=== PATIENT | male | born 1960 | race Two or more races ===

== ENCOUNTER 2024-04-28 13:36 | Emergency (ER) | payer MEDICARE, OTHER, SELFPAY ==
[2024-04-28 13:38] VITALS: BP 124/79; PULSE 101; RESP 18; TEMP 38.9; O2SAT 95
--- NOTE | 2024-04-28 13:41 | XR_ITS ---
Examination: AP chest single view TECHNIQUE: AP portable semiupright chest single view Exam date and time: April 28, 2024 1357 hours INDICATIONS: Sepsis fever today. FINDINGS: Minor atelectasis right midlung Minor prominence left ventricle No lobar pneumonia or pulmonary edema Old fracture right clavicle IMPRESSION: No lobar pneumonia or pulmonary edema
--- NOTE | 2024-04-28 13:41 | EKG_ITS ---
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
--- NOTE | 2024-04-28 13:42 | EDNOTE_ITS ---
ED General RME/HPI General Chief complaint: Fever Stated complaint: FEVER/ RT LEG SWELLING Time Seen by Provider: 04/28/24 13:39 Arrival date/time: 04/28/24 13:36 CC: Fever HPI patient presents to the emergency room via EMS with warm to touch. This was referred by wound care nurse for right foot wound. The patient is a diabetic with multiple amputation including a left BKA, right hand has had digits 2 through 5 amputated. Right foot is in a heavy dressing. Patient is awake alert and oriented. Related Data Home Medications ?Medication ?Instructions ?Recorded ?Confirmed insulin glargine 100 unit/mL (3 35 unit subcut BID 06/24/20 04/09/24 mL) subcutaneous pen (Lantus Solostar U-100 Insulin) metformin 1,000 mg tablet 1,000 mg PO BID 06/24/20 04/09/24 aspirin 81 mg tablet,delayed 81 mg PO QDAY 03/23/22 04/09/24 release gabapentin 300 mg capsule 300 mg PO QDAY 01/01/24 04/09/24 rosuvastatin 20 mg tablet 20 mg PO QDAY 01/01/24 04/09/24 tamsulosin 0.4 mg capsule (Flomax) 0.4 mg PO DAILY 01/01/24 04/09/24 bumetanide 1 mg tablet 1 mg PO BID 01/19/24 04/09/24 Previous Rx's ?Medication ?Instructions ?Recorded levofloxacin 750 mg tablet 750 mg PO Q24H 10 days #10 tabs 04/28/24 Allergies Allergy/AdvReac Type Severity Reaction Status Date / Time No Known Allergies Allergy Verified 04/28/24 14:49 Review of Systems Review of Systems Narrative Review of Systems: GEN: + fever, no chills, no weight loss EYES: No discharge, no visual changes, no pain HEENT: No ear pain, no congestion, no sore throat PULM: No shortness of breath, no cough, no congestion CV: No chest pain, no dyspnea on exertion, no palpitations GI: No nausea, no vomiting, no diarrhea, no pain, no constipation : No frequency, no urgency, no dysuria MUSC/SKEL: No joint pain, no back pain SKIN: No rash PSYCH: No hallucinations, no depression HEME/LYMPH: No easy bleeding or bruising tendencies NEURO: No weakness, no headache Past Medical History Past Medical History NEUROLOGIC: Positive Neurological Disorders and Peripheral Neuropathy; Negative Cerebrovascular Accident, Transient Ischemic Attacks (TIA), Dementia, Alzheimer's Disease, Parkinson's Disease, Brain Tumor, Meningitis, Seizures, Epilepsy, Multiple Sclerosis, Cerebral Palsy, Amyotrophic Lateral Sclerosis (ALS/Sara Gehrig's), Guillain-[place] Syndrome, Spina Bifida, Paralysis, Eldridge's Palsy, Subdural Hematoma, Migraine, Head Trauma, Spinal Cord Injury or Traumatic Brain Injury CARDIAC: Positive Cardiac Disorders, Myocardial Infarction, Coronary Artery Disease, Hypercholesterolemia, Cellulitis and Hypertension; Negative Cardiac Arrhythmia, Atrial Fibrillation, Angina, Heart Murmur, Atherosclerotic Heart Disease, Peripheral Vascular Disease, Aneurysm, Congestive Heart Failure, Congenital Heart Disease, Valvular Heart Disease, Rheumatic Fever, Cardiomyopathy, Edema, Pericarditis, Deep Vein Thrombosis, Hypotension or Varicose Veins RESPIRATORY: Positive Pneumonia; Negative Chronic Obstructive Pulmonary Disease (COPD), Asthma, Bronchitis, Emphysema, Pulmonary Fibrosis, Cystic Fibrosis, Tuberculosis, Pulmonary Embolism, Pulmonary Edema or Sleep Apnea GASTROINTESTINAL: Negative Gastrointestinal Disorders, Hepatitis, Cirrhosis, Pancreatitis, Celiac Disease, Gall Bladder Disease, Gastrointestinal Bleed, Esophageal Varices, Mclaughlin's Esophagus, Colitis, Ulcerative Colitis, Diverticulitis, Diverticulosis, Ulcer, Colorectal Cancer, Irritable Bowel, Crohn's Disease, Obstructive Bowel, Hiatal Hernia, Hemorrhoids, Gastroesophageal Reflux Disease or Obesity GENITOURINARY: Negative Genitourinary Disorders, Renal Disease, Kidney Stones, Polycystic Kidney Disease, Neurogenic Bladder, Inguinal Hernia, Dialysis, Prostate Cancer or Benign Prostatic Hyperplasia REPRODUCTIVE: Negative Breast Cancer or Testicular Cancer MUSCULOSKELETAL: Positive Musculoskeletal Disorders and Arthritis (Elbow); Negative Muscular Dystrophy, Myasthenia Gravis, Marfan's Syndrome, Bone Cancer, Rheumatoid Arthritis, Osteoporosis, Degenerative Disk Disease, Gout, Scoliosis, Carpal Tunnel Syndrome, Fibromyalgia, Fractures, Degenerative Joint Disease, Osteomyelitis or Poliovirus ENT: Negative Cataracts, Glaucoma, Blind, Retinal Detachment, Macular Degeneration, Ear Infection, Deafness, Head Trauma or Eye Prosthesis ENDOCRINE: Positive Endocrine Disorders and Diabetes Mellitus Type 2; Negative Diabetes Mellitus Type 1, Hypoglycemia, [place]'s Syndrome, Eusebio's Disease, Hyperthyroidism, Hypothyroidism, Parathyroid Disease, Pituitary Disease, Systemic Lupus Erythematosus, Syndrome of Inappropriate Antidiuretic Hormone (SIADH), Adrenal Disease or Graves' Disease HEMATOLOGIC: Negative Blood Disorders, Anemia, Leukemia, Hemophilia, Thalassemia, Sickle Cell Disease or Clotting Problems PSYCHO/SOCIAL: Negative Psychiatric Problems, Schizophrenia, Recreational Drug Use, Bipolar Disorder, Depression, Anxiety, Behavior Problems, Self-Mutilation, Attention Deficit Disorder, Attention Deficit Hyperactivity Disorder, Post Traumatic Stress Disorder or Eating Disorder OTHER HISTORY: Positive Hospitalization and Chicken Pox; Negative Autoimmune Disease, Down Syndrome, Autism, Developmental Delay, Shingles, Falls, Blood Transfusions, Blood Transfusion Reaction, Anesthesia Reactions, Organ Transplant, Chemotherapy, Radiation Therapy, Hyperbaric Therapy, MRSA, VRSA, Vancomycin-Resistant Enterococci, Human Immunodeficiency Virus (HIV), Measles, Mumps, Rubella ([place]ese Measles), Pertussis, Clostridium Difficile, Cancer, Breast Cancer, Colorectal Cancer, Lung Cancer, Prostate Cancer or Testicular Cancer Family History FAMILY HISTORY: Positive Family Cardiac Disorders; Negative Family Psychiatric Problems, Family Respiratory Disorders, Family Gastrointestinal Problems, Family Cancer, Family Surgery or Family Anesthesia Reaction Surgical History SURGICAL: Positive Coronary Stent, Cardiac Catheterization and Angiogram; Negative Cardiac Surgery, Open Heart Surgery, Coronary Artery Bypass Graft, Valve Replacement, Vascular Surgery, Pacemaker, Auto Implanted Cardiovert Defib, Carotid Endarterectomy, Endocrine Surgery, Thyroidectomy, Ear Surgery, Tympanostomy Tube, Eye Surgery, Nose Surgery, Oral Surgery, Tonsillectomy, Adenoidectomy, Cochlear Implant, Corneal Transplant, Throat Surgery, Abdominal Surgery, Tracheostomy, Gastric Bypass Surgery, Gastrostomy, Bowel Surgery, Nephrectomy, Transurethral Resection, Joint Replacement, Amputation, Open Reduction Internal Fixation, Arthroscopy, Neurologic Surgery, Brain Shunt, Vasectomy or Organ Transplant Social History SMOKING STATUS: Never smoker SECOND HAND EXPOSURE: No ED Exam Narrative Physical exam: [General: Mild discomfort but not in any no acute distress Head normocephalic HEENT: Eyes pupils are PERRLA EOMs are intact substance use CT within acceptable limits Neck is supple nontender Chest equal chest rise nontender to palpation Respiratory: Clear to auscultation no wheezes crackles or rubs CV: Rate rhythm is regular no murmurs rubs or clicks Abdomen is distended secondary to body habitus soft nontender no masses positive bowel sounds all 4 quadrants Back: No CVA tenderness no spinous process tenderness from cervical spine thoracic and lumbar spine Skin: Intact no petechiae rash induration ulceration or crepitus Extremities: Left BKA clean dry and intact, right hand amputation of digits 2 through 5 sites are clean dry and intact, right foot: Moving all extremity against resistance cap refill less than 2 seconds neurosensory intact Neuro: Awake alert oriented x3 Glascow coma 15 no focal deficits] Course Course Course Narrative: Patient case discussed with Dr. Garnett who agrees with the discharge plan. Quality Measures none Orders Category Date Time Status Daycare Provider STAT Care 04/28/24 13:41 Active Continuous Pulse Oximetry STAT Care 04/28/24 13:41 Active EKG (ED ONLY) *Do not use* NOW Care 04/28/24 13:41 Completed In and Out Catheter X1PRN Care 04/28/24 13:41 Active Insert IV NOW Care 04/28/24 13:41 Active NPO STAT Care 04/28/24 13:41 Active Strict Intake and Output Routine Care 04/28/24 13:41 Ordered EKG (ED Only) Stat Exams 04/28/24 13:41 Draft XR chest 1V Stat Exams 04/28/24 13:41 Completed XR foot comp RT min 3V Stat Exams 04/28/24 15:52 Completed B-Type Natriuretic Peptide Stat Lab 04/28/24 13:51 Completed Blood Culture (Lab) Stat Lab 04/28/24 13:41 Received CBC Stat Lab 04/28/24 13:51 Completed Comprehensive Metabolic Panel Stat Lab 04/28/24 13:51 Completed LDH (Lactate Dehydrogenase) Stat Lab 04/28/24 13:51 Completed Lactate (Lactic Acid) Stat Lab 04/28/24 13:51 Completed Lipase Stat Lab 04/28/24 13:51 Completed Magnesium Stat Lab 04/28/24 13:51 Completed Partial Thromboplastin Time Stat Lab 04/28/24 13:51 Completed Phosphorous Stat Lab 04/28/24 13:51 Completed Procalcitonin Stat Lab 04/28/24 13:51 Completed Prothrombin Time with INR Stat Lab 04/28/24 13:51 Completed Troponin I Stat Lab 04/28/24 13:51 Completed Urinalysis Stat Lab 04/28/24 15:27 Completed Urine Culture Stat Lab 04/28/24 15:27 Received cefTRIAXone [Rocephin] 1,000 mg Med 04/28/24 17:03 Discontinued Lidocaine 1% 20 ml [Xylocaine 1% 20 ML] 2.1 ml IM X1 cefTRIAXone/D5w 1gm IV premix [Rocephin/D5w 1gm IV Med 04/28/24 16:33 Discontinued premix] 50 ml IV X1 Oxygen Delivery NOW RT 04/28/24 13:41 Active Vital Signs Vital signs: Vital Signs Temperature 102.1 F H 04/28/24 13:38 Pulse Rate 101 H 04/28/24 13:38 Respiratory Rate 18 04/28/24 13:38 Blood Pressure 124/79 04/28/24 13:38 Pulse Oximetry (%) 95 04/28/24 13:38 Oxygen Delivery Method Room Air 04/28/24 13:38 [facility] Patient data External records reviewed:: [facility] previous records and EMS form Clinical information provided by:: patient and EMS Social determinants that could affect healthcare access:: none Patient has the following chronic illnesses:: Diabetes multiple amputations How is presenting disease/condition affected by chronic disease/condition?: u neffected by Evaluation data The following diagnostics were reviewed and interpreted by me:: lab results and radiology exam(s) Lab and/or radiology exams considered but not ordered:: CBC shows leukocytosis 16 5 there is a stable anemia with a hemoglobin of 9.5 CMP shows sodium 131 potassium of 4.6 chloride of 98 CO2 of 24.2 BUN of 36 creatinine 1.80 blood glucose level of 209 BNP of 847 Troponin of 0.138 when reviewed 2 other troponins in the past they have all been elevated and this is the lowest in a considerable amount of time Lipase 34 Pro-Jose 0.27. EKG performed at 1636 shows ventricular rate of 91 MN interval 152 QRS of 96 QTc of 407 this is sinus rhythm nonspecific ST segment changes. Urine is leukocyte Estrace positive with WBCs greater than 3000 yeast no bacteria identified. Interpretation Summary: I suspect this is all related to the urine as it is grossly infected. Patient will be discharged home on Levaquin I feel that the patient's foot is chronic osteomyelitis. Medications Medications considered but not ordered:: None Medication administrations:: Medication Administration History Discontinued Medications Ceftriaxone Sodium 1,000 mg/ (Lidocaine HCl 2.1 ml) 0 mg IM X1 ONE Stop: 04/28/24 17:04 Ceftriaxone Sodium/Dextrose (Rocephin/D5w 1gm Iv Premix) 50 mls @ 100 mls/hr IV X1 ONE Stop: 04/28/24 17:02 None Consultations Consultation(s) initiated? (list below): No Diagnosis Differential Diagnosis ED Complaint MDM: Osteomyelitis UTI sepsis Most likely diagnosis given after review of the tests above:: UTI Admission Indicated Admission indicated?: not indicated Explain why admission is indicated or not indicated:: Stable for discharge Admission Request Was there a request for admission?: No Disposition Plan Disposition Plan: Discharge Discharge Attestation Discharge Attestation: The patient and all family members were given an opportunity to ask questions and understood the discharge instructions. Discharge instructions specifically effects, indications for sooner follow up or return to the emergency department, and the expected course of current diagnosis. Patient condition: Stable Medical Decision Making Differential Diagnosis Differential Diagnosis: Osteomyelitis UTI sepsis Lab Data 04/28/24 13:51 04/28/24 13:51 Labs: Lab Results 04/28/24 04/28/24 Range/Units 13:51 15:27 WBC 16.5 H (3.8-10.6) Thou/mm3 RBC 3.93 L (4.50-5.90) Miln/mm3 Hgb 9.8 L (13.5-16.0) g/dL Hct 29.5 L (41.0-53.0) % MCV 75 L (80-100) fL MCH 24.9 L (25.0-35.0) pg MCHC 33.2 (31.0-37.0) g/dl RDW Std Deviation 43.9 (35.1-43.9) fL Plt Count 404 D (140-440) Thou/mm3 Neut % (Auto) 85 H (37-80) % Lymph % (Auto) 8 L (10-50) % [place] % (Auto) 6 (0-12) % Eos % (Auto) 0 (0-10) % Baso % (Auto) 0 (0-2.5) % Neut # (Auto) 14.1 H (1.8-7.7) Thou/mm3 Lymph # (Auto) 1.2 (1.0-4.8) Thou/mm3 [place] # (Auto) 1.1 H (0.0-0.8) Thou/mm3 Eos # (Auto) 0.0 (0.0-0.5) Thou/mm3 Baso # (Auto) 0.0 (0.0-0.2) Thou/mm3 Immature Gran # (Auto) 0.09 H (0.00-0.00) Thou/mm3 Absolute Nucleated RBC 0.00 (0.00-0.00) Thou/mm3 Immature Gran % 1 H (0-0) % Nucleated RBC % 0 (0) /100 WBC PT 11.1 (9.0-12.2) Seconds INR 1.0 (0.9-1.3) APTT 35.4 (22.0-36.0) Seconds Sodium 131 L (136-145) mMol/L Potassium 4.6 (3.4-5.1) mMol/L Chloride 98 (98-107) mMol/L Carbon Dioxide 24.2 (20.0-31.0) mMol/L Anion Gap 9 (7-16) BUN 36 H (9-23) mg/dL Creatinine 1.8 H (0.6-1.3) mg/dL Estim Creat Clear Calc 40.9 L (>60) mL/min eGFR 41 L (60 - ) See Note BUN/Creatinine Ratio 20 (12-20) Ratio Glucose 209 H (74-106) mg/dL Calculated Osmolality 276 (275-295) Lactic Acid 1.0 (0.4-2.0) mMol/L Calcium 9.2 (8.3-10.6) mg/dL Corrected Calcium 9.2 (8.5-10.1) mg/dL Phosphorus 3.5 (2.4-5.1) mg/dL Magnesium 1.7 (1.6-2.6) mg/dL Total Bilirubin 0.6 (0.3-1.2) mg/dL AST < 8 (0-34) U/L ALT 11 (10-49) U/L Alkaline Phosphatase 120 H (46-116) U/L Lactate Dehydrogenase 117 L (120-246) U/L Troponin I 0.138 H* (0.0-0.045) ng/mL B-Natriuretic Peptide 847 H* (0-100) pg/mL Total Protein 7.7 (5.7-8.2) gm/dL Albumin 4.1 (3.4-4.8) gm/dL Globulin 3.6 H (2.3-3.5) gm/dL Albumin/Globulin Ratio 1.1 L (1.2-2.2) Lipase 34 (12-53) U/L Procalcitonin 0.27 (0.0-0.49) ng/ml Ur Collection Type Clean Catch Urine Color Yellow (Lt Yel-Yel) Urine Clarity Turbid A (Clear/Hazy) Urine pH 6.0 (5.0-7.0) Ur Specific Binger 1.016 (1.001-1.035) Urine Protein 2+ A (Neg - Trace) Urine Glucose (UA) Negative (Negative) Urine Ketones Trace (Negative) Urine Blood 2+ A (Negative) Urine Nitrite Negative (Negative) Urine Bilirubin Negative (Negative) Urine Urobilinogen (Auto) Negative (0.0-1.0) mg/dL Ur Leukocyte Esterase Positive (Negative) Urine RBC 33 H (0-3) /hpf Urine WBC 3049 H (0-5) /hpf Ur Squamous Epith Cells 0 (0-5) /hpf Ur Transition Epith Cell 2 (0-5) /hpf Urine Bacteria None (None) Urine Yeast (Budding) Present A (None) Discharge Plan Plan Patient Disposition: HOME (Self Care) Patient condition on transfer: Stable Prescriptions/Referrals Prescriptions/Med Rec: New levofloxacin 750 mg tablet 750 mg PO Q24H 10 Days Qty: 10 0RF No Action metformin 1,000 mg tablet 1,000 mg PO BID Lantus Solostar U-100 Insulin 100 unit/mL (3 mL) insulin pen 35 unit subcut BID aspirin 81 mg Tablet,Delayed Release (Dr/Ec) 81 mg PO QDAY rosuvastatin 20 mg Tablet 20 mg PO QDAY gabapentin 300 mg Capsule 300 mg PO QDAY tamsulosin [Flomax] 0.4 mg Capsule 0.4 mg PO DAILY bumetanide 1 mg tablet 1 mg PO BID Patient Comments: TAKE 1 TABLET BY MOUTH DAILY FOR ACUTE PULMONARY EDEMA. Referrals: Jalil Le MD [Primary Care Provider] - In 1 week Problem List Clinical Impression: UTI (urinary tract infection) Patient/Caregiver Discharge Instructions Education Materials: Diabetes Treat Severe Foot Infecs, ED Bladder Infection, Male (Adult) Additional Instructions: Take the medications as prescribed if there is a worsening of symptoms return the emergency room immediately for further evaluation. Print Language: Mohawk Stand Alone Forms: [employer] Award Info., Work/School Release, Patient Portal Info Letter Attestation Attestation The patient was seen by the midlevel practitioner. I, the co-signing physician, was present during the entire ER visit. While I did not physically examine the patient, I was available for consultation as needed.
[2024-04-28 13:58] VITALS: PULSE 84; RESP 20; O2SAT 97; BMI 23.3
[2024-04-28 14:06] LABS: Basophils % (Auto) 0 % (0-2.5); Eosinophils % (Auto) 0 % (0-10); Hematocrit 29.5 % (41.0-53.0); Hemoglobin 9.8 g/dL (13.5-16.0); Immature Granulocytes % (Auto) 1 % (0-0); Immature Granulocytes Auto 0.09 Thou/mm3 (0.00-0.00); Lymphocytes # (Auto) 1.2 Thou/mm3 (1.0-4.8); Lymphocytes % (Auto) 8 % (10-50); Mean Corpuscular HGB Conc 33.2 g/dl (31.0-37.0); Mean Corpuscular Hemoglobin 24.9 pg (25.0-35.0); Mean Corpuscular Volume 75 fL (80-100); Monocytes # (Auto) 1.1 Thou/mm3 (0.0-0.8); Monocytes % (Auto) 6 % (0-12); Neutrophils # (Auto) 14.1 Thou/mm3 (1.8-7.7); Neutrophils % (Auto) 85 % (37-80); Nucleated Red Blood Cell % 0 /100 WBC (0); Platelet Count 404 Thou/mm3 (140-440); RDW Standard Deviation 43.9 fL (35.1-43.9); Red Blood Count 3.93 Miln/mm3 (4.50-5.90); White Blood Count 16.5 Thou/mm3 (3.8-10.6)
[2024-04-28 14:12] VITALS: BP 120/68; PULSE 98; RESP 15; TEMP 38.6; O2SAT 95
[2024-04-28 14:23] LABS: B-Type Natriuretic Peptide 847 pg/mL (0-100)
[2024-04-28 14:34] LABS: Alanine Aminotransferase 11 U/L (10-49); Albumin, Serum 4.1 gm/dL (3.4-4.8); Albumin/Globulin Ratio 1.1 (1.2-2.2); Alkaline Phosphatase 120 U/L (46-116); Anion Gap 9 (7-16); Aspartate Amino Transferase < 8 U/L (0-34); BUN/Creatinine Ratio 20 Ratio (12-20); Bilirubin,Total 0.6 mg/dL (0.3-1.2); Blood Urea Nitrogen 36 mg/dL (9-23); Calcium 9.2 mg/dL (8.3-10.6); Calcium (Corrected) 9.2 mg/dL (8.5-10.1); Carbon Dioxide 24.2 mMol/L (20.0-31.0); Chloride 98 mMol/L (98-107); Creatinine (Component) 1.8 mg/dL (0.6-1.3); Estimated Creatinine Clearance 40.9 mL/min (>60); Globulin 3.6 gm/dL (2.3-3.5); Glucose 209 mg/dL (74-106); LDH (Lactate Dehydrogenase) 117 U/L (120-246); Lipase 34 U/L (12-53); Magnesium 1.7 mg/dL (1.6-2.6); Osmolality,Calculated 276 (275-295); Phosphorous 3.5 mg/dL (2.4-5.1); Potassium 4.6 mMol/L (3.4-5.1); Procalcitonin 0.27 ng/ml (0.0-0.49); Sodium 131 mMol/L (136-145); Total Protein 7.7 gm/dL (5.7-8.2); eGFR 41 See Note
[2024-04-28 14:38] LABS: Troponin I 0.138 ng/mL (0.0-0.045)
[2024-04-28 15:21] VITALS: BP 133/72; PULSE 99; RESP 16; TEMP 38.1; O2SAT 98
[2024-04-28 15:40] LABS: Collection Type, Urine Clean Catch; Squamous Epithelial Cell,Urine 0 /hpf (0-5)
--- NOTE | 2024-04-28 15:52 | XR_ITS ---
Examination: Foot, right, 3 views Technique: AP, oblique, lateral views foot, 3 views Date and time of exam: April 28, 2024 1555 hours Comparison December 31, 2023 INDICATIONS: Nonhealing ulcer right foot, status post amputation at the level of the metatarsals FINDINGS: Amputation deformities proximal metatarsals Large ulcer at the amputation site Cortical bone destruction at the amputated second and first metatarsals IMPRESSION: Osteomyelitis involving the amputated ends first and second metatarsals Recommend MRI foot without contrast follow-up
[2024-04-28 15:58] LABS: Partial Thromboplastin Time 35.4 Seconds (22.0-36.0); Prothrombin Time 11.1 Seconds (9.0-12.2)
[2024-04-28 16:16] LABS: Bilirubin,Urine Negative (Negative); Blood,Urine 2+ (Negative); Budding Yeast,Urine Present; Glucose, Urine Negative (Negative); Ketones,Urine Trace (Negative); Leukocyte Esterase,Urine Positive (Negative); Nitrite,Urine Negative (Negative); Protein,Urine 2+ (Neg - Trace); RBC,Urine 33 /hpf (0-3); Specific Gravity,Urine 1.016 (1.001-1.035); Transitional Epi Cells,Urine 2 /hpf (0-5); Urobilinogen,Urine Negative mg/dL (0.0-1.0); WBC,Urine 3049 /hpf (0-5)
[2024-04-28 16:17] LABS: Clarity,Urine Turbid (Clear/Hazy); Color,Urine Yellow (Lt Yel-Yel)
[2024-04-28 17:16] VITALS: PULSE 95; RESP 16; RESP 98
--- NOTE | 2024-04-28 17:23 | PC.CC ---
Dawn PRADHAN was consulted regarding transportation for the patient. Dawn PRADHAN met with the patient face to face. Patient reports ASW can contact his Shreya for transportation. 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 BERONICAW provided update to LESLIE Petty.
[2024-04-28] MEDS: cefTRIAXone 1,000 MG, LIDOCAINE 1% 20 ML 2.1 ML IM (17:35)
== END 2024-04-28 17:49 | disposition home or self-care (01) ==
PROVIDERS: Registered Nurse General Practice; Emergency Provider Emergency Medicine; PCP Family Medicine
DX: N39.0 Urinary tract infection, site not specified (principal); E11.69 Type 2 diabetes mellitus with other specified complication; M86.671 Other chronic osteomyelitis, right ankle and foot; E78.00 Pure hypercholesterolemia, unspecified; I10 Essential (primary) hypertension; Z89.512 Acquired absence of left leg below knee; Z79.84 Long term (current) use of oral hypoglycemic drugs
CPT/HCPCS: 36415; 71045; 73630; 80053; 81001; 83605; 83615; 83690; 83735; 83880; 84100; 84145; 84484; 85025; 85610; 85730; 87040; 87086; 93005; 99283; J0696; J3490

== ENCOUNTER 2024-05-27 17:29 | Inpatient (IN) | payer OTHER, MEDICARE, SELFPAY ==
--- NOTE | 2024-05-27 17:51 | XR_ITS ---
Examination: AP chest single view Technique one AP portable semiupright chest single view Exam date and time: May 27, 2024 at 1908 hrs. Comparison April 28, 2024 Indications: SOB today. Findings: Mild prominence left ventricle Prominent vascular congestion with perihilar edema and possible pneumonia The osseous structures are intact Impression: Findings most consistent with heart failure with perihilar edema, superimposed bilateral pneumonia not excluded, clinical correlation advised
[2024-05-27 18:17] VITALS: BP 106/70; PULSE 88; RESP 18; TEMP 36.6; O2SAT 99
[2024-05-27 18:43] LABS: Beta Hydroxybutyrate 1.7 mmol/L (<0.6)
[2024-05-27 18:44] LABS: Basophils % (Auto) 0 % (0-2.5); Eosinophils # (Auto) 0.2 Thou/mm3 (0.0-0.5); Eosinophils % (Auto) 1 % (0-10); Hematocrit 27.3 % (41.0-53.0); Immature Granulocytes % (Auto) 3 % (0-0); Immature Granulocytes Auto 0.56 Thou/mm3 (0.00-0.00); Lymphocytes # (Auto) 0.9 Thou/mm3 (1.0-4.8); Lymphocytes % (Auto) 5 % (10-50); Mean Corpuscular HGB Conc 31.5 g/dl (31.0-37.0); Mean Corpuscular Hemoglobin 24.3 pg (25.0-35.0); Mean Corpuscular Volume 77 fL (80-100); Monocytes # (Auto) 0.6 Thou/mm3 (0.0-0.8); Monocytes % (Auto) 3 % (0-12); Neutrophils # (Auto) 16.2 Thou/mm3 (1.8-7.7); Neutrophils % (Auto) 87 % (37-80); Nucleated Red Blood Cell # 0.06 Thou/mm3 (0.00-0.00); Nucleated Red Blood Cell % 0 /100 WBC (0); Platelet Count 440 Thou/mm3 (140-440); RDW Standard Deviation 50.6 fL (35.1-43.9); Red Blood Count 3.54 Miln/mm3 (4.50-5.90); White Blood Count 18.5 Thou/mm3 (3.8-10.6)
[2024-05-27 18:55] LABS: Hemoglobin 8.6 g/dL (13.5-16.0)
--- NOTE | 2024-05-27 19:11 | EKG_ITS ---
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 By: Erik Koenig Order Number: [id number] Reading MD: Erik Koenig Measurements Intervals [place] Rate: 95 P: 23 FL: 173 QRS: 6 QRSD: 100 T: 21 QT: 374 QTc: 470 Interpretive Statements SINUS RHYTHM WITH OCCASIONAL VENTRICULAR PREMATURE COMPLEXES LOW QRS VOLTAGE IN EXTREMITY LEADS [QRS DEFLECTION < 0.5 mV IN LIMB LEADS] POSSIBLE ANTERIOR MYOCARDIAL INFARCTION , OF INDETERMINATE AGE [30 ms Q WAVE IN V3/V4, OR R < 0.2 mV IN V4] Compared to ECG 04/28/2024 16:36:58 Ventricular premature complex(es) now present Low QRS voltage now present Myocardial infarct finding still present /store/S0/[id number]/[id number]
[2024-05-27] MEDS: SODIUM CHLORIDE 0.9% 1000 ML 1,000 ML 999 ML IV ×2 (19:25)
[2024-05-27 19:31] VITALS: BP 121/74; PULSE 96; RESP 16; TEMP 36.5; O2SAT 96
--- NOTE | 2024-05-27 19:31 | PD.EDADULT ---
ED General RME/HPI General Chief complaint: Shortness of Breath/Dyspnea Stated complaint: SOB Time Seen by Provider: 05/27/24 17:46 Arrival date/time: 05/27/24 17:29 CC: Weakness high blood sugar HPI patient presents to the ER with generalized weakness x 1 day patient admits he has not been taking any of his medications including his insulin. EMS report that the blood sugars read high . Patient denies chest pain shortness of breath or difficulty breathing. Patient has no specific an explanation why he did not take his insulin Related Data Home Medications ?Medication ?Instructions ?Recorded ?Confirmed insulin glargine 100 unit/mL (3 35 unit subcut BID 06/24/20 05/28/24 mL) subcutaneous pen (Lantus Solostar U-100 Insulin) metformin 1,000 mg tablet 1,000 mg PO BID 06/24/20 05/28/24 aspirin 81 mg tablet,delayed 81 mg PO QDAY 03/23/22 05/28/24 release gabapentin 300 mg capsule 300 mg PO QDAY 01/01/24 05/28/24 rosuvastatin 20 mg tablet 20 mg PO QDAY 01/01/24 05/28/24 tamsulosin 0.4 mg capsule (Flomax) 0.4 mg PO DAILY 01/01/24 05/28/24 bumetanide 1 mg tablet 1 mg PO BID 01/19/24 05/28/24 Allergies Allergy/AdvReac Type Severity Reaction Status Date / Time No Known Allergies Allergy Verified 05/28/24 05:31 Review of Systems Review of Systems Narrative Review of Systems: GEN: No fever, no chills, no weight loss EYES: No discharge, no visual changes, no pain HEENT: No ear pain, no congestion, no sore throat PULM: No shortness of breath, no cough, no congestion CV: No chest pain, no dyspnea on exertion, no palpitations GI: No nausea, no vomiting, no diarrhea, no pain, no constipation : No frequency, no urgency, no dysuria MUSC/SKEL: No joint pain, no back pain SKIN: No rash PSYCH: No hallucinations, no depression HEME/LYMPH: No easy bleeding or bruising tendencies NEURO: + weakness, no headache Past Medical History Past Medical History NEUROLOGIC: Positive Neurological Disorders and Peripheral Neuropathy; Negative Cerebrovascular Accident, Transient Ischemic Attacks (TIA), Dementia, Alzheimer's Disease, Parkinson's Disease, Brain Tumor, Meningitis, Seizures, Epilepsy, Multiple Sclerosis, Cerebral Palsy, Amyotrophic Lateral Sclerosis (ALS/Sara Gehrig's), Guillain-Chenoa Syndrome, Spina Bifida, Paralysis, Eldridge's Palsy, Subdural Hematoma, Migraine, Head Trauma, Spinal Cord Injury or Traumatic Brain Injury CARDIAC: Positive Cardiac Disorders, Myocardial Infarction, Coronary Artery Disease, Hypercholesterolemia, Cellulitis and Hypertension; Negative Cardiac Arrhythmia, Atrial Fibrillation, Angina, Heart Murmur, Atherosclerotic Heart Disease, Peripheral Vascular Disease, Aneurysm, Congestive Heart Failure, Congenital Heart Disease, Valvular Heart Disease, Rheumatic Fever, Cardiomyopathy, Edema, Pericarditis, Deep Vein Thrombosis, Hypotension or Varicose Veins RESPIRATORY: Positive Pneumonia; Negative Chronic Obstructive Pulmonary Disease (COPD), Asthma, Bronchitis, Emphysema, Pulmonary Fibrosis, Cystic Fibrosis, Tuberculosis, Pulmonary Embolism, Pulmonary Edema or Sleep Apnea GASTROINTESTINAL: Negative Gastrointestinal Disorders, Hepatitis, Cirrhosis, Pancreatitis, Celiac Disease, Gall Bladder Disease, Gastrointestinal Bleed, Esophageal Varices, Mclaughlin's Esophagus, Colitis, Ulcerative Colitis, Diverticulitis, Diverticulosis, Ulcer, Colorectal Cancer, Irritable Bowel, Crohn's Disease, Obstructive Bowel, Hiatal Hernia, Hemorrhoids, Gastroesophageal Reflux Disease or Obesity GENITOURINARY: Negative Genitourinary Disorders, Renal Disease, Kidney Stones, Polycystic Kidney Disease, Neurogenic Bladder, Inguinal Hernia, Dialysis, Prostate Cancer or Benign Prostatic Hyperplasia REPRODUCTIVE: Negative Breast Cancer or Testicular Cancer MUSCULOSKELETAL: Positive Musculoskeletal Disorders and Arthritis (Elbow); Negative Muscular Dystrophy, Myasthenia Gravis, Marfan's Syndrome, Bone Cancer, Rheumatoid Arthritis, Osteoporosis, Degenerative Disk Disease, Gout, Scoliosis, Carpal Tunnel Syndrome, Fibromyalgia, Fractures, Degenerative Joint Disease, Osteomyelitis or Poliovirus ENT: Negative Cataracts, Glaucoma, Blind, Retinal Detachment, Macular Degeneration, Ear Infection, Deafness, Head Trauma or Eye Prosthesis ENDOCRINE: Positive Endocrine Disorders and Diabetes Mellitus Type 2; Negative Diabetes Mellitus Type 1, Hypoglycemia, Wally's Syndrome, Eusebio's Disease, Hyperthyroidism, Hypothyroidism, Parathyroid Disease, Pituitary Disease, Systemic Lupus Erythematosus, Syndrome of Inappropriate Antidiuretic Hormone (SIADH), Adrenal Disease or Graves' Disease HEMATOLOGIC: Negative Blood Disorders, Anemia, Leukemia, Hemophilia, Thalassemia, Sickle Cell Disease or Clotting Problems PSYCHO/SOCIAL: Negative Psychiatric Problems, Schizophrenia, Recreational Drug Use, Bipolar Disorder, Depression, Anxiety, Behavior Problems, Self-Mutilation, Attention Deficit Disorder, Attention Deficit Hyperactivity Disorder, Post Traumatic Stress Disorder or Eating Disorder OTHER HISTORY: Positive Hospitalization and Chicken Pox; Negative Autoimmune Disease, Down Syndrome, Autism, Developmental Delay, Shingles, Falls, Blood Transfusions, Blood Transfusion Reaction, Anesthesia Reactions, Organ Transplant, Chemotherapy, Radiation Therapy, Hyperbaric Therapy, MRSA, VRSA, Vancomycin-Resistant Enterococci, Human Immunodeficiency Virus (HIV), Measles, Mumps, Rubella (Bulgarian Measles), Pertussis, Clostridium Difficile, Cancer, Breast Cancer, Colorectal Cancer, Lung Cancer, Prostate Cancer or Testicular Cancer Family History FAMILY HISTORY: Positive Family Cardiac Disorders; Negative Family Psychiatric Problems, Family Respiratory Disorders, Family Gastrointestinal Problems, Family Cancer, Family Surgery or Family Anesthesia Reaction Surgical History SURGICAL: Positive Coronary Stent, Cardiac Catheterization and Angiogram; Negative Cardiac Surgery, Open Heart Surgery, Coronary Artery Bypass Graft, Valve Replacement, Vascular Surgery, Pacemaker, Auto Implanted Cardiovert Defib, Carotid Endarterectomy, Endocrine Surgery, Thyroidectomy, Ear Surgery, Tympanostomy Tube, Eye Surgery, Nose Surgery, Oral Surgery, Tonsillectomy, Adenoidectomy, Cochlear Implant, Corneal Transplant, Throat Surgery, Abdominal Surgery, Tracheostomy, Gastric Bypass Surgery, Gastrostomy, Bowel Surgery, Nephrectomy, Transurethral Resection, Joint Replacement, Amputation, Open Reduction Internal Fixation, Arthroscopy, Neurologic Surgery, Brain Shunt, Vasectomy or Organ Transplant Social History SMOKING STATUS: Never smoker SECOND HAND EXPOSURE: No ED Exam Narrative Physical exam: [General: Thin but not emaciated appears not in any acute distress Head normocephalic HEENT: Within acceptable limits Neck is supple nontender Chest equal chest rise nontender to palpation Respiratory: Clear to auscultation no wheezes crackles or rubs CV: Rate rhythm is regular no murmurs rubs or clicks Abdomen is soft nontender no masses positive bowel sounds all 4 quadrants Back: No CVA tenderness no spinous process tenderness from cervical spine thoracic and lumbar spine Skin: Intact no petechiae rash induration ulceration or crepitus Extremities: Moving all extremity against resistance cap refill less than 2 seconds neurosensory intact Neuro: Awake alert oriented x3 Glascow coma 15 no focal deficits] Course Quality Measures none Orders Category Date Time Status Admit to Inpatient Status Routine Admission 05/28/24 04:06 Active Patient Condition Routine Admission 05/28/24 04:06 Ordered Activity as Tolerated Routine Care 05/28/24 04:06 Ordered Bedside COVID-19 Antigen Test NOW Care 05/28/24 03:47 Active COVID-19 Screening Questionnaire NOW Care 05/28/24 03:58 Completed Continuous Pulse Oximetry NOW Care 05/28/24 04:05 Completed Decision to Admit X1 Care 05/28/24 03:58 Completed EKG (ED ONLY) *Do not use* NOW Care 05/27/24 19:11 Completed Flu & Pneumonia Vaccine Screen ONCE Care 05/28/24 04:05 Active Glucose [Bedside Blood Glucose] Q1HR Care 05/27/24 21:07 Completed NPO NOW Care 05/28/24 04:07 Active Notify provider NEEDED Care 05/28/24 04:06 Active Nurse Swallow Screen X1 Care 05/28/24 04:05 Active Obtain weight daily Care 05/28/24 04:06 Active Saline [Insert IV] NOW Care 05/27/24 19:07 Active Strict Intake and Output Routine Care 05/28/24 04:10 Ordered Referral Speech Therapy Routine Cons 05/28/24 04:10 Active Diet NPO (NOW) Diet 05/28/24 04:07 Completed EKG (ED Only) Stat Exams 05/27/24 19:11 Draft XR chest 1V Stat Exams 05/27/24 17:51 Completed XR foot comp RT min 3V Stat Exams 05/28/24 01:46 Completed BNP [B-Type Natriuretic Peptide] Stat Lab 05/28/24 01:52 Completed Beta Hydroxybutyrate Stat Lab 05/27/24 19:34 Completed Blood Culture (Lab) Stat Lab 05/28/24 13:05 Received CBC AM DRAW Lab 05/28/24 04:47 Completed CBC AM DRAW Lab 05/29/24 05:00 Ordered CBC AM DRAW Lab 05/30/24 05:00 Ordered CBC Stat Lab 05/27/24 18:12 Completed CMP [Comprehensive Metabolic Panel] Stat Lab 05/27/24 19:34 Completed CMP [Comprehensive Metabolic Panel] Stat Lab 05/27/24 22:36 Completed Comprehensive Metabolic Panel AM DRAW Lab 05/28/24 04:47 Completed Comprehensive Metabolic Panel AM DRAW Lab 05/29/24 05:00 Ordered Comprehensive Metabolic Panel AM DRAW Lab 05/30/24 05:00 Ordered Magnesium AM DRAW Lab 05/28/24 04:47 Completed Phosphorous AM DRAW Lab 05/28/24 04:47 Completed Acetaminophen Tab [Tylenol Tab] Med 05/28/24 04:05 Active 650 mg PO Q6H PRN Furosemide Inj [Lasix Inj] Med 05/28/24 04:05 Discontinued 40 mg IVP X1 ONE Heparin Inj Med 05/28/24 09:00 Discontinued 5,000 unit SC Q12HR Insulin Regular Med 05/27/24 20:47 Discontinued 10 unit IV X1 ONE Ondansetron Inj [Zofran Inj] Med 05/28/24 04:05 Active 4 mg IV Q6H PRN Pantoprazole Inj [Protonix Inj] Med 05/28/24 09:00 Discontinued 40 mg IVP QDAY Senna [Senokot] Med 05/28/24 09:00 Active 1 tab PO QDAY Sodium Chloride 0.9% 1000 ml [Ns] 1,000 ml Med 05/27/24 19:07 Discontinued IV 999 mls/hr Sodium Chloride 0.9% 1000 ml [Ns] 1,000 ml Med 05/27/24 19:07 Discontinued IV 999 mls/hr Code Status Routine Oth 05/28/24 04:05 Ordered Vital Signs Vital signs: Vital Signs Temperature 97.9 F 05/27/24 18:17 Pulse Rate 88 05/27/24 18:17 Respiratory Rate 18 05/27/24 18:17 Blood Pressure 106/70 05/27/24 18:17 Pulse Oximetry (%) 99 05/27/24 18:17 Oxygen Delivery Method Room Air 05/27/24 18:17 [facility] Patient data External records reviewed:: [facility] previous records and EMS form Clinical information provided by:: patient and EMS Social determinants that could affect healthcare access:: none Patient has the following chronic illnesses:: Diabetes multiple amputations How is presenting disease/condition affected by chronic disease/condition?: exacerbated by Evaluation data The following diagnostics were reviewed and interpreted by me:: lab results, radiology exam(s) and EKG tracing(s) Lab and/or radiology exams considered but not ordered:: EKG performed at 1933 shows a ventricular rate of 95 FL interval 173 QRS of 100 QTc of 426 with a sinus rhythm poor conduction CMP shows pseudohyponatremia of 125 potassium of 5.4 chloride of 9 1 CO2 of 21.0 BUN of 75 creatinine of 2.5. No transaminitis or T. bili elevation. Interpretation Summary: Hyperglycemia Medications Medications considered but not ordered:: None Medication administrations:: Medication Administration History Acetaminophen (Acetaminophen 325 Mg Tablet) 650 mg PO Q6H PRN PRN Reason: Pain 1-3 and/or Fever >100.1 Stop: 06/27/24 04:04 Bumetanide (Bumetanide Inj 0.25 Mg/Ml Vial 4 Ml) 1 mg IVP BID KENNY Stop: 06/27/24 08:59 Last Admin: 05/28/24 21:29 Dose: 1 mg Documented By: SS Dextrose (Dextrose 50%-Water Inj 50 Ml Syringe) 25 ml IV Q15MIN PRN PRN Reason: BG 50-70 responsive npo pt Stop: 06/27/24 04:11 Dextrose (Dextrose 50%-Water Inj 50 Ml Syringe) 50 ml IV Q15MIN PRN PRN Reason: BG <50 OR BG <70 & pt unresponsive Stop: 06/27/24 04:11 Glucagon (Glucagon Inj 1 Mg Vial) 1 mg IM Q15MIN PRN PRN Reason: BG <70, and no IV access Vancomycin/Sodium Chloride (Vancomycin/Ns 1 Gm Ivpb) 200 mls @ 200 mls/hr IV X1 KENNY Stop: 06/04/24 09:59 Vancomycin/Sodium Chloride (Vancomycin/Ns 750 Mg Ivpb) 750 mg in 150 mls @ 150 mls/hr IV Q24H KENNY Stop: 06/05/24 08:59 Amiodarone HCl/Dextrose (Nexterone Ivpb) 360 mg in 200 mls @ 16.667 mls/hr IV .Q12H KENNY Stop: 05/29/24 18:06 Last Admin: 05/28/24 18:09 Dose: 16.667 mls/hr Documented By: BRAD Heparin Sodium/Dextrose (Heparin In D5w Ivpb) 25,000 unit in 250 mls @ 6.971 mls/hr IV .Q24H KENNY; Protocol Stop: 06/11/24 15:44 Last Admin: 05/28/24 17:41 Dose: 12 units/kg/hr, 6.971 mls/hr Documented By: BRAD Co-signed By: GABE Piperacillin Sod/Tazobactam (Sod 4.5 gm/ Sodium Chloride) 100 mls @ 200 mls/hr IV Q8HR KENNY; Protocol Stop: 06/04/24 21:59 Last Admin: 05/28/24 21:22 Dose: 200 mls/hr Documented By: MANDI Insulin Glargine (Insulin Glargine (Lantus) 5 Unit/0.05 Ml (Per 5 Units)) 15 unit SC BID KENNY Stop: 06/27/24 08:59 Last Admin: 05/28/24 20:23 Dose: Not Given Documented By: SS Non-Admin Reason: Pt not eating, ok to hold per MD Admin: 05/28/24 09:05 Dose: 15 unit Documented By: NQ Co-signed By: RUPERT Insulin Human Lispro (Insulin Lispro (Admelog) 1 Unit/0.01 Ml Unit) 0 unit SC ACHS [facility]; Protocol Stop: 06/27/24 16:59 Last Admin: 05/28/24 20:24 Dose: Not Given Documented By: SS Non-Admin Reason: Pt not eating, ok to hold per MD Admin: 05/28/24 16:48 Dose: Not Given Documented By: KF Non-Admin Reason: Patient Refused Ondansetron HCl (Ondansetron Inj 2 Mg/Ml Inj 2 Ml) 4 mg IV Q6H PRN; Protocol PRN Reason: NAUSEA OR VOMITING Stop: 06/27/24 04:04 Last Admin: 05/28/24 19:21 Dose: 4 mg Documented By: SS Pharmacy Consult (Vancomycin Pharmacy To Dose 1 Each Each) 1 each IV QDAY KENNY Stop: 06/27/24 08:59 Last Admin: 05/28/24 10:49 Dose: Not Given Documented By: NQ Non-Admin Reason: Duplicate Medication on eMAR Pharmacy Consult (Pharmacy Renal Dose Adjustment 1 Ea) 1 each XX PRN PRN PRN Reason: CONSULT Stop: 06/27/24 11:06 Sennosides (Senna Tablet) 1 tab PO QDAY [facility]; Protocol Stop: 06/27/24 08:59 Last Admin: 05/28/24 08:39 Dose: 1 tab Documented By: NQ Discontinued Medications Aspirin (Aspirin Ec 81 Mg Tabec) 81 mg PO QDAY KENNY Stop: 06/27/24 08:59 Last Admin: 05/28/24 10:49 Dose: Not Given Documented By: NQ Non-Admin Reason: hold per Dr Her Aspirin (Aspirin Ec 81 Mg Tabec) 81 mg PO X1 ONE Stop: 05/28/24 15:17 Last Admin: 05/28/24 15:55 Dose: Not Given Documented By: KF Non-Admin Reason: do not give per Dr. Her Bumetanide (Bumetanide Inj 0.25 Mg/Ml Vial 4 Ml) 1 mg IVP BID KENNY Stop: 06/27/24 08:59 Last Admin: 05/28/24 09:30 Dose: 1 mg Documented By: NQ Furosemide (Furosemide Inj 10 Mg/Ml 4ml Vial) 40 mg IVP X1 ONE Stop: 05/28/24 04:06 Last Admin: 05/28/24 04:20 Dose: 40 mg Documented By: CVL Heparin Sodium (Porcine) (Heparin Sod Inj 5000 Unit/Ml Vial) 5,000 unit SC Q12HR KENNY Stop: 06/11/24 08:59 Last Admin: 05/28/24 10:49 Dose: Not Given Documented By: NQ Non-Admin Reason: hold per Dr Her Heparin Sodium (Porcine) (Heparin Sod Inj 5000 Unit/Ml Vial) 5,000 unit SC X1 ONE Stop: 05/28/24 15:16 Last Admin: 05/28/24 15:50 Dose: Not Given Documented By: KF Non-Admin Reason: Discontinued Heparin Sodium (Porcine) (Heparin Sod Inj 5000 Unit/Ml Vial) 3,480 unit IVP X1 ONE Stop: 05/28/24 17:27 Last Admin: 05/28/24 17:40 Dose: 3,480 unit Documented By: KF Co-signed By: GABE Sodium Chloride (Ns) 1,000 mls @ 999 mls/hr IV .Q1H1M ONE Stop: 05/27/24 20:07 Last Infusion: 05/27/24 20:40 Dose: Infused Documented By: Admin: 05/27/24 19:25 Dose: 999 mls/hr Documented By: CVL Sodium Chloride (Ns) 1,000 mls @ 999 mls/hr IV .Q1H1M ONE Stop: 05/27/24 20:07 Last Infusion: 05/27/24 20:40 Dose: Infused Documented By: Admin: 05/27/24 19:25 Dose: 999 mls/hr Documented By: CVL Piperacillin Sod/Tazobactam (Sod 4.5 gm/ Sodium Chloride) 100 mls @ 200 mls/hr IV Q6HR KENNY Stop: 06/04/24 04:23 Last Admin: 05/28/24 13:01 Dose: Not Given Documented By: BRAD Non-Admin Reason: Discontinued Piperacillin Sod/Tazobactam (Sod 2.25 gm/ Sodium Chloride) 100 mls @ 200 mls/hr IV Q6HR [facility] Stop: 06/04/24 05:59 Last Admin: 05/28/24 13:00 Dose: Not Given Documented By: KF Non-Admin Reason: Discontinued Piperacillin Sod/Tazobactam (Sod 2.25 gm/ Sodium Chloride) 100 mls @ 200 mls/hr IV X1 ONE Stop: 05/28/24 05:44 Last Admin: 05/28/24 06:42 Dose: 200 mls/hr Documented By: MARI Piperacillin/Tazobactam/Dextrose (Zosyn) 50 mls @ 12.5 mls/hr IV Q8HR [facility]; Protocol Stop: 06/04/24 05:59 Last Admin: 05/28/24 13:19 Dose: 12.5 mls/hr Documented By: BRAD Amiodarone HCl/Dextrose (Nexterone Ivpb) 150 mg in 100 mls @ 600 mls/hr IV .Q10M ONE Stop: 05/28/24 11:55 Last Admin: 05/28/24 11:52 Dose: 600 mls/hr Documented By: FAY Amiodarone HCl/Dextrose (Nexterone Ivpb) 360 mg in 200 mls @ 33.333 mls/hr IV .Q6H ONE Stop: 05/28/24 17:45 Last Admin: 05/28/24 12:06 Dose: 33.333 mls/hr Documented By: FAY Amiodarone HCl/Dextrose (Nexterone Ivpb) 360 mg in 200 mls @ 16.667 mls/hr IV .Q12H [facility] Stop: 05/29/24 11:45 Last Admin: 05/28/24 13:56 Dose: Not Given Documented By: BRAD Non-Admin Reason: second bag running. Potassium Chloride (Kcl Ivpb) 10 meq in 100 mls @ 100 mls/hr IV Q1H ONE Stop: 05/28/24 16:13 Last Admin: 05/28/24 15:59 Dose: 100 mls/hr Documented By: BRAD Insulin Glargine (Insulin Glargine (Lantus) 5 Unit/0.05 Ml (Per 5 Units)) 10 unit SC X1 ONE Stop: 05/28/24 04:13 Last Admin: 05/28/24 04:23 Dose: 10 unit Documented By: CVL Co-signed By: SE Insulin Human Lispro (Insulin Lispro (Admelog) 1 Unit/0.01 Ml Unit) 0 unit SC ACHS [facility]; Protocol Stop: 06/27/24 07:29 Insulin Human Lispro (Insulin Lispro (Admelog) 1 Unit/0.01 Ml Unit) 0 unit SC Q6HR KENNY; Protocol Stop: 06/27/24 05:59 Last Admin: 05/28/24 07:17 Dose: 8 unit Documented By: CTF Co-signed By: SD Insulin Human Lispro (Insulin Lispro (Admelog) 1 Unit/0.01 Ml Unit) 0 unit SC Q6HR KENNY; Protocol Stop: 06/27/24 05:59 Insulin Human Lispro (Insulin Lispro (Admelog) 1 Unit/0.01 Ml Unit) 0 unit SC Q6HR KENNY; Protocol Stop: 06/27/24 05:59 Last Admin: 05/28/24 11:34 Dose: 10 unit Documented By: NQ Co-signed By: DM Insulin Human Regular (Insulin Hum Regular 1 Unit/0.01 Ml (Per Unit)) 10 unit IV X1 ONE Stop: 05/27/24 20:48 Last Admin: 05/27/24 20:54 Dose: 10 unit Documented By: CVL Co-signed By: DB Insulin Human Regular (Insulin Hum Regular 1 Unit/0.01 Ml (Per Unit)) 10 unit SC X1 ONE Stop: 05/28/24 08:48 Last Admin: 05/28/24 09:02 Dose: 10 unit Documented By: NQ Co-signed By: BA Pantoprazole Sodium (Pantoprazole Inj 40 Mg Vial) 40 mg IVP QDAY [facility] Stop: 06/27/24 08:59 Last Admin: 05/28/24 08:40 Dose: 40 mg Documented By: NQ None Consultations Consultation(s) initiated? (list below): No Diagnosis Differential Diagnosis ED Complaint MDM: Hyperglycemia foot cellulitis JADIEL Most likely diagnosis given after review of the tests above:: Hyperglycemia, foot cellulitis, JADIEL Admission Indicated Admission indicated?: indicated Explain why admission is indicated or not indicated:: Further medical management Admission Request Was there a request for admission?: No Disposition Plan Disposition Plan: Admit Medical Decision Making Differential Diagnosis Differential Diagnosis: Hyperglycemia foot cellulitis JADIEL Lab Data 05/28/24 13:32 05/28/24 13:32 Labs: Lab Results 05/27/24 05/27/24 05/27/24 Range/Units 18:12 19:34 22:36 WBC 18.5 H (3.8-10.6) Thou/mm3 RBC 3.54 L (4.50-5.90) Miln/mm3 Hgb 8.6 L (13.5-16.0) g/dL Hct 27.3 L (41.0-53.0) % MCV 77 L (80-100) fL MCH 24.3 L (25.0-35.0) pg MCHC 31.5 (31.0-37.0) g/dl RDW Std Deviation 50.6 H (35.1-43.9) fL Plt Count 440 D (140-440) Thou/mm3 Neut % (Auto) 87 H (37-80) % Lymph % (Auto) 5 L (10-50) % [place] % (Auto) 3 (0-12) % Eos % (Auto) 1 (0-10) % Baso % (Auto) 0 (0-2.5) % Neut # (Auto) 16.2 H (1.8-7.7) Thou/mm3 Lymph # (Auto) 0.9 L (1.0-4.8) Thou/mm3 [place] # (Auto) 0.6 (0.0-0.8) Thou/mm3 Eos # (Auto) 0.2 (0.0-0.5) Thou/mm3 Baso # (Auto) 0.0 (0.0-0.2) Thou/mm3 Immature Gran # (Auto) 0.56 H (0.00-0.00) Thou/mm3 Absolute Nucleated RBC 0.06 H (0.00-0.00) Thou/mm3 Immature Gran % 3 H (0-0) % Nucleated RBC % 0 (0) /100 WBC Sodium 125 L 132 L (136-145) mMol/L Potassium 5.4 H 3.9 D (3.4-5.1) mMol/L Chloride 91 L 97 L (98-107) mMol/L Carbon Dioxide 21.0 20.9 (20.0-31.0) mMol/L Anion Gap 13 14 (7-16) BUN 75 H 77 H (9-23) mg/dL Creatinine 2.5 H 2.2 H (0.6-1.3) mg/dL Estim Creat Clear Calc Not Performed. Not Performed. eGFR 28 L 32 L (60 - ) See Note BUN/Creatinine Ratio 30 H 35 H (12-20) Ratio Glucose 638 H* 487 H* D (74-106) mg/dL Calculated Osmolality 303 H 309 H (275-295) Calcium 9.0 8.3 (8.3-10.6) mg/dL Corrected Calcium 9.3 9.1 (8.5-10.1) mg/dL Total Bilirubin 0.6 0.4 (0.3-1.2) mg/dL AST 18 14 (0-34) U/L ALT < 7 L < 7 L (10-49) U/L Alkaline Phosphatase 111 98 (46-116) U/L B-Natriuretic Peptide > 3280 H* (0-100) pg/mL Total Protein 7.8 6.6 (5.7-8.2) gm/dL Albumin 3.6 3.0 L D (3.4-4.8) gm/dL Globulin 4.2 H 3.6 H (2.3-3.5) gm/dL Albumin/Globulin Ratio 0.9 L 0.8 L (1.2-2.2) Beta-Hydroxybutyrate/Acetoacetate 1.7 H (<0.6) mmol/L Discharge Plan Plan Patient Disposition: Admit Acute Care w/in Hospital Problem List Clinical Impression: Cellulitis, Hyperglycemia due to diabetes mellitus, JADIEL (acute kidney injury)
--- NOTE | 2024-05-27 19:32 | PC.NURSE ---
pt transferred from [facility] to re bed. pt cleaned up, new brief in place, gown on, vitals and ekg taken.
[2024-05-27 20:09] LABS: Alanine Aminotransferase < 7 U/L (10-49); Albumin, Serum 3.6 gm/dL (3.4-4.8); Albumin/Globulin Ratio 0.9 (1.2-2.2); Alkaline Phosphatase 111 U/L (46-116); Anion Gap 13 (7-16); Aspartate Amino Transferase 18 U/L (0-34); BUN/Creatinine Ratio 30 Ratio (12-20); Bilirubin,Total 0.6 mg/dL (0.3-1.2); Blood Urea Nitrogen 75 mg/dL (9-23); Calcium (Corrected) 9.3 mg/dL (8.5-10.1); Chloride 91 mMol/L (98-107); Creatinine (Component) 2.5 mg/dL (0.6-1.3); Globulin 4.2 gm/dL (2.3-3.5); Potassium 5.4 mMol/L (3.4-5.1); Sodium 125 mMol/L (136-145); Total Protein 7.8 gm/dL (5.7-8.2); eGFR 28 See Note
[2024-05-27 20:17] LABS: Osmolality,Calculated 303 (275-295)
[2024-05-27 20:18] LABS: Glucose 638 mg/dL (74-106)
[2024-05-27] MEDS: INSULIN HUM REGULAR 1 UNIT/0.01 ML (PER UNIT) 10 UNIT IV (20:54)
[2024-05-27 20:59] VITALS: BP 107/67; PULSE 89; RESP 16
--- NOTE | 2024-05-27 21:00 | PC.NURSE ---
PT CAME TO ER FROM HOME VIA AMBULANCE FOR C/O SOB, NO C/O PAIN, NO COUGHING, NOT ON RESPIRATORY DISTRESS.
--- NOTE | 2024-05-27 22:55 | PD.EDADDENDU ---
Emergency Room Addendum <Annette Kennedy MD - Last Filed: 05/28/24 05:11> Addendum Narrative: 2300: Care assumed from Erik Oglesby NP. Past medical, surgical, social and family history reviewed. Vitals and home medications reviewed. Results and treatment plan discussed. I will assume the care of the patient at this time and will follow the patient, pending final disposition. 0038: Bedside blood glucose is 408. 0141: Patient re-examined by me. Patient reports concerns regarding his right foot. I reviewed his foot x-ray from 04/28/24 which showed osteomyelitis involving the amputated ends first and second metatarsals. I will order a repeat x-ray to assess if the osteomyelitis has worsened. 0335: Medicine Resident made aware of the patient?s HPI, PMHx, lab and/or radiology results. Possible admit for hyperglycemia worsening right foot osteomyelitis/ hyperglycemia 0400: Patient is accepted for admission <Angelo Freitas - Last Filed: 05/28/24 04:56> Addendum Narrative: 2300: Care assumed from Erik Oglesby NP. Past medical, surgical, social and family history reviewed. Vitals and home medications reviewed. Results and treatment plan discussed. I will assume the care of the patient at this time and will follow the patient, pending final disposition. 0038: Bedside blood glucose is 408. 0141: Patient re-examined by me. Patient reports concerns regarding his right foot. I reviewed his foot x-ray from 04/28/24 which showed osteomyelitis involving the amputated ends first and second metatarsals. I will order a repeat x-ray to assess if the osteomyelitis has worsened. 0335: Dr. Navarrete made aware of the patient?s HPI, PMHx, lab and/or radiology results. Possible admit for hyperglycemia worsening right foot osteomyelitis 0400: Patient is accepted for admission MD Attestation <Angelo Freitas - Last Filed: 05/28/24 04:56> Attestation ? Scribe Attestation: Tatyana, Jhoana Freitas, am scribing for and in the presence of Dr. De La Cruz. Provider Notation: Although this document has been carefully reviewed, there may still be some phonetic and other typographical errors. These errors are purely grammatical due to imperfections in the software program and should not be construed in any way to compromise the substance of the patient's medical care during this visit.
[2024-05-27 23:22] LABS: Alanine Aminotransferase < 7 U/L (10-49); Albumin/Globulin Ratio 0.8 (1.2-2.2); Alkaline Phosphatase 98 U/L (46-116); Anion Gap 14 (7-16); Aspartate Amino Transferase 14 U/L (0-34); BUN/Creatinine Ratio 35 Ratio (12-20); Bilirubin,Total 0.4 mg/dL (0.3-1.2); Blood Urea Nitrogen 77 mg/dL (9-23); Calcium 8.3 mg/dL (8.3-10.6); Calcium (Corrected) 9.1 mg/dL (8.5-10.1); Carbon Dioxide 20.9 mMol/L (20.0-31.0); Chloride 97 mMol/L (98-107); Creatinine (Component) 2.2 mg/dL (0.6-1.3); Globulin 3.6 gm/dL (2.3-3.5); Osmolality,Calculated 309 (275-295); Potassium 3.9 mMol/L (3.4-5.1); Sodium 132 mMol/L (136-145); Total Protein 6.6 gm/dL (5.7-8.2); eGFR 32 See Note
[2024-05-27 23:24] LABS: Glucose 487 mg/dL (74-106)
[2024-05-28] VITALS (21 sets, daily range): BP systolic 87–127; BP diastolic 62–83; PULSE 70–180; RESP 16–98; TEMP 36.1–36.4; O2SAT 94–100
--- NOTE | 2024-05-28 01:46 | XR_ITS ---
Examination: Foot, right, 3 views Technique: AP, oblique, lateral views foot, 3 views Date and time of exam: May 28, 2024 0153 hrs. Comparison April 28, 2024 Indications: Redness swelling and pain discharge right foot this week Findings: Cortical bone destruction amputated ends first and second metatarsals Soft tissue vascular calcification Air in the soft tissue both medial lateral and anterior foot No fracture Impression: Osteomyelitis amputated distal first and second metatarsals, MRI foot without contrast follow-up would best assess full extent of osteomyelitis as well as soft tissue abscess
[2024-05-28 02:58] LABS: B-Type Natriuretic Peptide > 3280 pg/mL (0-100)
[2024-05-28] MEDS: FUROSEMIDE INJ 10 MG/ML 4ML VIAL 40 MG IVP (04:20)
[2024-05-28] MEDS: INSULIN GLARGINE (Lantus) 5 UNIT/0.05 ML (PER 5 UNITS) 10 UNIT SC (04:23)
--- NOTE | 2024-05-28 04:30 | ESHP_ITS ---
Documentation for date of: 05/28/24 [facility] History of Present Illness Chief complaint: Shortness of breath History of present illness: 63-year-old male with past medical history of CAD, status post PCI with LAD stents, essential hypertension, hyperlipidemia, CKD stage IIIb, insulin- dependent type 2 diabetes (last A1c 9.0), HFrEF (EF 30 to 35%), osteomyelitis with past surgeries and amputations (left BKA, right hand 3rd-5th finger) secondary to diabetic foot ulcer presenting to the ED on 05/28 with shortness of breath requiring starting home oxygen. History taken alongside patient's who is bedside. Per patient, he started developing increased weakness and shortness of breath within the past few days and has progressively started to feel more debilitated than usual. Of note, patient was discharged a month ago from the ED for UTI requiring oral antibiotics. Patient also follows up with wound care and zipper setter chainstitch (Dr. Henson) in [place] for osteomyelitis of the right foot and has bandages changed regularly. Per , the wound has been draining some yellow pus lately even with the patient being on oral antibiotics. Patient was recently started on a regiment of clindamycin along with megestrol for poor p.o. intake. Patient's states that he has not been eating well lately and as a result has not been taking his medication and insulin; moreover, patient apparently has dysphagia to both solids and liquids and is not able to swallow properly along with some regurgitation. Patient follows up with Dr. Velazquez outpatient and apparently had an appointment last month. Patient otherwise denies any concerning symptoms such as fever/chills, weight loss, nausea/vomiting/diarrhea, abdominal pain, melena, hematochezia, dysuria or hematuria. Medical history: As above Surgical history: Left heart catheterization, amputations as noted above Allergies: NKDA Medications: Patient apparently takes 15 units of insulin at bedtime (states that this can fluctuate at times?), also takes metformin 1000 mg p.o. twice daily, Bumex 1 mg p.o. twice daily, aspirin 81 mg p.o. daily, rosuvastatin 20 mg p.o. daily, Flomax 0.4 mg p.o. daily, gabapentin 300 mg p.o. daily Family history: Noncontributory Social history: Patient lives in [place] with his , denies tobacco, alcohol or illicit drug use ROS: All 12 systems assessed and the patient denies unless otherwise stated in HPI. In the ED, patient presented normotensive, regular heart rate, respiratory rate 18, afebrile satting 99 initially but then requiring 2 to 3 L of nasal cannula oxygenation. Fingerstick blood glucose initially was in the 600 but upon being given 10 units of regular insulin has been downtrending to 342. Pertinent lab findings include WBC 18.5, hemoglobin 8.6 (MCV 77), platelet count 440, sodium 125, potassium 5.4, creatinine 2.5, BUN 77 and BNP > 3280. Foot x-ray shows no marked difference deviation from past imaging, EKG does not show any concerning ST changes and chest x-ray shows perihilar edema along with bilateral pneumonia pattern. Patient will be admitted for workup of new dysphagia-like symptoms, likely CHF exacerbation and possible underlying infectious process (pneumonia versus osteomyelitis) and glycemic control. Exam Vital Signs Temp Pulse Resp BP Pulse Ox O2 Del Method O2 Flow Rate 97.5 F 94 16 101/62 100 Room Air 2 05/28/24 00:25 05/28/24 04:20 05/28/24 04:04 05/28/24 04:20 05/28/24 04:04 05/28/24 04:04 05/28/24 01:56 Narrative Exam Physical Exam: GENERAL: Awake but appears tired/somnolent, answering questions appropriately, a ppears older than stated age HEENT: NC/AT. Moist mucosa. PERRLA/EOMI. CARDIO: Heart RRR, no obvious murmurs, no JVD. PULM: On 2 L nasal cannula. No coughing but appears visibly SOB with shallow breathing. Lungs CTA B/L. No crackles, wheezes, or rhonchi auscultated GI: Abdomen soft, NT/ND, +BS. SKIN/MSK/EXT: Patient has amputations, left BKA and right hand 3rd-5th phalanges,right foot bandaged. No wounds/discoloration/rashes/edema. 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 No focal neurologic deficit Results: Labs 05/28/24 04:47 05/27/24 22:36 Labs: Short CBC 05/27/24 Range/Units 18:12 WBC 18.5 H (3.8-10.6) Thou/mm3 Hgb 8.6 L (13.5-16.0) g/dL Hct 27.3 L (41.0-53.0) % Plt Count 440 D (140-440) Thou/mm3 BMP 05/27/24 05/27/24 19:34 22:36 Sodium 125 L 132 L Potassium 5.4 H 3.9 D Chloride 91 L 97 L Carbon Dioxide 21.0 20.9 BUN 75 H 77 H Creatinine 2.5 H 2.2 H Glucose 638 H* 487 H* D Calcium 9.0 8.3 Liver Function 05/27/24 05/27/24 Range/Units 19:34 22:36 Total Bilirubin 0.6 0.4 (0.3-1.2) mg/dL AST 18 14 (0-34) U/L ALT < 7 L < 7 L (10-49) U/L Alkaline Phosphatase 111 98 (46-116) U/L Albumin 3.6 3.0 L D (3.4-4.8) gm/dL Quality Measures Quality Measures VTE prophylaxis Advance care planning discussed with:: patient Medications Home Medications and Allergies Home Medications ?Medication ?Instructions ?Recorded ?Confirmed ?Type insulin glargine 100 unit/mL (3 35 unit subcut BID 06/24/20 05/28/24 History mL) subcutaneous pen (Lantus Solostar U-100 Insulin) metformin 1,000 mg tablet 1,000 mg PO BID 06/24/20 05/28/24 History aspirin 81 mg tablet,delayed 81 mg PO QDAY 03/23/22 05/28/24 History release gabapentin 300 mg capsule 300 mg PO QDAY 01/01/24 05/28/24 History rosuvastatin 20 mg tablet 20 mg PO QDAY 01/01/24 05/28/24 History tamsulosin 0.4 mg capsule (Flomax) 0.4 mg PO DAILY 01/01/24 05/28/24 History bumetanide 1 mg tablet 1 mg PO BID 01/19/24 05/28/24 History Allergies Allergy/AdvReac Type Severity Reaction Status Date / Time No Known Allergies Allergy Verified 05/28/24 05:31 Visit Medications Acetaminophen (Acetaminophen 325 Mg Tablet) 650 mg PO Q6H PRN PRN Reason: Pain 1-3 and/or Fever >100.1 Stop: 06/27/24 04:04 Dextrose (Dextrose 50%-Water Inj 50 Ml Syringe) 25 ml IV Q15MIN PRN PRN Reason: BG 50-70 responsive npo pt Stop: 06/27/24 04:11 Dextrose (Dextrose 50%-Water Inj 50 Ml Syringe) 50 ml IV Q15MIN PRN PRN Reason: BG <50 OR BG <70 & pt unresponsive Stop: 06/27/24 04:11 Glucagon (Glucagon Inj 1 Mg Vial) 1 mg IM Q15MIN PRN PRN Reason: BG <70, and no IV access Heparin Sodium (Porcine) (Heparin Sod Inj 5000 Unit/Ml Vial) 5,000 unit SC Q12HR KENNY Stop: 06/11/24 08:59 Piperacillin Sod/Tazobactam (Sod 2.25 gm/ Sodium Chloride) 100 mls @ 200 mls/hr IV Q6HR PENDING SALE TO [facility] Stop: 06/04/24 05:59 Insulin Human Lispro (Insulin Lispro (Admelog) 1 Unit/0.01 Ml Unit) 0 unit SC Q6HR KENNY; Protocol Stop: 06/27/24 05:59 Ondansetron HCl (Ondansetron Inj 2 Mg/Ml Inj 2 Ml) 4 mg IV Q6H PRN; Protocol PRN Reason: NAUSEA OR VOMITING Stop: 06/27/24 04:04 Pantoprazole Sodium (Pantoprazole Inj 40 Mg Vial) 40 mg IVP QDAY KENNY Stop: 06/27/24 08:59 Sennosides (Senna Tablet) 1 tab PO QDAY KENNY; Protocol Stop: 06/27/24 08:59 Discontinued Medications Furosemide (Furosemide Inj 10 Mg/Ml 4ml Vial) 40 mg IVP X1 ONE Stop: 05/28/24 04:06 Last Admin: 05/28/24 04:20 Dose: 40 mg Sodium Chloride (Ns) 1,000 mls @ 999 mls/hr IV .Q1H1M ONE Stop: 05/27/24 20:07 Last Infusion: 05/27/24 20:40 Dose: Infused Sodium Chloride (Ns) 1,000 mls @ 999 mls/hr IV .Q1H1M ONE Stop: 05/27/24 20:07 Last Infusion: 05/27/24 20:40 Dose: Infused Piperacillin Sod/Tazobactam (Sod 4.5 gm/ Sodium Chloride) 100 mls @ 200 mls/hr IV Q6HR EKNNY Stop: 06/04/24 04:23 Insulin Glargine (Insulin Glargine (Lantus) 5 Unit/0.05 Ml (Per 5 Units)) 10 unit SC X1 ONE Stop: 05/28/24 04:13 Last Admin: 05/28/24 04:23 Dose: 10 unit Insulin Human Lispro (Insulin Lispro (Admelog) 1 Unit/0.01 Ml Unit) 0 unit SC ACHS PENDING SALE TO [facility]; Protocol Stop: 06/27/24 07:29 Insulin Human Regular (Insulin Hum Regular 1 Unit/0.01 Ml (Per Unit)) 10 unit IV X1 ONE Stop: 05/27/24 20:48 Last Admin: 05/27/24 20:54 Dose: 10 unit Assessment & Plan Plan 63-year-old male with past medical history of CAD, status post PCI with LAD stents, essential hypertension, hyperlipidemia, CKD stage IIIb, insulin- dependent type 2 diabetes (last A1c 9.0), HFrEF (EF 30 to 35%), osteomyelitis with past surgeries and amputations (left BKA, right hand 3rd-5th finger) secondary to diabetic foot ulcer presenting with shortness of breath requiring starting home oxygen will be admitted for workup of new dysphagia-like symptoms, likely CHF exacerbation and possible underlying infectious process (pneumonia versus osteomyelitis) and glycemic control. #Acute on chronic HFrEF exacerbation (EF 30 to 35%) #Acute hypoxic/hypercapnic respiratory failure #History of coronary artery disease s/p stent placement Patient has extensive past medical history of cardiac disease; heart failure along with CAD and follows Dr. Velazquez, cardiology, outpatient Apparently last visit was about a month ago and apparently his heart failure is about the same has not improved or worsened Echo from 01/2024 shows: Mildly dilated LV. Normal wall thickness. Estimated EF 30-35 %. Global LV systolic function is severely decreased. RV not well visualized. [id number]-et-[id number] MR. Patient has apparently not taking his medications as prescribed; he is on Bumex 1 mg p.o. BID Does not seem to be volume overloaded on exam; however, BNP is severely elevated and chest x-ray does show perihilar edema Patient does require nasal cannula oxygen supplementation which is something that he does not usually require Was given 2 L in the ED Plan: IV Lasix 40 ordered x 1 Strict I's and O's Daily weight Oxygen supplementation as needed Fluid restriction 1500 mL daily #New dysphagia #Poor p.o. intake Patient has been having poor p.o. intake for the past several days Per , patient has dysphagia to both solid and liquid which is a new symptom Apparently, the patient gargles and has some remnant after eating or drinking fluids Plan: N.p.o. pending nurse swallow screen Speech eval ordered Will consider GI consultation if the patient fails speech eval #JADIEL on CKD stage IIIb #Prerenal Azotemia #Hyponatremia CKD stage IIIb likely secondary to poor glycemic control and diabetic nephropathy Currently presenting with increased from baseline creatinine Current creatinine downtrending from 2.5-2.2 upon being given 2 L of IV fluids in the ED BUN/creatinine ratio greater than 20 (around 30) likely prerenal versus postrenal less likely as the patient denies any dysuria Prerenal azotemia likely secondary to poor p.o. intake/dehydration versus CHF exacerbation and vascular congestion Plan: Diuresed to treat CHF exacerbation Renally dose medication Avoid nephrotoxic agents Monitor sodium correction, Fluid restriction as above #Insulin-dependent type 2 diabetes #Hyperglycemia Patient's last A1c 9.0; patient diagnosed about 20 years ago has extensive family history of diabetes Apparently the patient takes about 15 units at night; however, has not been taking his medications regularly due to poor p.o. intake as stated above Presented to the ED with severely elevated glucose and mildly elevated beta hydroxybutyrate Was given 10 units regular insulin with steady improvement in blood sugar readings Plan: Started Lantus 10 units x 1 Sliding scale insulin every 6 hours Repeat A1c ordered #Osteomyelitis of the right foot Patient has extensive past medical history of amputation secondary to diabetic foot ulcer Right foot is bandaged and apparently followed by blood bank specialist weekly along with the zipper setter chainstitch Dr. Henson Per family, patient has been on several oral antibiotics in the past month but still has some oozing and purulent in the area Patient is always in pain secondary to the foot Does have elevated WBC as noted Plan: MRI of the right foot ordered Will start the patient on IV Zosyn (renally dosed) Wound culture ordered Wound care referral General Surgery, Dr. Rudolph, has been consulted appreciate recommendations #Possible superimposed pneumonia? #Leukocytosis Patient presenting with acute shortness of breath requiring home oxygen use Patient has been on oral antibiotics for the past several weeks Patient currently in the ED on 2 to 3 L nasal cannula which is not usual for him Chest x-ray does show bilateral pneumonia versus vascular congestion Patient does have elevated WBC Plan: Started patient on broad-spectrum IV antibiotic, Zosyn (renally dosed) Follow-up on blood cultures Monitor with morning labs Monitor for response to treatment #Microcytic anemia Patient has had anemia since being admitted sometime in January Hemoglobin has consistently been below 10 since that time with no improvement Iron panel and ferritin from the past anemia of chronic disease versus less likely iron deficiency anemia Differentials include: As stated above along with sideroblastic anemia, lead poisoning Patient is not on any iron supplementation Plan: Follow-up outpatient and referred to ammonia box operator Patient could benefit from blood smear workup Hospital Management: Lines: PIV Diet: N.p.o., pending swallow eval Bowel: Senna GI prophylaxis: Protonix DVT prophylaxis: Heparin subcu Dispo: Weaning off oxygen, glycemic control, workup for underlying infectious process (pneumonia versus osteomyelitis), general surgery and wound care consulted for osteomyelitis management Code: Full Patient seen and assessed with attending Dr. Garcia and senior resident Dr. Demetris Obregon, PGY-1 Attending Provider Attestation/Addendum I discussed with and supervised the resident physician who took care of this patient. I agree with the assessment and plan as above. 63-year-old male patient with diabetes, history of foot ulcers, left BKA, systolic congestive heart failure, coronary artery disease with stents. He also has chronic kidney disease. He was admitted for worsening shortness of breath and dysphagia. He was given supplemental oxygen for hypoxia. The patient has seen Dr. Poncho Velazquez his adolescent specialist. He was taking diuretic medications at home. He saw Dr. Rob Velazquez about 4 months ago. The patient was seen in room 361. Currently the patient is not in severe distress. He has leucocytosis, MRSA screen added. Monitor potassium level. He was started on IV antibiotic treatment.
[2024-05-28 05:33] LABS: Basophils % (Auto) 0 % (0-2.5); Eosinophils # (Auto) 0.3 Thou/mm3 (0.0-0.5); Eosinophils % (Auto) 2 % (0-10); Hematocrit 26.1 % (41.0-53.0); Immature Granulocytes % (Auto) 2 % (0-0); Immature Granulocytes Auto 0.45 Thou/mm3 (0.00-0.00); Lymphocytes # (Auto) 0.8 Thou/mm3 (1.0-4.8); Lymphocytes % (Auto) 4 % (10-50); Mean Corpuscular Hemoglobin 24.6 pg (25.0-35.0); Mean Corpuscular Volume 79 fL (80-100); Monocytes # (Auto) 0.9 Thou/mm3 (0.0-0.8); Monocytes % (Auto) 4 % (0-12); Neutrophils # (Auto) 18.2 Thou/mm3 (1.8-7.7); Neutrophils % (Auto) 88 % (37-80); Nucleated Red Blood Cell # 0.11 Thou/mm3 (0.00-0.00); Nucleated Red Blood Cell % 1 /100 WBC (0); Platelet Count 445 Thou/mm3 (140-440); RDW Standard Deviation 51.2 fL (35.1-43.9); Red Blood Count 3.29 Miln/mm3 (4.50-5.90)
[2024-05-28 05:35] LABS: Hemoglobin 8.1 g/dL (13.5-16.0); White Blood Count 20.7 Thou/mm3 (3.8-10.6)
[2024-05-28 05:51] LABS: Glucose Estimated Average 246 mg/dL (80-131); Hemoglobin A1C 10.2 % Hgb (4.8-6.0)
--- NOTE | 2024-05-28 06:00 | PC.NURSE ---
at bedside. Per , pt has wheelchair and walker at home but not using since pt has been bedrest and poor appetite for about 2 weeks now. Pt has O2 machine at home prn.
[2024-05-28 06:32] LABS: Alanine Aminotransferase < 7 U/L (10-49); Albumin, Serum 3.2 gm/dL (3.4-4.8); Albumin/Globulin Ratio 0.9 (1.2-2.2); Alkaline Phosphatase 101 U/L (46-116); Anion Gap 11 (7-16); Aspartate Amino Transferase < 8 U/L (0-34); BUN/Creatinine Ratio 38 Ratio (12-20); Bilirubin,Total 0.5 mg/dL (0.3-1.2); Blood Urea Nitrogen 87 mg/dL (9-23); Calcium 8.1 mg/dL (8.3-10.6); Calcium (Corrected) 8.7 mg/dL (8.5-10.1); Carbon Dioxide 22.9 mMol/L (20.0-31.0); Chloride 96 mMol/L (98-107); Creatinine (Component) 2.3 mg/dL (0.6-1.3); Estimated Creatinine Clearance 26.3 mL/min (>60); Globulin 3.6 gm/dL (2.3-3.5); Magnesium 2.4 mg/dL (1.6-2.6); Osmolality,Calculated 305 (275-295); Phosphorous 4.5 mg/dL (2.4-5.1); Sodium 130 mMol/L (136-145); Total Protein 6.8 gm/dL (5.7-8.2); eGFR 31 See Note
[2024-05-28 06:39] LABS: Glucose 422 mg/dL (74-106)
[2024-05-28] MEDS: SODIUM CHLORIDE 0.9% IV (06:42)
[2024-05-28] MEDS: PIPER IV (06:42)
[2024-05-28] MEDS: TAZO IV (06:42)
[2024-05-28] MEDS: INSULIN LISPRO (AdmeLOG) 1 UNIT/0.01 ML UNIT SC ×2 (07:17→11:34)
[2024-05-28] MEDS: SENNA TABLET 1 TAB PO (08:39)
[2024-05-28] MEDS: PANTOPRAZOLE INJ 40 MG VIAL IVP (08:40)
[2024-05-28] MEDS: INSULIN HUM REGULAR 1 UNIT/0.01 ML (PER UNIT) 10 UNIT SC (09:02)
[2024-05-28] MEDS: INSULIN GLARGINE (Lantus) 5 UNIT/0.05 ML (PER 5 UNITS) 15 UNIT SC (09:05)
[2024-05-28 09:12] LABS: C-Reactive Protein 17.5 mg/dL (0.0-0.9); Sed Rate (ESR) 103 mm/hr (0-20)
[2024-05-28] MEDS: BUMETANIDE INJ 0.25 MG/ML VIAL 4 ML 1 MG IVP ×2 (09:30→21:29)
--- NOTE | 2024-05-28 10:00 | PCS.ST ---
Swallow Evaluation completed early this AM. Mild pharyngeal dysphagia. Recommend soft diet/reg liquids with strict precautions once pt is cleared for PO. Pending possible surgery.
--- NOTE | 2024-05-28 11:22 | EKG_ITS ---
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
--- NOTE | 2024-05-28 11:23 | PC.NURSE ---
Informed Dr Her of pt frequent pvc, per doctor he will order EKG
--- NOTE | 2024-05-28 11:44 | EKG_ITS ---
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: GALLO : 1960 Requested By: Hermilo Roberts Order Number: [id number] Tres MD: Hermilo Roberts Measurements Intervals [place] Rate: 125 P: SC: QRS: 255 QRSD: 144 T: 89 QT: 277 QTc: 399 Interpretive Statements ATRIAL FIBRILLATION WITH RAPID VENTRICULAR RESPONSE MARKED RIGHT AXIS DEVIATION [QRS AXIS > 100] RIGHT BUNDLE BRANCH BLOCK [120+ ms QRS DURATION, UPRIGHT V1, 40+ ms S IN I/aVL/V4/V5/V6] ANTEROSEPTAL MYOCARDIAL INFARCTION , OF INDETERMINATE AGE [40+ ms Q WAVE IN V1-V4] Compared to ECG 05/28/2024 11:29:02 Right-axis deviation now present Right bundle-branch block now present Myocardial infarct finding now present Sinus tachycardia no longer present Ventricular premature complex(es) no longer present ST (T wave) deviation no longer present /store/S0/[id number]/ecg/[id number].pdf
[2024-05-28] MEDS: AMIODARONE 150 MG IVPB 150 MG/100 ML BAG 600 MG IV (11:52)
[2024-05-28] MEDS: AMIODARONE 360 MG IVPB 360 MG/200 ML BAG 33.333 MG IV (12:06)
--- NOTE | 2024-05-28 12:27 | PC.NURSE ---
CALLED RR AT 1139 PT WAS IN [place] UP TO 188. DOCTORS TEAM B ARRIVED EKG ORDERED PADS APPLIED AMIO DRIP STARTED.PT TRANSFERRED TO TELE, REPORT CALLED TO MINAL NELSON
--- NOTE | 2024-05-28 13:17 | PC.NURSE ---
Andrés from lab called to RN to notify Labs that are suspicious for inaccuracy. Two lab values provided to RN were Glucose [address] beck blood glucose performed and resulted at 243. Dr. Moreno aware and orders for CMP to be redrawn. Andrés in lab aware.
[2024-05-28] MEDS: PIPER/TAZO 3.375 GM 50 ML IV (13:19)
--- NOTE | 2024-05-28 13:40 | ECHO_ITS ---
Transthoracic Echo Report Ht (in): 67 Wt (lb): 128 Exam Location: Portable Status: Inpatient Electric Needle Specialist: Maureen Church Indications: Procedure Performed: BP: 114 / 74 HR: 75 Technical Quality: Fair MEASUREMENTS (Male / Female) Normal Values 2D ECHO LV Diastolic Diameter PLAX 5.5 cm 4.2 - 5.9 / 3.9 - 5.3 cm LV Systolic Diameter PLAX 5.3 cm IVS Diastolic Thickness 0.9 cm 0.6 - 1.0 / 0.6 - 0.9 cm LVPW Diastolic Thickness 0.8 cm 0.6 - 1.0 / 0.6 - 0.9 cm LV Relative Wall Thickness 0.3 LVOT Diameter 1.9 cm LA Volume Index 42.3 cm?/m? 16 - 28 cm?/m? Ascending Aorta Diameter 3.0 cm M-MODE Aortic Root Diameter MM 3.0 cm LA Systolic Diameter MM 4.4 cm LA Ao Ratio MM 1.5 AV Cusp Separation MM 1.7 cm DOPPLER AV Peak Velocity 106.0 cm/s AV Peak Gradient 4.5 mmHg AV Mean Gradient 3.0 mmHg AV Velocity Time Integral 16.9 cm LVOT Peak Velocity 51.0 cm/s LVOT Peak Gradient 1.0 mmHg LVOT Velocity Time Integral 8.4 cm LVOT Cardiac Index 1086.6 cm?/min?m? AV Area Cont Eq vti 1.4 cm? AV Area Cont Eq pk 1.4 cm? MV Peak Velocity 83.2 cm/s MV Peak Gradient 2.8 mmHg MV Mean Velocity 48.5 cm/s MV Mean Gradient 1.0 mmHg MV Area PHT 5.8 cm? MR Peak Velocity 340.0 cm/s MR Peak Gradient 46.2 mmHg Mitral E Point Velocity 67.9 cm/s Mitral A Point Velocity 14.1 cm/s Mitral E to A Ratio 4.8 LV E' Lateral Velocity 6.1 cm/s Mitral E to LV E' Lateral Ratio 11.1 LV E' Septal Velocity 3.7 cm/s Mitral E to LV E' Septal Ratio 18.4 TR Peak Velocity 270.3 cm/s TR Peak Gradient 29.2 mmHg FINDINGS Left Ventricle Normal left ventricular size, wall thickness. Severe systolic dysfunction. Severe global hypokinesis . Akinesis apex apical septal and lateral. The ejection fraction is visually estimated at 10-15 %. Right Ventricle The right ventricle is normal in size. Moderate systolic dysfunction. The estimated right ventricula r systolic pressure, 55 mmHg. RAP 15. Left Atrium The left atrium is normal mildly dilated. Right Atrium The right atrium is normal by two-dimensional imaging, color flow and Doppler imaging with no struct ural abnormalities, no thrombus formation present. Atrial Septum The interatrial septum appears normal with no evidence of a shunt. Aorta The aorta is normal by two-dimensional, color flow and Doppler interrogation. Mitral Valve The mitral valve is normal by two-dimensional, color flow and Doppler interrogation. There is modera te mitral valve regurgitation. Aortic Valve The aortic valve is trileaflet and normal by two-dimensional, color flow and Doppler interrogation. There is mild aortic valve regurgitation. Tricuspid Valve The tricuspid valve is normal by two-dimensional, color flow and Doppler interrogation. There is mil d tricuspid valve regurgitation. Pulmonic Valve There is mild pulmonic valve regurgitation. Vessels The pulmonary artery appears normal. The inferior vena cava pulmonary and hepatic veins are mildly dilated. Pericardium The pericardium is normal by two-dimensional imaging. There is no significant pericardial effusion. CONCLUSIONS Indication:CHF Mildy dilated LV size. Severe systolic dysfunction. Estimated EF 10-15% Grade III DD with Akinetic apex along with severe global hypokensis. Normal RV size. Modeate RV systolic dysfunction. Estiamted RVSP 50mmHg. Atleast moderate PAH Modeate MR. Mild to moderate TR, Mild AI and PI. Mild biatrial dilation with IVC mildly dilated. Overall picture of dilated cardiomyopathy Chaz Fajardo (Electronically Signed) Final Date: 28 May 2024 19:24
--- NOTE | 2024-05-28 13:43 | PD.RESEVENT ---
Documentation for date of: 05/28/24 Event Note Event Note: Rapid response was called at 1140 for ventricular tachycardia, HR in the 150s. Patient denied chest pain or shortness of breath. BP was 95/60 and similar on repeat. BS 248. HR decreased to 89. He was laying in bed when the event started. EKG showed Afib with RVR. Pads were placed and Cardiology(Dr. Fajardo) was consulted. Patient was started on Amiodarone drip. Labs were drawn. Morning labs showed NA 130 K 4 Mg 2.4 and Phosphorus of 4.5. Patient had received 10 units of regular insulin, 8 units of lispro, and 15 units of glargine that morning. He had also received protonix and senna. Otherwise no other meds. Patient was alert and oriented. No complaints. The patient's plan was discussed with attending Dr. Moreno and senior residents Dr. Montanez and Dr. Ella Johns, PGY1 Internal Medicine
--- NOTE | 2024-05-28 13:45 | PCS.ST ---
SS met with pt who is requesting SS to speak with his about his d/c plan. Pt is alert/oriented. Pt was admitted for Shortness of Breath. Pt resides with . states pt is bedbound and requires assistance with ADLs. Pt uses a wheelchair at home. SS spoke to about pt applying for Medical and explained pt refuses. Pt utilizes [facility] on [address]. SS provided with d/c options for d/c to home or SNF. 's choice is for pt to go to SNF. explained after 3 weeks she will be unable to care for pt if he is unable to transfer self into wheelchair and requires more assistance. states pt followed up with PCP in March,. is patient's medical decision maker if he is unable. D/C Plan: SNF Next of Kin: Shreya Galdamez PCP: Jalil Le Address: Correct on facesheet
[2024-05-28 13:49] LABS: Basophils % (Auto) 0 % (0-2.5); Eosinophils # (Auto) 0.2 Thou/mm3 (0.0-0.5); Eosinophils % (Auto) 1 % (0-10); Hematocrit 28.7 % (41.0-53.0); Immature Granulocytes % (Auto) 2 % (0-0); Immature Granulocytes Auto 0.46 Thou/mm3 (0.00-0.00); Lymphocytes # (Auto) 0.9 Thou/mm3 (1.0-4.8); Lymphocytes % (Auto) 5 % (10-50); Mean Corpuscular HGB Conc 30.3 g/dl (31.0-37.0); Mean Corpuscular Hemoglobin 24.1 pg (25.0-35.0); Mean Corpuscular Volume 80 fL (80-100); Monocytes # (Auto) 0.8 Thou/mm3 (0.0-0.8); Monocytes % (Auto) 4 % (0-12); Neutrophils # (Auto) 17.2 Thou/mm3 (1.8-7.7); Neutrophils % (Auto) 88 % (37-80); Nucleated Red Blood Cell # 0.17 Thou/mm3 (0.00-0.00); Nucleated Red Blood Cell % 1 /100 WBC (0); Platelet Count 463 Thou/mm3 (140-440); RDW Standard Deviation 51.1 fL (35.1-43.9); Red Blood Count 3.61 Miln/mm3 (4.50-5.90); White Blood Count 19.6 Thou/mm3 (3.8-10.6)
[2024-05-28 13:50] LABS: Lactate (Lactic Acid) 4.2 mMol/L (0.4-2.0)
--- NOTE | 2024-05-28 13:55 | ESPR_ITS ---
<Statement entered by Sandra Jaramillo MD - 05/29/24 13:10> Patient was seen and examined at bedside, patient was admitted for sepsis secondary to osteomyelitis of the right foot. Surgery consultation was ordered for ductogram he recommended the patient need to have below-knee amputation. Started the patient on Zosyn and vancomycin renally dose and wound culture. During his stay patient developed A-fib with RVR which was new onset associated with mild chest discomfort, his systolic blood pressure was in the soft side ranging between 100s and 90s, started the patient on amiodarone drip and consulted morale officer in which she recommended to continue the amiodarone drip and switch him to amiodarone p.o. from tomorrow. We repleted the patient potassium and magnesium. We ordered for the patient troponin and it showed only mild elevation. Echocardiogram was ordered and were pending reads. We started the patient Bumex 1 mg twice daily with strict in and out and fluid restriction to 1500 mL/day. Will keep close monitoring of his serum creatinine. Patient reported that he has dysphagia for that reason order from speech eval pending recommendations. - Patient's plan and care discussed with my attending, Dr. Tiffanie Jaramillo MD Internal Medicine PGY-2 Documentation for date of: 05/28/24 Subjective Subjective Interval history: Patient states that he has no hx of afib. He denies chest pain and reports improved shortness of breath. His only complaint is right foot pain. He denies fevers or chills. Exam Vital Signs Temp Pulse Resp BP Pulse Ox O2 Del Method O2 Flow Rate 97 F 110 H 16 114/74 94 L Room Air 3 05/28/24 12:20 05/28/24 12:20 05/28/24 12:20 05/28/24 12:20 05/28/24 12:20 05/28/24 12:20 05/28/24 08:00 Narrative Exam General: Well appearing, well nourished, in no distress HEENT: Normocephalic, atraumatic, conjunctiva clear, sclera non-icteric, EOM intact Heart: Tachycardic and Irregular rhythm, no murmur Lungs: Rales on b/l PLL, no wheezes Abdomen:soft, nontender, non distended Extremities: L BKA; ulcer on right lateral foot and amputated 5 digits with necrotic ulcer superimposed, tender to palpation, erythematous Neurologic: Moves all extremities spontaneously,A&Ox3 Psychiatric: Cooperative, normal mood and affect. Objective Labs 05/28/24 13:32 05/28/24 13:32 Labs: Laboratory Results - last 24 hr 05/27/24 05/27/24 05/27/24 18:12 19:34 22:36 WBC 18.5 H RBC 3.54 L Hgb 8.6 L Hct 27.3 L MCV 77 L MCH 24.3 L MCHC 31.5 RDW Std Deviation 50.6 H Plt Count 440 D Neut % (Auto) 87 H Lymph % (Auto) 5 L Worth % (Auto) 3 Eos % (Auto) 1 Baso % (Auto) 0 Neut # (Auto) 16.2 H Lymph # (Auto) 0.9 L Worth # (Auto) 0.6 Eos # (Auto) 0.2 Baso # (Auto) 0.0 Immature Gran # (Auto) 0.56 H Absolute Nucleated RBC 0.06 H Immature Gran % 3 H Nucleated RBC % 0 ESR Sodium 125 L 132 L Potassium 5.4 H 3.9 D Chloride 91 L 97 L Carbon Dioxide 21.0 20.9 Anion Gap 13 14 BUN 75 H 77 H Creatinine 2.5 H 2.2 H Estim Creat Clear Calc Not Performed. Not Performed. eGFR 28 L 32 L BUN/Creatinine Ratio 30 H 35 H Glucose 638 H* 487 H* D Estimated Ave Glu mg/dL Hemoglobin A1c Calculated Osmolality 303 H 309 H Lactic Acid Calcium 9.0 8.3 Corrected Calcium 9.3 9.1 Phosphorus Magnesium Total Bilirubin 0.6 0.4 AST 18 14 ALT < 7 L < 7 L Alkaline Phosphatase 111 98 C-Reactive Prot, Quant B-Natriuretic Peptide > 3280 H* Total Protein 7.8 6.6 Albumin 3.6 3.0 L D Globulin 4.2 H 3.6 H Albumin/Globulin Ratio 0.9 L 0.8 L Beta-Hydroxybutyrate/Acetoacetate 1.7 H 05/28/24 05/28/24 04:47 12:10 WBC 20.7 H RBC 3.29 L Hgb 8.1 L Hct 26.1 L MCV 79 L MCH 24.6 L MCHC 31.0 RDW Std Deviation 51.2 H Plt Count 445 H Neut % (Auto) 88 H Lymph % (Auto) 4 L Worth % (Auto) 4 Eos % (Auto) 2 Baso % (Auto) 0 Neut # (Auto) 18.2 H Lymph # (Auto) 0.8 L Worth # (Auto) 0.9 H Eos # (Auto) 0.3 Baso # (Auto) 0.0 Immature Gran # (Auto) 0.45 H Absolute Nucleated RBC 0.11 H Immature Gran % 2 H Nucleated RBC % 1 H ESR 103 H Sodium 130 L Potassium 4.0 Chloride 96 L Carbon Dioxide 22.9 Anion Gap 11 BUN 87 H Creatinine 2.3 H Estim Creat Clear Calc 26.3 L eGFR 31 L BUN/Creatinine Ratio 38 H Glucose 422 H* D Estimated Ave Glu mg/dL 246 H Hemoglobin A1c 10.2 H Calculated Osmolality 305 H Lactic Acid 4.2 H* Calcium 8.1 L Corrected Calcium 8.7 Phosphorus 4.5 Magnesium 2.4 Total Bilirubin 0.5 AST < 8 ALT < 7 L Alkaline Phosphatase 101 C-Reactive Prot, Quant 17.5 H B-Natriuretic Peptide Total Protein 6.8 Albumin 3.2 L Globulin 3.6 H Albumin/Globulin Ratio 0.9 L Beta-Hydroxybutyrate/Acetoacetate Quality Measures Quality Measures VTE prophylaxis Advance care planning discussed with:: patient and spouse Assessment & Plan Assessment Current Active Medications: Generic Name Dose Route Start Last Admin Trade Name Freq PRN Reason Stop Dose Admin Acetaminophen 650 mg 05/28/24 04:05 Acetaminophen 325 Mg Tablet PO 06/27/24 04:04 Q6H PRN Pain 1-3 and/or Fever >100.1 Aspirin 81 mg 05/28/24 09:00 05/28/24 10:49 Aspirin Ec 81 Mg Tabec PO 06/27/24 08:59 Not Given QDAY KENNY Bumetanide 1 mg 05/28/24 09:00 05/28/24 09:30 Bumetanide Inj 0.25 Mg/Ml Vial 4 Ml IVP 06/27/24 08:59 1 mg BID KENNY Administration Dextrose 25 ml 05/28/24 04:12 Dextrose 50%-Water Inj 50 Ml Syringe IV 06/27/24 04:11 Q15MIN PRN BG 50-70 responsive npo pt Dextrose 50 ml 05/28/24 04:12 Dextrose 50%-Water Inj 50 Ml Syringe IV 06/27/24 04:11 Q15MIN PRN BG <50 OR BG <70 & pt unresponsive Glucagon 1 mg 05/28/24 04:12 Glucagon Inj 1 Mg Vial IM Q15MIN PRN BG <70, and no IV access Heparin Sodium (Porcine) 5,000 unit 05/28/24 09:00 05/28/24 10:49 Heparin Sod Inj 5000 Unit/Ml Vial SC 06/11/24 08:59 Not Given Q12HR KENNY Piperacillin/Tazobactam/Dextrose 50 mls @ 12.5 mls/hr 05/28/24 14:00 05/28/24 13:19 Zosyn IV 06/04/24 05:59 12.5 mls/hr Q8HR [facility] Administration Protocol Vancomycin/Sodium Chloride 200 mls @ 200 mls/hr 05/28/24 10:00 Vancomycin/Ns 1 Gm Ivpb IV 06/04/24 09:59 X1 KENNY Vancomycin/Sodium Chloride 750 mg in 150 mls @ 150 mls/hr 05/29/24 09:00 Vancomycin/Ns 750 Mg Ivpb IV 06/05/24 08:59 Q24H KENNY Amiodarone HCl/Dextrose 360 mg in 200 mls @ 33.333 mls/hr 05/28/24 11:46 05/28/24 12:06 Nexterone Ivpb IV 05/28/24 17:45 33.333 mls/hr .Q6H ONE Administration Amiodarone HCl/Dextrose 360 mg in 200 mls @ 16.667 mls/hr 05/28/24 18:07 Nexterone Ivpb IV 05/29/24 18:06 .Q12H KENNY Insulin Glargine 15 unit 05/28/24 09:00 05/28/24 09:05 Insulin Glargine (Lantus) 5 Unit/0.05 Ml (Per 5 Units) SC 06/27/24 08:59 15 unit BID KENNY Administration Insulin Human Lispro 0 unit 05/28/24 11:10 05/28/24 11:34 Insulin Lispro (Admelog) 1 Unit/0.01 Ml Unit SC 06/27/24 05:59 10 unit Q6HR KENNY Administration Protocol Ondansetron HCl 4 mg 05/28/24 04:05 Ondansetron Inj 2 Mg/Ml Inj 2 Ml IV 06/27/24 04:04 Q6H PRN NAUSEA OR VOMITING Protocol Pharmacy Consult 1 each 05/28/24 09:00 05/28/24 10:49 Vancomycin Pharmacy To Dose 1 Each Each IV 06/27/24 08:59 Not Given QDAY [facility] Pharmacy Consult 1 each 05/28/24 11:07 Pharmacy Renal Dose Adjustment 1 Ea XX 06/27/24 11:06 PRN PRN CONSULT Sennosides 1 tab 05/28/24 09:00 05/28/24 08:39 Senna Tablet PO 06/27/24 08:59 1 tab QDAY [facility] Administration Protocol Plan 63-year-old male with past medical history of CAD, status post PCI with LAD stents, essential hypertension, hyperlipidemia, CKD stage IIIb, insulin- dependent type 2 diabetes (last A1c 9.0), HFrEF (EF 30 to 35%), osteomyelitis with past surgeries and amputations (left BKA, right hand 3rd-5th finger) secondary to diabetic foot ulcer presenting with shortness of breath requiring starting home oxygen will be admitted for Sepsis 2/2 osteomyelitis, CHF exacerbation and workup of new dysphagia-like symptoms. #Sepsis 2/2 #Osteomyelitis of the right foot WBC 20.7 HR 150s Elevated creatinine 2.5, lactic 4.2, CRP 17.5 ESR 103 XR shows osteomyelitis amputated distal first and second metatarsals, air in the soft tissue Supervising Producer Dr. Henson Per family, patient has been on several oral antibiotics in the past month but still has some oozing and purulence in the area Lactic 4.2->3.9 Received 30cc/kg bolus dose in the ED for sepsis. Held IVF afterwards due to concern for fluid overload in setting of acute on chronic HFrEF exacerbation Plan: R BKA per Dr. Rudolph Will start the patient on IV Zosyn (renally dosed) and Vancomycin(renally dosed) Wound culture ordered Wound care referral General Surgery, Dr. Rudolph, has been consulted appreciate recommendations #Afib with RVR #new onset Afib #Troponinemia Patient denies hx of Afib; troponin elevated at 0.084 Rapid response called @ 1140 05/28 for Afib with RVR K 4, Mg 2.4 Phos 4.5 Cardiology consulted; appreciate recommendations Plan: Amiodarone drip->Amiodarone 200mg BID Metoprolol XL as BP permits K>4; Mg >2 Heparin drip Echo pending #Acute on chronic HFrEF exacerbation (EF 30 to 35%) #Acute hypoxic/hypercapnic respiratory failure #History of coronary artery disease s/p stent placement #Cardiorenal syndrome Patient has extensive past medical history of cardiac disease; heart failure along with CAD and follows Dr. Velazquez, cardiology, outpatient Apparently last visit was about a month ago and apparently his heart failure is about the same has not improved or worsened Echo from 01/2024 shows: Mildly dilated LV. Normal wall thickness. Estimated EF 30-35 %. Global LV systolic function is severely decreased. RV not well visualized. [id number] MR. Cardiology consulted; appreciate recommendations Plan: IV Lasix 40mg and Bumex 1mg x1 Strict I's and O's Daily weight Oxygen supplementation as needed Fluid restriction 1500 mL daily #JADIEL on CKD stage IIIb #Prerenal Azotemia #Hyponatremia Baseline 1.8(05/04) Given 2 L of IV fluids in the ED; then 40mg Lasix by admitting team Prerenal azotemia likely secondary to poor p.o. intake/dehydration versus CHF exacerbation and vascular congestion Will monitor renal function; needs diuresis for HFrEF and antibiotics for osteomyelitis but concern for damage to kidneys Plan: Renally dose medication Avoid nephrotoxic agents Monitor sodium correction, Fluid restriction as above 1mg Bumex x1 #New dysphagia #Poor p.o. intake Patient has been having poor p.o. intake for the past several days Per , patient has dysphagia to both solid and liquid which is a new symptom Apparently, the patient gargles and has some remnant after eating or drinking fluids Plan: Speech eval ordered->recommends dysphagia 2 with mildly thick liquids Possible GI consult #Insulin-dependent type 2 diabetes #Hyperglycemia A1C 10.2; Lantus 15u BID at home BG 600+ in ED, BHB 1.7 Plan: Lantus 15u BID Sliding scale insulin resistant every 6 hours Repeat A1c ordered #Possible superimposed pneumonia? #Leukocytosis Patient presenting with acute shortness of breath requiring home oxygen use Patient has been on oral antibiotics for the past several weeks Patient currently in the ED on 2 to 3 L nasal cannula which is not usual for him Chest x-ray does show bilateral pneumonia versus vascular congestion Plan: Started patient on broad-spectrum IV antibiotic, Zosyn (renally dosed)/Vancomycin(renally dosed) Follow-up on blood cultures #Microcytic anemia Patient has had anemia since being admitted sometime in January Hemoglobin has consistently been below 10 since that time with no improvement Iron panel and ferritin from the past anemia of chronic disease versus less likely iron deficiency anemia Differentials include: As stated above along with sideroblastic anemia, lead poisoning Patient is not on any iron supplementation Plan: Follow-up outpatient and referred to parts data writer Hospital Management: Lines: PIV Diet: Dysphagia 1 Bowel: Senna GI prophylaxis: Protonix DVT prophylaxis: Heparin drip Dispo: Telemetry Code: Full The patient's plan was discussed with attending Dr. Moreno and senior residents Dr. Montanez and Dr. Ella Johns, DO PGY1 Internal Medicine Attending Provider Attestation/Addendum I have examined the patient, reviewed labs and imaging findings, discussed the case with the resident(s), and reviewed entered orders. I agree with the plan of care as outlined in this note, with these additional summaries/recommendations: Patient is a 63-year-old male with a extensive past medical history including uncontrolled diabetes mellitus type 2, HFrEF (EF 30%), CAD with LAD stents, primary hypertension, hyperlipidemia, CKD stage IIIb, and history of osteomyelitis with multiple amputations in the past presented to [facility] emergency department on 05/28/2024 with chief complaint of shortness of breath. Patient seen at bedside. Patient had rapid response this morning for atrial fibrillation with rapid ventricular response. Patient was started on amiodarone gtt and cardiology consulted, Recommendations appreciated. [id number] score 5 points indicating 7.2% stroke risk per year. Has bled score 3 points indicating 5.8% risk of major GI bleed. Start heparin gtt, risks and benefits of anticoagulation discussed with patient. Patient also diagnosed with acute CHF exacerbation on admission. Previous echocardiogram revealed ejection fraction of 30 to 35% with global LV systolic dysfunction. Preload reduction with fluid restriction and Bumex. We will hold giving afterload reduction with EMERALD/ARB or Entresto at this time given patient's renal disease. Patient does not appear to take any neurohormonal blockade agents and we will hold for now in the setting of acute exacerbation. Patient was also found to have osteomyelitis of right foot with fever and leukocytosis on admission. Continue IV antibiotics and blood cultures pending. General surgery consulted with plans for BKA and cardiac clearance requested. Wound care ordered. Patient has uncontrolled diabetes mellitus type 2 with severe hyperglycemia. A1c 10.2% and patient counseled on the importance of glucose control. Patient diagnosed with JADIEL on CKD stage IIIb. JADIEL likely secondary to prerenal azotemia versus cardiorenal syndrome. Hold additional diuresis for now. Repeat renal panel in a.m. and if no improvement we will consult nephrology. Patient updated on the plan and in agreement. Dr. Moreno
[2024-05-28 13:57] LABS: Hemoglobin 8.7 g/dL (13.5-16.0)
--- NOTE | 2024-05-28 14:00 | PD.IMCONS ---
HPI Data of Consult Requesting Physician: Waldemar Garcia MD Primary Care Provider: Jalil Le MD Consult Narrative Reason for consult: Atrial fibrillation with RVR, NSVT and preoperative cardiac risk assessment History of present illness: 63-year-old male with past medical history of multivessel CAD on medical therapy given the extensive severe disease which was not amenable to PCI or bypass surgery in March 2022, previous PCI to the LAD, essential hypertension, hyperlipidemia, CKD stage IIIb, insulin-dependent type 2 diabetes (last A1c 9.0), HFrEF (EF 30 to 35%), osteomyelitis with past surgeries and amputations (left BKA, right hand 3rd-5th finger) secondary to diabetic foot ulcer presenting to the ED on 05/28 with shortness of breath requiring starting home oxygen. History taken alongside patient's who is bedside. Per patient, he started developing increased weakness and shortness of breath within the past few days and has progressively started to feel more debilitated than usual. Of note, patient was discharged a month ago from the ED for UTI requiring oral antibiotics. 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 Per , the wound has been draining some yellow pus lately even with the patient being on oral antibiotics. Patient was recently started on a regiment of clindamycin along with megestrol for poor p.o. intake. Patient's states that he has not been eating well lately and as a result has not been taking his medication and insulin; moreover, patient apparently has dysphagia to both solids and liquids and is not able to swallow properly along with some regurgitation. Patient follows up with Dr. Velazquez outpatient and apparently had an appointment last month. Patient otherwise denies any concerning symptoms such as fever/chills, weight loss, nausea/vomiting/diarrhea, abdominal pain, melena, hematochezia, dysuria or hematuria. Medical history: As above Surgical history: Left heart catheterization, amputations as noted above Allergies: NKDA Medications: Patient apparently takes 15 units of insulin at bedtime (states that this can fluctuate at times?), also takes metformin 1000 mg p.o. twice daily, Bumex 1 mg p.o. twice daily, aspirin 81 mg p.o. daily, rosuvastatin 20 mg p.o. daily, Flomax 0.4 mg p.o. daily, gabapentin 300 mg p.o. daily Family history: Noncontributory Social history: Patient lives in [place] with his , denies tobacco, alcohol or illicit drug use ROS: All 12 systems assessed and the patient denies unless otherwise stated in HPI. In the ED, patient presented normotensive, regular heart rate, respiratory rate 18, afebrile satting 99 initially but then requiring 2 to 3 L of nasal cannula oxygenation. Fingerstick blood glucose initially was in the 600 but upon being given 10 units of regular insulin has been downtrending to 342. Pertinent lab findings include WBC 18.5, hemoglobin 8.6 (MCV 77), platelet count 440, sodium 125, potassium 5.4, creatinine 2.5, BUN 77 and BNP > 3280. Foot x-ray shows no marked difference deviation from past imaging, EKG does not show any concerning ST changes and chest x-ray shows perihilar edema along with bilateral pneumonia pattern. Patient will be admitted for workup of new dysphagia-like symptoms, likely CHF exacerbation and possible underlying infectious process (pneumonia versus osteomyelitis) and glycemic control. Cardiology consulted for further evaluation after rapid response as the patient was having possible A-fib with RVR versus NSVT. EKG is reviewed from the rapid response around 11:30 AM and patient appears to be in sinus tachycardia with NSVT lasting around 4-7 beats each time. Patient had a small sustention around 150 bpm and patient denied any Chest pain chest pressure at that point of time. Blood pressure is slightly on the lower side around 95 to 60 mmHg. I was consulted and patient was started on amiodarone drip as per protocol. Vitals and labs were reviewed and potassium was 4 and magnesium was 2.4 but sodium was 130. Patient's blood sugar was elevated 248 and was given some cc:: cc: Waldemar Garcia MD Review of Systems Review of Systems Systems Reviewed: All systems reviewed, normal except as documented Past Medical History Past Medical History NEUROLOGIC: Positive Neurological Disorders and Peripheral Neuropathy; Negative Cerebrovascular Accident, Transient Ischemic Attacks (TIA), Dementia, Alzheimer's Disease, Parkinson's Disease, Brain Tumor, Meningitis, Seizures, Epilepsy, Multiple Sclerosis, Cerebral Palsy, Amyotrophic Lateral Sclerosis (ALS/Sara Gehrig's), Guillain-Donora Syndrome, Spina Bifida, Paralysis, Eldridge's Palsy, Subdural Hematoma, Migraine, Head Trauma, Spinal Cord Injury or Traumatic Brain Injury CARDIAC: Positive Cardiac Disorders (cardiac arrest x 5 minutes- 12/04/22. irregular heart rate sometimes.), Myocardial Infarction (17 yrs ago), Coronary Artery Disease, Hypercholesterolemia, Cellulitis, Hypertension and Hypotension; Negative Cardiac Arrhythmia, Atrial Fibrillation, Angina, Heart Murmur, Atherosclerotic Heart Disease, Peripheral Vascular Disease, Aneurysm, Congestive Heart Failure, Congenital Heart Disease, Valvular Heart Disease, Rheumatic Fever, Cardiomyopathy, Edema, Pericarditis, Deep Vein Thrombosis or Varicose Veins RESPIRATORY: Positive Pneumonia; Negative Respiratory Disorders, Chronic Obstructive Pulmonary Disease (COPD), Asthma, Bronchitis, Emphysema, Pulmonary Fibrosis, Cystic Fibrosis, Tuberculosis, Pulmonary Embolism, Pulmonary Edema or Sleep Apnea GASTROINTESTINAL: Negative Gastrointestinal Disorders, Hepatitis, Cirrhosis, Pancreatitis, Celiac Disease, Gall Bladder Disease, Gastrointestinal Bleed, Esophageal Varices, Mclaughlin's Esophagus, Colitis, Ulcerative Colitis, Diverticulitis, Diverticulosis, Ulcer, Colorectal Cancer, Irritable Bowel, Crohn's Disease, Obstructive Bowel, Hiatal Hernia, Hemorrhoids, Gastroesophageal Reflux Disease or Obesity GENITOURINARY: Negative Genitourinary Disorders, Renal Disease, Kidney Stones, Polycystic Kidney Disease, Neurogenic Bladder, Inguinal Hernia, Dialysis, Prostate Cancer or Benign Prostatic Hyperplasia REPRODUCTIVE: Negative Breast Cancer or Testicular Cancer MUSCULOSKELETAL: Positive Musculoskeletal Disorders and Osteomyelitis (bilateral feet); Negative Muscular Dystrophy, Myasthenia Gravis, Marfan's Syndrome, Bone Cancer, Arthritis, Rheumatoid Arthritis, Osteoporosis, Degenerative Disk Disease, Gout, Scoliosis, Carpal Tunnel Syndrome, Fibromyalgia, Fractures, Degenerative Joint Disease or Poliovirus ENT: Negative History of ENT Problems, Cataracts, Glaucoma, Blind, Retinal Detachment, Macular Degeneration, Ear Infection, Deafness, Head Trauma or Eye Prosthesis ENDOCRINE: Positive Endocrine Disorders and Diabetes Mellitus Type 2; Negative Diabetes Mellitus Type 1, Hypoglycemia, Wally's Syndrome, [place]'s Disease, Hyperthyroidism, Hypothyroidism, Parathyroid Disease, Pituitary Disease, Systemic Lupus Erythematosus, Syndrome of Inappropriate Antidiuretic Hormone (SIADH), Adrenal Disease or Graves' Disease HEMATOLOGIC: Negative Blood Disorders, Anemia, Leukemia, Hemophilia, Thalassemia, Sickle Cell Disease or Clotting Problems PSYCHO/SOCIAL: Negative Psychiatric Problems, Schizophrenia, Recreational Drug Use, Bipolar Disorder, Depression, Anxiety, Behavior Problems, Self-Mutilation, Attention Deficit Disorder, Attention Deficit Hyperactivity Disorder, Post Traumatic Stress Disorder or Eating Disorder OTHER HISTORY: Positive Hospitalization and Chicken Pox; Negative Autoimmune Disease, Down Syndrome, Autism, Developmental Delay, Shingles, Falls, Blood Transfusions, Blood Transfusion Reaction, Anesthesia Reactions, Organ Transplant, Chemotherapy, Radiation Therapy, Hyperbaric Therapy, MRSA, VRSA, Vancomycin-Resistant Enterococci, Human Immunodeficiency Virus (HIV), Measles, Mumps, Rubella (Uzbek Measles), Pertussis, Clostridium Difficile, Cancer, Breast Cancer, Colorectal Cancer, Lung Cancer, Prostate Cancer or Testicular Cancer Family History FAMILY HISTORY: Positive Family Cardiac Disorders; Negative Family Psychiatric Problems, Family Respiratory Disorders, Family Gastrointestinal Problems, Family Cancer, Family Surgery or Family Anesthesia Reaction Surgical History SURGICAL: Positive Coronary Stent (x1- 17 yrs ago), Cardiac Catheterization and Angiogram; Negative Cardiac Surgery, Open Heart Surgery, Coronary Artery Bypass Graft, Valve Replacement, Vascular Surgery, Pacemaker, Auto Implanted Cardiovert Defib, Carotid Endarterectomy, Endocrine Surgery, Thyroidectomy, Ear Surgery, Tympanostomy Tube, Eye Surgery, Nose Surgery, Oral Surgery, Tonsillectomy, Adenoidectomy, Cochlear Implant, Corneal Transplant, Throat Surgery, Abdominal Surgery, Tracheostomy, Gastric Bypass Surgery, Gastrostomy, Bowel Surgery, Nephrectomy, Transurethral Resection, Joint Replacement, Amputation, Open Reduction Internal Fixation, Arthroscopy, Neurologic Surgery, Brain Shunt, Vasectomy or Organ Transplant Social History SMOKING STATUS: Never smoker SECOND HAND EXPOSURE: No Meds Home Medications and Allergies Home Medications ?Medication ?Instructions ?Recorded ?Confirmed ?Type insulin glargine 100 unit/mL (3 35 unit subcut BID 06/24/20 05/28/24 History mL) subcutaneous pen (Lantus Solostar U-100 Insulin) metformin 1,000 mg tablet 1,000 mg PO BID 06/24/20 05/28/24 History aspirin 81 mg tablet,delayed 81 mg PO QDAY 03/23/22 05/28/24 History release gabapentin 300 mg capsule 300 mg PO QDAY 01/01/24 05/28/24 History rosuvastatin 20 mg tablet 20 mg PO QDAY 01/01/24 05/28/24 History tamsulosin 0.4 mg capsule (Flomax) 0.4 mg PO DAILY 01/01/24 05/28/24 History bumetanide 1 mg tablet 1 mg PO BID 01/19/24 05/28/24 History Allergies Allergy/AdvReac Type Severity Reaction Status Date / Time No Known Allergies Allergy Verified 05/28/24 05:31 Exam Vital Signs Temp Pulse Resp BP Pulse Ox O2 Del Method O2 Flow Rate 97.1 F 87 24 H 101/63 100 Nasal Cannula 3 05/28/24 16:00 05/28/24 18:09 05/28/24 16:00 05/28/24 18:09 05/28/24 16:00 05/28/24 16:00 05/28/24 16:00 Narrative Exam General: A/O x3, ill-appearing, thin. Eyes: PERRL, EOMI. Anicteric, vision grossly intact. Ears: No ear pain, no ear discharge, Hearing grossly intact. Nose: No nasal discharge. Mouth/Throat: Dry mucous membranes, no redness, no lesions. Neck: Neck supple, non-tender, no cervical lymphadenopathy. Lungs: Clear JOHN to auscultation and percussion, No accessory muscle use. Cardio: Normal S1/S2, regular rhythm, no murmurs, no JVD Abdomen: Firm without distension, non-tender, peristalsis present, no guarding or rebound. Extremities: R upper 3-5 digit amputation, L BKA, R foot covered by dressing, no peripheral edema , non-tender. Skin: No rashes, no lesions, warm to touch. Neuro: No focal neurological deficits. Motor and sensory intact. Psych: Cooperative, appropriate mood and effect. Results Labs 06/01/24 05:00 06/01/24 05:00 Labs: Short CBC 05/28/24 05/28/24 Range/Units 04:47 13:32 WBC 20.7 H 19.6 H (3.8-10.6) Thou/mm3 Hgb 8.1 L 8.7 L (13.5-16.0) g/dL Hct 26.1 L 28.7 L (41.0-53.0) % Plt Count 445 H 463 H (140-440) Thou/mm3 BMP 05/27/24 05/28/24 05/28/24 22:36 04:47 13:32 Sodium 132 L 130 L 132 L Potassium 3.9 D 4.0 3.9 Chloride 97 L 96 L 96 L Carbon Dioxide 20.9 22.9 25.0 BUN 77 H 87 H 84 H Creatinine 2.2 H 2.3 H 2.3 H Glucose 487 H* D 422 H* D 261 H D Calcium 8.3 8.1 L 8.6 Cardiac Enzymes 05/28/24 Range/Units 13:32 Troponin I 0.084 H* (0.0-0.045) ng/mL Liver Function 05/27/24 05/28/24 05/28/24 Range/Units 22:36 04:47 13:32 Total Bilirubin 0.4 0.5 0.5 (0.3-1.2) mg/dL AST 14 < 8 < 8 (0-34) U/L ALT < 7 L < 7 L < 7 L (10-49) U/L Alkaline Phosphatase 98 101 105 (46-116) U/L Albumin 3.0 L D 3.2 L 3.4 (3.4-4.8) gm/dL Assessment and Plan Additional Assessment & Plan Additional Plan: 63-year-old male with past medical history of multivessel CAD on medical therapy given the extensive severe disease which was not amenable to PCI or bypass surgery in March 2022, previous PCI to the LAD, essential hypertension, hyperlipidemia, CKD stage IIIb, insulin-dependent type 2 diabetes (last A1c 9.0), HFrEF (EF 30 to 35%), osteomyelitis with past surgeries and amputations (left BKA, right hand 3rd-5th finger) secondary to diabetic foot ulcer presenting to the ED on 05/28 with shortness of breath requiring starting home oxygen. Cardiac catheterization completed in March 2022 showed severe double vessel coronary artery disease involving the LAD and LCX. There is severe 90%mid LAD disease with tandem lesions and extending all the way into the distal LAD, severe 90% disease in the proximal and mid portion of the medium-sized OM1, severe diffuse disease noted of his small OM2, there is moderate 50% disease of the distal left main, which is moderately calcified involving the ostial LAD with 60% stenosis and ostial LCX with 70% stenosis. RCA is a large caliber artery providing good supply with mild diffuse disease. 2. Given the extensive nature of the disease and poor targets for bypass, we will plan to treat the patient aggressively with medications and then followup closely prior to any intervention as his symptoms are only shortness of breath. 1. Arrhythmias-NSVT 2. Acute on chronic systolic congestive heart failure this admission with an EF of 10 to 15% 3. Dilated cardiomyopathy 4. Severe multivessel CAD which is not amenable to any kind of PCI or CABG and on maximal medical therapy with history of previous LAD stents 5. Essential hypertension 6. NSTEMI type II 7. Sepsis secondary to osteomyelitis 8. Insulin-dependent diabetes mellitus 9. JADIEL on CKD stage B 10. Hyperlipidemia 11. History of drug abuse many years ago 12. Severe PAD with history of chronic smoking Rapid response was called because of the atrial fibrillation with RVR and possible VT. Cardiology was consulted for further evaluation. Recommend to give the patient a amiodarone drip along with amiodarone 200 mg twice daily and metoprolol XL if systolic blood pressure is elevated greater than 110-120 mmHg. There was no evidence of any atrial fibrillation with RVR. Patient appears to be having sinus tachycardia with only NSVT and will check an echocardiogram to evaluate his LV function given his history of CAD and PAD. Patient appears to be having multiple risk factors for CAD and PAD with history of smoking as well as drug abuse previously. Echocardiogram completed today showed the following findings with dilated cardiomyopathy and EF of only 10 to 15%. Mildy dilated LV size. Severe systolic dysfunction. Estimated EF 10-15% Grade III DD with Akinetic apex along with severe global hypokensis. Normal RV size. Modeate RV systolic dysfunction. Estiamted RVSP 50mmHg. Atleast moderate PAH Modeate MR. Mild to moderate TR, Mild AI and PI. Mild biatrial dilation with IVC mildly dilated. Overall picture of dilated cardiomyopathy Recommendations: Echocardiogram findings did confirm the suspicion for severe cardiomyopathy now shows an EF of 10 to 15% which is mostly secondary to ischemic cardiomyopathy and less likely nonischemic cardiomyopathy given his history as noted above. Patient is at increased risk of arrhythmias just with his low EF and possibly scarred myocardium from previous MIs. Recommend to continue amiodarone 200 mg oral twice daily along with the amiodarone drip and keep it at 1 mg/min for now. Keep potassium greater than 4 and magnesium greater than 2.0 at all times. Can start metoprolol XL or beta-blockers if blood pressure is permissible. Regarding the preoperative cardiac risk assessment for the patient patient is at high risk for any kind of surgery and given his severely low EF of 10 to 15% with nonsustained ventricular tachycardia with a history of CAD which is not amenable to both PCI as well as CABG as well as severe PAD. Ufortunately his EF and rest of his conditions appear to be chronic and no interventions can be done at the present point of time for the patient that he is not a candidate for any advanced therapies given his overall comorbidities. If patient needs to have any kind of surgery then patient should be explained about the high risk for the surgery in detail by the surgical team given his cardiac status. Management of rest of the medical conditions as per primary team and other consultants. Thank you for the consult and allowing me to participate in the care of the patient. Cardiology will continue to follow. Chaz Fajardo M.D. Interventional Cardiology
[2024-05-28 14:20] LABS: Alanine Aminotransferase < 7 U/L (10-49); Albumin, Serum 3.4 gm/dL (3.4-4.8); Albumin/Globulin Ratio 0.9 (1.2-2.2); Alkaline Phosphatase 105 U/L (46-116); Anion Gap 11 (7-16); Aspartate Amino Transferase < 8 U/L (0-34); BUN/Creatinine Ratio 37 Ratio (12-20); Bilirubin,Total 0.5 mg/dL (0.3-1.2); Blood Urea Nitrogen 84 mg/dL (9-23); Calcium 8.6 mg/dL (8.3-10.6); Calcium (Corrected) 9.1 mg/dL (8.5-10.1); Chloride 96 mMol/L (98-107); Creatinine (Component) 2.3 mg/dL (0.6-1.3); Estimated Creatinine Clearance 26.3 mL/min (>60); Globulin 3.8 gm/dL (2.3-3.5); Glucose 261 mg/dL (74-106); Magnesium 2.5 mg/dL (1.6-2.6); Osmolality,Calculated 299 (275-295); Potassium 3.9 mMol/L (3.4-5.1); Sodium 132 mMol/L (136-145); Total Protein 7.2 gm/dL (5.7-8.2); eGFR 31 See Note
[2024-05-28 14:23] LABS: Troponin I 0.084 ng/mL (0.0-0.045)
[2024-05-28 15:13] LABS: Lactate (Lactic Acid) 3.9 mMol/L (0.4-2.0)
[2024-05-28 15:27] LABS: Reflex Lactate? Y
--- NOTE | 2024-05-28 15:36 | PC.SS ---
SS has sent inquire to the local SNF using [facility].
[2024-05-28] MEDS: POTASSIUM CHL 10 mEq IVPB 10 MEQ/100 ML BAG 100 MEQ IV (15:59)
--- NOTE | 2024-05-28 16:23 | PC.NURSE ---
Called to Lab for stat PTT draw. Per boot and shoe laborer someone is up there now.
--- NOTE | 2024-05-28 16:49 | PC.NURSE ---
Pt. has not eaten much today , pt. refuses insulin at this time for BG of 177.
[2024-05-28 17:04] LABS: Partial Thromboplastin Time 27.3 Seconds (22.0-36.0)
--- NOTE | 2024-05-28 17:36 | PC.NURSE ---
Verified order for heparin bolus prior to heparin gtt start and Dr. Johns agrees with heparin bolus.
[2024-05-28] MEDS: HEPARIN SOD INJ 5000 UNIT/ML VIAL 3480 UNIT IVP (17:40)
[2024-05-28] MEDS: Heparin/D5w 25K 250 ML Ivpb 25,000 UNIT/250 ML BAG 6.971 UNIT IV (17:41)
--- NOTE | 2024-05-28 17:58 | PC.NURSE ---
Utility System Repairer Sirena called and notified RN that pt. started to have multiple PVCs again. Dr. Moreno aware and orders to start third back of amiodarone drip, orders to continue to monitor for now per Dr. Jean Baptiste. No further orders at this time.
--- NOTE | 2024-05-28 18:05 | ESCONSULT_ITS ---
HPI Consult details Consult date: 05/28/24 Reason for consultation narrative: Patient was seen in consultation because of gangrene and infection over the right foot. History of present illness: Patient has had the chronic osteomyelitis and peripheral vascular disease. He has noticed right foot infection recently with a dry gangrene. He also was found to have coronary artery disease. He developed SVT and was transferred to telemetry this afternoon. Patient has had a B-K amputation on the left side last year Past Medical History Past Medical History NEUROLOGIC: Positive Neurological Disorders and Peripheral Neuropathy; Negative Cerebrovascular Accident, Transient Ischemic Attacks (TIA), Dementia, Alzheimer's Disease, Parkinson's Disease, Brain Tumor, Meningitis, Seizures, Epilepsy, Multiple Sclerosis, Cerebral Palsy, Amyotrophic Lateral Sclerosis (ALS/Sara Gehrig's), Guillain-Davenport Syndrome, Spina Bifida, Paralysis, Eldridge's Palsy, Subdural Hematoma, Migraine, Head Trauma, Spinal Cord Injury or Traumatic Brain Injury CARDIAC: Positive Cardiac Disorders (cardiac arrest x 5 minutes- 12/04/22. irregular heart rate sometimes.), Myocardial Infarction (17 yrs ago), Coronary Artery Disease, Hypercholesterolemia, Cellulitis, Hypertension and Hypotension; Negative Cardiac Arrhythmia, Atrial Fibrillation, Angina, Heart Murmur, Atherosclerotic Heart Disease, Peripheral Vascular Disease, Aneurysm, Congestive Heart Failure, Congenital Heart Disease, Valvular Heart Disease, Rheumatic Fever, Cardiomyopathy, Edema, Pericarditis, Deep Vein Thrombosis or Varicose Veins RESPIRATORY: Positive Pneumonia; Negative Respiratory Disorders, Chronic Obstructive Pulmonary Disease (COPD), Asthma, Bronchitis, Emphysema, Pulmonary Fibrosis, Cystic Fibrosis, Tuberculosis, Pulmonary Embolism, Pulmonary Edema or Sleep Apnea GASTROINTESTINAL: Negative Gastrointestinal Disorders, Hepatitis, Cirrhosis, Pancreatitis, Celiac Disease, Gall Bladder Disease, Gastrointestinal Bleed, E sophageal Varices, Mclaughlin's Esophagus, Colitis, Ulcerative Colitis, Diverticulitis, Diverticulosis, Ulcer, Colorectal Cancer, Irritable Bowel, Crohn's Disease, Obstructive Bowel, Hiatal Hernia, Hemorrhoids, Gastroesophageal Reflux Disease or Obesity GENITOURINARY: Negative Genitourinary Disorders, Renal Disease, Kidney Stones, Polycystic Kidney Disease, Neurogenic Bladder, Inguinal Hernia, Dialysis, Prostate Cancer or Benign Prostatic Hyperplasia REPRODUCTIVE: Negative Breast Cancer or Testicular Cancer MUSCULOSKELETAL: Positive Musculoskeletal Disorders and Osteomyelitis (bilateral feet); Negative Muscular Dystrophy, Myasthenia Gravis, Marfan's Syndrome, Bone Cancer, Arthritis, Rheumatoid Arthritis, Osteoporosis, Degenerative Disk Disease, Gout, Scoliosis, Carpal Tunnel Syndrome, Fibromyalgia, Fractures, Degenerative Joint Disease or Poliovirus ENT: Negative History of ENT Problems, Cataracts, Glaucoma, Blind, Retinal Detachment, Macular Degeneration, Ear Infection, Deafness, Head Trauma or Eye Prosthesis ENDOCRINE: Positive Endocrine Disorders and Diabetes Mellitus Type 2; Negative Diabetes Mellitus Type 1, Hypoglycemia, Gwynneville's Syndrome, Eusebio's Disease, Hyperthyroidism, Hypothyroidism, Parathyroid Disease, Pituitary Disease, Systemic Lupus Erythematosus, Syndrome of Inappropriate Antidiuretic Hormone (SIADH), Adrenal Disease or Graves' Disease HEMATOLOGIC: Negative Blood Disorders, Anemia, Leukemia, Hemophilia, Thalassemia, Sickle Cell Disease or Clotting Problems PSYCHO/SOCIAL: Negative Psychiatric Problems, Schizophrenia, Recreational Drug Use, Bipolar Disorder, Depression, Anxiety, Behavior Problems, Self-Mutilation, Attention Deficit Disorder, Attention Deficit Hyperactivity Disorder, Post Traumatic Stress Disorder or Eating Disorder OTHER HISTORY: Positive Hospitalization and Chicken Pox; Negative Autoimmune Disease, Down Syndrome, Autism, Developmental Delay, Shingles, Falls, Blood Transfusions, Blood Transfusion Reaction, Anesthesia Reactions, Organ Transplant, Chemotherapy, Radiation Therapy, Hyperbaric Therapy, MRSA, VRSA, Vancomycin-Resistant Enterococci, Human Immunodeficiency Virus (HIV), Measles, Mumps, Rubella (Croatian Measles), Pertussis, Clostridium Difficile, Cancer, Breast Cancer, Colorectal Cancer, Lung Cancer, Prostate Cancer or Testicular Cancer Family History FAMILY HISTORY: Positive Family Cardiac Disorders; Negative Family Psychiatric Problems, Family Respiratory Disorders, Family Gastrointestinal Problems, Family Cancer, Family Surgery or Family Anesthesia Reaction Surgical History SURGICAL: Positive Coronary Stent (x1- 17 yrs ago), Cardiac Catheterization and Angiogram; Negative Cardiac Surgery, Open Heart Surgery, Coronary Artery Bypass Graft, Valve Replacement, Vascular Surgery, Pacemaker, Auto Implanted Cardiovert Defib, Carotid Endarterectomy, Endocrine Surgery, Thyroidectomy, Ear Surgery, Tympanostomy Tube, Eye Surgery, Nose Surgery, Oral Surgery, Tonsillectomy, Adenoidectomy, Cochlear Implant, Corneal Transplant, Throat Surgery, Abdominal Surgery, Tracheostomy, Gastric Bypass Surgery, Gastrostomy, Bowel Surgery, Nephrectomy, Transurethral Resection, Joint Replacement, Amputation, Open Reduction Internal Fixation, Arthroscopy, Neurologic Surgery, Brain Shunt, Vasectomy or Organ Transplant Social History SMOKING STATUS: Never smoker SECOND HAND EXPOSURE: No Meds Home Medications and Allergies Home Medications ?Medication ?Instructions ?Recorded ?Confirmed ?Type insulin glargine 100 unit/mL (3 35 unit subcut BID 06/24/20 05/28/24 History mL) subcutaneous pen (Lantus Solostar U-100 Insulin) metformin 1,000 mg tablet 1,000 mg PO BID 06/24/20 05/28/24 History aspirin 81 mg tablet,delayed 81 mg PO QDAY 03/23/22 05/28/24 History release gabapentin 300 mg capsule 300 mg PO QDAY 01/01/24 05/28/24 History rosuvastatin 20 mg tablet 20 mg PO QDAY 01/01/24 05/28/24 History tamsulosin 0.4 mg capsule (Flomax) 0.4 mg PO DAILY 01/01/24 05/28/24 History bumetanide 1 mg tablet 1 mg PO BID 01/19/24 05/28/24 History Allergies Allergy/AdvReac Type Severity Reaction Status Date / Time No Known Allergies Allergy Verified 05/28/24 05:31 Exam Vital Signs Temp Pulse Resp BP Pulse Ox O2 Del Method O2 Flow Rate 97.1 F 113 H 24 H 91/63 100 Nasal Cannula 3 05/28/24 16:00 05/28/24 16:00 05/28/24 16:00 05/28/24 16:00 05/28/24 16:00 05/28/24 16:00 05/28/24 16:00 Narrative Exam Physical examination revealed thin built male who appeared to be older than his stated age he is 5 foot 7 inches tall weighing 128 pounds Constitutional Constitutional: chronically ill appearing Routine Extremities Exam Comments: Examination of the left foot showed B-K amputation with some skin changes. Patient has gangrene of the right foot at the transmetatarsal amputation which has been performed in the past. He also has a necrotic skin over the right lateral portion of the foot. Pulses are not palpable but the popliteal pulses are palpable on the right side. Results Results: Laboratory Laboratory Narrative: Patient's laboratory workup shows leukocytosis, he also has a lactic acidosis and acute kidney injury. Results: Imaging Imaging narrative: X-ray of the right foot showed osteomyelitis Assessment & Plan Additional Assessment Additional comments: Impression: Ischemic ulceration right foot Status post transmetatarsal amputation Status post B-K amputation left leg Peripheral vascular disease Diabetes Sepsis ASHD with history of congestive failure Plan Plan: Patient will not benefit from any debridement of the right foot. He will require B-K amputation. We will arrange for it whenever the medical director of hospice cleared him for general anesthesia. I suggest we asked the medical director of hospice to evaluate him for anesthesia. If he is not fit for general anesthesia we will discuss with the anesthesiologist regarding peripheral nerve block
[2024-05-28 18:07] LABS: Lactic Acid, 3 HR 3.7 mMol/L (0.4-2.0)
[2024-05-28] MEDS: AMIODARONE 360 MG IVPB 360 MG/200 ML BAG 16.667 MG IV (18:09)
[2024-05-28 18:10] LABS: Reflex Lactate? Y
[2024-05-28] MEDS: ONDANSETRON INJ 2 MG/ML INJ 2 ML 4 MG IV (19:21)
[2024-05-28] MEDS: PIPER/TAZO INJ 4.5 GM in SODIUM CHLORIDE 0.9% (P) 100 ML IV (21:22)
[2024-05-28 21:33] LABS: Lactic Acid, 3 HR 3.1 mMol/L (0.4-2.0)
[2024-05-28 22:04] LABS: Troponin I 0.095 ng/mL (0.0-0.045)
[2024-05-29] VITALS (13 sets, daily range): BP systolic 89–106; BP diastolic 60–78; PULSE 64–104; RESP 14–22; TEMP 35.9–36.2; O2SAT 94–100; BMI 22.5
[2024-05-29] MEDS: SODIUM CHLORIDE 0.9% 250 ML 250 ML 999 ML IV (00:12)
[2024-05-29 00:20] LABS: Partial Thromboplastin Time 42.8 Seconds (22.0-36.0)
[2024-05-29] MEDS: HEPARIN SOD INJ 5000 UNIT/ML VIAL 1700 UNIT IVP (01:04)
--- NOTE | 2024-05-29 04:38 | EKG_ITS ---
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 : [id number] Requested By: Leobardo Obregon Order Number: [id number] Reading MD: Leobardo Obregon Measurements Intervals Pride Rate: 60 P: 31 PA: 168 QRS: 6 QRSD: 96 T: -60 QT: 470 QTc: 470 Interpretive Statements SINUS RHYTHM WITH FREQUENT VENTRICULAR PREMATURE COMPLEXES LOW QRS VOLTAGE POSSIBLE ANTERIOR MYOCARDIAL INFARCTION , OF INDETERMINATE AGE Compared to ECG 05/28/2024 11:47:51 Ventricular premature complex(es) now present Low QRS voltage now present Atrial fibrillation no longer present Right-axis deviation no longer present Right bundle-branch block no longer present Myocardial infarct finding still present /[id number]
[2024-05-29] MEDS: traMADol HCL 50 MG TABLET PO (05:46)
[2024-05-29] MEDS: PIPER/TAZO INJ 4.5 GM in SODIUM CHLORIDE 0.9% (P) 100 ML IV ×3 (05:47→21:29)
[2024-05-29] MEDS: VANCOMYCIN/NS 1 GM IVPB 200 ML IV (07:41)
[2024-05-29] MEDS: AMIODARONE 360 MG IVPB 360 MG/200 ML BAG 16.667 MG IV (07:42)
[2024-05-29 07:59] LABS: Basophils % (Auto) 0 % (0-2.5); Eosinophils # (Auto) 0.3 Thou/mm3 (0.0-0.5); Eosinophils % (Auto) 1 % (0-10); Hematocrit 25.4 % (41.0-53.0); Immature Granulocytes % (Auto) 2 % (0-0); Immature Granulocytes Auto 0.37 Thou/mm3 (0.00-0.00); Lymphocytes % (Auto) 4 % (10-50); Mean Corpuscular HGB Conc 31.1 g/dl (31.0-37.0); Mean Corpuscular Hemoglobin 24.7 pg (25.0-35.0); Mean Corpuscular Volume 79 fL (80-100); Monocytes # (Auto) 0.9 Thou/mm3 (0.0-0.8); Monocytes % (Auto) 4 % (0-12); Neutrophils # (Auto) 21.2 Thou/mm3 (1.8-7.7); Neutrophils % (Auto) 89 % (37-80); Nucleated Red Blood Cell # 0.08 Thou/mm3 (0.00-0.00); Nucleated Red Blood Cell % 0 /100 WBC (0); Platelet Count 465 Thou/mm3 (140-440); RDW Standard Deviation 51.2 fL (35.1-43.9); White Blood Count 23.8 Thou/mm3 (3.8-10.6)
[2024-05-29 08:00] LABS: Beta Hydroxybutyrate 1.2 mmol/L (<0.6)
[2024-05-29 08:35] LABS: Hemoglobin 7.9 g/dL (13.5-16.0)
[2024-05-29 08:54] LABS: Partial Thromboplastin Time 56.4 Seconds (22.0-36.0)
[2024-05-29] MEDS: BUMETANIDE INJ 0.25 MG/ML VIAL 4 ML 1 MG IVP (09:39)
[2024-05-29] MEDS: SENNA TABLET 1 TAB PO (09:39)
[2024-05-29 09:43] LABS: Alanine Aminotransferase < 7 U/L (10-49); Albumin, Serum 2.9 gm/dL (3.4-4.8); Albumin/Globulin Ratio 0.8 (1.2-2.2); Alkaline Phosphatase 91 U/L (46-116); Anion Gap 12 (7-16); Aspartate Amino Transferase 12 U/L (0-34); BUN/Creatinine Ratio 37 Ratio (12-20); Bilirubin,Total 0.5 mg/dL (0.3-1.2); Blood Urea Nitrogen 82 mg/dL (9-23); Calcium 8.7 mg/dL (8.3-10.6); Calcium (Corrected) 9.6 mg/dL (8.5-10.1); Carbon Dioxide 23.1 mMol/L (20.0-31.0); Chloride 99 mMol/L (98-107); Creatinine (Component) 2.2 mg/dL (0.6-1.3); Estimated Creatinine Clearance 30.2 mL/min (>60); Globulin 3.6 gm/dL (2.3-3.5); Glucose 153 mg/dL (74-106); Osmolality,Calculated 295 (275-295); Potassium 3.8 mMol/L (3.4-5.1); Sodium 134 mMol/L (136-145); Total Protein 6.5 gm/dL (5.7-8.2); eGFR 32 See Note
[2024-05-29 09:59] LABS: Troponin I 0.079 ng/mL (0.0-0.045)
[2024-05-29] MEDS: POTASSIUM CHL 10 mEq IVPB 10 MEQ/100 ML BAG 100 MEQ IV (10:30)
[2024-05-29] MEDS: INSULIN LISPRO (AdmeLOG) 1 UNIT/0.01 ML UNIT SC (11:44)
[2024-05-29 13:04] LABS: Magnesium 2.5 mg/dL (1.6-2.6)
--- NOTE | 2024-05-29 13:29 | ESPR_ITS ---
<Statement entered by Sandra Jaramillo MD - 05/29/24 15:31> Patient was seen and examined at bedside. Overnight patient reported that we had some mild chest pressure, that he reported that his blood pressure was in the 90s and was to give [id number] mL of IV fluids bolus. EKG was done showed sinus rhythm with multiple PVCs, serum troponin was 0.095, and down trended to 0.079.. No concern for heart attack at this time. His lactic acid continues to downtrend now at 3.1, blood pressure stable at 97/60, pulse rate of 75, respiratory rate of 22. Talked with the cardiology team they recommended to start the patient on p.o. amiodarone as soon as we finish the amiodarone drip. Echo was done yesterday and showed ejection fraction of 10 to 50% with apical wall motion abnormalities. Patient heart rate at this time rate controlled, patient was already on heparin since yesterday. Because of the significant HFrEF we will increase the patient Bumex to 2 mg IV twice daily with close monitoring of kidney functions will also contact cardiology team for possible LifeVest to prevent sudden cardiac . So far as kidney function is improving a serum creatinine of 2.1. Regarding his sepsis secondary to the osteomyelitis the general surgeon Dr. Chauhan recommended possible BKA under nerve block at the patient was not cleared for general anesthesia. - Patient's plan and care discussed with my attending, Dr. Tiffanie Jaramillo MD Internal Medicine PGY-2 Documentation for date of: 05/29/24 Subjective Subjective Interval history: Lactic acid downtrended from 3.9-3.1 overnight. Patient was mildly hypotensive at 98/64. Night team gave 250cc bolus of IVF. Patient also reports feeling anxious overnight and feeling some chest pressure that resolved. Patient states that he is ready for surgery whenever it is deemed safe. He refused his morning insulin and blood draws. Patient denies any other complaints at the moment. Exam Vital Signs Temp Pulse Resp BP Pulse Ox O2 Del Method O2 Flow Rate 96.7 F L 64 14 106/78 100 Nasal Cannula 1 05/29/24 12:00 05/29/24 12:00 05/29/24 12:00 05/29/24 12:00 05/29/24 12:00 05/29/24 12:00 05/29/24 12:00 Narrative Exam General: Well appearing, well nourished, in no distress HEENT: Normocephalic, atraumatic, conjunctiva clear, sclera non-icteric, EOM intact Heart: regular rate and rhythm, no murmur Lungs: Rales on b/l PLL, no wheezes Abdomen:soft, nontender, non distended Extremities: L BKA; ulcer on right lateral foot and amputated 5 digits with necrotic ulcer superimposed, tender to palpation, erythematous; amputated third fourth fifth digit of right hand Neurologic: Moves all extremities spontaneously,A&Ox3 Psychiatric: Cooperative, normal mood and affect. Objective Labs 05/29/24 07:30 05/29/24 07:30 Labs: Laboratory Results - last 24 hr 05/28/24 05/28/24 05/28/24 12:10 13:32 15:05 WBC 19.6 H RBC 3.61 L Hgb 8.7 L Hct 28.7 L MCV 80 MCH 24.1 L MCHC 30.3 L RDW Std Deviation 51.1 H Plt Count 463 H Neut % (Auto) 88 H Lymph % (Auto) 5 L [place] % (Auto) 4 Eos % (Auto) 1 Baso % (Auto) 0 Neut # (Auto) 17.2 H Lymph # (Auto) 0.9 L [place] # (Auto) 0.8 Eos # (Auto) 0.2 Baso # (Auto) 0.0 Immature Gran # (Auto) 0.46 H Absolute Nucleated RBC 0.17 H Immature Gran % 2 H Nucleated RBC % 1 H APTT Sodium 132 L Potassium 3.9 Chloride 96 L Carbon Dioxide 25.0 Anion Gap 11 BUN 84 H Creatinine 2.3 H Estim Creat Clear Calc 26.3 L eGFR 31 L BUN/Creatinine Ratio 37 H Glucose 261 H D Calculated Osmolality 299 H Lactic Acid 4.2 H* 3.9 H Calcium 8.6 Corrected Calcium 9.1 Phosphorus 4.0 Magnesium 2.5 Total Bilirubin 0.5 AST < 8 ALT < 7 L Alkaline Phosphatase 105 Troponin I 0.084 H* Total Protein 7.2 Albumin 3.4 Globulin 3.8 H Albumin/Globulin Ratio 0.9 L Beta-Hydroxybutyrate/Acetoacetate 05/28/24 05/28/24 05/28/24 16:11 17:55 21:06 WBC RBC Hgb Hct MCV MCH MCHC RDW Std Deviation Plt Count Neut % (Auto) Lymph % (Auto) [place] % (Auto) Eos % (Auto) Baso % (Auto) Neut # (Auto) Lymph # (Auto) [place] # (Auto) Eos # (Auto) Baso # (Auto) Immature Gran # (Auto) Absolute Nucleated RBC Immature Gran % Nucleated RBC % APTT 27.3 Sodium Potassium Chloride Carbon Dioxide Anion Gap BUN Creatinine Estim Creat Clear Calc eGFR BUN/Creatinine Ratio Glucose Calculated Osmolality Lactic Acid 3.7 H 3.1 H Calcium Corrected Calcium Phosphorus Magnesium Total Bilirubin AST ALT Alkaline Phosphatase Troponin I 0.095 H* Total Protein Albumin Globulin Albumin/Globulin Ratio Beta-Hydroxybutyrate/Acetoacetate 05/28/24 05/29/24 23:40 07:30 WBC 23.8 H RBC 3.20 L Hgb 7.9 L Hct 25.4 L MCV 79 L MCH 24.7 L MCHC 31.1 RDW Std Deviation 51.2 H Plt Count 465 H Neut % (Auto) 89 H Lymph % (Auto) 4 L [place] % (Auto) 4 Eos % (Auto) 1 Baso % (Auto) 0 Neut # (Auto) 21.2 H Lymph # (Auto) 1.0 [place] # (Auto) 0.9 H Eos # (Auto) 0.3 Baso # (Auto) 0.0 Immature Gran # (Auto) 0.37 H Absolute Nucleated RBC 0.08 H Immature Gran % 2 H Nucleated RBC % 0 APTT 42.8 H D 56.4 H D Sodium 134 L Potassium 3.8 Chloride 99 Carbon Dioxide 23.1 Anion Gap 12 BUN 82 H Creatinine 2.2 H Estim Creat Clear Calc 30.2 L eGFR 32 L BUN/Creatinine Ratio 37 H Glucose 153 H D Calculated Osmolality 295 Lactic Acid Calcium 8.7 Corrected Calcium 9.6 Phosphorus Magnesium 2.5 Total Bilirubin 0.5 AST 12 ALT < 7 L Alkaline Phosphatase 91 Troponin I 0.079 H* Total Protein 6.5 Albumin 2.9 L D Globulin 3.6 H Albumin/Globulin Ratio 0.8 L Beta-Hydroxybutyrate/Acetoacetate 1.2 H Quality Measures Quality Measures VTE prophylaxis Advance care planning discussed with:: patient and spouse Assessment & Plan Assessment Current Active Medications: Generic Name Dose Route Start Last Admin Trade Name Freq PRN Reason Stop Dose Admin Acetaminophen 650 mg 05/28/24 04:05 Acetaminophen 325 Mg Tablet PO 06/27/24 04:04 Q6H PRN Pain 1-3 and/or Fever >100.1 Amiodarone HCl 200 mg 05/29/24 21:00 Amiodarone Hcl 200 Mg Tablet PO 06/28/24 20:59 BID KENNY Atorvastatin Calcium 80 mg 05/29/24 04:50 05/29/24 05:39 Atorvastatin Calcium 20 Mg Tablet PO 06/28/24 04:49 Not Given HS KENNY Bumetanide 1 mg 05/28/24 20:54 05/29/24 09:39 Bumetanide Inj 0.25 Mg/Ml Vial 4 Ml IVP 06/27/24 08:59 1 mg BID KENNY Administration Dextrose 25 ml 05/28/24 04:12 Dextrose 50%-Water Inj 50 Ml Syringe IV 06/27/24 04:11 Q15MIN PRN BG 50-70 responsive npo pt Dextrose 50 ml 05/28/24 04:12 Dextrose 50%-Water Inj 50 Ml Syringe IV 06/27/24 04:11 Q15MIN PRN BG <50 OR BG <70 & pt unresponsive Glucagon 1 mg 05/28/24 04:12 Glucagon Inj 1 Mg Vial IM Q15MIN PRN BG <70, and no IV access Amiodarone HCl/Dextrose 360 mg in 200 mls @ 16.667 mls/hr 05/28/24 18:07 05/29/24 07:42 Nexterone Ivpb IV 05/29/24 18:06 16.667 mls/hr .Q12H KENNY Administration Heparin Sodium/Dextrose 25,000 unit in 250 mls @ 6.971 mls/hr 05/28/24 15:45 05/29/24 09:30 Heparin In D5w Ivpb IV 06/11/24 15:44 14 units/kg/hr .Q24H KENNY 8.132 mls/hr Titration Protocol 12 UNITS/KG/HR Piperacillin Sod/Tazobactam 100 mls @ 200 mls/hr 05/28/24 22:00 05/29/24 05:47 Sod 4.5 gm/ Sodium Chloride IV 06/04/24 21:59 200 mls/hr Q8HR KENNY Administration Protocol Vancomycin/Sodium Chloride 750 mg in 150 mls @ 120 mls/hr 05/30/24 10:00 Vancomycin/Ns 750 Mg Ivpb IV 06/06/24 09:59 QDAY@1000 [facility] Insulin Glargine 15 unit 05/28/24 09:00 05/29/24 09:42 Insulin Glargine (Lantus) 5 Unit/0.05 Ml (Per 5 Units) SC 06/27/24 08:59 Not Given BID [facility] Insulin Human Lispro 0 unit 05/28/24 17:00 05/29/24 11:44 Insulin Lispro (Admelog) 1 Unit/0.01 Ml Unit SC 06/27/24 16:59 8 unit ACHS [facility] Administration Protocol Ondansetron HCl 4 mg 05/28/24 04:05 05/28/24 19:21 Ondansetron Inj 2 Mg/Ml Inj 2 Ml IV 06/27/24 04:04 4 mg Q6H PRN Administration NAUSEA OR VOMITING Protocol Pharmacy Consult 1 each 05/28/24 11:07 Pharmacy Renal Dose Adjustment 1 Ea XX 06/27/24 11:06 PRN PRN CONSULT Pharmacy Consult 1 each 05/29/24 06:38 Vancomycin Pharmacy To Dose 1 Each Each IV 06/27/24 08:59 QDAY PRN PROTOCOL Sennosides 1 tab 05/28/24 09:00 05/29/24 09:39 Senna Tablet PO 06/27/24 08:59 1 tab QDAY [facility] Administration Protocol Plan 63-year-old male with past medical history of CAD, status post PCI with LAD stents, essential hypertension, hyperlipidemia, CKD stage IIIb, insulin- dependent type 2 diabetes (last A1c 9.0), HFrEF (EF 30 to 35%), osteomyelitis with past surgeries and amputations (left BKA, right hand 3rd-5th finger) secondary to diabetic foot ulcer presenting with shortness of breath requiring starting home oxygen will be admitted for Sepsis 2/2 osteomyelitis, CHF exacerbation and workup of new dysphagia-like symptoms. #Sepsis 2/2 #Osteomyelitis of the right foot WBC 20.7 HR 150s Elevated creatinine 2.5, lactic 4.2, CRP 17.5 ESR 103 XR shows osteomyelitis amputated distal first and second metatarsals, air in the soft tissue Plant Operator/Shift Supervisor Dr. Henson Per family, patient has been on several oral antibiotics in the past month but still has some oozing and purulence in the area Lactic 4.2->3.9-> 3.1 Received 30cc/kg bolus dose in the ED for sepsis. Held IVF afterwards due to concern for fluid overload in setting of acute on chronic HFrEF exacerbation Dr. Rudolph consulting with anesthesia for possible peripheral nerve block instead of general anesthesia Plan: R BKA per Dr. Rudolph Will start the patient on IV Zosyn (renally dosed) and Vancomycin(renally dosed) Wound culture ordered Wound care referral General Surgery, Dr. Rudolph, has been consulted appreciate recommendations #Afib with RVR #new onset Afib #Troponinemia Patient denies hx of Afib; troponin elevated at 0.095->downtrending Rapid response called @ 1140 05/28 for Afib with RVR K 4, Mg 2.4 Phos 4.5 Cardiology consulted; appreciate recommendations Plan: Amiodarone drip->Amiodarone 200mg BID Metoprolol XL as BP permits K>4; Mg >2 Heparin drip #Acute on chronic HFrEF exacerbation (EF 10-15%) #Acute hypoxic/hypercapnic respiratory failure #History of coronary artery disease s/p stent placement #Cardiorenal syndrome Patient has extensive past medical history of cardiac disease; heart failure along with CAD and follows Dr. Velazquez, cardiology, outpatient Apparently last visit was about a month ago and apparently his heart failure is about the same has not improved or worsened Echo from 01/2024 shows: Mildly dilated LV. Normal wall thickness. Estimated EF 30-35 %. Global LV systolic function is severely decreased. RV not well visualized. [id number] MR. Echo 06/03: EF 10-15% Grade III DD akinetic apex with severe global hypokinesis, moderate PAH, MR, dilated cardiomyopathy Cardiology consulted; appreciate recommendations Plan: IV Lasix 40mg and Bumex 1mg x1 Strict I's and O's Daily weight Oxygen supplementation as needed Fluid restriction 1500 mL daily Bumex 2mg BID #JADIEL on CKD stage IIIb #Prerenal Azotemia #Hyponatremia Baseline 1.8(05/04) Given 2 L of IV fluids in the ED; then 40mg Lasix by admitting team Prerenal azotemia likely secondary to poor p.o. intake/dehydration versus CHF exacerbation and vascular congestion Will monitor renal function; needs diuresis for HFrEF and antibiotics for osteomyelitis but concern for damage to kidneys Plan: Renally dose medication Avoid nephrotoxic agents Monitor sodium correction, Fluid restriction as above #New dysphagia #Poor p.o. intake Patient has been having poor p.o. intake for the past several days Per , patient has dysphagia to both solid and liquid which is a new symptom Apparently, the patient gargles and has some remnant after eating or drinking fluids Plan: Speech eval ordered->recommends dysphagia 2 with mildly thick liquids Possible GI consult #Insulin-dependent type 2 diabetes #Hyperglycemia A1C 10.2; Lantus 15u BID at home BG 600+ in ED, BHB 1.7 Plan: Lantus 15u BID Sliding scale insulin resistant every 6 hours #Possible superimposed aspiration pneumonia? #Leukocytosis Patient presenting with acute shortness of breath requiring home oxygen use Patient has been on oral antibiotics for the past several weeks Patient currently in the ED on 2 to 3 L nasal cannula which is not usual for him Chest x-ray does show bilateral pneumonia versus vascular congestion; in setting of dysphagia possible aspiration Plan: Started patient on broad-spectrum IV antibiotic, Zosyn (renally dosed)/Vancomycin(renally dosed) Follow-up on blood cultures #Microcytic anemia Patient has had anemia since being admitted sometime in January Hemoglobin has consistently been below 10 since that time with no improvement Iron panel and ferritin from the past anemia of chronic disease versus less likely iron deficiency anemia Differentials include: As stated above along with sideroblastic anemia, lead poisoning Patient is not on any iron supplementation Plan: Follow-up outpatient and referred to assembler body Hospital Management: Lines: PIV Diet: Dysphagia 1 Bowel: Senna GI prophylaxis: Protonix DVT prophylaxis: Heparin drip Dispo: Telemetry Code: Full The patient's plan was discussed with attending Dr. Moreno and senior residents Dr. Montanez and Dr. Ella Johns, DO PGY1 Internal Medicine Attending Provider Attestation/Addendum I have examined the patient, reviewed labs and imaging findings, discussed the case with the resident(s), and reviewed entered orders. I agree with the plan of care as outlined in this note, with these additional summaries/recommendations: Patient is a 63-year-old male with a extensive past medical history including uncontrolled diabetes mellitus type 2, HFrEF (EF 30%), CAD with LAD stents, primary hypertension, hyperlipidemia, CKD stage IIIb, and history of osteomyelitis with multiple amputations in the past presented to [facility] emergency department on 05/28/2024 with chief complaint of shortness of breath. Patient seen at bedside. No acute overnight events. Patient is continued on amiodarone gtt for new onset atrial fibrillation with rapid ventricular response. Patient now back in sinus rhythm with rate trending in the 80s. We will transition to oral amiodarone this afternoon. Cardiology following. [id number] score 5 points indicating 7.2% stroke risk per year. Has bled score 3 points indicating 5.8% risk of major GI bleed. Continue heparin gtt for elevated [id number] score with aPTT target of 60 to 80 seconds. Echocardiogram completed which revealed severe systolic dysfunction, EF 10 to 15%, akinetic apex with severe global hypokinesis. Continue preload reduction with fluid restriction and Bumex. Hold starting afterload reduction with EMERALD/ARB or Entresto given patient's renal function. Avoid starting neurohormonal blockade during acute exacerbation. Patient was also found to have sepsis secondary to osteomyelitis and general surgery was consulted and patient will require BKA. Patient is high risk for surgery and possibly not a candidate for general anesthesia and surgery exploring possible nerve block. Significant leukocytosis still present. Continue IV Zosyn and vancomycin for now. Pharmacy to dose vancomycin and follow-up trough level. Blood cultures preliminarily showing no growth at 24 hours. Patient was also found to have JADIEL on CKD stage IIIb. We will continue IV diuresis and monitor for improvement as likely etiology for JADIEL is cardiorenal syndrome. If no improvement we will consult nephrology. Blood sugars continue to improve with basal and bolus insulin. Target blood sugar of 140-180 while hospitalized. Repeat hematology and chemistry panel in AM. Prognosis guarded. Dr. Moreno
--- NOTE | 2024-05-29 15:00 | PC.SS ---
SS met with pt and at bedside regarding SNF choices SS provided with [facility] SN[facility]: [facility] [address] [place], [place] [phone] [facility] 05/28/2024 15:46 05/28/2024 15:30 Insurance out of network (1) [facility] [address], [place] [id number] [facility] 05/29/2024 09:00 05/28/2024 15:30 Insurance out of network (1) [facility] [address] [place], [place] [phone] [facility] Yes 05/28/2024 17:03 05/28/2024 15:30 We can accept this patient. Thank you for your referral (2) [facility] [address] [place] [address] [facility] 05/28/2024 15:39 05/28/2024 15:30 Other (1) [facility] [address] [place] [address] [facility] Yes 05/28/2024 15:31 05/28/2024 15:30 We can accept this patient. Thank you for your referral (2) [facility] [address] [place], [place] [phone] [facility]
[2024-05-29 15:17] LABS: Cholesterol 125 mg/dL (132-200); HDL Cholesterol 21 mg/dL (40-60); LDL Cholesterol,Calculated 83 mg/dL (0-130); Triglycerides 104 mg/dL (30-150)
--- NOTE | 2024-05-29 16:21 | ESPR_ITS ---
Documentation for date of: 05/29/24 Subjective Subjective Interval history: Patient was seen at bedside this morning. No overnight events. Patient at this point in time and is high risk for surgery given his multiple episodes of PVCs which is likely due to his heart failure which predisposes him to arrhythmias. Patient continues Amio drip and start amiodarone 200 mg twice daily Recommend to start metoprolol XL or beta blockers if blood pressure allows Continue heparin drip for a total of 48 hours Patient is not a candidate for any invasive cardiac intervention at this time given multiple comorbidities, but he can be treated medically with goal-directed medical therapy. Potassium 3.8 and low magnesium today recommend to keep potassium magnesium above 4 and to respectively to avoid any further arrhythmias. Echo on 05/28/2024 had the following findings Mildy dilated LV size. Severe systolic dysfunction. Estimated EF 10-15% Grade III DD with Akinetic apex along with severe global hypokensis. Normal RV size. Moderate RV systolic dysfunction. Estiamted RVSP 50mmHg. Atleast moderate PAH Modeate MR. Mild to moderate TR, Mild AI and PI. Mild biatrial dilation with IVC mildly dilated. Overall picture of dilated cardiomyopathy Exam Vital Signs Temp Pulse Resp BP Pulse Ox O2 Del Method O2 Flow Rate 96.7 F L 64 14 106/78 100 Nasal Cannula 1 05/29/24 12:00 05/29/24 12:00 05/29/24 12:00 05/29/24 12:00 05/29/24 12:00 05/29/24 12:00 05/29/24 12:00 Narrative Exam General: A/O x3, ill-appearing, thin. Eyes: PERRL, EOMI. Anicteric, vision grossly intact. Ears: No ear pain, no ear discharge, Hearing grossly intact. Nose: No nasal discharge. Mouth/Throat: Dry mucous membranes, no redness, no lesions. Neck: Neck supple, non-tender, no cervical lymphadenopathy. Lungs: Clear JOHN to auscultation and percussion, No accessory muscle use. Cardio: Normal S1/S2, regular rhythm, no murmurs, no JVD Abdomen: Firm without distension, non-tender, peristalsis present, no guarding or rebound. Extremities: R upper 3-5 digit amputation, L BKA, R foot covered by dressing, no peripheral edema , non-tender. Skin: No rashes, no lesions, warm to touch. Neuro: No focal neurological deficits. Motor and sensory intact. Psych: Cooperative, appropriate mood and effect. Objective Labs 05/29/24 07:30 05/29/24 07:30 Labs: Laboratory Results - last 24 hr 05/28/24 05/28/24 05/28/24 16:11 17:55 21:06 WBC RBC Hgb Hct MCV MCH MCHC RDW Std Deviation Plt Count Neut % (Auto) Lymph % (Auto) [place] % (Auto) Eos % (Auto) Baso % (Auto) Neut # (Auto) Lymph # (Auto) [place] # (Auto) Eos # (Auto) Baso # (Auto) Immature Gran # (Auto) Absolute Nucleated RBC Immature Gran % Nucleated RBC % APTT 27.3 Sodium Potassium Chloride Carbon Dioxide Anion Gap BUN Creatinine Estim Creat Clear Calc eGFR BUN/Creatinine Ratio Glucose Lactic Acid 3.7 H 3.1 H Calculated Osmolality Calcium Corrected Calcium Magnesium Total Bilirubin AST ALT Alkaline Phosphatase Troponin I 0.095 H* Total Protein Albumin Globulin Albumin/Globulin Ratio Triglycerides Cholesterol LDL Cholesterol, Calc HDL Cholesterol Cholesterol/HDL Ratio Beta-Hydroxybutyrate/Acetoacetate 05/28/24 05/29/24 23:40 07:30 WBC 23.8 H RBC 3.20 L Hgb 7.9 L Hct 25.4 L MCV 79 L MCH 24.7 L MCHC 31.1 RDW Std Deviation 51.2 H Plt Count 465 H Neut % (Auto) 89 H Lymph % (Auto) 4 L [place] % (Auto) 4 Eos % (Auto) 1 Baso % (Auto) 0 Neut # (Auto) 21.2 H Lymph # (Auto) 1.0 [place] # (Auto) 0.9 H Eos # (Auto) 0.3 Baso # (Auto) 0.0 Immature Gran # (Auto) 0.37 H Absolute Nucleated RBC 0.08 H Immature Gran % 2 H Nucleated RBC % 0 APTT 42.8 H D 56.4 H D Sodium 134 L Potassium 3.8 Chloride 99 Carbon Dioxide 23.1 Anion Gap 12 BUN 82 H Creatinine 2.2 H Estim Creat Clear Calc 30.2 L eGFR 32 L BUN/Creatinine Ratio 37 H Glucose 153 H D Lactic Acid Calculated Osmolality 295 Calcium 8.7 Corrected Calcium 9.6 Magnesium 2.5 Total Bilirubin 0.5 AST 12 ALT < 7 L Alkaline Phosphatase 91 Troponin I 0.079 H* Total Protein 6.5 Albumin 2.9 L D Globulin 3.6 H Albumin/Globulin Ratio 0.8 L Triglycerides 104 Cholesterol 125 L LDL Cholesterol, Calc 83 HDL Cholesterol 21 L Cholesterol/HDL Ratio 6.0 Beta-Hydroxybutyrate/Acetoacetate 1.2 H Quality Measures Quality Measures VTE prophylaxis Advance care planning discussed with:: patient and spouse Assessment & Plan Assessment Current Active Medications: Generic Name Dose Route Start Last Admin Trade Name Freq PRN Reason Stop Dose Admin Acetaminophen 650 mg 05/28/24 04:05 Acetaminophen 325 Mg Tablet PO 06/27/24 04:04 Q6H PRN Pain 1-3 and/or Fever >100.1 Amiodarone HCl 200 mg 05/29/24 21:00 Amiodarone Hcl 200 Mg Tablet PO 06/28/24 20:59 BID KENNY Atorvastatin Calcium 80 mg 05/29/24 04:50 05/29/24 05:39 Atorvastatin Calcium 20 Mg Tablet PO 06/28/24 04:49 Not Given HS KENNY Bumetanide 2 mg 05/29/24 21:00 Bumetanide Inj 0.25 Mg/Ml Vial 4 Ml IVP 06/28/24 20:59 BID KENNY Dextrose 25 ml 05/28/24 04:12 Dextrose 50%-Water Inj 50 Ml Syringe IV 06/27/24 04:11 Q15MIN PRN BG 50-70 responsive npo pt Dextrose 50 ml 05/28/24 04:12 Dextrose 50%-Water Inj 50 Ml Syringe IV 06/27/24 04:11 Q15MIN PRN BG <50 OR BG <70 & pt unresponsive Glucagon 1 mg 05/28/24 04:12 Glucagon Inj 1 Mg Vial IM Q15MIN PRN BG <70, and no IV access Amiodarone HCl/Dextrose 360 mg in 200 mls @ 16.667 mls/hr 05/28/24 18:07 05/29/24 07:42 Nexterone Ivpb IV 05/29/24 18:06 16.667 mls/hr .Q12H KENNY Administration Heparin Sodium/Dextrose 25,000 unit in 250 mls @ 6.971 mls/hr 05/28/24 15:45 05/29/24 09:30 Heparin In D5w Ivpb IV 06/11/24 15:44 14 units/kg/hr .Q24H KENNY 8.132 mls/hr Titration Protocol 12 UNITS/KG/HR Piperacillin Sod/Tazobactam 100 mls @ 200 mls/hr 05/28/24 22:00 05/29/24 13:48 Sod 4.5 gm/ Sodium Chloride IV 06/04/24 21:59 200 mls/hr Q8HR KENNY Administration Protocol Vancomycin/Sodium Chloride 750 mg in 150 mls @ 120 mls/hr 05/30/24 10:00 Vancomycin/Ns 750 Mg Ivpb IV 06/06/24 09:59 QDAY@1000 KENNY Insulin Glargine 15 unit 05/28/24 09:00 05/29/24 09:42 Insulin Glargine (Lantus) 5 Unit/0.05 Ml (Per 5 Units) SC 06/27/24 08:59 Not Given BID [facility] Insulin Human Lispro 0 unit 05/28/24 17:00 05/29/24 11:44 Insulin Lispro (Admelog) 1 Unit/0.01 Ml Unit SC 06/27/24 16:59 8 unit ACHS [facility] Administration Protocol Ondansetron HCl 4 mg 05/28/24 04:05 05/28/24 19:21 Ondansetron Inj 2 Mg/Ml Inj 2 Ml IV 06/27/24 04:04 4 mg Q6H PRN Administration NAUSEA OR VOMITING Protocol Pharmacy Consult 1 each 05/28/24 11:07 Pharmacy Renal Dose Adjustment 1 Ea XX 06/27/24 11:06 PRN PRN CONSULT Pharmacy Consult 1 each 05/29/24 06:38 Vancomycin Pharmacy To Dose 1 Each Each IV 06/27/24 08:59 QDAY PRN PROTOCOL Sennosides 1 tab 05/28/24 09:00 05/29/24 09:39 Senna Tablet PO 06/27/24 08:59 1 tab QDAY KENNY Administration Protocol Plan 63-year-old male with past medical history of CAD s/p stents, HFrEF (10-15%) hypertension, IDDM, hyperlipidemia, left BKA, and 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 1. Acute decompensated systolic heart failure exacerbation (10-15% EF) 2. Sinus tachycardia with NSVT 3. Dilated Cardiomyopathy 4. CAD s/p stents -Patient is currently having multiple runs of NSVT, PVC's likely in the setting of severe heart failure as well as ischemia from prior [place] -Patient will most likely benefit from ICD if he continues to develop NSVT if EF does not improve after atleast 3 months of GDMT. -Echo on 05/28/2024 had the following findings Mildy dilated LV size. Severe systolic dysfunction. Estimated EF 10-15% Grade III DD with Akinetic apex along with severe global hypokensis. Normal RV size. Moderate RV systolic dysfunction. Estiamted RVSP 50mmHg. Atleast moderate PAH Modeate MR. Mild to moderate TR, Mild AI and PI. Mild biatrial dilation with IVC mildly dilated. Overall picture of dilated cardiomyopathy Plan: -Continue Amiodarone drip and start Amiodarone PO 200mg BID. -Continue diuresis with bumex 2mg BID -Continue high intensity statin and aspirin -Can continue heparin drip for a total of 48 hours -Keep potassium and magnesium above 4 and 2 to avoid any arrhythmias 4. Essential hypertension 5. NSTEMI type II -Patient's blood pressure is on the low end likely in the setting of severe heart failure. -Troponins peaked at 0.095 and downtrended Plan: -Recommend no further troponins -Recommend to hold off on antihypertensive medication for now given hypotension and sepsis -Consider midodrine or pressor support if patient cannot sustain a MAP 65<. 6. Sepsis 2/2 osteomyelitis 7. osteomyelitis R foot 8. IDDM -Patient is high risk for surgery given multiple comorbidities including heart failure with ejection fraction of 10-15%. -Continue current management as per primary care team 9. JADIEL on CKD stage 3b 10. Hyperlipidemia -Continue current management as per primary care team Continue rest of management as per primary team. We are grateful to be able to participate in Mr. Galdamez's care. Thank you for the consult Plan of care discussed with attending Dye Beck Reel Operator, Dr. Scotty Solomon MD PGY-1 Attending Provider Attestation/Addendum I have personally seen and examined the patient separately on the above date of service and discussed the plan of care with the resident. I reviewed the resident Dr. Holguin consultation progress note and agree with the resident findings and plan in the note above and have also edited the documentation to reflect my findings and plan. Chaz Fajardo M.D. Interventional Cardiology
[2024-05-29 16:46] LABS: Partial Thromboplastin Time 45.3 Seconds (22.0-36.0)
[2024-05-29] MEDS: HEPARIN SOD INJ 5000 UNIT/ML VIAL 1950 UNIT IV (18:09)
[2024-05-29] MEDS: AMIODARONE HCL 200 MG TABLET PO (21:30)
[2024-05-29] MEDS: BUMETANIDE INJ 0.25 MG/ML VIAL 4 ML 2 MG IVP (21:31)
[2024-05-29] MEDS: ATORVASTATIN CALCIUM 20 MG TABLET 80 MG PO (21:31)
[2024-05-29] MEDS: ONDANSETRON INJ 2 MG/ML INJ 2 ML 4 MG IV (21:48)
[2024-05-29] MEDS: Heparin/D5w 25K 250 ML Ivpb 25,000 UNIT/250 ML BAG 9.294 UNIT IV (23:44)
[2024-05-30] VITALS (12 sets, daily range): BP systolic 96–104; BP diastolic 61–74; PULSE 60–70; RESP 17–22; TEMP 36.1–36.3; O2SAT 98–100; BMI 22.7
[2024-05-30 02:20] LABS: Partial Thromboplastin Time 70.4 Seconds (22.0-36.0)
[2024-05-30] MEDS: PIPER/TAZO INJ 4.5 GM in SODIUM CHLORIDE 0.9% (P) 100 ML IV ×3 (05:32→21:22)
[2024-05-30 08:23] LABS: Basophils % (Auto) 0 % (0-2.5); Eosinophils # (Auto) 0.2 Thou/mm3 (0.0-0.5); Eosinophils % (Auto) 1 % (0-10); Hematocrit 28.2 % (41.0-53.0); Immature Granulocytes % (Auto) 1 % (0-0); Immature Granulocytes Auto 0.31 Thou/mm3 (0.00-0.00); Lymphocytes # (Auto) 0.7 Thou/mm3 (1.0-4.8); Lymphocytes % (Auto) 3 % (10-50); Mean Corpuscular HGB Conc 30.9 g/dl (31.0-37.0); Mean Corpuscular Volume 78 fL (80-100); Monocytes # (Auto) 0.9 Thou/mm3 (0.0-0.8); Monocytes % (Auto) 4 % (0-12); Neutrophils # (Auto) 20.2 Thou/mm3 (1.8-7.7); Neutrophils % (Auto) 91 % (37-80); Nucleated Red Blood Cell # 0.03 Thou/mm3 (0.00-0.00); Nucleated Red Blood Cell % 0 /100 WBC (0); Platelet Count 505 Thou/mm3 (140-440); RDW Standard Deviation 52.6 fL (35.1-43.9); Red Blood Count 3.62 Miln/mm3 (4.50-5.90); White Blood Count 22.3 Thou/mm3 (3.8-10.6)
[2024-05-30 08:39] LABS: Hemoglobin 8.7 g/dL (13.5-16.0)
--- NOTE | 2024-05-30 09:00 | PC.WOUND ---
Rounded with Dr. Rudolph, at beside. Discussion of plan for right foot, risks and complications informed. agreeable to surgical procedure
[2024-05-30 09:04] LABS: Alanine Aminotransferase < 7 U/L (10-49); Albumin, Serum 3.1 gm/dL (3.4-4.8); Albumin/Globulin Ratio 0.9 (1.2-2.2); Alkaline Phosphatase 86 U/L (46-116); Anion Gap 13 (7-16); Aspartate Amino Transferase < 10 U/L (0-34); BUN/Creatinine Ratio 33 Ratio (12-20); Bilirubin,Total 0.6 mg/dL (0.3-1.2); Blood Urea Nitrogen 76 mg/dL (9-23); Calcium 8.3 mg/dL (8.3-10.6); Carbon Dioxide 24.3 mMol/L (20.0-31.0); Chloride 98 mMol/L (98-107); Creatinine (Component) 2.3 mg/dL (0.6-1.3); Estimated Creatinine Clearance 28.9 mL/min (>60); Globulin 3.6 gm/dL (2.3-3.5); Glucose 151 mg/dL (74-106); Magnesium 2.2 mg/dL (1.6-2.6); Osmolality,Calculated 295 (275-295); Potassium 3.4 mMol/L (3.4-5.1); Sodium 135 mMol/L (136-145); Total Protein 6.7 gm/dL (5.7-8.2); eGFR 31 See Note
--- NOTE | 2024-05-30 09:07 | ESPR_ITS ---
Documentation for date of: 05/30/24 Subjective Subjective Brief History: Patient has had the chronic osteomyelitis and peripheral vascular disease. He has noticed right foot infection recently with a dry gangrene. He also was found to have coronary artery disease. He developed SVT and was transferred to telemetry this afternoon. Patient has had a B-K amputation on the left side last year Narrative: Patient's condition is essentially unchanged. Exam Vital Signs Temp Pulse Resp BP Pulse Ox O2 Del Method O2 Flow Rate 97.0 F 66 17 104/74 99 Nasal Cannula 1 05/30/24 04:00 05/30/24 04:00 05/30/24 04:00 05/30/24 04:00 05/30/24 04:00 05/30/24 04:00 05/30/24 04:00 His vital signs are normal Results Results: Laboratory Laboratory Narrative: Patient has increasing leukocytosis Assessment & Plan Assessment Additional comments: Impression: Ischemia of the right foot with gangrene Severe congestive heart failure with ejection fraction of 15% Plan Plan: I had a discussion with the patient's and mention to him that he is a t higher risk for surgery. I told her that he may not make it postoperatively and there is good chance of mortality in the postoperativeperiod. This may happen even if he survives the surgery under regional block. I will ask Dr. Nice to see if he could perform a femoral block and then proceed with surgery. Patient's family is very much interested in taking care of this problem by surgery.
[2024-05-30 09:10] LABS: INR 1.2 (0.9-1.3); Partial Thromboplastin Time 79.2 Seconds (22.0-36.0); Prothrombin Time 12.7 Seconds (9.0-12.2)
[2024-05-30] MEDS: BUMETANIDE INJ 0.25 MG/ML VIAL 4 ML 2 MG IVP ×2 (09:25→21:04)
[2024-05-30] MEDS: METOPROLOL SUCCINATE XL 25 MG TABCR 12.5 MG PO (09:26)
[2024-05-30] MEDS: AMIODARONE HCL 200 MG TABLET PO ×2 (09:26→21:05)
[2024-05-30] MEDS: SENNA TABLET 1 TAB PO (09:27)
[2024-05-30 10:34] LABS: Lactate (Lactic Acid) 1.1 mMol/L (0.4-2.0)
--- NOTE | 2024-05-30 10:35 | PD.RESPRO ---
Documentation for date of: 05/30/24 Subjective Subjective Interval history: Patient was seen at bedside this morning. No overnight events. Patient at this point in time and is high risk for surgery given his multiple episodes of PVCs which is likely due to his heart failure which predisposes him to arrhythmias. Patient continues on amiodarone 200 mg twice daily Recommend to continue metoprolol XL and titrate if blood pressure allows Continue heparin drip for a total of 48 hours and can stop heparin drip 6 hours prior to any surgery. Patient is not a candidate for any invasive cardiac intervention at this time given multiple comorbidities, but he can be treated medically with goal-directed medical therapy. Potassium 3.4 and magnesium 2.2 today recommend to keep potassium magnesium above 4 and to respectively to avoid any further arrhythmias. Patient is a high risk candidate for surgery under general anesthesia Echo on 05/28/2024 had the following findings Mildy dilated LV size. Severe systolic dysfunction. Estimated EF 10-15% Grade III DD with Akinetic apex along with severe global hypokensis. Normal RV size. Moderate RV systolic dysfunction. Estiamted RVSP 50mmHg. Atleast moderate PAH Modeate MR. Mild to moderate TR, Mild AI and PI. Mild biatrial dilation with IVC mildly dilated. Overall picture of dilated cardiomyopathy Exam Vital Signs Temp Pulse Resp BP Pulse Ox O2 Del Method O2 Flow Rate 97.0 F 70 21 H 100/65 100 Nasal Cannula 3 05/30/24 08:00 05/30/24 09:26 05/30/24 08:00 05/30/24 09:26 05/30/24 08:00 05/30/24 08:00 05/30/24 08:00 Narrative Exam General: A/O x3, ill-appearing, thin. Eyes: PERRL, EOMI. Anicteric, vision grossly intact. Ears: No ear pain, no ear discharge, Hearing grossly intact. Nose: No nasal discharge. Mouth/Throat: Dry mucous membranes, no redness, no lesions. Neck: Neck supple, non-tender, no cervical lymphadenopathy. Lungs: Clear JOHN to auscultation and percussion, No accessory muscle use. Cardio: Normal S1/S2, regular rhythm, no murmurs, no JVD Abdomen: Firm without distension, non-tender, peristalsis present, no guarding or rebound. Extremities: R upper 3-5 digit amputation, L BKA, R foot covered by dressing, no peripheral edema , non-tender. Skin: No rashes, no lesions, warm to touch. Neuro: No focal neurological deficits. Motor and sensory intact. Psych: Cooperative, appropriate mood and effect. Objective Labs 05/30/24 08:00 05/30/24 08:00 Labs: Laboratory Results - last 24 hr 05/29/24 05/29/24 05/30/24 07:30 15:44 01:23 WBC RBC Hgb Hct MCV MCH MCHC RDW Std Deviation Plt Count Neut % (Auto) Lymph % (Auto) [place] % (Auto) Eos % (Auto) Baso % (Auto) Neut # (Auto) Lymph # (Auto) [place] # (Auto) Eos # (Auto) Baso # (Auto) Immature Gran # (Auto) Absolute Nucleated RBC Immature Gran % Nucleated RBC % PT INR APTT 45.3 H D 70.4 H D Sodium Potassium Chloride Carbon Dioxide Anion Gap BUN Creatinine Estim Creat Clear Calc eGFR BUN/Creatinine Ratio Glucose Calculated Osmolality Calcium Corrected Calcium Magnesium 2.5 Total Bilirubin AST ALT Alkaline Phosphatase Total Protein Albumin Globulin Albumin/Globulin Ratio Triglycerides 104 Cholesterol 125 L LDL Cholesterol, Calc 83 HDL Cholesterol 21 L Cholesterol/HDL Ratio 6.0 05/30/24 08:00 WBC 22.3 H RBC 3.62 L Hgb 8.7 L Hct 28.2 L MCV 78 L MCH 24.0 L MCHC 30.9 L RDW Std Deviation 52.6 H Plt Count 505 H D Neut % (Auto) 91 H Lymph % (Auto) 3 L [place] % (Auto) 4 Eos % (Auto) 1 Baso % (Auto) 0 Neut # (Auto) 20.2 H Lymph # (Auto) 0.7 L [place] # (Auto) 0.9 H Eos # (Auto) 0.2 Baso # (Auto) 0.0 Immature Gran # (Auto) 0.31 H Absolute Nucleated RBC 0.03 H Immature Gran % 1 H Nucleated RBC % 0 PT 12.7 H INR 1.2 APTT 79.2 H Sodium 135 L Potassium 3.4 Chloride 98 Carbon Dioxide 24.3 Anion Gap 13 BUN 76 H Creatinine 2.3 H Estim Creat Clear Calc 28.9 L eGFR 31 L BUN/Creatinine Ratio 33 H Glucose 151 H Calculated Osmolality 295 Calcium 8.3 Corrected Calcium 9.0 Magnesium 2.2 Total Bilirubin 0.6 AST < 10 ALT < 7 L Alkaline Phosphatase 86 Total Protein 6.7 Albumin 3.1 L Globulin 3.6 H Albumin/Globulin Ratio 0.9 L Triglycerides Cholesterol LDL Cholesterol, Calc HDL Cholesterol Cholesterol/HDL Ratio Quality Measures Quality Measures VTE prophylaxis Advance care planning discussed with:: patient Assessment & Plan Assessment Current Active Medications: Generic Name Dose Route Start Last Admin Trade Name Freq PRN Reason Stop Dose Admin Acetaminophen 650 mg 05/28/24 04:05 Acetaminophen 325 Mg Tablet PO 06/27/24 04:04 Q6H PRN Pain 1-3 and/or Fever >100.1 Amiodarone HCl 200 mg 05/29/24 21:00 05/30/24 09:26 Amiodarone Hcl 200 Mg Tablet PO 06/28/24 20:59 200 mg BID KENNY Administration Atorvastatin Calcium 80 mg 05/29/24 04:50 05/29/24 21:31 Atorvastatin Calcium 20 Mg Tablet PO 06/28/24 04:49 80 mg HS KENNY Administration Bumetanide 2 mg 05/29/24 21:00 05/30/24 09:25 Bumetanide Inj 0.25 Mg/Ml Vial 4 Ml IVP 06/28/24 20:59 2 mg BID KENNY Administration Dextrose 25 ml 05/28/24 04:12 Dextrose 50%-Water Inj 50 Ml Syringe IV 06/27/24 04:11 Q15MIN PRN BG 50-70 responsive npo pt Dextrose 50 ml 05/28/24 04:12 Dextrose 50%-Water Inj 50 Ml Syringe IV 06/27/24 04:11 Q15MIN PRN BG <50 OR BG <70 & pt unresponsive Glucagon 1 mg 05/28/24 04:12 Glucagon Inj 1 Mg Vial IM Q15MIN PRN BG <70, and no IV access Heparin Sodium/Dextrose 25,000 unit in 250 mls @ 6.971 mls/hr 05/28/24 15:45 05/30/24 02:29 Heparin In D5w Ivpb IV 06/11/24 15:44 16 units/kg/hr .Q24H KENNY 9.294 mls/hr Titration Protocol 12 UNITS/KG/HR Piperacillin Sod/Tazobactam 100 mls @ 200 mls/hr 05/28/24 22:00 05/30/24 05:32 Sod 4.5 gm/ Sodium Chloride IV 06/04/24 21:59 200 mls/hr Q8HR KENNY Administration Protocol Vancomycin/Sodium Chloride 750 mg in 150 mls @ 120 mls/hr 05/30/24 10:00 Vancomycin/Ns 750 Mg Ivpb IV 06/06/24 09:59 QDAY@1000 KENNY Potassium Chloride 10 meq in 100 mls @ 100 mls/hr 05/30/24 10:15 Kcl Ivpb IV 05/30/24 11:14 Q1H ONE Insulin Glargine 15 unit 05/28/24 09:00 05/30/24 09:27 Insulin Glargine (Lantus) 5 Unit/0.05 Ml (Per 5 Units) SC 06/27/24 08:59 Not Given BID KENNY Insulin Human Lispro 0 unit 05/28/24 17:00 05/30/24 07:18 Insulin Lispro (Admelog) 1 Unit/0.01 Ml Unit SC 06/27/24 16:59 Not Given ACHS [facility] Protocol Metoprolol Succinate 12.5 mg 05/30/24 09:00 05/30/24 09:26 Metoprolol Succinate Xl 25 Mg Tabcr PO 06/29/24 08:59 12.5 mg QDAY KENNY Administration Ondansetron HCl 4 mg 05/28/24 04:05 05/29/24 21:48 Ondansetron Inj 2 Mg/Ml Inj 2 Ml IV 06/27/24 04:04 4 mg Q6H PRN Administration NAUSEA OR VOMITING Protocol Pharmacy Consult 1 each 05/28/24 11:07 Pharmacy Renal Dose Adjustment 1 Ea XX 06/27/24 11:06 PRN PRN CONSULT Pharmacy Consult 1 each 05/29/24 06:38 Vancomycin Pharmacy To Dose 1 Each Each IV 06/27/24 08:59 QDAY PRN PROTOCOL Sennosides 1 tab 05/28/24 09:00 05/30/24 09:27 Senna Tablet PO 06/27/24 08:59 1 tab QDAY KENNY Administration Protocol Plan 63-year-old male with past medical history of CAD s/p stents, HFrEF (10-15%) hypertension, IDDM, hyperlipidemia, left BKA, and 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 1. Acute decompensated systolic heart failure exacerbation (10-15% EF) 2. Sinus tachycardia with NSVT 3. Dilated Cardiomyopathy 4. CAD s/p stents -Patient is currently having multiple runs of NSVT, PVC's likely in the setting of severe heart failure as well as ischemia from prior [place] -Patient will most likely benefit from ICD if he continues to develop NSVT if EF does not improve after atleast 3 months of GDMT. -Echo on 05/28/2024 had the following findings Mildy dilated LV size. Severe systolic dysfunction. Estimated EF 10-15% Grade III DD with Akinetic apex along with severe global hypokensis. Normal RV size. Moderate RV systolic dysfunction. Estiamted RVSP 50mmHg. Atleast moderate PAH Modeate MR. Mild to moderate TR, Mild AI and PI. Mild biatrial dilation with IVC mildly dilated. Overall picture of dilated cardiomyopathy Plan: -Continue Amiodarone PO 200mg BID. -Continue diuresis with bumex 2mg BID -Continue high intensity statin and aspirin -Continue heparin drip for a total of 48 hours and can stop heparin drip 6 hours prior to any surgery. -Keep potassium and magnesium above 4 and 2 to avoid any arrhythmias 4. Essential hypertension 5. NSTEMI type II -Patient's blood pressure is on the low end likely in the setting of severe heart failure. -Troponins peaked at 0.095 and downtrended Plan: -Recommend no further troponins -Recommend to hold off on antihypertensive medication for now given hypotension and sepsis -Consider midodrine or pressor support if patient cannot sustain a MAP 65<. 6. Sepsis 2/2 osteomyelitis 7. osteomyelitis R foot 8. IDDM -Patient is high risk for surgery given multiple comorbidities including heart failure with ejection fraction of 10-15%. -Continue current management as per primary care team 9. JADIEL on CKD stage 3b 10. Hyperlipidemia -Continue current management as per primary care team Continue rest of management as per primary team. We are grateful to be able to participate in Mr. Galdamez's care. Thank you for the consult Plan of care discussed with attending Home Health Physical Therapist, Dr. Scotty Solomon MD PGY-1 Attending Provider Attestation/Addendum I have personally seen and examined the patient separately on the above date of service and discussed the plan of care with the resident. I reviewed the resident Dr. Holguin consultation progress note and agree with the resident findings and plan in the note above and have also edited the documentation to reflect my findings and plan. Chaz Fajardo M.D. Interventional Cardiology
[2024-05-30] MEDS: VANCOMYCIN/NS 750 MG IVPB 750 MG/150 ML BAG 120 MG IV (10:41)
[2024-05-30] MEDS: POTASSIUM CHL 10 mEq IVPB 10 MEQ/100 ML BAG 75 MEQ IV (10:47)
--- NOTE | 2024-05-30 11:36 | PC.SS ---
Follow up note: Pt is possible below the knee amputation. Pt has been accepted to [facility].
--- NOTE | 2024-05-30 13:08 | PD.RESPRO ---
Documentation for date of: 05/30/24 Subjective Subjective Interval history: No acute events overnight. Patient denies nausea, vomiting, chest pain, shortness of breath. Patient was able to eat a few bites for lunch but denies appetite. Denies coughing or trouble swallowing those few bites. Exam Vital Signs Temp Pulse Resp BP Pulse Ox O2 Del Method O2 Flow Rate 96.9 F 68 19 104/68 100 Nasal Cannula 3 05/30/24 12:00 05/30/24 12:00 05/30/24 12:00 05/30/24 12:00 05/30/24 12:00 05/30/24 12:00 05/30/24 12:00 Narrative Exam General: Well appearing, well nourished, in no distress HEENT: Normocephalic, atraumatic, conjunctiva clear, sclera non-icteric, EOM intact Heart: regular rate and rhythm, no murmur Lungs: Rales on b/l PLL-improved, no wheezes Abdomen:soft, nontender, non distended Extremities: L BKA; ulcer on right lateral foot and amputated 5 digits with necrotic ulcer superimposed, tender to palpation, erythematous; amputated third fourth fifth digit of right hand Neurologic: Moves all extremities spontaneously,A&Ox3 Psychiatric: Cooperative, normal mood and affect. Objective Labs 06/01/24 05:00 06/01/24 05:00 Labs: Laboratory Results - last 24 hr 05/29/24 05/29/24 05/30/24 07:30 15:44 01:23 WBC RBC Hgb Hct MCV MCH MCHC RDW Std Deviation Plt Count Neut % (Auto) Lymph % (Auto) [place] % (Auto) Eos % (Auto) Baso % (Auto) Neut # (Auto) Lymph # (Auto) [place] # (Auto) Eos # (Auto) Baso # (Auto) Immature Gran # (Auto) Absolute Nucleated RBC Immature Gran % Nucleated RBC % PT INR APTT 45.3 H D 70.4 H D Sodium Potassium Chloride Carbon Dioxide Anion Gap BUN Creatinine Estim Creat Clear Calc eGFR BUN/Creatinine Ratio Glucose Calculated Osmolality Lactic Acid Calcium Corrected Calcium Magnesium Total Bilirubin AST ALT Alkaline Phosphatase Total Protein Albumin Globulin Albumin/Globulin Ratio Triglycerides 104 Cholesterol 125 L LDL Cholesterol, Calc 83 HDL Cholesterol 21 L Cholesterol/HDL Ratio 6.0 05/30/24 05/30/24 08:00 10:22 WBC 22.3 H RBC 3.62 L Hgb 8.7 L Hct 28.2 L MCV 78 L MCH 24.0 L MCHC 30.9 L RDW Std Deviation 52.6 H Plt Count 505 H D Neut % (Auto) 91 H Lymph % (Auto) 3 L [place] % (Auto) 4 Eos % (Auto) 1 Baso % (Auto) 0 Neut # (Auto) 20.2 H Lymph # (Auto) 0.7 L [place] # (Auto) 0.9 H Eos # (Auto) 0.2 Baso # (Auto) 0.0 Immature Gran # (Auto) 0.31 H Absolute Nucleated RBC 0.03 H Immature Gran % 1 H Nucleated RBC % 0 PT 12.7 H INR 1.2 APTT 79.2 H Sodium 135 L Potassium 3.4 Chloride 98 Carbon Dioxide 24.3 Anion Gap 13 BUN 76 H Creatinine 2.3 H Estim Creat Clear Calc 28.9 L eGFR 31 L BUN/Creatinine Ratio 33 H Glucose 151 H Calculated Osmolality 295 Lactic Acid 1.1 Calcium 8.3 Corrected Calcium 9.0 Magnesium 2.2 Total Bilirubin 0.6 AST < 10 ALT < 7 L Alkaline Phosphatase 86 Total Protein 6.7 Albumin 3.1 L Globulin 3.6 H Albumin/Globulin Ratio 0.9 L Triglycerides Cholesterol LDL Cholesterol, Calc HDL Cholesterol Cholesterol/HDL Ratio Quality Measures Quality Measures VTE prophylaxis Advance care planning discussed with:: patient and spouse Assessment & Plan Assessment Current Active Medications: Generic Name Dose Route Start Last Admin Trade Name Freq PRN Reason Stop Dose Admin Acetaminophen 650 mg 05/28/24 04:05 Acetaminophen 325 Mg Tablet PO 06/27/24 04:04 Q6H PRN Pain 1-3 and/or Fever >100.1 Amiodarone HCl 200 mg 05/29/24 21:00 05/30/24 09:26 Amiodarone Hcl 200 Mg Tablet PO 06/28/24 20:59 200 mg BID KENNY Administration Atorvastatin Calcium 80 mg 05/29/24 04:50 05/29/24 21:31 Atorvastatin Calcium 20 Mg Tablet PO 06/28/24 04:49 80 mg HS KENNY Administration Bumetanide 2 mg 05/29/24 21:00 05/30/24 09:25 Bumetanide Inj 0.25 Mg/Ml Vial 4 Ml IVP 06/28/24 20:59 2 mg BID KENNY Administration Dextrose 25 ml 05/28/24 04:12 Dextrose 50%-Water Inj 50 Ml Syringe IV 06/27/24 04:11 Q15MIN PRN BG 50-70 responsive npo pt Dextrose 50 ml 05/28/24 04:12 Dextrose 50%-Water Inj 50 Ml Syringe IV 06/27/24 04:11 Q15MIN PRN BG <50 OR BG <70 & pt unresponsive Glucagon 1 mg 05/28/24 04:12 Glucagon Inj 1 Mg Vial IM Q15MIN PRN BG <70, and no IV access Heparin Sodium/Dextrose 25,000 unit in 250 mls @ 6.971 mls/hr 05/28/24 15:45 05/30/24 02:29 Heparin In D5w Ivpb IV 06/11/24 15:44 16 units/kg/hr .Q24H KENNY 9.294 mls/hr Titration Protocol 12 UNITS/KG/HR Piperacillin Sod/Tazobactam 100 mls @ 200 mls/hr 05/28/24 22:00 05/30/24 05:32 Sod 4.5 gm/ Sodium Chloride IV 06/04/24 21:59 200 mls/hr Q8HR KENNY Administration Protocol Vancomycin/Sodium Chloride 750 mg in 150 mls @ 120 mls/hr 05/30/24 10:00 05/30/24 10:41 Vancomycin/Ns 750 Mg Ivpb IV 06/06/24 09:59 120 mls/hr QDAY@1000 KENNY Administration Insulin Glargine 15 unit 05/28/24 09:00 05/30/24 09:27 Insulin Glargine (Lantus) 5 Unit/0.05 Ml (Per 5 Units) SC 06/27/24 08:59 Not Given BID KENNY Insulin Human Lispro 0 unit 05/28/24 17:00 05/30/24 07:18 Insulin Lispro (Admelog) 1 Unit/0.01 Ml Unit SC 06/27/24 16:59 Not Given ACHS [facility] Protocol Metoprolol Succinate 12.5 mg 05/30/24 09:00 05/30/24 09:26 Metoprolol Succinate Xl 25 Mg Tabcr PO 06/29/24 08:59 12.5 mg QDAY KENNY Administration Ondansetron HCl 4 mg 05/28/24 04:05 05/29/24 21:48 Ondansetron Inj 2 Mg/Ml Inj 2 Ml IV 06/27/24 04:04 4 mg Q6H PRN Administration NAUSEA OR VOMITING Protocol Pharmacy Consult 1 each 05/28/24 11:07 Pharmacy Renal Dose Adjustment 1 Ea XX 06/27/24 11:06 PRN PRN CONSULT Pharmacy Consult 1 each 05/29/24 06:38 Vancomycin Pharmacy To Dose 1 Each Each IV 06/27/24 08:59 QDAY PRN PROTOCOL Sennosides 1 tab 05/28/24 09:00 05/30/24 09:27 Senna Tablet PO 06/27/24 08:59 1 tab QDAY KENNY Administration Protocol Plan 63-year-old male with past medical history of CAD, status post PCI with LAD stents, essential hypertension, hyperlipidemia, CKD stage IIIb, insulin-dependent type 2 diabetes (last A1c 9.0), HFrEF (EF 30 to 35%), osteomyelitis with past surgeries and amputations (left BKA, right hand 3rd-5th finger) secondary to diabetic foot ulcer presenting with shortness of breath requiring starting home oxygen will be admitted for Sepsis 2/2 osteomyelitis, CHF exacerbation and workup of new dysphagia-like symptoms. 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 Henson Per family, patient has been on several oral antibiotics in the past month but still has some oozing and purulence in the area Lactic 4.2->3.9-> 3.1 Received 30cc/kg bolus dose in the ED for sepsis. Held IVF afterwards due to concern for fluid overload in setting of acute on chronic HFrEF exacerbation Dr. Rudolph consulting with anesthesia for possible peripheral nerve block instead of general anesthesia Plan: R BKA per Dr. Rudolph Will start the patient on IV Zosyn (renally dosed) and Vancomycin(renally dosed) Wound culture ordered Wound care referral General Surgery, Dr. Rudolph, has been consulted appreciate recommendations #Afib with RVR #new onset Afib #Troponinemia Patient denies hx of Afib; troponin elevated at 0.095->downtrending Rapid response called @ 1140 05/28 for Afib with RVR K 4, Mg 2.4 Phos 4.5 Cardiology consulted; appreciate recommendations Plan: Amiodarone drip->Amiodarone 200mg BID Metoprolol XL as BP permits K>4; Mg >2 Heparin drip #Acute on chronic HFrEF exacerbation (EF 10-15%) #Acute hypoxic/hypercapnic respiratory failure #History of coronary artery disease s/p stent placement #Cardiorenal syndrome Patient has extensive past medical history of cardiac disease; heart failure along with CAD and follows Dr. Velazquez, cardiology, outpatient Apparently last visit was about a month ago and apparently his heart failure is about the same has not improved or worsened Echo from 01/2024 shows: Mildly dilated LV. Normal wall thickness. Estimated EF 30-35 %. Global LV systolic function is severely decreased. RV not well visualized. [id number] MR. Echo 06/03: EF 10-15% Grade III DD akinetic apex with severe global hypokinesis, moderate PAH, MR, dilated cardiomyopathy Cardiology consulted; appreciate recommendations Plan: Strict I's and O's Daily weight Oxygen supplementation as needed Fluid restriction 1500 mL daily Bumex 2mg BID #JADIEL on CKD stage IIIb #Prerenal Azotemia #Hyponatremia Baseline 1.8(05/04) Given 2 L of IV fluids in the ED; then 40mg Lasix by admitting team Prerenal azotemia likely secondary to poor p.o. intake/dehydration versus CHF exacerbation and vascular congestion Will monitor renal function; needs diuresis for HFrEF and antibiotics for osteomyelitis but concern for damage to kidneys Plan: Renally dose medication Avoid nephrotoxic agents Monitor sodium correction, Fluid restriction as above #New dysphagia #Poor p.o. intake Patient has been having poor p.o. intake for the past several days Per , patient has dysphagia to both solid and liquid which is a new symptom Apparently, the patient gargles and has some remnant after eating or drinking fluids Plan: Speech eval ordered->recommends dysphagia 2 with mildly thick liquids Possible GI consult #Insulin-dependent type 2 diabetes #Hyperglycemia A1C 10.2; Lantus 15u BID at home BG 600+ in ED, BHB 1.7 Plan: Lantus 15u BID Sliding scale insulin resistant every 6 hours #Possible superimposed aspiration pneumonia? #Leukocytosis Patient presenting with acute shortness of breath requiring home oxygen use Patient has been on oral antibiotics for the past several weeks Patient currently in the ED on 2 to 3 L nasal cannula which is not usual for him Chest x-ray does show bilateral pneumonia versus vascular congestion; in setting of dysphagia possible aspiration Plan: Started patient on broad-spectrum IV antibiotic, Zosyn (renally dosed)/Vancomycin(renally dosed) Follow-up on blood cultures #Microcytic anemia Patient has had anemia since being admitted sometime in January Hemoglobin has consistently been below 10 since that time with no improvement Iron panel and ferritin from the past anemia of chronic disease versus less likely iron deficiency anemia Plan: Follow-up outpatient and 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 Moreno and senior residents Dr. Montanez and Dr. Ella Johns, DO PGY1 Internal Medicine Senior resident attestation: Patient evaluated and examined at the bedside, plan of care discussed with rest of the team including my attending physician, except as noted. Patient is a 63-year-old male who came in with past medical history of HFrEF, EF 10 to 15%, CAD s/p PCI, CKD stage IIIb, poorly controlled diverticulitis, came in with osteomyelitis and diabetic foot infection, met sepsis criteria, was found to be hypotensive, and heart rate in the 140s, A-fib with RVR, likely new onset in the setting of sepsis and osteomyelitis, patient was started on amiodarone drip and heparin drip, patient converted back to sinus rhythm but kept having paroxysmal bouts of A-fib RVR, currently patient is in sinus rhythm, patient had his surgery, below-knee amputation done today, heparin drip was discontinued for prior to surgery, will be restarted 12 hours postsurgery. Will continue to monitor for bleeding and postop complications. Continue p.o. amiodarone for A-fib RVR. Tarik PGY2 Attending Provider Attestation/Addendum I have examined the patient, reviewed labs and imaging findings, discussed the case with the resident(s), and reviewed entered orders. I agree with the plan of care as outlined in this note, with these additional summaries/recommendations: Patient is a 63-year-old male with a extensive past medical history including uncontrolled diabetes mellitus type 2, HFrEF (EF 30%), CAD with LAD stents, primary hypertension, hyperlipidemia, CKD stage IIIb, and history of osteomyelitis with multiple amputations in the past presented to [facility] emergency department on 05/28/2024 with chief complaint of shortness of breath. Patient seen at bedside. No acute overnight events. Patient went for right leg BKA today for severe osteomyelitis and gangrene of the right foot. Patient was deemed high risk given his cardiac history for surgery although appears to have tolerated the procedure well. Continue pain management and IV antibiotics for now. During hospitalization patient developed new onset atrial fibrillation with RVR. Now in sinus rhythm and continue amiodarone 200 mg p.o. twice daily. Previously on heparin gtt. for elevated [id number] score and will discuss with cardiology about transitioning to NOAC. Patient has severe underlying heart failure. Echocardiogram completed which revealed severe systolic dysfunction, EF 10 to 15%, akinetic apex with severe global hypokinesis. Continue preload reduction with fluid restriction and Bumex. Hold starting afterload reduction with EMERALD/ARB or Entresto given patient's renal function and soft blood pressure. Avoid starting neurohormonal blockade during acute exacerbation. We will continue to institute goal directed medical therapy as tolerated. Patient was also found to have JADIEL on CKD stage IIIb. We will continue IV diuresis and monitor for improvement as likely etiology for JADIEL is cardiorenal syndrome. If no improvement we will consult nephrology. Blood sugars continue to improve with basal and bolus insulin. Target blood sugar of 140-180 while hospitalized. Repeat hematology and chemistry panel in AM. Prognosis guarded. Dr. Moreno
[2024-05-30] MEDS: ATORVASTATIN CALCIUM 20 MG TABLET 80 MG PO (21:05)
[2024-05-31] VITALS (20 sets, daily range): BP systolic 86–103; BP diastolic 59–72; PULSE 61–74; RESP 13–24; TEMP 35.9–37; O2SAT 95–100
[2024-05-31] MEDS: PIPER/TAZO INJ 4.5 GM in SODIUM CHLORIDE 0.9% (P) 100 ML IV (05:11)
[2024-05-31 07:05] LABS: Partial Thromboplastin Time 36.7 Seconds (22.0-36.0)
[2024-05-31 07:08] LABS: Basophils % (Auto) 0 % (0-2.5); Eosinophils # (Auto) 0.2 Thou/mm3 (0.0-0.5); Eosinophils % (Auto) 1 % (0-10); Hematocrit 27.8 % (41.0-53.0); Immature Granulocytes % (Auto) 1 % (0-0); Immature Granulocytes Auto 0.23 Thou/mm3 (0.00-0.00); Lymphocytes # (Auto) 0.7 Thou/mm3 (1.0-4.8); Lymphocytes % (Auto) 4 % (10-50); Mean Corpuscular HGB Conc 31.3 g/dl (31.0-37.0); Mean Corpuscular Hemoglobin 24.2 pg (25.0-35.0); Mean Corpuscular Volume 77 fL (80-100); Monocytes # (Auto) 0.8 Thou/mm3 (0.0-0.8); Monocytes % (Auto) 4 % (0-12); Neutrophils # (Auto) 17.6 Thou/mm3 (1.8-7.7); Neutrophils % (Auto) 90 % (37-80); Nucleated Red Blood Cell % 0 /100 WBC (0); Platelet Count 447 Thou/mm3 (140-440); RDW Standard Deviation 52.3 fL (35.1-43.9); White Blood Count 19.5 Thou/mm3 (3.8-10.6)
[2024-05-31 07:13] LABS: Alanine Aminotransferase < 7 U/L (10-49); Albumin/Globulin Ratio 0.8 (1.2-2.2); Alkaline Phosphatase 81 U/L (46-116); Anion Gap 10 (7-16); Aspartate Amino Transferase < 8 U/L (0-34); BUN/Creatinine Ratio 30 Ratio (12-20); Bilirubin,Total 0.5 mg/dL (0.3-1.2); Blood Urea Nitrogen 68 mg/dL (9-23); Calcium 8.2 mg/dL (8.3-10.6); Chloride 99 mMol/L (98-107); Creatinine (Component) 2.3 mg/dL (0.6-1.3); Globulin 3.6 gm/dL (2.3-3.5); Glucose 173 mg/dL (74-106); Hemoglobin 8.7 g/dL (13.5-16.0); Osmolality,Calculated 297 (275-295); Potassium 2.9 mMol/L (3.4-5.1); Sodium 137 mMol/L (136-145); Total Protein 6.6 gm/dL (5.7-8.2); eGFR 31 See Note
[2024-05-31] MEDS: MORPHINE SULF INJ 10 MG/ML VIAL IVP (07:14)
[2024-05-31] MEDS: POTASSIUM CHL 10 mEq IVPB 10 MEQ/100 ML BAG 100 MEQ IV ×3 (07:53→13:52)
--- NOTE | 2024-05-31 09:17 | ESPR_ITS ---
Documentation for date of: 05/31/24 Subjective Subjective Interval history: No acute events overnight. Patient was being rolled back to the OR this morning when I went to go check on him. Patient has no questions and denies any other complaints. Exam Vital Signs Temp Pulse Resp BP Pulse Ox O2 Del Method O2 Flow Rate 97.1 F 62 24 H 102/65 99 Nasal Cannula 2 05/31/24 08:00 05/31/24 08:00 05/31/24 08:00 05/31/24 08:00 05/31/24 08:00 05/31/24 08:00 05/31/24 08:00 Narrative Exam General: Well appearing, well nourished, in no distress HEENT: Normocephalic, atraumatic, conjunctiva clear, sclera non-icteric, EOM intact Heart: regular rate and rhythm, no murmur Lungs: Rales on b/l PLL-improved, no wheezes Abdomen:soft, nontender, non distended Extremities: L BKA; ulcer on right lateral foot and amputated 5 digits with necrotic ulcer superimposed, tender to palpation, erythematous; amputated third fourth fifth digit of right hand Neurologic: Moves all extremities spontaneously,A&Ox3 Psychiatric: Cooperative, normal mood and affect. Objective Labs 06/01/24 05:00 06/01/24 05:00 Labs: Laboratory Results - last 24 hr 05/30/24 05/31/24 10:22 06:15 WBC 19.5 H RBC 3.60 L Hgb 8.7 L Hct 27.8 L MCV 77 L MCH 24.2 L MCHC 31.3 RDW Std Deviation 52.3 H Plt Count 447 H D Neut % (Auto) 90 H Lymph % (Auto) 4 L [place] % (Auto) 4 Eos % (Auto) 1 Baso % (Auto) 0 Neut # (Auto) 17.6 H Lymph # (Auto) 0.7 L [place] # (Auto) 0.8 Eos # (Auto) 0.2 Baso # (Auto) 0.0 Immature Gran # (Auto) 0.23 H Absolute Nucleated RBC 0.00 Immature Gran % 1 H Nucleated RBC % 0 APTT 36.7 H D Sodium 137 Potassium 2.9 L D Chloride 99 Carbon Dioxide 28.0 Anion Gap 10 BUN 68 H Creatinine 2.3 H Estim Creat Clear Calc 28.0 L eGFR 31 L BUN/Creatinine Ratio 30 H Glucose 173 H Calculated Osmolality 297 H Lactic Acid 1.1 Calcium 8.2 L Corrected Calcium 9.0 Magnesium 2.0 Total Bilirubin 0.5 AST < 8 ALT < 7 L Alkaline Phosphatase 81 Total Protein 6.6 Albumin 3.0 L Globulin 3.6 H Albumin/Globulin Ratio 0.8 L Blood Type AB Positive Antibody Screen NEGATIVE Blood Bank Wristband ID Yes Quality Measures Quality Measures VTE prophylaxis Advance care planning discussed with:: patient and spouse Assessment & Plan Assessment Current Active Medications: Generic Name Dose Route Start Last Admin Trade Name Freq PRN Reason Stop Dose Admin Acetaminophen 650 mg 05/28/24 04:05 Acetaminophen 325 Mg Tablet PO 06/27/24 04:04 Q6H PRN Pain 1-3 and/or Fever >100.1 Amiodarone HCl 200 mg 05/29/24 21:00 05/30/24 21:05 Amiodarone Hcl 200 Mg Tablet PO 06/28/24 20:59 200 mg BID KENNY Administration Atorvastatin Calcium 80 mg 05/29/24 04:50 05/30/24 21:05 Atorvastatin Calcium 20 Mg Tablet PO 06/28/24 04:49 80 mg HS KENNY Administration Bumetanide 2 mg 05/29/24 21:00 05/30/24 21:04 Bumetanide Inj 0.25 Mg/Ml Vial 4 Ml IVP 06/28/24 20:59 2 mg BID KENNY Administration Dextrose 25 ml 05/28/24 04:12 Dextrose 50%-Water Inj 50 Ml Syringe IV 06/27/24 04:11 Q15MIN PRN BG 50-70 responsive npo pt Dextrose 50 ml 05/28/24 04:12 Dextrose 50%-Water Inj 50 Ml Syringe IV 06/27/24 04:11 Q15MIN PRN BG <50 OR BG <70 & pt unresponsive Glucagon 1 mg 05/28/24 04:12 Glucagon Inj 1 Mg Vial IM Q15MIN PRN BG <70, and no IV access Piperacillin Sod/Tazobactam 100 mls @ 200 mls/hr 05/28/24 22:00 05/31/24 05:11 Sod 4.5 gm/ Sodium Chloride IV 06/04/24 21:59 200 mls/hr Q8HR KENNY Administration Protocol Vancomycin/Sodium Chloride 750 mg in 150 mls @ 120 mls/hr 05/30/24 10:00 05/30/24 10:41 Vancomycin/Ns 750 Mg Ivpb IV 06/06/24 09:59 120 mls/hr QDAY@1000 KENNY Administration Protocol Potassium Chloride 10 meq in 100 mls @ 100 mls/hr 05/31/24 07:28 05/31/24 07:53 Kcl Ivpb IV 05/31/24 11:27 100 mls/hr Q1H KENNY Administration Insulin Glargine 15 unit 05/28/24 09:00 05/30/24 21:04 Insulin Glargine (Lantus) 5 Unit/0.05 Ml (Per 5 Units) SC 06/27/24 08:59 Not Given BID KENNY Insulin Human Lispro 0 unit 05/28/24 17:00 05/30/24 21:03 Insulin Lispro (Admelog) 1 Unit/0.01 Ml Unit SC 06/27/24 16:59 Not Given ACHS [facility] Protocol Metoprolol Succinate 12.5 mg 05/30/24 09:00 05/30/24 09:26 Metoprolol Succinate Xl 25 Mg Tabcr PO 06/29/24 08:59 12.5 mg QDAY KENNY Administration Ondansetron HCl 4 mg 05/28/24 04:05 05/29/24 21:48 Ondansetron Inj 2 Mg/Ml Inj 2 Ml IV 06/27/24 04:04 4 mg Q6H PRN Administration NAUSEA OR VOMITING Protocol Pharmacy Consult 1 each 05/28/24 11:07 Pharmacy Renal Dose Adjustment 1 Ea XX 06/27/24 11:06 PRN PRN CONSULT Pharmacy Consult 1 each 05/29/24 06:38 Vancomycin Pharmacy To Dose 1 Each Each IV 06/27/24 08:59 QDAY PRN PROTOCOL Sennosides 1 tab 05/28/24 09:00 05/30/24 09:27 Senna Tablet PO 06/27/24 08:59 1 tab QDAY KENNY Administration Protocol Plan 63-year-old male with past medical history of CAD, status post PCI with LAD stents, essential hypertension, hyperlipidemia, CKD stage IIIb, insulin- dependent type 2 diabetes (last A1c 9.0), HFrEF (EF 30 to 35%), osteomyelitis with past surgeries and amputations (left BKA, right hand 3rd-5th finger) secondary to diabetic foot ulcer presenting with shortness of breath requiring starting home oxygen will be admitted for Sepsis 2/2 osteomyelitis, CHF exacerbation and workup of new dysphagia-like symptoms. #Sepsis 2/2 #Osteomyelitis of the right foot WBC 20.7 HR 150s Elevated creatinine 2.5, lactic 4.2, CRP 17.5 ESR 103 XR shows osteomyelitis amputated distal first and second metatarsals, air in the soft tissue Business Employment Specialist Dr. Henson Per family, patient has been on several oral antibiotics in the past month but still has some oozing and purulence in the area Lactic 4.2->3.9-> 3.1 Received 30cc/kg bolus dose in the ED for sepsis. Held IVF afterwards due to concern for fluid overload in setting of acute on chronic HFrEF exacerbation Dr. Rudolph consulting with anesthesia for possible peripheral nerve block instead of general anesthesia Plan: R BKA per Dr. Rudolph 05/31/2024 Will start the patient on IV Zosyn (renally dosed) and Vancomycin(renally dosed) Wound culture ordered Wound care referral General Surgery, Dr. Rudolph, has been consulted appreciate recommendations #Afib with RVR #new onset Afib #Troponinemia Patient denies hx of Afib; troponin elevated at 0.095->downtrending Rapid response called @ 1140 05/28 for Afib with RVR K 4, Mg 2.4 Phos 4.5 Cardiology consulted; appreciate recommendations Plan: Amiodarone drip->Amiodarone 200mg BID Metoprolol 12.5mg XL QD as BP permits K>4; Mg >2 Heparin drip->D/C'd before surgery->Will restart 12 hours after surgery #Acute on chronic HFrEF exacerbation (EF 10-15%) #Acute hypoxic/hypercapnic respiratory failure #History of coronary artery disease s/p stent placement #Cardiorenal syndrome Patient has extensive past medical history of cardiac disease; heart failure along with CAD and follows Dr. Velazquez, cardiology, outpatient Apparently last visit was about a month ago and apparently his heart failure is about the same has not improved or worsened Echo from 01/2024 shows: Mildly dilated LV. Normal wall thickness. Estimated EF 30-35 %. Global LV systolic function is severely decreased. RV not well visualized. [id number] MR. Echo 06/03: EF 10-15% Grade III DD akinetic apex with severe global hypokinesis, moderate PAH, MR, dilated cardiomyopathy Cardiology consulted; appreciate recommendations Plan: Strict I's and O's Daily weight Oxygen supplementation as needed Fluid restriction 1500 mL daily Bumex 2mg BID-> holding Bumex due to hypokalemia #JADIEL on CKD stage IIIb #Prerenal Azotemia #Hyponatremia Baseline 1.8(05/04) Given 2 L of IV fluids in the ED; then 40mg Lasix by admitting team Prerenal azotemia likely secondary to poor p.o. intake/dehydration versus CHF exacerbation and vascular congestion Will monitor renal function; needs diuresis for HFrEF and antibiotics for osteomyelitis but concern for damage to kidneys Plan: Renally dose medication Avoid nephrotoxic agents Monitor sodium correction, Fluid restriction as above #New dysphagia #Poor p.o. intake Patient has been having poor p.o. intake for the past several days Per , patient has dysphagia to both solid and liquid which is a new symptom Apparently, the patient gargles and has some remnant after eating or drinking fluids Plan: Speech eval ordered->recommends dysphagia 2 with mildly thick liquids Possible GI consult #Insulin-dependent type 2 diabetes #Hyperglycemia A1C 10.2; Lantus 15u BID at home BG 600+ in ED, BHB 1.7 Plan: Lantus 15u BID Sliding scale insulin resistant every 6 hours #Possible superimposed aspiration pneumonia? #Leukocytosis Patient presenting with acute shortness of breath requiring home oxygen use Patient has been on oral antibiotics for the past several weeks Patient currently in the ED on 2 to 3 L nasal cannula which is not usual for him Chest x-ray does show bilateral pneumonia versus vascular congestion; in setting of dysphagia possible aspiration Plan: Started patient on broad-spectrum IV antibiotic, Zosyn (renally dosed)/Vancomycin(renally dosed) Follow-up on blood cultures #Microcytic anemia Patient has had anemia since being admitted sometime in January Hemoglobin has consistently been below 10 since that time with no improvement Iron panel and ferritin from the past anemia of chronic disease versus less likely iron deficiency anemia Plan: Follow-up outpatient and refer to aircraft electronics technical officer Hospital Management: Lines: PIV Diet: Dysphagia 1 Bowel: Senna GI prophylaxis: Protonix DVT prophylaxis: Heparin drip Dispo: Telemetry Code: Full The patient's plan was discussed with attending Dr. Moreno and senior residents Dr. Montanez and Dr. Ella Johns, DO PGY1 Internal Medicine Senior resident attestation: Patient evaluated and examined at the bedside, plan of care discussed with rest of the team including my attending physician, except as noted. Patient is a 63-year-old male who came in with past medical history of HFrEF, EF 10 to 15%, CAD s/p PCI, CKD stage IIIb, poorly controlled diverticulitis, came in with osteomyelitis and diabetic foot infection, met sepsis criteria, was found to be hypotensive, and heart rate in the 140s, A-fib with RVR, likely new onset in the setting of sepsis and osteomyelitis, patient was started on amiodarone drip and heparin drip, patient converted back to sinus rhythm but kept having paroxysmal bouts of A-fib RVR, currently patient is in sinus rhythm, patient had his surgery, below-knee amputation done today, heparin drip was discontinued for prior to surgery, will be restarted 12 hours postsurgery. Will continue to monitor for bleeding and postop complications. Continue p.o. amiodarone for A-fib RVR. Quresh PGY2 Attending Provider Attestation/Addendum I have examined the patient, reviewed labs and imaging findings, discussed the case with the resident(s), and reviewed entered orders. I agree with the plan of care as outlined in this note, with these additional summaries/recommendations: Patient is a 63-year-old male with a extensive past medical history including uncontrolled diabetes mellitus type 2, HFrEF (EF 30%), CAD with LAD stents, primary hypertension, hyperlipidemia, CKD stage IIIb, and history of osteomyelitis with multiple amputations in the past presented to [facility] department on 05/28/2024 with chief complaint of shortness of breath. Patient seen at bedside. No acute overnight events. Patient went for right leg BKA today for severe osteomyelitis and gangrene of the right foot. Patient was deemed high risk given his cardiac history for surgery although appears to have tolerated the procedure well. Continue pain management and IV antibiotics for now. During hospitalization patient developed new onset atrial fibrillation with RVR. Now in sinus rhythm and continue amiodarone 200 mg p.o. twice daily. Previously on heparin gtt. for elevated [id number] score and will discuss with cardiology about transitioning to NOAC. Patient has severe underlying heart failure. Echocardiogram completed which revealed severe systolic dysfunction, EF 10 to 15%, akinetic apex with severe global hypokinesis. Continue preload reduction with fluid restriction and Bumex. Hold starting afterload reduction with EMERALD/ARB or Entresto given patient's renal function and soft blood pressure. Avoid starting neurohormonal blockade during acute exacerbation. We will continue to institute goal directed medical therapy as tolerated. Patient was also found to have JADIEL on CKD stage IIIb. We will continue IV diuresis and monitor for improvement as likely etiology for JADIEL is cardiorenal syndrome. If no improvement we will consult nephrology. Blood sugars continue to improve with basal and bolus insulin. Target blood sugar of 140-180 while hospitalized. Repeat hematology and chemistry panel in AM. Prognosis guarded. Dr. Moreno
--- NOTE | 2024-05-31 11:02 | SUR.PHASEI ---
pt received from OR in recovery bay 1. pt awake and alert, breathing unlabored on nc 4l. v/s stable. pt dressing to right knee cdi, pt right leg elevated on below. report received from Dr. Nice and Panchito Blanco.
--- NOTE | 2024-05-31 11:24 | PCS.ST ---
NEON MOLDER attempted to see pt for swallow eval. Pt left to surgery. NEON MOLDER will attempt eval tomorrow.
--- NOTE | 2024-05-31 11:28 | PD.SUROPNT ---
Date of Procedure 05/31/24 Pre Op Diagnosis Gangrene of the right foot with severe osteomyelitis Post Op Diagnosis Same Procedure Below-knee amputation of the right leg Findings Patient was found to have excellent bleeding because of the palpable popliteal pulse. Procedure Description After the patient was brought to the operating room regional femoral nerve block was given by Dr. Nice under ultrasound guidance. He was also given sedation. Then the right foot was completely covered with Coban and to keep the necrotic tissue away. Then the leg was prepped with ChloraPrep solution starting from the ankle all the way up to the mid thigh. It was dressed in a sterile manner. Timeout was performed. Then I made incision 12 cm from the tibial tubercle anteriorly and then carried the posterior flap by making it incision shelter the thickness of the leg. It was joined posteriorly. The tibia was divided at the skin level of the muscles were all tied with 2-0 chromic sutures and divided. The fibula was divided 2 cm above the tibia. Tibia was also then trimmed by cutting the sharp edge anteriorly and trimming it with a rasp. Then the tissues were cut tangentially and there was brisk bleeding on the muscles as well as out arteries which were tied with 2-0 chromic. Then after checking for the bleeding points the posterior flap was sutured over the bone with using 2-0 Vicryl for approximation of the fascia. Skin was then closed with interrupted 4-0 nylon stitches and dressing was applied with Adaptic and fluff Kerlix roll. Patient tolerated the procedure well and returned to the operating room in stable condition. Anesthesia regional (Femoral block) Pathology / specimen Other (Amputated right leg and foot) Estimated Blood Loss 100 Condition Stable Disposition PACU Surgeon Jean Pierre Nelson MD Surgical Staff Operation Date: 05/31/24 09:00 Case Staff Anesthesiologist: Yandel Nice RNmaterials engineering technician: Sybil Mirza
--- NOTE | 2024-05-31 11:45 | SUR.PHASEI ---
pt awake and alert, breathing unlabored on 2l nc. v/s stable. pt dressing to right knee cdi. pt right knee elevated on below. report called to Noelle Blanco. pt will be transferred to room at this time.
--- NOTE | 2024-05-31 11:56 | PD.ANESPROG ---
Documentation for date of: 05/31/24 ANESTHESIA NOTE: Patient just had regional anesthesia with R adductor and popliteal nerve blocks and monitored sedation for R BKA. Pre-op, I saw him in 277 with his family. He was alert and calm in bed, on NC O2. He has signficant hx including CAD, Troponemia, CHF (EF 10-15% with PAH), has had SVT and PVC this admission, DM, JADIEL and h/o L BKA. He has been seen by medicine and cardiology, deemed high risk, being given Heparin infusion (stopped at 5 am today), started on Amio. He received one bag of KCl 10 this morning for K 2.9. His SBP have been 80-100s. His low EF and CHF and risks were discussed with them pre-op and all agreed to proceed. He did well intra-op and in PACU where he rested comfortably, VSS, NAD, and was just transferred back to his room. Glu 206. No IV antibiotics given intra-op. He received about 300 cc of LR intra-op and I gave him KCl 10 bag intra-op. Will defer further management to his floor team, including resumption of his Heparin and cardiac care. Yandel Nice MD Anesthesia Progress Note Progress Note Most recent Vital Signs: Last Vital Signs Temp 98.1 F 05/31/24 11:20 Pulse 66 05/31/24 11:20 Resp 13 05/31/24 11:20 BP 96/61 05/31/24 11:20 Pulse Ox 99 05/31/24 11:20 O2 Del Method Nasal Cannula 05/31/24 08:00 O2 Flow Rate 2 05/31/24 11:20
[2024-05-31] MEDS: VANCOMYCIN/NS 750 MG IVPB 750 MG/150 ML BAG 120 MG IV (12:45)
--- NOTE | 2024-05-31 13:29 | PD.RESPRO ---
Documentation for date of: 05/31/24 Subjective Subjective Interval history: Patient was seen at bedside this afternoon. No overnight events. Patient underwent successful R BKA without any cardiac complications. Patient continues on amiodarone 200 mg twice daily Recommend to continue metoprolol XL and titrate if blood pressure allows Completed heparin drip. Patient is not a candidate for any invasive cardiac intervention at this time given multiple comorbidities, but he can be treated medically with goal-directed medical therapy. Potassium 2.9 and magnesium 2 today recommend to keep potassium magnesium above 4 and to respectively to avoid any further arrhythmias. Echo on 05/28/2024 had the following findings Mildly dilated LV size. Severe systolic dysfunction. Estimated EF 10-15% Grade III DD with Akinetic apex along with severe global hypokinesis. Normal RV size. Moderate RV systolic dysfunction. Estimated RVSP 50mmHg. Atleast moderate PAH Moderate MR. Mild to moderate TR, Mild AI and PI. Mild biatrial dilation with IVC mildly dilated. Overall picture of dilated cardiomyopathy Exam Vital Signs Temp Pulse Resp BP Pulse Ox O2 Del Method O2 Flow Rate 96.7 F L 61 15 100/72 99 Room Air 2 05/31/24 12:59 05/31/24 12:59 05/31/24 12:59 05/31/24 12:59 05/31/24 12:59 05/31/24 12:59 05/31/24 11:35 Narrative Exam General: A/O x3, ill-appearing, thin. Eyes: PERRL, EOMI. Anicteric, vision grossly intact. Ears: No ear pain, no ear discharge, Hearing grossly intact. Nose: No nasal discharge. Mouth/Throat: Dry mucous membranes, no redness, no lesions. Neck: Neck supple, non-tender, no cervical lymphadenopathy. Lungs: Clear JOHN to auscultation and percussion, No accessory muscle use. Cardio: Normal S1/S2, regular rhythm, no murmurs, no JVD Abdomen: Firm without distension, non-tender, peristalsis present, no guarding or rebound. Extremities: R upper 3-5 digit amputation, JOHN BKA, R BKA covered by clean dressing, no peripheral edema , non-tender. Skin: No rashes, no lesions, warm to touch. Neuro: No focal neurological deficits. Motor and sensory intact. Psych: Cooperative, appropriate mood and effect. Objective Labs 05/31/24 06:15 05/31/24 16:49 Labs: Laboratory Results - last 24 hr 05/31/24 06:15 WBC 19.5 H RBC 3.60 L Hgb 8.7 L Hct 27.8 L MCV 77 L MCH 24.2 L MCHC 31.3 RDW Std Deviation 52.3 H Plt Count 447 H D Neut % (Auto) 90 H Lymph % (Auto) 4 L [place] % (Auto) 4 Eos % (Auto) 1 Baso % (Auto) 0 Neut # (Auto) 17.6 H Lymph # (Auto) 0.7 L [place] # (Auto) 0.8 Eos # (Auto) 0.2 Baso # (Auto) 0.0 Immature Gran # (Auto) 0.23 H Absolute Nucleated RBC 0.00 Immature Gran % 1 H Nucleated RBC % 0 APTT 36.7 H D Sodium 137 Potassium 2.9 L D Chloride 99 Carbon Dioxide 28.0 Anion Gap 10 BUN 68 H Creatinine 2.3 H Estim Creat Clear Calc 28.0 L eGFR 31 L BUN/Creatinine Ratio 30 H Glucose 173 H Calculated Osmolality 297 H Calcium 8.2 L Corrected Calcium 9.0 Magnesium 2.0 Total Bilirubin 0.5 AST < 8 ALT < 7 L Alkaline Phosphatase 81 Total Protein 6.6 Albumin 3.0 L Globulin 3.6 H Albumin/Globulin Ratio 0.8 L Blood Type AB Positive Antibody Screen NEGATIVE Blood Bank Wristband ID Yes Quality Measures Quality Measures VTE prophylaxis Advance care planning discussed with:: patient Assessment & Plan Assessment Current Active Medications: Generic Name Dose Route Start Last Admin Trade Name Freq PRN Reason Stop Dose Admin Acetaminophen 650 mg 05/28/24 04:05 Acetaminophen 325 Mg Tablet PO 06/27/24 04:04 Q6H PRN Pain 1-3 and/or Fever >100.1 Amiodarone HCl 200 mg 05/29/24 21:00 05/31/24 12:39 Amiodarone Hcl 200 Mg Tablet PO 06/28/24 20:59 Not Given BID KENNY Atorvastatin Calcium 80 mg 05/29/24 04:50 05/30/24 21:05 Atorvastatin Calcium 20 Mg Tablet PO 06/28/24 04:49 80 mg HS KENNY Administration Bumetanide 2 mg 05/29/24 21:00 05/30/24 21:04 Bumetanide Inj 0.25 Mg/Ml Vial 4 Ml IVP 06/28/24 20:59 2 mg BID KENNY Administration Dextrose 25 ml 05/28/24 04:12 Dextrose 50%-Water Inj 50 Ml Syringe IV 06/27/24 04:11 Q15MIN PRN BG 50-70 responsive npo pt Dextrose 50 ml 05/28/24 04:12 Dextrose 50%-Water Inj 50 Ml Syringe IV 06/27/24 04:11 Q15MIN PRN BG <50 OR BG <70 & pt unresponsive Glucagon 1 mg 05/28/24 04:12 Glucagon Inj 1 Mg Vial IM Q15MIN PRN BG <70, and no IV access Vancomycin/Sodium Chloride 750 mg in 150 mls @ 120 mls/hr 05/30/24 10:00 05/31/24 12:45 Vancomycin/Ns 750 Mg Ivpb IV 06/06/24 09:59 120 mls/hr QDAY@1000 KENNY Administration Protocol Insulin Glargine 15 unit 05/28/24 09:00 05/31/24 12:39 Insulin Glargine (Lantus) 5 Unit/0.05 Ml (Per 5 Units) SC 06/27/24 08:59 Not Given BID [facility] Insulin Human Lispro 0 unit 05/28/24 17:00 05/31/24 12:38 Insulin Lispro (Admelog) 1 Unit/0.01 Ml Unit SC 06/27/24 16:59 Not Given ACHS [facility] Protocol Metoprolol Succinate 12.5 mg 05/30/24 09:00 05/31/24 12:40 Metoprolol Succinate Xl 25 Mg Tabcr PO 06/29/24 08:59 Not Given QDAY [facility] Ondansetron HCl 4 mg 05/28/24 04:05 05/29/24 21:48 Ondansetron Inj 2 Mg/Ml Inj 2 Ml IV 06/27/24 04:04 4 mg Q6H PRN Administration NAUSEA OR VOMITING Protocol Pharmacy Consult 1 each 05/28/24 11:07 Pharmacy Renal Dose Adjustment 1 Ea XX 06/27/24 11:06 PRN PRN CONSULT Pharmacy Consult 1 each 05/29/24 06:38 Vancomycin Pharmacy To Dose 1 Each Each IV 06/27/24 08:59 QDAY PRN PROTOCOL Sennosides 1 tab 05/28/24 09:00 05/31/24 12:40 Senna Tablet PO 06/27/24 08:59 Not Given QDAY [facility] Protocol Plan 63-year-old male with past medical history of CAD s/p stents, HFrEF (10-15%) hypertension, IDDM, hyperlipidemia, left BKA, and 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 1. Acute decompensated systolic heart failure exacerbation (10-15% EF) 2. Sinus tachycardia with NSVT 3. Dilated Cardiomyopathy 4. CAD s/p stents -Patient is currently having multiple runs of NSVT, PVC's likely in the setting of severe heart failure as well as ischemia from prior [place] -Patient will most likely benefit from ICD if he continues to develop NSVT if EF does not improve after atleast 3 months of GDMT. -Echo on 05/28/2024 had the following findings Mildly dilated LV size. Severe systolic dysfunction. Estimated EF 10-15% Grade III DD with Akinetic apex along with severe global hypokinesis. Normal RV size. Moderate RV systolic dysfunction. Estimated RVSP 50mmHg. Atleast moderate PAH Moderate MR. Mild to moderate TR, Mild AI and PI. Mild biatrial dilation with IVC mildly dilated. Overall picture of dilated cardiomyopathy Plan: -Continue Amiodarone PO 200mg BID. -Continue diuresis with bumex 2mg BID -Continue metoprolol XL and titrate as BP allows. -Continue high intensity statin and aspirin -Continue heparin drip for a total of 48 hours and can stop heparin drip 6 hours prior to any surgery. -Keep potassium and magnesium above 4 and 2 to avoid any arrhythmias 4. Essential hypertension 5. NSTEMI type II -Patient's blood pressure is on the low end likely in the setting of severe heart failure. -Troponins peaked at 0.095 and downtrended Plan: -Recommend no further troponins -Consider midodrine or pressor support if patient cannot sustain a MAP 65<. 6. Sepsis 2/2 osteomyelitis 7. osteomyelitis R foot 8. IDDM -Patient is high risk for surgery given multiple comorbidities including heart failure with ejection fraction of 10-15%. -Continue current management as per primary care team 9. JADIEL on CKD stage 3b 10. Hyperlipidemia -Continue current management as per primary care team Continue rest of management as per primary team. We are grateful to be able to participate in Mr. Galdamez's care. Thank you for the consult Plan of care discussed with attending Manual Arts Therapy Teacher, Dr. Scotty Solomon MD PGY-1 Attending Provider Attestation/Addendum I have personally seen and examined the patient separately on the above date of service and discussed the plan of care with the resident. I reviewed the resident Dr. Holguin consultation progress note and agree with the resident findings and plan in the note above and have also edited the documentation to reflect my findings and plan. Chaz Fajardo M.D. Interventional Cardiology
[2024-05-31 15:26] LABS: Anion Gap 13 (7-16); Carbon Dioxide 26.2 mMol/L (20.0-31.0); Chloride 99 mMol/L (98-107); Potassium 3.5 mMol/L (3.4-5.1); Sodium 138 mMol/L (136-145)
[2024-05-31] MEDS: AMIODARONE HCL 200 MG TABLET PO ×2 (15:26→20:57)
[2024-05-31] MEDS: METOPROLOL SUCCINATE XL 25 MG TABCR 12.5 MG PO (15:29)
[2024-05-31] MEDS: POTASSIUM CHLORIDE 10% 20 MEQ/15 ML UDC 40 MEQ PO (16:59)
[2024-05-31 17:20] LABS: Anion Gap 14 (7-16); BUN/Creatinine Ratio 27 Ratio (12-20); Blood Urea Nitrogen 63 mg/dL (9-23); Calcium 8.3 mg/dL (8.3-10.6); Carbon Dioxide 22.7 mMol/L (20.0-31.0); Chloride 98 mMol/L (98-107); Creatinine (Component) 2.3 mg/dL (0.6-1.3); Glucose 239 mg/dL (74-106); Osmolality,Calculated 296 (275-295); Potassium 4.5 mMol/L (3.4-5.1); Sodium 135 mMol/L (136-145); eGFR 31 See Note
--- NOTE | 2024-05-31 19:19 | PC.NURSE ---
SPOKE WITH DR. HENAO REGARDING CLARIFICATION OF CONTINUATION OF HEPARIN GTT. PT IS S/P RBKA. PER [facility] NOTES, HEPARIN DRIP TO COMPLETE 48 HOURS. DID RELAY TO THAT HEPARIN DRIP WAS STARTED ON 05/28 AND HAS COMPLETED THE 48HOURS. STATES THAT WE WILL CONTINUE WITH THE HEPARIN DRIP TO START AT 2300.
[2024-05-31] MEDS: BUMETANIDE INJ 0.25 MG/ML VIAL 4 ML 2 MG IVP (20:55)
[2024-05-31] MEDS: INSULIN GLARGINE (Lantus) 5 UNIT/0.05 ML (PER 5 UNITS) 15 UNIT SC (20:56)
[2024-05-31] MEDS: INSULIN LISPRO (AdmeLOG) 1 UNIT/0.01 ML UNIT SC (20:57)
[2024-05-31] MEDS: ATORVASTATIN CALCIUM 20 MG TABLET 80 MG PO (20:58)
[2024-05-31] MEDS: Heparin/D5w 25K 250 ML Ivpb 25,000 UNIT/250 ML BAG 7.406 UNIT IV (23:13)
[2024-05-31] MEDS: MELATONIN 3 MG TABLET PO (23:29)
[2024-06-01] VITALS (11 sets, daily range): BP systolic 92–97; BP diastolic 60–73; PULSE 59–120; RESP 15–22; TEMP 36–36.2; O2SAT 92–100
[2024-06-01] MEDS: ACETAMINOPHEN 325 MG TABLET 650 MG PO (04:34)
[2024-06-01 06:05] LABS: Partial Thromboplastin Time 55.5 Seconds (22.0-36.0)
[2024-06-01 06:20] LABS: Alanine Aminotransferase < 7 U/L (10-49); Albumin, Serum 3.1 gm/dL (3.4-4.8); Albumin/Globulin Ratio 0.9 (1.2-2.2); Alkaline Phosphatase 75 U/L (46-116); Anion Gap 12 (7-16); Aspartate Amino Transferase < 10 U/L (0-34); BUN/Creatinine Ratio 26 Ratio (12-20); Bilirubin,Total 0.4 mg/dL (0.3-1.2); Blood Urea Nitrogen 69 mg/dL (9-23); Calcium 8.1 mg/dL (8.3-10.6); Calcium (Corrected) 8.8 mg/dL (8.5-10.1); Carbon Dioxide 23.9 mMol/L (20.0-31.0); Chloride 99 mMol/L (98-107); Creatinine (Component) 2.7 mg/dL (0.6-1.3); Estimated Creatinine Clearance 22.9 mL/min (>60); Globulin 3.5 gm/dL (2.3-3.5); Glucose 224 mg/dL (74-106); Osmolality,Calculated 297 (275-295); Potassium 4.3 mMol/L (3.4-5.1); Sodium 135 mMol/L (136-145); Total Protein 6.6 gm/dL (5.7-8.2); eGFR 25 See Note
[2024-06-01 06:23] LABS: Basophils % (Auto) 0 % (0-2.5); Eosinophils % (Auto) 0 % (0-10); Hematocrit 23.7 % (41.0-53.0); Immature Granulocytes % (Auto) 1 % (0-0); Immature Granulocytes Auto 0.14 Thou/mm3 (0.00-0.00); Lymphocytes # (Auto) 0.5 Thou/mm3 (1.0-4.8); Lymphocytes % (Auto) 5 % (10-50); Mean Corpuscular HGB Conc 31.2 g/dl (31.0-37.0); Mean Corpuscular Hemoglobin 24.6 pg (25.0-35.0); Mean Corpuscular Volume 79 fL (80-100); Monocytes # (Auto) 0.4 Thou/mm3 (0.0-0.8); Monocytes % (Auto) 4 % (0-12); Neutrophils # (Auto) 9.9 Thou/mm3 (1.8-7.7); Neutrophils % (Auto) 90 % (37-80); Nucleated Red Blood Cell % 0 /100 WBC (0); Platelet Count 401 Thou/mm3 (140-440); Red Blood Count 3.01 Miln/mm3 (4.50-5.90)
[2024-06-01] MEDS: HYDROcodone/APAP 5/325 TABLET 1 TAB PO (06:46)
[2024-06-01 06:48] LABS: Hemoglobin 7.4 g/dL (13.5-16.0)
--- NOTE | 2024-06-01 08:50 | PD.RESPRO ---
Documentation for date of: 06/01/24 Subjective Subjective Interval history: Patient was seen at bedside this morning. No overnight events. Reviewed color expert and patient was SR with occasional PVCs Patient's Blood pressure has been low in the 90s over 60s and kidney function has slightly worsened with Cr 2.7 and BUN 69. Will do diuretic holiday and will start Bumex 2mg PO daily on 05/04/2024. Patient continues on amiodarone 200 mg twice daily Recommend to continue metoprolol XL and titrate if blood pressure allows Completed heparin drip. Patient is not a candidate for any invasive cardiac intervention at this time given multiple comorbidities, but he can be treated medically with goal-directed medical therapy. Potassium 4.3 and magnesium 2 today recommend to keep potassium magnesium above 4 and to respectively to avoid any further arrhythmias. Echo on 05/28/2024 had the following findings Mildly dilated LV size. Severe systolic dysfunction. Estimated EF 10-15% Grade III DD with Akinetic apex along with severe global hypokinesis. Normal RV size. Moderate RV systolic dysfunction. Estimated RVSP 50mmHg. Atleast moderate PAH Moderate MR. Mild to moderate TR, Mild AI and PI. Mild biatrial dilation with IVC mildly dilated. Overall picture of dilated cardiomyopathy Exam Vital Signs Temp Pulse Resp BP Pulse Ox O2 Del Method O2 Flow Rate 96.8 F 67 21 H 93/60 92 L Room Air 2 06/01/24 07:58 06/01/24 07:58 06/01/24 07:58 06/01/24 07:58 06/01/24 07:58 06/01/24 07:58 05/31/24 11:35 Narrative Exam General: A/O x3, ill-appearing, thin. Eyes: PERRL, EOMI. Anicteric, vision grossly intact. Ears: No ear pain, no ear discharge, Hearing grossly intact. Nose: No nasal discharge. Mouth/Throat: Dry mucous membranes, no redness, no lesions. Neck: Neck supple, non-tender, no cervical lymphadenopathy. Lungs: Clear JOHN to auscultation and percussion, No accessory muscle use. Cardio: Normal S1/S2, regular rhythm, no murmurs, no JVD Abdomen: Firm without distension, non-tender, peristalsis present, no guarding or rebound. Extremities: R upper 3-5 digit amputation, JOHN BKA, R BKA covered by clean dressing, no peripheral edema , non-tender. Skin: No rashes, no lesions, warm to touch. Neuro: No focal neurological deficits. Motor and sensory intact. Psych: Cooperative, appropriate mood and effect. Objective Labs 06/01/24 05:00 06/01/24 05:00 Labs: Laboratory Results - last 24 hr 05/31/24 05/31/24 06/01/24 06:15 16:49 05:00 WBC 11.0 H D RBC 3.01 L Hgb 7.4 L Hct 23.7 L MCV 79 L MCH 24.6 L MCHC 31.2 RDW Std Deviation 53.0 H Plt Count 401 D Neut % (Auto) 90 H Lymph % (Auto) 5 L [place] % (Auto) 4 Eos % (Auto) 0 Baso % (Auto) 0 Neut # (Auto) 9.9 H Lymph # (Auto) 0.5 L [place] # (Auto) 0.4 Eos # (Auto) 0.0 Baso # (Auto) 0.0 Immature Gran # (Auto) 0.14 H Absolute Nucleated RBC 0.00 Immature Gran % 1 H Nucleated RBC % 0 APTT 55.5 H D Sodium 138 135 L 135 L Potassium 3.5 D 4.5 D 4.3 Chloride 99 98 99 Carbon Dioxide 26.2 22.7 23.9 Anion Gap 13 14 12 BUN 63 H 69 H Creatinine 2.3 H 2.7 H Estim Creat Clear Calc 28.0 L 22.9 L eGFR 31 L 25 L BUN/Creatinine Ratio 27 H 26 H Glucose 239 H D 224 H Calculated Osmolality 296 H 297 H Calcium 8.3 8.1 L Corrected Calcium 8.8 Magnesium 2.0 Total Bilirubin 0.4 AST < 10 ALT < 7 L Alkaline Phosphatase 75 Total Protein 6.6 Albumin 3.1 L Globulin 3.5 Albumin/Globulin Ratio 0.9 L Quality Measures Quality Measures VTE prophylaxis Advance care planning discussed with:: patient and spouse Assessment & Plan Assessment Current Active Medications: Generic Name Dose Route Start Last Admin Trade Name Freq PRN Reason Stop Dose Admin Acetaminophen 650 mg 05/28/24 04:05 06/01/24 04:34 Acetaminophen 325 Mg Tablet PO 06/27/24 04:04 650 mg Q6H PRN Administration Pain 1-3 and/or Fever >100.1 Hydrocodone Bitart/Acetaminophen 1 tab 06/01/24 06:36 06/01/24 06:46 Hydrocodone/Apap 5/325 Tablet PO 06/06/24 06:35 1 tab Q6HR PRN Administration Pain 4-10 Amiodarone HCl 200 mg 05/29/24 21:00 05/31/24 20:57 Amiodarone Hcl 200 Mg Tablet PO 06/28/24 20:59 200 mg BID KENNY Administration Ascorbic Acid 500 mg 06/01/24 09:00 Ascorbic Acid 250 Mg Tablet PO 07/01/24 08:59 BID KENNY Atorvastatin Calcium 80 mg 05/29/24 04:50 05/31/24 20:58 Atorvastatin Calcium 20 Mg Tablet PO 06/28/24 04:49 80 mg HS KENNY Administration Bumetanide 2 mg 05/29/24 21:00 05/31/24 20:55 Bumetanide Inj 0.25 Mg/Ml Vial 4 Ml IVP 06/28/24 20:59 2 mg BID KENNY Administration Dextrose 25 ml 05/28/24 04:12 Dextrose 50%-Water Inj 50 Ml Syringe IV 06/27/24 04:11 Q15MIN PRN BG 50-70 responsive npo pt Dextrose 50 ml 05/28/24 04:12 Dextrose 50%-Water Inj 50 Ml Syringe IV 06/27/24 04:11 Q15MIN PRN BG <50 OR BG <70 & pt unresponsive Glucagon 1 mg 05/28/24 04:12 Glucagon Inj 1 Mg Vial IM Q15MIN PRN BG <70, and no IV access Vancomycin/Sodium Chloride 750 mg in 150 mls @ 120 mls/hr 05/30/24 10:00 05/31/24 12:45 Vancomycin/Ns 750 Mg Ivpb IV 06/06/24 09:59 120 mls/hr QDAY@1000 KENNY Administration Protocol Heparin Sodium/Dextrose 25,000 unit in 250 mls @ 7.406 mls/hr 05/31/24 23:00 06/01/24 07:01 Heparin In D5w Ivpb IV 06/14/24 22:59 12 units/kg/hr .Q24H KENNY 7.406 mls/hr Titration Protocol 12 UNITS/KG/HR Insulin Glargine 15 unit 05/28/24 09:00 05/31/24 20:56 Insulin Glargine (Lantus) 5 Unit/0.05 Ml (Per 5 Units) SC 06/27/24 08:59 15 unit BID KENNY Administration Insulin Human Lispro 0 unit 05/28/24 17:00 06/01/24 07:17 Insulin Lispro (Admelog) 1 Unit/0.01 Ml Unit SC 06/27/24 16:59 Not Given ACHS [facility] Protocol Metoprolol Succinate 12.5 mg 05/30/24 09:00 05/31/24 12:40 Metoprolol Succinate Xl 25 Mg Tabcr PO 06/29/24 08:59 Not Given QDAY [facility] Ondansetron HCl 4 mg 05/28/24 04:05 05/29/24 21:48 Ondansetron Inj 2 Mg/Ml Inj 2 Ml IV 06/27/24 04:04 4 mg Q6H PRN Administration NAUSEA OR VOMITING Protocol Pharmacy Consult 1 each 05/28/24 11:07 Pharmacy Renal Dose Adjustment 1 Ea XX 06/27/24 11:06 PRN PRN CONSULT Pharmacy Consult 1 each 05/29/24 06:38 Vancomycin Pharmacy To Dose 1 Each Each IV 06/27/24 08:59 QDAY PRN PROTOCOL Sennosides 1 tab 05/28/24 09:00 05/31/24 12:40 Senna Tablet PO 06/27/24 08:59 Not Given QDAY [facility] Protocol Zinc Sulfate 220 mg 06/01/24 09:00 Zinc Sulfate 220 Mg Capsule PO 07/01/24 08:59 QDAY KENNY Plan 63-year-old male with past medical history of CAD s/p stents, HFrEF (10-15%) hypertension, IDDM, hyperlipidemia, left BKA, and 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 1. Acute decompensated systolic heart failure exacerbation (10-15% EF) 2. Sinus tachycardia with NSVT 3. Dilated Cardiomyopathy 4. CAD s/p stents -Patient is currently having multiple runs of NSVT, PVC's likely in the setting of severe heart failure as well as ischemia from prior [place] -Patient will most likely benefit from ICD if he continues to develop NSVT if EF does not improve after atleast 3 months of GDMT. -Echo on 05/28/2024 had the following findings Mildly dilated LV size. Severe systolic dysfunction. Estimated EF 10-15% Grade III DD with Akinetic apex along with severe global hypokinesis. Normal RV size. Moderate RV systolic dysfunction. Estimated RVSP 50mmHg. Atleast moderate PAH Moderate MR. Mild to moderate TR, Mild AI and PI. Mild biatrial dilation with IVC mildly dilated. Overall picture of dilated cardiomyopathy Plan: -Continue Amiodarone PO 200mg BID. -Patient's Blood pressure has been low and kidney function has slightly worsened with Cr 2.7 and BUN 69. -Will do diuretic holiday and will start Bumex 2mg PO daily on 05/04/2024. -Continue metoprolol XL and titrate as BP allows. -Continue high intensity statin and aspirin -Continue heparin drip for a total of 48 hours and can stop heparin drip 6 hours prior to any surgery. -Keep potassium and magnesium above 4 and 2 to avoid any arrhythmias 4. Essential hypertension 5. NSTEMI type II -Patient's blood pressure is on the low end likely in the setting of severe heart failure. -Troponins peaked at 0.095 and downtrended Plan: -Recommend no further troponins -Consider midodrine or pressor support if patient cannot sustain a MAP 65<. 6. Sepsis 2/2 osteomyelitis 7. osteomyelitis R foot 8. IDDM -Patient is high risk for surgery given multiple comorbidities including heart failure with ejection fraction of 10-15%. -Continue current management as per primary care team 9. JADIEL on CKD stage 3b 10. Hyperlipidemia -Continue current management as per primary care team Continue rest of management as per primary team. We are grateful to be able to participate in Mr. Galdamez's care. Thank you for the consult Plan of care discussed with attending Intake Counselor, Dr. Scotty Solomon MD PGY-1 Attending Provider Attestation/Addendum I have personally seen and examined the patient separately on the above date of service and discussed the plan of care with the resident. I reviewed the resident Dr. Holguin consultation progress note and agree with the resident findings and plan in the note above and have also edited the documentation to reflect my findings and plan. Chaz Fajardo M.D. Interventional Cardiology
[2024-06-01] MEDS: ASCORBIC ACID 250 MG TABLET 500 MG PO (09:02)
[2024-06-01] MEDS: AMIODARONE HCL 200 MG TABLET PO ×2 (09:03→20:25)
[2024-06-01] MEDS: ZINC SULFATE 220 MG CAPSULE PO (09:03)
[2024-06-01] MEDS: METOPROLOL SUCCINATE XL 25 MG TABCR 12.5 MG PO (09:03)
[2024-06-01] MEDS: INSULIN GLARGINE (Lantus) 5 UNIT/0.05 ML (PER 5 UNITS) 15 UNIT SC (09:07)
[2024-06-01 09:25] LABS: Vancomycin,Trough 23.3 mcg/mL (5.0-10.0)
[2024-06-01] MEDS: ONDANSETRON INJ 2 MG/ML INJ 2 ML 4 MG IV ×2 (11:01→20:39)
[2024-06-01] MEDS: HYDROmorphone INJ 2 MG/ML VIAL 0.25 MG IVP (11:13)
--- NOTE | 2024-06-01 13:05 | PD.RESCONSUL ---
HPI Data of Consult Consult date: 06/01/24 Requesting Physician: Hermilo Moreno MD Admitting Provider: Waldemar Garcia MD Attending Provider: Hermilo Moreno MD Primary Care Provider: Jalil Le MD Consult Narrative Reason for consult: JADIEL on CKD History of present illness: Mr. Galdamez is a 63-year-old male with a previous medical history of CAD status post PCI, hypertension, hyperlipidemia, CKD stage IIIb, insulin-dependent type 2 diabetes, HFrEF, osteomyelitis, status post left BKA, right hand third/5 finger amputation who was admitted to the hospital on 05/28 due to shortness of breath. Hospital course: He was initially admitted due to CHF exacerbation and underlying infection pneumonia versus osteomyelitis. Cardiology was consulted, echo showed ejection fraction of 10% and also had a rapid response due to tachycardia, was started on amiodarone due to A-fib with RVR, beta-blockers and diuretics. Surgery was consulted due to right foot ulcer, x-ray of the right foot showed osteomyelitis and he underwent right-sided BKA. Nephrology was consulted for JADIEL on CKD. 06/01/2024: Patient was seen and examined by the bedside with family members present. Patient verbally agreed to share his medical condition updates with his family present. He denies shortness of breath, chest pain, headache, dysuria. He reports that his pain levels is 8 out of 10, declines additional pain meds. Patient condition was discussed with him, he was explained that his kidney function has worsened and he may require dialysis in the future. Patient stated that he does not want dialysis. Labs showed hemoglobin 7.4, sodium 135, potassium 4.3, BUN 69, creatinine 2.7, EGFR 25. Will continue to monitor patient closely for now. Bumex on hold till 06/03 for now. cc:: cc: Hermilo Moreno MD Review of Systems Review of Systems Narrative Review of Systems: General: Denies weight loss, fever and chills. HEENT: Denies changes in vision and hearing. Resp: Denies SOB, cough and wheezing. CVS: Denies palpitations and CP. GI: Denies abdominal pain, nausea, vomiting and diarrhea. : Denies dysuria and urinary frequency. MSK: Denies myalgia and joint pain. Denies rash and pruritus. Reports pain in the right BKA stump. Neuro: Denies headache and syncope. Psych: Family members report irritative mood. Past Medical History Past Medical History NEUROLOGIC: Positive Neurological Disorders and Peripheral Neuropathy; Negative Cerebrovascular Accident, Transient Ischemic Attacks (TIA), Dementia, Alzheimer's Disease, Parkinson's Disease, Brain Tumor, Meningitis, Seizures, Epilepsy, Multiple Sclerosis, Cerebral Palsy, Amyotrophic Lateral Sclerosis (ALS/Sara Gehrig's), Guillain-[place] Syndrome, Spina Bifida, Paralysis, Eldridge's Palsy, Subdural Hematoma, Migraine, Head Trauma, Spinal Cord Injury or Traumatic Brain Injury CARDIAC: Positive Cardiac Disorders (cardiac arrest x 5 minutes- 12/04/22. irregular heart rate sometimes.), Myocardial Infarction (17 yrs ago), Coronary Artery Disease, Hypercholesterolemia, Cellulitis, Hypertension and Hypotension; Negative Cardiac Arrhythmia, Atrial Fibrillation, Angina, Heart Murmur, Atherosclerotic Heart Disease, Peripheral Vascular Disease, Aneurysm, Congestive Heart Failure, Congenital Heart Disease, Valvular Heart Disease, Rheumatic Fever, Cardiomyopathy, Edema, Pericarditis, Deep Vein Thrombosis or Varicose Veins RESPIRATORY: Positive Pneumonia; Negative Respiratory Disorders, Chronic Obstructive Pulmonary Disease (COPD), Asthma, Bronchitis, Emphysema, Pulmonary Fibrosis, Cystic Fibrosis, Tuberculosis, Pulmonary Embolism, Pulmonary Edema or Sleep Apnea GASTROINTESTINAL: Negative Gastrointestinal Disorders, Hepatitis, Cirrhosis, Pancreatitis, Celiac Disease, Gall Bladder Disease, Gastrointestinal Bleed, Esophageal Varices, Mclaughlin's Esophagus, Colitis, Ulcerative Colitis, Diverticulitis, Diverticulosis, Ulcer, Colorectal Cancer, Irritable Bowel, Crohn's Disease, Obstructive Bowel, Hiatal Hernia, Hemorrhoids, Gastroesophageal Reflux Disease or Obesity GENITOURINARY: Negative Genitourinary Disorders, Renal Disease, Kidney Stones, Polycystic Kidney Disease, Neurogenic Bladder, Inguinal Hernia, Dialysis, Prostate Cancer or Benign Prostatic Hyperplasia REPRODUCTIVE: Negative Breast Cancer or Testicular Cancer MUSCULOSKELETAL: Positive Musculoskeletal Disorders and Osteomyelitis (bilateral feet); Negative Muscular Dystrophy, Myasthenia Gravis, Marfan's Syndrome, Bone Cancer, Arthritis, Rheumatoid Arthritis, Osteoporosis, Degenerative Disk Disease, Gout, Scoliosis, Carpal Tunnel Syndrome, Fibromyalgia, Fractures, Degenerative Joint Disease or Poliovirus ENT: Negative History of ENT Problems, Cataracts, Glaucoma, Blind, Retinal Detachment, Macular Degeneration, Ear Infection, Deafness, Head Trauma or Eye Prosthesis ENDOCRINE: Positive Endocrine Disorders and Diabetes Mellitus Type 2; Negative Diabetes Mellitus Type 1, Hypoglycemia, Wally's Syndrome, Eusebio's Disease, Hyperthyroidism, Hypothyroidism, Parathyroid Disease, Pituitary Disease, Systemic Lupus Erythematosus, Syndrome of Inappropriate Antidiuretic Hormone (SIADH), Adrenal Disease or Graves' Disease HEMATOLOGIC: Negative Blood Disorders, Anemia, Leukemia, Hemophilia, Thalassemia, Sickle Cell Disease or Clotting Problems PSYCHO/SOCIAL: Negative Psychiatric Problems, Schizophrenia, Recreational Drug Use, Bipolar Disorder, Depression, Anxiety, Behavior Problems, Self-Mutilation, Attention Deficit Disorder, Attention Deficit Hyperactivity Disorder, Post Traumatic Stress Disorder or Eating Disorder OTHER HISTORY: Positive Hospitalization and Chicken Pox; Negative Autoimmune Disease, Down Syndrome, Autism, Developmental Delay, Shingles, Falls, Blood Transfusions, Blood Transfusion Reaction, Anesthesia Reactions, Organ Transplant, Chemotherapy, Radiation Therapy, Hyperbaric Therapy, MRSA, VRSA, Vancomycin-Resistant Enterococci, Human Immunodeficiency Virus (HIV), Measles, Mumps, Rubella ([place] Measles), Pertussis, Clostridium Difficile, Cancer, Breast Cancer, Colorectal Cancer, Lung Cancer, Prostate Cancer or Testicular Cancer Family History FAMILY HISTORY: Positive Family Cardiac Disorders; Negative Family Psychiatric Problems, Family Respiratory Disorders, Family Gastrointestinal Problems, Family Cancer, Family Surgery or Family Anesthesia Reaction Surgical History SURGICAL: Positive Coronary Stent (x1- 17 yrs ago), Cardiac Catheterization and Angiogram; Negative Cardiac Surgery, Open Heart Surgery, Coronary Artery Bypass Graft, Valve Replacement, Vascular Surgery, Pacemaker, Auto Implanted Cardiovert Defib, Carotid Endarterectomy, Endocrine Surgery, Thyroidectomy, Ear Surgery, Tympanostomy Tube, Eye Surgery, Nose Surgery, Oral Surgery, Tonsillectomy, Adenoidectomy, Cochlear Implant, Corneal Transplant, Throat Surgery, Abdominal Surgery, Tracheostomy, Gastric Bypass Surgery, Gastrostomy, Bowel Surgery, Nephrectomy, Transurethral Resection, Joint Replacement, Amputation, Open Reduction Internal Fixation, Arthroscopy, Neurologic Surgery, Brain Shunt, Vasectomy or Organ Transplant Social History SMOKING STATUS: Never smoker SECOND HAND EXPOSURE: No Exam Vital Signs Temp Pulse Resp BP Pulse Ox O2 Del Method O2 Flow Rate 97.2 F 64 21 H 92/64 94 L Room Air 2 06/01/24 12:00 06/01/24 12:00 06/01/24 12:00 06/01/24 12:00 06/01/24 12:00 06/01/24 12:00 05/31/24 11:35 Narrative Exam Physical Exam General: Awake and in no acute distress. Conversational and non-toxic appearing. HEENT: Normocephalic, atraumatic, mucous membranes moist. Heart: Regular rate and rhythm, no murmurs. Lungs: Clear to auscultation with no wheezing or crackles. Abdomen: Soft, nondistended, nontender, positive bowel sounds. ?No guarding or rebound tenderness. Neurologic: Alert and oriented x3, no gross neurological deficit, and patient able to move all 4 extremities. Extremities: Left BKA. Right BKA site is covered in dressings. Skin: No rash or ecchymoses. Results Labs 06/02/24 04:56 06/02/24 04:56 Labs: Short CBC 06/01/24 Range/Units 05:00 WBC 11.0 H D (3.8-10.6) Thou/mm3 Hgb 7.4 L (13.5-16.0) g/dL Hct 23.7 L (41.0-53.0) % Plt Count 401 D (140-440) Thou/mm3 BMP 05/31/24 05/31/24 06/01/24 06:15 16:49 05:00 Sodium 138 135 L 135 L Potassium 3.5 D 4.5 D 4.3 Chloride 99 98 99 Carbon Dioxide 26.2 22.7 23.9 BUN 63 H 69 H Creatinine 2.3 H 2.7 H Glucose 239 H D 224 H Calcium 8.3 8.1 L Liver Function 06/01/24 Range/Units 05:00 Total Bilirubin 0.4 (0.3-1.2) mg/dL AST < 10 (0-34) U/L ALT < 7 L (10-49) U/L Alkaline Phosphatase 75 (46-116) U/L Albumin 3.1 L (3.4-4.8) gm/dL Quality Measures Quality Measures VTE prophylaxis Advance care planning discussed with:: other Medications Home Medications and Allergies Home Medications ?Medication ?Instructions ?Recorded ?Confirmed ?Type insulin glargine 100 unit/mL (3 35 unit subcut BID 06/24/20 05/28/24 History mL) subcutaneous pen (Lantus Solostar U-100 Insulin) metformin 1,000 mg tablet 1,000 mg PO BID 06/24/20 05/28/24 History aspirin 81 mg tablet,delayed 81 mg PO QDAY 03/23/22 05/28/24 History release gabapentin 300 mg capsule 300 mg PO QDAY 01/01/24 05/28/24 History rosuvastatin 20 mg tablet 20 mg PO QDAY 01/01/24 05/28/24 History tamsulosin 0.4 mg capsule (Flomax) 0.4 mg PO DAILY 01/01/24 05/28/24 History bumetanide 1 mg tablet 1 mg PO BID 01/19/24 05/28/24 History Allergies Allergy/AdvReac Type Severity Reaction Status Date / Time No Known Allergies Allergy Verified 05/28/24 05:31 Visit Medications Acetaminophen (Acetaminophen 325 Mg Tablet) 650 mg PO Q6H PRN PRN Reason: Pain 1-3 and/or Fever >100.1 Stop: 06/27/24 04:04 Last Admin: 06/01/24 04:34 Dose: 650 mg Hydrocodone Bitart/Acetaminophen (Hydrocodone/Apap 5/325 Tablet) 1 tab PO Q6HR PRN PRN Reason: PAIN SCALE 4-6 (Moderate Stop: 06/06/24 06:35 Amiodarone HCl (Amiodarone Hcl 200 Mg Tablet) 200 mg PO BID [facility] Stop: 06/28/24 20:59 Last Admin: 06/01/24 09:03 Dose: 200 mg Apixaban (Apixaban 2.5 Mg Tablet) 5 mg PO BID [facility] Stop: 07/01/24 20:59 Ascorbic Acid (Ascorbic Acid 250 Mg Tablet) 500 mg PO BID [facility] Stop: 07/01/24 08:59 Last Admin: 06/01/24 09:02 Dose: 500 mg Atorvastatin Calcium (Atorvastatin Calcium 20 Mg Tablet) 80 mg PO HS [facility] Stop: 06/28/24 04:49 Last Admin: 05/31/24 20:58 Dose: 80 mg Bumetanide (Bumetanide 0.5 Mg Tablet) 2 mg PO QDAY [facility] Stop: 07/03/24 08:59 Dextrose (Dextrose 50%-Water Inj 50 Ml Syringe) 25 ml IV Q15MIN PRN PRN Reason: BG 50-70 responsive npo pt Stop: 06/27/24 04:11 Dextrose (Dextrose 50%-Water Inj 50 Ml Syringe) 50 ml IV Q15MIN PRN PRN Reason: BG <50 OR BG <70 & pt unresponsive Stop: 06/27/24 04:11 Doxycycline Hyclate (Doxycycline 100 Mg Tablet) 100 mg PO BID [facility] Stop: 06/08/24 10:59 Last Admin: 06/01/24 11:03 Dose: Not Given Glucagon (Glucagon Inj 1 Mg Vial) 1 mg IM Q15MIN PRN PRN Reason: BG <70, and no IV access Hydromorphone HCl (Hydromorphone Inj 2 Mg/Ml Vial) 0.25 mg IVP Q4HR PRN PRN Reason: PAIN SCALE 7-10 (Severe Stop: 06/06/24 10:34 Last Admin: 06/01/24 11:13 Dose: 0.25 mg Insulin Glargine (Insulin Glargine (Lantus) 5 Unit/0.05 Ml (Per 5 Units)) 15 unit SC BID [facility] Stop: 06/27/24 08:59 Last Admin: 06/01/24 09:07 Dose: 15 unit Insulin Human Lispro (Insulin Lispro (Admelog) 1 Unit/0.01 Ml Unit) 0 unit SC [facility]; Protocol Stop: 06/27/24 16:59 Last Admin: 06/01/24 11:09 Dose: Not Given Metoprolol Succinate (Metoprolol Succinate Xl 25 Mg Tabcr) 12.5 mg PO QDAY [facility] Stop: 06/29/24 08:59 Last Admin: 06/01/24 09:03 Dose: 12.5 mg Ondansetron HCl (Ondansetron Inj 2 Mg/Ml Inj 2 Ml) 4 mg IV Q6H PRN; Protocol PRN Reason: NAUSEA OR VOMITING Stop: 06/27/24 04:04 Last Admin: 06/01/24 11:01 Dose: 4 mg Sennosides (Senna Tablet) 1 tab PO QDAY [facility]; Protocol Stop: 06/27/24 08:59 Last Admin: 06/01/24 09:04 Dose: Not Given Zinc Sulfate (Zinc Sulfate 220 Mg Capsule) 220 mg PO QDAY [facility] Stop: 07/01/24 08:59 Last Admin: 06/01/24 09:03 Dose: 220 mg Discontinued Medications Hydrocodone Bitart/Acetaminophen (Hydrocodone/Apap 5/325 Tablet) 1 tab PO Q6HR PRN PRN Reason: Pain 4-10 Stop: 06/06/24 06:35 Last Admin: 06/01/24 06:46 Dose: 1 tab Amiodarone HCl (Amiodarone Hcl 200 Mg Tablet) 200 mg PO BID [facility] Stop: 06/28/24 09:59 Amiodarone HCl (Amiodarone Hcl 200 Mg Tablet) 200 mg PO X1 ONE Stop: 05/31/24 15:07 Last Admin: 05/31/24 15:26 Dose: 200 mg Aspirin (Aspirin Ec 81 Mg Tabec) 81 mg PO QDAY [facility] Stop: 06/27/24 08:59 Last Admin: 05/28/24 10:49 Dose: Not Given Aspirin (Aspirin Ec 81 Mg Tabec) 81 mg PO X1 ONE Stop: 05/28/24 15:17 Last Admin: 05/28/24 15:55 Dose: Not Given Bumetanide (Bumetanide Inj 0.25 Mg/Ml Vial 4 Ml) 1 mg IVP BID [facility] Stop: 06/27/24 08:59 Last Admin: 05/28/24 09:30 Dose: 1 mg Bumetanide (Bumetanide Inj 0.25 Mg/Ml Vial 4 Ml) 1 mg IVP BID [facility] Stop: 06/27/24 08:59 Last Admin: 05/29/24 09:39 Dose: 1 mg Bumetanide (Bumetanide Inj 0.25 Mg/Ml Vial 4 Ml) 2 mg IVP BID [facility] Stop: 06/28/24 20:59 Last Admin: 05/31/24 20:55 Dose: 2 mg Bumetanide (Bumetanide 0.5 Mg Tablet) 2 mg PO QDAY [facility] Stop: 07/02/24 08:59 Fentanyl Citrate (Fentanyl Cit Inj 50 Mcg/Ml Amp 2ml) 25 mcg IV Q5MIN PRN PRN Reason: PAIN SCALE 4-10(Mod-Sev Stop: 05/31/24 12:37 Furosemide (Furosemide Inj 10 Mg/Ml 4ml Vial) 40 mg IVP X1 ONE Stop: 05/28/24 04:06 Last Admin: 05/28/24 04:20 Dose: 40 mg Heparin Sodium (Porcine) (Heparin Sod Inj 5000 Unit/Ml Vial) 5,000 unit SC Q12HR [facility] Stop: 06/11/24 08:59 Last Admin: 05/28/24 10:49 Dose: Not Given Heparin Sodium (Porcine) (Heparin Sod Inj 5000 Unit/Ml Vial) 5,000 unit SC X1 ONE Stop: 05/28/24 15:16 Last Admin: 05/28/24 15:50 Dose: Not Given Heparin Sodium (Porcine) (Heparin Sod Inj 5000 Unit/Ml Vial) 3,480 unit IVP X1 ONE Stop: 05/28/24 17:27 Last Admin: 05/28/24 17:40 Dose: 3,480 unit Heparin Sodium (Porcine) (Heparin Sod Inj 5000 Unit/Ml Vial) 1,700 unit IVP X1 ONE Stop: 05/29/24 00:47 Last Admin: 05/29/24 01:04 Dose: 1,700 unit Heparin Sodium (Porcine) (Heparin Sod Inj 5000 Unit/Ml Vial) 1,950 unit 30 unit/kg (1950 unit) IV X1 ONE Stop: 05/29/24 18:02 Last Admin: 05/29/24 18:09 Dose: 1,950 unit Sodium Chloride (Ns) 1,000 mls @ 999 mls/hr IV .Q1H1M ONE Stop: 05/27/24 20:07 Last Infusion: 05/27/24 20:40 Dose: Infused Sodium Chloride (Ns) 1,000 mls @ 999 mls/hr IV .Q1H1M ONE Stop: 05/27/24 20:07 Last Infusion: 05/27/24 20:40 Dose: Infused Piperacillin Sod/Tazobactam (Sod 4.5 gm/ Sodium Chloride) 100 mls @ 200 mls/hr IV Q6HR [facility] Stop: 06/04/24 04:23 Last Admin: 05/28/24 13:01 Dose: Not Given Piperacillin Sod/Tazobactam (Sod 2.25 gm/ Sodium Chloride) 100 mls @ 200 mls/hr IV Q6HR [facility] Stop: 06/04/24 05:59 Last Admin: 05/28/24 13:00 Dose: Not Given Piperacillin Sod/Tazobactam (Sod 2.25 gm/ Sodium Chloride) 100 mls @ 200 mls/hr IV X1 ONE Stop: 05/28/24 05:44 Last Admin: 05/28/24 06:42 Dose: 200 mls/hr Piperacillin/Tazobactam/Dextrose (Zosyn) 50 mls @ 12.5 mls/hr IV Q8HR [facility]; Protocol Stop: 06/04/24 05:59 Last Admin: 05/28/24 13:19 Dose: 12.5 mls/hr Vancomycin/Sodium Chloride (Vancomycin/Ns 1 Gm Ivpb) 200 mls @ 200 mls/hr IV X1 [facility] Stop: 06/04/24 09:59 Vancomycin/Sodium Chloride (Vancomycin/Ns 750 Mg Ivpb) 750 mg in 150 mls @ 150 mls/hr IV Q24H [facility] Stop: 06/05/24 08:59 Amiodarone HCl/Dextrose (Nexterone Ivpb) 150 mg in 100 mls @ 600 mls/hr IV .Q10M ONE Stop: 05/28/24 11:55 Last Admin: 05/28/24 11:52 Dose: 600 mls/hr Amiodarone HCl/Dextrose (Nexterone Ivpb) 360 mg in 200 mls @ 33.333 mls/hr IV .Q6H ONE Stop: 05/28/24 17:45 Last Admin: 05/28/24 12:06 Dose: 33.333 mls/hr Amiodarone HCl/Dextrose (Nexterone Ivpb) 360 mg in 200 mls @ 16.667 mls/hr IV .Q12H [facility] Stop: 05/29/24 11:45 Last Admin: 05/28/24 13:56 Dose: Not Given Amiodarone HCl/Dextrose (Nexterone Ivpb) 360 mg in 200 mls @ 16.667 mls/hr IV .Q12H [facility] Stop: 05/29/24 18:06 Last Admin: 05/29/24 07:42 Dose: 16.667 mls/hr Potassium Chloride (Kcl Ivpb) 10 meq in 100 mls @ 100 mls/hr IV Q1H ONE Stop: 05/28/24 16:13 Last Admin: 05/28/24 15:59 Dose: 100 mls/hr Heparin Sodium/Dextrose (Heparin In D5w Ivpb) 25,000 unit in 250 mls @ 6.971 mls/hr IV .Q24H [facility]; Protocol Stop: 05/31/24 05:00 Last Admin: 05/31/24 16:27 Dose: Not Given Piperacillin Sod/Tazobactam (Sod 4.5 gm/ Sodium Chloride) 100 mls @ 200 mls/hr IV Q8HR [facility]; Protocol Stop: 06/04/24 21:59 Last Admin: 05/31/24 05:11 Dose: 200 mls/hr Sodium Chloride (Ns) 250 mls @ 999 mls/hr IV .Q16M ONE Stop: 05/29/24 00:04 Last Admin: 05/29/24 00:12 Dose: 999 mls/hr Vancomycin/Sodium Chloride (Vancomycin/Ns 1 Gm Ivpb) 200 mls @ 120 mls/hr IV X1 ONE Stop: 05/29/24 09:39 Last Admin: 05/29/24 07:41 Dose: 120 mls/hr Potassium Chloride (Kcl Ivpb) 10 meq in 100 mls @ 100 mls/hr IV Q1H ONE Stop: 05/29/24 11:19 Last Infusion: 05/29/24 10:57 Dose: 75 mls/hr Vancomycin/Sodium Chloride (Vancomycin/Ns 750 Mg Ivpb) 750 mg in 150 mls @ 120 mls/hr IV QDAY@1000 [facility]; Protocol Stop: 06/06/24 09:59 Last Admin: 05/31/24 12:45 Dose: 120 mls/hr Potassium Chloride (Kcl Ivpb) 10 meq in 100 mls @ 100 mls/hr IV Q1H ONE Stop: 05/30/24 11:14 Last Admin: 05/30/24 10:47 Dose: 75 mls/hr Potassium Chloride (Kcl Ivpb) 10 meq in 100 mls @ 100 mls/hr IV Q1H [facility] Stop: 05/31/24 11:27 Last Admin: 05/31/24 16:22 Dose: Not Given Heparin Sodium/Dextrose (Heparin In D5w Ivpb) 25,000 unit in 250 mls @ 7.406 mls/hr IV .Q24H [facility]; Protocol Stop: 06/14/24 22:59 Last Titration: 06/01/24 07:01 Dose: 12 units/kg/hr, 7.406 mls/hr Potassium Chloride (Kcl Ivpb) 10 meq in 100 mls @ 100 mls/hr IV Q1H [facility] Stop: 05/31/24 20:15 Last Admin: 05/31/24 21:42 Dose: Not Given Insulin Glargine (Insulin Glargine (Lantus) 5 Unit/0.05 Ml (Per 5 Units)) 10 unit SC X1 ONE Stop: 05/28/24 04:13 Last Admin: 05/28/24 04:23 Dose: 10 unit Insulin Human Lispro (Insulin Lispro (Admelog) 1 Unit/0.01 Ml Unit) 0 unit SC [facility]; Protocol Stop: 06/27/24 07:29 Insulin Human Lispro (Insulin Lispro (Admelog) 1 Unit/0.01 Ml Unit) 0 unit SC Q6HR [facility]; Protocol Stop: 06/27/24 05:59 Last Admin: 05/28/24 07:17 Dose: 8 unit Insulin Human Lispro (Insulin Lispro (Admelog) 1 Unit/0.01 Ml Unit) 0 unit SC Q6HR [facility]; Protocol Stop: 06/27/24 05:59 Insulin Human Lispro (Insulin Lispro (Admelog) 1 Unit/0.01 Ml Unit) 0 unit SC Q6HR [facility]; Protocol Stop: 06/27/24 05:59 Last Admin: 05/28/24 11:34 Dose: 10 unit Insulin Human Regular (Insulin Hum Regular 1 Unit/0.01 Ml (Per Unit)) 10 unit IV X1 ONE Stop: 05/27/24 20:48 Last Admin: 05/27/24 20:54 Dose: 10 unit Insulin Human Regular (Insulin Hum Regular 1 Unit/0.01 Ml (Per Unit)) 10 unit SC X1 ONE Stop: 05/28/24 08:48 Last Admin: 05/28/24 09:02 Dose: 10 unit Melatonin (Melatonin 3 Mg Tablet) 3 mg PO HS ONE Stop: 05/31/24 23:24 Last Admin: 05/31/24 23:29 Dose: 3 mg Metoprolol Succinate (Metoprolol Succinate Xl 25 Mg Tabcr) 12.5 mg PO X1 ONE Stop: 05/31/24 15:07 Last Admin: 05/31/24 15:29 Dose: 12.5 mg Morphine Sulfate (Morphine Sulf Inj 10 Mg/Ml Vial) 1 mg IVP X1 ONE Stop: 05/31/24 07:04 Last Admin: 05/31/24 07:14 Dose: 1 mg Pantoprazole Sodium (Pantoprazole Inj 40 Mg Vial) 40 mg IVP QDAY [facility] Stop: 06/27/24 08:59 Last Admin: 05/28/24 08:40 Dose: 40 mg Pharmacy Consult (Vancomycin Pharmacy To Dose 1 Each Each) 1 each IV QDAY [facility] Stop: 06/27/24 08:59 Last Admin: 05/28/24 10:49 Dose: Not Given Pharmacy Consult (Pharmacy Renal Dose Adjustment 1 Ea) 1 each XX PRN PRN PRN Reason: CONSULT Stop: 06/27/24 11:06 Pharmacy Consult (Vancomycin Pharmacy To Dose 1 Each Each) 1 each IV QDAY PRN PRN Reason: PROTOCOL Stop: 06/27/24 08:59 Potassium Chloride (Potassium Chloride 20 Meq Tabcr) 40 meq PO X1 ONE Stop: 05/31/24 16:13 Last Admin: 05/31/24 16:59 Dose: Not Given Potassium Chloride (Potassium Chloride 10% 20 Meq/15 Ml Udc) 40 meq PO X1 ONE Stop: 05/31/24 16:46 Last Admin: 05/31/24 16:59 Dose: 40 meq Tramadol HCl (Tramadol Hcl 50 Mg Tablet) 50 mg PO X1 PRN PRN Reason: Pain Stop: 06/03/24 05:16 Tramadol HCl (Tramadol Hcl 50 Mg Tablet) 50 mg PO X1 ONE Stop: 05/29/24 05:37 Last Admin: 05/29/24 05:46 Dose: 50 mg Assessment & Plan Plan The patient is a 63-year-old male with a previous medical history of CAD status post PCI, hypertension, hyperlipidemia, CKD stage IIIb, insulin-dependent type 2 diabetes, HFrEF, osteomyelitis, status post left BKA, right hand third/5 finger amputation who was admitted to the hospital on 05/28 due to shortness of breath. #JADIEL on CKD stage IIIb #Prerenal Azotemia #Hyponatremia Baseline Creatinine level is 1.8 at 05/04 Most likely in the setting of cardiorenal syndrome due to CHF excerbation. 06/01/2024: Labs showed sodium 135, potassium 4.3, BUN 69, creatinine 2.7. Plan: ? Will continue to monitor patient, patient does not want dialysis at this point of time - Bumex on hold until 06/03 ? Avoid nephrotoxic agents ? Renally dose medication ? Monitor daily CMP #Sepsis 2/2 #Osteomyelitis of the right foot #Afib with RVR #new onset Afib #Troponinemia #Acute on chronic HFrEF exacerbation (EF 10-15%) #Acute hypoxic/hypercapnic respiratory failure #History of coronary artery disease s/p stent placement #Cardiorenal syndrome #New dysphagia #Poor p.o. intake #Insulin-dependent type 2 diabetes #Hyperglycemia #Possible superimposed aspiration pneumonia? #Leukocytosis #Microcytic anemia - management as per primary team Plan of care discussed with attending Dr. Fonseca. Susan Alonso MD, PGY 1. Attending Provider Attestation/Addendum Patient seen and examined with resident physician Dr. Davis. Note reviewed, agree with findings and recommendations.
--- NOTE | 2024-06-01 14:48 | PD.RESPRO ---
Documentation for date of: 06/01/24 Subjective Subjective Interval history: Patient evaluated at the bedside, reported poor sleep last night due to pain and discomfort, reported poor p.o. intake due to difficulty swallowing, will order repeat speech evaluation. Reported per oral [place] does not provide adequate pain relief, added Dilaudid 0.25 mg in the setting of CKD for severe pain. Heparin drip discontinued, anticoagulation switched to Eliquis, withheld bumetanide as urine output only 450 mL and worsening renal function. Added nephrology consult to Dr. Fonseca, appreciate recommendations, p.o. bumetanide per day added by cardiology resident starting from the . Noted remarkable drop in WBC count from 19,000-11,000 following source control, de-escalated antibiotics, started on p.o. doxycycline. Exam Vital Signs Temp Pulse Resp BP Pulse Ox O2 Del Method O2 Flow Rate 97.2 F 64 21 H 92/64 94 L Room Air 2 06/01/24 12:00 06/01/24 12:00 06/01/24 12:06/01/24 12:06/01/24 12:06/01/24 12:05/31/24 11:35 Narrative Exam Physical Exam General: Drowsy but arousable, in moderate distress due to pain, HEENT: Normocephalic, atraumatic, mucous membranes moist. Heart: Regular rate and rhythm, no murmurs. Lungs: Clear to auscultation with no wheezing or crackles. Abdomen: Soft, nondistended, nontender, positive bowel sounds. ?No guarding or rebound tenderness. Neurologic: Alert and oriented x3, no gross neurological deficit, and patient able to move all 4 extremities. Extremities: Left BKA. Right BKA site is covered in dressings. Skin: No rash or ecchymoses. Objective Labs 06/01/24 05:00 06/01/24 05:00 Labs: Laboratory Results - last 24 hr 05/31/24 05/31/24 06/01/24 06:15 16:49 05:00 WBC 11.0 H D RBC 3.01 L Hgb 7.4 L Hct 23.7 L MCV 79 L MCH 24.6 L MCHC 31.2 RDW Std Deviation 53.0 H Plt Count 401 D Neut % (Auto) 90 H Lymph % (Auto) 5 L [place] % (Auto) 4 Eos % (Auto) 0 Baso % (Auto) 0 Neut # (Auto) 9.9 H Lymph # (Auto) 0.5 L [place] # (Auto) 0.4 Eos # (Auto) 0.0 Baso # (Auto) 0.0 Immature Gran # (Auto) 0.14 H Absolute Nucleated RBC 0.00 Immature Gran % 1 H Nucleated RBC % 0 APTT 55.5 H D Sodium 138 135 L 135 L Potassium 3.5 D 4.5 D 4.3 Chloride 99 98 99 Carbon Dioxide 26.2 22.7 23.9 Anion Gap 13 14 12 BUN 63 H 69 H Creatinine 2.3 H 2.7 H Estim Creat Clear Calc 28.0 L 22.9 L eGFR 31 L 25 L BUN/Creatinine Ratio 27 H 26 H Glucose 239 H D 224 H Calculated Osmolality 296 H 297 H Calcium 8.3 8.1 L Corrected Calcium 8.8 Magnesium 2.0 Total Bilirubin 0.4 AST < 10 ALT < 7 L Alkaline Phosphatase 75 Total Protein 6.6 Albumin 3.1 L Globulin 3.5 Albumin/Globulin Ratio 0.9 L Vancomycin Trough 06/01/24 08:25 WBC RBC Hgb Hct MCV MCH MCHC RDW Std Deviation Plt Count Neut % (Auto) Lymph % (Auto) [place] % (Auto) Eos % (Auto) Baso % (Auto) Neut # (Auto) Lymph # (Auto) [place] # (Auto) Eos # (Auto) Baso # (Auto) Immature Gran # (Auto) Absolute Nucleated RBC Immature Gran % Nucleated RBC % APTT Sodium Potassium Chloride Carbon Dioxide Anion Gap BUN Creatinine Estim Creat Clear Calc eGFR BUN/Creatinine Ratio Glucose Calculated Osmolality Calcium Corrected Calcium Magnesium Total Bilirubin AST ALT Alkaline Phosphatase Total Protein Albumin Globulin Albumin/Globulin Ratio Vancomycin Trough 23.3 H* Quality Measures Quality Measures VTE prophylaxis Advance care planning discussed with:: patient and spouse Assessment & Plan Assessment Current Active Medications: Generic Name Dose Route Start Last Admin Trade Name Freq PRN Reason Stop Dose Admin Acetaminophen 650 mg 05/28/24 04:05 06/01/24 04:34 Acetaminophen 325 Mg Tablet PO 06/27/24 04:04 650 mg Q6H PRN Administration Pain 1-3 and/or Fever >100.1 Hydrocodone Bitart/Acetaminophen 1 tab 06/01/24 10:38 Hydrocodone/Apap 5/325 Tablet PO 06/06/24 06:35 Q6HR PRN PAIN SCALE 4-6 (Moderate Amiodarone HCl 200 mg 05/29/24 21:00 06/01/24 09:03 Amiodarone Hcl 200 Mg Tablet PO 06/28/24 20:59 200 mg BID KENNY Administration Apixaban 5 mg 06/01/24 21:00 Apixaban 2.5 Mg Tablet PO 07/01/24 20:59 BID KENNY Ascorbic Acid 500 mg 06/01/24 09:00 06/01/24 09:02 Ascorbic Acid 250 Mg Tablet PO 07/01/24 08:59 500 mg BID KENNY Administration Atorvastatin Calcium 80 mg 05/29/24 04:50 05/31/24 20:58 Atorvastatin Calcium 20 Mg Tablet PO 06/28/24 04:49 80 mg HS KENNY Administration Bumetanide 2 mg 06/03/24 09:00 Bumetanide 0.5 Mg Tablet PO 07/03/24 08:59 QDAY KENNY Dextrose 25 ml 05/28/24 04:12 Dextrose 50%-Water Inj 50 Ml Syringe IV 06/27/24 04:11 Q15MIN PRN BG 50-70 responsive npo pt Dextrose 50 ml 05/28/24 04:12 Dextrose 50%-Water Inj 50 Ml Syringe IV 06/27/24 04:11 Q15MIN PRN BG <50 OR BG <70 & pt unresponsive Doxycycline Hyclate 100 mg 06/01/24 11:00 06/01/24 11:03 Doxycycline 100 Mg Tablet PO 06/08/24 10:59 Not Given BID KENNY Glucagon 1 mg 05/28/24 04:12 Glucagon Inj 1 Mg Vial IM Q15MIN PRN BG <70, and no IV access Hydromorphone HCl 0.25 mg 06/01/24 10:35 06/01/24 11:13 Hydromorphone Inj 2 Mg/Ml Vial IVP 06/06/24 10:34 0.25 mg Q4HR PRN Administration PAIN SCALE 7-10 (Severe Insulin Glargine 15 unit 05/28/24 09:00 06/01/24 09:07 Insulin Glargine (Lantus) 5 Unit/0.05 Ml (Per 5 Units) SC 06/27/24 08:59 15 unit BID KENNY Administration Insulin Human Lispro 0 unit 05/28/24 17:00 06/01/24 11:09 Insulin Lispro (Admelog) 1 Unit/0.01 Ml Unit SC 06/27/24 16:59 Not Given ACHS KENNY Protocol Metoprolol Succinate 12.5 mg 05/30/24 09:00 06/01/24 09:03 Metoprolol Succinate Xl 25 Mg Tabcr PO 06/29/24 08:59 12.5 mg QDAY KENNY Administration Ondansetron HCl 4 mg 05/28/24 04:05 06/01/24 11:01 Ondansetron Inj 2 Mg/Ml Inj 2 Ml IV 06/27/24 04:04 4 mg Q6H PRN Administration NAUSEA OR VOMITING Protocol Sennosides 1 tab 05/28/24 09:00 06/01/24 09:04 Senna Tablet PO 06/27/24 08:59 Not Given QDAY KENNY Protocol Zinc Sulfate 220 mg 06/01/24 09:00 06/01/24 09:03 Zinc Sulfate 220 Mg Capsule PO 07/01/24 08:59 220 mg QDAY KENNY Administration Plan 63-year-old male with past medical history of CAD, status post PCI with LAD stents, essential hypertension, hyperlipidemia, CKD stage IIIb, insulin-dependent type 2 diabetes (last A1c 9.0), HFrEF (EF 30 to 35%), osteomyelitis with past surgeries and amputations (left BKA, right hand 3rd-5th finger) secondary to diabetic foot ulcer presenting with shortness of breath requiring starting home oxygen will be admitted for Sepsis 2/2 osteomyelitis, CHF exacerbation and workup of new dysphagia-like symptoms. 06/01/2024 patient evaluated at the bedside, reported poor sleep last night due to pain and discomfort, reported poor p.o. intake due to difficulty swallowing, will order repeat speech evaluation. Reported per oral [place] does not provide adequate pain relief, added Dilaudid 0.25 mg in the setting of CKD for severe pain. Heparin drip discontinued, anticoagulation switched to Eliquis, withheld bumetanide as urine output only 450 mL and worsening renal function. Added nephrology consult to Dr. Fonseca, appreciate recommendations, p.o. bumetanide per day added by cardiology resident starting from the . Noted remarkable drop in WBC count from 19,000-11,000 following source control, de-escalated antibiotics, started on p.o. doxycycline. #Sepsis 2/2 #Osteomyelitis of the right foot WBC 20.7 HR 150s Elevated creatinine 2.5, lactic 4.2, CRP 17.5 ESR 103 XR shows osteomyelitis amputated distal first and second metatarsals, air in the soft tissue Emergency Management System Director Dr. Henson Per family, patient has been on several oral antibiotics in the past month but still has some oozing and purulence in the area Lactic 4.2->3.9-> 3.1 Received 30cc/kg bolus dose in the ED for sepsis. Held IVF afterwards due to concern for fluid overload in setting of acute on chronic HFrEF exacerbation Dr. Rudolph consulting with anesthesia for possible peripheral nerve block instead of general anesthesia Plan: R BKA per Dr. Rudolph 05/31/2024 Will start the patient on IV Zosyn (renally dosed) and Vancomycin(renally dosed) Wound culture ordered Wound care referral General Surgery, Dr. Rudolph, has been consulted appreciate recommendations #Afib with RVR #new onset Afib #Troponinemia Patient denies hx of Afib; troponin elevated at 0.095->downtrending Rapid response called @ 1140 05/28 for Afib with RVR K 4, Mg 2.4 Phos 4.5 Cardiology consulted; appreciate recommendations Plan: Amiodarone drip->Amiodarone 200mg BID Metoprolol 12.5mg XL QD as BP permits K>4; Mg >2 Heparin drip->D/C'd before surgery->Will restart 12 hours after surgery Heparin drip switched to Eliquis #Acute on chronic HFrEF exacerbation (EF 10-15%) #Acute hypoxic/hypercapnic respiratory failure #History of coronary artery disease s/p stent placement #Cardiorenal syndrome Patient has extensive past medical history of cardiac disease; heart failure along with CAD and follows Dr. Velazquez, cardiology, outpatient Apparently last visit was about a month ago and apparently his heart failure is about the same has not improved or worsened Echo from 01/2024 shows: Mildly dilated LV. Normal wall thickness. Estimated EF 30-35 %. Global LV systolic function is severely decreased. RV not well visualized. [id number] MR. Echo 06/03: EF 10-15% Grade III DD akinetic apex with severe global hypokinesis, moderate PAH, MR, dilated cardiomyopathy Cardiology consulted; appreciate recommendations Plan: Strict I's and O's Daily weight Oxygen supplementation as needed Fluid restriction 1500 mL daily Bumex 2mg BID-> holding Bumex due to hypokalemia #JADIEL on CKD stage IIIb #Prerenal Azotemia #Hyponatremia Baseline 1.8(05/04) Given 2 L of IV fluids in the ED; then 40mg Lasix by admitting team Prerenal azotemia likely secondary to poor p.o. intake/dehydration versus CHF exacerbation and vascular congestion Will monitor renal function; needs diuresis for HFrEF and antibiotics for osteomyelitis but concern for damage to kidneys Plan: Renally dose medication Avoid nephrotoxic agents Monitor sodium correction, Fluid restriction as above #New dysphagia #Poor p.o. intake Patient has been having poor p.o. intake for the past several days Per , patient has dysphagia to both solid and liquid which is a new symptom Apparently, the patient gargles and has some remnant after eating or drinking fluids Plan: Speech eval ordered->recommends dysphagia 2 with mildly thick liquids Possible GI consult #Insulin-dependent type 2 diabetes #Hyperglycemia A1C 10.2; Lantus 15u BID at home BG 600+ in ED, BHB 1.7 Plan: Lantus 15u BID Sliding scale insulin resistant every 6 hours #Possible superimposed aspiration pneumonia? #Leukocytosis Patient presenting with acute shortness of breath requiring home oxygen use Patient has been on oral antibiotics for the past several weeks Patient currently in the ED on 2 to 3 L nasal cannula which is not usual for him Chest x-ray does show bilateral pneumonia versus vascular congestion; in setting of dysphagia possible aspiration Plan: Started patient on broad-spectrum IV antibiotic, Zosyn (renally dosed)/Vancomycin(renally dosed) Follow-up on blood cultures #Microcytic anemia Patient has had anemia since being admitted sometime in January Hemoglobin has consistently been below 10 since that time with no improvement Iron panel and ferritin from the past anemia of chronic disease versus less likely iron deficiency anemia Plan: Follow-up outpatient and refer to [facility] Management: Lines: PIV Diet: Dysphagia 1 Bowel: Senna GI prophylaxis: Protonix DVT prophylaxis: Heparin drip Dispo: Telemetry Code: Full The patient's plan was discussed with attending Dr. Tiffanie Montanez PGY2 Attending Provider Attestation/Addendum I have examined the patient, reviewed labs and imaging findings, discussed the case with the resident(s), and reviewed entered orders. I agree with the plan of care as outlined in this note, with these additional summaries/recommendations: Patient is a 63-year-old male with a extensive past medical history including uncontrolled diabetes mellitus type 2, HFrEF (EF 30%), CAD with LAD stents, primary hypertension, hyperlipidemia, CKD stage IIIb, and history of osteomyelitis with multiple amputations in the past presented to [facility] emergency department on 05/28/2024 with chief complaint of shortness of breath. Patient seen at bedside. No acute overnight events. Patient is POD #1 s/p right leg BKA today for severe osteomyelitis and gangrene of the right foot. Patient was deemed high risk given his cardiac history for surgery although appears to have tolerated the procedure well. Continue pain management. Sigificant improvement in leukocytosis and we will deescalate abx from IV vancomycin to PO rocephin. During hospitalization patient developed new onset atrial fibrillation with RVR. Now in sinus rhythm and continue amiodarone 200 mg p.o. twice daily. Previously on heparin gtt. for elevated [id number] score and we will transition to NOAC. Patient has severe underlying heart failure. Echocardiogram completed which revealed severe systolic dysfunction, EF 10 to 15%, akinetic apex with severe global hypokinesis. Continue preload reduction with fluid restriction and hold Bumex today for worsening JADIEL. Hold starting afterload reduction with EMERALD/ARB or Entresto given patient's renal function and soft blood pressure. Avoid starting neurohormonal blockade during acute exacerbation. We will continue to institute goal directed medical therapy as tolerated although have been unsuccessful to date given soft blood pressure. Patient was also found to have JADIEL on CKD stage IIIb. Etiology thought to be secondary to cardiorenal syndrome although now worsening with bumex. Consult nephrology, recommendations appreciated. Blood sugars continue to improve with basal and bolus insulin. Target blood sugar of 140-180 while hospitalized. Patient has severe PAD with multiple amputations; continue Atorvastatin & restart aspirin if hemoglobin remains stable. Repeat hematology and chemistry panel in AM. Prognosis guarded. Dr. Moreno
--- NOTE | 2024-06-01 15:15 | PC.SS ---
Special Loan Officer (PK) Anette received a phone call from patient's , Shreya who reported that after review of SNF choices, she decided for patient to attend [facility].
[2024-06-01 15:37] LABS: Partial Thromboplastin Time 30.8 Seconds (22.0-36.0)
[2024-06-01] MEDS: APIXABAN 2.5 MG TABLET 5 MG PO (20:26)
[2024-06-01] MEDS: DOXYCYCLINE 100 MG TABLET PO (20:27)
[2024-06-02] VITALS (9 sets, daily range): BP systolic 95–107; BP diastolic 65–74; PULSE 64–75; RESP 15–20; TEMP 36–36.2; O2SAT 93–100; BMI 21.2
[2024-06-02 05:55] LABS: Basophils % (Auto) 0 % (0-2.5); Eosinophils % (Auto) 0 % (0-10); Hematocrit 24.8 % (41.0-53.0); Immature Granulocytes % (Auto) 1 % (0-0); Lymphocytes # (Auto) 0.8 Thou/mm3 (1.0-4.8); Lymphocytes % (Auto) 6 % (10-50); Mean Corpuscular HGB Conc 30.2 g/dl (31.0-37.0); Mean Corpuscular Hemoglobin 23.7 pg (25.0-35.0); Mean Corpuscular Volume 78 fL (80-100); Monocytes # (Auto) 0.9 Thou/mm3 (0.0-0.8); Monocytes % (Auto) 7 % (0-12); Neutrophils # (Auto) 10.4 Thou/mm3 (1.8-7.7); Neutrophils % (Auto) 86 % (37-80); Nucleated Red Blood Cell % 0 /100 WBC (0); Platelet Count 367 Thou/mm3 (140-440); RDW Standard Deviation 51.9 fL (35.1-43.9); Red Blood Count 3.17 Miln/mm3 (4.50-5.90); White Blood Count 12.1 Thou/mm3 (3.8-10.6)
[2024-06-02 06:03] LABS: Hemoglobin 7.5 g/dL (13.5-16.0)
[2024-06-02 06:17] LABS: INR 1.1 (0.9-1.3); Partial Thromboplastin Time 35.8 Seconds (22.0-36.0); Prothrombin Time 12.4 Seconds (9.0-12.2)
[2024-06-02 06:19] LABS: Alanine Aminotransferase < 7 U/L (10-49); Albumin/Globulin Ratio 0.9 (1.2-2.2); Alkaline Phosphatase 78 U/L (46-116); Anion Gap 14 (7-16); Aspartate Amino Transferase 19 U/L (0-34); BUN/Creatinine Ratio 24 Ratio (12-20); Bilirubin,Total 0.4 mg/dL (0.3-1.2); Blood Urea Nitrogen 73 mg/dL (9-23); Calcium 8.5 mg/dL (8.3-10.6); Calcium (Corrected) 9.3 mg/dL (8.5-10.1); Carbon Dioxide 22.9 mMol/L (20.0-31.0); Chloride 100 mMol/L (98-107); Creatinine (Component) 3.1 mg/dL (0.6-1.3); Estimated Creatinine Clearance 20.6 mL/min (>60); Globulin 3.4 gm/dL (2.3-3.5); Glucose 166 mg/dL (74-106); Magnesium 2.1 mg/dL (1.6-2.6); Osmolality,Calculated 299 (275-295); Potassium 4.2 mMol/L (3.4-5.1); Sodium 137 mMol/L (136-145); Total Protein 6.4 gm/dL (5.7-8.2); eGFR 21 See Note
--- NOTE | 2024-06-02 09:03 | PC.SS ---
Follow up note: SS spoke to Cindy from [facility] who explained she will look into patient's health insurance to inquire if he needs insurance authorization. Patient's kidney's not improving. Pt is new BKA.
[2024-06-02] MEDS: HYDROmorphone INJ 2 MG/ML VIAL 0.25 MG IVP ×2 (09:34→22:12)
[2024-06-02] MEDS: ONDANSETRON INJ 2 MG/ML INJ 2 ML 4 MG IV ×3 (09:34→22:12)
[2024-06-02] MEDS: ZINC SULFATE 220 MG CAPSULE PO (09:35)
[2024-06-02] MEDS: APIXABAN 2.5 MG TABLET 5 MG PO ×2 (09:35→22:15)
[2024-06-02] MEDS: ASCORBIC ACID 250 MG TABLET 500 MG PO ×2 (09:35→22:16)
[2024-06-02] MEDS: AMIODARONE HCL 200 MG TABLET PO ×2 (09:36→22:16)
[2024-06-02] MEDS: DOXYCYCLINE 100 MG TABLET PO ×2 (09:36→22:16)
[2024-06-02] MEDS: SENNA TABLET 1 TAB PO (09:36)
[2024-06-02] MEDS: METOPROLOL SUCCINATE XL 25 MG TABCR 12.5 MG PO (09:36)
--- NOTE | 2024-06-02 10:33 | PD.NEPHPROG ---
Documentation for date of: 06/02/24 Subjective Subjective Interval history: Reason for consult: JADIEL on CKD History of present illness: The patient is a 63-year-old male with a previous medical history of CAD status post PCI, hypertension, hyperlipidemia, CKD stage IIIb, insulin-dependent type 2 diabetes, HFrEF, osteomyelitis, status post left BKA, right hand third/5 finger amputation who was admitted to the hospital on 05/28 due to shortness of breath. Hospital course: He was initially admitted due to CHF exacerbation and underlying infection pneumonia versus osteomyelitis. Cardiology was consulted, echo showed ejection fraction of 10% and also had a rapid response due to tachycardia, was started on amiodarone due to A-fib with RVR, beta-blockers and diuretics. Surgery was consulted due to right foot ulcer, x-ray of the right foot showed osteomyelitis and he underwent right-sided BKA. Nephrology was consulted for JADIEL on CKD. 06/01/2024: Patient was seen and examined by the bedside with family members present. Patient verbally agreed to share his medical condition updates with his family present. He denies shortness of breath, chest pain, headache, dysuria. He reports that his pain levels is 8 out of 10, declines additional pain meds. Patient condition was discussed with him, he was explained that his kidney function has worsened and he may require dialysis in the future. Patient stated that he does not want dialysis. Labs showed hemoglobin 7.4, sodium 135, potassium 4.3, BUN 69, creatinine 2.7, EGFR 25. Will continue to monitor patient closely for now. Bumex on hold till 06/03 for now. 06/02/2024 patient currently seen in telemetry. Resting comfortably. Noted family did not want any dialysis. Blood pressure 100/68, heart rate 72. WBC 12.1, hemoglobin 7.5, platelets 367. Sodium 137, potassium 4.2, BUN 73, creatinine 3.1, calcium 9.8, magnesium 2.1, LFTs normal Review of Systems Review of Systems Narrative Review of Systems: General: Denies weight loss, fever and chills. HEENT: Denies changes in vision and hearing. Resp: Denies SOB, cough and wheezing. CVS: Denies palpitations and CP. GI: Denies abdominal pain, nausea, vomiting and diarrhea. : Denies dysuria and urinary frequency. MSK: Denies myalgia and joint pain. Denies rash and pruritus. Reports pain in the right BKA stump. Neuro: Denies headache and syncope. Psych: Family members report irritative mood. Exam Vital Signs Temp Pulse Resp BP Pulse Ox O2 Del Method O2 Flow Rate 36.0 C 65 16 98/65 99 Room Air 2 06/02/24 08:00 06/02/24 09:36 06/02/24 08:00 06/02/24 09:36 06/02/24 08:00 06/02/24 08:00 06/01/24 22:34 Narrative Exam Physical Exam General: Awake and in no acute distress. Dry mucosa HEENT: Normocephalic, atraumatic, mucous membranes moist. Heart: Regular rate and rhythm, no murmurs. Lungs: Clear to auscultation with no wheezing or crackles. Abdomen: Soft, nondistended, nontender, positive bowel sounds. ?No guarding or rebound tenderness. Neurologic: Alert and oriented x3, no gross neurological deficit, and patient able to move all 4 extremities. Extremities: Left BKA. Right BKA site is covered in dressings. Skin: No rash or ecchymoses. Objective Labs 06/02/24 04:56 06/02/24 04:56 Labs: Laboratory Results - last 24 hr 06/01/24 06/02/24 15:10 04:56 WBC 12.1 H RBC 3.17 L Hgb 7.5 L Hct 24.8 L MCV 78 L MCH 23.7 L MCHC 30.2 L RDW Std Deviation 51.9 H Plt Count 367 D Neut % (Auto) 86 H Lymph % (Auto) 6 L [place] % (Auto) 7 Eos % (Auto) 0 Baso % (Auto) 0 Neut # (Auto) 10.4 H Lymph # (Auto) 0.8 L [place] # (Auto) 0.9 H Eos # (Auto) 0.0 Baso # (Auto) 0.0 Immature Gran # (Auto) 0.10 H Absolute Nucleated RBC 0.00 Immature Gran % 1 H Nucleated RBC % 0 PT 12.4 H INR 1.1 APTT 30.8 D 35.8 Sodium 137 Potassium 4.2 Chloride 100 Carbon Dioxide 22.9 Anion Gap 14 BUN 73 H Creatinine 3.1 H Estim Creat Clear Calc 20.6 L eGFR 21 L BUN/Creatinine Ratio 24 H Glucose 166 H D Calculated Osmolality 299 H Calcium 8.5 Corrected Calcium 9.3 Magnesium 2.1 Total Bilirubin 0.4 AST 19 ALT < 7 L Alkaline Phosphatase 78 Total Protein 6.4 Albumin 3.0 L Globulin 3.4 Albumin/Globulin Ratio 0.9 L Assessment & Plan Additional Assessment & Plan Additional Plan: The patient is a 63-year-old male with a previous medical history of CAD status post PCI, hypertension, hyperlipidemia, CKD stage IIIb, insulin-dependent type 2 diabetes, HFrEF, osteomyelitis, status post left BKA, right hand third/5 finger amputation who was admitted to the hospital on 05/28 due to shortness of breath. #JADIEL on CKD stage IIIb #Prerenal Azotemia #Hyponatremia Baseline Creatinine level is 1.8 at 05/04 Most likely in the setting of cardiorenal syndrome due to CHF excerbation. 05/12/2024: Labs showed sodium 135, potassium 4.3, BUN 73, creatinine 3.1. Plan: ? Will continue to monitor patient, patient does not want dialysis at this point of time - Bumex on hold until 06/03 ? Avoid nephrotoxic agents ? Renally dose medication ? Monitor daily CMP #Sepsis 07/13 #Osteomyelitis of the right foot #Afib with RVR #new onset Afib #Troponinemia #Acute on chronic HFrEF exacerbation (EF 10-15%) #Acute hypoxic/hypercapnic respiratory failure #History of coronary artery disease s/p stent placement #Cardiorenal syndrome #New dysphagia #Poor p.o. intake #Insulin-dependent type 2 diabetes #Hyperglycemia #Possible superimposed aspiration pneumonia? #Leukocytosis #Microcytic anemia - management as per primary team Plan of care discussed with primary team. Encourage p.o. fluids. Diuretics held. Prognosis guarded. Quality - progress note Quality Measures Quality Measures: VTE prophylaxis Reason for Continued Stay Reason for Continued Stay: further monitoring
--- NOTE | 2024-06-02 10:35 | PCS.ST ---
pt refused to work with HOSPICE COORDINATOR and take PO trials. Per MD note, pt is having difficulty swallowing; however, is refusing to take PO trials or eat meals d/t diet restriction. at bedside confirmed he is taking thin liquids and coughing. HOSPICE COORDINATOR recommends continue on D2 and MT2 at this time. HOSPICE COORDINATOR will continue to follow.
--- NOTE | 2024-06-02 13:07 | PD.SURPROG ---
Documentation for date of: 06/02/24 Subjective Subjective Brief History: Patient has had the chronic osteomyelitis and peripheral vascular disease. He has noticed right foot infection recently with a dry gangrene. He also was found to have coronary artery disease. He developed SVT and was transferred to telemetry this afternoon. Patient has had a B-K amputation on the left side last year Narrative: The patient's dressing is dry without any drainage Exam Vital Signs Temp Pulse Resp BP Pulse Ox O2 Del Method O2 Flow Rate 97.0 F 72 19 107/74 93 L Room Air 2 06/02/24 12:00 06/02/24 12:00 06/02/24 12:00 06/02/24 12:00 06/02/24 12:00 06/02/24 12:00 06/01/24 22:34 His vital signs are normal Assessment & Plan Plan Plan: We shall remove the dressing tomorrow and look at the flaps. Procedures Procedures Below-knee amputation of the right leg
--- NOTE | 2024-06-02 13:41 | ESPR_ITS ---
<Statement entered by Sandra Jaramillo MD - 06/02/24 15:24> Patient was seen and examined at bedside. #Dysphagia and poor oral intake patient appears to be in mild agitation and upset. When I tried to ask him about his condition he reported that he wants food from home he does not want food from the hospital. As per his his fluid intake has been decreasing significantly for that reason they will try to bring homemade food. Speech therapist recommended dysphagia diet 3, and also started the patient mirtazapine as the patient showed signs and symptoms of depression and anxiety and also anorexia. #HFrEF EF 10 to 15%, CAD status post stent placement, cardiorenal syndrome : His blood pressure still on the soft side however this mentating well, hemoglobin stable at 7.5, however his serum creatinine steadily worsening for the past 3 days increasing from 2.3-3.1 today. Nephrology team on board Dr. Fonseca recommended to hold the Bumex all started from tomorrow 03 June. Patient does not seem to be overloaded, auscultation was clear with no added entry bilaterally. No lower extremity edema. Will continue fluid restriction and strict in and out Regarding his A-fib with RVR the patient is on amiodarone 200 mg twice daily. Patient was started on BB dose of metoprolol 12.5 mg p.o. daily with close monitoring of blood pressure. Regarding his surgical wound Dr. Rudolph will have second look today at bedside and do dressing. Were pending for his recommendations if needed. We ordered for the patient PT evaluation for SNF placement for rehab and also wound care. Wound culture resulted on MRSA growth for that reason patient will be continued on doxycycline. - Patient's plan and care discussed with my attending, Dr. Danisha Jaramillo MD Internal Medicine PGY-2 Documentation for date of: 06/02/24 Subjective Subjective Interval history: Patient examined at bedside today. Family present at bedside today. No acute overnight events. Says that he is doing okay, is a bit tired, says that he will try to eat more. Denies having trouble swallowing at this time. Pain is controlled at this time. No other complaints at this time. Exam Vital Signs Temp Pulse Resp BP Pulse Ox O2 Del Method O2 Flow Rate 97.0 F 72 19 107/74 93 L Room Air 2 06/02/24 12:00 06/02/24 12:00 06/02/24 12:00 06/02/24 12:00 06/02/24 12:00 06/02/24 12:00 06/01/24 22:34 Narrative Exam General:AAOx3, NAD HEENT: Normocephalic, atraumatic, dry mucous membranes Heart: Regular rate and rhythm, no murmurs. Lungs: Clear to auscultation with no wheezing or crackles. Abdomen: Soft, nondistended, nontender, positive bowel sounds. ?No guarding or rebound tenderness. Neurologic: Alert and oriented x3, no gross neurological deficit, and patient able to move all 4 extremities. Extremities: Left BKA. Right BKA site is covered in dressings, numerous digits in R hand missing Skin: Skin turgor present in UE bilat Objective Labs 06/04/24 05:00 06/04/24 05:18 Labs: Laboratory Results - last 24 hr 06/01/24 06/02/24 15:10 04:56 WBC 12.1 H RBC 3.17 L Hgb 7.5 L Hct 24.8 L MCV 78 L MCH 23.7 L MCHC 30.2 L RDW Std Deviation 51.9 H Plt Count 367 D Neut % (Auto) 86 H Lymph % (Auto) 6 L [place] % (Auto) 7 Eos % (Auto) 0 Baso % (Auto) 0 Neut # (Auto) 10.4 H Lymph # (Auto) 0.8 L [place] # (Auto) 0.9 H Eos # (Auto) 0.0 Baso # (Auto) 0.0 Immature Gran # (Auto) 0.10 H Absolute Nucleated RBC 0.00 Immature Gran % 1 H Nucleated RBC % 0 PT 12.4 H INR 1.1 APTT 30.8 D 35.8 Sodium 137 Potassium 4.2 Chloride 100 Carbon Dioxide 22.9 Anion Gap 14 BUN 73 H Creatinine 3.1 H Estim Creat Clear Calc 20.6 L eGFR 21 L BUN/Creatinine Ratio 24 H Glucose 166 H D Calculated Osmolality 299 H Calcium 8.5 Corrected Calcium 9.3 Magnesium 2.1 Total Bilirubin 0.4 AST 19 ALT < 7 L Alkaline Phosphatase 78 Total Protein 6.4 Albumin 3.0 L Globulin 3.4 Albumin/Globulin Ratio 0.9 L Quality Measures Quality Measures VTE prophylaxis Advance care planning discussed with:: patient Assessment & Plan Assessment Current Active Medications: Generic Name Dose Route Start Last Admin Trade Name Ana PRN Reason Stop Dose Admin Acetaminophen 650 mg 05/28/24 04:05 06/01/24 04:34 Acetaminophen 325 Mg Tablet PO 06/27/24 04:04 650 mg Q6H PRN Administration Pain 1-3 and/or Fever >100.1 Hydrocodone Bitart/Acetaminophen 1 tab 06/01/24 10:38 Hydrocodone/Apap 5/325 Tablet PO 06/06/24 06:35 Q6HR PRN PAIN SCALE 4-6 (Moderate Amiodarone HCl 200 mg 05/29/24 21:00 06/02/24 09:36 Amiodarone Hcl 200 Mg Tablet PO 06/28/24 20:59 200 mg BID KENNY Administration Apixaban 5 mg 06/01/24 21:00 06/02/24 09:35 Apixaban 2.5 Mg Tablet PO 07/01/24 20:59 5 mg BID KENNY Administration Ascorbic Acid 500 mg 06/01/24 09:00 06/02/24 09:35 Ascorbic Acid 250 Mg Tablet PO 07/01/24 08:59 500 mg BID KENNY Administration Atorvastatin Calcium 80 mg 05/29/24 04:50 06/01/24 20:26 Atorvastatin Calcium 20 Mg Tablet PO 06/28/24 04:49 Not Given HS KENNY Bumetanide 2 mg 06/03/24 09:00 Bumetanide 0.5 Mg Tablet PO 07/03/24 08:59 QDAY KENNY Dextrose 25 ml 05/28/24 04:12 Dextrose 50%-Water Inj 50 Ml Syringe IV 06/27/24 04:11 Q15MIN PRN BG 50-70 responsive npo pt Dextrose 50 ml 05/28/24 04:12 Dextrose 50%-Water Inj 50 Ml Syringe IV 06/27/24 04:11 Q15MIN PRN BG <50 OR BG <70 & pt unresponsive Doxycycline Hyclate 100 mg 06/01/24 11:00 06/02/24 09:36 Doxycycline 100 Mg Tablet PO 06/08/24 10:59 100 mg BID KENNY Administration Glucagon 1 mg 05/28/24 04:12 Glucagon Inj 1 Mg Vial IM Q15MIN PRN BG <70, and no IV access Hydromorphone HCl 0.25 mg 06/01/24 10:35 06/02/24 09:34 Hydromorphone Inj 2 Mg/Ml Vial IVP 06/06/24 10:34 0.25 mg Q4HR PRN Administration PAIN SCALE 7-10 (Severe Insulin Glargine 15 unit 05/28/24 09:00 06/02/24 09:46 Insulin Glargine (Lantus) 5 Unit/0.05 Ml (Per 5 Units) SC 06/27/24 08:59 Not Given BID COUNT INCLUDES [facility] Insulin Human Lispro 0 unit 05/28/24 17:00 06/02/24 11:51 Insulin Lispro (Admelog) 1 Unit/0.01 Ml Unit SC 06/27/24 16:59 Not Given ACHS COUNT INCLUDES THE [facility] Protocol Metoprolol Succinate 12.5 mg 05/30/24 09:00 06/02/24 09:36 Metoprolol Succinate Xl 25 Mg Tabcr PO 06/29/24 08:59 12.5 mg QDAY COUNT INCLUDES THE [facility] Administration Mirtazapine 7.5 mg 06/03/24 09:00 Mirtazapine 15 Mg Tablet PO 07/03/24 08:59 QDAY COUNT INCLUDES THE [facility] Ondansetron HCl 4 mg 06/02/24 11:36 Ondansetron Inj 2 Mg/Ml Inj 2 Ml IV 07/02/24 11:35 Q6HR PRN NAUSEA OR VOMITING Protocol Sennosides 1 tab 05/28/24 09:00 06/02/24 09:36 Senna Tablet PO 06/27/24 08:59 1 tab QDAY COUNT INCLUDES THE [facility] Administration Protocol Zinc Sulfate 220 mg 06/01/24 09:00 06/02/24 09:35 Zinc Sulfate 220 Mg Capsule PO 07/01/24 08:59 220 mg QDAY COUNT INCLUDES THE [facility] Administration Plan 63-year-old male with past medical history of CAD, status post PCI with LAD stents, essential hypertension, hyperlipidemia, CKD stage IIIb, insulin- dependent type 2 diabetes (last A1c 9.0), HFrEF (EF 30 to 35%), osteomyelitis with past surgeries and amputations (left BKA, right hand 3rd-5th finger) secondary to diabetic foot ulcer presenting with shortness of breath requiring starting home oxygen will be admitted for Sepsis 2/2 osteomyelitis, CHF exacerbation and workup of new dysphagia-like symptoms. 06/01/2024 patient evaluated at the bedside, reported poor sleep last night due to pain and discomfort, reported poor p.o. intake due to difficulty swallowing, will order repeat speech evaluation. Reported per oral [place] does not provide adequate pain relief, added Dilaudid 0.25 mg in the setting of CKD for severe pain. Heparin drip discontinued, anticoagulation switched to Eliquis, withheld bumetanide as urine output only 450 mL and worsening renal function. Added nephrology consult to Dr. Fonseca, appreciate recommendations, p.o. bumetanide per day added by cardiology resident starting from the . Noted remarkable drop in WBC count from 19,000-11,000 following source control, de-escalated antibiotics, started on p.o. doxycycline. #Sepsis 2/ #Osteomyelitis of the right foot WBC 20.7 HR 150s Elevated creatinine 2.5, lactic 4.2, CRP 17.5 ESR 103 XR shows osteomyelitis amputated distal first and second metatarsals, air in the soft tissue Studio Owner Dr. Henson Per family, patient has been on several oral antibiotics in the past month but still has some oozing and purulence in the area Lactic 4.2->3.9-> 3.1 Received 30cc/kg bolus dose in the ED for sepsis. Held IVF afterwards due to concern for fluid overload in setting of acute on chronic HFrEF exacerbation Dr. Rudolph consulting with anesthesia for possible peripheral nerve block instead of general anesthesia Plan: General surgery on consult, apprec recs Will start the patient on IV Zosyn (renally dosed) and Vancomycin(renally dosed) F/u wound culture Wound care Vitamin C and Zinc for wound healing #Afib with RVR #new onset Afib #Troponinemia Patient denies hx of Afib; troponin elevated at 0.095->downtrending Rapid response called @ 1140 05/28 for Afib with RVR Plan: Cardiology on culture appreciate recs Continue amiodarone 200mg BID Metoprolol 12.5mg XL QD as BP permits K>4; Mg >2 #Acute on chronic HFrEF exacerbation (EF 10-15%) #Acute hypoxic/hypercapnic respiratory failure #History of coronary artery disease s/p stent placement #Cardiorenal syndrome Patient has extensive past medical history of cardiac disease; heart failure along with CAD and follows Dr. Velazquez, cardiology, outpatient Apparently last visit was about a month ago and apparently his heart failure is about the same has not improved or worsened Echo from 01/2024 shows: Mildly dilated LV. Normal wall thickness. Estimated EF 30-35 %. Global LV systolic function is severely decreased. RV not well visualized. [id number] MR. Echo 06/03: EF 10-15% Grade III DD akinetic apex with severe global hypokinesis, moderate PAH, MR, dilated cardiomyopathy Plan: Cardiology consulted; appreciate recommendations Strict I's and O's Daily weight Oxygen supplementation as needed Fluid restriction 1500 mL daily Resuming Bumex 2mg BID tomorrow due to JADIEL #JADIEL on CKD stage IIIb #Prerenal Azotemia #Hyponatremia Baseline 1.8(05/04) Given 2 L of IV fluids in the ED; then 40mg Lasix by admitting team Prerenal azotemia likely secondary to poor p.o. intake/dehydration versus CHF exacerbation and vascular congestion Will monitor renal function; needs diuresis for HFrEF and antibiotics for osteomyelitis but concern for damage to kidneys Plan: Renally dose medication Avoid nephrotoxic agents Monitor sodium correction, Fluid restriction as above #New dysphagia #Poor p.o. intake Patient has been having poor p.o. intake for the past several days Per , patient has dysphagia to both solid and liquid which is a new symptom Plan: Speech eval ordered->recommends dysphagia 2 with mildly thick liquids Will try Remeron 7.5 mg #Insulin-dependent type 2 diabetes #Hyperglycemia A1C 10.2; Lantus 15u BID at home BG 600+ in ED, BHB 1.7 Plan: Lantus 15u BID Sliding scale insulin resistant every 6 hours #Possible superimposed aspiration pneumonia?, resolved #Leukocytosis, improving Patient presenting with acute shortness of breath requiring home oxygen use Patient has been on oral antibiotics for the past several weeks Patient currently in the ED on 2 to 3 L nasal cannula which is not usual for him Chest x-ray does show bilateral pneumonia versus vascular congestion; in setting of dysphagia possible aspiration Blood cultures no growth after 5 days Plan: On doxy As above #Microcytic anemia Patient has had anemia since being admitted sometime in January Hemoglobin has consistently been below 10 since that time with no improvement Iron panel and ferritin from the past anemia of chronic disease versus less likely iron deficiency anemia Plan: Follow-up outpatient and refer to compressor battery pellets #Health Maintenance Disposition: Telemetry DVT prophylaxis: Eliquis GI prophylaxis: Protonix Diet: Dysphagia 2 carbohydrate consistent CODE STATUS: Full Patient seen and care discussed with my senior resident, Dr. Jaramillo, and my attending physician, Dr. Danisha Bassett, PGY-1 Attending Provider Attestation/Addendum I reviewed labs, imaging, EKG, home medications and prior available records. Face to face evaluation was performed by me. I have personally examined the patient and discussed assessment and plan with the IM team. I reviewed the resident note and agree with the plan with exceptions as below. Osteomyelitis of right foot status post right BKA History of left BKA Atrial fibrillation with RVR HFrEF with EF 10 to 15% JADIEL on CKD stage IV Uncontrolled diabetes mellitus with hyperglycemia Loss of appetite Debility Surgery is following status post BKA. Continue wound care. Continue doxycycline for associated cellulitis Hold diuretics for today. Resume Bumex 2 mg daily starting 06/03 Monitor I's and O's Continue Eliquis and amiodarone. Monitor heart rate Monitor kidney function. Avoid nephrotoxins. Renally dosed medications Insulin long-acting plus sliding scale insulin. Monitor fingersticks Ordered PT evaluation
--- NOTE | 2024-06-02 15:30 | PD.IMPROG ---
Documentation for date of: 06/02/24 Subjective Subjective Interval history: Patient was seen at bedside this morning. No overnight events. Reviewed clinical research monitor and patient was SR with occasional PVCs Patient with successful right BKA without any major complications and will have wound check tomorrow and plans to discharge to a rehab or home. Kidney function continues to worsen with a creatinine of 2.8 and BUN of 73. Recommend to continue to hold Bumex for now and can restart at the time of discharge with Bumex 2 mg once daily as outpatient Patient does not appear to be fluid overloaded right now. Patient continues on amiodarone 200 mg twice daily Recommend to continue metoprolol XL and titrate if blood pressure allows Completed heparin drip. Patient is not a candidate for any invasive cardiac intervention at this time given multiple comorbidities, but he can be treated medically with goal-directed medical therapy. Potassium 4.3 and magnesium 2 today recommend to keep potassium magnesium above 4 and to respectively to avoid any further arrhythmias. Echo on 05/28/2024 had the following findings Mildly dilated LV size. Severe systolic dysfunction. Estimated EF 10-15% Grade III DD with Akinetic apex along with severe global hypokinesis. Normal RV size. Moderate RV systolic dysfunction. Estimated RVSP 50mmHg. Atleast moderate PAH Moderate MR. Mild to moderate TR, Mild AI and PI. Mild biatrial dilation with IVC mildly dilated. Overall picture of dilated cardiomyopathy Cardiac catheterization completed in March 2022 showed severe double vessel coronary artery disease involving the LAD and LCX. There is severe 90%mid LAD disease with tandem lesions and extending all the way into the distal LAD, severe 90% disease in the proximal and mid portion of the medium-sized OM1, severe diffuse disease noted of his small OM2, there is moderate 50% disease of the distal left main, which is moderately calcified involving the ostial LAD with 60% stenosis and ostial LCX with 70% stenosis. RCA is a large caliber artery providing good supply with mild diffuse disease. 2. Given the extensive nature of the disease and poor targets for bypass, we will plan to treat the patient aggressively with medications and then followup closely prior to any intervention as his symptoms are only shortness of breath. Exam Vital Signs Temp Pulse Resp BP Pulse Ox O2 Del Method O2 Flow Rate 97.0 F 72 19 107/74 93 L Room Air 2 06/02/24 12:00 06/02/24 12:00 06/02/24 12:00 06/02/24 12:00 06/02/24 12:00 06/02/24 12:00 06/01/24 22:34 Narrative Exam General: A/O x3, ill-appearing, thin. Eyes: PERRL, EOMI. Anicteric, vision grossly intact. Ears: No ear pain, no ear discharge, Hearing grossly intact. Nose: No nasal discharge. Mouth/Throat: Dry mucous membranes, no redness, no lesions. Neck: Neck supple, non-tender, no cervical lymphadenopathy. Lungs: Clear JOHN to auscultation and percussion, No accessory muscle use. Cardio: Normal S1/S2, regular rhythm, no murmurs, no JVD Abdomen: Firm without distension, non-tender, peristalsis present, no guarding or rebound. Extremities: R upper 3-5 digit amputation, JOHN BKA, R BKA covered by clean dressing, no peripheral edema , non-tender. Skin: No rashes, no lesions, warm to touch. Neuro: No focal neurological deficits. Motor and sensory intact. Psych: Cooperative, appropriate mood and effect. Objective Labs 06/03/24 05:21 06/03/24 05:21 Labs: Laboratory Results - last 24 hr 06/01/24 06/02/24 15:10 04:56 WBC 12.1 H RBC 3.17 L Hgb 7.5 L Hct 24.8 L MCV 78 L MCH 23.7 L MCHC 30.2 L RDW Std Deviation 51.9 H Plt Count 367 D Neut % (Auto) 86 H Lymph % (Auto) 6 L [place] % (Auto) 7 Eos % (Auto) 0 Baso % (Auto) 0 Neut # (Auto) 10.4 H Lymph # (Auto) 0.8 L [place] # (Auto) 0.9 H Eos # (Auto) 0.0 Baso # (Auto) 0.0 Immature Gran # (Auto) 0.10 H Absolute Nucleated RBC 0.00 Immature Gran % 1 H Nucleated RBC % 0 PT 12.4 H INR 1.1 APTT 30.8 D 35.8 Sodium 137 Potassium 4.2 Chloride 100 Carbon Dioxide 22.9 Anion Gap 14 BUN 73 H Creatinine 3.1 H Estim Creat Clear Calc 20.6 L eGFR 21 L BUN/Creatinine Ratio 24 H Glucose 166 H D Calculated Osmolality 299 H Calcium 8.5 Corrected Calcium 9.3 Magnesium 2.1 Total Bilirubin 0.4 AST 19 ALT < 7 L Alkaline Phosphatase 78 Total Protein 6.4 Albumin 3.0 L Globulin 3.4 Albumin/Globulin Ratio 0.9 L Assessment & Plan A&P Narrative 63-year-old male with past medical history of CAD s/p stents, HFrEF (10-15%) hypertension, IDDM, hyperlipidemia, left BKA, and 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 1. Acute decompensated systolic heart failure exacerbation (10-15% EF) 2. Sinus tachycardia with NSVT 3. Dilated Cardiomyopathy 4. CAD s/p stents -Patient is currently having multiple runs of NSVT, PVC's likely in the setting of severe heart failure as well as ischemia from prior ID -Patient will most likely benefit from ICD if he continues to develop NSVT if EF does not improve after atleast 3 months of GDMT. -Echo on 05/28/2024 had the following findings Mildly dilated LV size. Severe systolic dysfunction. Estimated EF 10-15% Grade III DD with Akinetic apex along with severe global hypokinesis. Normal RV size. Moderate RV systolic dysfunction. Estimated RVSP 50mmHg. Atleast moderate PAH Moderate MR. Mild to moderate TR, Mild AI and PI. Mild biatrial dilation with IVC mildly dilated. Overall picture of dilated cardiomyopathy ''' Cardiac catheterization completed in March 2022 showed severe double vessel coronary artery disease involving the LAD and LCX. There is severe 90%mid LAD disease with tandem lesions and extending all the way into the distal LAD, severe 90% disease in the proximal and mid portion of the medium-sized OM1, severe diffuse disease noted of his small OM2, there is moderate 50% disease of the distal left main, which is moderately calcified involving the ostial LAD with 60% stenosis and ostial LCX with 70% stenosis. RCA is a large caliber artery providing good supply with mild diffuse disease. 2. Given the extensive nature of the disease and poor targets for bypass, we will plan to treat the patient aggressively with medications and then followup closely prior to any intervention as his symptoms are only shortness of breath. Plan: -Continue Amiodarone PO 200mg BID. -Patient's Blood pressure has been low and kidney function has slightly worsened with Cr 2.7 and BUN 69. -Will do diuretic holiday and will start Bumex 2mg PO daily on 05/04/2024. -Continue metoprolol XL and titrate as BP allows. -Continue high intensity statin and aspirin -Continue heparin drip for a total of 48 hours and can stop heparin drip 6 hours prior to any surgery. -Keep potassium and magnesium above 4 and 2 to avoid any arrhythmias 06/02/2024 Reviewed clinical research monitor and patient was SR with occasional PVCs Patient with successful right BKA without any major complications and will have wound check tomorrow and plans to discharge to a rehab or home. Kidney function continues to worsen with a creatinine of 2.8 and BUN of 73. Recommend to continue to hold Bumex for now and can restart at the time of discharge with Bumex 2 mg once daily as outpatient Patient does not appear to be fluid overloaded right now. Patient continues on amiodarone 200 mg twice daily Recommend to continue metoprolol XL and titrate if blood pressure allows Completed heparin drip. Patient is not a candidate for any invasive cardiac intervention at this time given multiple comorbidities, but he can be treated medically with goal-directed medical therapy. Potassium 4.3 and magnesium 2 today recommend to keep potassium magnesium above 4 and to respectively to avoid any further arrhythmias. 4. Essential hypertension 5. NSTEMI type II -Patient's blood pressure is on the low end likely in the setting of severe heart failure. -Troponins peaked at 0.095 and downtrended Plan: -Recommend no further troponins -Consider midodrine or pressor support if patient cannot sustain a MAP 65<. 6. Sepsis 2/2 osteomyelitis 7. osteomyelitis R foot 8. IDDM -Patient is high risk for surgery given multiple comorbidities including heart failure with ejection fraction of 10-15%. -Continue current management as per primary care team 9. JADIEL on CKD stage 3b 10. Hyperlipidemia -Continue current management as per primary care team Management of rest of the medical conditions as per primary team and other consultants. Thank you for the consult and allowing me to participate in the care of the patient. Cardiology will continue to follow. Chaz Fajardo M.D. Interventional Cardiology Time Spent With Patient Time: Total time spent is greater than 50% in coordination of care (as documented) at patient's floor/unit and/or counseling patient:
[2024-06-02] MEDS: INSULIN LISPRO (AdmeLOG) 1 UNIT/0.01 ML UNIT SC (22:14)
[2024-06-02] MEDS: INSULIN GLARGINE (Lantus) 5 UNIT/0.05 ML (PER 5 UNITS) 15 UNIT SC (22:15)
[2024-06-02] MEDS: ATORVASTATIN CALCIUM 20 MG TABLET 80 MG PO (22:15)
[2024-06-03] VITALS (10 sets, daily range): BP systolic 99–112; BP diastolic 63–76; PULSE 66–97; RESP 12–23; TEMP 36–36.4; O2SAT 96–100; BMI 21.1
--- NOTE | 2024-06-03 02:58 | PC.NURSE ---
Addendum entered by Bony Tucker RN 06/03/24 03:12: Dr. Castro also made aware, pt has been having frequent PVCs. No new orders received at this time. Original Note: Pt stated he doesn't feel good, he feels anxious and he can't breath. Respirations are even and unlabored. Pt currently on room air, oxygen saturation 96%. HR in the 70s. Called hospitalist, Dr. Castro made aware. No new order received at this time.
[2024-06-03] MEDS: hydrOXYzine HCL 25 MG TABLET PO (03:13)
[2024-06-03 05:57] LABS: Basophils % (Auto) 0 % (0-2.5); Eosinophils % (Auto) 0 % (0-10); Hematocrit 29.9 % (41.0-53.0); Immature Granulocytes % (Auto) 1 % (0-0); Immature Granulocytes Auto 0.11 Thou/mm3 (0.00-0.00); Lymphocytes # (Auto) 0.8 Thou/mm3 (1.0-4.8); Lymphocytes % (Auto) 7 % (10-50); Mean Corpuscular HGB Conc 29.8 g/dl (31.0-37.0); Mean Corpuscular Hemoglobin 23.4 pg (25.0-35.0); Mean Corpuscular Volume 79 fL (80-100); Monocytes # (Auto) 0.7 Thou/mm3 (0.0-0.8); Monocytes % (Auto) 6 % (0-12); Neutrophils # (Auto) 9.5 Thou/mm3 (1.8-7.7); Neutrophils % (Auto) 85 % (37-80); Nucleated Red Blood Cell # 0.03 Thou/mm3 (0.00-0.00); Nucleated Red Blood Cell % 0 /100 WBC (0); Platelet Count 361 Thou/mm3 (140-440); RDW Standard Deviation 52.8 fL (35.1-43.9); White Blood Count 11.2 Thou/mm3 (3.8-10.6)
[2024-06-03 06:06] LABS: Hemoglobin 8.9 g/dL (13.5-16.0)
[2024-06-03 06:25] LABS: Albumin, Serum 3.3 gm/dL (3.4-4.8); Anion Gap 11 (7-16); BUN/Creatinine Ratio 24 Ratio (12-20); Blood Urea Nitrogen 68 mg/dL (9-23); Calcium 8.5 mg/dL (8.3-10.6); Calcium (Corrected) 9.1 mg/dL (8.5-10.1); Carbon Dioxide 26.3 mMol/L (20.0-31.0); Chloride 100 mMol/L (98-107); Creatinine (Component) 2.8 mg/dL (0.6-1.3); Estimated Creatinine Clearance 22.7 mL/min (>60); Glucose 96 mg/dL (74-106); Magnesium 2.1 mg/dL (1.6-2.6); Osmolality,Calculated 293 (275-295); Phosphorous 5.2 mg/dL (2.4-5.1); Sodium 137 mMol/L (136-145); eGFR 24 See Note
--- NOTE | 2024-06-03 07:24 | PD.IMPROG ---
Documentation for date of: 06/03/24 Subjective Subjective Interval history: Patient was seen at bedside this morning. No overnight events. Reviewed radiation monitor and patient was SR with occasional PVCs Patient with successful right BKA without any major complications and will have wound check tomorrow and plans to discharge to a rehab or home. Kidney function continues to worsen with a creatinine of 2.7 and BUN of 68. Recommend to continue to hold Bumex for now and can restart at the time of discharge with Bumex 2 mg once daily as outpatient. Patient is having some shortness of breath and some cough along with some nausea. Recommended repeat chest x-ray this afternoon along with NT proBNP to compare to the previous levels. If patient is hemodynamically stable then we will give him some IV Bumex but it is on hold because of nephrology recommendations given his JADIEL and chronic kidney disease. Otherwise patient is doing well since the surgery. Patient continues on amiodarone 200 mg twice daily Recommend to continue metoprolol XL and titrate if blood pressure allows Completed heparin drip. Patient is not a candidate for any invasive cardiac intervention at this time given multiple comorbidities, but he can be treated medically with goal-directed medical therapy. Potassium 4.3 and magnesium 2 today recommend to keep potassium magnesium above 4 and to respectively to avoid any further arrhythmias. Echo on 05/28/2024 had the following findings Mildly dilated LV size. Severe systolic dysfunction. Estimated EF 10-15% Grade III DD with Akinetic apex along with severe global hypokinesis. Normal RV size. Moderate RV systolic dysfunction. Estimated RVSP 50mmHg. Atleast moderate PAH Moderate MR. Mild to moderate TR, Mild AI and PI. Mild biatrial dilation with IVC mildly dilated. Overall picture of dilated cardiomyopathy Cardiac catheterization completed in March 2022 showed severe double vessel coronary artery disease involving the LAD and LCX. There is severe 90%mid LAD disease with tandem lesions and extending all the way into the distal LAD, severe 90% disease in the proximal and mid portion of the medium-sized OM1, severe diffuse disease noted of his small OM2, there is moderate 50% disease of the distal left main, which is moderately calcified involving the ostial LAD with 60% stenosis and ostial LCX with 70% stenosis. RCA is a large caliber artery providing good supply with mild diffuse disease. 2. Given the extensive nature of the disease and poor targets for bypass, we will plan to treat the patient aggressively with medications and then followup closely prior to any intervention as his symptoms are only shortness of breath. Exam Vital Signs Temp Pulse Resp BP Pulse Ox O2 Del Method O2 Flow Rate 97.1 F 68 12 101/68 99 Room Air 2 06/03/24 04:00 06/03/24 04:00 06/03/24 04:00 06/03/24 04:00 06/03/24 04:00 06/03/24 04:00 06/01/24 22:34 Narrative Exam General: A/O x3, ill-appearing, thin. Eyes: PERRL, EOMI. Anicteric, vision grossly intact. Ears: No ear pain, no ear discharge, Hearing grossly intact. Nose: No nasal discharge. Mouth/Throat: Dry mucous membranes, no redness, no lesions. Neck: Neck supple, non-tender, no cervical lymphadenopathy. Lungs: Clear JOHN to auscultation and percussion, No accessory muscle use. Cardio: Normal S1/S2, regular rhythm, no murmurs, no JVD Abdomen: Firm without distension, non-tender, peristalsis present, no guarding or rebound. Extremities: R upper 3-5 digit amputation, JOHN BKA, R BKA covered by clean dressing, no peripheral edema , non-tender. Skin: No rashes, no lesions, warm to touch. Neuro: No focal neurological deficits. Motor and sensory intact. Psych: Cooperative, appropriate mood and effect. Objective Labs 06/03/24 05:21 06/03/24 05:21 Labs: Laboratory Results - last 24 hr 06/03/24 05:21 WBC 11.2 H RBC 3.80 L Hgb 8.9 L Hct 29.9 L MCV 79 L MCH 23.4 L MCHC 29.8 L RDW Std Deviation 52.8 H Plt Count 361 Neut % (Auto) 85 H Lymph % (Auto) 7 L [place] % (Auto) 6 Eos % (Auto) 0 Baso % (Auto) 0 Neut # (Auto) 9.5 H Lymph # (Auto) 0.8 L [place] # (Auto) 0.7 Eos # (Auto) 0.0 Baso # (Auto) 0.0 Immature Gran # (Auto) 0.11 H Absolute Nucleated RBC 0.03 H Immature Gran % 1 H Nucleated RBC % 0 Sodium 137 Potassium 4.0 Chloride 100 Carbon Dioxide 26.3 Anion Gap 11 BUN 68 H Creatinine 2.8 H Estim Creat Clear Calc 22.7 L eGFR 24 L BUN/Creatinine Ratio 24 H Glucose 96 D Calculated Osmolality 293 Calcium 8.5 Corrected Calcium 9.1 Phosphorus 5.2 H Magnesium 2.1 Albumin 3.3 L Assessment & Plan A&P Narrative 63-year-old male with past medical history of CAD s/p stents, HFrEF (10-15%) hypertension, IDDM, hyperlipidemia, left BKA, and 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 1. Acute decompensated systolic heart failure exacerbation (10-15% EF) 2. Sinus tachycardia with NSVT 3. Dilated Cardiomyopathy 4. CAD s/p stents -Patient is currently having multiple runs of NSVT, PVC's likely in the setting of severe heart failure as well as ischemia from prior [place] -Patient will most likely benefit from ICD if he continues to develop NSVT if EF does not improve after atleast 3 months of GDMT. -Echo on 05/28/2024 had the following findings Mildly dilated LV size. Severe systolic dysfunction. Estimated EF 10-15% Grade III DD with Akinetic apex along with severe global hypokinesis. Normal RV size. Moderate RV systolic dysfunction. Estimated RVSP 50mmHg. Atleast moderate PAH Moderate MR. Mild to moderate TR, Mild AI and PI. Mild biatrial dilation with IVC mildly dilated. Overall picture of dilated cardiomyopathy ''' Cardiac catheterization completed in March 2022 showed severe double vessel coronary artery disease involving the LAD and LCX. There is severe 90%mid LAD disease with tandem lesions and extending all the way into the distal LAD, severe 90% disease in the proximal and mid portion of the medium-sized OM1, severe diffuse disease noted of his small OM2, there is moderate 50% disease of the distal left main, which is moderately calcified involving the ostial LAD with 60% stenosis and ostial LCX with 70% stenosis. RCA is a large caliber artery providing good supply with mild diffuse disease. 2. Given the extensive nature of the disease and poor targets for bypass, we will plan to treat the patient aggressively with medications and then followup closely prior to any intervention as his symptoms are only shortness of breath. Plan: -Continue Amiodarone PO 200mg BID. -Patient's Blood pressure has been low and kidney function has slightly worsened with Cr 2.7 and BUN 69. -Will do diuretic holiday and will start Bumex 2mg PO daily on 05/04/2024. -Continue metoprolol XL and titrate as BP allows. -Continue high intensity statin and aspirin -Continue heparin drip for a total of 48 hours and can stop heparin drip 6 hours prior to any surgery. -Keep potassium and magnesium above 4 and 2 to avoid any arrhythmias 06/03/2024 Reviewed radiation monitor and patient was SR with occasional PVCs Patient with successful right BKA without any major complications and will have wound check tomorrow and plans to discharge to a rehab or home. Kidney function continues to worsen with a creatinine of 2.7 and BUN of 68. Recommend to continue to hold Bumex for now and can restart at the time of discharge with Bumex 2 mg once daily as outpatient. Patient is having some shortness of breath and some cough along with some nausea. Recommended repeat chest x-ray this afternoon along with NT proBNP to compare to the previous levels. If patient is hemodynamically stable then we will give him some IV Bumex but it is on hold because of nephrology recommendations given his JADIEL and chronic kidney disease. Otherwise patient is doing well since the surgery. Patient continues on amiodarone 200 mg twice daily Recommend to continue metoprolol XL and titrate if blood pressure allows Completed heparin drip. Patient is not a candidate for any invasive cardiac intervention at this time given multiple comorbidities, but he can be treated medically with goal-directed medical therapy. Potassium 4.3 and magnesium 2 today recommend to keep potassium magnesium above 4 and to respectively to avoid any further arrhythmias. 4. Essential hypertension 5. NSTEMI type II -Patient's blood pressure is on the low end likely in the setting of severe heart failure. -Troponins peaked at 0.095 and downtrended Plan: -Recommend no further troponins -Consider midodrine or pressor support if patient cannot sustain a MAP 65<. 6. Sepsis 2/2 osteomyelitis 7. osteomyelitis R foot 8. IDDM -Patient is high risk for surgery given multiple comorbidities including heart failure with ejection fraction of 10-15%. -Continue current management as per primary care team 9. JADIEL on CKD stage 3b 10. Hyperlipidemia -Continue current management as per primary care team Management of rest of the medical conditions as per primary team and other consultants. Thank you for the consult and allowing me to participate in the care of the patient. Cardiology will continue to follow. Chaz Fajardo M.D. Interventional Cardiology Time Spent With Patient Time: Total time spent is greater than 50% in coordination of care (as documented) at patient's floor/unit and/or counseling patient:
--- NOTE | 2024-06-03 07:58 | PD.NEPHPROG ---
Documentation for date of: 06/03/24 Subjective Subjective Interval history: Reason for consult: JADIEL on CKD History of present illness: The patient is a 63-year-old male with a previous medical history of CAD status post PCI, hypertension, hyperlipidemia, CKD stage IIIb, insulin-dependent type 2 diabetes, HFrEF, osteomyelitis, status post left BKA, right hand third/5 finger amputation who was admitted to the hospital on 05/28 due to shortness of breath. Hospital course: He was initially admitted due to CHF exacerbation and underlying infection pneumonia versus osteomyelitis. Cardiology was consulted, echo showed ejection fraction of 10% and also had a rapid response due to tachycardia, was started on amiodarone due to A-fib with RVR, beta-blockers and diuretics. Surgery was consulted due to right foot ulcer, x-ray of the right foot showed osteomyelitis and he underwent right-sided BKA. Nephrology was consulted for JADIEL on CKD. 06/01/2024: Patient was seen and examined by the bedside with family members present. Patient verbally agreed to share his medical condition updates with his family present. He denies shortness of breath, chest pain, headache, dysuria. He reports that his pain levels is 8 out of 10, declines additional pain meds. Patient condition was discussed with him, he was explained that his kidney function has worsened and he may require dialysis in the future. Patient stated that he does not want dialysis. Labs showed hemoglobin 7.4, sodium 135, potassium 4.3, BUN 69, creatinine 2.7, EGFR 25. Will continue to monitor patient closely for now. Bumex on hold till 06/03 for now. 06/02/2024 patient currently seen in telemetry. Resting comfortably. Noted family did not want any dialysis. Blood pressure 100/68, heart rate 72. WBC 12.1, hemoglobin 7.5, platelets 367. Sodium 137, potassium 4.2, BUN 73, creatinine 3.1, calcium 9.8, magnesium 2.1, LFTs normal 06/03/2024 patient currently seen in telemetry. Resting comfortably. at bedside. WBC 11.2, hemoglobin 8.9, platelets 361. Sodium 137, potassium 4, BUN 68, creatinine 2.8, GFR 24, phosphorus 5.2. Bumex on hold for the last 3 days. Anxious to go home. Still having some pain in the right stump Review of Systems Review of Systems Narrative Review of Systems: General: Denies weight loss, fever and chills. HEENT: Denies changes in vision and hearing. Resp: Denies SOB, cough and wheezing. CVS: Denies palpitations and CP. GI: Denies abdominal pain, nausea, vomiting and diarrhea. : Denies dysuria and urinary frequency. MSK: Denies myalgia and joint pain. Denies rash and pruritus. Reports pain in the right BKA stump. Neuro: Denies headache and syncope. Exam Vital Signs Temp Pulse Resp BP Pulse Ox O2 Del Method O2 Flow Rate 36.2 C 68 12 101/68 99 Room Air 2 06/03/24 04:00 06/03/24 04:00 06/03/24 04:00 06/03/24 04:00 06/03/24 04:00 06/03/24 04:00 06/01/24 22:34 Narrative Exam Physical Exam General: Awake and in no acute distress. Dry mucosa HEENT: Normocephalic, atraumatic, mucous membranes moist. Heart: Regular rate and rhythm, no murmurs. Lungs: Clear to auscultation with no wheezing or crackles. Abdomen: Soft, nondistended, nontender, positive bowel sounds. ?No guarding or rebound tenderness. Neurologic: Alert and oriented x3, no gross neurological deficit, and patient able to move all 4 extremities. Extremities: Left BKA. Right BKA site is covered in dressings. Fingers missing from the right hand Skin: No rash or ecchymoses. Objective Labs 06/04/24 05:00 06/04/24 05:18 Labs: Laboratory Results - last 24 hr 06/03/24 05:21 WBC 11.2 H RBC 3.80 L Hgb 8.9 L Hct 29.9 L MCV 79 L MCH 23.4 L MCHC 29.8 L RDW Std Deviation 52.8 H Plt Count 361 Neut % (Auto) 85 H Lymph % (Auto) 7 L [place] % (Auto) 6 Eos % (Auto) 0 Baso % (Auto) 0 Neut # (Auto) 9.5 H Lymph # (Auto) 0.8 L [place] # (Auto) 0.7 Eos # (Auto) 0.0 Baso # (Auto) 0.0 Immature Gran # (Auto) 0.11 H Absolute Nucleated RBC 0.03 H Immature Gran % 1 H Nucleated RBC % 0 Sodium 137 Potassium 4.0 Chloride 100 Carbon Dioxide 26.3 Anion Gap 11 BUN 68 H Creatinine 2.8 H Estim Creat Clear Calc 22.7 L eGFR 24 L BUN/Creatinine Ratio 24 H Glucose 96 D Calculated Osmolality 293 Calcium 8.5 Corrected Calcium 9.1 Phosphorus 5.2 H Magnesium 2.1 Albumin 3.3 L Assessment & Plan Additional Assessment & Plan Additional Plan: The patient is a 63-year-old male with a previous medical history of CAD status post PCI, hypertension, hyperlipidemia, CKD stage IIIb, insulin-dependent type 2 diabetes, HFrEF, osteomyelitis, status post left BKA, right hand third/5 finger amputation who was admitted to the hospital on 05/28 due to shortness of breath. #JDAIEL on CKD stage IIIb #Prerenal Azotemia #Hyponatremia Baseline Creatinine level is 1.8 at 05/04 Most likely in the setting of cardiorenal syndrome due to CHF excerbation. 06/03/2024: Creatinine slightly better at 2.8. Plan: ? Will continue to monitor patient, patient does not want dialysis at this point of time - Bumex on hold until 06/03 ? Avoid nephrotoxic agents ? Renally dose medication ? Monitor daily CMP #Sepsis 2/2 #Osteomyelitis of the right foot #Afib with RVR #new onset Afib #Troponinemia #Acute on chronic HFrEF exacerbation (EF 10-15%) #Acute hypoxic/hypercapnic respiratory failure #History of coronary artery disease s/p stent placement #Cardiorenal syndrome #New dysphagia #Poor p.o. intake #Insulin-dependent type 2 diabetes #Hyperglycemia #Possible superimposed aspiration pneumonia? #Leukocytosis #Microcytic anemia - management as per primary team Plan of care discussed with primary team. Encourage p.o. fluids. Diuretics held. Prognosis guarded.
[2024-06-03] MEDS: ASCORBIC ACID 250 MG TABLET 500 MG PO ×2 (08:44→20:27)
[2024-06-03] MEDS: DOXYCYCLINE 100 MG TABLET PO (08:44)
[2024-06-03] MEDS: AMIODARONE HCL 200 MG TABLET PO ×2 (08:44→20:30)
[2024-06-03] MEDS: METOPROLOL SUCCINATE XL 25 MG TABCR 12.5 MG PO (08:45)
[2024-06-03] MEDS: APIXABAN 2.5 MG TABLET 5 MG PO ×2 (08:45→20:28)
[2024-06-03] MEDS: ZINC SULFATE 220 MG CAPSULE PO (08:47)
[2024-06-03] MEDS: MIRTAZAPINE 15 MG TABLET 7.5 MG PO (08:47)
[2024-06-03] MEDS: POLYETHYLENE GLYCOL 17 GM PACKET PO (08:58)
[2024-06-03] MEDS: SENNA TABLET 1 TAB PO (09:04)
[2024-06-03] MEDS: ONDANSETRON INJ 2 MG/ML INJ 2 ML 4 MG IV (09:04)
--- NOTE | 2024-06-03 10:52 | PD.SURPROG ---
Documentation for date of: 06/03/24 Subjective Subjective Brief History: Patient has had the chronic osteomyelitis and peripheral vascular disease. He has noticed right foot infection recently with a dry gangrene. He also was found to have coronary artery disease. He developed SVT and was transferred to telemetry this afternoon. Patient has had a B-K amputation on the left side last year Narrative: The patient is not having much pain over the amputated leg Exam Vital Signs Temp Pulse Resp BP Pulse Ox O2 Del Method O2 Flow Rate 97.5 F 66 16 105/76 98 Room Air 2 06/03/24 08:00 06/03/24 08:45 06/03/24 08:00 06/03/24 08:45 06/03/24 08:00 06/03/24 08:00 06/01/24 22:34 His vital signs are stable Routine Extremities Exam Comments: The dressing was changed over the right leg at the level of B-K amputation. The flaps are very healthy and satisfactory. Assessment & Plan Assessment Additional comments: Impression: Patient has had a reasonable recovery following B-K amputation of the right leg Plan Plan: Patient could be discharged to [facility]. We can start him on physical therapy to get into the chair. He will require a stump protector before discharge to avoid injury to the stump Procedures Procedures Below-knee amputation of the right leg
[2024-06-03] MEDS: PANTOPRAZOLE INJ 40 MG VIAL IV (12:41)
--- NOTE | 2024-06-03 13:20 | ESPR_ITS ---
<Statement entered by Sandra Jaramillo MD - 06/03/24 17:22> Patient was seen and examined at bedside. His blood pressure stable at this time, his balance is -160 mL. Bumex was held by the cardiology team and they recommended to resume the Bumex in outpatient settings upon discharge. On evaluation patient does not seem to be overloaded, her serum creatinine has been improving now was 2.8 down from 3.1. Patient oral intake still does not meet his caloric requirement patient was started on mirtazapine from yesterday as the patient showed some flat affect and low energy most likely expressing some depressive symptoms. The symptoms could be an acute normal response to his deterioration of medical condition however we will keep monitoring and will refer the patient to a psychiatrist for follow-up. General surgery has seen the patient and they cleared the patient from their standpoint for discharge to alf facility with wound care. Patient was started on doxycycline by the general surgeon however the patient has had the amputation and the source of infection was removed, also the patient started to have some nausea and dysphagia most likely secondary to pill induced esophagitis from the doxycycline which also worsened his oral intake for that reason we DC'd the doxycycline. Patient still has not had a bowel movement for that reason he was given MiraLAX however patient continued to refuse some meds including insulin sliding scale and laxatives. Extensive discussion with the patient and family regarding how important take medications were conducted. - Patient's plan and care discussed with my attending, Dr. Tiffanie Jaramillo MD Internal Medicine PGY-2 Documentation for date of: 06/03/24 Subjective Subjective Interval history: Patient examined at bedside today. No acute overnight events. Says that he has been rejecting medicines because he has been taking too many medicines and some of them have been making him nauseous. Has not had a bowel movement yet. When asked about his mental status, patient did not respond,,but also said it felt that he is ready to talk about it. Complained of some nausea, but no other complaints. Exam Vital Signs Temp Pulse Resp BP Pulse Ox O2 Del Method O2 Flow Rate 96.8 F 72 20 104/65 99 Room Air 2 06/03/24 11:57 06/03/24 11:57 06/03/24 11:57 06/03/24 11:57 06/03/24 11:57 06/03/24 11:57 06/01/24 22:34 Narrative Exam General:AAOx3, NAD HEENT: Normocephalic, atraumatic, dry mucous membranes Heart: Regular rate and rhythm, no murmurs. Lungs: Clear to auscultation with no wheezing or crackles. Abdomen: Soft, nondistended, nontender, positive bowel sounds. ?No guarding or rebound tenderness. Neurologic: Alert and oriented x3, no gross neurological deficit, and patient able to move all 4 extremities. Extremities: Left BKA. Right BKA site is covered in dressings, numerous digits in R hand missing Skin: Skin turgor present in UE bilat Psych: Flat affect, signs of depressive state, not the most cooperative person with verbal responses Objective Labs 06/04/24 05:00 06/04/24 05:18 Labs: Laboratory Results - last 24 hr 06/03/24 05:21 WBC 11.2 H RBC 3.80 L Hgb 8.9 L Hct 29.9 L MCV 79 L MCH 23.4 L MCHC 29.8 L RDW Std Deviation 52.8 H Plt Count 361 Neut % (Auto) 85 H Lymph % (Auto) 7 L [place] % (Auto) 6 Eos % (Auto) 0 Baso % (Auto) 0 Neut # (Auto) 9.5 H Lymph # (Auto) 0.8 L [place] # (Auto) 0.7 Eos # (Auto) 0.0 Baso # (Auto) 0.0 Immature Gran # (Auto) 0.11 H Absolute Nucleated RBC 0.03 H Immature Gran % 1 H Nucleated RBC % 0 Sodium 137 Potassium 4.0 Chloride 100 Carbon Dioxide 26.3 Anion Gap 11 BUN 68 H Creatinine 2.8 H Estim Creat Clear Calc 22.7 L eGFR 24 L BUN/Creatinine Ratio 24 H Glucose 96 D Calculated Osmolality 293 Calcium 8.5 Corrected Calcium 9.1 Phosphorus 5.2 H Magnesium 2.1 Albumin 3.3 L Quality Measures Quality Measures VTE prophylaxis Advance care planning discussed with:: patient Assessment & Plan Assessment Current Active Medications: Generic Name Dose Route Start Last Admin Trade Name Freq PRN Reason Stop Dose Admin Acetaminophen 650 mg 05/28/24 04:05 06/01/24 04:34 Acetaminophen 325 Mg Tablet PO 06/27/24 04:04 650 mg Q6H PRN Administration Pain 1-3 and/or Fever >100.1 Hydrocodone Bitart/Acetaminophen 1 tab 06/01/24 10:38 Hydrocodone/Apap 5/325 Tablet PO 06/06/24 06:35 Q6HR PRN PAIN SCALE 4-6 (Moderate Amiodarone HCl 200 mg 05/29/24 21:00 06/03/24 08:44 Amiodarone Hcl 200 Mg Tablet PO 06/28/24 20:59 200 mg BID KENNY Administration Apixaban 5 mg 06/01/24 21:00 06/03/24 08:45 Apixaban 2.5 Mg Tablet PO 07/01/24 20:59 5 mg BID KENNY Administration Ascorbic Acid 500 mg 06/01/24 09:00 06/03/24 08:44 Ascorbic Acid 250 Mg Tablet PO 07/01/24 08:59 500 mg BID KENNY Administration Atorvastatin Calcium 80 mg 05/29/24 04:50 06/02/24 22:15 Atorvastatin Calcium 20 Mg Tablet PO 06/28/24 04:49 80 mg HS KENNY Administration Bumetanide 2 mg 06/03/24 09:00 06/03/24 10:40 Bumetanide 0.5 Mg Tablet PO 07/03/24 08:59 Not Given QDAY KENNY Dextrose 25 ml 05/28/24 04:12 Dextrose 50%-Water Inj 50 Ml Syringe IV 06/27/24 04:11 Q15MIN PRN BG 50-70 responsive npo pt Dextrose 50 ml 05/28/24 04:12 Dextrose 50%-Water Inj 50 Ml Syringe IV 06/27/24 04:11 Q15MIN PRN BG <50 OR BG <70 & pt unresponsive Glucagon 1 mg 05/28/24 04:12 Glucagon Inj 1 Mg Vial IM Q15MIN PRN BG <70, and no IV access Hydromorphone HCl 0.25 mg 06/01/24 10:35 06/02/24 22:12 Hydromorphone Inj 2 Mg/Ml Vial IVP 06/06/24 10:34 0.25 mg Q4HR PRN Administration PAIN SCALE 7-10 (Severe Insulin Glargine 15 unit 05/28/24 09:00 06/03/24 09:03 Insulin Glargine (Lantus) 5 Unit/0.05 Ml (Per 5 Units) SC 06/27/24 08:59 Not Given BID KENNY Insulin Human Lispro 0 unit 05/28/24 17:00 06/03/24 11:46 Insulin Lispro (Admelog) 1 Unit/0.01 Ml Unit SC 06/27/24 16:59 Not Given ACHS [facility] Protocol Metoprolol Succinate 12.5 mg 06/02/24 15:23 06/03/24 08:45 Metoprolol Succinate Xl 25 Mg Tabcr PO 06/29/24 08:59 12.5 mg QDAY KENNY Administration Mirtazapine 7.5 mg 06/03/24 09:00 06/03/24 08:47 Mirtazapine 15 Mg Tablet PO 07/03/24 08:59 7.5 mg QDAY KENNY Administration Ondansetron HCl 4 mg 06/02/24 11:36 06/03/24 09:04 Ondansetron Inj 2 Mg/Ml Inj 2 Ml IV 07/02/24 11:35 4 mg Q6HR PRN Administration NAUSEA OR VOMITING Protocol Pantoprazole Sodium 40 mg 06/03/24 12:45 06/03/24 12:41 Pantoprazole Inj 40 Mg Vial IV 07/03/24 12:44 40 mg QDAY KENNY Administration Sennosides 1 tab 06/03/24 08:15 06/03/24 09:04 Senna Tablet PO 07/03/24 08:14 1 tab QDAY PRN Administration CONSTIPATION Protocol Zinc Sulfate 220 mg 06/01/24 09:00 06/03/24 08:47 Zinc Sulfate 220 Mg Capsule PO 07/01/24 08:59 220 mg QDAY KENNY Administration Plan 63-year-old male with past medical history of CAD, status post PCI with LAD stents, essential hypertension, hyperlipidemia, CKD stage IIIb, insulin- dependent type 2 diabetes (last A1c 9.0), HFrEF (EF 30 to 35%), osteomyelitis with past surgeries and amputations (left BKA, right hand 3rd-5th finger) secondary to diabetic foot ulcer presenting with shortness of breath requiring starting home oxygen will be admitted for Sepsis 2/2 osteomyelitis, CHF exacerbation and workup of new dysphagia-like symptoms. #Sepsis 2/2 #Osteomyelitis of the right foot WBC 20.7 HR 150s Elevated creatinine 2.5, lactic 4.2, CRP 17.5 ESR 103 XR shows osteomyelitis amputated distal first and second metatarsals, air in the soft tissue Manager Community Dr. Henson Per family, patient has been on several oral antibiotics in the past month but still has some oozing and purulence in the area Lactic 4.2->3.9-> 3.1 Received 30cc/kg bolus dose in the ED for sepsis. Held IVF afterwards due to concern for fluid overload in setting of acute on chronic HFrEF exacerbation Wound culture showed MRSA Source of infection at this time has been removed to BKA General Surgeon clears patient for discharge, will need protective stump upon discharge Awaiting bowel movement for patient to be discharged for SNF Plan: General surgery on consult, apprec recs Discontinued doxycycline Wound care Vitamin C and Zinc for wound healing #Afib with RVR #new onset Afib #Troponinemia Patient denies hx of Afib; troponin elevated at 0.095->downtrending Rapid response called @ 1140 05/28 for Afib with RVR Plan: Cardiology on culture appreciate recs Continue amiodarone 200mg BID Metoprolol 12.5mg XL QD as BP permits K>4; Mg >2 #Acute on chronic HFrEF exacerbation (EF 10-15%) #Acute hypoxic/hypercapnic respiratory failure #History of coronary artery disease s/p stent placement #Cardiorenal syndrome Patient has extensive past medical history of cardiac disease; heart failure along with CAD and follows Dr. Velazquez, cardiology, outpatient Apparently last visit was about a month ago and apparently his heart failure is about the same has not improved or worsened Echo from 01/2024 shows: Mildly dilated LV. Normal wall thickness. Estimated EF 30-35 %. Global LV systolic function is severely decreased. RV not well visualized. [id number] MR. Echo 06/03: EF 10-15% Grade III DD akinetic apex with severe global hypokinesis, moderate PAH, MR, dilated cardiomyopathy Cardiac catheterization shows disease in the LAD, up to 90%, for bypass patient, we will medically manage medically at this time Plan: Cardiology consulted; appreciate recommendations Strict I's and O's Daily weight Oxygen supplementation as needed Fluid restriction 1500 mL daily Holding Bumex at this time Continuing metoprolol 12.5 #JADIEL on CKD stage IIIb #Prerenal Azotemia #Hyponatremia improving Baseline 1.8(05/04) Given 2 L of IV fluids in the ED; then 40mg Lasix by admitting team Prerenal azotemia likely secondary to poor p.o. intake/dehydration versus CHF exacerbation and vascular congestion Will monitor renal function; needs diuresis for HFrEF and antibiotics for osteomyelitis but concern for damage to kidneys Creatinine 2.9 today Plan: Renally dose medication Avoid nephrotoxic agents Monitor sodium correction, Fluid restriction as above Holding on diuresis at this time #Dysphagia #Poor p.o. intake #Nausea #Failure to thrive #Constipation Patient has been having poor p.o. intake for the past several days Per , patient has dysphagia to both solid and liquid which is a new symptom Will evaluate patient, expresses flat affect, concern for failure to thrive at this time Brought up hospice with patient, patient will take time to think about this Plan: Continue with Remeron 7.5 mg May consider antidepressant later Antiemetics as needed Protonix #Insulin-dependent type 2 diabetes #Hyperglycemia A1C 10.2; Lantus 15u BID at home BG 600+ in ED, BHB 1.7 Plan: Lantus 15u BID Sliding scale insulin resistant every 6 hours #Possible superimposed aspiration pneumonia?, resolved #Leukocytosis, improving Patient presenting with acute shortness of breath requiring home oxygen use Patient has been on oral antibiotics for the past several weeks Patient currently in the ED on 2 to 3 L nasal cannula which is not usual for him Chest x-ray does show bilateral pneumonia versus vascular congestion; in setting of dysphagia possible aspiration Blood cultures no growth after 5 days Plan: As above #Microcytic anemia Patient has had anemia since being admitted sometime in January Hemoglobin has consistently been below 10 since that time with no improvement Iron panel and ferritin from the past anemia of chronic disease versus less likely iron deficiency anemia Plan: Follow-up outpatient and refer to serger #Health Maintenance Disposition: Telemetry DVT prophylaxis: Eliquis GI prophylaxis: Protonix Diet: Dysphagia 2 carbohydrate consistent CODE STATUS: Full Patient seen and care discussed with my senior resident, Dr. Jaramillo, and my attending physician, Dr. Tiffanie Bassett, PGY-1 Attending Provider Attestation/Addendum I have examined the patient, reviewed labs and imaging findings, discussed the case with the resident(s), and reviewed entered orders. I agree with the plan of care as outlined in this note, with these additional summaries/recommendations: Patient is a 63-year-old male with a extensive past medical history including uncontrolled diabetes mellitus type 2, HFrEF (EF 30%), CAD with LAD stents, primary hypertension, hyperlipidemia, CKD stage IIIb, and history of osteomyelitis with multiple amputations in the past presented to [facility] emergency department on 05/28/2024 with chief complaint of shortness of breath. Patient seen at bedside. No acute overnight events. Patient is POD #3 s/p right leg BKA today for severe osteomyelitis and gangrene of the right foot. Significant improvement in leukocytosis and we will discontinue oral doxycycline today and repeat hematology panel tomorrow. Surgery has cleared patient from a surgical standpoint and stump protector being arranged. Patient will need to follow-up with general surgery outpatient in two weeks. Patient had zero oral intake yesterday and appears more withdrawn. Start appetite stimulant and obtain speech therapy evaluation and patient denies depression symptoms. Patient has also been refusing medications and discussed all treatment options including hospice and patient will think about his options. During hospitalization patient developed new onset atrial fibrillation with RVR. Now in sinus rhythm and continue amiodarone 200 mg p.o. twice daily. Previously on heparin gtt. for elevated [id number] score and transitioned to Eliquis 5mg po bid. Patient has severe underlying heart failure. Echocardiogram completed which revealed severe systolic dysfunction, EF 10 to 15%, akinetic apex with severe global hypokinesis. Continue preload reduction with fluid restriction and hold Bumex today for worsening JADIEL. Hold starting afterload reduction with EMERALD/ARB or Entresto given patient's renal function and soft blood pressure. Continue metoprolol succinate 12.5mg PO QD for neurohormonal blockade. We will continue to institute goal directed medical therapy as tolerated although have been unsuccessful to date given soft blood pressure. Patient was also found to have JADIEL on CKD stage IIIb. Etiology thought to be secondary to cardiorenal syndrome although now worsening with bumex. Consult nephrology, recommendations appreciated. Blood sugars continue to improve with basal and bolus insulin. Target blood sugar of 140-180 while hospitalized. Patient has severe PAD with multiple amputations; continue Atorvastatin. Repeat hematology and chemistry panel in AM. Prognosis guarded. Dr. Moreno
--- NOTE | 2024-06-03 14:02 | XR_ITS ---
Examination: AP chest single view Technique: AP portable upright chest single view Exam date and time: June 03, 2024 1419 hrs. Comparison May 27, 2024 Indications: Onset shortness of breath today. Findings: Moderate CHF Mild nodular cardiac contour Prominent vascular congestion with perihilar edema Consider superimposed diffuse bilateral pneumonia Impression: Moderate CHF Consider superimposed bilateral pneumonia
--- NOTE | 2024-06-03 16:17 | PC.PT ---
PT eval attempted at 15:55. Patient refused PT eval secondary to patient reported pain in the R residual limb. Patient also stated he wanted to eat at that moment instead of work with PT. PT educated the patient on the benefits of movement but he still declined. Will re-attempt PT eval at another time. RN notified.
[2024-06-03] MEDS: HYDROcodone/APAP 5/325 TABLET 1 TAB PO (16:24)
[2024-06-03] MEDS: ATORVASTATIN CALCIUM 20 MG TABLET 80 MG PO (20:27)
[2024-06-03] MEDS: HYDROmorphone INJ 2 MG/ML VIAL 0.25 MG IVP (20:31)
[2024-06-04] VITALS (11 sets, daily range): BP systolic 110–120; BP diastolic 71–84; PULSE 65–84; RESP 14–100; TEMP 35.9–36.6; O2SAT 91–100; BMI 21.1
[2024-06-04 05:58] LABS: Basophils % (Auto) 0 % (0-2.5); Eosinophils # (Auto) 0.1 Thou/mm3 (0.0-0.5); Eosinophils % (Auto) 1 % (0-10); Hematocrit 32.1 % (41.0-53.0); Hemoglobin 9.4 g/dL (13.5-16.0); Immature Granulocytes % (Auto) 1 % (0-0); Immature Granulocytes Auto 0.15 Thou/mm3 (0.00-0.00); Lymphocytes # (Auto) 0.8 Thou/mm3 (1.0-4.8); Lymphocytes % (Auto) 6 % (10-50); Mean Corpuscular HGB Conc 29.3 g/dl (31.0-37.0); Mean Corpuscular Hemoglobin 23.7 pg (25.0-35.0); Mean Corpuscular Volume 81 fL (80-100); Monocytes # (Auto) 0.8 Thou/mm3 (0.0-0.8); Monocytes % (Auto) 6 % (0-12); Neutrophils % (Auto) 87 % (37-80); Nucleated Red Blood Cell # 0.02 Thou/mm3 (0.00-0.00); Nucleated Red Blood Cell % 0 /100 WBC (0); Platelet Count 384 Thou/mm3 (140-440); RDW Standard Deviation 53.6 fL (35.1-43.9); Red Blood Count 3.97 Miln/mm3 (4.50-5.90); White Blood Count 13.9 Thou/mm3 (3.8-10.6)
[2024-06-04 06:53] LABS: B-Type Natriuretic Peptide > 3280 pg/mL (0-100)
[2024-06-04 06:55] LABS: Anion Gap 10 (7-16); BUN/Creatinine Ratio 24 Ratio (12-20); Blood Urea Nitrogen 52 mg/dL (9-23); Carbon Dioxide 26.9 mMol/L (20.0-31.0); Chloride 103 mMol/L (98-107); Creatinine (Component) 2.2 mg/dL (0.6-1.3); Potassium 3.8 mMol/L (3.4-5.1); Sodium 140 mMol/L (136-145)
[2024-06-04 06:56] LABS: Albumin, Serum 3.2 gm/dL (3.4-4.8); Calcium 8.4 mg/dL (8.3-10.6); Estimated Creatinine Clearance 28.9 mL/min (>60); Glucose 81 mg/dL (74-106); Magnesium 2.1 mg/dL (1.6-2.6); Osmolality,Calculated 292 (275-295); Phosphorous 3.4 mg/dL (2.4-5.1); eGFR 32 See Note
[2024-06-04] MEDS: METOPROLOL SUCCINATE XL 25 MG TABCR 12.5 MG PO (08:34)
[2024-06-04] MEDS: APIXABAN 2.5 MG TABLET 5 MG PO (08:34)
[2024-06-04] MEDS: AMIODARONE HCL 200 MG TABLET PO ×2 (08:36→22:13)
--- NOTE | 2024-06-04 08:37 | PC.SS ---
ADVERTISING PROJECT MANAGER received phone call from Michelle ([phone]) [facility]; stating that patient's primary insurance is Medicare. Patient will not require authorization for SNF placement.
--- NOTE | 2024-06-04 08:39 | ESPR_ITS ---
Documentation for date of: 06/04/24 Subjective Subjective Interval history: Reason for consult: JADIEL on CKD History of present illness: The patient is a 63-year-old male with a previous medical history of CAD status post PCI, hypertension, hyperlipidemia, CKD stage IIIb, insulin-dependent type 2 diabetes, HFrEF, osteomyelitis, status post left BKA, right hand third/5 finger amputation who was admitted to the hospital on 05/28 due to shortness of breath. Hospital course: He was initially admitted due to CHF exacerbation and underlying infection pneumonia versus osteomyelitis. Cardiology was consulted, echo showed ejection fraction of 10% and also had a rapid response due to tachycardia, was started on amiodarone due to A-fib with RVR, beta-blockers and diuretics. Surgery was consulted due to right foot ulcer, x-ray of the right foot showed osteomyelitis and he underwent right-sided BKA. Nephrology was consulted for JADIEL on CKD. 06/01/2024: Patient was seen and examined by the bedside with family members present. Patient verbally agreed to share his medical condition updates with his family present. He denies shortness of breath, chest pain, headache, dysuria. He reports that his pain levels is 8 out of 10, declines additional pain meds. Patient condition was discussed with him, he was explained that his kidney function has worsened and he may require dialysis in the future. Patient stated that he does not want dialysis. Labs showed hemoglobin 7.4, sodium 135, potassium 4.3, BUN 69, creatinine 2.7, EGFR 25. Will continue to monitor patient closely for now. Bumex on hold till 06/03 for now. 06/02/2024 patient currently seen in telemetry. Resting comfortably. Noted family did not want any dialysis. Blood pressure 100/68, heart rate 72. WBC 12.1, hemoglobin 7.5, platelets 367. Sodium 137, potassium 4.2, BUN 73, creatinine 3.1, calcium 9.8, magnesium 2.1, LFTs normal 06/03/2024 patient currently seen in telemetry. Resting comfortably. at bedside. WBC 11.2, hemoglobin 8.9, platelets 361. Sodium 137, potassium 4, BUN 68, creatinine 2.8, GFR 24, phosphorus 5.2. Bumex on hold for the last 3 days. Anxious to go home. Still having some pain in the right stump 06/04/2024 patient currently seen in telemetry. Resting comfortably. His is at bedside. Creatinine improved to 2.2. Resume Bumex. Clinically seems to have some fluid overload. Patient absolutely declines dialysis. Review of Systems Review of Systems Narrative Review of Systems: General: Denies weight loss, fever and chills. HEENT: Denies changes in vision and hearing. Resp: Denies SOB, cough and wheezing. CVS: Denies palpitations and CP. GI: Denies abdominal pain, nausea, vomiting and diarrhea. : Denies dysuria and urinary frequency. MSK: Denies myalgia and joint pain. Denies rash and pruritus. Reports pain in the right BKA stump. Neuro: Denies headache and syncope. Exam Vital Signs Temp Pulse Resp BP Pulse Ox O2 Del Method O2 Flow Rate 36.6 C 75 18 115/73 97 Room Air 2 06/04/24 04:00 06/04/24 04:00 06/04/24 04:00 06/04/24 04:00 06/04/24 04:00 06/04/24 04:00 06/01/24 22:34 Narrative Exam Physical Exam General: Awake and in no acute distress. Dry mucosa HEENT: Normocephalic, atraumatic, mucous membranes moist. Heart: Regular rate and rhythm, no murmurs. Lungs: Clear to auscultation with no wheezing or crackles. Abdomen: Soft, nondistended, nontender, positive bowel sounds. ?No guarding or rebound tenderness. Neurologic: Alert and oriented x3, no gross neurological deficit, and patient able to move all 4 extremities. Extremities: Left BKA. Right BKA site is covered in dressings. Fingers missing from the right hand Skin: No rash or ecchymoses. Objective Labs 06/05/24 05:09 06/05/24 05:09 Labs: Laboratory Results - last 24 hr 06/04/24 06/04/24 05:00 05:18 WBC 13.9 H RBC 3.97 L Hgb 9.4 L Hct 32.1 L MCV 81 MCH 23.7 L MCHC 29.3 L RDW Std Deviation 53.6 H Plt Count 384 Neut % (Auto) 87 H Lymph % (Auto) [address] [place] % (Auto) 6 Eos % (Auto) 1 Baso % (Auto) 0 Neut # (Auto) 12.0 H Lymph # (Auto) 0.[address] [place] # (Auto) 0.8 Eos # (Auto) 0.1 Baso # (Auto) 0.0 Immature Gran # (Auto) 0.15 H Absolute Nucleated RBC 0.02 H Immature Gran % 1 H Nucleated RBC % 0 Sodium 140 Potassium 3.8 Chloride 103 Carbon Dioxide 26.9 Anion Gap 10 BUN 52 H Creatinine 2.2 H D Estim Creat Clear Calc 28.9 L eGFR 32 L BUN/Creatinine Ratio 24 H Glucose 81 Calculated Osmolality 292 Calcium 8.4 Corrected Calcium 9.0 Phosphorus 3.4 Magnesium 2.1 B-Natriuretic Peptide > 3280 H* Albumin 3.2 L Assessment & Plan Additional Assessment & Plan Additional Plan: The patient is a 63-year-old male with a previous medical history of CAD status post PCI, hypertension, hyperlipidemia, CKD stage IIIb, insulin-dependent type 2 diabetes, HFrEF, osteomyelitis, status post left BKA, right hand third/5 finger amputation who was admitted to the hospital on 05/28 due to shortness of breath. #JADIEL on CKD stage IIIb #Prerenal Azotemia #Hyponatremia Baseline Creatinine level is 1.8 at 05/04 Most likely in the setting of cardiorenal syndrome due to CHF excerbation. 06/04/2024: Creatinine slightly better at 2.2 Plan: ? Will continue to monitor patient, patient does not want dialysis at this point of time -Resume Bumex ? Avoid nephrotoxic agents ? Renally dose medication ? Monitor daily CMP #Sepsis 2/ #Osteomyelitis of the right foot #Afib with RVR #new onset Afib #Troponinemia #Acute on chronic HFrEF exacerbation (EF 10-15%) #Acute hypoxic/hypercapnic respiratory failure #History of coronary artery disease s/p stent placement #Cardiorenal syndrome #New dysphagia #Poor p.o. intake #Insulin-dependent type 2 diabetes #Hyperglycemia #Possible superimposed aspiration pneumonia? #Leukocytosis #Microcytic anemia - management as per primary team Plan of care discussed with primary team. Encourage p.o. fluids. Diuretics resumed. Did discuss with patient and family regarding cardiorenal syndrome and worsening renal function with diuretics. Patient declines dialysis. Continue with present management. Prognosis guarded.
[2024-06-04] MEDS: PANTOPRAZOLE INJ 40 MG VIAL IV (09:50)
[2024-06-04] MEDS: DOXYCYCLINE 100 MG TABLET PO (10:40)
[2024-06-04] MEDS: ACETAMINOPHEN 325 MG TABLET 650 MG PO (10:51)
[2024-06-04] MEDS: HYDROmorphone INJ 2 MG/ML VIAL 0.25 MG IVP (11:46)
--- NOTE | 2024-06-04 13:19 | ESPR_ITS ---
<Statement entered by Sandra Jaramillo MD - 06/04/24 15:10> . Patient was seen and examined at bedside. Patient did not have any incidents overnight however the nurses reported that the patient refuses to cooperate and take his medications. Even though. His doxycycline however patient still insisting on not taking his medications. We offered for the patient hospice care if he does not want to pursue full treatment. He appears to be refusing this option at this time. This discussion was conducted while family were at bedside. Patient has not had any bowel movement since the of this month and the patient refuses to take his constipation medications. Vitally the patient stable heart rate is stable rate controlled, blood pressure also stable. Patient oral intake still poor and does not meet his caloric requirement. We asked the patient whether there is anything we can do to help him increase his oral intake by his refusing to communicate. And only answer yes or no questions most of the time. We noticed that his WBC increased to 13.9 for that reason we decided to resume his doxycycline for his postsurgical wound. Serum creatinine appears to be improving at the decreased from 2.8-2.2. Patient does not appear to be overloaded today. Pending patient increased oral intake for possible discharge patient was cleared from discharge from surgical standpoint, cardiology standpoint at his serum creatinine to baseline. - Patient's plan and care discussed with my attending, Dr Tiffanie Jaramillo MD Internal Medicine PGY-2 Documentation for date of: 06/04/24 Subjective Subjective Interval history: Patient examined at bedside today. No acute overnight events. Is requesting some pain medicines at this time. Has refused some of the medicines because it was making him nauseous. He is saying that he wants to talk to us about his medical management however he has not been talking much. He is present with family and would like to talk later with think about his decisions moving forward. He says he has a bowel movement however there was no documented bowel movement on his chart. He is refusing laxatives as well. Exam Vital Signs Temp Pulse Resp BP Pulse Ox O2 Del Method O2 Flow Rate 97.5 F 76 20 111/74 99 Room Air 2 06/04/24 12:00 06/04/24 12:00 06/04/24 12:06/04/24 12:00 06/04/24 12:00 06/04/24 12:00 06/04/24 08:00 Narrative Exam General:AAOx3, NAD HEENT: Normocephalic, atraumatic, dry mucous membranes Heart: Regular rate and rhythm, no murmurs. Lungs: Clear to auscultation with no wheezing or crackles. Abdomen: Soft, nondistended, nontender, positive bowel sounds. ?No guarding or rebound tenderness. Neurologic: Alert and oriented x3, no gross neurological deficit, and patient able to move all 4 extremities. Extremities: Left BKA. Right BKA site is covered in dressings, numerous digits in R hand missing Skin: Skin turgor present in UE bilat Psych: Flat affect, signs of depressive state, not the most cooperative person with verbal responses Objective Labs 06/04/24 05:00 06/04/24 05:18 Labs: Laboratory Results - last 24 hr 06/04/24 06/04/24 05:00 05:18 WBC 13.9 H RBC 3.97 L Hgb 9.4 L Hct 32.1 L MCV 81 MCH 23.7 L MCHC 29.3 L RDW Std Deviation 53.6 H Plt Count 384 Neut % (Auto) 87 H Lymph % (Auto) 6 L [place] % (Auto) 6 Eos % (Auto) 1 Baso % (Auto) 0 Neut # (Auto) 12.0 H Lymph # (Auto) 0.8 L [place] # (Auto) 0.8 Eos # (Auto) 0.1 Baso # (Auto) 0.0 Immature Gran # (Auto) 0.15 H Absolute Nucleated RBC 0.02 H Immature Gran % 1 H Nucleated RBC % 0 Sodium 140 Potassium 3.8 Chloride 103 Carbon Dioxide 26.9 Anion Gap 10 BUN 52 H Creatinine 2.2 H D Estim Creat Clear Calc 28.9 L eGFR 32 L BUN/Creatinine Ratio 24 H Glucose 81 Calculated Osmolality 292 Calcium 8.4 Corrected Calcium 9.0 Phosphorus 3.4 Magnesium 2.1 B-Natriuretic Peptide > 3280 H* Albumin 3.2 L Quality Measures Quality Measures VTE prophylaxis Advance care planning discussed with:: patient Assessment & Plan Assessment Current Active Medications: Generic Name Dose Route Start Last Admin Trade Name Freq PRN Reason Stop Dose Admin Acetaminophen 650 mg 05/28/24 04:05 06/04/24 10:51 Acetaminophen 325 Mg Tablet PO 06/27/24 04:04 650 mg Q6H PRN Administration Pain 1-3 and/or Fever >100.1 Hydrocodone Bitart/Acetaminophen 1 tab 06/01/24 10:38 06/03/24 16:24 Hydrocodone/Apap 5/325 Tablet PO 06/06/24 06:35 1 tab Q6HR PRN Administration PAIN SCALE 4-6 (Moderate Amiodarone HCl 200 mg 05/29/24 21:00 06/04/24 08:36 Amiodarone Hcl 200 Mg Tablet PO 06/28/24 20:59 200 mg BID KENNY Administration Apixaban 5 mg 06/01/24 21:00 06/04/24 08:34 Apixaban 2.5 Mg Tablet PO 07/01/24 20:59 5 mg BID KENNY Administration Ascorbic Acid 500 mg 06/01/24 09:00 06/04/24 08:59 Ascorbic Acid 250 Mg Tablet PO 07/01/24 08:59 Not Given BID KENNY Atorvastatin Calcium 80 mg 05/29/24 04:50 06/03/24 20:27 Atorvastatin Calcium 20 Mg Tablet PO 06/28/24 04:49 80 mg HS KENNY Administration Bumetanide 2 mg 06/03/24 09:00 06/03/24 10:40 Bumetanide 0.5 Mg Tablet PO 07/03/24 08:59 Not Given QDAY KENNY Dextrose 25 ml 05/28/24 04:12 Dextrose 50%-Water Inj 50 Ml Syringe IV 06/27/24 04:11 Q15MIN PRN BG 50-70 responsive npo pt Dextrose 50 ml 05/28/24 04:12 Dextrose 50%-Water Inj 50 Ml Syringe IV 06/27/24 04:11 Q15MIN PRN BG <50 OR BG <70 & pt unresponsive Doxycycline Hyclate 100 mg 06/04/24 09:45 06/04/24 10:40 Doxycycline 100 Mg Tablet PO 06/11/24 09:44 100 mg BID KENNY Administration Glucagon 1 mg 05/28/24 04:12 Glucagon Inj 1 Mg Vial IM Q15MIN PRN BG <70, and no IV access Hydromorphone HCl 0.25 mg 06/01/24 10:35 06/04/24 11:46 Hydromorphone Inj 2 Mg/Ml Vial IVP 06/06/24 10:34 0.25 mg Q4HR PRN Administration PAIN SCALE 7-10 (Severe Insulin Glargine 15 unit 05/28/24 09:00 06/04/24 08:59 Insulin Glargine (Lantus) 5 Unit/0.05 Ml (Per 5 Units) SC 06/27/24 08:59 Not Given BID KENNY Insulin Human Lispro 0 unit 05/28/24 17:00 06/04/24 11:30 Insulin Lispro (Admelog) 1 Unit/0.01 Ml Unit SC 06/27/24 16:59 Not Given ACHS KENNY Protocol Metoprolol Succinate 12.5 mg 06/02/24 15:23 06/04/24 08:34 Metoprolol Succinate Xl 25 Mg Tabcr PO 06/29/24 08:59 12.5 mg QDAY KENNY Administration Mirtazapine 7.5 mg 06/03/24 09:00 06/03/24 08:47 Mirtazapine 15 Mg Tablet PO 07/03/24 08:59 7.5 mg QDAY KENNY Administration Ondansetron HCl 4 mg 06/02/24 11:36 06/03/24 09:04 Ondansetron Inj 2 Mg/Ml Inj 2 Ml IV 07/02/24 11:35 4 mg Q6HR PRN Administration NAUSEA OR VOMITING Protocol Pantoprazole Sodium 40 mg 06/03/24 12:45 06/04/24 09:50 Pantoprazole Inj 40 Mg Vial IV 07/03/24 12:44 40 mg QDAY KENNY Administration Sennosides 1 tab 06/03/24 08:15 06/03/24 09:04 Senna Tablet PO 07/03/24 08:14 1 tab QDAY PRN Administration CONSTIPATION Protocol Zinc Sulfate 220 mg 06/01/24 09:00 06/04/24 09:00 Zinc Sulfate 220 Mg Capsule PO 07/01/24 08:59 Not Given QDAY KENNY Plan 63-year-old male with past medical history of CAD, status post PCI with LAD stents, essential hypertension, hyperlipidemia, CKD stage IIIb, insulin- dependent type 2 diabetes (last A1c 9.0), HFrEF (EF 30 to 35%), osteomyelitis with past surgeries and amputations (left BKA, right hand 3rd-5th finger) secondary to diabetic foot ulcer presenting with shortness of breath requiring starting home oxygen will be admitted for Sepsis 2/2 osteomyelitis, CHF exacerbation and workup of new dysphagia-like symptoms. #Sepsis 2/2 #Osteomyelitis of the right foot WBC 20.7 HR 150s Elevated creatinine 2.5, lactic 4.2, CRP 17.5 ESR 103 XR shows osteomyelitis amputated distal first and second metatarsals, air in the soft tissue Ventilated Rib Fitter Dr. Henson Per family, patient has been on several oral antibiotics in the past month but still has some oozing and purulence in the area Lactic 4.2->3.9-> 3.1 Received 30cc/kg bolus dose in the ED for sepsis. Held IVF afterwards due to concern for fluid overload in setting of acute on chronic HFrEF exacerbation Wound culture showed MRSA Source of infection at this time has been removed to A General Surgeon clears patient for discharge, will need protective stump upon discharge Awaiting bowel movement for patient to be discharged for SNF Patient had an elevation in his white count from 11 to 14, will restart doxycycline Plan: General surgery on consult, apprec recs Restarted doxycycline Wound care Vitamin C and Zinc for wound healing #Afib with RVR, stable #new onset Afib #Troponinemia, resolved Patient denies hx of Afib; troponin elevated at 0.095->downtrending Rapid response called @ 1140 05/28 for Afib with RVR Plan: Cardiology on culture appreciate recs Continue amiodarone 200mg BID Metoprolol 12.5mg XL QD as BP permits K>4; Mg >2 #Acute on chronic HFrEF exacerbation (EF 10-15%) #Acute hypoxic/hypercapnic respiratory failure #History of coronary artery disease s/p stent placement #Cardiorenal syndrome Patient has extensive past medical history of cardiac disease; heart failure along with CAD and follows Dr. Velazquez, cardiology, outpatient Apparently last visit was about a month ago and apparently his heart failure is about the same has not improved or worsened Echo from 01/2024 shows: Mildly dilated LV. Normal wall thickness. Estimated EF 30-35 %. Global LV systolic function is severely decreased. RV not well visualized. [id number] MR. Echo 06/03: EF 10-15% Grade III DD akinetic apex with severe global hypokinesis, moderate PAH, MR, dilated cardiomyopathy Cardiac catheterization shows disease in the LAD, up to 90%, for bypass patient, we will medically manage medically at this time Plan: Cardiology consulted; appreciate recommendations Strict I's and O's Daily weight Oxygen supplementation as needed Fluid restriction 1500 mL daily Holding Bumex at this time Continuing metoprolol 12.5 #JADIEL on CKD stage IIIb, improving #Prerenal Azotemia #Hyponatremia improving Baseline 1.8(05/04) Given 2 L of IV fluids in the ED; then 40mg Lasix by admitting team Prerenal azotemia likely secondary to poor p.o. intake/dehydration versus CHF exacerbation and vascular congestion Will monitor renal function; needs diuresis for HFrEF and antibiotics for osteomyelitis but concern for damage to kidneys Creatinine 2.2 today, improving Plan: Renally dose medication Avoid nephrotoxic agents Monitor sodium correction, Fluid restriction as above Holding on diuresis at this time #Dysphagia #Poor p.o. intake #Nausea #Failure to thrive #Constipation Patient is present with family today, hospice. The patient began, however patient will need more time to think about this we will revisit this later Plan: Continue with Remeron 7.5 mg May consider antidepressant later Antiemetics as needed Protonix #Insulin-dependent type 2 diabetes #Hyperglycemia A1C 10.2; Lantus 15u BID at home BG 600+ in ED, BHB 1.7 Plan: Lantus 15u BID Sliding scale insulin resistant every 6 hours #Possible superimposed aspiration pneumonia?, resolved #Leukocytosis, improving Patient presenting with acute shortness of breath requiring home oxygen use Patient has been on oral antibiotics for the past several weeks Patient currently in the ED on 2 to 3 L nasal cannula which is not usual for him Chest x-ray does show bilateral pneumonia versus vascular congestion; in setting of dysphagia possible aspiration Blood cultures no growth after 5 days Plan: As above #Microcytic anemia Patient has had anemia since being admitted sometime in January Hemoglobin has consistently been below 10 since that time with no improvement Iron panel and ferritin from the past anemia of chronic disease versus less likely iron deficiency anemia Plan: Follow-up outpatient and refer to plasticator #Health Maintenance Disposition: Telemetry DVT prophylaxis: Eliquis GI prophylaxis: Protonix Diet: Dysphagia 2 carbohydrate consistent CODE STATUS: Full Patient seen and care discussed with my senior resident, Dr. Jaramillo, and my attending physician, Dr. Tiffanie Bassett, PGY-1 Attending Provider Attestation/Addendum I have examined the patient, reviewed labs and imaging findings, discussed the case with the resident(s), and reviewed entered orders. I agree with the plan of care as outlined in this note, with these additional summaries/recommendations: Patient is a 63-year-old male with a extensive past medical history including uncontrolled diabetes mellitus type 2, HFrEF (EF 30%), CAD with LAD stents, primary hypertension, hyperlipidemia, CKD stage IIIb, and history of osteomyelitis with multiple amputations in the past presented to [facility] emergency department on 05/28/2024 with chief complaint of shortness of breath. Patient seen at bedside. No acute overnight events. Patient is POD #4 s/p right leg BKA today for severe osteomyelitis and gangrene of the right foot. Continue PO doxycycline and slight increase in WBC count today, repeat hematology panel in am. Surgery has cleared patient from a surgical standpoint and stump protector arranged. Patient will need to follow-up with general surgery outpatient in two weeks. Patient had zero oral intake yesterday and appears more withdrawn. Started appetite stimulant. Patient has also been refusing medications and discussed all treatment options including hospice and patient will think about his options. During hospitalization patient developed new onset atrial fibrillation with RVR. Now in sinus rhythm and continue amiodarone 200 mg p.o. twice daily. Previously on heparin gtt. for elevated [id number] score and transitioned to Eliquis 5mg po bid. Patient has severe underlying heart failure. Echocardiogram completed which revealed severe systolic dysfunction, EF 10 to 15%, akinetic apex with severe global hypokinesis. Continue preload reduction with fluid restriction and hold Bumex today for worsening JADIEL. Hold starting afterload reduction with EMERALD/ARB or Entresto given patient's renal function and soft blood pressure. Continue metoprolol succinate 12.5mg PO QD for neurohormonal blockade. We will continue to institute goal directed medical therapy as tolerated although have been unsuccessful to date given soft blood pressure. Patient was also found to have JADIEL on CKD stage IIIb. Etiology thought to be secondary to cardiorenal syndrome although now worsening with bumex. Consult nephrology, recommendations appreciated. Blood sugars continue to improve with basal and bolus insulin. Target blood sugar of 140-180 while hospitalized. Patient has severe PAD with multiple amputations; continue Atorvastatin. Repeat hematology and chemistry panel in AM. Prognosis guarded. Dr. Moreno
--- NOTE | 2024-06-04 14:29 | PC.SS ---
Rounding Note: Plan is to increase oral intake. Patient pending bowel movement, refusing laxatives.
--- NOTE | 2024-06-04 21:10 | ESPR_ITS ---
RE: RAFA SIDDIQI : 1960 DATE OF SERVICE: 06/04/2024 CARDIOLOGY NOTE: The patient is a 63-year-old male, very well known to me, longstanding history of ischemic cardiomyopathy, chronic systolic heart failure HFrEF ejection fraction of 25% now, ejection fraction only 15%, admitted to the hospital with osteomyelitis, underwent amputation of right lower extremity and followed by cardiology closely because of HFrEF and multiple medical problems, has multivessel coronary artery disease, not suitable for bypass surgery because of diffuse disease, multisegmental disease and low ejection fraction. He has had previous amputation, now came with osteomyelitis and underwent successful amputation. Also, he has chronic kidney disease stage IV, continues to feel okay. His appetite is poor. He does not complain of any chest pain, shortness of breath, congestive heart failure, appears to be well compensated clinically. He is not offering any complaints of chest pain, orthopnea, or PND. OBJECTIVE: Vital Signs: Blood pressure 149/73, pulse 79. Neck: Supple. No JVD. Chest: Symmetrical. Lungs: Decreased breath sounds, no rales, rhonchi. Heart: S1, S2, regular, S3 gallop heard. Abdomen: Thin and soft. Extremities: Evidence of amputation below the knee amputation of lower extremities. /Rectal: Not performed. Neurologic: Unremarkable. LABORATORY DATA: Showed creatinine is stable at 2.2, hemoglobin 9.4, white count 13.9. His creatinine clearance is around 32, improved from 24 yesterday appears to be stage IIIB. BNP is markedly elevated at 3280. DIAGNOSTIC DATA: Chest x-ray showed cardiomegaly and evidence of pulmonary congestion as well. ASSESSMENT: 1. Status post amputation of osteomyelitis, stable. 2. Acute on chronic systolic heart failure, well compensated, clinically stable. Ejection fraction 15% to 20%. 3. Multivessel coronary artery disease, not suitable for bypass graft surgery. 4. Chronic kidney disease, creatinine clearance of 32, slightly improved due to combination of pre and post renal azotemia. The right heart failure has a low cardiac output. RECOMMENDATIONS: Continue amiodarone 200 mg b.i.d. for atrial fibrillation and apixaban resumed already. The patient has CKD as well as creatinine of 2.2 and body weight is 134 and we would recommend reducing the apixaban dose to 2.5 mg dose. Also continue the bumetanide 2 mg daily as a diuretic for now, tolerating well so far, metoprolol succinate 12.5 mg daily and recommend the patient to see me for followup as an outpatient following discharge pladarius. DT: 19:27:38 TT: 20:25:00 Ref: [id number] - TID: [id number]
[2024-06-04] MEDS: APIXABAN 2.5 MG TABLET PO (22:13)
[2024-06-04] MEDS: HYDROcodone/APAP 5/325 TABLET 1 TAB PO (22:25)
[2024-06-05] VITALS (8 sets, daily range): BP systolic 103–117; BP diastolic 70–74; PULSE 67–98; RESP 12–99; TEMP 36.1–36.6; O2SAT 97–99; BMI 19.7
[2024-06-05 05:56] LABS: Immature Granulocytes % (Auto) 1 % (0-0); Immature Granulocytes Auto 0.11 Thou/mm3 (0.00-0.00); Lymphocytes # (Auto) 0.7 Thou/mm3 (1.0-4.8); Lymphocytes % (Auto) 7 % (10-50); Mean Corpuscular HGB Conc 29.3 g/dl (31.0-37.0); Mean Corpuscular Hemoglobin 23.4 pg (25.0-35.0); Monocytes # (Auto) 0.5 Thou/mm3 (0.0-0.8); Monocytes % (Auto) 5 % (0-12); Neutrophils # (Auto) 8.7 Thou/mm3 (1.8-7.7); Neutrophils % (Auto) 85 % (37-80); Platelet Count 367 Thou/mm3 (140-440); RDW Standard Deviation 53.8 fL (35.1-43.9); Red Blood Count 3.63 Miln/mm3 (4.50-5.90); White Blood Count 10.2 Thou/mm3 (3.8-10.6)
[2024-06-05 05:58] LABS: Basophils % (Auto) 0 % (0-2.5); Eosinophils # (Auto) 0.2 Thou/mm3 (0.0-0.5); Eosinophils % (Auto) 2 % (0-10); Mean Corpuscular Volume 80 fL (80-100); Nucleated Red Blood Cell % 0 /100 WBC (0)
[2024-06-05 06:29] LABS: Albumin, Serum 3.1 gm/dL (3.4-4.8); Anion Gap 8 (7-16); BUN/Creatinine Ratio 24 Ratio (12-20); Blood Urea Nitrogen 38 mg/dL (9-23); Calcium 8.2 mg/dL (8.3-10.6); Calcium (Corrected) 8.9 mg/dL (8.5-10.1); Carbon Dioxide 26.7 mMol/L (20.0-31.0); Chloride 105 mMol/L (98-107); Creatinine (Component) 1.6 mg/dL (0.6-1.3); Estimated Creatinine Clearance 37.1 mL/min (>60); Glucose 154 mg/dL (74-106); Osmolality,Calculated 291 (275-295); Phosphorous 2.8 mg/dL (2.4-5.1); Potassium 3.7 mMol/L (3.4-5.1); Sodium 140 mMol/L (136-145); eGFR 48 See Note
[2024-06-05 06:53] LABS: Hemoglobin 8.5 g/dL (13.5-16.0)
[2024-06-05] MEDS: INSULIN LISPRO (AdmeLOG) 1 UNIT/0.01 ML UNIT SC (07:45)
[2024-06-05] MEDS: MIRTAZAPINE 15 MG TABLET 7.5 MG PO (10:03)
[2024-06-05] MEDS: APIXABAN 2.5 MG TABLET PO (10:04)
[2024-06-05] MEDS: DOXYCYCLINE 100 MG TABLET PO (10:04)
[2024-06-05] MEDS: AMIODARONE HCL 200 MG TABLET PO (10:05)
[2024-06-05] MEDS: INSULIN GLARGINE (Lantus) 5 UNIT/0.05 ML (PER 5 UNITS) 15 UNIT SC (10:05)
[2024-06-05] MEDS: HYDROmorphone INJ 2 MG/ML VIAL 0.25 MG IVP ×2 (10:16→16:05)
[2024-06-05] MEDS: PANTOPRAZOLE INJ 40 MG VIAL IV (10:17)
--- NOTE | 2024-06-05 12:03 | PC.NURSE ---
PROVIDER CALLED AND INFORMED PATIENT REFUSED TO TAKE MEDICATION ORDERED TO HELP HIM HAVE BM. PATIENT STATED HE HAD A BM 06/03
--- NOTE | 2024-06-05 12:05 | ESPR_ITS ---
Documentation for date of: 06/05/24 Subjective Subjective Interval history: Reason for consult: JADIEL on CKD History of present illness: The patient is a 63-year-old male with a previous medical history of CAD status post PCI, hypertension, hyperlipidemia, CKD stage IIIb, insulin-dependent type 2 diabetes, HFrEF, osteomyelitis, status post left BKA, right hand third/5 finger amputation who was admitted to the hospital on 05/28 due to shortness of breath. Hospital course: He was initially admitted due to CHF exacerbation and underlying infection pneumonia versus osteomyelitis. Cardiology was consulted, echo showed ejection fraction of 10% and also had a rapid response due to tachycardia, was started on amiodarone due to A-fib with RVR, beta-blockers and diuretics. Surgery was consulted due to right foot ulcer, x-ray of the right foot showed osteomyelitis and he underwent right-sided BKA. Nephrology was consulted for JADIEL on CKD. 06/01/2024: Patient was seen and examined by the bedside with family members present. Patient verbally agreed to share his medical condition updates with his family present. He denies shortness of breath, chest pain, headache, dysuria. He reports that his pain levels is 8 out of 10, declines additional pain meds. Patient condition was discussed with him, he was explained that his kidney function has worsened and he may require dialysis in the future. Patient stated that he does not want dialysis. Labs showed hemoglobin 7.4, sodium 135, potassium 4.3, BUN 69, creatinine 2.7, EGFR 25. Will continue to monitor patient closely for now. Bumex on hold till 06/03 for now. 06/02/2024 patient currently seen in telemetry. Resting comfortably. Noted family did not want any dialysis. Blood pressure 100/68, heart rate 72. WBC 12.1, hemoglobin 7.5, platelets 367. Sodium 137, potassium 4.2, BUN 73, creatinine 3.1, calcium 9.8, magnesium 2.1, LFTs normal 06/03/2024 patient currently seen in telemetry. Resting comfortably. at bedside. WBC 11.2, hemoglobin 8.9, platelets 361. Sodium 137, potassium 4, BUN 68, creatinine 2.8, GFR 24, phosphorus 5.2. Bumex on hold for the last 3 days. Anxious to go home. Still having some pain in the right stump 06/05/2024 patient currently seen in telemetry. Resting comfortably. Creatinine improved to 1.6. resumed Bumex. Clinically seems to have some fluid overload. Patient absolutely declines dialysis. Will give Procrit, iron for anemia Review of Systems Review of Systems Narrative Review of Systems: General: Denies weight loss, fever and chills. HEENT: Denies changes in vision and hearing. Resp: Denies SOB, cough and wheezing. CVS: Denies palpitations and CP. GI: Denies abdominal pain, nausea, vomiting and diarrhea. : Denies dysuria and urinary frequency. MSK: Denies myalgia and joint pain. Denies rash and pruritus. Reports pain in the right BKA stump. Neuro: Denies headache and syncope. Admits depression Exam Vital Signs Temp Pulse Resp BP Pulse Ox O2 Del Method O2 Flow Rate 36.6 C 67 24 H 109/70 99 Room Air 2 06/05/24 08:00 06/05/24 10:24 06/05/24 10:24 06/05/24 10:05 06/05/24 08:00 06/05/24 08:00 06/04/24 08:00 Narrative Exam Physical Exam General: Awake and in no acute distress. Dry mucosa HEENT: Normocephalic, atraumatic, mucous membranes moist. Heart: Regular rate and rhythm, no murmurs. Lungs: Clear to auscultation with no wheezing or crackles. Abdomen: Soft, nondistended, nontender, positive bowel sounds. ?No guarding or rebound tenderness. Neurologic: Alert and oriented x3, no gross neurological deficit, and patient able to move all 4 extremities. Extremities: Left BKA. Right BKA site is covered in dressings. Fingers missing from the right hand Skin: No rash or ecchymoses. Patient seems to be sad Objective Labs 06/05/24 05:09 06/05/24 05:09 Labs: Laboratory Results - last 24 hr 06/05/24 05:09 WBC 10.2 RBC 3.63 L Hgb 8.5 L Hct 29.0 L MCV 80 MCH 23.4 L MCHC 29.3 L RDW Std Deviation 53.8 H Plt Count 367 Neut % (Auto) 85 H Lymph % (Auto) 7 L [place] % (Auto) 5 Eos % (Auto) 2 Baso % (Auto) 0 Neut # (Auto) 8.7 H Lymph # (Auto) 0.7 L [place] # (Auto) 0.5 Eos # (Auto) 0.2 Baso # (Auto) 0.0 Immature Gran # (Auto) 0.11 H Absolute Nucleated RBC 0.00 Immature Gran % 1 H Nucleated RBC % 0 Sodium 140 Potassium 3.7 Chloride 105 Carbon Dioxide 26.7 Anion Gap 8 BUN 38 H Creatinine 1.6 H D Estim Creat Clear Calc 37.1 L eGFR 48 L BUN/Creatinine Ratio 24 H Glucose 154 H D Calculated Osmolality 291 Calcium 8.2 L Corrected Calcium 8.9 Phosphorus 2.8 Magnesium 2.0 Albumin 3.1 L Assessment & Plan Additional Assessment & Plan Additional Plan: The patient is a 63-year-old male with a previous medical history of CAD status post PCI, hypertension, hyperlipidemia, CKD stage IIIb, insulin-dependent type 2 diabetes, HFrEF, osteomyelitis, status post left BKA, right hand third/5 finger amputation who was admitted to the hospital on 05/28 due to shortness of breath. #JADIEL on CKD stage IIIb #Prerenal Azotemia #Hyponatremia Baseline Creatinine level is 1.8 at 05/04 Most likely in the setting of cardiorenal syndrome due to CHF excerbation. 06/04/2024: Creatinine slightly better at 1.6 Plan: ? Will continue to monitor patient, patient does not want dialysis at this point of time -Resume Bumex once p.o. daily ? Avoid nephrotoxic agents ? Renally dose medication ? Monitor daily CMP #Sepsis 2/2 #Osteomyelitis of the right foot #Afib with RVR #new onset Afib #Troponinemia #Acute on chronic HFrEF exacerbation (EF 10-15%) #Acute hypoxic/hypercapnic respiratory failure #History of coronary artery disease s/p stent placement #Cardiorenal syndrome #New dysphagia #Poor p.o. intake #Insulin-dependent type 2 diabetes #Hyperglycemia #Possible superimposed aspiration pneumonia? #Leukocytosis #Microcytic anemia - management as per primary team Plan of care discussed with primary team. Encourage p.o. fluids. Diuretics resumed. Did discuss with patient and family regarding cardiorenal syndrome and worsening renal function with diuretics. Patient declines dialysis. Continue with present management. Prognosis guarded. On mirtazapine
--- NOTE | 2024-06-05 14:08 | ESDS_ITS ---
<Statement entered by Sandra Jaramillo MD - 06/05/24 16:27> Patient was seen and examined at bedside. His level of energy and mood has improved significantly. He reported that he had a bowel movement on the of this month. When he was asked about his oral intake he reported that he is eating from food that is being brought for him by his from his home as he d oes not like the hospital food. Patient was cleared from cardiology standpoint for discharge. His serum creatinine continue to improve and it is today 1.9. General surgery also cleared the patient for discharge from their standpoint. Will discharge the patient on antibiotic doxycycline for 4 more days, wound care, and follow-up with the general surgeon, cardiology, and his primary care physician. The patient will be discharged to SNF his A1c level is 10.2 not well-controlled for that reason we will continue the patient sliding scale at the facility to be adjusted by his primary care physician. Patient deemed to be clinically stable for discharge. - Patient's plan and care discussed with my attending, Dr. Tiffanie Jaramillo MD Internal Medicine PGY-2 Planned Discharge Date 06/05/24 DS: Providers Provider Date of admission: 05/28/24 04:06 Primary care physician: Jalil Le MD Admitting Provider: Waldemar Garcia MD Attending Provider on Admission: Hermilo Moreno MD Consults: 05/28/24 04:10 Referral Speech Therapy Routine Comment: 05/28/24 04:13 Referral Registered Dietitian Routine Comment: 05/28/24 04:15 Referral Wound Care Routine Comment: 05/28/24 04:16 Consult to General Surgery Routine Comment: Consulting Provider: Jean Pierre Nelson 05/28/24 05:46 Referral Infection Control Routine Comment: Reason for Infection Control Referral: Recent Surgical Wound Referral Occupational Therapy Routine Comment: Health Equity Referral - Transportation Routine Comment: Positive screening for transportation needs. 05/28/24 13:37 Consult to Cardiology Routine Comment: Consulting Provider: Chaz Fajardo Instructions: Cardiac clearance for R BKA and afib with rvr 06/01/24 10:46 Consult to Nephrology Stat Comment: possible cardio renal syndrome Consulting Provider: Andry Fonseca 06/02/24 08:03 Referral Physical Therapy Routine Comment: Physician Instructions: 06/03/24 10:55 Referral Physical Therapy Stat Comment: Physician Instructions: Instructions: To help the patient move from the bed to chair Attending Provider on DC: Hermilo Moreno MD Discharging Provider: Hermilo Moreno MD DS: Diagnosis Problem List Completed Was Problem List Reviewed/Reconciled?: Yes Hospital Course Hospital Course Hospital course: Venkat is a 63-year-old male with past medical history of CAD, status post PCI with LAD stents, essential hypertension, hyperlipidemia, CKD stage IIIb, insulin-dependent type 2 diabetes (last A1c 9.0), HFrEF (EF 30 to 35%), osteomyelitis with past surgeries and amputations (left BKA, right hand 3rd-5th finger) secondary to diabetic foot ulcer presenting who was admitted to [facility] on 05/28/2024 for osteomyelitis of the R foot, requiring R BKA performed by Dr. Rudolph. Pt had come to the ED for evaluation of generalized weakness, failure to thrive and SOB. He had come to the ED normotensive, regular heart rate, respiratory rate 18, afebrile satting 99 initially but then requiring 2 to 3 L of nasal cannula oxygenation. Fingerstick blood glucose initially was in the 600 but had improved with 10 units regular insulin. Pertinent lab findings include WBC 18.5, hemoglobin 8.6 (MCV 77), platelet count 440, sodium 125, potassium 5.4, creatinine 2.5, BUN 77 and BNP > 3280. Foot x-ray shows no marked difference deviation from past imaging, EKG does not show any concerning ST changes and chest x-ray shows perihilar edema along with bilateral pneumonia pattern. Medicine was consulted and patient was admitted for further evaluation. On the floors, patient had a rapid called on him for evaluation of ventricular tachycardia, heart rate in the 150s, was hypotensive. EKG showed A- fib with RVR patient was then started on amio drip in which the patient had return to sinus. Patient was evaluated by cardiology for surgical preop as Dr. Rudolph had evaluated the patient and had recommended R BKA. Echo for patient was done which showed ischemic cardiomyopathy and EF of 10-15%. Pt was transitioned to Amio 200 mg BID and Eliquis 5 mg BID. Patient had went for BKA and had tolerated the procedure with femoral block and only regional anesthesia was done. Pt was monitored for recovery, encouraging oral intake and pain control. Pt's wound culture had come back with MRSA, however patient already had procedure done. Throughout the rest of the hospital admission, medical management was done for patient, and patient was experiencing failure to thrive. Hospice was discussed with patient and patient had expressed and stated he was not interested in hospice at the time and willing to continue medical management. Patient was discharged to SNF after having a bowel movement and was recommended to continue medical management and to follow-up with his primary care doctor and utility sales representative. He is to continue to finish up his doxycycline antibiotic treatment. Follow-up with a primary care physician within 1 week from discharge Follow-up with your utility sales representative within 1 week from discharge Follow-up with wound care clinic for dressing of your surgical wound Use medications as prescribed In case of worsening of your symptoms please return to the ED as soon as possible #Sepsis 2/2 #Osteomyelitis of the right foot #Afib with RVR, stable #new onset Afib #Troponinemia, resolved #Acute on chronic HFrEF exacerbation (EF 10-15%) #Acute hypoxic/hypercapnic respiratory failure #History of coronary artery disease s/p stent placement #Cardiorenal syndrome #JADIEL on CKD stage IIIb, improving #Prerenal Azotemia #Hyponatremia improving #Dysphagia #Poor p.o. intake #Nausea #Failure to thrive #Constipation #Insulin-dependent type 2 diabetes #Hyperglycemia #Possible superimposed aspiration pneumonia?, resolved #Leukocytosis, improving #Microcytic anemia Patient seen and care discussed with my senior resident, Dr. Jaramillo, and my attending physician, Dr. Tiffanie Bsasett, PGY-1 Time Spent with Patient Time attestation: Total time spent providing and/or coordinating discharge services: Time spent: Greater than 30 minutes Exam Vital Signs Temp Pulse Resp BP Pulse Ox O2 Del Method O2 Flow Rate 97.8 F 76 24 H 109/70 99 Room Air 2 06/05/24 08:00 06/05/24 12:00 06/05/24 10:24 06/05/24 10:05 06/05/24 08:00 06/05/24 08:00 06/04/24 08:00 Narrative Exam General:AAOx3, NAD HEENT: Normocephalic, atraumatic, dry mucous membranes Heart: Regular rate and rhythm, no murmurs. Lungs: Clear to auscultation with no wheezing or crackles. Abdomen: Soft, nondistended, nontender, positive bowel sounds. ?No guarding or rebound tenderness. Neurologic: Alert and oriented x3, no gross neurological deficit, and patient able to move all 4 extremities. Extremities: Left BKA. Right BKA site is covered in dressings, numerous digits in R hand missing Skin: Skin turgor present in UE bilat Psych: Flat affect, signs of depressive state, not the most cooperative person with verbal responses Discharge Plan Plan Patient Disposition: Xfer Skilled Nsg Fac (SNF) Patient condition on transfer: Stable and Benefits outweigh risks Care Plan Goals: Follow-up with a primary care physician within 1 week from discharge Follow-up with your utility sales representative within 1 week from discharge Follow-up with wound care clinic for dressing of your surgical wound Use medications as prescribed In case of worsening of your symptoms please return to the ED as soon as possible Insulin sliding scale: For management of your diabetes mellitus and prison facility in addition to the basal insulin. FINGERSTICK RESULT HUMALOG INSULIN (SC) Resistant Scale < 130 No coverage 131-180 4 units SC 181-240 8 units SC 241-300 10 units SC 301-350 12 units SC 351-400 16 units SC greater than 400 20 units SC, Call MD Prescriptions/Referrals Prescriptions/Med Rec: New amiodarone 200 mg Tablet 200 mg PO BID 30 Days Qty: 60 0RF Eliquis 2.5 mg Tablet 2.5 mg PO BID 15 Days Qty: 30 0RF hydrocodone-acetaminophen 5-325 mg Tablet 1 tab PO Q6HR MDD 20mg PRN (Reason: Pain Scale 4-6 (Moderate) 5 Days Qty: 20 0RF bumetanide 0.5 mg Tablet 2 mg PO QDAY 15 Days Qty: 60 0RF doxycycline hyclate 100 mg Tablet 100 mg PO BID 4 Days Qty: 8 0RF mirtazapine 15 mg Tablet 7.5 mg PO QDAY 15 Days Qty: 8 0RF metoprolol succinate 25 mg Tablet Extended Release 24 Hr 12.5 mg PO QDAY 15 Days Qty: 8 0RF sennosides [Senna Lax] 8.6 mg Tablet 8.6 mg PO QDAY PRN (Reason: Constipation) 7 Days Qty: 7 0RF pantoprazole 40 mg tablet,delayed release (DR/EC) 40 mg PO QDAY 30 Days Qty: 30 0RF insulin glargine [Lantus U-100 Insulin] 100 unit/mL Solution 15 unit SCi BID Qty: 10 0RF insulin lispro [Admelog U-100 Insulin lispro] 100 unit/mL Solution See Rx Instructions .ROUTE .COMPLEX 30 Days Qty: 10 0RF Rx Instructions: FINGERSTICK RESULT HUMALOG INSULIN (SC) Resistant Scale < 130 No coverage 131-180 4 units SC 181-240 8 units SC 241-300 10 units SC 301-350 12 units SC 351-400 16 units SC greater than 400 20 units SC, Call MD Continued metformin 1,000 mg tablet 1,000 mg PO BID aspirin 81 mg Tablet,Delayed Release (Dr/Ec) 81 mg PO QDAY gabapentin 300 mg Capsule 300 mg PO QDAY tamsulosin [Flomax] 0.4 mg Capsule 0.4 mg PO DAILY Discontinued Lantus Solostar U-100 Insulin 100 unit/mL (3 mL) insulin pen 35 unit subcut BID rosuvastatin 20 mg Tablet 20 mg PO QDAY bumetanide 1 mg tablet 1 mg PO BID Patient Comments: TAKE 1 TABLET BY MOUTH DAILY FOR ACUTE PULMONARY EDEMA. Referrals: Jalil Le MD [Primary Care Provider] - Patient/Caregiver Discharge Instructions Education Materials: Coping with Kidney Failure, CKD Dc, Amputation What to Expect After, Preventing Surgical Site Infections Print Language: Welsh Stand Alone Forms: [employer] Award Info., Patient Portal Info Letter Discharge Order Discharge Orders: Discharge (Routine); Ordered 06/05/24 Ordered By: Candace Bassett Quality Discharge Quality Measures VTE prophylaxis ([place]) Attestestation MD Attestation I have examined the patient, reviewed labs and imaging findings, discussed the case with the resident(s), and reviewed entered orders. I agree with the plan of care as outlined in this note. Dr. Moreno
[2024-06-05] MEDS: ferumoxytoL (NON-ESRD) 510 MG in SODIUM CHLORIDE 0.9% 100 ML 234 MG IV (14:21)
[2024-06-05] MEDS: EPOETIN ALFA-EPBX INJ 10,000 UNIT/ML VIAL (ESRD) 10000 UNIT SC (14:22)
--- NOTE | 2024-06-05 15:31 | PC.SS ---
SS spoke to Michelle and Cindy from [employer] they are ready to accept pt. SS attempted to setup transportation with [employer]. Per Capri from [email or web address], she has ran patient's health insurance and he is not in their system. SS called and setup transportation with [employer] and paid privately. Transportation cost was $280.00. SS provided with phone to provide payment to Waylon from [employer]. [employer] transportation is set for 5:45pm. Pt and are aware. Bedside nurse, Lola is aware and provided her with [employer]'s phone# to give report. Radha CHAVIS is aware.
== END 2024-06-05 17:54 | disposition skilled nursing facility (03) | DRG 853 ==
LOC: SERX 19:19 → SERHOLD 05-28 04:44 → S3NX 05-28 05:03 → S2NX 05-28 12:28
PROVIDERS: Internal Medicine; Internal Medicine Cardiovascular Disease; Registered Nurse General Practice; Student in an Organized Health Care Education/Training Program; Surgery; Admitting Provider Internal Medicine; Emergency Provider Emergency Medicine; PCP Family Medicine; Visit Provider Student in an Organized Health Care Education/Training Program
PROC: 0Y6H0Z1 Detachment at Right Lower Leg, High, Open Approach (ICD-10-PCS; CPT 27880; principal; 2024-05-31 09:00)
DX: A41.9 Sepsis, unspecified organism (principal); I21.A1 Myocardial infarction type 2; I50.23 Acute on chronic systolic (congestive) heart failure; J96.01 Acute respiratory failure with hypoxia; J96.02 Acute respiratory failure with hypercapnia; I13.0 Hypertensive heart and chronic kidney disease with heart failure and stage 1 through stage 4 chronic kidney disease, or unspecified chronic kidney disease; M86.171 Other acute osteomyelitis, right ankle and foot; E87.1 Hypo-osmolality and hyponatremia; N17.9 Acute kidney failure, unspecified; M86.8X7 Other osteomyelitis, ankle and foot; I42.0 Dilated cardiomyopathy; I47.10 Supraventricular tachycardia, unspecified; E11.52 Type 2 diabetes mellitus with diabetic peripheral angiopathy with gangrene; R13.10 Dysphagia, unspecified; I25.10 Atherosclerotic heart disease of native coronary artery without angina pectoris; Z95.5 Presence of coronary angioplasty implant and graft; N18.32 Chronic kidney disease, stage 3b; E11.22 Type 2 diabetes mellitus with diabetic chronic kidney disease; Z79.4 Long term (current) use of insulin; E78.5 Hyperlipidemia, unspecified; Z89.512 Acquired absence of left leg below knee; E11.69 Type 2 diabetes mellitus with other specified complication; I48.91 Unspecified atrial fibrillation; K59.00 Constipation, unspecified; R62.7 Adult failure to thrive; D50.9 Iron deficiency anemia, unspecified; E87.6 Hypokalemia; E11.65 Type 2 diabetes mellitus with hyperglycemia
CPT/HCPCS: 36415; 71045; 73630; 80048; 80051; 80053; 80061; 80069; 80202; 82010; 83036; 83605; 83735; 83880; 84100; 84132; 84484; 85025; 85610; 85652; 85730; 86140; 86850; 86900; 86901; 87040; 87070; 87077; 87081; 87186; 87205; 87811; 92526; 92610; 93005; 93306; 96361; 96372; 96374; 97161; 99285; A4217; A4649; J0171; J0283; J1100; J1200; J1643; J1644; J1815; J1940; J2250; J2270; J2405; J2470; J2543; J2795; J3010; J3370; J3480; J3490; J7030; J7050; Q0138; Q5105; A9270

== ENCOUNTER 2024-07-18 08:25 | Inpatient (IN) | payer OTHER, MEDICARE, SELFPAY ==
--- NOTE | 2024-07-18 08:51 | PD.EDWOUND ---
ED Wound/Laceration-RME/HPI General Chief Complaint: Wound Recheck / Suture Removal Stated Complaint: wound Time Seen by Provider: 07/18/24 08:39 Arrival date/time: 07/18/24 08:25 RME / HPI RME / HPI narrative: DR. KIM MAIN ED EVALUATION: 64-year-old male patient with a history of right BKA with Dr. Rudolph on 05/31/24 BIBA from [facility] for progressive blackening of the right BKA surgical wound. Saw Dr. Rudolph 2 days ago who advised him that he would to come to the hospital. Denies pain. Denies fever. Related Data Home Medications ?Medication ?Instructions ?Recorded ?Confirmed metformin 1,000 mg tablet 1,000 mg PO BID 06/24/20 05/28/24 aspirin 81 mg tablet,delayed 81 mg PO QDAY 03/23/22 05/28/24 release gabapentin 300 mg capsule 300 mg PO QDAY 01/01/24 05/28/24 tamsulosin 0.4 mg capsule (Flomax) 0.4 mg PO DAILY 01/01/24 05/28/24 Previous Rx's ?Medication ?Instructions ?Recorded insulin glargine 100 unit/mL 15 unit (0.15 mL) SCi BID #10 mL 06/05/24 subcutaneous solution (Lantus U-100 Insulin) Allergies Allergy/AdvReac Type Severity Reaction Status Date / Time No Known Allergies Allergy Verified 05/28/24 05:31 Review of Systems Review of Systems Systems Reviewed: All systems reviewed, normal except as documented Narrative Review of Systems: GEN: No fever, no chills, no weight loss EYES: No discharge, no visual changes, no pain HEENT: No ear pain, no congestion, no sore throat PULM: No shortness of breath, no cough, no congestion CV: No chest pain, no dyspnea on exertion, no palpitations GI: No nausea, no vomiting, no diarrhea, no pain, no constipation : No frequency, no urgency and no dysuria MUSC/SKEL: + right BKA surgical wound necrosis, no back pain SKIN: No rash PSYCH: No hallucinations, no depression HEME/LYMPH: No easy bleeding or bruising tendencies NEURO: No weakness, no headache Past Medical History Past Medical History NEUROLOGIC: Positive Neurological Disorders and Peripheral Neuropathy CARDIAC: Positive Cardiac Disorders, Myocardial Infarction, Coronary Artery Disease, Hypercholesterolemia, Cellulitis and Hypertension; Negative Cardiomyopathy RESPIRATORY: Positive Pneumonia MUSCULOSKELETAL: Positive Musculoskeletal Disorders and Arthritis ENDOCRINE: Positive Endocrine Disorders and Diabetes Mellitus Type 2 OTHER HISTORY: Positive Hospitalization and Chicken Pox Family History FAMILY HISTORY: Positive Family Cardiac Disorders Surgical History SURGICAL: Positive Coronary Stent, Cardiac Catheterization and Angiogram Social History SMOKING STATUS: Never smoker SUBSTANCE USE: does not use ALCOHOL: Never ED Exam Narrative Physical exam: GENERAL APPEARANCE: alert and oriented x 4, well-developed, well-nourished, no acute distress VITALS: All vitals were reviewed and the pulse ox is 99% on room air, which is normal according to my interpretation. HEENT: Normocephalic, atraumatic; pupils equal, round, reactive to light; EOMI; mucous membranes pink, moist; oropharynx clear NECK: Supple LUNGS: CTABL; no wheezes, no rales, no rhonchi HEART: Regular rate, regular rhythm; normal S1, S2; no murmurs ABDOMEN: non distended; normal BS; soft, no tenderness, no guarding, no rebound; no masses, no organomegaly, no hernia BACK: no CVA tenderness EXTREMITIES: The right BKA area is necrotic looking, but dry. NEUROLOGIC: awake; alert and oriented x4; cranial nerves II-XII grossly intact; no focal sensory or motor deficits PSYCHIATRIC: appropriate mood and affect SKIN: warm, dry, normal color; no rashes Course Quality Measures none Orders Category Date Time Status COVID-19 Screening Questionnaire NOW Care 07/18/24 10:58 Active Decision to Admit X1 Care 07/18/24 10:58 Active Consult to General Surgery Stat Cons 07/18/24 10:46 Ordered CBC Stat Lab 07/18/24 09:08 Completed Comprehensive Metabolic Panel Stat Lab 07/18/24 09:50 Completed Partial Thromboplastin Time Stat Lab 07/18/24 09:08 Completed Prothrombin Time with INR Stat Lab 07/18/24 09:08 Completed Piper/Tazo 3.375 gm [Zosyn] Med 07/18/24 10:34 Active 3.375 gm in 50 ml IV X1 Vancomycin Inj 1,000 mg Med 07/18/24 10:35 Active Sodium Chloride 0.9% 250 ml [Ns] 250 ml IV X1 Vital Signs Vital signs: Vital Signs Temperature 98.1 F 07/18/24 09:05 Pulse Rate 65 07/18/24 09:05 Respiratory Rate 18 07/18/24 09:05 Blood Pressure 114/62 07/18/24 09:05 Pulse Oximetry (%) 99 07/18/24 09:05 Oxygen Delivery Method Room Air 07/18/24 09:05 Wound / Laceration MDM Narrative MDM Narrative:: I, Chana Galindo, am scribing for and in the presence of Dr. Kim. Patient data External records reviewed:: [facility] previous records (Reviewed last admission discharge dated 06/05/24, patient admitted for the following: JADIEL) Clinical information provided by:: patient Social determinants that could affect healthcare access:: none Patient has the following chronic illnesses:: CAD, diabetes, osteomyelitis, bilateral BKA How is presenting disease/condition affected by chronic disease/condition?: exacerbated by Evaluation data The following diagnostics were reviewed and interpreted by me:: lab results Lab and/or radiology exams considered but not ordered:: none Interpretation Summary: WBC 11.1 creatine 2.9 Medications / Prescriptions Medications or Prescriptions considered but not ordered:: none Medication administrations:: Medication Administration History Vancomycin HCl 1,000 mg/ (Sodium Chloride) 250 mls @ 150 mls/hr IV X1 ONE Stop: 07/18/24 12:14 Piperacillin/Tazobactam/Dextrose (Zosyn) 3.375 gm in 50 mls @ 100 mls/hr IV X1 ONE Stop: 07/18/24 11:03 see above Consultations Consultation(s) initiated? (list below): Yes Consultation #1 (Physician, Specialty, Details): Discussed test HPI, PMHx, lab, radiology results and/or management with Dr. Rudolph. Will consult an admission to the hospitalist. Time: 10:30 Consultation #2 (Physician, Specialty, Details): Discussed test HPI, PMHx, lab, radiology results and/or management with hospitalist Dr. Raman. Will admit for further evaluation and management. Accepts patient for admission. Time: 10:53 Diagnosis Wound Differential Diagnosis: abscess and other (osteomyelitis, sepsis) Most likely diagnosis given after review of the tests above:: Necrotic surgical wound Admission Indicated Admission indicated?: indicated Admission Request Was there a request for admission?: Yes Admission Attestation Admission request attestation: Discussed case with [] from Hospitalist service regarding admission. Discussed patients ED course, exam findings, labs, and radiology results. The Hospitalist [agrees,declines] to accept the patient for admission. Disposition Plan Disposition Plan: Admit Discharge Plan Plan Patient Disposition: Admit Acute Care w/in Hospital Prescriptions/Referrals Prescriptions/Med Rec: No Action metformin 1,000 mg tablet 1,000 mg PO BID aspirin 81 mg Tablet,Delayed Release (Dr/Ec) 81 mg PO QDAY gabapentin 300 mg Capsule 300 mg PO QDAY tamsulosin [Flomax] 0.4 mg Capsule 0.4 mg PO DAILY insulin glargine [Lantus U-100 Insulin] 100 unit/mL Solution 15 unit SCi BID Qty: 10 0RF Referrals: Jalil Le MD [Primary Care Provider] - In 1 week Problem List Clinical Impression: Necrosis of surgical wound Patient/Caregiver Discharge Instructions Print Language: Palestinian Stand Alone Forms: [employer] Award Info., Patient Portal Info Letter
[2024-07-18 08:55] VITALS: PULSE 66; RESP 16; O2SAT 99; BMI 28.5
[2024-07-18 09:05] VITALS: BP 114/62; PULSE 65; RESP 18; TEMP 36.7; O2SAT 99
--- NOTE | 2024-07-18 09:10 | PC.NURSE ---
PATIENT CAME IN FROM [facility] VIA EMS FOR C/O WOUND INFECTION TO HIS RT LOWER EXTREMITY. PT HAD A RECENT BKA AND PER STAFF WOUND IS NOT HEALING. NECROTIC TISSUE NOTED AROUND INCISION AREA. NO DRAINAGE OR BAD SMELL NOTED AT THIS TIME. IVL ESTABLISHED AND BLOOD DRAWN FOR ANALYSIS. WARM BLANKET AND PILLOW GIVEN TO PT FOR COMFORT. PILLOW ALSO APPLIED UNDER LOWER EXTREMITIES AT THIS TIME. CALL LIGHT IN REACH. WILL CONTINUE TO MONITOR.
[2024-07-18 09:19] LABS: Basophils # (Auto) 0.1 Thou/mm3 (0.0-0.2); Basophils % (Auto) 1 % (0-2.5); Eosinophils # (Auto) 0.3 Thou/mm3 (0.0-0.5); Eosinophils % (Auto) 3 % (0-10); Hematocrit 28.8 % (41.0-53.0); Hemoglobin 9.1 g/dL (13.5-16.0); Immature Granulocytes % (Auto) 1 % (0-0); Immature Granulocytes Auto 0.08 Thou/mm3 (0.00-0.00); Lymphocytes # (Auto) 2.8 Thou/mm3 (1.0-4.8); Lymphocytes % (Auto) 25 % (10-50); Mean Corpuscular HGB Conc 31.6 g/dl (31.0-37.0); Mean Corpuscular Hemoglobin 24.4 pg (25.0-35.0); Mean Corpuscular Volume 77 fL (80-100); Monocytes # (Auto) 0.8 Thou/mm3 (0.0-0.8); Monocytes % (Auto) 7 % (0-12); Neutrophils # (Auto) 7.1 Thou/mm3 (1.8-7.7); Neutrophils % (Auto) 64 % (37-80); Nucleated Red Blood Cell % 0 /100 WBC (0); Platelet Count 369 Thou/mm3 (140-440); RDW Standard Deviation 57.6 fL (35.1-43.9); Red Blood Count 3.73 Miln/mm3 (4.50-5.90); White Blood Count 11.1 Thou/mm3 (3.8-10.6)
[2024-07-18 09:50] LABS: INR 1.1 (0.9-1.3); Partial Thromboplastin Time 32.2 Seconds (22.0-36.0); Prothrombin Time 11.5 Seconds (9.0-12.2)
[2024-07-18 10:44] LABS: Alanine Aminotransferase 12 U/L (10-49); Albumin, Serum 3.2 gm/dL (3.4-4.8); Alkaline Phosphatase 70 U/L (46-116); Anion Gap 9 (7-16); Aspartate Amino Transferase 10 U/L (0-34); BUN/Creatinine Ratio 21 Ratio (12-20); Bilirubin,Total < 0.2 mg/dL (0.3-1.2); Blood Urea Nitrogen 61 mg/dL (9-23); Calcium (Corrected) 8.6 mg/dL (8.5-10.1); Chloride 100 mMol/L (98-107); Creatinine (Component) 2.9 mg/dL (0.6-1.3); Globulin 3.2 gm/dL (2.3-3.5); Glucose 107 mg/dL (74-106); Osmolality,Calculated 283 (275-295); Potassium 4.6 mMol/L (3.4-5.1); Sodium 133 mMol/L (136-145); Total Protein 6.4 gm/dL (5.7-8.2); eGFR 23 See Note
[2024-07-18] MEDS: PIPER/TAZO 3.375 GM 3.375 GM/50 ML BAG IV ×2 (11:17→22:16)
[2024-07-18] MEDS: Vancomycin Inj 1,000 MG in SODIUM CHLORIDE 0.9% 250 ML 250 ML 150 MG IV (11:21)
--- NOTE | 2024-07-18 12:01 | EKG_ITS ---
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
--- NOTE | 2024-07-18 13:45 | PC.NURSE ---
Pt. resting in [facility]. at and asking if pt. could eat. No Diet orders yet but called Dr. Padron for order. Waiting orders
[2024-07-18 15:47] VITALS: BP 104/60; PULSE 65; RESP 14; TEMP 36.3; O2SAT 100
--- NOTE | 2024-07-18 16:07 | PD.RESHP ---
Documentation for date of: 07/18/24 HPI History of Present Illness History of present illness: The patient is a 64-year-old male with a past medical history of CAD status post stents, hypertension, hyperlipidemia, CKD stage IIIb, type II DM, HFrEF 10-15%, bilateral BKA's, A-fib who presented to the ED on 07/18/2024 with complaints of progressive darkening of surgical sites. Per at bedside, the patient had visited Dr. Rudolph 2 days ago for follow-up after his right BKA who inspected the wound and did notice some changes. He was recommended by Dr. Rudolph to come to the ED for further evaluation. Otherwise, the patient has been stable has had no fevers or no pain he did fall a couple days prior to his visit to the surgeons office on his right knee and it was said to have been red at the time, he complained of some pain but no bleeding. ED course: In the ED, the patient was afebrile and hemodynamically stable. Labs showed WBC 11.1 Hgb 9.1 PLT 369 sodium 133 BUN 61 CR 2.9 glucose [address] Rudolph was consulted and recommended to admit the patient for possible debridement. PMHx-as above PSHx-as above Home meds-amiodarone, Bumex, insulin, Eliquis, gabapentin, [place]k, metformin, metoprolol, mirtazapine, tamsulosin Review of Systems Review of Systems Narrative Review of Systems: GENERAL: Denies fevers/chills or diaphoresis. HEENT: Denies headache or visual/hearing changes. Denies nasal discharge. NEURO: Denies unusual weakness or difficulty speaking. CARDIO: Denies chest pain or palpitations. PULM: Denies SOB, coughing, or wheezing. GI: Denies abdominal pain, N/V/C/D/reflux/gas, bright red blood per rectum or melena. Reports having BMs. URO: Denies burning/itching/pain/urinary changes. MSK/EXT/SKIN: Admits mild pain in right surgical site PSYCH: Cooperative, pleasant mood & affect. Past Medical History Past Medical History NEUROLOGIC: Positive Peripheral Neuropathy CARDIAC: Positive Myocardial Infarction, Coronary Artery Disease, Hypercholesterolemia and Hypertension MUSCULOSKELETAL: Positive Musculoskeletal Disorders and Osteomyelitis ENDOCRINE: Positive Endocrine Disorders and Diabetes Mellitus Type 2 HEMATOLOGIC: Negative Blood Disorders, Anemia, Leukemia, Hemophilia, Thalassemia, Sickle Cell Disease or Clotting Problems OTHER HISTORY: Positive Hospitalization and Chicken Pox; Negative Autoimmune Disease, Down Syndrome, Autism, Developmental Delay, Shingles, Falls, Blood Transfusions, Blood Transfusion Reaction, Anesthesia Reactions, Chemotherapy, Radiation Therapy, Hyperbaric Therapy, MRSA, VRSA, Vancomycin-Resistant Enterococci, Human Immunodeficiency Virus (HIV), Measles, Mumps, Rubella ([place] Measles), Pertussis, Clostridium Difficile, Cancer or Lung Cancer Surgical History SURGICAL: Positive Coronary Stent and Angiogram Social History SMOKING STATUS: Never smoker SECOND HAND EXPOSURE: No SUBSTANCE USE: does not use Exam Vital Signs Temp Pulse Resp BP Pulse Ox O2 Del Method O2 Flow Rate 97.4 F 65 14 104/60 100 Nasal Cannula 3 07/18/24 15:47 07/18/24 15:47 07/18/24 15:47 07/18/24 15:47 07/18/24 15:47 07/18/24 15:47 07/18/24 15:47 Narrative Exam GENERAL: AAOX3 NEURO: OPEN HEARTH [employer]ER grossly intact, moves extremities x4 HEENT: Moist mucosa. Eyes open, symmetrical, & clear CARDIO: No chest pain on palpation. Heart RRR, no obvious murmurs PULM: No noted coughing/dyspnea. Lungs CTA B/L, no R/W/R GI: Abdomen soft, nondistended, no pain on palpation. BSx4 URO/SKILL LABOR:: No further abnormalities noted. SKIN/MSK/EXT: Bilateral BKA. Right knee/surgical site wrapped in clean and dry bandage Results: Labs 07/19/24 04:47 07/19/24 04:47 Labs: Short CBC 07/18/24 Range/Units 09:08 WBC 11.1 H (3.8-10.6) Thou/mm3 Hgb 9.1 L (13.5-16.0) g/dL Hct 28.8 L (41.0-53.0) % Plt Count 369 (140-440) Thou/mm3 BMP 07/18/24 09:50 Sodium 133 L Potassium 4.6 Chloride 100 Carbon Dioxide 24.0 BUN 61 H Creatinine 2.9 H Glucose 107 H Calcium 8.0 L Liver Function 07/18/24 Range/Units 09:50 Total Bilirubin < 0.2 L (0.3-1.2) mg/dL AST 10 (0-34) U/L ALT 12 (10-49) U/L Alkaline Phosphatase 70 (46-116) U/L Albumin 3.2 L (3.4-4.8) gm/dL Quality Measures Quality Measures none Advance care planning discussed with:: patient and spouse Medications Home Medications and Allergies Home Medications ?Medication ?Instructions ?Recorded ?Confirmed ?Type metformin 1,000 mg tablet 1,000 mg PO BID 06/24/20 05/28/24 History aspirin 81 mg tablet,delayed 81 mg PO QDAY 03/23/22 05/28/24 History release gabapentin 300 mg capsule 300 mg PO QDAY 01/01/24 05/28/24 History tamsulosin 0.4 mg capsule (Flomax) 0.4 mg PO DAILY 01/01/24 05/28/24 History Allergies Allergy/AdvReac Type Severity Reaction Status Date / Time No Known Allergies Allergy Verified 05/28/24 05:31 Visit Medications Acetaminophen (Acetaminophen 325 Mg Tablet) 650 mg PO Q6H PRN PRN Reason: Pain 1-3 or Fever >100.3 Stop: 08/17/24 11:46 Hydrocodone Bitart/Acetaminophen (Hydrocodone/Apap 5/325 Tablet) 1 tab PO Q4HR PRN PRN Reason: PAIN SCALE 4-6 (Moderate Stop: 07/23/24 11:46 Amiodarone HCl (Amiodarone Hcl 200 Mg Tablet) 200 mg PO BID [facility] Stop: 08/17/24 20:59 Bisacodyl (Bisacodyl 10 Mg Supp) [address] QDAY PRN; Protocol PRN Reason: CONSTIPATION Stop: 08/17/24 12:01 Dextrose (Dextrose 50%-Water Inj 50 Ml Syringe) 25 ml IV Q15MIN PRN PRN Reason: BG 50-70 responsive npo pt Stop: 08/17/24 11:52 Dextrose (Dextrose 50%-Water Inj 50 Ml Syringe) 50 ml IV Q15MIN PRN PRN Reason: BG <50 OR BG <70 & pt unresponsive Stop: 08/17/24 11:52 Gabapentin (Gabapentin 300 Mg Capsule) 300 mg PO QDAY KENNY Stop: 08/18/24 08:59 Glucagon (Glucagon Inj 1 Mg Vial) 1 mg IM Q15MIN PRN PRN Reason: BG <70, and no IV access Piperacillin/Tazobactam/Dextrose (Zosyn) 3.375 gm in 50 mls @ 12.5 mls/hr IV Q12HR [facility]; Protocol Stop: 07/25/24 20:59 Insulin Glargine (Insulin Glargine (Lantus) 5 Unit/0.05 Ml (Per 5 Units)) 10 unit SC BID [facility] Stop: 08/17/24 20:59 Insulin Human Lispro (Insulin Lispro (Admelog) 1 Unit/0.01 Ml Unit) 0 unit SC AC [facility]; Protocol Stop: 08/17/24 16:59 Mirtazapine (Mirtazapine 15 Mg Tablet) 15 mg PO QDAY [facility] Stop: 08/18/24 08:59 Morphine Sulfate (Morphine Sulf Inj 10 Mg/Ml Vial) 2 mg IVP Q4HR PRN PRN Reason: PAIN SCALE 7-10 (Severe Stop: 07/23/24 11:52 Ondansetron HCl (Ondansetron Inj 2 Mg/Ml Inj 2 Ml) 4 mg IV Q6H PRN; Protocol PRN Reason: NAUSEA OR VOMITING Stop: 08/17/24 11:46 Tamsulosin HCl (Tamsulosin Hcl 0.4 Mg Capsule) 0.4 mg PO QDAY [facility] Stop: 08/18/24 08:59 Discontinued Medications Vancomycin HCl 1,000 mg/ (Sodium Chloride) 250 mls @ 150 mls/hr IV X1 ONE Stop: 07/18/24 12:14 Last Infusion: 07/18/24 13:48 Dose: Infused Piperacillin/Tazobactam/Dextrose (Zosyn) 3.375 gm in 50 mls @ 100 mls/hr IV X1 ONE Stop: 07/18/24 11:03 Last Infusion: 07/18/24 13:47 Dose: Infused Assessment & Plan Plan Summary: Patient is a 64-year-old male with a past medical history of CAD status post stents, hypertension, hyperlipidemia, CKD stage IIIb, type II DM, HFrEF 10-15%, bilateral BKA's, A-fib presented to the ED on 07/18/2024 with complaints of progressive down the surgical site. #Surgical wound necrosis #Leukocytosis The patient presented to Dr. Rudolph 2 days ago for follow-up after his right BKA who inspected the wound and did notice some changes. He was recommended by Dr. Rudolph to come to the ED for further evaluation. Otherwise, the patient has been stable has had no fevers or no pain he did fall a couple days prior to his visit to the surgeons office on his right knee and it was said to have been red at the time, he complained of some pain but no bleeding. Surgeon Dr. Rudolph was consulted and recommended to admit the patient for possible debridement. Plan: -Continue IV Zosyn and vancomycin -Blood and wound cultures -Continue monitoring CBC -Holding Eliquis for surgical intervention # HFrEF (EF 10-15%) #Acute hypoxic/hypercapnic respiratory failure #History of coronary artery disease s/p stent placement The patient has extensive past medical history of cardiac disease; heart failure along with CAD and follows Dr. Velazquez, cardiology, outpatient Echo from 05/2024 shows: Mildly dilated LV. Normal wall thickness. Estimated EF 30-35 %. Global LV systolic function is severely decreased. RV not well visualized. [id number]-[id number] MR. Echo 06/03: EF 10-15% Grade III DD akinetic apex with severe global hypokinesis, moderate PAH, MR, dilated cardiomyopathy Blood pressure on admission at this time soft Plan: -Resume patient's home meds when vitals are tolerable #JADIEL on CKD stage IIIb #Prerenal azotemia The patient has a history of CKD stage IIIb and on discharge about 2 weeks ago, GFR was 48 with creatinine of 1.6. On this admission, GFR was 29 with creatinine of 2.9 Patient has had decreased oral intake and has also been on diuretics. Plan: -Encourage increase oral intake -Renally dose all medications -Avoid nephrotoxic medications #History of A-fib The patient has a history of A-fib and is on amiodarone and Eliquis. Currently, patient is not in A-fib. Heart rate is 65. Plan: -EKG -Resume amiodarone -Holding Eliquis and aspiration of surgical intervention. #History of type II DM Patient has a history of type II DM and is on subcutaneous glargine 10 units twice daily as well as metformin 500 mg twice daily. Blood glucose on admission 107. Last A1c done 3 weeks ago-10.2 Plan: -Subcutaneous glargine 20 units twice daily -ISS -Blood glucose check AC -Hypoglycemic protocols in place Health maintenance: Dispo: Med[facility] Diet: Carb consistent low DVT: Eliquis (held for surgery), SC Heparin Prather: None Lines: Peripheral Med Rec: Pending, f/u Code: Full Case was discussed with Dr Estrada PGY-2 and attending physician, Dr Danisha Castro MD PGY-1 Disclaimer: This note was dictated by speech recognition. Minor errors in head sugar reprocess operator may be present due to voice recognition software. Attending Provider Attestation/Addendum I reviewed labs, imaging, EKG, home medications and prior available records. Face to face evaluation was performed by me. I have personally examined the patient and discussed assessment and plan with the IM team. I reviewed the resident note and agree with the plan with exceptions as below. Patient is a 64-year-old male with history of CAD, cardiomyopathy with EF of 10 to 15%, insulin-dependent diabetes mellitus, foot ulcer status post bilateral BKA, who presented with a chief complaint of fall on his right stump area. He was found to have open wounds requiring surgical intervention Injury of right stump: In the setting of fall. Uncontrolled diabetes mellitus with hyperglycemia, insulin-dependent HFrEF EF 10 to 15% CAD status post PCI JADIEL on CKD 3b Status post left BKA Status post right BKA BPH Consulted general surgery. Will plan for OR IV vancomycin/Zosyn Monitor kidney function. Avoid nephrotoxin. Nephrology consulted Hold diuretics
[2024-07-18 16:27] VITALS: BP 107/69; PULSE 68; RESP 17; O2SAT 68
[2024-07-18 16:58] VITALS: PULSE 68; RESP 18; RESP 99
--- NOTE | 2024-07-18 17:26 | PC.NURSE ---
Pt and aware that diet is low carb diet, diabetic. brought pt. dinner, BG after : 148. came back with sweet bread. Pt. and advised on the risks. Pt. upset and states: Its my birthday, You are not taking my sweet bread
[2024-07-18 18:25] VITALS: BMI 21.4
[2024-07-18 18:45] VITALS: BP 92/58; PULSE 67; RESP 17; TEMP 36.2; O2SAT 95
[2024-07-18] MEDS: HYDROcodone/APAP 5/325 TABLET 1 TAB PO (20:15)
[2024-07-18] MEDS: INSULIN GLARGINE (Lantus) 5 UNIT/0.05 ML (PER 5 UNITS) 10 UNIT SC (20:58)
[2024-07-19] VITALS (10 sets, daily range): BP systolic 96–118; BP diastolic 52–58; PULSE 53–89; RESP 16–98; TEMP 36.6; O2SAT 96–99; BMI 21.4
[2024-07-19 05:47] LABS: Basophils # (Auto) 0.1 Thou/mm3 (0.0-0.2); Basophils % (Auto) 1 % (0-2.5); Eosinophils # (Auto) 0.2 Thou/mm3 (0.0-0.5); Eosinophils % (Auto) 2 % (0-10); Immature Granulocytes % (Auto) 1 % (0-0); Immature Granulocytes Auto 0.09 Thou/mm3 (0.00-0.00); Lymphocytes # (Auto) 2.1 Thou/mm3 (1.0-4.8); Lymphocytes % (Auto) 22 % (10-50); Mean Corpuscular HGB Conc 31.2 g/dl (31.0-37.0); Mean Corpuscular Volume 77 fL (80-100); Monocytes # (Auto) 0.7 Thou/mm3 (0.0-0.8); Monocytes % (Auto) 8 % (0-12); Neutrophils # (Auto) 6.1 Thou/mm3 (1.8-7.7); Neutrophils % (Auto) 66 % (37-80); Nucleated Red Blood Cell % 0 /100 WBC (0); Platelet Count 294 Thou/mm3 (140-440); RDW Standard Deviation 57.1 fL (35.1-43.9); Red Blood Count 3.37 Miln/mm3 (4.50-5.90); White Blood Count 9.3 Thou/mm3 (3.8-10.6)
[2024-07-19 05:49] LABS: Hemoglobin 8.1 g/dL (13.5-16.0)
[2024-07-19 06:17] LABS: Alanine Aminotransferase 11 U/L (10-49); Alkaline Phosphatase 67 U/L (46-116); Anion Gap 9 (7-16); Aspartate Amino Transferase < 10 U/L (0-34); BUN/Creatinine Ratio 21 Ratio (12-20); Bilirubin,Total 0.2 mg/dL (0.3-1.2); Blood Urea Nitrogen 62 mg/dL (9-23); Calcium 7.8 mg/dL (8.3-10.6); Calcium (Corrected) 8.6 mg/dL (8.5-10.1); Carbon Dioxide 24.3 mMol/L (20.0-31.0); Cardiac Risk Estimate 3.9 RATIO (4.0-6.7); Chloride 99 mMol/L (98-107); Cholesterol 131 mg/dL (132-200); Creatinine (Component) 2.9 mg/dL (0.6-1.3); Estimated Creatinine Clearance 23.3 mL/min (>60); Globulin 2.9 gm/dL (2.3-3.5); Glucose 235 mg/dL (74-106); HDL Cholesterol 34 mg/dL (40-60); LDL Cholesterol,Calculated 79 mg/dL (0-130); Magnesium 1.7 mg/dL (1.6-2.6); Osmolality,Calculated 290 (275-295); Potassium 4.9 mMol/L (3.4-5.1); Sodium 132 mMol/L (136-145); Total Protein 5.9 gm/dL (5.7-8.2); Triglycerides 92 mg/dL (30-150); eGFR 23 See Note
[2024-07-19] MEDS: INSULIN LISPRO (AdmeLOG) 1 UNIT/0.01 ML UNIT SC ×3 (08:03→17:23)
[2024-07-19] MEDS: GABAPENTIN 300 MG CAPSULE PO (09:33)
[2024-07-19] MEDS: PIPER/TAZO 3.375 GM 3.375 GM/50 ML BAG IV ×2 (09:33→20:31)
[2024-07-19] MEDS: TAMSULOSIN HCL 0.4 MG CAPSULE PO (09:33)
[2024-07-19] MEDS: MIRTAZAPINE 15 MG TABLET PO (09:33)
[2024-07-19] MEDS: INSULIN GLARGINE (Lantus) 5 UNIT/0.05 ML (PER 5 UNITS) 10 UNIT SC ×2 (09:42→20:35)
--- NOTE | 2024-07-19 11:22 | PC.NURSE ---
Dr. Rudolph in to see patient, consent for surgery obtained by
--- NOTE | 2024-07-19 11:25 | PD.SURCONS ---
HPI Consult details Consult date: 07/19/24 Reason for consultation narrative: The patient was seen by me today because of necrosis of the suture line on the right BKA amputation stump. History of present illness: After he had amputation of the right leg I been following him in the office periodically. He has developed a gradual ischemia of the flaps showing black discoloration. Last week he fell down and landed on the stump and developed some contusion. I saw him in the office 3 days ago and advised that he may have to come to the emergency room for further care with antibiotics and possible revision Past Medical History Past Medical History NEUROLOGIC: Positive Neurological Disorders and Peripheral Neuropathy; Negative Cerebrovascular Accident, Transient Ischemic Attacks (TIA), Dementia, Alzheimer's Disease, Parkinson's Disease, Brain Tumor, Meningitis, Seizures, Epilepsy, Multiple Sclerosis, Cerebral Palsy, Amyotrophic Lateral Sclerosis (ALS/Sara Gehrig's), Guillain-Peck Syndrome, Spina Bifida, Paralysis, Eldridge's Palsy, Subdural Hematoma, Migraine, Head Trauma, Spinal Cord Injury or Traumatic Brain Injury CARDIAC: Positive Cardiac Disorders, Myocardial Infarction, Coronary Artery Disease, Hypercholesterolemia, Congestive Heart Failure, Cellulitis, Hypertension and Hypotension; Negative Cardiac Arrhythmia, Atrial Fibrillation, Angina, Heart Murmur, Atherosclerotic Heart Disease, Peripheral Vascular Disease, Aneurysm, Congenital Heart Disease, Valvular Heart Disease, Rheumatic Fever, Cardiomyopathy, Edema, Pericarditis, Deep Vein Thrombosis or Varicose Veins RESPIRATORY: Positive Pneumonia; Negative Chronic Obstructive Pulmonary Disease (COPD), Asthma, Bronchitis, Emphysema, Pulmonary Fibrosis, Cystic Fibrosis, Tuberculosis, Pulmonary Embolism, Pulmonary Edema or Sleep Apnea GASTROINTESTINAL: Negative Gastrointestinal Disorders, Hepatitis, Cirrhosis, Pancreatitis, Celiac Disease, Gall Bladder Disease, Gastrointestinal Bleed, Esophageal Varices, Mclaughlin's Esophagus, Colitis, Ulcerative Colitis, Diverticulitis, Diverticulosis, Ulcer, Colorectal Cancer, Irritable Bowel, Crohn's Disease, Obstructive Bowel, Hiatal Hernia, Hemorrhoids, Gastroesophageal Reflux Disease or Obesity GENITOURINARY: Negative Genitourinary Disorders, Renal Disease, Kidney Stones, Polycystic Kidney Disease, Neurogenic Bladder, Inguinal Hernia, Dialysis, Prostate Cancer or Benign Prostatic Hyperplasia REPRODUCTIVE: Negative Breast Cancer or Testicular Cancer MUSCULOSKELETAL: Positive Musculoskeletal Disorders, Arthritis and Osteomyelitis; Negative Muscular Dystrophy, Myasthenia Gravis, Marfan's Syndrome, Bone Cancer, Rheumatoid Arthritis, Osteoporosis, Degenerative Disk Disease, Gout, Scoliosis, Carpal Tunnel Syndrome, Fibromyalgia, Fractures, Degenerative Joint Disease or Poliovirus ENT: Negative Cataracts, Glaucoma, Blind, Retinal Detachment, Macular Degeneration, Ear Infection, Deafness, Head Trauma or Eye Prosthesis ENDOCRINE: Positive Endocrine Disorders and Diabetes Mellitus Type 2; Negative Diabetes Mellitus Type 1, Hypoglycemia, [place]'s Syndrome, Nicollet's Disease, Hyperthyroidism, Hypothyroidism, Parathyroid Disease, Pituitary Disease, Systemic Lupus Erythematosus, Syndrome of Inappropriate Antidiuretic Hormone (SIADH), Adrenal Disease or Graves' Disease HEMATOLOGIC: Negative Blood Disorders, Anemia, Leukemia, Hemophilia, Thalassemia, Sickle Cell Disease or Clotting Problems PSYCHO/SOCIAL: Negative Psychiatric Problems, Schizophrenia, Recreational Drug Use, Bipolar Disorder, Depression, Anxiety, Behavior Problems, Self-Mutilation, Attention Deficit Disorder, Attention Deficit Hyperactivity Disorder, Post Traumatic Stress Disorder or Eating Disorder OTHER HISTORY: Positive Hospitalization and Chicken Pox; Negative Autoimmune Disease, Down Syndrome, Autism, Developmental Delay, Shingles, Falls, Blood Transfusions, Blood Transfusion Reaction, Anesthesia Reactions, Organ Transplant, Chemotherapy, Radiation Therapy, Hyperbaric Therapy, MRSA, VRSA, Vancomycin-Resistant Enterococci, Human Immunodeficiency Virus (HIV), Measles, Mumps, Rubella ([place] Measles), Pertussis, Clostridium Difficile, Cancer, Breast Cancer, Colorectal Cancer, Lung Cancer, Prostate Cancer or Testicular Cancer Family History FAMILY HISTORY: Positive Family Cardiac Disorders; Negative Family Psychiatric Problems, Family Respiratory Disorders, Family Gastrointestinal Problems, Family Cancer, Family Surgery or Family Anesthesia Reaction Surgical History SURGICAL: Positive Coronary Stent, Cardiac Catheterization and Angiogram; Negative Cardiac Surgery, Open Heart Surgery, Coronary Artery Bypass Graft, Valve Replacement, Vascular Surgery, Pacemaker, Auto Implanted Cardiovert Defib, Carotid Endarterectomy, Endocrine Surgery, Thyroidectomy, Ear Surgery, Tympanostomy Tube, Eye Surgery, Nose Surgery, Oral Surgery, Tonsillectomy, Adenoidectomy, Cochlear Implant, Corneal Transplant, Throat Surgery, Abdominal Surgery, Tracheostomy, Gastric Bypass Surgery, Gastrostomy, Bowel Surgery, Nephrectomy, Transurethral Resection, Joint Replacement, Amputation, Open Reduction Internal Fixation, Arthroscopy, Neurologic Surgery, Brain Shunt, Vasectomy or Organ Transplant Social History SMOKING STATUS: Never smoker SECOND HAND EXPOSURE: No SUBSTANCE USE: does not use Meds Home Medications and Allergies Home Medications ?Medication ?Instructions ?Recorded ?Confirmed ?Type metformin 1,000 mg tablet 1,000 mg PO BID 06/24/20 05/28/24 History aspirin 81 mg tablet,delayed 81 mg PO QDAY 03/23/22 05/28/24 History release gabapentin 300 mg capsule 300 mg PO QDAY 01/01/24 05/28/24 History tamsulosin 0.4 mg capsule (Flomax) 0.4 mg PO DAILY 01/01/24 05/28/24 History Allergies Allergy/AdvReac Type Severity Reaction Status Date / Time No Known Allergies Allergy Verified 05/28/24 05:31 Exam Vital Signs Temp Pulse Resp BP Pulse Ox O2 Del Method O2 Flow Rate 97.8 F 63 18 116/54 L 97 Room Air 3 07/19/24 07:47 07/19/24 11:03 07/19/24 11:03 07/19/24 07:47 07/19/24 07:47 07/19/24 07:47 07/18/24 15:47 Patient's vital signs are stable Routine Extremities Exam Comments: Examination of the amputated right BKA stump showed necrosis over the entire suture line. There is some redness over the posterior flap because of the injury sustained last week Results Results: Laboratory Laboratory Narrative: Laboratory results are within normal limits Assessment & Plan Additional Assessment Additional comments: Impression: Necrosis of the B-K amputation right leg Diabetes mellitus Plan Plan: I advised the patient to undergo revision of this amputation by cutting the skin edges only. Patient does not go through the entire reamputation but only debridement and resuture. This was explained to him and he is agreeable.
--- NOTE | 2024-07-19 12:55 | ESPR_ITS ---
Documentation for date of: 07/19/24 Subjective Subjective Interval history: Patient seen at bedside. No acute overnight events. Patient is here for surgical wound revision. He was on Eliquis for A-fib that is currently being held. Pending procedure to be done tomorrow by surgeon Dr. Rudolph. Blood glucose this morning elevated, optimized management. Otherwise he has no complaints and is stable. 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 Eyes open, symmetrical, & clear CARDIO: No chest pain on palpation. Heart RRR, no obvious murmurs PULM: No noted coughing/dyspnea. Lungs CTA B/L GI: Abdomen soft, nondistended, no pain on palpation. BSx4 URO/SENIOR ANDROID DEVELOPER:: No further abnormalities noted. SKIN/MSK/EXT: Bilateral BKA. Right knee/surgical site wrapped in clean and dry bandage Objective Labs 07/20/24 04:57 07/20/24 04:57 Labs: Laboratory Results - last 24 hr 07/18/24 07/19/24 12:59 04:47 WBC 9.3 RBC 3.37 L Hgb 8.1 L Hct 26.0 L MCV 77 L MCH 24.0 L MCHC 31.2 RDW Std Deviation 57.1 H Plt Count 294 D Neut % (Auto) 66 Lymph % (Auto) 22 Wolfe % (Auto) 8 Eos % (Auto) 2 Baso % (Auto) 1 Neut # (Auto) 6.1 Lymph # (Auto) 2.1 Wolfe # (Auto) 0.7 Eos # (Auto) 0.2 Baso # (Auto) 0.1 Immature Gran # (Auto) 0.09 H Absolute Nucleated RBC 0.00 Immature Gran % 1 H Nucleated RBC % 0 Sodium 132 L Potassium 4.9 Chloride 99 Carbon Dioxide 24.3 Anion Gap 9 BUN 62 H Creatinine 2.9 H Estim Creat Clear Calc 23.3 L eGFR 23 L BUN/Creatinine Ratio 21 H Glucose 235 H D Calculated Osmolality 290 Calcium 7.8 L Corrected Calcium 8.6 Phosphorus 4.0 Magnesium 1.7 Total Bilirubin 0.2 L AST < 10 ALT 11 Alkaline Phosphatase 67 Total Protein 5.9 Albumin 3.0 L Globulin 2.9 Albumin/Globulin Ratio 1.0 L Triglycerides 92 Cholesterol 131 L LDL Cholesterol, Calc 79 HDL Cholesterol 34 L Cholesterol/HDL Ratio 3.9 L Blood Type AB Positive Antibody Screen NEGATIVE Blood Bank Wristband ID Yes Quality Measures Quality Measures none Advance care planning discussed with:: patient Assessment & Plan Assessment Current Active Medications: Generic Name Dose Route Start Last Admin Trade Name Freq PRN Reason Stop Dose Admin Acetaminophen 650 mg 07/18/24 11:47 Acetaminophen 325 Mg Tablet PO 08/17/24 11:46 Q6H PRN Pain 1-3 or Fever >100.3 Hydrocodone Bitart/Acetaminophen 1 tab 07/18/24 11:47 07/18/24 20:15 Hydrocodone/Apap 5/325 Tablet PO 07/23/24 11:46 1 tab Q4HR PRN Administration PAIN SCALE 4-6 (Moderate Amiodarone HCl 200 mg 07/18/24 21:00 07/19/24 09:41 Amiodarone Hcl 200 Mg Tablet PO 08/17/24 20:59 Not Given BID KENNY Bisacodyl 10 mg 07/18/24 12:02 Bisacodyl 10 Mg Supp TN 08/17/24 12:01 QDAY PRN CONSTIPATION Protocol Dextrose 25 ml 07/18/24 11:53 Dextrose 50%-Water Inj 50 Ml Syringe IV 08/17/24 11:52 Q15MIN PRN BG 50-70 responsive npo pt Dextrose 50 ml 07/18/24 11:53 Dextrose 50%-Water Inj 50 Ml Syringe IV 08/17/24 11:52 Q15MIN PRN BG <50 OR BG <70 & pt unresponsive Gabapentin 300 mg 07/19/24 09:00 07/19/24 09:33 Gabapentin 300 Mg Capsule PO 08/18/24 08:59 300 mg QDAY KENNY Administration Glucagon 1 mg 07/18/24 11:53 Glucagon Inj 1 Mg Vial IM Q15MIN PRN BG <70, and no IV access Heparin Sodium (Porcine) 5,000 unit 07/18/24 21:00 07/19/24 09:42 Heparin Sod Inj 5000 Unit/Ml Vial SC 08/01/24 20:59 Not Given Q12HR KENNY Piperacillin/Tazobactam/Dextrose 3.375 gm in 50 mls @ 12.5 mls/hr 07/18/24 21:00 07/19/24 09:33 Zosyn IV 07/25/24 20:59 12.5 mls/hr Q12HR KENNY Administration Protocol Insulin Glargine 10 unit 07/18/24 21:00 07/19/24 09:42 Insulin Glargine (Lantus) 5 Unit/0.05 Ml (Per 5 Units) SC 08/17/24 20:59 10 unit BID KENNY Administration Insulin Human Lispro 0 unit 07/18/24 17:00 07/19/24 11:47 Insulin Lispro (Admelog) 1 Unit/0.01 Ml Unit SC 08/17/24 16:59 4 unit AC KENNY Administration Protocol Mirtazapine 15 mg 07/19/24 09:00 07/19/24 09:33 Mirtazapine 15 Mg Tablet PO 08/18/24 08:59 15 mg QDAY KENNY Administration Morphine Sulfate 2 mg 07/18/24 11:53 Morphine Sulf Inj 10 Mg/Ml Vial IVP 07/23/24 11:52 Q4HR PRN PAIN SCALE 7-10 (Severe Ondansetron HCl 4 mg 07/18/24 11:47 Ondansetron Inj 2 Mg/Ml Inj 2 Ml IV 08/17/24 11:46 Q6H PRN NAUSEA OR VOMITING Protocol Tamsulosin HCl 0.4 mg 07/19/24 09:00 07/19/24 09:33 Tamsulosin Hcl 0.4 Mg Capsule PO 08/18/24 08:59 0.4 mg QDAY KENNY Administration Plan Summary: Patient is a 64-year-old male with a past medical history of CAD status post stents, hypertension, hyperlipidemia, CKD stage IIIb, type II DM, HFrEF 10- 15%, bilateral BKA's, A-fib presented to the ED on 07/18/2024 with complaints of progressive down the surgical site. #Surgical wound necrosis #Leukocytosis The patient presented to Dr. Rudolph 2 days ago for follow-up after his right BKA who inspected the wound and did notice some changes. He was recommended by Dr. Rudolph to come to the ED for further evaluation. Otherwise, the patient has been stable has had no fevers or no pain he did fall a couple days prior to his visit to the surgeons office on his right knee and it was said to have been red at the time, he complained of some pain but no bleeding. Surgeon Dr. Rudolph was consulted and recommended to admit the patient for possible debridement. Plan: -Continue IV Zosyn -Blood and wound cultures pending -Continue monitoring CBC -Holding Eliquis for surgical intervention # HFrEF (EF 10-15%) #Acute hypoxic/hypercapnic respiratory failure #History of coronary artery disease s/p stent placement The patient has extensive past medical history of cardiac disease; heart failure along with CAD and follows Dr. Velazquez, cardiology, outpatient Echo from 05/2024 shows: Mildly dilated LV. Normal wall thickness. Estimated EF 30-35 %. Global LV systolic function is severely decreased. RV not well visualized. [id number] MR. Echo 06/03: EF 10-15% Grade III DD akinetic apex with severe global hypokinesis, moderate PAH, MR, dilated cardiomyopathy Blood pressure on admission at this time soft Plan: -Resume patient's home meds when vitals are tolerable #JADIEL on CKD stage IIIb #Prerenal azotemia The patient has a history of CKD stage IIIb and on discharge about 2 weeks ago, GFR was 48 with creatinine of 1.6. On this admission, GFR was 29 with creatinine of 2.9 Patient has had decreased oral intake and has also been on diuretics. 07/19/2024- Creatinine today still at 2.9 Plan: -Encourage increase oral intake -Renally dose all medications -Avoid nephrotoxic medications #History of A-fib The patient has a history of A-fib and is on amiodarone and Eliquis. Currently, patient is not in A-fib. Heart rate is 65. Plan: -EKG -Resume amiodarone -Holding Eliquis and aspiration of surgical intervention. #History of type II DM Patient has a history of type II DM and is on subcutaneous glargine 10 units twice daily as well as metformin 500 mg twice daily. Blood glucose on admission 107. Last A1c done 3 weeks ago-10.2 Plan: -Subcutaneous glargine 10 units twice daily -ISS -Blood glucose check AC -Hypoglycemic protocols in place Health maintenance: Dispo: MedTele Diet: Carb consistent low DVT: Eliquis (held for surgery), SC Heparin (Last dose tonight before surgery) Prather: None Lines: Peripheral Med Rec: Pending, f/u Code: Full Case was discussed with Dr Estrada PGY-2 and attending physician, Dr Danisha Castro MD PGY-1 Disclaimer: This note was dictated by speech recognition. Minor errors in marine drafter may be present due to voice recognition software. Attending Provider Attestation/Addendum I reviewed labs, imaging, EKG, home medications and prior available records. Face to face evaluation was performed by me. I have personally examined the patient and discussed assessment and plan with the IM team. I reviewed the resident note and agree with the plan with exceptions as below. Patient is a 64-year-old male with history of CAD, cardiomyopathy with EF of 10 to 15%, insulin-dependent diabetes mellitus, foot ulcer status post bilateral BKA, who presented with a chief complaint of fall on his right stump area. He was found to have open wounds requiring surgical intervention Injury of right stump: In the setting of fall. Uncontrolled diabetes mellitus with hyperglycemia, insulin-dependent HFrEF EF 10 to 15% CAD status post PCI JADIEL on CKD 3b Status post left BKA Status post right BKA BPH Consulted general surgery. Will plan for OR. Held Eliquis. N.p.o. after midnight IV Zosyn. Follow-up MRSA Continue insulin Lantus plus sliding scale insulin. Monitor fingersticks Monitor kidney function. Avoid nephrotoxin. Nephrology consulted Hold diuretics
[2024-07-20] VITALS (14 sets, daily range): BP systolic 77–120; BP diastolic 47–65; PULSE 53–68; RESP 12–96; TEMP 36–36.5; O2SAT 95–100
[2024-07-20 05:39] LABS: Basophils % (Auto) 1 % (0-2.5); Eosinophils # (Auto) 0.3 Thou/mm3 (0.0-0.5); Eosinophils % (Auto) 3 % (0-10); Monocytes # (Auto) 0.8 Thou/mm3 (0.0-0.8); Neutrophils # (Auto) 5.4 Thou/mm3 (1.8-7.7); Nucleated Red Blood Cell % 0 /100 WBC (0)
[2024-07-20 05:41] LABS: Hematocrit 25.4 % (41.0-53.0); Immature Granulocytes % (Auto) 1 % (0-0); Immature Granulocytes Auto 0.06 Thou/mm3 (0.00-0.00); Lymphocytes % (Auto) 23 % (10-50); Mean Corpuscular HGB Conc 31.1 g/dl (31.0-37.0); Mean Corpuscular Hemoglobin 24.1 pg (25.0-35.0); Mean Corpuscular Volume 77 fL (80-100); Monocytes % (Auto) 10 % (0-12); Neutrophils % (Auto) 63 % (37-80); Platelet Count 265 Thou/mm3 (140-440); RDW Standard Deviation 58.6 fL (35.1-43.9); Red Blood Count 3.28 Miln/mm3 (4.50-5.90); White Blood Count 8.6 Thou/mm3 (3.8-10.6)
[2024-07-20 05:46] LABS: Hemoglobin 7.9 g/dL (13.5-16.0)
[2024-07-20] MEDS: DEXTROSE 50%-WATER INJ 50 ML SYRINGE 25 ML IV (05:50)
[2024-07-20 06:13] LABS: Alanine Aminotransferase 16 U/L (10-49); Alkaline Phosphatase 54 U/L (46-116); Anion Gap 8 (7-16); Aspartate Amino Transferase 19 U/L (0-34); BUN/Creatinine Ratio 20 Ratio (12-20); Bilirubin,Total < 0.2 mg/dL (0.3-1.2); Blood Urea Nitrogen 55 mg/dL (9-23); Calcium 7.9 mg/dL (8.3-10.6); Calcium (Corrected) 8.7 mg/dL (8.5-10.1); Carbon Dioxide 24.7 mMol/L (20.0-31.0); Chloride 104 mMol/L (98-107); Creatinine (Component) 2.7 mg/dL (0.6-1.3); Globulin 2.9 gm/dL (2.3-3.5); Glucose 63 mg/dL (74-106); Magnesium 1.6 mg/dL (1.6-2.6); Osmolality,Calculated 286 (275-295); Phosphorous 4.4 mg/dL (2.4-5.1); Potassium 4.9 mMol/L (3.4-5.1); Sodium 137 mMol/L (136-145); Total Protein 5.9 gm/dL (5.7-8.2); eGFR 25 See Note
[2024-07-20] MEDS: PIPER/TAZO 3.375 GM 3.375 GM/50 ML BAG IV ×2 (08:03→20:39)
--- NOTE | 2024-07-20 11:32 | SUR.PHASEI ---
Pt. arrived to recovery via gurney, VSS, bp 77/47, IVF wide open, no s/s of hypotension, eyes open, AAOx3, lung sounds clear, equal expansion lizeth., pt. receiving 4 liters 02 via oxymask, dressing to right lower leg sutures, adaptic, fluffs, and kerlix roll in place, no active redness or bleeding noted, no pain or nausea at this time, blood glucose assessed on arrival 54, provided orange juice, will reassess blood glucose in 15 mins. Report received from Salty NELSON and Dr. Celaya.
--- NOTE | 2024-07-20 11:35 | PD.SUROPNT ---
Date of Procedure 07/20/24 Pre Op Diagnosis Necrosis of the flaps from the BKA amputation right leg Post Op Diagnosis Same Procedure Revision of the amputation over the right leg below the knee Findings Patient was found to have a necrosis of the skin at the edges but the flap was mostly healthy. Therefore revision of the amputation was planned. Procedure Description After the patient was brought to the operating room regional block was given by Dr. Celaya. Then the anterior BKA amputated stump was washed with ChloraPrep solution and draped in a sterile manner. Timeout was performed.. Then using a 10 and 15 blade knife I excised the necrotic tissue from the edges of the skin flaps. The bone was found to be slightly protruding when we try to reapproximate the skin flaps. Therefore I divided the wound for about couple of centimeters and beveled it nicely. Using rasp I smoothed it to prevent any bulging in the skin. Then the fascial approximation was performed with 2-0 Vicryl all around the wound. The posterior flap was nicely attached to the fascia with coverage of the muscles over the bone. Then the skin was closed with interrupted 4-0 nylon sutures. Dressing was applied with Adaptic and fluff and Kerlix roll. Patient tolerated procedure well and left operating room in stable condition. Anesthesia regional (Femoral block) Pathology / specimen None Estimated Blood Loss 20 Surgeon Jean Pierre eNlson MD Surgical Staff Operation Date: 07/20/24 10:00 Case Staff Anesthesiologist: Genaro Celaya RN First Assistant: Marj Alanis
--- NOTE | 2024-07-20 11:47 | SUR.PHASEI ---
Provided pt. with ryne riojas and raz pearson, tolerating well.
--- NOTE | 2024-07-20 11:59 | SUR.PHASEI ---
Called and gave report on pt. s/p surgery to Kaycee NELSON on M/S unit.
--- NOTE | 2024-07-20 12:05 | SUR.PHASEI ---
Pt. transferred to room 376 via TIMUR amador, no c/o pain or nausea at this time, dressing to right lower leg CDI, blood glucose now 80, Kaycee NELSON assumed care of pt.
--- NOTE | 2024-07-20 13:30 | PD.RESPRO ---
Documentation for date of: 07/20/24 Subjective Subjective Interval history: Patient seen at bedside. No acute overnight events. Patient was n.p.o. after midnight, scheduled for procedure to be done by Dr. Rudolph today. Blood glucose this morning-87. Lantus held. Otherwise, patient has no complaints and is anxious for surgery to be done. Follow-up after procedures been done. 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 Eyes open, symmetrical, & clear CARDIO: No chest pain on palpation. Heart RRR, no obvious murmurs PULM: No noted coughing/dyspnea. Lungs CTA B/L GI: Abdomen soft, nondistended, no pain on palpation. BSx4 URO/ADAPTIVE PHYSICAL EDUCATOR:: No further abnormalities noted. SKIN/MSK/EXT: Bilateral BKA. Right knee/surgical site wrapped in clean and dry bandage Objective Labs 07/21/24 05:11 07/21/24 05:11 Labs: Laboratory Results - last 24 hr 07/20/24 04:57 WBC 8.6 RBC 3.28 L Hgb 7.9 L Hct 25.4 L MCV 77 L MCH 24.1 L MCHC 31.1 RDW Std Deviation 58.6 H Plt Count 265 Neut % (Auto) 63 Lymph % (Auto) 23 Emery % (Auto) 10 Eos % (Auto) 3 Baso % (Auto) 1 Neut # (Auto) 5.4 Lymph # (Auto) 2.0 Emery # (Auto) 0.8 Eos # (Auto) 0.3 Baso # (Auto) 0.0 Immature Gran # (Auto) 0.06 H Absolute Nucleated RBC 0.00 Immature Gran % 1 H Nucleated RBC % 0 Sodium 137 Potassium 4.9 Chloride 104 Carbon Dioxide 24.7 Anion Gap 8 BUN 55 H Creatinine 2.7 H Estim Creat Clear Calc 25.0 L eGFR 25 L BUN/Creatinine Ratio 20 Glucose 63 L D Calculated Osmolality 286 Calcium 7.9 L Corrected Calcium 8.7 Phosphorus 4.4 Magnesium 1.6 Total Bilirubin < 0.2 L AST 19 ALT 16 Alkaline Phosphatase 54 Total Protein 5.9 Albumin 3.0 L Globulin 2.9 Albumin/Globulin Ratio 1.0 L Quality Measures Quality Measures none Advance care planning discussed with:: patient Assessment & Plan Assessment Current Active Medications: Generic Name Dose Route Start Last Admin Trade Name Freq PRN Reason Stop Dose Admin Acetaminophen 650 mg 07/18/24 11:47 Acetaminophen 325 Mg Tablet PO 08/17/24 11:46 Q6H PRN Pain 1-3 or Fever >100.3 Hydrocodone Bitart/Acetaminophen 1 tab 07/18/24 11:47 07/18/24 20:15 Hydrocodone/Apap 5/325 Tablet PO 07/23/24 11:46 1 tab Q4HR PRN Administration PAIN SCALE 4-6 (Moderate Amiodarone HCl 200 mg 07/18/24 21:00 07/20/24 08:02 Amiodarone Hcl 200 Mg Tablet PO 08/17/24 20:59 Not Given BID KENNY Bisacodyl 10 mg 07/18/24 12:02 Bisacodyl 10 Mg Supp NE 08/17/24 12:01 QDAY PRN CONSTIPATION Protocol Dextrose 25 ml 07/18/24 11:53 07/20/24 05:50 Dextrose 50%-Water Inj 50 Ml Syringe IV 08/17/24 11:52 25 ml Q15MIN PRN Administration BG 50-70 responsive npo pt Dextrose 50 ml 07/18/24 11:53 Dextrose 50%-Water Inj 50 Ml Syringe IV 08/17/24 11:52 Q15MIN PRN BG <50 OR BG <70 & pt unresponsive Gabapentin 300 mg 07/19/24 09:00 07/20/24 08:02 Gabapentin 300 Mg Capsule PO 08/18/24 08:59 Not Given QDAY KENNY Glucagon 1 mg 07/18/24 11:53 Glucagon Inj 1 Mg Vial IM Q15MIN PRN BG <70, and no IV access Piperacillin/Tazobactam/Dextrose 3.375 gm in 50 mls @ 12.5 mls/hr 07/18/24 21:00 07/20/24 08:03 Zosyn IV 07/25/24 20:59 12.5 mls/hr Q12HR KENNY Administration Protocol Insulin Glargine 10 unit 07/18/24 21:00 07/20/24 08:03 Insulin Glargine (Lantus) 5 Unit/0.05 Ml (Per 5 Units) SC 08/17/24 20:59 Not Given BID KENNY Insulin Human Lispro 0 unit 07/20/24 05:30 07/20/24 12:21 Insulin Lispro (Admelog) 1 Unit/0.01 Ml Unit SC 08/19/24 05:29 Not Given Q6H [facility] Protocol Mirtazapine 15 mg 07/19/24 09:00 07/20/24 08:03 Mirtazapine 15 Mg Tablet PO 08/18/24 08:59 Not Given QDAY KENNY Morphine Sulfate 2 mg 07/18/24 11:53 Morphine Sulf Inj 10 Mg/Ml Vial IVP 07/23/24 11:52 Q4HR PRN PAIN SCALE 7-10 (Severe Ondansetron HCl 4 mg 07/18/24 11:47 Ondansetron Inj 2 Mg/Ml Inj 2 Ml IV 08/17/24 11:46 Q6H PRN NAUSEA OR VOMITING Protocol Tamsulosin HCl 0.4 mg 07/19/24 09:00 07/20/24 08:04 Tamsulosin Hcl 0.4 Mg Capsule PO 08/18/24 08:59 Not Given QDAY [facility] Plan Summary: Patient is a 64-year-old male with a past medical history of CAD status post stents, hypertension, hyperlipidemia, CKD stage IIIb, type II DM, HFrEF 10-15%, bilateral BKA's, A-fib presented to the ED on 07/18/2024 with complaints of progressive down the surgical site. #Surgical wound necrosis s/p stump revision #Leukocytosis-resolved The patient presented to Dr. Rudolph 2 days ago for follow-up after his right BKA who inspected the wound and did notice some changes. He was recommended by Dr. Ruodlph to come to the ED for further evaluation. Otherwise, the patient has been stable has had no fevers or no pain he did fall a couple days prior to his visit to the surgeons office on his right knee and it was said to have been red at the time, he complained of some pain but no bleeding. Surgeon Dr. Rudolph was consulted and recommended to admit the patient for possible debridement. 07/20/2024- Scheduled for surgical site revision today. Cultures negative Had debridement of necrotized edges. Stable post op Plan: -DC Zosyn -Commence IV Cefazolin -Surgery consulted, appreciate recommendations # History of HFrEF (EF 10-15%) #History of coronary artery disease s/p stent placement The patient has extensive past medical history of cardiac disease; heart failure along with CAD and follows Dr. Velazquez, cardiology, outpatient Echo from 05/2024 shows: Mildly dilated LV. Normal wall thickness. Estimated EF 30-35 %. Global LV systolic function is severely decreased. RV not well visualized. [id number] MR. Echo 06/03: EF 10-15% Grade III DD akinetic apex with severe global hypokinesis, moderate PAH, MR, dilated cardiomyopathy Blood pressure on admission at this time soft Plan: -Resume patient's home meds when vitals are tolerable #JADIEL on CKD stage IIIb #Prerenal azotemia The patient has a history of CKD stage IIIb and on discharge about 2 weeks ago, GFR was 48 with creatinine of 1.6. On this admission, GFR was 29 with creatinine of 2.9 Patient has had decreased oral intake and has also been on diuretics. 07/20/2024- Creatinine today slightly improved, now at 2.7 Plan: -Encourage increase oral intake -Renally dose all medications -Avoid nephrotoxic medications #History of A-fib The patient has a history of A-fib and is on amiodarone and Eliquis. Currently, patient is not in A-fib. Heart rate is 65. Plan: -EKG -Resume amiodarone -Holding Eliquis and aspiration of surgical intervention. #History of type II DM Patient has a history of type II DM and is on subcutaneous glargine 10 units twice daily as well as metformin 500 mg twice daily. Blood glucose on admission 107. Last A1c done 3 weeks ago-10.2 Plan: -Subcutaneous glargine 10 units twice daily -ISS -Blood glucose check AC -Hypoglycemic protocols in place Health maintenance: Dispo: MedTele Diet: Carb consistent low DVT: Eliquis (held for surgery) Prather: None Lines: Peripheral Code: Full Case was discussed with Dr Landrum PGY-2 and attending physician, Dr Danisha Castro MD PGY-1 Disclaimer: This note was dictated by speech recognition. Minor errors in bar catcher may be present due to voice recognition software. Attending Provider Attestation/Addendum I reviewed labs, imaging, EKG, home medications and prior available records. Face to face evaluation was performed by me. I have personally examined the patient and discussed assessment and plan with the IM team. I reviewed the resident note and agree with the plan with exceptions as below. Patient is a 64-year-old male with history of CAD, cardiomyopathy with EF of 10 to 15%, insulin-dependent diabetes mellitus, foot ulcer status post bilateral BKA, who presented with a chief complaint of fall on his right stump area. He was found to have open wounds requiring surgical intervention Injury of right stump: In the setting of fall. Uncontrolled diabetes mellitus with hyperglycemia, insulin-dependent HFrEF EF 10 to 15% CAD status post PCI JADIEL on CKD 3b Status post left BKA Status post right BKA BPH Consulted general surgery. Status post revision of below the knee amputation. Management of pain as needed IV Zosyn. Follow-up MRSA: Negative Continue insulin Lantus plus sliding scale insulin. Monitor fingersticks Monitor kidney function. Avoid nephrotoxin. Nephrology consulted Hold diuretics
[2024-07-20] MEDS: INSULIN LISPRO (AdmeLOG) 1 UNIT/0.01 ML UNIT SC ×2 (17:12→20:39)
[2024-07-20] MEDS: INSULIN GLARGINE (Lantus) 5 UNIT/0.05 ML (PER 5 UNITS) 10 UNIT SC (22:03)
[2024-07-20 22:13] LABS: Glucose 593 mg/dL (74-106)
[2024-07-20] MEDS: INSULIN LISPRO (AdmeLOG) 1 UNIT/0.01 ML UNIT 6 UNIT SC (23:16)
[2024-07-21] VITALS (10 sets, daily range): BP systolic 95–130; BP diastolic 53–85; PULSE 52–62; RESP 13–94; TEMP 36.1–36.5; O2SAT 96–99
[2024-07-21 05:40] LABS: Basophils % (Auto) 0 % (0-2.5); Eosinophils % (Auto) 0 % (0-10); Hematocrit 26.1 % (41.0-53.0); Immature Granulocytes % (Auto) 2 % (0-0); Immature Granulocytes Auto 0.14 Thou/mm3 (0.00-0.00); Lymphocytes # (Auto) 0.9 Thou/mm3 (1.0-4.8); Lymphocytes % (Auto) 12 % (10-50); Mean Corpuscular Volume 77 fL (80-100); Monocytes # (Auto) 0.2 Thou/mm3 (0.0-0.8); Monocytes % (Auto) 3 % (0-12); Neutrophils # (Auto) 6.3 Thou/mm3 (1.8-7.7); Neutrophils % (Auto) 84 % (37-80); Nucleated Red Blood Cell % 0 /100 WBC (0); Platelet Count 253 Thou/mm3 (140-440); RDW Standard Deviation 57.2 fL (35.1-43.9); Red Blood Count 3.38 Miln/mm3 (4.50-5.90); White Blood Count 7.6 Thou/mm3 (3.8-10.6)
[2024-07-21 05:45] LABS: Hemoglobin 8.1 g/dL (13.5-16.0)
[2024-07-21 07:15] LABS: Alanine Aminotransferase 20 U/L (10-49); Albumin, Serum 3.1 gm/dL (3.4-4.8); Alkaline Phosphatase 55 U/L (46-116); Anion Gap 10 (7-16); Aspartate Amino Transferase 12 U/L (0-34); BUN/Creatinine Ratio 21 Ratio (12-20); Bilirubin,Total 0.2 mg/dL (0.3-1.2); Blood Urea Nitrogen 59 mg/dL (9-23); Calcium 7.9 mg/dL (8.3-10.6); Calcium (Corrected) 8.6 mg/dL (8.5-10.1); Carbon Dioxide 21.4 mMol/L (20.0-31.0); Chloride 100 mMol/L (98-107); Creatinine (Component) 2.8 mg/dL (0.6-1.3); Estimated Creatinine Clearance 24.1 mL/min (>60); Glucose 323 mg/dL (74-106); Magnesium 1.8 mg/dL (1.6-2.6); Osmolality,Calculated 291 (275-295); Phosphorous 3.7 mg/dL (2.4-5.1); Potassium 4.9 mMol/L (3.4-5.1); Sodium 131 mMol/L (136-145); Total Protein 6.1 gm/dL (5.7-8.2); eGFR 24 See Note
[2024-07-21] MEDS: INSULIN LISPRO (AdmeLOG) 1 UNIT/0.01 ML UNIT SC ×4 (07:51→22:04)
[2024-07-21] MEDS: FERROUS SULF 325 MG TABLET PO (08:06)
[2024-07-21] MEDS: AMIODARONE HCL 200 MG TABLET PO ×2 (08:06→21:58)
[2024-07-21] MEDS: GABAPENTIN 300 MG CAPSULE PO (08:06)
[2024-07-21] MEDS: VIT B12/Vit C/FA (Nephrovite) TABLET 1 TAB PO (08:06)
[2024-07-21] MEDS: TAMSULOSIN HCL 0.4 MG CAPSULE PO (08:06)
[2024-07-21] MEDS: CYANOCOBALAMIN INJ 1,000 mCg/ML VIAL 1000 MCG IM (08:06)
[2024-07-21] MEDS: MIRTAZAPINE 15 MG TABLET PO (08:06)
[2024-07-21] MEDS: ceFAZolin/D5W 1 GM IVPB 1 GM/50 ML BAG IV (08:08)
[2024-07-21] MEDS: INSULIN GLARGINE (Lantus) 5 UNIT/0.05 ML (PER 5 UNITS) 10 UNIT SC ×2 (08:08→22:07)
[2024-07-21 09:03] LABS: Total Iron Binding Capacity 204 mcg/dL (250-425)
[2024-07-21 09:14] LABS: Iron 38 mcg/dL (65-175); Percent Iron Saturation 18 % (20-55); Unsaturated Iron Binding 166 (225-295)
--- NOTE | 2024-07-21 09:45 | PC.SS ---
SS spoke to Tata at [facility] in regards to pt DC today, updated clinicals requested and sent via [facility]. Tata stated they are ready for his return. Pending DC orders to set up transport.
--- NOTE | 2024-07-21 10:18 | PC.SS ---
Venkat Galdamez is a 64-year-old male admitted to [facility] for Wound Revision. SS conducted bedside contact with the patient to complete initial assessment and to discuss discharge planning.? Patient confirmed demographic information. Patient identifies his Shreya Galdamez [phone] as his surrogate decision maker. Patient resides at home with his family, but is currently staying at [facility] has been for a few weeks. Pts PCP is Dr. García Le. Pt will return to [facility] upon DC. No further intervention required at this time, licensed master social worker would be available to address any further concerns. DC Plan: [facility] Contact: Shreya Galdamez [phone] PCP: Mimi
[2024-07-21] MEDS: cephALEXin 250 MG CAPSULE 500 MG PO ×2 (13:49→21:55)
--- NOTE | 2024-07-21 14:19 | ESDS_ITS ---
Planned Discharge Date 07/21/24 DS: Providers Provider Date of admission: 07/18/24 11:47 Primary care physician: Jalil Le MD Admitting Provider: Tristan Raman MD Attending Provider on Admission: Tristan Raman MD Consults: 07/18/24 10:46 Consult to General Surgery Stat Comment: Consulting Provider: Jean Pierre Nelson 07/18/24 18:36 [facility] Referral - Transportation Routine Comment: Positive screening for transportation needs. 07/19/24 05:19 Referral Registered Dietitian Routine Comment: Referral Wound Care Routine Comment: Attending Provider on DC: Tristan Raman MD Discharging Provider: Alireza Landrum MD DS: Diagnosis Problem List Completed Was Problem List Reviewed/Reconciled?: Yes Hospital Course Hospital Course Hospital course: Hospital Course: Patient is a 64-year-old male with a past medical history of CAD status post stents, hypertension, hyperlipidemia, CKD stage IIIb, type II DM, HFrEF 10-15%, bilateral BKA's, A-fib presented to the ED on 07/18/2024 with complaints of progressive pain at the the surgical site. Patient was found to have necrosis of the RT stump. He is s/p excision and revision of the amputation stump by general surgery Dr Nelson. Patient is being discharged on insulin degludec for better blood sugar control, diabetes counseling provided; and on Keflex for 5 days to cover for infections. For consideration, he will benefit from freestyle alfredo or other CGM devices. Problems on this admission: - Necrosis of the flaps from the BKA amputation right leg - s/p Surgical wound necrosis s/p stump revision - Type II DM, on insulin - History of A-fib - History of HFrEF (EF 10-15%) - History of coronary artery disease s/p stent placement - JADIEL on CKD stage IIIb - Prerenal azotemia Procedures: S/p Revision of the amputation over the right leg below the knee Discharge instructions: - Follow up with PCP after discharge - Take Keflex 500mg three times a day for 5 days to complete antibiotic course. - Insulin Glargine changed to Degludec qPM for optimization - Can take famotidine 20mg up to twice a day for acid reflux. Stop pantoprazole, high risk of Cdiff infection with recurrent antibiotic use. - Mirtazipine increased to 30mg daily until follow up with PCP - Watch out for bleeding with Eliquis, monitor closely and call your surgeon Dr Nelson for follow up - Continue all other home medications as prescribed - Return to ED if symptoms worsen We are grateful to be able to participate in Mr Galdamez's care. We wish him the best. 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 Eyes open, symmetrical, & clear CARDIO: No chest pain on palpation. Heart RRR, no obvious murmurs PULM: No noted coughing/dyspnea. Lungs CTA B/L GI: Abdomen soft, nondistended, no pain on palpation. 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 SKIN/MSK/EXT: Bilateral BKA. Right knee/surgical site wrapped in clean and dry bandage Discharge Plan Plan Patient Disposition: Xfer Skilled Nsg Fac (SNF) Disposition Comment: [place] Patient condition on transfer: Stable Care Plan Goals: - Follow up with PCP after discharge - Take Keflex 500mg three times a day for 5 days to complete antibiotic course. - Insulin Glargine changed to Degludec 20 units qPM for optimization - Can take famotidine 20mg up to twice a day for acid reflux. Stop pantoprazole, high risk of C.diff infection with recurrent antibiotic use. - Mirtazipine increased to 30mg daily until follow up with PCP - Watch out for bleeding with Eliquis, monitor closely and call your surgeon Dr Nelson for follow up - Continue all other home medications as prescribed, especially iron tablets every other day - Return to ED if symptoms worsen Keep dressing to right leg clean dry and intact. May reinforce but do not change. Dr Ronni Nelson will change the dressing in his office on 07/24/24 at 3:00 PM. Prescriptions/Referrals Prescriptions/Med Rec: New famotidine 20 mg tablet 20 mg PO BID PRN (Reason: acid reflux) Qty: 60 0RF cephalexin 500 mg capsule 500 mg PO TID 5 Days Qty: 15 0RF insulin degludec 200 unit/mL (3 mL) insulin pen 20 unit subcut QPM 30 Days Qty: 3 0RF Continued metformin 1,000 mg tablet 500 mg PO BID aspirin 81 mg Tablet,Delayed Release (Dr/Ec) 81 mg PO QDAY gabapentin 300 mg Capsule 300 mg PO QDAY tamsulosin [Flomax] 0.4 mg Capsule 0.4 mg PO DAILY amiodarone 200 mg tablet 200 mg PO BID Patient Comments: TAKE 1 TABLET BY MOUTH TWICE A DAY FOR 30 DAYS bumetanide 1 mg tablet 2 mg PO QDAY Eliquis 2.5 mg tablet 2.5 mg PO BID ferrous sulfate [FeroSul] 325 mg (65 mg iron) tablet 325 mg PO Q OTHER DAY metoprolol succinate 25 mg tablet extended release 24 hr 12.5 mg PO DAILY Patient Comments: TAKE HALF TABLET ORALLY DAILY FOR HTN HOLD FOR SBP <100 OR HR <60 hydrocodone-acetaminophen 5-325 mg tablet 1 tab PO Q6H PRN (Reason: pain) Patient Comments: PLEASE SEE ATTACHED FOR DETAILED DIRECTIONS ascorbic acid (vitamin C) [Vitamin C] 500 mg tablet 500 mg PO BID multivitamin [Daily Multi-Vitamin] Tablet 1 tab PO QDAY Changed mirtazapine 15 mg tablet 30 mg PO QDAY Qty: 60 0RF Discontinued sulfamethoxazole-trimethoprim 800-160 mg tablet 1 tab PO Q12H Patient Comments: TAKE 1 TABLET BY MOUTH EVERY 12 HOURS pantoprazole 40 mg tablet,delayed release (DR/EC) 40 mg PO QDAY Patient Comments: TAKE 1 TABLET BY MOUTH EVERY DAY FOR 30 DAYS insulin glargine [Lantus U-100 Insulin] 100 unit/mL Solution 10 unit SCi BID Referrals: Jean Pierre Nelson MD [Physician] - 07/24/24 3:00 pm Jalil Le MD [Primary Care Provider] - Patient/Caregiver Discharge Instructions Discharge Activity: resume usual activities Education Materials: Diabetes: The Benefits of Exercise, Preventing Surgical Site Infections Print Language: Belgian Stand Alone Forms: [employer] Award Info., Patient Portal Info Letter Discharge Order Discharge Orders: Discharge (Routine); Ordered 07/21/24 Ordered By: Alireza Landrum Quality Discharge Quality Measures VTE therapy Attestestation MD Attestation I reviewed labs, imaging, EKG, home medications and prior available records. Face to face evaluation was performed by me. I have personally examined the patient and discussed assessment and plan with the IM team. I reviewed the resident note and agree with the plan with exceptions as below. Patient is a 64-year-old male with history of CAD, cardiomyopathy with EF of 10 to 15%, insulin-dependent diabetes mellitus, foot ulcer status post bilateral B KA, who presented with a chief complaint of fall on his right stump area. He was found to have open wounds requiring surgical intervention Injury of right stump: In the setting of fall. Uncontrolled diabetes mellitus with hyperglycemia, insulin-dependent HFrEF EF 10 to 15% CAD status post PCI JADIEL on CKD 3b Status post left BKA Status post right BKA BPH Consulted general surgery. Status post revision of below the knee amputation. Management of pain as needed Follow-up MRSA: Negative. Will discharge on p.o. Keflex for 7 days Outpatient surgery follow-up Resumed Eliquis postoperatively Continue insulin Lantus plus sliding scale insulin. Monitor fingersticks Monitor kidney function. Avoid nephrotoxin. Nephrology consulted Hold diuretics
--- NOTE | 2024-07-21 14:42 | PC.SS ---
SS met with pt to discuss DC back to [facility]. Pt does not possess coverage for [facility] transport. SS reached out to [facility] and they also do not have transport to accommodate pt. Pt expressed he is unable to cover cost for transport at this time. SS contacted [facility] transport and requested [facility] transport. Harika with [facility] will call SS back to information and ETA if available.
--- NOTE | 2024-07-21 14:45 | PC.NURSE ---
Discharge orders in, verified okay to discharge with Dr Rudolph. Dr Rudolph is okay for pt to be discharged and follow up in office for dressing change. Appointment updated in the discharge plan. Pt will need new insurance authorization so will not go today. Dr Landrum made aware
[2024-07-21] MEDS: INSULIN LISPRO (AdmeLOG) 1 UNIT/0.01 ML UNIT 6 UNIT SC (14:46)
[2024-07-21] MEDS: INSULIN GLARGINE (Lantus) 5 UNIT/0.05 ML (PER 5 UNITS) SC (14:47)
[2024-07-21] MEDS: POLYETHYLENE GLYCOL 17 GM PACKET PO (16:16)
[2024-07-21] MEDS: APIXABAN 2.5 MG TABLET PO (21:55)
[2024-07-22] VITALS (10 sets, daily range): BP systolic 93–125; BP diastolic 53–78; PULSE 54–67; RESP 15–16; TEMP 36.1–36.6; O2SAT 95–99
[2024-07-22] MEDS: cephALEXin 250 MG CAPSULE 500 MG PO ×3 (05:31→21:24)
[2024-07-22] MEDS: TAMSULOSIN HCL 0.4 MG CAPSULE PO (09:10)
[2024-07-22] MEDS: APIXABAN 2.5 MG TABLET PO ×2 (09:11→21:23)
[2024-07-22] MEDS: ZINC SULFATE 220 MG CAPSULE PO (09:11)
[2024-07-22] MEDS: GABAPENTIN 300 MG CAPSULE PO (09:11)
[2024-07-22] MEDS: MIRTAZAPINE 15 MG TABLET PO (09:11)
[2024-07-22] MEDS: VIT B12/Vit C/FA (Nephrovite) TABLET 1 TAB PO (09:11)
[2024-07-22] MEDS: AMIODARONE HCL 200 MG TABLET PO ×2 (09:11→21:24)
[2024-07-22] MEDS: INSULIN GLARGINE (Lantus) 5 UNIT/0.05 ML (PER 5 UNITS) 10 UNIT SC ×2 (09:12→21:29)
[2024-07-22] MEDS: IRON SUCROSE CPLX INJ 20 MG/ML VIAL 5 ML 200 MG IVP (09:32)
[2024-07-22] MEDS: INSULIN LISPRO (AdmeLOG) 1 UNIT/0.01 ML UNIT SC ×3 (11:41→21:28)
--- NOTE | 2024-07-22 12:41 | PC.SS ---
SS spoke to Tata at [facility] who stated she is still pending auth through [place].
--- NOTE | 2024-07-22 15:12 | PD.RESDS ---
Planned Discharge Date 07/22/24 DS: Providers Provider Date of admission: 07/18/24 11:47 Primary care physician: Jalil Le MD Admitting Provider: Tristan Raman MD Attending Provider on Admission: Tristan Raman MD Consults: 07/18/24 10:46 Consult to General Surgery Stat Comment: Consulting Provider: Jean Pierre Nelson 07/18/24 18:36 [facility] Referral - Transportation Routine Comment: Positive screening for transportation needs. 07/19/24 05:19 Referral Registered Dietitian Routine Comment: Referral Wound Care Routine Comment: Attending Provider on DC: Adithya Castro MD Discharging Provider: Adithya Castro MD DS: Diagnosis Problem List Completed Was Problem List Reviewed/Reconciled?: Yes Hospital Course Hospital Course Hospital course: The patient is a 64-year-old male with a past medical history of CAD status post stents, hypertension, hyperlipidemia, CKD stage IIIb, type II DM, HFrEF 10-15%, bilateral BKA's, A-fib presented to the ED on 07/18/2024 with complaints of progressive pain at the the surgical site. Patient was found to have necrosis of the RT stump. He is s/p excision and revision of the amputation stump by general surgeon Dr Nelson. Patient is being discharged on insulin degludec for better blood sugar control, diabetes counseling provided; and on Keflex for 5 days to cover for infections. For consideration, he will benefit from freestyle alfredo or other CGM devices. Problems on this admission: - Necrosis of the flaps from the BKA amputation right leg - s/p Surgical wound necrosis s/p stump revision - Type II DM, on insulin - History of A-fib - History of HFrEF (EF 10-15%) - History of coronary artery disease s/p stent placement - JADIEL on CKD stage IIIb - Prerenal azotemia Procedures: S/p Revision of the amputation over the right leg below the knee Discharge instructions: - Follow up with PCP after discharge - Take Keflex 500mg three times a day for 5 days to complete antibiotic course. - Insulin Glargine changed to Degludec qPM for optimization - Can take famotidine 20mg up to twice a day for acid reflux. Stop pantoprazole, high risk of Cdiff infection with recurrent antibiotic use. - Mirtazipine increased to 30mg daily until follow up with PCP - Watch out for bleeding with Eliquis, monitor closely and call your surgeon Dr Nelson for follow up - Continue all other home medications as prescribed - Return to ED if symptoms worsen Case was discussed with Dr Landrum PGY-2 and attending physician, Dr Danisha Castro MD PGY-1 Disclaimer: This note was dictated by speech recognition. Minor errors in facilities assistant may be present due to voice recognition software. 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 Eyes open, symmetrical, & clear CARDIO: No chest pain on palpation. Heart RRR, no obvious murmurs PULM: No noted coughing/dyspnea. Lungs CTA B/L GI: Abdomen soft, nondistended, no pain on palpation. 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 SKIN/MSK/EXT: Bilateral BKA. Right knee/surgical site wrapped in clean and dry bandage Discharge Plan Plan Patient Disposition: Xfer Skilled Nsg Fac (SNF) Disposition Comment: [place] Patient condition on transfer: Stable Care Plan Goals: - Follow up with PCP after discharge - Take Keflex 500mg three times a day for 5 days to complete antibiotic course. - Insulin Glargine changed to Degludec 20 units qPM for optimization - Can take famotidine 20mg up to twice a day for acid reflux. Stop pantoprazole, high risk of C.diff infection with recurrent antibiotic use. - Mirtazipine increased to 30mg daily until follow up with PCP - Watch out for bleeding with Eliquis, monitor closely and call your surgeon Dr Nelson for follow up - Continue all other home medications as prescribed, especially iron tablets every other day - Return to ED if symptoms worsen Change Dressing every three days. Cleanse with NS, cover with fluffs, secure with kerlix roll. Follow up with Dr Ronni Nelson in 1 week. Call office to schedule appt Prescriptions/Referrals Prescriptions/Med Rec: New famotidine 20 mg tablet 20 mg PO BID PRN (Reason: acid reflux) Qty: 60 0RF cephalexin 500 mg capsule 500 mg PO TID 5 Days Qty: 15 0RF insulin degludec 200 unit/mL (3 mL) insulin pen 20 unit subcut QPM 30 Days Qty: 3 0RF Continued metformin 1,000 mg tablet 500 mg PO BID aspirin 81 mg Tablet,Delayed Release (Dr/Ec) 81 mg PO QDAY gabapentin 300 mg Capsule 300 mg PO QDAY tamsulosin [Flomax] 0.4 mg Capsule 0.4 mg PO DAILY amiodarone 200 mg tablet 200 mg PO BID Patient Comments: TAKE 1 TABLET BY MOUTH TWICE A DAY FOR 30 DAYS bumetanide 1 mg tablet 2 mg PO QDAY Eliquis 2.5 mg tablet 2.5 mg PO BID ferrous sulfate [FeroSul] 325 mg (65 mg iron) tablet 325 mg PO Q OTHER DAY metoprolol succinate 25 mg tablet extended release 24 hr 12.5 mg PO DAILY Patient Comments: TAKE HALF TABLET ORALLY DAILY FOR HTN HOLD FOR SBP <100 OR HR <60 hydrocodone-acetaminophen 5-325 mg tablet 1 tab PO Q6H PRN (Reason: pain) Patient Comments: PLEASE SEE ATTACHED FOR DETAILED DIRECTIONS ascorbic acid (vitamin C) [Vitamin C] 500 mg tablet 500 mg PO BID multivitamin [Daily Multi-Vitamin] Tablet 1 tab PO QDAY Changed mirtazapine 15 mg tablet 30 mg PO QDAY Qty: 60 0RF Discontinued sulfamethoxazole-trimethoprim 800-160 mg tablet 1 tab PO Q12H Patient Comments: TAKE 1 TABLET BY MOUTH EVERY 12 HOURS pantoprazole 40 mg tablet,delayed release (DR/EC) 40 mg PO QDAY Patient Comments: TAKE 1 TABLET BY MOUTH EVERY DAY FOR 30 DAYS insulin glargine [Lantus U-100 Insulin] 100 unit/mL Solution 10 unit SCi BID Referrals: Jean Pierre Nelson MD [Physician] - Jalil Le MD [Primary Care Provider] - Patient/Caregiver Discharge Instructions Discharge Activity: resume usual activities Education Materials: Diabetes: The Benefits of Exercise, Preventing Surgical Site Infections Print Language: Korean Stand Alone Forms: [employer] Award Info., Patient Portal Info Letter Discharge Order Discharge Orders: Discharge (Routine); Ordered 07/21/24 Ordered By: Alireza Landrum Quality Discharge Quality Measures VTE prophylaxis Attestestation MD Attestation I reviewed labs, imaging, EKG, home medications and prior available records. Face to face evaluation was performed by me. I have personally examined the patient and discussed assessment and plan with the IM team. I reviewed the resident note and agree with the plan with exceptions as below. Patient is a 64-year-old male with history of CAD, cardiomyopathy with EF of 10 to 15%, insulin-dependent diabetes mellitus, foot ulcer status post bilateral BKA, who presented with a chief complaint of fall on his right stump area. He was found to have open wounds requiring surgical intervention Injury of right stump: In the setting of fall. Uncontrolled diabetes mellitus with hyperglycemia, insulin-dependent HFrEF EF 10 to 15% CAD status post PCI JADIEL on CKD 3b Status post left BKA Status post right BKA BPH Consulted general surgery. Status post revision of below the knee amputation. Management of pain as needed Follow-up MRSA: Negative. Will discharge on p.o. Keflex for 7 days Outpatient surgery follow-up Resumed Eliquis postoperatively Resume home diabetes medications Monitor kidney function. Avoid nephrotoxin. Nephrology consulted Resume diuretics upon discharge
--- NOTE | 2024-07-22 18:02 | PC.NURSE ---
Dr Rudolph in to see pt. Dressing changed at bedside. Will need to be change every 3 days and needs to bring in stump protector for all transfers and trasportations. Family aware.
[2024-07-22] MEDS: ACETAMINOPHEN 325 MG TABLET 650 MG PO (21:53)
[2024-07-23] VITALS (7 sets, daily range): BP systolic 91–123; BP diastolic 54–67; PULSE 56–90; RESP 16–18; TEMP 36–36.5; O2SAT 96–98
[2024-07-23] MEDS: cephALEXin 250 MG CAPSULE 500 MG PO ×2 (05:23→14:11)
[2024-07-23 06:09] LABS: Basophils % (Auto) 0 % (0-2.5); Eosinophils # (Auto) 0.3 Thou/mm3 (0.0-0.5); Eosinophils % (Auto) 3 % (0-10); Hematocrit 27.7 % (41.0-53.0); Hemoglobin 8.9 g/dL (13.5-16.0); Immature Granulocytes % (Auto) 2 % (0-0); Immature Granulocytes Auto 0.13 Thou/mm3 (0.00-0.00); Lymphocytes % (Auto) 23 % (10-50); Mean Corpuscular HGB Conc 32.1 g/dl (31.0-37.0); Mean Corpuscular Volume 78 fL (80-100); Monocytes # (Auto) 0.7 Thou/mm3 (0.0-0.8); Monocytes % (Auto) 8 % (0-12); Neutrophils # (Auto) 5.7 Thou/mm3 (1.8-7.7); Neutrophils % (Auto) 65 % (37-80); Nucleated Red Blood Cell % 0 /100 WBC (0); Platelet Count 242 Thou/mm3 (140-440); RDW Standard Deviation 58.1 fL (35.1-43.9); Red Blood Count 3.56 Miln/mm3 (4.50-5.90); White Blood Count 8.7 Thou/mm3 (3.8-10.6)
[2024-07-23 06:36] LABS: Anion Gap 6 (7-16); BUN/Creatinine Ratio 22 Ratio (12-20); Blood Urea Nitrogen 52 mg/dL (9-23); Calcium 8.4 mg/dL (8.3-10.6); Chloride 110 mMol/L (98-107); Creatinine (Component) 2.4 mg/dL (0.6-1.3); Estimated Creatinine Clearance 28.2 mL/min (>60); Glucose 131 mg/dL (74-106); Osmolality,Calculated 291 (275-295); Potassium 4.6 mMol/L (3.4-5.1); Sodium 138 mMol/L (136-145); eGFR 29 See Note
[2024-07-23] MEDS: AMIODARONE HCL 200 MG TABLET PO (08:32)
[2024-07-23] MEDS: VIT B12/Vit C/FA (Nephrovite) TABLET 1 TAB PO (08:33)
[2024-07-23] MEDS: MIRTAZAPINE 15 MG TABLET PO (08:33)
[2024-07-23] MEDS: ZINC SULFATE 220 MG CAPSULE PO (08:33)
[2024-07-23] MEDS: APIXABAN 2.5 MG TABLET PO (08:33)
[2024-07-23] MEDS: INSULIN GLARGINE (Lantus) 5 UNIT/0.05 ML (PER 5 UNITS) 10 UNIT SC (08:33)
[2024-07-23] MEDS: FERROUS SULF 325 MG TABLET PO (08:33)
[2024-07-23] MEDS: TAMSULOSIN HCL 0.4 MG CAPSULE PO (08:33)
[2024-07-23] MEDS: GABAPENTIN 300 MG CAPSULE PO (08:33)
[2024-07-23] MEDS: HYDROcodone/APAP 5/325 TABLET 1 TAB PO (14:11)
--- NOTE | 2024-07-23 14:35 | ESPR_ITS ---
Documentation for date of: 07/23/24 Subjective Subjective Interval history: Patient seen at bedside. No acute overnight events. This is day 3 postop of flap revision, he has no complaints. Labs reviewed- creatinine improving, 2.4 today, closer to baseline. Patient is pending authorization for SNF placement. 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 Eyes open, symmetrical, & clear CARDIO: No chest pain on palpation. Heart RRR, no obvious murmurs PULM: No noted coughing/dyspnea. Lungs CTA B/L GI: Abdomen soft, nondistended, no pain on palpation. BSx4 URO/[employer] ASSOCIATE:: No further abnormalities noted. SKIN/MSK/EXT: Bilateral BKA. Right knee/surgical site wrapped in clean and dry bandage Objective Labs 07/23/24 05:20 07/23/24 05:20 Labs: Laboratory Results - last 24 hr 07/23/24 05:20 WBC 8.7 RBC 3.56 L Hgb 8.9 L Hct 27.7 L MCV 78 L MCH 25.0 MCHC 32.1 RDW Std Deviation 58.1 H Plt Count 242 Neut % (Auto) 65 Lymph % (Auto) 23 Ray % (Auto) 8 Eos % (Auto) 3 Baso % (Auto) 0 Neut # (Auto) 5.7 Lymph # (Auto) 2.0 Ray # (Auto) 0.7 Eos # (Auto) 0.3 Baso # (Auto) 0.0 Immature Gran # (Auto) 0.13 H Absolute Nucleated RBC 0.00 Immature Gran % 2 H Nucleated RBC % 0 Sodium 138 Potassium 4.6 Chloride 110 H Carbon Dioxide 22.0 Anion Gap 6 L BUN 52 H Creatinine 2.4 H Estim Creat Clear Calc 28.2 L eGFR 29 L BUN/Creatinine Ratio 22 H Glucose 131 H D Calculated Osmolality 291 Calcium 8.4 Quality Measures Quality Measures VTE prophylaxis Advance care planning discussed with:: patient Assessment & Plan Assessment Current Active Medications: Generic Name Dose Route Start Last Admin Trade Name Ana PRN Reason Stop Dose Admin Acetaminophen 650 mg 07/18/24 11:47 07/22/24 21:53 Acetaminophen 325 Mg Tablet PO 08/17/24 11:46 650 mg Q6H PRN Administration Pain 1-3 or Fever >100.3 Hydrocodone Bitart/Acetaminophen 1 tab 07/23/24 14:00 07/23/24 14:11 Hydrocodone/Apap 5/325 Tablet PO 07/28/24 13:59 1 tab Q6HR PRN Administration Pain 4-10 Amiodarone HCl 200 mg 07/18/24 21:00 07/23/24 08:32 Amiodarone Hcl 200 Mg Tablet PO 08/17/24 20:59 200 mg BID KENNY Administration Apixaban 2.5 mg 07/21/24 21:00 07/23/24 08:33 Apixaban 2.5 Mg Tablet PO 08/20/24 20:59 2.5 mg BID KENNY Administration Cephalexin HCl 500 mg 07/21/24 14:00 07/23/24 14:11 Cephalexin 250 Mg Capsule PO 07/26/24 13:59 500 mg TID KENNY Administration Dextrose 50 ml 07/18/24 11:53 Dextrose 50%-Water Inj 50 Ml Syringe IV 08/17/24 11:52 Q15MIN PRN BG <50 OR BG <70 & pt unresponsive Ferrous Sulfate 325 mg 07/21/24 07:45 07/23/24 08:33 Ferrous Sulf 325 Mg Tablet PO 08/20/24 07:44 325 mg QOD KENNY Administration Gabapentin 300 mg 07/19/24 09:00 07/23/24 08:33 Gabapentin 300 Mg Capsule PO 08/18/24 08:59 300 mg QDAY KENNY Administration Glucagon 1 mg 07/18/24 11:53 Glucagon Inj 1 Mg Vial IM Q15MIN PRN BG <70, and no IV access Insulin Glargine 10 unit 07/18/24 21:00 07/23/24 08:33 Insulin Glargine (Lantus) 5 Unit/0.05 Ml (Per 5 Units) SC 08/17/24 20:59 10 unit BID KENNY Administration Insulin Human Lispro 0 unit 07/20/24 22:48 07/23/24 14:03 Insulin Lispro (Admelog) 1 Unit/0.01 Ml Unit SC 08/19/24 20:44 Not Given ACHS KENNY Protocol Mirtazapine 15 mg 07/19/24 09:00 07/23/24 08:33 Mirtazapine 15 Mg Tablet PO 08/18/24 08:59 15 mg QDAY KENNY Administration Ondansetron HCl 4 mg 07/18/24 11:47 Ondansetron Inj 2 Mg/Ml Inj 2 Ml IV 08/17/24 11:46 Q6H PRN NAUSEA OR VOMITING Protocol Polyethylene Glycol 17 gm 07/21/24 15:43 07/21/24 16:16 Polyethylene Glycol 17 Gm Packet PO 08/20/24 15:44 17 gm QDAY PRN Administration constipation Tamsulosin HCl 0.4 mg 07/19/24 09:00 07/23/24 08:33 Tamsulosin Hcl 0.4 Mg Capsule PO 08/18/24 08:59 0.4 mg QDAY KENNY Administration Vitamin B Complex/Vit C/Folic Acid 1 tab 07/21/24 09:00 07/23/24 08:33 Vit B12/Vit C/Fa (Nephrovite) Tablet PO 08/20/24 08:59 1 tab QDAY KENNY Administration Zinc Sulfate 220 mg 07/22/24 09:00 07/23/24 08:33 Zinc Sulfate 220 Mg Capsule PO 08/21/24 08:59 220 mg QDAY KENNY Administration Plan Summary: Patient is a 64-year-old male with a past medical history of CAD status post stents, hypertension, hyperlipidemia, CKD stage IIIb, type II DM, HFrEF 10- 15%, bilateral BKA's, A-fib presented to the ED on 07/18/2024 with complaints of progressive down the surgical site. #Surgical wound necrosis s/p stump revision Day 3 Post op #Leukocytosis-resolved The patient presented to Dr. Rudolph 2 days ago for follow-up after his right BKA who inspected the wound and did notice some changes. He was recommended by Dr. Rudolph to come to the ED for further evaluation. Otherwise, the patient has been stable has had no fevers or no pain he did fall a couple days prior to his visit to the surgeons office on his right knee and it was said to have been red at the time, he complained of some pain but no bleeding. Surgeon Dr. Rudolph was consulted and recommended to admit the patient for possible debridement. 07/23/2024- Stable post op Plan: -Continue Keflex -Pain management -Pending auth for SNF, stable for discharge # History of HFrEF (EF 10-15%) #History of coronary artery disease s/p stent placement The patient has extensive past medical history of cardiac disease; heart failure along with CAD and follows Dr. Velazquez, cardiology, outpatient Echo from 05/2024 shows: Mildly dilated LV. Normal wall thickness. Estimated EF 30-35 %. Global LV systolic function is severely decreased. RV not well visualized. [id number] MR. Echo 06/03: EF 10-15% Grade III DD akinetic apex with severe global hypokinesis, moderate PAH, MR, dilated cardiomyopathy Blood pressure on admission at this time soft Plan: -Holding Bumex now #JADIEL on CKD stage IIIb #Prerenal azotemia The patient has a history of CKD stage IIIb and on discharge about 2 weeks ago, GFR was 48 with creatinine of 1.6. On this admission, GFR was 29 with creatinine of 2.9 Patient has had decreased oral intake and has also been on diuretics. 07/20/2024- Creatinine today slightly improved, now at 2.7 Plan: -Encourage increase oral intake -Renally dose all medications -Avoid nephrotoxic medications #History of A-fib The patient has a history of A-fib and is on amiodarone and Eliquis. Currently, patient is not in A-fib. Heart rate is 65. Plan: -EKG -Resume amiodarone -Eliquius resumed #History of type II DM Patient has a history of type II DM and is on subcutaneous glargine 10 units twice daily as well as metformin 500 mg twice daily. Blood glucose on admission 107. Last A1c done 3 weeks ago-10.2 Plan: -Subcutaneous glargine 10 units twice daily -ISS -Blood glucose check AC -Hypoglycemic protocols in place Health maintenance: Dispo: [employer] Diet: Carb consistent low DVT: Eliquis Prather: None Lines: Peripheral Code: Full Case was discussed with Dr Estrada PGY-2 and attending physician, Dr Danisha Castro MD PGY-1 Disclaimer: This note was dictated by speech recognition. Minor errors in partner management consultant may be present due to voice recognition software. Attending Provider Attestation/Addendum I reviewed labs, imaging, EKG, home medications and prior available records. Face to face evaluation was performed by me. I have personally examined the patient and discussed assessment and plan with the IM team. I reviewed the resident note and agree with the plan with exceptions as below. Patient is a 64-year-old male with history of CAD, cardiomyopathy with EF of 10 to 15%, insulin-dependent diabetes mellitus, foot ulcer status post bilateral BKA, who presented with a chief complaint of fall on his right stump area. He was found to have open wounds requiring surgical intervention Injury of right stump: In the setting of fall. Uncontrolled diabetes mellitus with hyperglycemia, insulin-dependent HFrEF EF 10 to 15% CAD status post PCI JADIEL on CKD 3b Status post left BKA Status post right BKA BPH Consulted general surgery. Status post revision of below the knee amputation. Management of pain as needed Follow-up MRSA: Negative. Will discharge on p.o. Keflex for 7 days Outpatient surgery follow-up Resumed Eliquis postoperatively Resume home diabetes medications Monitor kidney function. Avoid nephrotoxin. Nephrology consulted Resume Bumex upon discharge
--- NOTE | 2024-07-23 15:51 | PC.SS ---
Follow up note: Patient has d/c orders. SS received call from [employer] [facility] and they now have authorization. Patient scheduled to d/c today. SS updated patient and floor nurse. [facility] obtained for [employer] transport. Patient's insurance does not cover.
== END 2024-07-23 16:56 | disposition skilled nursing facility (03) | DRG 564 ==
LOC: SERX 10:58 → SERHOLD 13:39 → S3SX 18:14
PROVIDERS: Student in an Organized Health Care Education/Training Program; Surgery; Admitting Provider Student in an Organized Health Care Education/Training Program; Emergency Provider Emergency Medicine; PCP Family Medicine; Visit Provider Student in an Organized Health Care Education/Training Program
PROC: (CPT 27880; principal; 2024-07-20 10:00)
DX: T87.53 Necrosis of amputation stump, right lower extremity (principal); J96.01 Acute respiratory failure with hypoxia; J96.02 Acute respiratory failure with hypercapnia; I13.0 Hypertensive heart and chronic kidney disease with heart failure and stage 1 through stage 4 chronic kidney disease, or unspecified chronic kidney disease; I50.22 Chronic systolic (congestive) heart failure; N17.9 Acute kidney failure, unspecified; I42.0 Dilated cardiomyopathy; E11.52 Type 2 diabetes mellitus with diabetic peripheral angiopathy with gangrene; Z89.511 Acquired absence of right leg below knee; E11.42 Type 2 diabetes mellitus with diabetic polyneuropathy; N18.32 Chronic kidney disease, stage 3b; E78.5 Hyperlipidemia, unspecified; I48.91 Unspecified atrial fibrillation; E11.22 Type 2 diabetes mellitus with diabetic chronic kidney disease; E11.65 Type 2 diabetes mellitus with hyperglycemia; I25.10 Atherosclerotic heart disease of native coronary artery without angina pectoris; N40.0 Benign prostatic hyperplasia without lower urinary tract symptoms; Z89.512 Acquired absence of left leg below knee; Z79.4 Long term (current) use of insulin; W19.XXXA Unspecified fall, initial encounter; Z95.5 Presence of coronary angioplasty implant and graft; Z79.01 Long term (current) use of anticoagulants; Z79.84 Long term (current) use of oral hypoglycemic drugs; Y83.8 Other surgical procedures as the cause of abnormal reaction of the patient, or of later complication, without mention of misadventure at the time of the procedure
CPT/HCPCS: 36415; 80048; 80053; 80061; 82947; 83540; 83550; 83735; 84100; 85025; 85610; 85730; 86850; 86900; 86901; 87040; 87070; 87081; 87205; 93005; 93225; 96365; 96366; 96367; 99285; A4217; A4649; J0689; J1100; J1756; J1815; J2250; J2543; J2704; J2795; J3010; J3371; J3420; J7050; A9270

== ENCOUNTER 2024-08-21 18:51 | Inpatient (IN) | payer OTHER, MEDICARE, SELFPAY ==
[2024-08-21] VITALS (27 sets, daily range): BP systolic 80–126; BP diastolic 37–62; PULSE 39–96; RESP 12–24; O2SAT 79–100
--- NOTE | 2024-08-21 19:01 | EKG_ITS ---
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: : 1960 Requested By: ED Temporary Provider Order Number: [id number] Reading MD: ED Temporary Provider Measurements Intervals [place] Rate: 41 P: NC: QRS: -65 QRSD: 160 T: 68 QT: 610 QTc: 509 Interpretive Statements UNCERTAIN REGULAR RHYTHM LEFT AXIS DEVIATION [QRS AXIS < -30] INTRAVENTRICULAR CONDUCTION DELAY [130+ ms QRS DURATION] PROLONGED QT INTERVAL CRITICAL TEST RESULT Compared to ECG 07/18/2024 17:15:46 Left-axis deviation now present Intraventricular conduction delay now present Prolonged QT interval now present Sinus rhythm no longer present Myocardial infarct finding no longer present /store/S0/[id number].pdf
[2024-08-21] MEDS: CALCIUM CHLORIDE 10% INJ 10 ML SYRG IV ×2 (19:05→22:13)
--- NOTE | 2024-08-21 19:06 | PD.EDAMS ---
Altered Mental Status RME/HPI General Chief Complaint: Altered Mental Status Stated Complaint: BRADYCARDIA Time Seen by Provider: 08/21/24 19:06 Source: EMS Arrival date/time: 08/21/24 18:51 Mode of arrival: EMS Limitations: altered mental status RME / HPI RME / HPI narrative: Dr. Kennedy?s Main ED Evaluation: 64-year-old male brought in from [facility] exhibiting signs of confusion and altered mental status. The patient had been calling family members, requesting to be picked up from a taco stand, but was reportedly disoriented and unable to provide clear information. Given his concerning presentation, family requested to send patient here. Upon EMS arrival, the patient was noted to be profoundly bradycardic with a heart rate of 39 bpm and hypotensive with a blood pressure of 79/56 mmHg. Initial management included administration of atropine 1 mg IV, which produced no response. Due to persistent bradycardia with hemodynamic instability, transcutaneous pacing was initiated with successful electrical capture at 85 bpm. The exact timeline of symptom onset is uncertain; however, the last known well time was reported as 0900 today per family. No witnessed seizure activity, trauma, or preceding illness has been reported at this time. The patient was transported to the emergency department for further evaluation of worsening altered mental status and symptomatic bradycardia of unclear etiology. 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, s/p surgical wound necrosis s/p stump revision, A-fib, HFrEF (EF 10-15%), JADIEL on CKD stage IIIb, prerenal azotemia Medications: Acetaminophen, Admelog Insulin, Amoidarone, Aspirin, Bumetanide, Eliquis, Famotidine, Gabapentin, Hydrocodone, Metoprolol, Mirtazapine, Mupirocin Related Data Home Medications ?Medication ?Instructions ?Recorded ?Confirmed metformin 1,000 mg tablet 500 mg PO BID 06/24/20 07/20/24 aspirin 81 mg tablet,delayed 81 mg PO QDAY 03/23/22 07/20/24 release gabapentin 300 mg capsule 300 mg PO QDAY 01/01/24 07/20/24 tamsulosin 0.4 mg capsule (Flomax) 0.4 mg PO DAILY 01/01/24 07/20/24 amiodarone 200 mg tablet 200 mg PO BID 07/20/24 07/20/24 apixaban 2.5 mg tablet (Eliquis) 2.5 mg PO BID 07/20/24 07/20/24 ascorbic acid (vitamin C) 500 mg 500 mg PO BID 07/20/24 07/20/24 tablet (Vitamin C) bumetanide 1 mg tablet 2 mg PO QDAY 07/20/24 07/20/24 ferrous sulfate 325 mg (65 mg 325 mg PO Q OTHER DAY 07/20/24 07/20/24 iron) tablet (FeroSul) hydrocodone 5 mg-acetaminophen 325 1 tab PO Q6H PRN pain 07/20/24 07/20/24 mg tablet metoprolol succinate 25 mg 12.5 mg PO DAILY 07/20/24 07/20/24 tablet,extended release 24 hr multivitamin (Daily Multi-Vitamin 1 tab PO QDAY 07/20/24 07/20/24 tablet) Previous Rx's ?Medication ?Instructions ?Recorded famotidine 20 mg tablet 20 mg PO BID PRN acid reflux #60 07/21/24 tabs mirtazapine 15 mg tablet 30 mg (2 x 15 mg) PO QDAY #60 tabs 07/21/24 Allergies Allergy/AdvReac Type Severity Reaction Status Date / Time No Known Allergies Allergy Verified 07/20/24 11:39 Review of Systems Review of Systems ROS Unobtainable: unobtainable due to mental status Past Medical History Past Medical History Comments PMH COMMENT: 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, s/p surgical wound necrosis s/p stump revision, A-fib, HFrEF (EF 10-15%), JADIEL on CKD stage IIIb, prerenal azotemia Medications: Acetaminophen, Admelog Insulin, Amoidarone, Aspirin, Bumetanide, Eliquis, Famotidine, Gabapentin, Hydrocodone, Metoprolol, Mirtazapine, Mupirocin ED Exam General Limitations: Present altered mental status General appearance: Present obtunded Head Head exam: Present atraumatic and normocephalic Eye Eye exam: Present normal appearance, PERRL and EOMI ENT ENT exam: Present normal exam, normal oropharynx and mucous membranes dry Neck Neck exam: Present normal inspection, full ROM and trachea midline Chest Chest inspection: Present normal inspection and symmetric chest wall rise Respiratory Respiratory exam: Present normal lung sounds bilaterally Cardiovascular Cardiovascular exam: Present bradycardia; Absent systolic murmur or diastolic murmur Abdominal Exam Abdominal exam: Present soft and normal bowel sounds Rectal Exam Rectal exam: Present deferred Extremities Exam Extremities exam: Present normal inspection; Absent tenderness Back Exam Back exam: Present normal inspection and full ROM Neurological Exam Neurological exam: Present CN II-XII intact Psychiatric Psychiatric exam: Present normal affect and normal mood Skin Skin exam: Present warm, dry, intact and normal color Course Quality Measures none Orders Category Date Time Status Patient Condition Routine Admission 08/21/24 23:37 Ordered Bedside Blood Glucose Q2HX3 Care 08/21/24 19:09 Active Bedside Blood Glucose Q2HX3 Care 08/21/24 21:53 Active Mmi Teacher Q4H START 00 Care 08/21/24 23:37 Active Central Line Insertion X1 Care 08/21/24 19:45 Active EKG (ED ONLY) *Do not use* NOW Care 08/21/24 19:01 Completed Emergency Titration Protocol Stat Care 08/21/24 19:15 Ordered Prather [Urinary Catheter] QS Care 08/21/24 22:00 Completed Prather [Urinary Catheter] QS Care 08/21/24 22:32 Active Hemodialysis Urgent Care 08/21/24 23:11 Active NPO NOW Care 08/21/24 23:38 Active Consult to Nephrology Stat Cons 08/21/24 23:10 Ordered Diet NPO (NOW) Diet 08/21/24 23:[address] head/brain wo con Stat Exams 08/21/24 21:52 Completed CXR [XR chest 1V post procedure] Stat Exams 08/21/24 19:28 Completed EKG (ED Only) Stat Exams 08/21/24 19:01 Ordered Ammonia Stat Lab 08/21/24 23:24 Completed Blood Culture (Lab) Stat Lab 08/21/24 20:20 Received CBC AM DRAW Lab 08/24/24 05:00 Ordered CBC AM DRAW Lab 08/25/24 05:00 Ordered CBC AM DRAW Lab 08/26/24 05:00 Ordered CBC AM DRAW Lab 08/27/24 05:00 Ordered CBC AM DRAW Lab 08/28/24 05:00 Ordered CBC Stat Lab 08/21/24 19:10 Completed CMP [Comprehensive Metabolic Panel] Stat Lab 08/21/24 19:10 Completed Comprehensive Metabolic Panel AM DRAW Lab 08/24/24 05:00 Ordered Comprehensive Metabolic Panel AM DRAW Lab 08/25/24 05:00 Ordered Comprehensive Metabolic Panel AM DRAW Lab 08/26/24 05:00 Ordered Comprehensive Metabolic Panel AM DRAW Lab 08/27/24 05:00 Ordered Comprehensive Metabolic Panel AM DRAW Lab 08/28/24 05:00 Ordered Lactate (Lactic Acid) Stat Lab 08/21/24 23:24 Results Magnesium Stat Lab 08/21/24 19:10 Completed PT [Prothrombin Time with INR] Stat Lab 08/21/24 20:24 Completed PTT [Partial Thromboplastin Time] Stat Lab 08/21/24 20:24 Completed Phosphorous Stat Lab 08/21/24 19:10 Completed Renal Function Panel Stat Lab 08/21/24 23:24 Completed Urinalysis Stat Lab 08/21/24 23:40 Completed VBG [Venous Blood Gas] Stat Lab 08/21/24 20:24 Completed VBG [Venous Blood Gas] Stat Lab 08/21/24 23:24 Completed Acetaminophen Supp [Tylenol Supp] Med 08/21/24 23:37 Active 650 mg AZ Q4HR PRN Acetaminophen Tab [Tylenol Tab] Med 08/21/24 23:37 Active 650 mg PO Q4HR PRN Albuterol/Ipratr Rt Jing [Duoneb Rt Jing] Med 08/21/24 19:07 Discontinued 3 ml .ROUTE .STK-MED ONE Albuterol/Ipratr Rt Jing [Duoneb Rt Jing] Med 08/21/24 19:08 Discontinued 3 ml INH X1 ONE Calcium Chloride 10% Abboject Med 08/21/24 19:08 Discontinued 10 ml IV X1 ONE Calcium Chloride 10% Abboject Med 08/21/24 19:09 Discontinued 10 ml IV X1 ONE Calcium Chloride 10% Abboject Med 08/21/24 21:52 Discontinued 10 ml IV X1 ONE Calcium Gluc/Ns 1000MG Ivpb [Calcium Gluc/Ns 1000mg Med 08/22/24 00:22 Discontinued Ivpb] 1,000 mg in 50 ml IV X1 DOPamine/D5w 400 MG IVPB [Intropin in D5w Ivpb] Med 08/21/24 19:06 Active 400 mg in 250 ml IV 5 mcg/kg/min Dextrose 5%-0.45% Ns [D5-1/2Ns] 500 ml Med 08/22/24 00:20 Discontinued IV 250 mls/hr Dextrose 50% Syr [D50w Syringe Abboject] Med 08/21/24 21:52 Discontinued 50 ml IV X1 ONE Dextrose 50% Syr [D50w Syringe Abboject] Med 08/22/24 00:17 Discontinued 50 ml IV X1 ONE Heparin Inj Med 08/22/24 06:00 Active 5,000 unit SC Q8HR Insulin Regular Med 08/21/24 21:52 Discontinued 10 unit IV X1 ONE Insulin Regular Med 08/22/24 00:21 Discontinued 10 unit IV X1 ONE Lidocaine 1% 20 ml [Xylocaine 1% 20 ML] Med 08/22/24 00:45 Discontinued 20 ml .ROUTE .STK-MED ONE Lidocaine 1% 20 ml [Xylocaine 1% 20 ML] Med 08/22/24 00:49 Discontinued 20 ml IM X1 ONE Magnesium Sulf 50% Inj (gm) Med 08/21/24 20:48 Discontinued 1 gm IVP X1 ONE Magnesium Sulfate 2 GM Ivpb [Magnesium Sulfate Ivpb] Med 08/21/24 19:19 Discontinued 2 gm in 50 ml IV X1 Midazolam Inj [Versed Inj] Med 08/21/24 20:36 Discontinued 1 mg IV X1 ONE Midazolam/Ns 100 mg Ivpb [Versed Pf Inj in Ns Premix] Med 08/21/24 19:42 Active 100 mg in 100 ml IV 1 mg/hr Milk Of Magnesia Susp [Mom Susp] Med 08/21/24 23:37 Active 30 ml PO QDAY PRN Morphine IV Drip 100mg/100ml [Morphine Sulfate IV Drip Med 08/21/24 20:38 Active 100mg/100ml] 100 ml IV Q50H Norepinephrine/D5W 8mg/250ml [Levophed in D5W 8mg/250ml Med 08/21/24 21:09 Active ] 8 mg in 250 ml IV 0.05 mcg/kg/min Sodium Bicarb 8.4% SYR Med 08/21/24 19:08 Discontinued 50 ml IV X1 ONE Sodium Bicarb 8.4% SYR Med 08/21/24 21:52 Discontinued 50 ml IV X1 ONE cefTRIAXone [Rocephin] 2 gm Med 08/21/24 23:43 Pending SODIUM CHLORIDE 0.9% (Popper) [Ns 0.9% (P)] 50 ml IV QDAY cefTRIAXone [Rocephin] 2 gm Med 08/22/24 00:30 Discontinued SODIUM CHLORIDE 0.9% (Popper) [Ns 0.9% (P)] 50 ml IV X1 mg Hyd/Al Hyd/Stephy Susp [Maalox Susp] Med 08/21/24 23:37 Discontinued 30 ml PO Q4HR PRN mg Hyd/Al Hyd/Stephy Susp [Maalox Susp] Med 08/22/24 00:31 Active 30 ml PO Q4HR PRN Code Status Routine Oth 08/21/24 23:37 Ordered Oxygen Delivery PRN RT 08/21/24 23:37 Active Vital Signs Vital signs: Vital Signs Pulse Rate 78 08/21/24 19:05 Respiratory Rate 20 08/21/24 19:05 Pulse Oximetry (%) 79 L 08/21/24 19:05 Procedures -ED Central Line Placement Right IJ: Time Out Performed: Yes Patient Placed on Monitor/Pulse Ox: Yes Hand Hygiene: scrub and soap & water Max Sterile Barrier Techniques used: mask, sterile gown, sterile gloves and sterile full body drape Central Line Prep: Povidone-Iodine 1% and sterile drapes applied Local Anesthetic: with bicarb Ultrasound Used for Placement: No Sterile Technique if Ultrasound used, including sterile gel: no Central Line Lumen Inserted: single Post Procedure: sutured in place, good blood return, all ports aspirated, flushed, capped and sterile dressing applied Post Procedure X-Ray: tip of catheter in good position and no pneumothorax seen Patient Tolerated Procedure: well and no complications Complications: none Altered Mental Status MDM Narrative MDM Narrative:: 64-year-old male with a complex medical history, including atherosclerotic heart diesease, hypertensive heart disease with heart failure, hyperlipidemia, iron deficiency anemia, peripheral vascular disease, osteomyelitis right ankle/foot, type II diabetes with hyperglycemia, chronic kidney disease, diabetic polyneuropathy, lizeth BKA, dysphagia, malnutrition, acute respiratory failure with hypoxia, absence of right fingers, chronic systolic congestive heart failure, CAD, status post PCI with LAD stents, 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 His medication regimen includes Amiodarone, Metoprolol, Bumetanide, Eliquis, and other cardiac and diabetic management medications. The patient was brought in from [facility] after exhibiting acute confusion and altered mental status, reportedly calling family and requesting to be picked up from a taco stand. Family noted disorientation and an inability to provide clear information, prompting them to request EMS transport. Upon EMS arrival, the patient was found to be: -Bradycardic (HR 39 bpm) -Hypotensive (BP 79/56 mmHg) Interventions by EMS: -Atropine 1 mg x2 IV: No response -Transcutaneous pacing initiated: Capture achieved at 85 bpm Given the uncertain timeline of symptom onset (last known well 0900 today per family) and the lack of reported seizure activity, trauma, or preceding illness, the etiology remains unclear. Upon arrival, the patient was immediately assessed and transferred to Bed 5. His bradycardia and hypotension warranted vasoactive support: Medication Administration in ED: -1904 ? Calcium Chloride 10 mL IV -1906 ? Sodium Bicarbonate 50 mL IV -1914 ? Dopamine infusion initiated -1914 ? Additional Sodium Bicarbonate 50 mL IV Central line in place with right internal jugular (IJ) access Differential Diagnosis: Bradycardia, Altered Mental Status, UTI, pneumonia Dr. Velazquez, cardiology, evaluated the patient at the bedside. Pacemaker need has been ruled out. He has initiated a Levophed drip. The patient was recently discontinued from antibiotics. 2143: The patient's has elected to establish DNR/DNI status for the patient. She notes patient has been hallucinating on and off for the past 2 weeks. Patient to be admitted to ICU. Scribe Attestation: I, Jhoana Freitas, am scribing for and in the presence of Dr. Kennedy. Provider Notation: Although this document has been carefully reviewed, there may still be some phonetic and other typographical errors. These errors are purely grammatical due to imperfections in the software program and should not be construed in any way to compromise the substance of the patient's medical care during this visit. Patient data External records reviewed:: [facility] records Clinical information provided by:: EMS Social determinants that could affect healthcare access:: none Patient has the following chronic illnesses:: see PMH How is presenting disease/condition affected by chronic disease/condition?: uneffected by Evaluation data The following diagnostics were reviewed and interpreted by me:: lab results, radiology exam(s) and EKG tracing(s) Lab and/or radiology exams considered but not ordered:: n/a Interpretation Summary: see narrative I personally reviewed the radiology data and agree with the radiologist's interpretation. Examination: AP chest single view Technique one AP portable supine chest single view Exam date and time: August 21, 2024 1834 hrs. Comparison 01/02/2024 Indications: Post central line placement Findings: Right internal jugular central line tip SVC satisfactory position, no pneumothorax Bilateral pneumonia and/or pulmonary edema Impression: Right internal jugular central line tip satisfactory position Dictated By: Toney Rae MD Medications / Prescriptions Medications or Prescriptions considered but not ordered:: n/a Medication administrations:: Medication Administration History Acetaminophen (Acetaminophen 325 Mg Tablet) 650 mg PO Q4HR PRN PRN Reason: PAIN SCALE 1-3 (mild Stop: 09/20/24 23:36 Acetaminophen (Acetaminophen Supp 650 Mg Supp) 650 mg AZ Q4HR PRN PRN Reason: PAIN SCALE 1-3 (mild Stop: 09/20/24 23:36 Al Hydrox/Mg Hydrox/Simethicone (Mg Hyd/Al Hyd/Stephy (Maalox Reg) Susp 30 Ml Udc) 30 ml PO Q4HR PRN PRN Reason: Heartburn or Upset Stomach Stop: 09/20/24 23:36 Heparin Sodium (Porcine) (Heparin Sod Inj 5000 Unit/Ml Vial) 5,000 unit SC Q8HR KENNY Stop: 09/05/24 05:59 Dopamine HCl/Dextrose (Intropin In D5w Ivpb) 400 mg in 250 mls @ 15 mls/hr IV .[id number] KENNY; Protocol Stop: 09/20/24 19:05 Last Admin: 08/22/24 01:00 Dose: 13 mcg/kg/min, 39 mls/hr Documented By: JEAN-PAUL Titration: 08/22/24 01:00 Dose: Infused Documented By: JEAN-PAUL Titration: 08/22/24 01:00 Dose: 13 mcg/kg/min, 39 mls/hr Documented By: JEAN-PAUL Titration: 08/22/24 00:11 Dose: 13 mcg/kg/min, 39 mls/hr Documented By: JEAN-PAUL Titration: 08/22/24 00:00 Dose: 15 mcg/kg/min, 45 mls/hr Documented By: JEAN-PAUL Titration: 08/21/24 23:21 Dose: 15 mcg/kg/min, 45 mls/hr Documented By: JEAN-PAUL Titration: 08/21/24 23:00 Dose: 17 mcg/kg/min, 51 mls/hr Documented By: JEAN-PAUL Titration: 08/21/24 22:00 Dose: 17 mcg/kg/min, 51 mls/hr Documented By: JEAN-PAUL Titration: 08/21/24 21:02 Dose: 19 mcg/kg/min, 57 mls/hr Documented By: JEAN-PAUL Titration: 08/21/24 21:00 Dose: 17 mcg/kg/min, 51 mls/hr Documented By: JEAN-PAUL Titration: 08/21/24 20:52 Dose: 17 mcg/kg/min, 51 mls/hr Documented By: JEAN-PAUL Titration: 08/21/24 20:20 Dose: 15 mcg/kg/min, 45 mls/hr Documented By: JEAN-PAUL Titration: 08/21/24 19:57 Dose: 9 mcg/kg/min, 27 mls/hr Documented By: Titration: 08/21/24 19:35 Dose: 7 mcg/kg/min, 21 mls/hr Documented By: Admin: 08/21/24 19:15 Dose: 5 mcg/kg/min, 15 mls/hr Documented By: SHANIKA Midazolam HCl (Versed Pf Inj In Ns Premix) 100 mg in 100 mls @ 1 mls/hr IV .Q24H PRN; Protocol PRN Reason: PER PROTOCOL Stop: 08/26/24 19:41 Morphine Sulfate (Morphine Sulfate Iv Drip 100mg/100ml) 100 mls @ 2 mls/hr IV Q50H PRN; Protocol PRN Reason: PAIN (COMFORT CARE) Stop: 08/26/24 20:37 Norepinephrine/Dextrose (Levophed In D5w 8mg/250ml) 8 mg in 250 mls @ 7.5 mls/hr IV .Q24H PRN; Protocol PRN Reason: PER PROTOCOL Stop: 09/20/24 21:08 Last Titration: 08/22/24 01:00 Dose: 0.05 mcg/kg/min, 7.5 mls/hr Documented By: JEAN-PAUL Titration: 08/22/24 00:00 Dose: 0.05 mcg/kg/min, 7.5 mls/hr Documented By: JEAN-PAUL Titration: 08/21/24 23:00 Dose: 0.05 mcg/kg/min, 7.5 mls/hr Documented By: JEAN-PAUL Titration: 08/21/24 22:00 Dose: 0.05 mcg/kg/min, 7.5 mls/hr Documented By: JEAN-PAUL Admin: 08/21/24 21:17 Dose: 0.05 mcg/kg/min, 7.5 mls/hr Documented By: JEAN-PAUL Ceftriaxone Sodium 2 gm/ (Sodium Chloride) 50 mls @ 100 mls/hr IV QDAY KENNY Stop: 08/28/24 23:42 Magnesium Hydroxide (Milk Of Magnesia Susp 30 Ml Udc) 30 ml PO QDAY PRN PRN Reason: CONSTIPATION Stop: 09/20/24 23:36 Discontinued Medications Al Hydrox/Mg Hydrox/Simethicone (Mg Hyd/Al Hyd/Stephy (Maalox Reg) Susp 30 Ml Udc) 30 ml PO Q4HR PRN PRN Reason: Heartburn or Upset Stomach Stop: 09/20/24 23:36 Albuterol/Ipratropium (Albuterol/Ipratropium (Duoneb) Rt Jing 3 Ml Nebu) 3 ml INH X1 ONE Stop: 08/21/24 19:09 Last Admin: 08/21/24 20:14 Dose: Not Given Documented By: ROBERT Non-Admin Reason: Override Medication Albuterol/Ipratropium (Albuterol/Ipratropium (Duoneb) Rt Jing 3 Ml Nebu) Confirm Administered Dose 3 ml .ROUTE .STK-MED ONE Stop: 08/21/24 19:08 Last Admin: 08/21/24 20:17 Dose: 3 ml Documented By: ROBERT Calcium Chloride (Calcium Chloride 10% Inj 10 Ml Syrg) 10 ml IV X1 ONE Stop: 08/21/24 19:09 Last Admin: 08/21/24 19:12 Dose: Not Given Documented By: OXANA Non-Admin Reason: Duplicate Medication on eMAR Calcium Chloride (Calcium Chloride 10% Inj 10 Ml Syrg) 10 ml IV X1 ONE Stop: 08/21/24 19:10 Last Admin: 08/21/24 19:05 Dose: 10 ml Documented By: SHANIKA Calcium Chloride (Calcium Chloride 10% Inj 10 Ml Syrg) 10 ml IV X1 ONE Stop: 08/21/24 21:53 Last Admin: 08/21/24 22:13 Dose: 10 ml Documented By: JEAN-PAUL Dextrose (Dextrose 50%-Water Inj 50 Ml Syringe) 50 ml IV X1 ONE Stop: 08/21/24 21:53 Last Admin: 08/21/24 22:13 Dose: 50 ml Documented By: JEAN-PAUL Dextrose (Dextrose 50%-Water Inj 50 Ml Syringe) 50 ml IV X1 ONE Stop: 08/22/24 00:18 Magnesium Sulfate (Magnesium Sulfate Ivpb) 2 gm in 50 mls @ 25 mls/hr IV X1 ONE Stop: 08/21/24 21:18 Last Admin: 08/21/24 21:09 Dose: Not Given Documented By: SHANIKA Non-Admin Reason: Duplicate Medication on eMAR Ceftriaxone Sodium 2 gm/ (Sodium Chloride) 50 mls @ 100 mls/hr IV X1 ONE Stop: 08/22/24 00:59 Dextrose/Sodium Chloride (D5-1/2ns) 500 mls @ 250 mls/hr IV .Q2H ONE Stop: 08/22/24 02:19 Calcium Gluconate/Sodium Chloride (Calcium Gluc/Ns 1000mg Ivpb) 1,000 mg in 50 mls @ 50 mls/hr IV X1 ONE Stop: 08/22/24 01:21 Insulin Human Regular (Insulin Hum Regular 1 Unit/0.01 Ml (Per Unit)) 10 unit IV X1 ONE Stop: 08/21/24 21:53 Last Admin: 08/21/24 22:13 Dose: 10 unit Documented By: JEAN-PAUL Co-signed By: SHANIKA Insulin Human Regular (Insulin Hum Regular 1 Unit/0.01 Ml (Per Unit)) 10 unit IV X1 ONE Stop: 08/22/24 00:22 Lidocaine HCl (Lidocaine Hcl 1% 20 Ml Vial) 20 ml IM X1 ONE Stop: 08/22/24 00:50 Last Admin: 08/22/24 01:45 Dose: 20 ml Documented By: JEAN-PAUL Lidocaine HCl (Lidocaine Hcl 1% 20 Ml Vial) Confirm Administered Dose 20 ml .ROUTE .STK-MED ONE Stop: 08/22/24 00:46 Last Admin: 08/22/24 01:53 Dose: Not Given Documented By: JEAN-PAUL Non-Admin Reason: Duplicate Medication on eMAR Magnesium Sulfate (Magnesium Sulf Inj 0.5 Gm/Ml Vial 2 Ml) 1 gm IVP X1 ONE Stop: 08/21/24 20:49 Last Admin: 08/21/24 19:20 Dose: 1 gm Documented By: SHANIKA Midazolam HCl (Midazolam Inj 1 Mg/Ml Vial 2 Ml) 1 mg IV X1 ONE Stop: 08/21/24 20:37 Last Admin: 08/21/24 20:44 Dose: 1 mg Documented By: SHANIKA Sodium Bicarbonate (Sodium Bicarb Inj 8.4% Syr 50 Ml Syringe) 50 ml IV X1 ONE Stop: 08/21/24 19:09 Last Admin: 08/21/24 19:15 Dose: 50 ml Documented By: Admin: 08/21/24 19:07 Dose: 50 ml Documented By: SHANIKA Sodium Bicarbonate (Sodium Bicarb Inj 8.4% Syr 50 Ml Syringe) 50 ml IV X1 ONE Stop: 08/21/24 21:53 Last Admin: 08/21/24 22:14 Dose: 50 ml Documented By: JEAN-PAUL as above Consultations Consultation(s) initiated? (list below): Yes Consultation #1 (Physician, Specialty, Details): Case d/w medicine team who was made aware of the patient?s HPI, PMHx, lab and/or radiology results. Discussed treatment plan. Accepts patient for admission. Diagnosis Differential diagnosis altered mental status: other (see narrative) Most likely diagnosis given after review of the tests above:: see clinical impression below Admission Indicated Admission indicated?: indicated Admission Request Was there a request for admission?: Yes Admission Attestation Admission request attestation: Discussed case with [] from Hospitalist service regarding admission. Discussed patients ED course, exam findings, labs, and radiology results. The Hospitalist [agrees,declines] to accept the patient for admission. Disposition Plan Disposition Plan: Admit Critical Care Time Critical Care Time Critical Care Time: Yes Total Critical Care Time (min.): 60 Attestation: The high probability of sudden, clinically significant deterioration in the patient?s condition required the highest level of my preparedness to intervene urgently. ? The services I provided to this patient were to treat and/or prevent clinically significant deterioration. Services included the following: chart data review, reviewing nursing notes and/or old charts, documentation time, organization development consultant collaboration regarding findings and treatment options, medication orders and management, direct patient care, vital sign assessments and ordering, interpreting and reviewing diagnostic studies and lab tests. ? Aggregate critical care time includes only time during which I was engaged in work directly related to the patient?s care, as described above, whether at bedside or elsewhere in the Emergency Department. It did not include time spent performing other reported procedures or the services of residents, students, nurses or physician assistants. Discharge Plan Plan Patient Disposition: Admit Acute Care w/in Hospital Patient condition on transfer: Stable Prescriptions/Referrals Prescriptions/Med Rec: No Action metformin 1,000 mg tablet 500 mg PO BID aspirin 81 mg Tablet,Delayed Release (Dr/Ec) 81 mg PO QDAY gabapentin 300 mg Capsule 300 mg PO QDAY tamsulosin [Flomax] 0.4 mg Capsule 0.4 mg PO DAILY amiodarone 200 mg tablet 200 mg PO BID Patient Comments: TAKE 1 TABLET BY MOUTH TWICE A DAY FOR 30 DAYS bumetanide 1 mg tablet 2 mg PO QDAY Eliquis 2.5 mg tablet 2.5 mg PO BID ferrous sulfate [FeroSul] 325 mg (65 mg iron) tablet 325 mg PO Q OTHER DAY metoprolol succinate 25 mg tablet extended release 24 hr 12.5 mg PO DAILY Patient Comments: TAKE HALF TABLET ORALLY DAILY FOR HTN HOLD FOR SBP <100 OR HR <60 hydrocodone-acetaminophen 5-325 mg tablet 1 tab PO Q6H PRN (Reason: pain) Patient Comments: PLEASE SEE ATTACHED FOR DETAILED DIRECTIONS ascorbic acid (vitamin C) [Vitamin C] 500 mg tablet 500 mg PO BID multivitamin [Daily Multi-Vitamin] Tablet 1 tab PO QDAY famotidine 20 mg tablet 20 mg PO BID PRN (Reason: acid reflux) Qty: 60 0RF mirtazapine 15 mg tablet 30 mg PO QDAY Qty: 60 0RF Referrals: Jalil Le MD [Primary Care Provider] - In 1 week Problem List Clinical Impression: Symptomatic bradycardia, AMS (altered mental status), Acute hypotension, Acute hyperkalemia Patient/Caregiver Discharge Instructions Print Language: Lithuanian Stand Alone Forms: [facility] Award Info., Patient Portal Info Letter
[2024-08-21] MEDS: Sodium Bicarb Inj 8.4% SYR 50 ML SYRINGE IV ×3 (19:07→22:14)
[2024-08-21] MEDS: DOPamine/D5w 400 MG IVPB 400 MG/250 ML BAG 15 MG IV (19:15)
--- NOTE | 2024-08-21 19:15 | PC.NURSE ---
First pt contact 1915. in with pt prepairing to place a central line. Pt reportedly given versed in ambulance COMMODITY MANAGEMENT SPECIALIST. PT also placed on external pacing by EMS COMMODITY MANAGEMENT SPECIALIST in response to symptomatic bradycardia. Pt currently being paced.
[2024-08-21] MEDS: MAGNESIUM SULF 1 GM IVP (19:20)
--- NOTE | 2024-08-21 19:28 | XR_ITS ---
Examination: AP chest single view Technique one AP portable supine chest single view Exam date and time: August 21, 2024 1834 hrs. Comparison 01/02/2024 Indications: Post central line placement Findings: Right internal jugular central line tip SVC satisfactory position, no pneumothorax Bilateral pneumonia and/or pulmonary edema Impression: Right internal jugular central line tip satisfactory position
[2024-08-21 19:55] LABS: Basophils % (Auto) 0 % (0-2.5); Eosinophils % (Auto) 0 % (0-10); Hematocrit 26.8 % (41.0-53.0); Immature Granulocytes % (Auto) 1 % (0-0); Immature Granulocytes Auto 0.07 Thou/mm3 (0.00-0.00); Lymphocytes # (Auto) 1.2 Thou/mm3 (1.0-4.8); Lymphocytes % (Auto) 12 % (10-50); Mean Corpuscular Hemoglobin 25.5 pg (25.0-35.0); Mean Corpuscular Volume 83 fL (80-100); Monocytes # (Auto) 0.6 Thou/mm3 (0.0-0.8); Monocytes % (Auto) 6 % (0-12); Neutrophils # (Auto) 8.5 Thou/mm3 (1.8-7.7); Neutrophils % (Auto) 81 % (37-80); Nucleated Red Blood Cell % 0 /100 WBC (0); Platelet Count 203 Thou/mm3 (140-440); RDW Standard Deviation 64.2 fL (35.1-43.9); Red Blood Count 3.25 Miln/mm3 (4.50-5.90); White Blood Count 10.5 Thou/mm3 (3.8-10.6)
[2024-08-21 19:56] LABS: Hemoglobin 8.3 g/dL (13.5-16.0)
--- NOTE | 2024-08-21 20:11 | PC.RT ---
Cancelled x2 abg per Dr. Kennedy and submitted a VBG request. Note: Inadvertently entered Dr. Kmi as MD who cancelled abg orders. It was Dr. Kennedy
--- NOTE | 2024-08-21 20:15 | PC.NURSE ---
Pt care turned over to SOFTWARE SYSTEMS ARCHITECT at 2014.
[2024-08-21] MEDS: ALBUTEROL/IPRATROPIUM (Duoneb) RT SOL 3 ML NEBU (20:17)
[2024-08-21 20:33] LABS: Base Excess, Venous -10 (-3-3); O2 Saturation, Venous 89 % (96-97); PCO2, Venous 30 mmHg (36-56); PO2, Venous 66 mmHg (15-58); pH, Venous 7.32 (7.33-7.66)
[2024-08-21] MEDS: MIDAZOLAM INJ 1 MG/ML VIAL 2 ML IV (20:44)
[2024-08-21 20:54] LABS: INR 1.1 (0.9-1.3); Partial Thromboplastin Time 26.2 Seconds (22.0-36.0); Prothrombin Time 11.6 Seconds (9.0-12.2)
[2024-08-21] MEDS: Norepinephrine/D5W 8mg/250ml 8 MG/250 ML BAG 7.5 MG IV (21:17)
[2024-08-21 21:41] LABS: Alanine Aminotransferase 154 U/L (10-49); Albumin, Serum 3.8 gm/dL (3.4-4.8); Albumin/Globulin Ratio 1.3 (1.2-2.2); Alkaline Phosphatase 77 U/L (46-116); Anion Gap 19 (7-16); Aspartate Amino Transferase 76 U/L (0-34); BUN/Creatinine Ratio 13 Ratio (12-20); Bilirubin,Total 0.2 mg/dL (0.3-1.2); Blood Urea Nitrogen 82 mg/dL (9-23); Calcium 8.2 mg/dL (8.3-10.6); Calcium (Corrected) 8.4 mg/dL (8.5-10.1); Chloride 104 mMol/L (98-107); Creatinine (Component) 6.3 mg/dL (0.6-1.3); Globulin 2.9 gm/dL (2.3-3.5); Glucose 95 mg/dL (74-106); Magnesium 3.6 mg/dL (1.6-2.6); Osmolality,Calculated 298 (275-295); Phosphorous 7.7 mg/dL (2.4-5.1); Sodium 137 mMol/L (136-145); Total Protein 6.7 gm/dL (5.7-8.2); eGFR 9 See Note
[2024-08-21 21:43] LABS: Carbon Dioxide 14.4 mMol/L (20.0-31.0); Potassium 7.5 mMol/L (3.4-5.1)
--- NOTE | 2024-08-21 21:52 | XR_ITS ---
Examination: CT brain head without contrast. 2-D sagittal coronal reconstructions Date and time of exam:August 1027 hrs. Indications: Onset altered mental status today CTDI: vol (mGy):52 DLP: (mGycm):1036 Technique: Multiple CT axial sections of the brain have been obtained, 5 mm slice thickness. Contrast has not been administered. 2-D sagittal, coronal reconstructions have been obtained Low dose protocols were performed. One or more of the following dose reduction techniques were used; automated exposure control, adjustment of the mA and/or KV according to patient size, use of iterative reconstruction technique. Findings: No significant ventricular enlargement. Old infarct right parietal lobe Intra-axial or extra-axial hemorrhage density is not seen. No mass effect or midline shift Basal cisterns are not remarkable. Fourth ventricle is midline. Cranial vault intact. Chronic ethmoid sinusitis Impression: Negative for acute hemorrhage, mass effect or midline shift If symptoms persist, consider brain MRI follow-up
[2024-08-21] MEDS: DEXTROSE 50%-WATER INJ 50 ML SYRINGE IV (22:13)
[2024-08-21] MEDS: INSULIN HUM REGULAR 1 UNIT/0.01 ML (PER UNIT) 10 UNIT IV (22:13)
--- NOTE | 2024-08-21 22:49 | ESHP_ITS ---
<Statement entered by Nia López MD - 08/25/24 04:53> 64-year-old male with multiple comorbidities including hypertension, hyperlipidemia, type 2 diabetes mellitus with subsequent peripheral arterial disease status post bilateral BKA, CAD status post stent placement with subsequent heart failure with reduced EF with a EF 10 to 15% who presented with generalized weakness. In the ER, patient was noted to have sinus bradycardia with heart rate in the 40s however no evidence of any heart blocks. As a result, patient given 2 doses of atropine without response and noted to be hypotensive cardiology was consulted however stated to start patient on pressors for possible cardiogenic shock. During course of hospitalization, patient was also noted to have shock with differential diagnoses including cardiogenic shock given sinus bradycardia with hypotension and other differential diagnoses including hypovolemia as patient has been having decreased p.o. intake versus distributive secondary to septic etiology as patient noted to have urinary tract infection. In addition, patient also noted to have JADIEL likely ATN with subsequent high anion gap metabolic acidosis and hyperkalemia with a potassium of 7.5 and lactic acid of 7 for which patient started on IV fluid resuscitation and nephrology was consulted who recommended placing Vas-Cath for emergent hemodialysis. I also spoke with next of kin at bedside about goals of care and stated that they are okay with starting pressors, IV antibiotic therapy and hemodialysis however wanted patient to be DNR/DNI. Will respect her decision and continue medical management and admit the patient to ICU. Documentation for date of: 08/21/24 HPI History of Present Illness Chief complaint: Acute encephalopathy History of present illness: 64-year-old male patient with PMHx of HFrEF (EF 10-15%), hx of CAD post stents placement, HTN, HLD, CKD stage IIIb, IDDM II, bilateral BKA's, and A.fib, BIBA from SNF for worsening mentation, SOB, and generalized weakness for past 2 days. En route to ED patient's HR dropped to low 40s for which external paing was started after patient was given 2 doses of Atropine without response, at ED HR was 40 with BP 80/45, cardiology were consulted for concern of AV block and possible need for pacemaker placement, after cardiology eval no concern for av block and patient was noted to have junctional escape rhythm on underlying A.fib, recommendations to start patient on Levophed and low dose Dopamine and admit patient to ICU were made. At time of evaluation in ED, patient was somnelent, minimally responsive, history was obtained from who was at bedside. Per his he has been complaining of abdominal discomfort and decreased po intake for the past 2 days, denies having any fever, chills, SOB, cough, diarrhea but does note that patient's urine has been cloudy and sometimes bloody. Patient was started on Abx therapy for concern of knee amputation site infection, but on exam no signs of infection were noted on amputation site. Labs were noted for Hgb 8.3, K 7.5, HCO3 14, AG 19, BUN 85, Cr 6.2, eGFR 9 and lactate of 7, VBG pH 7.22, pCO2 35, and turbid UA noted for RBC of 5000 and WBC of 2000. Head CT was negative for acute bleed/stroke but showed Patient was given hyperkalemia cocktail at ED and nephro were consulted with recommendations to start HD for patient. Patient was admitted to ICU for pressors support and hemodialysis. PMHx-as above PSHx-as above Home meds-amiodarone, Bumex, insulin, Eliquis, gabapentin, [place], metformin, metoprolol, mirtazapine, tamsulosin Review of Systems Review of Systems ROS Unobtainable: unobtainable due to mental status Past Medical History Past Medical History NEUROLOGIC: Positive Neurological Disorders and Peripheral Neuropathy; Negative Cerebrovascular Accident, Transient Ischemic Attacks (TIA), Dementia, Alzheimer's Disease, Parkinson's Disease, Brain Tumor, Meningitis, Seizures, Epilepsy, Multiple Sclerosis, Cerebral Palsy, Amyotrophic Lateral Sclerosis (ALS/Sara Gehrig's), Guillain-Athol Syndrome, Spina Bifida, Paralysis, Eldridge's Palsy, Subdural Hematoma, Migraine, Head Trauma, Spinal Cord Injury or Traumatic Brain Injury CARDIAC: Positive Cardiac Disorders (cardiac arrest x 5 minutes- 12/04/22. irregular heart rate sometimes.), Myocardial Infarction (17 yrs ago), Coronary Artery Disease, Hypercholesterolemia, Congestive Heart Failure (EF 15%), Cellulitis, Hypertension and Hypotension; Negative Cardiac Arrhythmia, Atrial Fibrillation, Angina, Heart Murmur, Atherosclerotic Heart Disease, Peripheral Vascular Disease, Aneurysm, Congenital Heart Disease, Valvular Heart Disease, Rheumatic Fever, Cardiomyopathy, Edema, Pericarditis, Deep Vein Thrombosis or Varicose Veins RESPIRATORY: Positive Pneumonia; Negative Respiratory Disorders, Chronic Obstructive Pulmonary Disease (COPD), Asthma, Bronchitis, Emphysema, Pulmonary Fibrosis, Cystic Fibrosis, Tuberculosis, Pulmonary Embolism, Pulmonary Edema or Sleep Apnea GASTROINTESTINAL: Negative Gastrointestinal Disorders, Hepatitis, Cirrhosis, Pancreatitis, Celiac Disease, Gall Bladder Disease, Gastrointestinal Bleed, Esophageal Varices, Mclaughlin's Esophagus, Colitis, Ulcerative Colitis, Diverticulitis, Diverticulosis, Ulcer, Colorectal Cancer, Irritable Bowel, Crohn's Disease, Obstructive Bowel, Hiatal Hernia, Hemorrhoids, Gastroesophageal Reflux Disease or Obesity GENITOURINARY: Negative Genitourinary Disorders, Renal Disease, Kidney Stones, Polycystic Kidney Disease, Neurogenic Bladder, Inguinal Hernia, Dialysis, Prostate Cancer or Benign Prostatic Hyperplasia REPRODUCTIVE: Negative Breast Cancer or Testicular Cancer MUSCULOSKELETAL: Positive Musculoskeletal Disorders and Osteomyelitis (bilateral feet); Negative Muscular Dystrophy, Myasthenia Gravis, Marfan's Syndrome, Bone Cancer, Arthritis, Rheumatoid Arthritis, Osteoporosis, Degenerative Disk Disease, Gout, Scoliosis, Carpal Tunnel Syndrome, Fibromyalgia, Fractures, Degenerative Joint Disease or Poliovirus ENT: Negative History of ENT Problems, Cataracts, Glaucoma, Blind, Retinal Detachment, Macular Degeneration, Ear Infection, Deafness, Head Trauma or Eye Prosthesis ENDOCRINE: Positive Endocrine Disorders and Diabetes Mellitus Type 2; Negative Diabetes Mellitus Type 1, Hypoglycemia, Wally's Syndrome, Fluvanna's Disease, Hyperthyroidism, Hypothyroidism, Parathyroid Disease, Pituitary Disease, Systemic Lupus Erythematosus, Syndrome of Inappropriate Antidiuretic Hormone (SIADH), Adrenal Disease or Graves' Disease HEMATOLOGIC: Negative Blood Disorders, Anemia, Leukemia, Hemophilia, Thalassemia, Sickle Cell Disease or Clotting Problems PSYCHO/SOCIAL: Negative Psychiatric Problems, Schizophrenia, Recreational Drug Use, Bipolar Disorder, Depression, Anxiety, Behavior Problems, Self-Mutilation, Attention Deficit Disorder, Attention Deficit Hyperactivity Disorder, Post Traumatic Stress Disorder or Eating Disorder OTHER HISTORY: Positive Hospitalization and Chicken Pox; Negative Autoimmune Disease, Down Syndrome, Autism, Developmental Delay, Shingles, Falls, Blood Transfusions, Blood Transfusion Reaction, Anesthesia Reactions, Organ Transplant, Chemotherapy, Radiation Therapy, Hyperbaric Therapy, MRSA, VRSA, Vancomycin-Resistant Enterococci, Human Immunodeficiency Virus (HIV), Measles, Mumps, Rubella (Persian Measles), Pertussis, Clostridium Difficile, Cancer, Breast Cancer, Colorectal Cancer, Lung Cancer, Prostate Cancer or Testicular Cancer Family History FAMILY HISTORY: Positive Family Cardiac Disorders; Negative Family Psychiatric Problems, Family Respiratory Disorders, Family Gastrointestinal Problems, Family Cancer, Family Surgery or Family Anesthesia Reaction Surgical History SURGICAL: Positive Coronary Stent (x1- 17 yrs ago), Cardiac Catheterization and Angiogram; Negative Cardiac Surgery, Open Heart Surgery, Coronary Artery Bypass Graft, Valve Replacement, Vascular Surgery, Pacemaker, Auto Implanted Cardiovert Defib, Carotid Endarterectomy, Endocrine Surgery, Thyroidectomy, Ear Surgery, Tympanostomy Tube, Eye Surgery, Nose Surgery, Oral Surgery, Tonsillectomy, Adenoidectomy, Cochlear Implant, Corneal Transplant, Throat Surgery, Abdominal Surgery, Tracheostomy, Gastric Bypass Surgery, Gastrostomy, Bowel Surgery, Nephrectomy, Transurethral Resection, Joint Replacement, Amputation, Open Reduction Internal Fixation, Arthroscopy, Neurologic Surgery, Brain Shunt, Vasectomy or Organ Transplant Social History SMOKING STATUS: Never smoker SECOND HAND EXPOSURE: No Exam Vital Signs Pulse Resp BP Pulse Ox 58 L 17 106/49 L 98 08/21/24 22:00 08/21/24 22:00 08/21/24 22:00 08/21/24 22:00 Narrative Exam GEN: Critically ill, in acute distress, somnelent/ minimally responsive. HEENT: Normocephalic, atraumatic, dry mucous membranes, PERRLA. Heart: Bradycardic, regular rhythm, no murmurs. Lungs: Clear to auscultation with no wheezing or crackles. Abdomen: Soft, nondistended, nontender, positive bowel sounds. ?No guarding or rebound tenderness. Neurologic: Somnelent, responisve to verbal stimuli, able to protect airways, no gross neurological deficit, repetitive RUE jerky movement noted- baseline per -. Extremities: Bilateral BKA noted, no signs of infection noted, numerous digits in R hand missing Results: Labs 08/21/24 19:10 08/21/24 23:24 Labs: Short CBC 08/21/24 Range/Units 19:10 WBC 10.5 (3.8-10.6) Thou/mm3 Hgb 8.3 L (13.5-16.0) g/dL Hct 26.8 L (41.0-53.0) % Plt Count 203 D (140-440) Thou/mm3 BMP 08/21/24 19:10 Sodium 137 Potassium 7.5 H* Chloride 104 Carbon Dioxide 14.4 L* BUN 82 H Creatinine 6.3 H* Glucose 95 Calcium 8.2 L Liver Function 08/21/24 Range/Units 19:10 Total Bilirubin 0.2 L (0.3-1.2) mg/dL AST 76 H (0-34) U/L ALT 154 H (10-49) U/L Alkaline Phosphatase 77 (46-116) U/L Albumin 3.8 (3.4-4.8) gm/dL ABG Interpretation ABG results: 08/21/24 20:24 VBG pH 7.32 L VBG pCO2 30 L VBG pO2 66 H VBG Base Excess -10 L Quality Measures Quality Measures none Advance care planning discussed with:: patient and spouse Medications Home Medications and Allergies Home Medications ?Medication ?Instructions ?Recorded ?Confirmed ?Type metformin 1,000 mg tablet 500 mg PO BID 06/24/2007/20 History aspirin 81 mg tablet,delayed 81 mg PO QDAY 03/23/22 History release gabapentin 300 mg capsule 300 mg PO QDAY 01/01/2403/05 History tamsulosin 0.4 mg capsule (Flomax) 0.4 mg PO DAILY 07/20/24 History amiodarone 200 mg tablet 200 mg PO BID 07/20/2407/20 History apixaban 2.5 mg tablet (Eliquis) 2.5 mg PO BID 5 07/20/24 History ascorbic acid (vitamin C) 500 mg 500 mg PO BID 5 07/20/24 History tablet (Vitamin C) bumetanide 1 mg tablet 2 mg PO QDAY 07/20/24 History ferrous sulfate 325 mg (65 mg 325 mg PO Q OTHER DAY 07/20/24 History iron) tablet (FeroSul) hydrocodone 5 mg-acetaminophen 325 1 tab PO Q6H PRN pa in 07/20/24 07/20/24 History mg tablet metoprolol succinate 25 mg 12.5 mg PO DAILY 07/20/24 0 07/20/24 History tablet,extended release 24 hr multivitamin (Daily Multi-Vitamin 1 tab PO QDAY 07/20/24 History tablet) Allergies Allergy/AdvReac Type Severity Reaction Status Date / Time No Known Allergies Allergy Verified 07/20/24 11:39 Visit Medications Dopamine HCl/Dextrose (Intropin In D5w Ivpb) 400 mg in 250 mls @ 15 mls/hr IV .[id number] KENNY; Protocol Stop: 09/20/24 19:05 Last Titration: 08/21/24 22:00 Dose: 17 mcg/kg/min, 51 mls/hr Midazolam HCl (Versed Pf Inj In Ns Premix) 100 mg in 100 mls @ 1 mls/hr IV .Q24H PRN; Protocol PRN Reason: PER PROTOCOL Stop: 08/26/24 19:41 Morphine Sulfate (Morphine Sulfate Iv Drip 100mg/100ml) 100 mls @ 2 mls/hr IV Q50H PRN; Protocol PRN Reason: PAIN (COMFORT CARE) Stop: 08/26/24 20:37 Norepinephrine/Dextrose (Levophed In D5w 8mg/250ml) 8 mg in 250 mls @ 7.5 mls/hr IV .Q24H PRN; Protocol PRN Reason: PER PROTOCOL Stop: 09/20/24 21:08 Last Titration: 08/21/24 22:00 Dose: 0.05 mcg/kg/min, 7.5 mls/hr Discontinued Medications Albuterol/Ipratropium (Albuterol/Ipratropium (Duoneb) Rt Jing 3 Ml Nebu) 3 ml INH X1 ONE Stop: 08/21/24 19:09 Last Admin: 08/21/24 20:14 Dose: Not Given Calcium Chloride (Calcium Chloride 10% Inj 10 Ml Syrg) 10 ml IV X1 ONE Stop: 08/21/24 19:09 Last Admin: 08/21/24 19:12 Dose: Not Given Calcium Chloride (Calcium Chloride 10% Inj 10 Ml Syrg) 10 ml IV X1 ONE Stop: 08/21/24 19:10 Last Admin: 08/21/24 19:05 Dose: 10 ml Calcium Chloride (Calcium Chloride 10% Inj 10 Ml Syrg) 10 ml IV X1 ONE Stop: 08/21/24 21:53 Last Admin: 08/21/24 22:13 Dose: 10 ml Dextrose (Dextrose 50%-Water Inj 50 Ml Syringe) 50 ml IV X1 ONE Stop: 08/21/24 21:53 Last Admin: 08/21/24 22:13 Dose: 50 ml Magnesium Sulfate (Magnesium Sulfate Ivpb) 2 gm in 50 mls @ 25 mls/hr IV X1 ONE Stop: 08/21/24 21:18 Last Admin: 08/21/24 21:09 Dose: Not Given Insulin Human Regular (Insulin Hum Regular 1 Unit/0.01 Ml (Per Unit)) 10 unit IV X1 ONE Stop: 08/21/24 21:53 Last Admin: 08/21/24 22:13 Dose: 10 unit Magnesium Sulfate (Magnesium Sulf Inj 0.5 Gm/Ml Vial 2 Ml) 1 gm IVP X1 ONE Stop: 08/21/24 20:49 Last Admin: 08/21/24 19:20 Dose: 1 gm Midazolam HCl (Midazolam Inj 1 Mg/Ml Vial 2 Ml) 1 mg IV X1 ONE Stop: 08/21/24 20:37 Last Admin: 08/21/24 20:44 Dose: 1 mg Sodium Bicarbonate (Sodium Bicarb Inj 8.4% Syr 50 Ml Syringe) 50 ml IV X1 ONE Stop: 08/21/24 19:09 Last Admin: 08/21/24 19:15 Dose: 50 ml Sodium Bicarbonate (Sodium Bicarb Inj 8.4% Syr 50 Ml Syringe) 50 ml IV X1 ONE Stop: 08/21/24 21:53 Last Admin: 08/21/24 22:14 Dose: 50 ml Assessment & Plan Plan 64-year-old male patient with PMHx of HFrEF (EF 10-15%), hx of CAD post stents placement, HTN, HLD, CKD stage IIIb, IDDM II, bilateral BKA's, and A.fib, admitted to ICU for hypovolemic/cardiogenic shock, and acute on chronic renal failure requiring pressors support and hemodialysis. LEG BREAKER #Acute encephalopathy 2/[address] negative for acute hemorrhage/stroke. #Chronic right parietal stroke Out patient follow up with neuro recommended. Continue home medications pending med rec. [facility] #Shock Likely combined hypovolemic/Cardiogenic. Patient dehydrated leading to hypovolemia leading to renal failure and hyperkalemia causing bradycardia and cardiogenic shock. Manage Hyperkalemia. Patient given 500cc of D5NS- Gentle hydration in setting of severe HFrEF. Continue patient on Levophed/ Dopamine. Strict I&O's Wean off pressors as tolerated. Resp #Acute hypoxic respiratory failure. 2/2 Cardiogenic shock Management in [facility] oxygen as needed. Renal #Acute on chronic renal failure In setting of Hypovolemia 2/2 UTI Gentle hydration with 500cc of ivf. Nephro consulted, recs appreciated. #HyperKalemia #Hyperphosphatemia #Anion gap metabolic acidosis #Lactic acidosis In setting of acute renal failure and uremia. Patient given hyperkalemia cocktail. Patient started on Lokelma. Patient started on HD. F/U daily renal panel. Nephrology consulted, recs appreciated. ID #Complicated UTI -Patient started on Ceftriaxone 2gm daily. -F/U Bcx/Ucx. Heme #Chronic anemia In setting of MAKAYLA, and anemia of chronic disease -Hemodynamically stable, no indication to transfuse at the moment. -Transfuse Prbc for Hgb<8 -F/U iron panel -F/U daily CBC Endo #IDDM II -Maintain BG between 140-180 ideally -Continue home glargine 15units BID -Patient started on ISS -Q6hr BSG -F/U HbA1c GI #Elevated LFT's In setting of cardiogenic shock Continue to monitor daily LFTs. DVT prophylaxis: Heparin SC BID Diet: Cardiac Prather: + Lines: PIV, [facility]. CODE STATUS: DNR Reason for hospitalization/disposition: Acute encephalopathy. Plan of care discussed with attending Dr. Maribel Carvajal PGY-3
[2024-08-21 23:38] LABS: Base Excess, Venous -12 (-3-3); O2 Saturation, Venous 95 % (96-97); PCO2, Venous 35 mmHg (36-56); PO2, Venous 85 mmHg (15-58); pH, Venous 7.22 (7.33-7.66)
[2024-08-22] VITALS (163 sets, daily range): BP systolic 51–149; BP diastolic 29–108; PULSE 59–93; RESP 9–27; TEMP 36.2–36.8; O2SAT 73–100; BMI 30.7
[2024-08-22 00:07] LABS: Ammonia 11 uMol/L (11-32)
[2024-08-22 00:08] LABS: Anion Gap 24 (7-16); BUN/Creatinine Ratio 14 Ratio (12-20); Blood Urea Nitrogen 85 mg/dL (9-23); Calcium 9.9 mg/dL (8.3-10.6); Calcium (Corrected) 9.9 mg/dL (8.5-10.1); Chloride 101 mMol/L (98-107); Creatinine (Component) 6.2 mg/dL (0.6-1.3); Glucose 249 mg/dL (74-106); Osmolality,Calculated 311 (275-295); Phosphorous 8.3 mg/dL (2.4-5.1); Sodium 139 mMol/L (136-145); eGFR 9 See Note
[2024-08-22 00:12] LABS: Carbon Dioxide 14.5 mMol/L (20.0-31.0)
[2024-08-22 00:14] LABS: Potassium 6.6 mMol/L (3.4-5.1)
[2024-08-22 00:47] LABS: Collection Type, Urine Catheter; Squamous Epithelial Cell,Urine 0 /hpf (0-5)
[2024-08-22] MEDS: DOPamine/D5w 400 MG IVPB 400 MG/250 ML BAG 39 MG IV (01:00)
--- NOTE | 2024-08-22 01:11 | ESCONSULT_ITS ---
RE: RAFA SIDDIQI : 1960 DATE OF CONSULTATION: 08/21/2024 CONSULTING PHYSICIAN: Hospitalist, emergency room physician. REASON FOR CONSULTATION: Severe bradycardia, possible hyperkalemia CHIEF COMPLAINT: Altered mental status and weakness for the last 2 or 3 days. HISTORY OF PRESENT ILLNESS: The patient is well known to me. He has longstanding history of ischemic cardiomyopathy, chronic systolic heart failure HFrEF, ejection fraction 10% to 15% by most recent echo in 05/2024. He had an initial stent placement in [place] in 2008. Subsequently, most recent angiogram was in 2021 when he had severe three-vessel disease, diffuse distal vessel disease, not suitable for stents or angioplasty because of diffuse multivessel CAD. He also has chronic kidney disease stage IIIB, bilateral [id number] amputations most recently hospital discharge in 07/2024 when he had amputation. He was in the [facility], came to the hospital because of severe shortness of breath, fatigue. Ambulance found his heart rate to be very low 40s, given atropine, did not respond. External pacemaker was started. The patient was hypotensive. An emergency room physician did give vasopressor dopamine 19 mcg per kilogram, maintaining blood pressure 90/60. The external pacemaker was still used. I came to the emergency room and turned the external pacemaker down. The patient had underlying rhythm of 59 to 60 heart rate, underlying atrial fibrillation with junctional escape rhythm. The patient is stable now hemodynamically with vasopressors. Recommended the patient to be started on Levophed plus dopamine lower dose rather than high-dose dopamine and to monitor the patient closely. The lab data did come out showing that the patient has hyperkalemia, which probably did cause bradycardia. His chemistry panel shows creatinine level of 6.3, acute kidney injury. In July, creatinine was only 2.4, BUN 52 now 82, and potassium is 7.5. The rest of the lab shows his GFR is only 9. This could be the cause of his severe bradycardia and hypotension because of severe hyperkalemia. PAST MEDICAL HISTORY: Ischemic cardiomyopathy, congestive heart failure, severe diffuse multivessel CAD by angiogram, __ bypass revascularization, extensive peripheral arterial disease with bilateral lower extremity amputations and history of atrial fibrillation. MEDICATIONS: The patient is at half-way, he is on, 1. Bumetanide 1 mg daily. 2. Eliquis 2.5 twice daily. 3. Metoprolol succinate 20 mg daily. 4. Amiodarone 200 mg twice daily. SOCIAL HISTORY: The patient is living in half-way . Last visit in my office was 6 months ago. Since then, he was hospitalized multiple times in the hospital, most recently only last month. REVIEW OF SYSTEMS: Cardiovascular: No chest pain reported. Gastrointestinal: No nausea or vomiting. SANITARY INSPECTOR: The patient now altered mental status,. Genitourinary: No history of frequency or dysuria. PHYSICAL EXAMINATION: General: Well-nourished. Chronically ill acutely ill male who appears older than stated age. Vital Signs: His blood pressure is 106/49, pulse rate 60, respirations 17, temperature normal. Oxygen saturation 98%. HEENT: Head is atraumatic. Neck: Supple. No JVD. Chest: Chest symmetrical. Lungs: Decreased breath sounds at the bases. Heart: S1, S2, irregular atrial fibrillation. Abdomen: Thin and soft. Extremities: Evidence of bilateral [id number] amputation _ recent high risk for right BKA, appears to be healing well, but there is some redness there. DIAGNOSTIC DATA: Other lab data showed cardiac enzymes. Troponin was not obtained yet. Did not see any results, but EKG showed evidence of atrial fibrillation, nonspecific ST changes, left bundle branch block hyperkalemia. ASSESSMENT: 1. Severe symptomatic bradycardia secondary to hyperkalemia. 2. Acute kidney injury, acute renal failure with hyperkalemia. 3. Chronic kidney disease prior to admission. 4. Ischemic cardiomyopathy with chronic systolic heart failure HFrEF ejection fraction of 10% to 15% by recent echo in 05/2024. 5. Status post recent [id number] amputation, recovering with high mortality rates. 6. Atrial fibrillation. 7. Ventricular dysrhythmias, previous admission and atrial fibrillation requiring amiodarone. RECOMMENDATIONS: The patient's prognosis is extremely poor. The patient should be continued on hypokalemia to be corrected. The patient will require dialysis. Again, discussed about all these issues with the family to discuss about the core status and also comfort measures. The patient has multiorgan failure now with end-stage heart disease ejection fraction 20 % probably not expected to survive even with dialysis, but any event, the patient has a reversible cause for severe bradycardia. Hyperkalemia correction should be given with Kayexalate and also hemodialysis as practically as soon as possible and the patient already received calcium gluconate and other measures and temporary measures for hyperkalemia treatment. I would like to thank for referring this patient for cardiovascular evaluation. We will be glad to follow the patient with you tomorrow. DT: 23:20:10 TT: 00:16:00 Ref: [id number] - TID: [id number] MTDD
[2024-08-22 01:44] LABS: Bilirubin,Urine Negative (Negative); Blood,Urine 3+ (Negative); Color,Urine Dark-Brown (Lt Yel-Yel); Glucose, Urine Negative (Negative); Ketones,Urine Negative (Negative); Leukocyte Esterase,Urine Positive (Negative); Nitrite,Urine Negative (Negative); PH,Urine 5.5 (5.0-7.0); Protein,Urine 2+ (Neg - Trace); RBC,Urine 5180 /hpf (0-3); Specific Gravity,Urine 1.017 (1.001-1.035); Urobilinogen,Urine Negative mg/dL (0.0-1.0); WBC,Urine 1928 /hpf (0-5)
[2024-08-22] MEDS: LIDOCAINE HCL 1% 20 ML VIAL IM (01:45)
[2024-08-22 01:47] LABS: Clarity,Urine Turbid (Clear/Hazy)
[2024-08-22 02:36] LABS: Reflex Lactate? Y
--- NOTE | 2024-08-22 02:46 | XR_ITS ---
Examination: AP chest single view Technique one AP portable semiupright chest single view Exam date and time: 06/24/2024 at 0017 hrs. Indications: Left-sided chest pain today. Findings: Mild prominence left ventricle Moderate vascular congestion. Suspicious for early right perihilar pneumonia Impression: Suspicious for early right perihilar pneumonia
[2024-08-22] MEDS: DEXTROSE 50%-WATER INJ 50 ML SYRINGE IV (02:54)
[2024-08-22] MEDS: INSULIN HUM REGULAR 1 UNIT/0.01 ML (PER UNIT) 10 UNIT IV (02:54)
[2024-08-22] MEDS: cefTRIAXone 2 GM in SODIUM CHLORIDE 0.9% (Popper) 50 ML IV (03:10)
[2024-08-22] MEDS: DEXTROSE 5%-0.45% NS 500 ML 250 ML IV (03:12)
[2024-08-22 03:48] LABS: Lactic Acid, 3 HR 7.1 mMol/L (0.4-2.0)
[2024-08-22 04:44] LABS: Base Excess -12 (-3-3); HCO3 14 mEq/L (20-26); Inspired Oxygen, FIO2 21 %; O2 Saturation 97 % (91-98); PCO2 31 mmHg (32.0-48.0); PO2 92 mmHg (83-108); pH, Arterial 7.26 (7.35-7.45)
[2024-08-22 04:50] LABS: Allen Test Not Performed; Puncture Site Right Brachial
[2024-08-22 05:22] LABS: Iron 42 mcg/dL (65-175); Percent Iron Saturation 17 % (20-55); Total Iron Binding Capacity 235 mcg/dL (250-425); Unsaturated Iron Binding 193 (225-295)
--- NOTE | 2024-08-22 06:03 | PD.RESPROC ---
Procedures Procedure Date / Time 08/22/24 0603 Central Line Placement Left IJ: Indication(s): other (emergent dialysis ) Informed consent obtained: from patient Time out done, and the following verified: correct patient, side and site, procedure and patient position Patient placed on monitor/pulse ox: Yes Hand Hygiene: alcohol-based hand rub Max Sterile Barrier Techniques used: cap, mask, sterile gown and sterile gloves Central line prep: Chlorhexidine scrub Local anesthesia used: lidocaine 1% Amount of anesthesia used (mL): 5 Sterile Technique if Ultrasound used, including sterile gel: yes Central line lumen inserted: triple Post procedure: sutured in place, good blood return, all ports aspirated, flushed, capped and sterile dressing applied Post procedure x-ray: tip of catheter in good position and no pneumothorax seen Patient tolerated procedure: well EBL(ml): 5 Complications: none Procedure comment: Tri-flow lumen catheter placed for dialysis catheter
--- NOTE | 2024-08-22 06:06 | PD.EVENT ---
Documentation for date of: 08/22/24 Event Note Event Note: Attending Attestation: 64-year-old male with multiple comorbidities including hypertension, hyperlipidemia, type 2 diabetes mellitus with subsequent peripheral arterial disease status post bilateral BKA, CAD status post stent placement with subsequent heart failure with reduced EF with a EF 10 to 15% who presented with generalized weakness. In the ER, patient was noted to have sinus bradycardia with heart rate in the 40s however no evidence of any heart blocks. As a result, patient given 2 doses of atropine without response and noted to be hypotensive cardiology was consulted however stated to start patient on pressors for possible cardiogenic shock. During course of hospitalization, patient was also noted to have shock with differential diagnoses including cardiogenic shock given sinus bradycardia with hypotension and other differential diagnoses including hypovolemia as patient has been having decreased p.o. intake versus distributive secondary to septic etiology as patient noted to have urinary tract infection. In addition, patient also noted to have JADIEL likely ATN with subsequent high anion gap metabolic acidosis and hyperkalemia with a potassium of 7.5 and lactic acid of 7 for which patient started on IV fluid resuscitation and nephrology was consulted who recommended placing Vas-Cath for emergent hemodialysis. I also spoke with next of kin at bedside about goals of care and stated that they are okay with starting pressors, IV antibiotic therapy and hemodialysis however wanted patient to be DNR/DNI. Will respect her decision and continue medical management and admit the patient to ICU.
[2024-08-22] MEDS: INSULIN LISPRO (AdmeLOG) 1 UNIT/0.01 ML UNIT SC (06:13)
[2024-08-22] MEDS: Norepinephrine/D5W 8mg/250ml 8 MG/250 ML BAG 7.5 MG IV (06:45)
[2024-08-22 06:47] LABS: Lactate (Lactic Acid) 5.1 mMol/L (0.4-2.0)
[2024-08-22] MEDS: HEPARIN SOD INJ 1000 UNIT/ML VIAL 10 ML 3000 UNIT INDWELLCAT ×2 (06:50→21:35)
[2024-08-22] MEDS: DOPamine/D5w 400 MG IVPB 400 MG/250 ML BAG 26.955 MG IV (06:51)
[2024-08-22 07:25] LABS: Basophils % (Auto) 0 % (0-2.5); Eosinophils % (Auto) 0 % (0-10); Hematocrit 27.2 % (41.0-53.0); Immature Granulocytes % (Auto) 1 % (0-0); Immature Granulocytes Auto 0.06 Thou/mm3 (0.00-0.00); Lymphocytes # (Auto) 0.5 Thou/mm3 (1.0-4.8); Lymphocytes % (Auto) 4 % (10-50); Mean Corpuscular HGB Conc 31.6 g/dl (31.0-37.0); Mean Corpuscular Volume 82 fL (80-100); Monocytes # (Auto) 0.6 Thou/mm3 (0.0-0.8); Monocytes % (Auto) 4 % (0-12); Neutrophils # (Auto) 11.5 Thou/mm3 (1.8-7.7); Neutrophils % (Auto) 91 % (37-80); Nucleated Red Blood Cell % 0 /100 WBC (0); Platelet Count 213 Thou/mm3 (140-440); RDW Standard Deviation 63.3 fL (35.1-43.9); Red Blood Count 3.31 Miln/mm3 (4.50-5.90); White Blood Count 12.5 Thou/mm3 (3.8-10.6)
[2024-08-22 07:48] LABS: Alanine Aminotransferase 162 U/L (10-49); Albumin, Serum 3.8 gm/dL (3.4-4.8); Albumin/Globulin Ratio 1.2 (1.2-2.2); Alkaline Phosphatase 83 U/L (46-116); Anion Gap 16 (7-16); Aspartate Amino Transferase 74 U/L (0-34); BUN/Creatinine Ratio 13 Ratio (12-20); Bilirubin,Total 0.3 mg/dL (0.3-1.2); Blood Urea Nitrogen 54 mg/dL (9-23); Calcium 8.8 mg/dL (8.3-10.6); Carbon Dioxide 21.1 mMol/L (20.0-31.0); Chloride 99 mMol/L (98-107); Creatinine (Component) 4.2 mg/dL (0.6-1.3); Globulin 3.1 gm/dL (2.3-3.5); Glucose 249 mg/dL (74-106); Osmolality,Calculated 294 (275-295); Potassium 5.3 mMol/L (3.4-5.1); Sodium 136 mMol/L (136-145); Total Protein 6.9 gm/dL (5.7-8.2); eGFR 15 See Note
[2024-08-22 08:18] LABS: Hemoglobin 8.6 g/dL (13.5-16.0)
--- NOTE | 2024-08-22 08:19 | PC.NURSE ---
STEPHEN ARRIAGA, 10HRS, [employer]
[2024-08-22 08:34] LABS: Hepatitis A Antibody IgM Non Reactive (Non React); Hepatitis B Core Antibody IgM Non Reactive (Non React); Hepatitis B Surface Ab NonReact(Not Immune) (Immune); Hepatitis B Surface Antigen Non Reactive (Non React); Hepatitis C Antibody Non Reactive (Non React)
[2024-08-22 09:22] LABS: Reflex Lactate? Y
--- NOTE | 2024-08-22 10:04 | XR_ITS ---
EXAMINATION: US renal BI HISTORY: hematuria COMPARISON: 04/09/2024, CT abdomen pelvis FINDINGS: Right kidney 10.1 cm long. Scarring. Increased cortical echogenicity. No hydronephrosis. No obstructive nephrolithiasis. No focal lesion. Left kidney 10.6 cm length. Scarring. Increased cortical echogenicity. Inferior pole 1.0 cm round anechoic nonvascular lesion, likely simple cyst. No hydronephrosis. No obstructive nephrolithiasis. Bladder decompressed in the setting of Prather catheter with Prather balloon identified. Prostate is heterogeneous measuring up to 57 cc. There are internal hyper echogenicities, as well as a rounded 1.5 cm peripheral hypoechogenicity. IMPRESSION: 1. Findings suggestive of medical renal disease. 2. No hydronephrosis or obstructive urolithiasis identified. 3. Prather catheter present. Bladder is decompressed, limiting evaluation. 4. Enlarged, heterogeneous prostate with coarse calcifications and hypoechoic nodule. This may represent benign prostatic hyperplasia. Prostate cancer cannot be excluded on ultrasound.
--- NOTE | 2024-08-22 10:15 | PD.RESCONSUL ---
HPI Data of Consult Requesting Physician: Maxine Oviedo MD Admitting Provider: Nia López MD Attending Provider: Maxine Oviedo MD Primary Care Provider: Jalil Le MD Consult Narrative Reason for consult: Acute on chronic kidney disease History of present illness: Patient is disoriented, drowsy and not able to provide history, so most of the history is taken from chart review. Mr. Galdamez is a 64-year-old male with significant past medical history of hypertension, insulin-dependent diabetes mellitus, CAD s/p PCI, HFrEF [EF 10 to 15%], CKD stage III, bilateral below-knee amputations, atrial fibrillation living in alf facility was brought to the hospital with chief complaints of worsening mentation, shortness of breath and generalized weakness for the past 2 days. Patient was noted to have heart rate dropped to 40s during transit time in the ambulance for which patient was externally paced and 2 doses of atropine was given without response. In the ED, patient was found to have heart rate of 40 with blood pressure of 80/45 mmHg for which cardiology was consulted for suspected AV block. Per inside steward/stewardess, there is no concern for AV block and patient was found to have junctional escape rhythm with underlying atrial fibrillation and recommended to start on Levophed and low-dose dopamine. Patient was admitted to ICU for further care. Also noted patient had decreased p.o. intake 2 days before the day of admission and abdominal discomfort. ED Course: -Initial vitals were blood pressure 111/58 mmHg, SpO2 79% with 15 L oxygen -Labs significant for Hb 8.3, potassium 7.5, bicarb 14, anion gap 19, BUN 85, creatinine 6.2, lactate 7. Urine analysis showed 5000 RBC and 2000 WBC. -Head CT was negative for acute hemorrhage and infarct. -Patient was admitted for shock requiring vasopressors Nephrology was consulted for acute on chronic kidney injury. Overnight patient received 2 hours of conventional hemo-dialysis session due to metabolic acidosis and hyperkalemia. Decided to proceed with CRRT as patient currently on pressors. cc:: cc: Maxine Oviedo MD Review of Systems Review of Systems ROS Unobtainable: unobtainable due to medical condition Exam Vital Signs Temp Pulse Resp BP Pulse Ox O2 Del Method O2 Flow Rate 97.5 F 80 20 124/77 92 L Oxy Mask 3 08/22/24 08:13 08/22/24 08:13 08/22/24 08:13 08/22/24 08:13 08/22/24 08:13 08/22/24 01:19 08/22/24 08:13 Narrative Exam General: Drowsy, able to follow some commands HEENT: Normocephalic, atraumatic, mucous membranes moist. Heart: Regular rate and rhythm, no murmurs. Lungs: Clear to auscultation with no wheezing or crackles. Abdomen: Soft, nondistended, nontender, positive bowel sounds. ?No guarding or rebound tenderness. + vascath Neurologic: patient able to move all 4 extremities. Drowsy Extremities: No edema. Skin: No rash or ecchymoses. Results Labs 08/22/24 07:05 08/22/24 07:05 Labs: Short CBC 08/21/24 08/22/24 Range/Units 19:10 07:05 WBC 10.5 12.5 H (3.8-10.6) Thou/mm3 Hgb 8.3 L 8.6 L (13.5-16.0) g/dL Hct 26.8 L 27.2 L (41.0-53.0) % Plt Count 203 D 213 (140-440) Thou/mm3 BMP 08/21/24 08/21/24 08/22/24 19:10 23:24 07:05 Sodium 137 139 136 Potassium 7.5 H* 6.6 H* D 5.3 H D Chloride 104 101 99 Carbon Dioxide 14.4 L* 14.5 L* 21.1 BUN 82 H 85 H 54 H Creatinine 6.3 H* 6.2 H* 4.2 H* D Glucose 95 249 H D 249 H Calcium 8.2 L 9.9 D 8.8 Liver Function 08/21/24 08/21/24 08/22/24 Range/Units 19:10 23:24 07:05 Total Bilirubin 0.2 L 0.3 (0.3-1.2) mg/dL AST 76 H 74 H (0-34) U/L ALT 154 H 162 H (10-49) U/L Alkaline Phosphatase 77 83 (46-116) U/L Albumin 3.8 4.0 3.8 (3.4-4.8) gm/dL Urine 08/21/24 Range/Units 23:40 Urine Color Dark-Brown (Lt Yel-Yel) Urine Clarity Turbid A (Clear/Hazy) Urine pH 5.5 (5.0-7.0) Ur Specific Cobb 1.017 (1.001-1.035) Urine Protein 2+ A (Neg - Trace) Urine Glucose (UA) Negative (Negative) ABG Interpretation ABG results: 08/21/24 08/21/24 08/22/24 20:24 23:24 04:35 ABG pH 7.26 L ABG pCO2 31 L ABG pO2 92 ABG HCO3 14 L ABG O2 Saturation 97 ABG Base Excess -12 L VBG pH 7.32 L 7.22 L VBG pCO2 30 L 35 L VBG pO2 66 H 85 H VBG Base Excess -10 L -12 L Quality Measures Quality Measures none Advance care planning discussed with:: other Medications Home Medications and Allergies Home Medications ?Medication ?Instructions ?Recorded ?Confirmed ?Type metformin 1,000 mg tablet 500 mg PO BID 06/24/20 07/20/24 History aspirin 81 mg tablet,delayed 81 mg PO QDAY 03/23/22 07/20/24 History release gabapentin 300 mg capsule 300 mg PO QDAY 01/01/24 07/20/24 History tamsulosin 0.4 mg capsule (Flomax) 0.4 mg PO DAILY 01/01/24 07/20/24 History amiodarone 200 mg tablet 200 mg PO BID 07/20/24 07/20/24 History apixaban 2.5 mg tablet (Eliquis) 2.5 mg PO BID 07/20/24 07/20/24 History ascorbic acid (vitamin C) 500 mg 500 mg PO BID 07/20/24 07/20/24 History tablet (Vitamin C) bumetanide 1 mg tablet 2 mg PO QDAY 07/20/24 07/20/24 History ferrous sulfate 325 mg (65 mg 325 mg PO Q OTHER DAY 07/20/24 07/20/24 History iron) tablet (FeroSul) hydrocodone 5 mg-acetaminophen 325 1 tab PO Q6H PRN pain 07/20/24 07/20/24 History mg tablet metoprolol succinate 25 mg 12.5 mg PO DAILY 07/20/24 07/20/24 History tablet,extended release 24 hr multivitamin (Daily Multi-Vitamin 1 tab PO QDAY 07/20/24 07/20/24 History tablet) Allergies Allergy/AdvReac Type Severity Reaction Status Date / Time No Known Allergies Allergy Verified 07/20/24 11:39 Visit Medications Acetaminophen (Acetaminophen 325 Mg Tablet) 650 mg PO Q4HR PRN PRN Reason: PAIN SCALE 1-3 (mild Stop: 09/20/24 23:36 Acetaminophen (Acetaminophen Supp 650 Mg Supp) 650 mg AR Q4HR PRN PRN Reason: PAIN SCALE 1-3 (mild Stop: 09/20/24 23:36 Al Hydrox/Mg Hydrox/Simethicone (Mg Hyd/Al Hyd/Stephy (Maalox Reg) Susp 30 Ml Udc) 30 ml PO Q4HR PRN PRN Reason: Heartburn or Upset Stomach Stop: 09/20/24 23:36 Dextrose (Dextrose 50%-Water Inj 50 Ml Syringe) 25 ml IV Q15MIN PRN PRN Reason: BG 50-70 responsive npo pt Stop: 09/21/24 04:19 Dextrose (Dextrose 50%-Water Inj 50 Ml Syringe) 50 ml IV Q15MIN PRN PRN Reason: BG <50 OR BG <70 & pt unresponsive Stop: 09/21/24 04:19 Heparin Sodium (Porcine) (Heparin Sod Inj 5000 Unit/Ml Vial) 5,000 unit SC BID KENNY Stop: 09/05/24 08:59 Heparin Sodium (Porcine) (Heparin Sod Inj 1000 Unit/Ml Vial 10 Ml) 3,000 unit INDWELLCAT PRN PRN PRN Reason: DIALYSIS Stop: 09/05/24 05:33 Last Admin: 08/22/24 06:50 Dose: 3,000 unit Midazolam HCl (Versed Pf Inj In Ns Premix) 100 mg in 100 mls @ 1 mls/hr IV .Q24H PRN; Protocol PRN Reason: PER PROTOCOL Stop: 08/26/24 19:41 Morphine Sulfate (Morphine Sulfate Iv Drip 100mg/100ml) 100 mls @ 2 mls/hr IV Q50H PRN; Protocol PRN Reason: PAIN (COMFORT CARE) Stop: 08/26/24 20:37 Albumin Human (Albuminar-25 Ivpb) 25 gm in 100 mls @ 100 mls/min IV PRN PRN PRN Reason: DIALYSIS Dopamine HCl/Dextrose (Intropin In D5w Ivpb) 400 mg in 250 mls @ 11.231 mls/hr IV .[id number] KENNY; Protocol Stop: 09/20/24 19:05 Last Titration: 08/22/24 07:45 Dose: 8 mcg/kg/min, 17.97 mls/hr Norepinephrine/Dextrose (Levophed In D5w 8mg/250ml) 8 mg in 250 mls @ 5.616 mls/hr IV .Q24H PRN; Protocol PRN Reason: PER PROTOCOL Stop: 09/20/24 21:08 Last Titration: 08/22/24 07:00 Dose: 0.07 mcg/kg/min, 7.862 mls/hr Ceftriaxone Sodium/Dextrose (Rocephin/D5w 2gm) 2 gm in 50 mls @ 100 mls/hr IV QDAY@2100 KENNY Stop: 08/29/24 20:59 Insulin Glargine (Insulin Glargine (Lantus) 5 Unit/0.05 Ml (Per 5 Units)) 15 unit SC BID [facility] Stop: 09/21/24 08:59 Insulin Human Lispro (Insulin Lispro (Admelog) 1 Unit/0.01 Ml Unit) 0 unit SC Q6HR KENNY; Protocol Stop: 09/21/24 05:59 Last Admin: 08/22/24 06:13 Dose: 4 unit Magnesium Hydroxide (Milk Of Magnesia Susp 30 Ml Udc) 30 ml PO QDAY PRN PRN Reason: CONSTIPATION Stop: 09/20/24 23:36 Pharmacy Consult (Pharmacy To Consult Patient) 1 each XX PRN PRN PRN Reason: Starting 24Hr Continuous/Intermittent Dialysis Stop: 09/21/24 08:09 Discontinued Medications Al Hydrox/Mg Hydrox/Simethicone (Mg Hyd/Al Hyd/Stephy (Maalox Reg) Susp 30 Ml Udc) 30 ml PO Q4HR PRN PRN Reason: Heartburn or Upset Stomach Stop: 09/20/24 23:36 Albuterol/Ipratropium (Albuterol/Ipratropium (Duoneb) Rt Jing 3 Ml Nebu) 3 ml INH X1 ONE Stop: 08/21/24 19:09 Last Admin: 08/21/24 20:14 Dose: Not Given Calcium Chloride (Calcium Chloride 10% Inj 10 Ml Syrg) 10 ml IV X1 ONE Stop: 08/21/24 19:09 Last Admin: 08/21/24 19:12 Dose: Not Given Calcium Chloride (Calcium Chloride 10% Inj 10 Ml Syrg) 10 ml IV X1 ONE Stop: 08/21/24 19:10 Last Admin: 08/21/24 19:05 Dose: 10 ml Calcium Chloride (Calcium Chloride 10% Inj 10 Ml Syrg) 10 ml IV X1 ONE Stop: 08/21/24 21:53 Last Admin: 08/21/24 22:13 Dose: 10 ml Dextrose (Dextrose 50%-Water Inj 50 Ml Syringe) 50 ml IV X1 ONE Stop: 08/21/24 21:53 Last Admin: 08/21/24 22:13 Dose: 50 ml Dextrose (Dextrose 50%-Water Inj 50 Ml Syringe) 50 ml IV X1 ONE Stop: 08/22/24 00:18 Last Admin: 08/22/24 02:54 Dose: 50 ml Heparin Sodium (Porcine) (Heparin Sod Inj 5000 Unit/Ml Vial) 5,000 unit SC Q8HR [facility] Stop: 09/05/24 05:59 Dopamine HCl/Dextrose (Intropin In D5w Ivpb) 400 mg in 250 mls @ 15 mls/hr IV .[id number] KENNY; Protocol Stop: 09/20/24 19:05 Last Titration: 08/22/24 06:10 Dose: 9 mcg/kg/min, 27 mls/hr Magnesium Sulfate (Magnesium Sulfate Ivpb) 2 gm in 50 mls @ 25 mls/hr IV X1 ONE Stop: 08/21/24 21:18 Last Admin: 08/21/24 21:09 Dose: Not Given Norepinephrine/Dextrose (Levophed In D5w 8mg/250ml) 8 mg in 250 mls @ 7.5 mls/hr IV .Q24H PRN; Protocol PRN Reason: PER PROTOCOL Stop: 09/20/24 21:08 Last Titration: 08/22/24 06:00 Dose: 0.05 mcg/kg/min, 7.5 mls/hr Ceftriaxone Sodium 2 gm/ (Sodium Chloride) 50 mls @ 100 mls/hr IV QDAY@2100 KENNY Stop: 08/29/24 20:59 Ceftriaxone Sodium 2 gm/ (Sodium Chloride) 50 mls @ 100 mls/hr IV X1 ONE Stop: 08/22/24 00:59 Last Admin: 08/22/24 03:10 Dose: 100 mls/hr Dextrose/Sodium Chloride (D5-1/2ns) 500 mls @ 250 mls/hr IV .Q2H ONE Stop: 08/22/24 02:19 Last Admin: 08/22/24 03:12 Dose: 250 mls/hr Calcium Gluconate/Sodium Chloride (Calcium Gluc/Ns 1000mg Ivpb) 1,000 mg in 50 mls @ 50 mls/hr IV X1 ONE Stop: 08/22/24 01:21 Last Admin: 08/22/24 05:45 Dose: Not Given Insulin Human Regular (Insulin Hum Regular 1 Unit/0.01 Ml (Per Unit)) 10 unit IV X1 ONE Stop: 08/21/24 21:53 Last Admin: 08/21/24 22:13 Dose: 10 unit Insulin Human Regular (Insulin Hum Regular 1 Unit/0.01 Ml (Per Unit)) 10 unit IV X1 ONE Stop: 08/22/24 00:22 Last Admin: 08/22/24 02:54 Dose: 10 unit Lidocaine HCl (Lidocaine Hcl 1% 20 Ml Vial) 20 ml IM X1 ONE Stop: 08/22/24 00:50 Last Admin: 08/22/24 01:45 Dose: 20 ml Magnesium Sulfate (Magnesium Sulf Inj 0.5 Gm/Ml Vial 2 Ml) 1 gm IVP X1 ONE Stop: 08/21/24 20:49 Last Admin: 08/21/24 19:20 Dose: 1 gm Midazolam HCl (Midazolam Inj 1 Mg/Ml Vial 2 Ml) 1 mg IV X1 ONE Stop: 08/21/24 20:37 Last Admin: 08/21/24 20:44 Dose: 1 mg Sodium Bicarbonate (Sodium Bicarb Inj 8.4% Syr 50 Ml Syringe) 50 ml IV X1 ONE Stop: 08/21/24 19:09 Last Admin: 08/21/24 19:15 Dose: 50 ml Sodium Bicarbonate (Sodium Bicarb Inj 8.4% Syr 50 Ml Syringe) 50 ml IV X1 ONE Stop: 08/21/24 21:53 Last Admin: 08/21/24 22:14 Dose: 50 ml Sodium Polystyrene Sulfonate (Sod Polystyrene Sulfon Susp 15 Gm/60 Ml Btl) 30 gm PO X1 ONE Stop: 08/22/24 05:01 Last Admin: 08/22/24 05:22 Dose: Not Given Assessment & Plan Plan A 64-year-old male with significant past medical history of hypertension, insulin-dependent diabetes mellitus, CAD s/p PCI, HFrEF [EF 10 to 15%], CKD stage III, bilateral below-knee amputations, atrial fibrillation living in alf facility was brought to the hospital with chief complaints of worsening mentation, shortness of breath and generalized weakness for the past 2 days. # Acute on chronic kidney disease, stage IIIb Likely prerenal versus ATN in the setting of shock -Patient presented to the hospital with the complaints of shortness of breath worsening mentation and per patient's patient had abdominal pain and foul-smelling urine. -Baseline creatinine as of 07/2024 is 2.4 -On the day of admission, 08/21/2024, creatinine is 6.3 -Urine analysis showed turbid urine with 2+ proteinuria, 3+ blood, 5180 RBC, 1928 WBC Plan -Patient was started on CRRT -Monitor renal functions and avoid nephrotoxic medications -Continue antibiotics # Hyperkalemia, resolving # Hyperphosphatemia # Lactic acidosis -Found to have potassium of 7.5 at the time of admission -On 08/22/2024, potassium is 5.3, phosphorus 8.3, lactate 6.9 -Patient is currently on CRRT and recommended to monitor electrolytes #Acute encephalopathy 2/2 UTI #Chronic right parietal stroke #Shock #Acute hypoxic respiratory failure. #Complicated UTI #Chronic anemia #IDDM #Elevated LFT's To be treated per ICU team Thank you for allowing us to involved in the care of the patient Patient plan of care was discussed with the attending physician, Dr. Marian Gates, PGY1 Attending Provider Attestation/Addendum Patient seen and examined with resident physician Dr. Pollard. Note reviewed, agree with findings and recommendations. Patient with sepsis and JADIEL. Not quite sure exact etiology for sepsis. On broad-spectrum antibiotics. Patient received 2 hours of conventional hemodialysis overnight due to metabolic acidosis and hyperkalemia. Urine output still remains low. Currently on 2 pressors. Decided to proceed with CRRT. Patient critically ill. Critical care time spent more than 40 minutes regarding plan of care and disease management. Please see CRRT flowsheet. CRRT for 10 hours, 3K, 39 bicarbonate, blood flow 100 to 150 mL/min, tight heparin, dialysate flow rate 100 mL/min, saline flush 50 mL/h. Plan of care discussed with ICU team and Dr. Oviedo.
--- NOTE | 2024-08-22 10:59 | ESPR_ITS ---
Documentation for date of: 08/22/24 Subjective Subjective Interval history: Patient seen and examined at bedside. He is a 64-year-old male with a past medical history of hypertension, hyperlipidemia, CKD stage IIIb, diabetes, bilateral BKA's, A-fib, CAD status post stent, HFrEF with ejection fraction 10 to 15% who presented to the ED on 08/21/2024 from [facility] with altered mental status and generalized weakness. Additionally, patient was noted to have sinus bradycardia, unresponsive to atropine and started on transcutaneous pacing as well as pressure support and dopamine for possible mixed etiology of shock-cardiogenic/distributive. Initially presented with acute kidney injury with creatinine of 6.3, potassium of 7.5. Patient had a session of dialysis this morning and repeat labs showed creatinine 4.2 and potassium of 5.3. Initially, patient noted to have no urine output but now has about 450 cc out. Nephrology consulted, will continue with CRRT today. Patient on ceftriaxone 2 g for urosepsis. Prather catheter noted to have some blood and possible tissue units, urinalysis showed pyuria and hematuria. Will follow-up with renal and bladder ultrasound. Exam Vital Signs Temp Pulse Resp BP Pulse Ox O2 Del Method O2 Flow Rate 97.5 F 68 19 112/53 L 99 Oxy Mask 3 08/22/24 08:13 08/22/24 10:45 08/22/24 10:45 08/22/24 10:45 08/22/24 10:45 08/22/24 01:19 08/22/24 08:13 Narrative Exam GENERAL: Not awake or alert, disoriented NEURO: Unable to assess mental status HEENT: Dry mucosa. Eyes not open. CARDIO: No chest pain on palpation. Heart RRR, no obvious murmurs PULM: Minimal crackles bilaterally, Oxy mask with 12L GI: Abdomen soft, nondistended. BSx4 URO/FUNCTIONAL TESTER:: No further abnormalities noted. Prather catheter in situ SKIN/MSK/EXT: Bilateral BKA, right stump has minimal purulent discharge Objective Labs 08/23/24 06:41 08/23/24 06:41 Labs: Laboratory Results - last 24 hr 08/21/24 08/21/24 08/21/24 19:10 20:24 23:24 WBC 10.5 RBC 3.25 L Hgb 8.3 L Hct 26.8 L MCV 83 MCH 25.5 MCHC 31.0 RDW Std Deviation 64.2 H Plt Count 203 D Neut % (Auto) 81 H Lymph % (Auto) 12 Reeves % (Auto) 6 Eos % (Auto) 0 Baso % (Auto) 0 Neut # (Auto) 8.5 H Lymph # (Auto) 1.2 Reeves # (Auto) 0.6 Eos # (Auto) 0.0 Baso # (Auto) 0.0 Immature Gran # (Auto) 0.07 H Absolute Nucleated RBC 0.00 Immature Gran % 1 H Nucleated RBC % 0 PT 11.6 INR 1.1 APTT 26.2 Puncture Site ABG pH ABG pCO2 ABG pO2 ABG HCO3 ABG O2 Saturation ABG Base Excess VBG pH 7.32 L 7.22 L VBG pCO2 30 L 35 L VBG pO2 66 H 85 H VBG O2 Sat (Catherine) 89 L 95 L VBG Base Excess -10 L -12 L FiO2 Sodium 137 139 Potassium 7.5 H* 6.6 H* D Chloride 104 101 Carbon Dioxide 14.4 L* 14.5 L* Anion Gap 19 H 24 H BUN 82 H 85 H Creatinine 6.3 H* 6.2 H* Estim Creat Clear Calc Not Performed. Not Performed. eGFR 9 L* 9 L* BUN/Creatinine Ratio 13 14 Glucose 95 249 H D Calculated Osmolality 298 H 311 H Lactic Acid 7.0 H* Calcium 8.2 L 9.9 D Corrected Calcium 8.4 L 9.9 D Phosphorus 7.7 H 8.3 H Magnesium 3.6 H Iron TIBC Iron Saturation Unsat Iron Binding Total Bilirubin 0.2 L AST 76 H ALT 154 H Alkaline Phosphatase 77 Ammonia 11 Total Protein 6.7 Albumin 3.8 4.0 Globulin 2.9 Albumin/Globulin Ratio 1.3 Ur Collection Type Urine Color Urine Clarity Urine pH Ur Specific Navarro Urine Protein Urine Glucose (UA) Urine Ketones Urine Blood Urine Nitrite Urine Bilirubin Urine Urobilinogen (Auto) Ur Leukocyte Esterase Urine RBC Urine WBC Ur Squamous Epith Cells Urine Bacteria Hepatitis A IgM Ab Hep Bs Antigen Hep Bs Antibody Hep B Core IgM Ab Hepatitis C Antibody 08/21/24 08/22/24 08/22/24 23:40 03:09 04:35 WBC RBC Hgb Hct MCV MCH MCHC RDW Std Deviation Plt Count Neut % (Auto) Lymph % (Auto) Reeves % (Auto) Eos % (Auto) Baso % (Auto) Neut # (Auto) Lymph # (Auto) Reeves # (Auto) Eos # (Auto) Baso # (Auto) Immature Gran # (Auto) Absolute Nucleated RBC Immature Gran % Nucleated RBC % PT INR APTT Puncture Site Right Brachial ABG pH 7.26 L ABG pCO2 31 L ABG pO2 92 ABG HCO3 14 L ABG O2 Saturation 97 ABG Base Excess -12 L VBG pH VBG pCO2 VBG pO2 VBG O2 Sat (Catherine) VBG Base Excess FiO2 21 Sodium Potassium Chloride Carbon Dioxide Anion Gap BUN Creatinine Estim Creat Clear Calc eGFR BUN/Creatinine Ratio Glucose Calculated Osmolality Lactic Acid 7.1 H* Calcium Corrected Calcium Phosphorus Magnesium Iron 42 L TIBC 235 L Iron Saturation 17 L Unsat Iron Binding 193 L Total Bilirubin AST ALT Alkaline Phosphatase Ammonia Total Protein Albumin Globulin Albumin/Globulin Ratio Ur Collection Type Catheter Urine Color Dark-Brown Urine Clarity Turbid A Urine pH 5.5 Ur Specific Navarro 1.017 Urine Protein 2+ A Urine Glucose (UA) Negative Urine Ketones Negative Urine Blood 3+ A Urine Nitrite Negative Urine Bilirubin Negative Urine Urobilinogen (Auto) Negative Ur Leukocyte Esterase Positive Urine RBC 5180 H Urine WBC 1928 H Ur Squamous Epith Cells 0 Urine Bacteria None Hepatitis A IgM Ab Hep Bs Antigen Hep Bs Antibody Hep B Core IgM Ab Hepatitis C Antibody 08/22/24 08/22/24 06:05 07:05 WBC 12.5 H RBC 3.31 L Hgb 8.6 L Hct 27.2 L MCV 82 MCH 26.0 MCHC 31.6 RDW Std Deviation 63.3 H Plt Count 213 Neut % (Auto) 91 H Lymph % (Auto) 4 L Reeves % (Auto) 4 Eos % (Auto) 0 Baso % (Auto) 0 Neut # (Auto) 11.5 H Lymph # (Auto) 0.5 L Reeves # (Auto) 0.6 Eos # (Auto) 0.0 Baso # (Auto) 0.0 Immature Gran # (Auto) 0.06 H Absolute Nucleated RBC 0.00 Immature Gran % 1 H Nucleated RBC % 0 PT INR APTT Puncture Site ABG pH ABG pCO2 ABG pO2 ABG HCO3 ABG O2 Saturation ABG Base Excess VBG pH VBG pCO2 VBG pO2 VBG O2 Sat (Catherine) VBG Base Excess FiO2 Sodium 136 Potassium 5.3 H D Chloride 99 Carbon Dioxide 21.1 Anion Gap 16 BUN 54 H Creatinine 4.2 H* D Estim Creat Clear Calc Not Performed. eGFR 15 L BUN/Creatinine Ratio 13 Glucose 249 H Calculated Osmolality 294 Lactic Acid 5.1 H* Calcium 8.8 Corrected Calcium 9.0 Phosphorus Magnesium Iron TIBC Iron Saturation Unsat Iron Binding Total Bilirubin 0.3 AST 74 H ALT 162 H Alkaline Phosphatase 83 Ammonia Total Protein 6.9 Albumin 3.8 Globulin 3.1 Albumin/Globulin Ratio 1.2 Ur Collection Type Urine Color Urine Clarity Urine pH Ur Specific Navarro Urine Protein Urine Glucose (UA) Urine Ketones Urine Blood Urine Nitrite Urine Bilirubin Urine Urobilinogen (Auto) Ur Leukocyte Esterase Urine RBC Urine WBC Ur Squamous Epith Cells Urine Bacteria Hepatitis A IgM Ab Non Reactive Hep Bs Antigen Non Reactive Hep Bs Antibody NonReact(Not Immune) L Hep B Core IgM Ab Non Reactive Hepatitis C Antibody Non Reactive ABG Interpretation ABG results: 08/21/24 08/21/24 08/22/24 20:24 23:24 04:35 ABG pH 7.26 L ABG pCO2 31 L ABG pO2 92 ABG HCO3 14 L ABG O2 Saturation 97 ABG Base Excess -12 L VBG pH 7.32 L 7.22 L VBG pCO2 30 L 35 L VBG pO2 66 H 85 H VBG Base Excess -10 L -12 L Quality Measures Quality Measures none Advance care planning discussed with:: other Assessment & Plan Assessment Current Active Medications: Generic Name Dose Route Start Last Admin Trade Name Freq PRN Reason Stop Dose Admin Acetaminophen 650 mg 08/21/24 23:37 Acetaminophen 325 Mg Tablet PO 09/20/24 23:36 Q4HR PRN PAIN SCALE 1-3 (mild Acetaminophen 650 mg 08/21/24 23:37 Acetaminophen Supp 650 Mg Supp NH 09/20/24 23:36 Q4HR PRN PAIN SCALE 1-3 (mild Al Hydrox/Mg Hydrox/Simethicone 30 ml 08/22/24 00:31 Mg Hyd/Al Hyd/Stephy (Maalox Reg) Susp 30 Ml Udc PO 09/20/24 23:36 Q4HR PRN Heartburn or Upset Stomach Dextrose 25 ml 08/22/24 04:20 Dextrose 50%-Water Inj 50 Ml Syringe IV 09/21/24 04:19 Q15MIN PRN BG 50-70 responsive npo pt Dextrose 50 ml 08/22/24 04:20 Dextrose 50%-Water Inj 50 Ml Syringe IV 09/21/24 04:19 Q15MIN PRN BG <50 OR BG <70 & pt unresponsive Heparin Sodium (Porcine) 5,000 unit 08/22/24 09:00 Heparin Sod Inj 5000 Unit/Ml Vial SC 09/05/24 08:59 BID KENNY Heparin Sodium (Porcine) 3,000 unit 08/22/24 05:34 08/22/24 06:50 Heparin Sod Inj 1000 Unit/Ml Vial 10 Ml INDWELLCAT 09/05/24 05:33 3,000 unit PRN PRN Administration DIALYSIS Midazolam HCl 100 mg in 100 mls @ 1 mls/hr 08/21/24 19:42 Versed Pf Inj In Ns Premix IV 08/26/24 19:41 .Q24H PRN PER PROTOCOL Protocol 1 MG/HR Morphine Sulfate 100 mls @ 2 mls/hr 08/21/24 20:38 Morphine Sulfate Iv Drip 100mg/100ml IV 08/26/24 20:37 Q50H PRN PAIN (COMFORT CARE) Protocol 2 MG/HR Albumin Human 25 gm in 100 mls @ 100 mls/min 08/22/24 05:34 Albuminar-25 Ivpb IV PRN PRN DIALYSIS Dopamine HCl/Dextrose 400 mg in 250 mls @ 11.231 mls/hr 08/22/24 06:25 08/22/24 07:45 Intropin In D5w Ivpb IV 09/20/24 19:05 8 mcg/kg/min .[id number] COUNTS INCLUDE 234 BEDS AT THE [facility] 17.97 mls/hr Titration Protocol 5 MCG/KG/MIN Norepinephrine/Dextrose 8 mg in 250 mls @ 5.616 mls/hr 08/22/24 06:27 08/22/24 07:00 Levophed In D5w 8mg/250ml IV 09/20/24 21:08 0.07 mcg/kg/min .Q24H PRN 7.862 mls/hr PER PROTOCOL Titration Protocol 0.05 MCG/KG/MIN Ceftriaxone Sodium/Dextrose 2 gm in 50 mls @ 100 mls/hr 08/22/24 21:00 Rocephin/D5w 2gm IV 08/29/24 20:59 QDAY@2100 COUNTS INCLUDE 234 BEDS AT THE [facility] Insulin Glargine 15 unit 08/22/24 09:00 Insulin Glargine (Lantus) 5 Unit/0.05 Ml (Per 5 Units) SC 09/21/24 08:59 BID KENNY Insulin Human Lispro 0 unit 08/22/24 06:00 08/22/24 06:13 Insulin Lispro (Admelog) 1 Unit/0.01 Ml Unit SC 09/21/24 05:59 4 unit Q6HR COUNTS INCLUDE 234 BEDS AT THE [facility] Administration Protocol Magnesium Hydroxide 30 ml 08/21/24 23:37 Milk Of Magnesia Susp 30 Ml Udc PO 09/20/24 23:36 QDAY PRN CONSTIPATION Pharmacy Consult 1 each 08/22/24 08:10 Pharmacy To Consult Patient XX 09/21/24 08:09 PRN PRN Starting 24Hr Continuous/Intermittent Dialysis Plan Summary: The patient is a 64-year-old male with a past medical history of hypertension, hyperlipidemia, CKD stage IIIb, diabetes, bilateral BKA's, A-fib, CAD status post stent, HFrEF with ejection fraction 10 to 15% who presented to the ED on 08/21/2024 from [facility] with altered mental status and generalized weakness. Neuro #Acute encephalopathy #Uremic versus infectious Patient presented with confusion and weakness from the facility. UA significant for UTI with pyuria. Additionally, renal function panel significant for azotemia with significantly elevated creatinine, lactic acidosis and hyperkalemia. Plan: -Treat underlying cause Cardiovascular #Shock, likely mixed etiology #Cardiogenic plus distributive #History of HFrEF The patient presented to the ED with a blood pressure of 77/55. Due to history of HFrEF with ejection fraction of 10 to 15%, he received only 500 cc bolus of fluids. Blood pressure continued to remain soft with a MAP lower than 65 and the patient was admitted to the ICU for pressor support. Additionally, patient does meet SIRS criteria for sepsis with urine as a source. Plan: -Currently on IV Levophed -Dopamine per cardiology -Cardiology consulted, appreciate recommendations #Sinus bradycardia Initial presentation, the patient was reported to have had bradycardia with heart rates in the 30s. EMS had given 1 dose of atropine which did not improve heart rate, transcutaneous pacing was started. Bradycardia likely due to hyperkalemia plus acidosis plus possible side effects of medications, patient is on metoprolol and amiodarone. Plan: -Continue to monitor Respiratory #Acute hypoxic respiratory failure The patient on presentation had increasing oxygen requirement, placed on 3 L of oxygen via nasal cannula. Chest x-ray shows some moderate vascular congestion, otherwise unremarkable. Likely as a result of decreased cardiac output as well as acidosis. GI #Transaminitis Initial labs show slightly elevated AST and ALT, likely as a result of shock. T. bili and ALP normal Plan: -Continue to monitor LFTs Renal #Acute on chronic kidney injury #Hyperkalemia #Lactic acidosis The patient has a history of stage III CKD. He is reported to have had poor oral intake in the last couple days. Likely prerenal due to decreased volume, likely progressing to ATN. Had 1 session of hemodialysis this morning, repeat labs showed improving hyperkalemia and creatinine reduction to 4.3, lactic acidosis is resolving. Nephrology consulted, patient currently on session of CRRT. Plan: -Continue to monitor renal panel -Avoid nephrotoxic medications -Renally dose medications Hematology/oncology #Leukocytosis #Anemia Likely combination of iron deficiency anemia as well as anemia of chronic disease. Hemoglobin currently stable, will continue to monitor H&H and transfuse if less than 7. Endocrinology #History of type II DM The patient was on glargine 15 units twice daily at home Last A1c was 10.2 Blood glucose currently within normal limits. Plan: -ISS -Follow-up A1c -Hypoglycemic is in place -Keep blood levels between 140 and 180 ID #Sepsis secondary to UTI Patient presented with confusion, urinalysis showed turbid urine with pyuria. Plan: -Continue IV ceftriaxone 2 g daily -Pending urine culture Urology #Hematuria Per chart review, noted the patient has had consistent hematuria for months. has also reported gross hematuria Prather does have some blood and possible clots. For now, cause unknown Plan: -Renal ultrasound Health maintenance: Dispo: ICU for shock cardiogenic and likely distributive Diet: N.p.o. DVT: SQ heparin (held) Prather: None Lines: Left IJ, peripherals Code: DNR Case was discussed with attending physician, Dr Preet Castro MD PGY-1 Disclaimer: This note was dictated by speech recognition. Minor errors in steamboat pilot may be present due to voice recognition software. Attending Provider Attestation/Addendum pt seen and examined. In brief this is a 64yo M admitted to the ICU for AMS, shock and JADIEL. pt originally presented to the ER with severe bradycardia and hypotension. He was started on dopamine and levo. He was felt to have both cardiogenic and septic shock with a UTI. Pt was started on CRRT. He had gradual improvement throughout the day. Cheevelia was placed for additional hemodynamic monitoring. He is on broad spectrum abx and will fu on cx results. UA with significant hematuria and will obtain renal US. Pts bradycardia felt to be due to home meds and lack of clearence with his JADIEL. case d/w ICU team and nephrology labs, imaging, records reviewed ~50ccmin required for eval, exam, review, intervention, dicussion and formulation of POC for this critically ill pt with shock at high risk for further and ongoing decompensation.
[2024-08-22 11:00] LABS: Lactic Acid, 3 HR 6.9 mMol/L (0.4-2.0)
[2024-08-22] MEDS: HEPARIN SOD INJ 5000 UNIT/ML VIAL SC (11:43)
[2024-08-22] MEDS: DEXTROSE 50%-WATER INJ 50 ML SYRINGE 25 ML IV (11:43)
[2024-08-22] MEDS: HEPARIN SOD INJ 1000 UNIT/ML VIAL 10 ML 3500 UNIT INDWELLCAT (13:45)
--- NOTE | 2024-08-22 13:47 | PC.NURSE ---
Addendum entered by Rosemary Lundberg RN 08/22/24 13:50: Addendum 1300 PAUSED TREATMENT DUE TO CLOTTING IN [place]TR[place], REPLACED AND RESTARTED AT 1345 Original Note: 1325 PAUSED TREATMENT DUE TO CLOTTING IN [place]TR[place], REPLACED AND RESTARTED AT 1345
--- NOTE | 2024-08-22 14:59 | PD.RESPRO ---
Documentation for date of: 08/22/24 Subjective Subjective Interval history: The patient is evaluated at bedside, currently on CRRT, maintaining blood pressure 111/70 on Levophed. Dopamine was discontinued earlier today. Chart review shows sinus rhythm with heart rate in the 70s. Currently being treated for cardiogenic shock, does not seem to be in volume overload at the moment. Exam Vital Signs Temp Pulse Resp BP Pulse Ox O2 Del Method O2 Flow Rate 98.3 F 77 25 H 104/70 78 L Oxy Mask 3 08/22/24 11:28 08/22/24 14:45 08/22/24 14:00 08/22/24 14:45 08/22/24 14:00 08/22/24 01:19 08/22/24 08:13 Narrative Exam General: Drowsy and irritable, able to follow some commands HEENT: Normocephalic, atraumatic, mucous membranes moist. Heart: Regular rate and rhythm, no murmurs. Lungs: Clear to auscultation with no wheezing or crackles. Abdomen: Soft, nondistended, nontender, positive bowel sounds. ?No guarding or rebound tenderness. Neurologic: patient able to move all 4 extremities. Drowsy but irritatable Extremities: No edema. Skin: No rash or ecchymoses. Objective Labs 08/22/24 07:05 08/22/24 17:58 Labs: Laboratory Results - last 24 hr 08/21/24 08/21/24 08/21/24 19:10 20:24 23:24 WBC 10.5 RBC 3.25 L Hgb 8.3 L Hct 26.8 L MCV 83 MCH 25.5 MCHC 31.0 RDW Std Deviation 64.2 H Plt Count 203 D Neut % (Auto) 81 H Lymph % (Auto) 12 [place] % (Auto) 6 Eos % (Auto) 0 Baso % (Auto) 0 Neut # (Auto) 8.5 H Lymph # (Auto) 1.2 [place] # (Auto) 0.6 Eos # (Auto) 0.0 Baso # (Auto) 0.0 Immature Gran # (Auto) 0.07 H Absolute Nucleated RBC 0.00 Immature Gran % 1 H Nucleated RBC % 0 PT 11.6 INR 1.1 APTT 26.2 Puncture Site ABG pH ABG pCO2 ABG pO2 ABG HCO3 ABG O2 Saturation ABG Base Excess VBG pH 7.32 L 7.22 L VBG pCO2 30 L 35 L VBG pO2 66 H 85 H VBG O2 Sat (Catherine) 89 L 95 L VBG Base Excess -10 L -12 L FiO2 Sodium 137 139 Potassium 7.5 H* 6.6 H* D Chloride 104 101 Carbon Dioxide 14.4 L* 14.5 L* Anion Gap 19 H 24 H BUN 82 H 85 H Creatinine 6.3 H* 6.2 H* Estim Creat Clear Calc Not Performed. Not Performed. eGFR 9 L* 9 L* BUN/Creatinine Ratio 13 14 Glucose 95 249 H D Calculated Osmolality 298 H 311 H Lactic Acid 7.0 H* Calcium 8.2 L 9.9 D Corrected Calcium 8.4 L 9.9 D Phosphorus 7.7 H 8.3 H Magnesium 3.6 H Iron TIBC Iron Saturation Unsat Iron Binding Total Bilirubin 0.2 L AST 76 H ALT 154 H Alkaline Phosphatase 77 Ammonia 11 Total Protein 6.7 Albumin 3.8 4.0 Globulin 2.9 Albumin/Globulin Ratio 1.3 Ur Collection Type Urine Color Urine Clarity Urine pH Ur Specific [place] Urine Protein Urine Glucose (UA) Urine Ketones Urine Blood Urine Nitrite Urine Bilirubin Urine Urobilinogen (Auto) Ur Leukocyte Esterase Urine RBC Urine WBC Ur Squamous Epith Cells Urine Bacteria Hepatitis A IgM Ab Hep Bs Antigen Hep Bs Antibody Hep B Core IgM Ab Hepatitis C Antibody 08/21/24 08/22/24 08/22/24 23:40 03:09 04:35 WBC RBC Hgb Hct MCV MCH MCHC RDW Std Deviation Plt Count Neut % (Auto) Lymph % (Auto) [place] % (Auto) Eos % (Auto) Baso % (Auto) Neut # (Auto) Lymph # (Auto) [place] # (Auto) Eos # (Auto) Baso # (Auto) Immature Gran # (Auto) Absolute Nucleated RBC Immature Gran % Nucleated RBC % PT INR APTT Puncture Site Right Brachial ABG pH 7.26 L ABG pCO2 31 L ABG pO2 92 ABG HCO3 14 L ABG O2 Saturation 97 ABG Base Excess -12 L VBG pH VBG pCO2 VBG pO2 VBG O2 Sat (Catherine) VBG Base Excess FiO2 21 Sodium Potassium Chloride Carbon Dioxide Anion Gap BUN Creatinine Estim Creat Clear Calc eGFR BUN/Creatinine Ratio Glucose Calculated Osmolality Lactic Acid 7.1 H* Calcium Corrected Calcium Phosphorus Magnesium Iron 42 L TIBC 235 L Iron Saturation 17 L Unsat Iron Binding 193 L Total Bilirubin AST ALT Alkaline Phosphatase Ammonia Total Protein Albumin Globulin Albumin/Globulin Ratio Ur Collection Type Catheter Urine Color Dark-Brown Urine Clarity Turbid A Urine pH 5.5 Ur Specific [place] 1.017 Urine Protein 2+ A Urine Glucose (UA) Negative Urine Ketones Negative Urine Blood 3+ A Urine Nitrite Negative Urine Bilirubin Negative Urine Urobilinogen (Auto) Negative Ur Leukocyte Esterase Positive Urine RBC 5180 H Urine WBC 1928 H Ur Squamous Epith Cells 0 Urine Bacteria None Hepatitis A IgM Ab Hep Bs Antigen Hep Bs Antibody Hep B Core IgM Ab Hepatitis C Antibody 08/22/24 08/22/24 08/22/24 06:05 07:05 10:17 WBC 12.5 H RBC 3.31 L Hgb 8.6 L Hct 27.2 L MCV 82 MCH 26.0 MCHC 31.6 RDW Std Deviation 63.3 H Plt Count 213 Neut % (Auto) 91 H Lymph % (Auto) 4 L [place] % (Auto) 4 Eos % (Auto) 0 Baso % (Auto) 0 Neut # (Auto) 11.5 H Lymph # (Auto) 0.5 L [place] # (Auto) 0.6 Eos # (Auto) 0.0 Baso # (Auto) 0.0 Immature Gran # (Auto) 0.06 H Absolute Nucleated RBC 0.00 Immature Gran % 1 H Nucleated RBC % 0 PT INR APTT Puncture Site ABG pH ABG pCO2 ABG pO2 ABG HCO3 ABG O2 Saturation ABG Base Excess VBG pH VBG pCO2 VBG pO2 VBG O2 Sat (Catherine) VBG Base Excess FiO2 Sodium 136 Potassium 5.3 H D Chloride 99 Carbon Dioxide 21.1 Anion Gap 16 BUN 54 H Creatinine 4.2 H* D Estim Creat Clear Calc Not Performed. eGFR 15 L BUN/Creatinine Ratio 13 Glucose 249 H Calculated Osmolality 294 Lactic Acid 5.1 H* 6.9 H* Calcium 8.8 Corrected Calcium 9.0 Phosphorus Magnesium Iron TIBC Iron Saturation Unsat Iron Binding Total Bilirubin 0.3 AST 74 H ALT 162 H Alkaline Phosphatase 83 Ammonia Total Protein 6.9 Albumin 3.8 Globulin 3.1 Albumin/Globulin Ratio 1.2 Ur Collection Type Urine Color Urine Clarity Urine pH Ur Specific [place] Urine Protein Urine Glucose (UA) Urine Ketones Urine Blood Urine Nitrite Urine Bilirubin Urine Urobilinogen (Auto) Ur Leukocyte Esterase Urine RBC Urine WBC Ur Squamous Epith Cells Urine Bacteria Hepatitis A IgM Ab Non Reactive Hep Bs Antigen Non Reactive Hep Bs Antibody NonReact(Not Immune) L Hep B Core IgM Ab Non Reactive Hepatitis C Antibody Non Reactive ABG Interpretation ABG results: 08/21/24 08/21/24 08/22/24 20:24 23:24 04:35 ABG pH 7.26 L ABG pCO2 31 L ABG pO2 92 ABG HCO3 14 L ABG O2 Saturation 97 ABG Base Excess -12 L VBG pH 7.32 L 7.22 L VBG pCO2 30 L 35 L VBG pO2 66 H 85 H VBG Base Excess -10 L -12 L Quality Measures Quality Measures none Advance care planning discussed with:: patient Assessment & Plan Assessment Current Active Medications: Generic Name Dose Route Start Last Admin Trade Name Freq PRN Reason Stop Dose Admin Acetaminophen 650 mg 08/21/24 23:37 Acetaminophen 325 Mg Tablet PO 09/20/24 23:36 Q4HR PRN PAIN SCALE 1-3 (mild Acetaminophen 650 mg 08/21/24 23:37 Acetaminophen Supp 650 Mg Supp MS 09/20/24 23:36 Q4HR PRN PAIN SCALE 1-3 (mild Acetylcysteine 3 ml 08/22/24 15:00 Acetylcysteine Rt Jing 10% 4 Ml Nebu INH 09/21/24 14:59 Q4HRRT KENNY Al Hydrox/Mg Hydrox/Simethicone 30 ml 08/22/24 00:31 Mg Hyd/Al Hyd/Stephy (Maalox Reg) Susp 30 Ml Udc PO 09/20/24 23:36 Q4HR PRN Heartburn or Upset Stomach Albuterol 2.5 mg 08/22/24 15:00 Albuterol Rt 2.5 Mg/0.5 Ml Nebu INH 09/21/24 14:59 Q4HRRT KENNY Dextrose 25 ml 08/22/24 04:20 08/22/24 11:43 Dextrose 50%-Water Inj 50 Ml Syringe IV 09/21/24 04:19 25 ml Q15MIN PRN Administration BG 50-70 responsive npo pt Dextrose 50 ml 08/22/24 04:20 Dextrose 50%-Water Inj 50 Ml Syringe IV 09/21/24 04:19 Q15MIN PRN BG <50 OR BG <70 & pt unresponsive Heparin Sodium (Porcine) 5,000 unit 08/22/24 09:00 03/14/25 11:43 Heparin Sod Inj 5000 Unit/Ml Vial SC 09/05/24 08:59 5,000 unit BID KENNY Administration Heparin Sodium (Porcine) 3,000 unit 08/22/24 05:34 08/22/24 06:50 Heparin Sod Inj 1000 Unit/Ml Vial 10 Ml INDWELLCAT 09/05/24 05:33 3,000 unit PRN PRN Administration DIALYSIS Midazolam HCl 100 mg in 100 mls @ 1 mls/hr 08/21/24 19:42 Versed Pf Inj In Ns Premix IV 08/26/24 19:41 .Q24H PRN PER PROTOCOL Protocol 1 MG/HR Morphine Sulfate 100 mls @ 2 mls/hr 08/21/24 20:38 Morphine Sulfate Iv Drip 100mg/100ml IV 08/26/24 20:37 Q50H PRN PAIN (COMFORT CARE) Protocol 2 MG/HR Albumin Human 25 gm in 100 mls @ 100 mls/min 08/22/24 05:34 Albuminar-25 Ivpb IV PRN PRN DIALYSIS Dopamine HCl/Dextrose 400 mg in 250 mls @ 11.231 mls/hr 08/22/24 06:25 08/22/24 14:00 Intropin In D5w Ivpb IV 09/20/24 19:05 2 mcg/kg/min .[id number] [facility] 4.493 mls/hr Titration Protocol 5 MCG/KG/MIN Norepinephrine/Dextrose 8 mg in 250 mls @ 5.616 mls/hr 08/22/24 06:27 08/22/24 14:00 Levophed In D5w 8mg/250ml IV 09/20/24 21:08 0.19 mcg/kg/min .Q24H PRN 21.339 mls/hr PER PROTOCOL Titration Protocol 0.05 MCG/KG/MIN Ceftriaxone Sodium/Dextrose 2 gm in 50 mls @ 100 mls/hr 08/22/24 21:00 Rocephin/D5w 2gm IV 08/29/24 20:59 QDAY@2100 [facility] Insulin Glargine 15 unit 08/22/24 09:00 08/22/24 11:41 Insulin Glargine (Lantus) 5 Unit/0.05 Ml (Per 5 Units) SC 09/21/24 08:59 Not Given BID [facility] Insulin Human Lispro 0 unit 08/22/24 06:00 08/22/24 12:09 Insulin Lispro (Admelog) 1 Unit/0.01 Ml Unit SC 09/21/24 05:59 Not Given Q6HR [facility] Protocol Magnesium Hydroxide 30 ml 08/21/24 23:37 Milk Of Magnesia Susp 30 Ml Udc PO 09/20/24 23:36 QDAY PRN CONSTIPATION Pharmacy Consult 1 each 08/22/24 08:10 Pharmacy To Consult Patient XX 09/21/24 08:09 PRN PRN Starting 24Hr Continuous/Intermittent Dialysis Sodium Chloride 3 ml 08/22/24 14:07 Sodium Chloride Rt Jing 0.9% 3 Ml Nebu INH 09/21/24 14:06 PRN PRN SOLN Plan Patient is a 64-year-old male past medical history of cardiogenic shock secondary to symptomatic bradycardia, precipitated by electrolyte abnormalities including hyperkalemia and metabolic acidosis, likely lactic acidosis, past medical history of HFrEF 10 to 15% EF, ischemic cardiomyopathy, history of CKD stage III, presented with acute kidney injury and hyperkalemia, nonresponding to medical therapy, requiring hemodialysis and currently on CRRT. Past medical history also pertinent for osteomyelitis and recent BKA was done, recovering from high risk surgery . #Cardiogenic shock #Symptomatic bradycardia secondary to hyperkalemia ?Currently on Levophed, dopamine was discontinued earlier today, maintaining heart rate in the 70s, sinus rhythm on telemetry, requiring inotropic support, concurrent CRRT. - Pt is in sinus rythm, wean off pressors as indicated. - close monitoring of electrolytes, target K >4 and Mag>2 #HFrEF EF 10 to 15% #Ischemic cardiomyopathy #JADIEL on CKD?on CRRT #Hyperkalemia #Lactic acidosis #History of osteomyelitis status post BKA #History of atrial fibrillation Care plan discussed with cardiologsit dr Florence Montanez pgy2
--- NOTE | 2024-08-22 15:19 | PC.SS ---
SS update: patient received dialysis today, nephrology is consulting.
--- NOTE | 2024-08-22 16:47 | PD.RESPROC ---
Procedures Procedure Date / Time 08/22/24 2767 Arterial Line Indication(s): frequent arterial line sampling Informed consent obtained: obtained from surrogate decision maker Time out done, and the following verified: correct patient and procedure Size (Gauge): 18 Technique used: guide wire technique EBL(ml): 5 Complications: other (thigh hematoma) Site: femoral Procedure comment: Procedure aborted. Arterial line placement initially successful with a good waveform. As we were preparing to suture the catheter in place, the patient vigorously moved his lower extremities and caused the catheter kink significantly and be dislodged senior living. Hematoma at the site then formed. Catheter removed and manual pressure was applied to the hematoma site. The site will be continuously monitored.
[2024-08-22] MEDS: Norepinephrine/D5W 8mg/250ml 8 MG/250 ML BAG 23.586 MG IV (18:36)
[2024-08-22 18:45] LABS: Albumin, Serum 3.3 gm/dL (3.4-4.8); Anion Gap 14 (7-16); BUN/Creatinine Ratio 11 Ratio (12-20); Blood Urea Nitrogen 20 mg/dL (9-23); Calcium 8.2 mg/dL (8.3-10.6); Calcium (Corrected) 8.8 mg/dL (8.5-10.1); Carbon Dioxide 23.6 mMol/L (20.0-31.0); Chloride 99 mMol/L (98-107); Creatinine (Component) 1.9 mg/dL (0.6-1.3); Glucose 82 mg/dL (74-106); Osmolality,Calculated 275 (275-295); Phosphorous 2.4 mg/dL (2.4-5.1); Potassium 4.1 mMol/L (3.4-5.1); Sodium 137 mMol/L (136-145); eGFR 38 See Note
[2024-08-22] MEDS: ALBUTEROL RT 2.5 MG/0.5 ML NEBU INH ×2 (19:00→22:30)
[2024-08-22] MEDS: ACETYLCYSTEINE RT SOL 10% 4 ML NEBU 3 ML INH ×2 (19:00→22:30)
[2024-08-22] MEDS: cefTRIAXone/D5w 2gm 2 GM/50 ML BAG IV (21:10)
[2024-08-22 22:44] LABS: Basophils % (Auto) 0 % (0-2.5); Eosinophils % (Auto) 0 % (0-10); Hematocrit 24.2 % (41.0-53.0); Immature Granulocytes % (Auto) 0 % (0-0); Immature Granulocytes Auto 0.08 Thou/mm3 (0.00-0.00); Lymphocytes # (Auto) 0.8 Thou/mm3 (1.0-4.8); Lymphocytes % (Auto) 4 % (10-50); Mean Corpuscular HGB Conc 31.8 g/dl (31.0-37.0); Mean Corpuscular Hemoglobin 25.6 pg (25.0-35.0); Mean Corpuscular Volume 80 fL (80-100); Monocytes # (Auto) 0.7 Thou/mm3 (0.0-0.8); Monocytes % (Auto) 4 % (0-12); Neutrophils # (Auto) 18.2 Thou/mm3 (1.8-7.7); Neutrophils % (Auto) 92 % (37-80); Nucleated Red Blood Cell % 0 /100 WBC (0); Platelet Count 97 Thou/mm3 (140-440); RDW Standard Deviation 61.7 fL (35.1-43.9); Red Blood Count 3.01 Miln/mm3 (4.50-5.90); White Blood Count 19.8 Thou/mm3 (3.8-10.6)
[2024-08-22 22:46] LABS: Hemoglobin 7.7 g/dL (13.5-16.0)
[2024-08-22 23:06] LABS: Alanine Aminotransferase 130 U/L (10-49); Albumin, Serum 3.4 gm/dL (3.4-4.8); Albumin/Globulin Ratio 1.3 (1.2-2.2); Alkaline Phosphatase 75 U/L (46-116); Anion Gap 16 (7-16); Aspartate Amino Transferase 64 U/L (0-34); BUN/Creatinine Ratio 9 Ratio (12-20); Bilirubin,Total 0.4 mg/dL (0.3-1.2); Blood Urea Nitrogen 15 mg/dL (9-23); Calcium 8.1 mg/dL (8.3-10.6); Calcium (Corrected) 8.6 mg/dL (8.5-10.1); Carbon Dioxide 21.4 mMol/L (20.0-31.0); Chloride 98 mMol/L (98-107); Creatinine (Component) 1.6 mg/dL (0.6-1.3); Globulin 2.7 gm/dL (2.3-3.5); Glucose 91 mg/dL (74-106); Osmolality,Calculated 270 (275-295); Potassium 3.5 mMol/L (3.4-5.1); Sodium 135 mMol/L (136-145); Total Protein 6.1 gm/dL (5.7-8.2); eGFR 47 See Note
[2024-08-23] VITALS (139 sets, daily range): BP systolic 63–123; BP diastolic 44–76; PULSE 71–89; RESP 13–28; TEMP 36.4–36.7; O2SAT 83–100; BMI 30.7; BMI 20.7
[2024-08-23] MEDS: ACETYLCYSTEINE RT SOL 10% 4 ML NEBU 3 ML INH ×6 (03:10→22:40)
[2024-08-23] MEDS: ALBUTEROL RT 2.5 MG/0.5 ML NEBU INH ×6 (03:10→22:40)
[2024-08-23] MEDS: Norepinephrine/D5W 8mg/250ml 8 MG/250 ML BAG 10.108 MG IV (05:45)
[2024-08-23] MEDS: SODIUM CHLORIDE RT SOL 0.9% 3 ML NEBU INH (06:17)
[2024-08-23 07:21] LABS: Basophils % (Auto) 0 % (0-2.5); Eosinophils % (Auto) 0 % (0-10); Hematocrit 23.1 % (41.0-53.0); Immature Granulocytes % (Auto) 1 % (0-0); Immature Granulocytes Auto 0.08 Thou/mm3 (0.00-0.00); Lymphocytes # (Auto) 1.4 Thou/mm3 (1.0-4.8); Lymphocytes % (Auto) 8 % (10-50); Mean Corpuscular HGB Conc 31.6 g/dl (31.0-37.0); Mean Corpuscular Hemoglobin 25.9 pg (25.0-35.0); Mean Corpuscular Volume 82 fL (80-100); Monocytes # (Auto) 0.7 Thou/mm3 (0.0-0.8); Monocytes % (Auto) 4 % (0-12); Neutrophils # (Auto) 15.4 Thou/mm3 (1.8-7.7); Neutrophils % (Auto) 87 % (37-80); Nucleated Red Blood Cell % 0 /100 WBC (0); Platelet Count 125 Thou/mm3 (140-440); RDW Standard Deviation 63.4 fL (35.1-43.9); Red Blood Count 2.82 Miln/mm3 (4.50-5.90); White Blood Count 17.6 Thou/mm3 (3.8-10.6)
[2024-08-23 07:23] LABS: Hemoglobin 7.3 g/dL (13.5-16.0)
[2024-08-23 08:00] LABS: Alanine Aminotransferase 133 U/L (10-49); Albumin, Serum 3.3 gm/dL (3.4-4.8); Albumin/Globulin Ratio 1.2 (1.2-2.2); Alkaline Phosphatase 73 U/L (46-116); Anion Gap 19 (7-16); Aspartate Amino Transferase 83 U/L (0-34); BUN/Creatinine Ratio 9 Ratio (12-20); Bilirubin,Total 0.2 mg/dL (0.3-1.2); Blood Urea Nitrogen 20 mg/dL (9-23); Calcium 8.1 mg/dL (8.3-10.6); Calcium (Corrected) 8.7 mg/dL (8.5-10.1); Carbon Dioxide 19.1 mMol/L (20.0-31.0); Chloride 97 mMol/L (98-107); Creatinine (Component) 2.2 mg/dL (0.6-1.3); Estimated Creatinine Clearance 22.9 mL/min (>60); Globulin 2.7 gm/dL (2.3-3.5); Glucose 150 mg/dL (74-106); Osmolality,Calculated 275 (275-295); Potassium 3.8 mMol/L (3.4-5.1); Sodium 135 mMol/L (136-145); eGFR 32 See Note
[2024-08-23 08:14] LABS: Glucose Estimated Average 117 mg/dL (80-131); Hemoglobin A1C 5.7 % Hgb (4.8-6.0)
[2024-08-23] MEDS: HEPARIN SOD INJ 1000 UNIT/ML VIAL 10 ML 3500 UNIT INDWELLCAT (10:01)
--- NOTE | 2024-08-23 11:56 | ESPR_ITS ---
Documentation for date of: 08/23/24 Subjective Subjective Interval history: Patient seen and examined at bedside. No acute overnight events. Patient had 1 session of hemodialysis yesterday as well as CRRT with 700 cc removal. Urine output-219. Bedside today, patient is AAOx3, mentation is back to baseline. Lungs with minimal crackles bilaterally, patient sounds a little congested. Per nephrology, will continue continue another session of CRRT today. Will also do a swallow screen and if able, patient will be started on clear liquid diet. Otherwise, labs reviewed, downtrending leukocytosis, stable anemia, will start ferrous sulfate when patient is able to tolerate orally. Creatinine also improving. Patient still on Levophed about 0.09, down titrating, keeping steady for CRRT to avoid hypotension and then will continue to go down Levophed. Otherwise, will start DVT prophylaxis with subcu heparin since patient is not actively bleeding. Exam Vital Signs Temp Pulse Resp BP Pulse Ox O2 Del Method O2 Flow Rate 98.1 F 78 17 92/55 L 100 Oxy Mask 5 08/23/24 08:43 08/23/24 11:46 08/23/24 11:00 08/23/24 11:46 08/23/24 11:00 08/22/24 18:01 08/23/24 10:26 Narrative Exam GENERAL: AAOX3 NEURO: SUPERVISOR MATRIX grossly intact, No CN deficits HEENT: Dry mucosa. Eyes not open. CARDIO: No chest pain on palpation. Heart RRR, no obvious murmurs PULM: Minimal crackles bilaterally, no coughing or dyspnea, saturating 98% o room air GI: Abdomen soft, nondistended. 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 Pr[place] catheter in situ SKIN/MSK/EXT: Bilateral BKA, right stump has minimal purulent discharge Objective Labs 08/25/24 07:22 08/25/24 04:22 Labs: Laboratory Results - last 24 hr 08/22/24 08/22/24 08/23/24 17:58 22:28 06:41 WBC 19.8 H D 17.6 H RBC 3.01 L 2.82 L Hgb 7.7 L 7.3 L Hct 24.2 L 23.1 L MCV 80 82 MCH 25.6 25.9 MCHC 31.8 31.6 RDW Std Deviation 61.7 H 63.4 H Plt Count 97 L D 125 L D Neut % (Auto) 92 H 87 H Lymph % (Auto) 4 L 8 L [place] % (Auto) 4 4 Eos % (Auto) 0 0 Baso % (Auto) 0 0 Neut # (Auto) 18.2 H 15.4 H Lymph # (Auto) 0.8 L 1.4 [place] # (Auto) 0.7 0.7 Eos # (Auto) 0.0 0.0 Baso # (Auto) 0.0 0.0 Immature Gran # (Auto) 0.08 H 0.08 H Absolute Nucleated RBC 0.00 0.00 Immature Gran % 0 1 H Nucleated RBC % 0 0 Sodium 137 135 L 135 L Potassium 4.1 D 3.5 D 3.8 Chloride 99 98 97 L Carbon Dioxide 23.6 21.4 19.1 L Anion Gap 14 16 19 H BUN 20 15 20 Creatinine 1.9 H D 1.6 H 2.2 H D Estim Creat Clear Calc Not Performed. Not Performed. 22.9 L eGFR 38 L 47 L 32 L BUN/Creatinine Ratio 11 L 9 L 9 L Glucose 82 D [address] Glu mg/dL 117 Hemoglobin A1c 5.7 Calculated Osmolality 275 270 L 275 Lactic Acid 2.0 Calcium 8.2 L 8.1 L 8.1 L Corrected Calcium 8.8 8.6 8.7 Phosphorus 2.4 Total Bilirubin 0.4 0.2 L AST 64 H 83 H ALT 130 H 133 H Alkaline Phosphatase 75 73 Total Protein 6.1 6.0 Albumin 3.3 L D 3.4 3.3 L Globulin 2.7 2.7 Albumin/Globulin Ratio 1.3 1.2 ABG Interpretation ABG results: 08/21/24 08/21/24 08/22/24 20:24 23:24 04:35 ABG pH 7.26 L ABG pCO2 31 L ABG pO2 92 ABG HCO3 14 L ABG O2 Saturation 97 ABG Base Excess -12 L VBG pH 7.32 L 7.22 L VBG pCO2 30 L 35 L VBG pO2 66 H 85 H VBG Base Excess -10 L -12 L Quality Measures Quality Measures none Advance care planning discussed with:: patient Assessment & Plan Assessment Current Active Medications: Generic Name Dose Route Start Last Admin Trade Name Freq PRN Reason Stop Dose Admin Acetaminophen 650 mg 08/21/24 23:37 Acetaminophen 325 Mg Tablet PO 09/20/24 23:36 Q4HR PRN PAIN SCALE 1-3 (mild Acetaminophen 650 mg 08/21/24 23:37 Acetaminophen Supp 650 Mg Supp MI 09/20/24 23:36 Q4HR PRN PAIN SCALE 1-3 (mild Acetylcysteine 3 ml 08/22/24 15:00 08/23/24 10:25 Acetylcysteine Rt Jing 10% 4 Ml Nebu INH 09/21/24 14:59 3 ml Q4HRRT KENNY Administration Al Hydrox/Mg Hydrox/Simethicone 30 ml 08/22/24 00:31 Mg Hyd/Al Hyd/Stephy (Maalox Reg) Susp 30 Ml Udc PO 09/20/24 23:36 Q4HR PRN Heartburn or Upset Stomach Albuterol 2.5 mg 08/22/24 15:00 08/23/24 10:24 Albuterol Rt 2.5 Mg/0.5 Ml Nebu INH 09/21/24 14:59 2.5 mg Q4HRRT KENNY Administration Dextrose 25 ml 08/22/24 04:20 08/22/24 11:43 Dextrose 50%-Water Inj 50 Ml Syringe IV 09/21/24 04:19 25 ml Q15MIN PRN Administration BG 50-70 responsive npo pt Dextrose 50 ml 08/22/24 04:20 Dextrose 50%-Water Inj 50 Ml Syringe IV 09/21/24 04:19 Q15MIN PRN BG <50 OR BG <70 & pt unresponsive Heparin Sodium (Porcine) 5,000 unit 08/22/24 09:00 08/22/24 11:43 Heparin Sod Inj 5000 Unit/Ml Vial SC 09/05/24 08:59 5,000 unit BID KENNY Administration Heparin Sodium (Porcine) 3,000 unit 08/22/24 05:34 08/22/24 21:35 Heparin Sod Inj 1000 Unit/Ml Vial 10 Ml INDWELLCAT 09/05/24 05:33 3,000 unit PRN PRN Administration DIALYSIS Heparin Sodium (Porcine) 3,500 unit 08/23/24 08:26 08/23/24 10:01 Heparin Sod Inj 1000 Unit/Ml Vial 10 Ml INDWELLCAT 09/06/24 08:25 3,500 unit PRN PRN Administration Clotting Midazolam HCl 100 mg in 100 mls @ 1 mls/hr 08/21/24 19:42 Versed Pf Inj In Ns Premix IV 08/26/24 19:41 .Q24H PRN PER PROTOCOL Protocol 1 MG/HR Morphine Sulfate 100 mls @ 2 mls/hr 08/21/24 20:38 Morphine Sulfate Iv Drip 100mg/100ml IV 08/26/24 20:37 Q50H PRN PAIN (COMFORT CARE) Protocol 2 MG/HR Albumin Human 25 gm in 100 mls @ 100 mls/min 08/22/24 05:34 Albuminar-25 Ivpb IV PRN PRN DIALYSIS Dopamine HCl/Dextrose 400 mg in 250 mls @ 11.231 mls/hr 08/22/24 06:25 08/23/24 05:55 Intropin In D5w Ivpb IV 09/20/24 19:05 Not Given .[id number] KENNY Protocol 5 MCG/KG/MIN Norepinephrine/Dextrose 8 mg in 250 mls @ 5.616 mls/hr 08/22/24 06:27 08/23/24 11:00 Levophed In D5w 8mg/250ml IV 09/20/24 21:08 0.09 mcg/kg/min .Q24H PRN 10.108 mls/hr PER PROTOCOL Titration Protocol 0.05 MCG/KG/MIN Ceftriaxone Sodium/Dextrose 2 gm in 50 mls @ 100 mls/hr 08/22/24 21:00 08/22/24 21:10 Rocephin/D5w 2gm IV 08/29/24 20:59 100 mls/hr QDAY@2100 KENNY Administration Insulin Glargine 15 unit 08/22/24 09:00 08/23/24 10:00 Insulin Glargine (Lantus) 5 Unit/0.05 Ml (Per 5 Units) SC 09/21/24 08:59 Not Given BID KENNY Insulin Human Lispro 0 unit 08/22/24 06:00 08/23/24 05:55 Insulin Lispro (Admelog) 1 Unit/0.01 Ml Unit SC 09/21/24 05:59 Not Given Q6HR KENNY Protocol Magnesium Hydroxide 30 ml 08/21/24 23:37 Milk Of Magnesia Susp 30 Ml Udc PO 09/20/24 23:36 QDAY PRN CONSTIPATION Pharmacy Consult 1 each 08/22/24 08:10 Pharmacy To Consult Patient XX 09/21/24 08:09 PRN PRN Starting 24Hr Continuous/Intermittent Dialysis Pharmacy Consult 1 each 08/23/24 08:21 Pharmacy To Consult Patient XX 09/22/24 08:20 PRN PRN Starting 24Hr Continuous/Intermittent Dialysis Sodium Chloride 3 ml 08/22/24 14:07 08/23/24 06:17 Sodium Chloride Rt Jing 0.9% 3 Ml Nebu INH 09/21/24 14:06 3 ml PRN PRN Administration SOLN Plan Summary: The patient is a 64-year-old male with a past medical history of hypertension, hyperlipidemia, CKD stage IIIb, diabetes, bilateral BKA's, A-fib, CAD status post stent, HFrEF with ejection fraction 10 to 15% who presented to the ED on 08/21/2024 from [facility] with altered mental status and generalized weakness. Neuro #Acute encephalopathy-resolved #Urem[place] versus infectious Patient presented with confusion and weakness from the facility. UA significant for UTI with pyuria. Additionally, renal function panel significant for azotemia with significantly elevated creatinine, lactic acidosis and hyperkalemia. Plan: -Treat underlying cause Cardiovascular #Shock, likely mixed etiology #Cardiogenic plus distributive The patient presented to the ED with a blood pressure of 77/55. Due to history of HFrEF with ejection fraction of 10 to 15%, he received only 500 cc bolus of fluids. Blood pressure continued to remain soft with a MAP lower than 65 and the patient was admitted to the ICU for pressor support. Additionally, patient does meet SIRS criteria for sepsis with urine as a source. Plan: -Currently on IV Levophed -Dopamine per cardiology -Cardiology consulted, appreciate recommendations #History of HFrEF 10-15% The patient has a history of HFrEF with last ejection fraction noted to be 10 to 15%. He is on metoprolol on outpatient basis as well as dapagliflozin. Medications currently held as patient came in bradycardic. Per cardiology, patient currently not a candidate for surgical intervention On discharge, patient will benefit from GDMT optimized with Entresto if blood pressure tolerates. Plan: -Continue to monitor -For GDMT medications once tolerable and on discharge #Sinus bradycardia Initial presentation, the patient was reported to have had bradycardia with heart rates in the 30s. EMS had given 1 dose of atropine which did not improve heart rate, transcutaneous pacing was started. Bradycardia likely due to hyperkalemia plus acidosis plus possible side effects of medications, patient is on metoprolol and amiodarone. Plan: -Continue to monitor Respiratory #Acute hypoxic respiratory failure The patient on presentation had increasing oxygen requirement, placed on 3 L of oxygen via nasal cannula. Chest x-ray shows some moderate vascular congestion, otherwise unremarkable. Likely as a result of decreased cardiac output as well as acidosis. GI #Transaminitis-improving Initial labs show slightly elevated AST and ALT, likely as a result of shock. T. bili and ALP normal Plan: -Continue to monitor LFTs Renal #Acute on chronic kidney injury-improving #Hyperkalemia-resolved #Lactic acidosis-resolved The patient has a history of stage III CKD. He is reported to have had poor oral intake in the last couple days. Likely prerenal due to decreased volume, likely progressing to ATN. Had 1 session of hemodialysis this morning, repeat labs showed improving hyperkalemia and creatinine reduction to 4.3, lactic acidosis is resolving. Nephrology consulted, patient currently on session of CRRT. 08/23/2024-had session of hemodialysis and CRRT today, currently on another session of CRRT. Plan: -Continue to monitor renal panel -Avoid nephrotoxic medications -Renally dose medications Hematology/oncology #Leukocytosis #Anemia Likely combination of iron deficiency anemia as well as anemia of chronic disease. Hemoglobin currently stable, will continue to monitor H&H and transfuse if less than 7. Endocrinology #History of type II DM The patient was on glargine 15 units twice daily at home Last A1c was 10.2 Blood glucose currently within normal limits. Plan: -ISS -Follow-up A1c -Hypoglycemic is in place -Keep blood levels between 140 and 180 ID #Sepsis secondary to UTI Patient presented with confusion, urinalysis showed turbid urine with pyuria. Urine sample not collected yesterday, still pending. Plan: -Continue IV ceftriaxone 2 g daily -Pending urine culture Urology #Hematuria Per chart review, noted the patient has had consistent hematuria for months. has also reported gross hematuria Prather does have some blood and possible clots. For now, cause unknown 08/23/2024 : No active bleeding, no blood in Prather. Renal ultrasound was done which showed findings suggestive of medical renal disease, no stones present. Health maintenance: Dispo: ICU for shock cardiogenic and likely distributive Diet: N.p.o. DVT: SC Heparin Prather: None Lines: Left IJ, peripherals Code: DNR Case was discussed with attending physician, Dr Preet Castro MD PGY-1 Disclaimer: This note was dictated by speech recognition. Minor errors in memorandum statement clerk may be present due to voice recognition software. Attending Provider Attestation/Addendum pt seen and examined, d/w resident team. In brief this is a 64yo M admitted with cardiogenic and septic shock. He is off dopamine today and on low dose levo. This AM his mental status has improved significantly and he is alert and responsive. Lungs with few scattered crackles at base, HRRR, abd s/nt/bs+, b/l BKA. He is for CRRT again today and has had only 200cc of urine in the last 24hrs. There is some drop in his hb however would only transfuse below 7. continues on abx however Uc was not sent on arrival. there is a mild transminitis in the setting of shock. awaiting formal echo, BB/melinao currently on hold. case d/w ICU team and nephrology labs, imaging, records reviewed ~40ccmin required for eval, exam, review, intervention, discussion and formulation of POC for this critically ill pt with shock at risk for further and ongoing decompensation
--- NOTE | 2024-08-23 11:59 | ESPR_ITS ---
<Statement entered by Janee Velazquez MD - 08/26/24 12:36> Patient evaluated intensive care with resident physician PGY 2 patient's continues to be intense. Hypotensive during dialysis requiring Levophed but clinically doing well cardiac goodrich no pericardial patient back in sinus rhythm heart failure well compensated patient has HFrEF with low ejection fraction NYHA functional class IV. Long-term prognosis poor short-term prognosis guarded. Will continue to monitor the patient Documentation for date of: 08/23/24 Subjective Subjective Interval history: The patient is evaluated the bedside, A O x 3, no acute distress, systolic blood pressure in the 90s, on low-dose Levophed while patient is getting CRRT. Patient is maintaining sinus rhythm, bradycardia likely precipitated by hyperkalemia, with resolution of hyperkalemia and electrolytes patient has normal rhythm, has history of A-fib but converted, recommend resuming amiodarone to maintain sinus rhythm. Exam Vital Signs Temp Pulse Resp BP Pulse Ox O2 Del Method O2 Flow Rate 98.1 F 78 17 92/55 L 100 Oxy Mask 5 08/23/24 08:43 08/23/24 11:46 08/23/24 11:00 08/23/24 11:46 08/23/24 11:00 08/22/24 18:01 08/23/24 10:26 Narrative Exam General: Alert oriented x 3, improved mental status. On nasal cannula oxygen. HEENT: Normocephalic, atraumatic, mucous membranes moist. Heart: Regular rate and rhythm, no murmurs. Lungs: Clear to auscultation with no wheezing or crackles. Abdomen: Soft, nondistended, nontender, positive bowel sounds. ?No guarding or rebound tenderness. Neurologic: patient able to move all 4 extremities. Drowsy but irritatable Extremities: Bilateral lower extremity below-knee amputations, no lower extremity edema Skin: No rash or ecchymoses. Objective Labs 08/23/24 06:41 08/23/24 06:41 Labs: Laboratory Results - last 24 hr 08/22/24 08/22/24 08/23/24 17:58 22:28 06:41 WBC 19.8 H D 17.6 H RBC 3.01 L 2.82 L Hgb 7.7 L 7.3 L Hct 24.2 L 23.1 L MCV 80 82 MCH 25.6 25.9 MCHC 31.8 31.6 RDW Std Deviation 61.7 H 63.4 H Plt Count 97 L D 125 L D Neut % (Auto) 92 H 87 H Lymph % (Auto) 4 L 8 L [place] % (Auto) 4 4 Eos % (Auto) 0 0 Baso % (Auto) 0 0 Neut # (Auto) 18.2 H 15.4 H Lymph # (Auto) 0.8 L 1.4 [place] # (Auto) 0.7 0.7 Eos # (Auto) 0.0 0.0 Baso # (Auto) 0.0 0.0 Immature Gran # (Auto) 0.08 H 0.08 H Absolute Nucleated RBC 0.00 0.00 Immature Gran % 0 1 H Nucleated RBC % 0 0 Sodium 137 135 L 135 L Potassium 4.1 D 3.5 D 3.8 Chloride 99 98 97 L Carbon Dioxide 23.6 21.4 19.1 L Anion Gap 14 16 19 H BUN 20 15 20 Creatinine 1.9 H D 1.6 H 2.2 H D Estim Creat Clear Calc Not Performed. Not Performed. 22.9 L eGFR 38 L 47 L 32 L BUN/Creatinine Ratio 11 L 9 L 9 L Glucose 82 D [address] Glu mg/dL 117 Hemoglobin A1c 5.7 Calculated Osmolality 275 270 L 275 Lactic Acid 2.0 Calcium 8.2 L 8.1 L 8.1 L Corrected Calcium 8.8 8.6 8.7 Phosphorus 2.4 Total Bilirubin 0.4 0.2 L AST 64 H 83 H ALT 130 H 133 H Alkaline Phosphatase 75 73 Total Protein 6.1 6.0 Albumin 3.3 L D 3.4 3.3 L Globulin 2.7 2.7 Albumin/Globulin Ratio 1.3 1.2 ABG Interpretation ABG results: 08/21/24 08/21/24 08/22/24 20:24 23:24 04:35 ABG pH 7.26 L ABG pCO2 31 L ABG pO2 92 ABG HCO3 14 L ABG O2 Saturation 97 ABG Base Excess -12 L VBG pH 7.32 L 7.22 L VBG pCO2 30 L 35 L VBG pO2 66 H 85 H VBG Base Excess -10 L -12 L Quality Measures Quality Measures none Advance care planning discussed with:: patient Assessment & Plan Assessment Current Active Medications: Generic Name Dose Route Start Last Admin Trade Name Freq PRN Reason Stop Dose Admin Acetaminophen 650 mg 08/21/24 23:37 Acetaminophen 325 Mg Tablet PO 09/20/24 23:36 Q4HR PRN PAIN SCALE 1-3 (mild Acetaminophen 650 mg 08/21/24 23:37 Acetaminophen Supp 650 Mg Supp AR 09/20/24 23:36 Q4HR PRN PAIN SCALE 1-3 (mild Acetylcysteine 3 ml 08/22/24 15:00 08/23/24 10:25 Acetylcysteine Rt Jing 10% 4 Ml Nebu INH 09/21/24 14:59 3 ml Q4HRRT KENNY Administration Al Hydrox/Mg Hydrox/Simethicone 30 ml 08/22/24 00:31 Mg Hyd/Al Hyd/Stephy (Maalox Reg) Susp 30 Ml Udc PO 09/20/24 23:36 Q4HR PRN Heartburn or Upset Stomach Albuterol 2.5 mg 08/22/24 15:00 08/23/24 10:24 Albuterol Rt 2.5 Mg/0.5 Ml Nebu INH 09/21/24 14:59 2.5 mg Q4HRRT KENNY Administration Dextrose 25 ml 08/22/24 04:20 08/22/24 11:43 Dextrose 50%-Water Inj 50 Ml Syringe IV 09/21/24 04:19 25 ml Q15MIN PRN Administration BG 50-70 responsive npo pt Dextrose 50 ml 08/22/24 04:20 Dextrose 50%-Water Inj 50 Ml Syringe IV 09/21/24 04:19 Q15MIN PRN BG <50 OR BG <70 & pt unresponsive Heparin Sodium (Porcine) 5,000 unit 08/22/24 09:00 08/22/24 11:43 Heparin Sod Inj 5000 Unit/Ml Vial SC 09/05/24 08:59 5,000 unit BID KENNY Administration Heparin Sodium (Porcine) 3,000 unit 08/22/24 05:34 08/22/24 21:35 Heparin Sod Inj 1000 Unit/[facility] 09/[facility] 05:33 3,000 unit PRN PRN Administration DIALYSIS Heparin Sodium (Porcine) 3,500 unit 08/23/24 08:26 08/23/24 10:01 Heparin Sod Inj 1000 Unit/Ml Vial 10 Ml [facility] 09/06/24 08:25 3,500 unit PRN PRN Administration Clotting Midazolam HCl 100 mg in 100 mls @ 1 mls/hr 08/21/24 19:42 Versed Pf Inj In Ns Premix IV 08/26/24 19:41 .Q24H PRN PER PROTOCOL Protocol 1 MG/HR Morphine Sulfate 100 mls @ 2 mls/hr 08/21/24 20:38 Morphine Sulfate Iv Drip 100mg/100ml IV 08/26/24 20:37 Q50H PRN PAIN (COMFORT CARE) Protocol 2 MG/HR Albumin Human 25 gm in 100 mls @ 100 mls/min 08/22/24 05:34 Albuminar-25 Ivpb IV PRN PRN DIALYSIS Dopamine HCl/Dextrose 400 mg in 250 mls @ 11.231 mls/hr 08/22/24 06:25 08/23/24 05:55 Intropin In D5w Ivpb IV 09/20/24 19:05 Not Given .[id number] KENNY Protocol 5 MCG/KG/MIN Norepinephrine/Dextrose 8 mg in 250 mls @ 5.616 mls/hr 08/22/24 06:27 08/23/24 11:00 Levophed In D5w 8mg/250ml IV 09/20/24 21:08 0.09 mcg/kg/min .Q24H PRN 10.108 mls/hr PER PROTOCOL Titration Protocol 0.05 MCG/KG/MIN Ceftriaxone Sodium/Dextrose 2 gm in 50 mls @ 100 mls/hr 08/22/24 21:00 08/22/24 21:10 Rocephin/D5w 2gm IV 08/29/24 20:59 100 mls/hr QDAY@2100 KENNY Administration Insulin Glargine 15 unit 08/22/24 09:00 08/23/24 10:00 Insulin Glargine (Lantus) 5 Unit/0.05 Ml (Per 5 Units) SC 09/21/24 08:59 Not Given BID KENNY Insulin Human Lispro 0 unit 08/22/24 06:00 08/23/24 05:55 Insulin Lispro (Admelog) 1 Unit/0.01 Ml Unit SC 09/21/24 05:59 Not Given Q6HR KENNY Protocol Magnesium Hydroxide 30 ml 08/21/24 23:37 Milk Of Magnesia Susp 30 Ml Udc PO 09/20/24 23:36 QDAY PRN CONSTIPATION Pharmacy Consult 1 each 08/22/24 08:10 Pharmacy To Consult Patient XX 09/21/24 08:09 PRN PRN Starting 24Hr Continuous/Intermittent Dialysis Pharmacy Consult 1 each 08/23/24 08:21 Pharmacy To Consult Patient XX 09/22/24 08:20 PRN PRN Starting 24Hr Continuous/Intermittent Dialysis Sodium Chloride 3 ml 08/22/24 14:07 08/23/24 06:17 Sodium Chloride Rt Jing 0.9% 3 Ml Nebu INH 09/21/24 14:06 3 ml PRN PRN Administration SOLN Plan Patient is a 64-year-old male past medical history of cardiogenic shock secondary to symptomatic bradycardia, precipitated by electrolyte abnormalities including hyperkalemia and metabolic acidosis, likely lactic acidosis, past medical history of HFrEF 10 to 15% EF, ischemic cardiomyopathy, history of CKD stage III, presented with acute kidney injury and hyperkalemia, nonresponding to medical therapy, requiring hemodialysis and currently on CRRT. Past medical history also pertinent for osteomyelitis and recent BKA was done, recovering from high risk surgery . #Cardiogenic shock #Symptomatic bradycardia secondary to hyperkalemia ? Currently on Levophed, dopamine was discontinued earlier today, maintaining heart rate in the 70s, sinus rhythm on telemetry, requiring inotropic support, concurrent CRRT. - Pt is in sinus rythm, wean off pressors as indicated. - close monitoring of electrolytes, target K >4 and Mag>2 - Patient is maintaining sinus rhythm, bradycardia likely precipitated by hyperkalemia, with resolution of hyperkalemia and electrolytes patient has normal rhythm, has history of A-fib but converted, recommend resuming amiodarone to maintain sinus rhythm. - continue Amiodarone 200mg bid #HFrEF EF 10 to 15% #Ischemic cardiomyopathy #JADIEL on CKD?on CRRT #Hyperkalemia #Lactic acidosis #History of osteomyelitis status post BKA #History of atrial fibrillation Care plan discussed with cardiologsit dr Florence Montanez pgy2
--- NOTE | 2024-08-23 13:42 | PD.RESPRO ---
Documentation for date of: 08/23/24 Subjective Subjective Interval history: Patient is disoriented, drowsy and not able to provide history, so most of the history is taken from chart review. Mr. Galdamez is a 64-year-old male with significant past medical history of hypertension, insulin-dependent diabetes mellitus, CAD s/p PCI, HFrEF [EF 10 to 15%], CKD stage III, bilateral below-knee amputations, atrial fibrillation [facility] in [facility] was brought to the hospital with chief complaints of worsening mentation, shortness of breath and generalized weakness for the past 2 days. Patient was noted to have heart rate dropped to 40s during transit time in the ambulance for which patient was externally paced and 2 doses of atropine was given without response. In the ED, patient was found to have heart rate of 40 with blood pressure of 80/45 mmHg for which cardiology was consulted for suspected AV block. Per quantitative equity head, there is no concern for AV block and patient was found to have junctional escape rhythm with underlying atrial fibrillation and recommended to start on Levophed and low-dose dopamine. Patient was admitted to ICU for further care. Also noted patient had decreased p.o. intake 2 days before the day of admission and abdominal discomfort. ED Course: -Initial vitals were blood pressure 111/58 mmHg, SpO2 79% with 15 L oxygen -Labs significant for Hb 8.3, potassium 7.5, bicarb 14, anion gap 19, BUN 85, creatinine 6.2, lactate 7. Urine analysis showed 5000 RBC and 2000 WBC. -Head CT was negative for acute hemorrhage and infarct. -Patient was admitted for shock requiring vasopressors Nephrology was consulted for acute on chronic kidney injury. Overnight patient received 2 hours of conventional hemo-dialysis session due to metabolic acidosis and hyperkalemia. Decided to proceed with CRRT as patient currently on pressors. 08/23/2024 Patient was seen and examined at bedside. Overall medical condition significantly improved and patient is AAO x 3 No acute overnight events. Patient is tolerating CRRT well Vitals are stable. Will continue CRRT for today Will continue to monitor renal functions Exam Vital Signs Temp Pulse Resp BP Pulse Ox O2 Del Method O2 Flow Rate 97.8 F 80 17 91/55 L 98 Oxy Mask 5 08/23/24 12:00 08/23/24 13:30 08/23/24 13:01 08/23/24 13:30 08/23/24 13:01 08/22/24 18:01 08/23/24 10:26 Narrative Exam General: Awake. HEENT: Normocephalic, atraumatic, mucous membranes moist. Heart: Regular rate and rhythm, no murmurs. Lungs: Clear to auscultation with no wheezing or crackles. Abdomen: Soft, nondistended, nontender, positive bowel sounds. ?No guarding or rebound tenderness. Neurologic: Alert and oriented x3, no gross neurological deficit, and patient able to move all 4 extremities. Extremities: No edema. Skin: No rash or ecchymoses. Objective Labs 08/23/24 06:41 08/23/24 06:41 Labs: Laboratory Results - last 24 hr 08/22/24 08/22/24 08/23/24 17:58 22:28 06:41 WBC 19.8 H D 17.6 H RBC 3.01 L 2.82 L Hgb 7.7 L 7.3 L Hct 24.2 L 23.1 L MCV 80 82 MCH 25.6 25.9 MCHC 31.8 31.6 RDW Std Deviation 61.7 H 63.4 H Plt Count 97 L D 125 L D Neut % (Auto) 92 H 87 H Lymph % (Auto) 4 L 8 L [place] % (Auto) 4 4 Eos % (Auto) 0 0 Baso % (Auto) 0 0 Neut # (Auto) 18.2 H 15.4 H Lymph # (Auto) 0.8 L 1.4 [place] # (Auto) 0.7 0.7 Eos # (Auto) 0.0 0.0 Baso # (Auto) 0.0 0.0 Immature Gran # (Auto) 0.08 H 0.08 H Absolute Nucleated RBC 0.00 0.00 Immature Gran % 0 1 H Nucleated RBC % 0 0 Sodium 137 135 L 135 L Potassium 4.1 D 3.5 D 3.8 Chloride 99 98 97 L Carbon Dioxide 23.6 21.4 19.1 L Anion Gap 14 16 19 H BUN 20 15 20 Creatinine 1.9 H D 1.6 H 2.2 H D Estim Creat Clear Calc Not Performed. Not Performed. 22.9 L eGFR 38 L 47 L 32 L BUN/Creatinine Ratio 11 L 9 L 9 L Glucose 82 D [address] Glu mg/dL 117 Hemoglobin A1c 5.7 Calculated Osmolality 275 270 L 275 Lactic Acid 2.0 Calcium 8.2 L 8.1 L 8.1 L Corrected Calcium 8.8 8.6 8.7 Phosphorus 2.4 Total Bilirubin 0.4 0.2 L AST 64 H 83 H ALT 130 H 133 H Alkaline Phosphatase 75 73 Total Protein 6.1 6.0 Albumin 3.3 L D 3.4 3.3 L Globulin 2.7 2.7 Albumin/Globulin Ratio 1.3 1.2 ABG Interpretation ABG results: 08/21/24 08/21/24 08/22/24 20:24 23:24 04:35 ABG pH 7.26 L ABG pCO2 31 L ABG pO2 92 ABG HCO3 14 L ABG O2 Saturation 97 ABG Base Excess -12 L VBG pH 7.32 L 7.22 L VBG pCO2 30 L 35 L VBG pO2 66 H 85 H VBG Base Excess -10 L -12 L Quality Measures Quality Measures none Advance care planning discussed with:: patient Assessment & Plan Assessment Current Active Medications: Generic Name Dose Route Start Last Admin Trade Name Freq PRN Reason Stop Dose Admin Acetaminophen 650 mg 08/21/24 23:37 Acetaminophen 325 Mg Tablet PO 09/20/24 23:36 Q4HR PRN PAIN SCALE 1-3 (mild Acetaminophen 650 mg 08/21/24 23:37 Acetaminophen Supp 650 Mg Supp MA 09/20/24 23:36 Q4HR PRN PAIN SCALE 1-3 (mild Acetylcysteine 3 ml 08/22/24 15:00 08/23/24 10:25 Acetylcysteine Rt Jing 10% 4 Ml Nebu INH 09/21/24 14:59 3 ml Q4HRRT KENNY Administration Al Hydrox/Mg Hydrox/Simethicone 30 ml 08/22/24 00:31 Mg Hyd/Al Hyd/Stephy (Maalox Reg) Susp 30 Ml Udc PO 09/20/24 23:36 Q4HR PRN Heartburn or Upset Stomach Albuterol 2.5 mg 08/22/24 15:00 08/23/24 10:24 Albuterol Rt 2.5 Mg/0.5 Ml Nebu INH 09/21/24 14:59 2.5 mg Q4HRRT KENNY Administration Dextrose 25 ml 08/22/24 04:20 08/22/24 11:43 Dextrose 50%-Water Inj 50 Ml Syringe IV 09/21/24 04:19 25 ml Q15MIN PRN Administration BG 50-70 responsive npo pt Dextrose 50 ml 08/22/24 04:20 Dextrose 50%-Water Inj 50 Ml Syringe IV 09/21/24 04:19 Q15MIN PRN BG <50 OR BG <70 & pt unresponsive Heparin Sodium (Porcine) 5,000 unit 08/22/24 09:00 08/22/24 11:43 Heparin Sod Inj 5000 Unit/Ml Vial SC 09/05/24 08:59 5,000 unit BID KENNY Administration Heparin Sodium (Porcine) 3,000 unit 08/22/24 05:34 08/22/24 21:35 Heparin Sod Inj 1000 Unit/Ml Vial 10 Ml [facility] 09/05/24 05:33 3,000 unit PRN PRN Administration DIALYSIS Heparin Sodium (Porcine) 3,500 unit 08/23/24 08:26 08/23/24 10:01 Heparin Sod Inj 1000 Unit/[facility] 08:25 3,500 unit PRN PRN Administration Clotting Midazolam HCl 100 mg in 100 mls @ 1 mls/hr 08/21/24 19:42 Versed Pf Inj In Ns Premix IV 08/26/24 19:41 .Q24H PRN PER PROTOCOL Protocol 1 MG/HR Morphine Sulfate 100 mls @ 2 mls/hr 08/21/24 20:38 Morphine Sulfate Iv Drip 100mg/100ml IV 08/26/24 20:37 Q50H PRN PAIN (COMFORT CARE) Protocol 2 MG/HR Albumin Human 25 gm in 100 mls @ 100 mls/min 08/22/24 05:34 Albuminar-25 Ivpb IV PRN PRN DIALYSIS Dopamine HCl/Dextrose 400 mg in 250 mls @ 11.231 mls/hr 08/22/24 06:25 08/23/24 05:55 Intropin In D5w Ivpb IV 09/20/24 19:05 Not Given .[id number] KENNY Protocol 5 MCG/KG/MIN Norepinephrine/Dextrose 8 mg in 250 mls @ 5.616 mls/hr 08/22/24 06:27 08/23/24 13:00 Levophed In D5w 8mg/250ml IV 09/20/24 21:08 0.09 mcg/kg/min .Q24H PRN 10.108 mls/hr PER PROTOCOL Titration Protocol 0.05 MCG/KG/MIN Ceftriaxone Sodium/Dextrose 2 gm in 50 mls @ 100 mls/hr 08/22/24 21:00 08/22/24 21:10 Rocephin/D5w 2gm IV 08/29/24 20:59 100 mls/hr QDAY@2100 KENNY Administration Insulin Glargine 15 unit 08/22/24 09:00 08/23/24 10:00 Insulin Glargine (Lantus) 5 Unit/0.05 Ml (Per 5 Units) SC 09/21/24 08:59 Not Given BID KENNY Insulin Human Lispro 0 unit 08/22/24 06:00 08/23/24 12:06 Insulin Lispro (Admelog) 1 Unit/0.01 Ml Unit SC 09/21/24 05:59 Not Given Q6HR KENNY Protocol Magnesium Hydroxide 30 ml 08/21/24 23:37 Milk Of Magnesia Susp 30 Ml Udc PO 09/20/24 23:36 QDAY PRN CONSTIPATION Pharmacy Consult 1 each 08/22/24 08:10 Pharmacy To Consult Patient XX 09/21/24 08:09 PRN PRN Starting 24Hr Continuous/Intermittent Dialysis Pharmacy Consult 1 each 08/23/24 08:21 Pharmacy To Consult Patient XX 09/22/24 08:20 PRN PRN Starting 24Hr Continuous/Intermittent Dialysis Sodium Chloride 3 ml 08/22/24 14:07 08/23/24 06:17 Sodium Chloride Rt Jing 0.9% 3 Ml Nebu INH 09/21/24 14:06 3 ml PRN PRN Administration SOLN Plan A 64-year-old male with significant past medical history of hypertension, insulin-dependent diabetes mellitus, CAD s/p PCI, HFrEF [EF 10 to 15%], CKD stage III, bilateral below-knee amputations, atrial fibrillation [facility] in [facility] was brought to the hospital with chief complaints of worsening mentation, shortness of breath and generalized weakness for the past 2 days. # Acute on chronic kidney disease, stage IIIb Likely prerenal versus ATN in the setting of shock -Patient presented to the hospital with the complaints of shortness of breath worsening mentation and per patient's patient had abdominal pain and foul-smelling urine. -Baseline creatinine as of 07/2024 is 2.4 -On the day of admission, 08/21/2024, creatinine is 6.3 -Urine analysis showed turbid urine with 2+ proteinuria, 3+ blood, 5180 RBC, 1928 WBC Plan -Patient got CRRT on 08/22 and one more session will be done today -Monitor renal functions and avoid nephrotoxic medications -Continue antibiotics # Hyperkalemia, resolved # Hyperphosphatemia, resolved # Lactic acidosis, resolved -Found to have potassium of 7.5 at the time of admission -On 08/23/2024, potassium is 3.8, phosphorus 2.4, lactate 2 -Patient is currently on CRRT and recommended to monitor electrolytes #Acute encephalopathy 2/2 UTI #Chronic right parietal stroke #Shock #Acute hypoxic respiratory failure. #Complicated UTI #Chronic anemia #IDDM #Elevated LFT's To be treated per ICU team Thank you for allowing us to involved in the care of the patient Patient plan of care was discussed with the attending physician, Dr. Marian Gates, PGY1 Attending Provider Attestation/Addendum Patient seen and examined with resident physician Dr. Pollard. Note reviewed, agree with findings and recommendations. Patient with sepsis and JADIEL. On broad-spectrum antibiotics. Patient received 2 hours of conventional hemodialysis overnight due to metabolic acidosis and hyperkalemia. Urine output still remains low. Currently on pressors. Decided to proceed with CRRT. Patient tolerated CRRT yesterday. More alert and awake today. Daughter at bedside. Critical care time spent more than 40 minutes regarding plan of care and disease management. Please see CRRT flowsheet. CRRT for 10 hours, 3K, 39 bicarbonate, blood flow 100 to 150 mL/min, tight heparin, dialysate flow rate 100 mL/min, saline flush 50 mL/h. Plan of care discussed with ICU team and Dr. Oviedo.
[2024-08-23 19:01] LABS: Albumin, Serum 3.2 gm/dL (3.4-4.8); Anion Gap 12 (7-16); BUN/Creatinine Ratio 9 Ratio (12-20); Blood Urea Nitrogen 7 mg/dL (9-23); Calcium 8.4 mg/dL (8.3-10.6); Carbon Dioxide 22.7 mMol/L (20.0-31.0); Chloride 102 mMol/L (98-107); Creatinine (Component) 0.8 mg/dL (0.6-1.3); Glucose 99 mg/dL (74-106); Osmolality,Calculated 271 (275-295); Phosphorous 1.3 mg/dL (2.4-5.1); Potassium 3.3 mMol/L (3.4-5.1); Sodium 137 mMol/L (136-145); eGFR > 60 See Note
[2024-08-23] MEDS: HEPARIN SOD INJ 1000 UNIT/ML VIAL 10 ML 3000 UNIT INDWELLCAT (20:17)
[2024-08-23] MEDS: cefTRIAXone/D5w 2gm 2 GM/50 ML BAG IV (21:29)
[2024-08-23] MEDS: HEPARIN SOD INJ 5000 UNIT/ML VIAL SC (21:29)
[2024-08-24] VITALS (67 sets, daily range): BP systolic 82–116; BP diastolic 39–64; PULSE 71–87; RESP 14–97; TEMP 36.1–36.9; O2SAT 88–100; BMI 31.1
[2024-08-24] MEDS: ALBUTEROL RT 2.5 MG/0.5 ML NEBU INH ×6 (03:05→22:40)
[2024-08-24] MEDS: ACETYLCYSTEINE RT SOL 10% 4 ML NEBU 3 ML INH ×6 (03:05→22:40)
[2024-08-24 05:37] LABS: Basophils % (Auto) 0 % (0-2.5); Eosinophils % (Auto) 0 % (0-10); Hematocrit 22.3 % (41.0-53.0); Immature Granulocytes % (Auto) 1 % (0-0); Immature Granulocytes Auto 0.08 Thou/mm3 (0.00-0.00); Lymphocytes # (Auto) 0.6 Thou/mm3 (1.0-4.8); Lymphocytes % (Auto) 4 % (10-50); Mean Corpuscular HGB Conc 31.4 g/dl (31.0-37.0); Mean Corpuscular Volume 83 fL (80-100); Monocytes # (Auto) 0.6 Thou/mm3 (0.0-0.8); Monocytes % (Auto) 4 % (0-12); Neutrophils # (Auto) 12.9 Thou/mm3 (1.8-7.7); Neutrophils % (Auto) 91 % (37-80); Nucleated Red Blood Cell % 0 /100 WBC (0); Platelet Count 98 Thou/mm3 (140-440); RDW Standard Deviation 63.5 fL (35.1-43.9); Red Blood Count 2.69 Miln/mm3 (4.50-5.90); White Blood Count 14.3 Thou/mm3 (3.8-10.6)
[2024-08-24 06:08] LABS: Alanine Aminotransferase 91 U/L (10-49); Albumin, Serum 3.3 gm/dL (3.4-4.8); Albumin/Globulin Ratio 1.2 (1.2-2.2); Alkaline Phosphatase 77 U/L (46-116); Anion Gap 20 (7-16); Aspartate Amino Transferase 53 U/L (0-34); BUN/Creatinine Ratio 9 Ratio (12-20); Bilirubin,Total 0.3 mg/dL (0.3-1.2); Blood Urea Nitrogen 14 mg/dL (9-23); Calcium 8.4 mg/dL (8.3-10.6); Carbon Dioxide 17.1 mMol/L (20.0-31.0); Chloride 99 mMol/L (98-107); Creatinine (Component) 1.5 mg/dL (0.6-1.3); Globulin 2.7 gm/dL (2.3-3.5); Glucose 131 mg/dL (74-106); Osmolality,Calculated 274 (275-295); Potassium 3.3 mMol/L (3.4-5.1); Sodium 136 mMol/L (136-145); eGFR 51 See Note
[2024-08-24 08:52] LABS: Lactate (Lactic Acid) 0.8 mMol/L (0.4-2.0)
[2024-08-24] MEDS: HEPARIN SOD INJ 5000 UNIT/ML VIAL SC ×2 (08:52→20:51)
[2024-08-24] MEDS: POTASSIUM CHLORIDE 10% 20 MEQ/15 ML UDC 40 MEQ PO (08:52)
[2024-08-24 08:53] LABS: Base Excess, Venous -8 (-3-3); O2 Saturation, Venous 97 % (96-97); PCO2, Venous 31 mmHg (36-56); PO2, Venous 80 mmHg (15-58); pH, Venous 7.36 (7.33-7.66)
[2024-08-24] MEDS: FERROUS SULF 325 MG TABLET PO (08:53)
[2024-08-24 09:01] LABS: Beta Hydroxybutyrate > 6.4 mmol/L (<0.6)
[2024-08-24 09:14] LABS: Magnesium 1.9 mg/dL (1.6-2.6); Phosphorous 2.9 mg/dL (2.4-5.1)
[2024-08-24] MEDS: DEXTROSE 10%-WATER 500 ML 60 ML IV (10:34)
[2024-08-24] MEDS: POTASSIUM CHLORIDE 10% 20 MEQ/15 ML UDC PO (11:30)
[2024-08-24] MEDS: MIDODRINE 5 MG TABLET 10 MG PO ×2 (11:31→17:20)
--- NOTE | 2024-08-24 11:56 | ESPR_ITS ---
Documentation for date of: 08/24/24 Subjective Subjective Interval history: Mr. Galdamez is a 64-year-old male with significant past medical history of hypertension, insulin-dependent diabetes mellitus, CAD s/p PCI, HFrEF [EF 10 to 15%], CKD stage III, bilateral below-knee amputations, atrial fibrillation living in half-way facility was brought to the hospital with chief complaints of worsening mentation, shortness of breath and generalized weakness for the past 2 days. Patient was noted to have heart rate dropped to 40s during transit time in the ambulance for which patient was externally paced and 2 doses of atropine was given without response. In the ED, patient was found to have heart rate of 40 with blood pressure of 80/45 mmHg for which cardiology was consulted for suspected AV block. Per foreign food specialty cook, there is no concern for AV block and patient was found to have junctional escape rhythm with underlying atrial fibrillation and recommended to start on Levophed and low-dose dopamine. Patient was admitted to ICU for further care. Also noted patient had decreased p.o. intake 2 days before the day of admission and abdominal discomfort. ED Course: -Initial vitals were blood pressure 111/58 mmHg, SpO2 79% with 15 L oxygen -Labs significant for Hb 8.3, potassium 7.5, bicarb 14, anion gap 19, BUN 85, creatinine 6.2, lactate 7. Urine analysis showed 5000 RBC and 2000 WBC. -Head CT was negative for acute hemorrhage and infarct. -Patient was admitted for shock requiring vasopressors Nephrology was consulted for acute on chronic kidney injury. Overnight patient received 2 hours of conventional hemo-dialysis session due to metabolic acidosis and hyperkalemia. Decided to proceed with CRRT as patient currently on pressors. 08/24/2024 Patient was seen and examined at bedside. Overall medical condition significantly improved and patient has been alert and awake. Currently sleeping. Off pressors. Hold off on CRRT. Labs and medications reviewed. No events overnight. Will continue to monitor renal functions-if no urine output-will need conventional dialysis. Review of Systems Review of Systems Narrative Review of Systems: Limited as patient is sleeping. Per RN no chest pain, no shortness of breath. Urine output very minimal. Exam Vital Signs Temp Pulse Resp BP Pulse Ox O2 Del Method O2 Flow Rate 36.4 C 76 20 90/53 L 95 Oxy Mask 1 08/24/24 08:00 08/24/24 11:31 08/24/24 11:00 08/24/24 11:31 08/24/24 11:00 08/22/24 18:01 08/23/24 22:40 Narrative Exam GENERAL APPEARANCE: Patient currently seen in ICU. Off pressors. On D5 10 drip. NECK: Neck supple, no JVD or bruit CARDIOVASCULAR: Heart regular, no murmurs LUNGS/CHEST: Chest clear to auscultation. No rales, rhonchi, wheezing ABDOMEN: Soft, nontender, nondistended. No masses. Normal bowel sounds. EXTREMITIES: No edema, clubbing or cyanosis. SKIN: Skin exam normal without any rashes - ++ dialysis catheter MUSCULOSKELETAL: In bed NEUROLOGICAL : Sleeping Objective Labs 08/25/24 04:22 08/25/24 04:22 Labs: Laboratory Results - last 24 hr 08/23/24 08/24/24 08/24/24 18:31 04:57 08:40 WBC 14.3 H RBC 2.69 L Hgb 7.0 L Hct 22.3 L MCV 83 MCH 26.0 MCHC 31.4 RDW Std Deviation 63.5 H Plt Count 98 L D Neut % (Auto) 91 H Lymph % (Auto) 4 L Pacific % (Auto) 4 Eos % (Auto) 0 Baso % (Auto) 0 Neut # (Auto) 12.9 H Lymph # (Auto) 0.6 L [place] # (Auto) 0.6 Eos # (Auto) 0.0 Baso # (Auto) 0.0 Immature Gran # (Auto) 0.08 H Absolute Nucleated RBC 0.00 Immature Gran % 1 H Nucleated RBC % 0 VBG pH 7.36 VBG pCO2 31 L VBG pO2 80 H VBG O2 Sat (Catherine) 97 VBG Base Excess -8 L Sodium 137 136 Potassium 3.3 L D 3.3 L Chloride 102 99 Carbon Dioxide 22.7 17.1 L Anion Gap 12 20 H BUN 7 L 14 Creatinine 0.8 D 1.5 H D Estim Creat Clear Calc 77.0 41.0 L eGFR > 60 51 L BUN/Creatinine Ratio 9 L 9 L Glucose 99 D 131 H Calculated Osmolality 271 L 274 L Lactic Acid 0.8 Calcium 8.4 8.4 Corrected Calcium 9.0 9.0 Phosphorus 1.3 L 2.9 Magnesium 1.9 Total Bilirubin 0.3 AST 53 H ALT 91 H Alkaline Phosphatase 77 Total Protein 6.0 Albumin 3.2 L 3.3 L Globulin 2.7 Albumin/Globulin Ratio 1.2 Beta-Hydroxybutyrate/Acetoacetate > 6.4 H Blood Type Antibody Screen Blood Bank Wristband ID 08/24/24 09:05 WBC RBC Hgb Hct MCV MCH MCHC RDW Std Deviation Plt Count Neut % (Auto) Lymph % (Auto) Pacific % (Auto) Eos % (Auto) Baso % (Auto) Neut # (Auto) Lymph # (Auto) [place] # (Auto) Eos # (Auto) Baso # (Auto) Immature Gran # (Auto) Absolute Nucleated RBC Immature Gran % Nucleated RBC % VBG pH VBG pCO2 VBG pO2 VBG O2 Sat (Catherine) VBG Base Excess Sodium Potassium Chloride Carbon Dioxide Anion Gap BUN Creatinine Estim Creat Clear Calc eGFR BUN/Creatinine Ratio Glucose Calculated Osmolality Lactic Acid Calcium Corrected Calcium Phosphorus Magnesium Total Bilirubin AST ALT Alkaline Phosphatase Total Protein Albumin Globulin Albumin/Globulin Ratio Beta-Hydroxybutyrate/Acetoacetate Blood Type AB Positive Antibody Screen NEGATIVE Blood Bank Wristband ID Yes ABG Interpretation ABG results: 08/21/24 08/21/24 08/22/24 20:24 23:24 04:35 ABG pH 7.26 L ABG pCO2 31 L ABG pO2 92 ABG HCO3 14 L ABG O2 Saturation 97 ABG Base Excess -12 L VBG pH 7.32 L 7.22 L VBG pCO2 30 L 35 L VBG pO2 66 H 85 H VBG Base Excess -10 L -12 L 08/24/24 08:40 ABG pH ABG pCO2 ABG pO2 ABG HCO3 ABG O2 Saturation ABG Base Excess VBG pH 7.36 VBG pCO2 31 L VBG pO2 80 H VBG Base Excess -8 L Assessment & Plan Additional Assessment & Plan Additional Plan: 64-year-old male with significant past medical history of hypertension, insulin-dependent diabetes mellitus, CAD s/p PCI, HFrEF [EF 10 to 15%], CKD stage III, bilateral below-knee amputations, atrial fibrillation living in half-way facility was brought to the hospital with chief complaints of worsening mentation, shortness of breath and generalized weakness for the past 2 days. # Acute on chronic kidney disease, stage IIIb Likely prerenal versus ATN in the setting of shock -Patient presented to the hospital with the complaints of shortness of breath worsening mentation and per patient's patient had abdominal pain and foul- smelling urine. -Baseline creatinine as of 07/2024 is 2.4 -On the day of admission, 08/21/2024, creatinine is 6.3 -Urine analysis showed turbid urine with 2+ proteinuria, 3+ blood, 5180 RBC, 1928 WBC Plan -Patient got CRRT on 08/22 , 08/23 Hold CRRT today. Based on labs and if no urine output will plan for intermittent hemodialysis. Might need PermCath if no improvement in urine output. Suspect patient in ATN -Monitor renal functions and avoid nephrotoxic medications -Continue antibiotics # Hyperkalemia, resolved # Hyperphosphatemia, resolved # Lactic acidosis, resolved Marked improvement with CRRT #Acute encephalopathy 07/13 UTI-improved with CRRT- #Chronic right parietal stroke #Shock #Acute hypoxic respiratory failure. #Complicated UTI #Chronic anemia #IDDM #Elevated LFT's To be treated per ICU team Procedures Arterial Line Size (Gauge): 18
--- NOTE | 2024-08-24 12:37 | ESPR_ITS ---
<Statement entered by Janee Velazquez MD - 08/26/24 12:36> The patient examined evaluated by me personally patient appears to clinically doing better no chest pain shortness of breath cardiac goodrich stable heart failure well compensated not on vasopressors anymore midodrine was started for blood we will restart the patient amiodarone for ventricular dysrhythmias possibly condition remains stable but long-term prognosis poor patient not a candidate for ICD implant instability at low ejection fraction because of possible and poor short-term prognosis the patient and the treatment plan recommendation as documented by PGY 3 Documentation for date of: 08/24/24 Subjective Subjective Interval history: Overnight events, lab/imaging results, and notes reviewed. Patient examined bedside, resting well without any complaints today. Vasopressors have been stopped, MAP at time of examination was 65. Given concerns of bradycardia, will recommend amiodarone 200mg once daily (reduced from patient's home BID dose) to prevent arrhythmias such as ventricular tachycardia and atrial fibrillation. ICD not indicated in this patient given history of NYHA Class IV with drug- refractory CHF and terminal heart failure with estimated survival time < 6 months. Exam Vital Signs Temp Pulse Resp BP Pulse Ox O2 Del Method O2 Flow Rate 97.0 F 78 20 89/52 L 96 Oxy Mask 1 08/24/24 12:00 08/24/24 12:00 08/24/24 12:00 08/24/24 12:00 08/24/24 12:00 08/22/24 18:01 08/23/24 22:40 Narrative Exam General: AOx3, cooperative, in no acute distress HEENT: Atraumatic/normocephalic, RUPERT Heart: RRR, S1 and S2 without clicks or murmurs Lungs: Clear on auscultation bilaterally, no difficulty breathing Abdomen: Soft, nontender. Bowel sounds present on all quadrants Skin: Bilateral lower extremity BKAs, no edema or cyanosis noted Neuro: No focal neurological deficits noted on appearance Objective Labs 08/24/24 04:57 08/24/24 04:57 Labs: Laboratory Results - last 24 hr 08/23/24 08/24/24 08/24/24 18:31 04:57 08:40 WBC 14.3 H RBC 2.69 L Hgb 7.0 L Hct 22.3 L MCV 83 MCH 26.0 MCHC 31.4 RDW Std Deviation 63.5 H Plt Count 98 L D Neut % (Auto) 91 H Lymph % (Auto) 4 L [place] % (Auto) 4 Eos % (Auto) 0 Baso % (Auto) 0 Neut # (Auto) 12.9 H Lymph # (Auto) 0.6 L [place] # (Auto) 0.6 Eos # (Auto) 0.0 Baso # (Auto) 0.0 Immature Gran # (Auto) 0.08 H Absolute Nucleated RBC 0.00 Immature Gran % 1 H Nucleated RBC % 0 VBG pH 7.36 VBG pCO2 31 L VBG pO2 80 H VBG O2 Sat (Catherine) 97 VBG Base Excess -8 L Sodium 137 136 Potassium 3.3 L D 3.3 L Chloride 102 99 Carbon Dioxide 22.7 17.1 L Anion Gap 12 20 H BUN 7 L 14 Creatinine 0.8 D 1.5 H D Estim Creat Clear Calc 77.0 41.0 L eGFR > 60 51 L BUN/Creatinine Ratio 9 L 9 L Glucose 99 D 131 H Calculated Osmolality 271 L 274 L Lactic Acid 0.8 Calcium 8.4 8.4 Corrected Calcium 9.0 9.0 Phosphorus 1.3 L 2.9 Magnesium 1.9 Total Bilirubin 0.3 AST 53 H ALT 91 H Alkaline Phosphatase 77 Total Protein 6.0 Albumin 3.2 L 3.3 L Globulin 2.7 Albumin/Globulin Ratio 1.2 Beta-Hydroxybutyrate/Acetoacetate > 6.4 H Blood Type Antibody Screen Blood Bank Wristband ID 08/24/24 09:05 WBC RBC Hgb Hct MCV MCH MCHC RDW Std Deviation Plt Count Neut % (Auto) Lymph % (Auto) [place] % (Auto) Eos % (Auto) Baso % (Auto) Neut # (Auto) Lymph # (Auto) [place] # (Auto) Eos # (Auto) Baso # (Auto) Immature Gran # (Auto) Absolute Nucleated RBC Immature Gran % Nucleated RBC % VBG pH VBG pCO2 VBG pO2 VBG O2 Sat (Catherine) VBG Base Excess Sodium Potassium Chloride Carbon Dioxide Anion Gap BUN Creatinine Estim Creat Clear Calc eGFR BUN/Creatinine Ratio Glucose Calculated Osmolality Lactic Acid Calcium Corrected Calcium Phosphorus Magnesium Total Bilirubin AST ALT Alkaline Phosphatase Total Protein Albumin Globulin Albumin/Globulin Ratio Beta-Hydroxybutyrate/Acetoacetate Blood Type AB Positive Antibody Screen NEGATIVE Blood Bank Wristband ID Yes ABG Interpretation ABG results: 08/21/24 08/21/24 08/22/24 20:24 23:24 04:35 ABG pH 7.26 L ABG pCO2 31 L ABG pO2 92 ABG HCO3 14 L ABG O2 Saturation 97 ABG Base Excess -12 L VBG pH 7.32 L 7.22 L VBG pCO2 30 L 35 L VBG pO2 66 H 85 H VBG Base Excess -10 L -12 L 08/24/24 08:40 ABG pH ABG pCO2 ABG pO2 ABG HCO3 ABG O2 Saturation ABG Base Excess VBG pH 7.36 VBG pCO2 31 L VBG pO2 80 H VBG Base Excess -8 L Quality Measures Quality Measures none Advance care planning discussed with:: patient Assessment & Plan Assessment Current Active Medications: Generic Name Dose Route Start Last Admin Trade Name Freq PRN Reason Stop Dose Admin Acetaminophen 650 mg 08/21/24 23:37 Acetaminophen 325 Mg Tablet PO 09/20/24 23:36 Q4HR PRN PAIN SCALE 1-3 (mild Acetaminophen 650 mg 08/21/24 23:37 Acetaminophen Supp 650 Mg Supp VT 09/20/24 23:36 Q4HR PRN PAIN SCALE 1-3 (mild Acetylcysteine 3 ml 08/22/24 15:00 08/24/24 10:29 Acetylcysteine Rt Jing 10% 4 Ml Nebu INH 09/21/24 14:59 3 ml Q4HRRT KENNY Administration Al Hydrox/Mg Hydrox/Simethicone 30 ml 08/22/24 00:31 Mg Hyd/Al Hyd/Stephy (Maalox Reg) Susp 30 Ml Udc PO 09/20/24 23:36 Q4HR PRN Heartburn or Upset Stomach Albuterol 2.5 mg 08/22/24 15:00 08/24/24 10:29 Albuterol Rt 2.5 Mg/0.5 Ml Nebu INH 09/21/24 14:59 2.5 mg Q4HRRT KENNY Administration Dextrose 25 ml 08/22/24 04:20 08/22/24 11:43 Dextrose 50%-Water Inj 50 Ml Syringe IV 09/21/24 04:19 25 ml Q15MIN PRN Administration BG 50-70 responsive npo pt Dextrose 50 ml 08/22/24 04:20 Dextrose 50%-Water Inj 50 Ml Syringe IV 09/21/24 04:19 Q15MIN PRN BG <50 OR BG <70 & pt unresponsive Ferrous Sulfate 325 mg 08/24/24 08:30 08/24/24 08:53 Ferrous Sulf 325 Mg Tablet PO 09/23/24 08:29 325 mg QOD KENNY Administration Heparin Sodium (Porcine) 5,000 unit 08/22/24 09:00 08/24/24 08:52 Heparin Sod Inj 5000 Unit/Ml Vial SC 09/05/24 08:59 5,000 unit BID KENNY Administration Heparin Sodium (Porcine) 3,000 unit 08/22/24 05:34 08/23/24 20:17 Heparin Sod Inj 1000 Unit/Ml Vial 10 Ml [facility] 09/05/24 05:33 3,000 unit PRN PRN Administration DIALYSIS Heparin Sodium (Porcine) 3,500 unit 08/23/24 08:26 08/23/24 10:01 Heparin Sod Inj 1000 Unit/Ml Vial 10 Ml [facility] 09/06/24 08:25 3,500 unit PRN PRN Administration Clotting Albumin Human 25 gm in 100 mls @ 100 mls/min 08/22/24 05:34 Albuminar-25 Ivpb IV PRN PRN DIALYSIS Dextrose 500 mls @ 60 mls/hr 08/24/24 10:30 08/24/24 10:34 D10w IV 08/24/24 18:49 60 mls/hr .Q8H20M ONE Administration Ceftriaxone Sodium 1,000 mg/ 50 mls @ 100 mls/hr 08/25/24 09:00 Sodium Chloride IV 09/01/24 08:59 QDAY [facility] Insulin Glargine 15 unit 08/22/24 09:00 08/23/24 10:00 Insulin Glargine (Lantus) 5 Unit/0.05 Ml (Per 5 Units) SC 09/21/24 08:59 Not Given BID [facility] Insulin Human Lispro 0 unit 08/24/24 14:00 Insulin Lispro (Admelog) 1 Unit/0.01 Ml Unit SC 09/23/24 13:59 Q4HR [facility] Protocol Magnesium Hydroxide 30 ml 08/21/24 23:37 Milk Of Magnesia Susp 30 Ml Udc PO 09/20/24 23:36 QDAY PRN CONSTIPATION Midodrine 10 mg 08/24/24 11:00 08/24/24 11:31 Midodrine 5 Mg Tablet PO 09/23/24 10:59 10 mg Q6HR KENNY Administration Pharmacy Consult 1 each 08/23/24 08:21 Pharmacy To Consult Patient XX 09/22/24 08:20 PRN PRN Starting 24Hr Continuous/Intermittent Dialysis Sodium Chloride 3 ml 08/22/24 14:07 08/23/24 06:17 Sodium Chloride Rt Jing 0.9% 3 Ml Nebu INH 09/21/24 14:06 3 ml PRN PRN Administration SOLN Plan Patient is a 64-year-old male past medical history of HFrEF (EF 10-15%), ischemic cardiomyopathy, CKD IIIb, CAD s/p stents, atrial fibrillation, NSVT, hypertension, hyperlipidemia, IDDM2, and bilateral BKAs who was admitted to the ICU for cardiogenic shock and acute on chronic renal failure requiring vasopressor support and CRRT. Patient was noted to have severe bradycardia in 40s both in ED and en route to ED, given atropine x2 however bradycardia did not resolve, external pacing was initiated. Cardiology team consulted for severe bradycardia in setting of hyperkalemia 7.5. #Cardiogenic shock #Symptomatic bradycardia secondary to hyperkalemia #HFrEF EF (10-15%) #Ischemic cardiomyopathy #History of Atrial fibrillation #History of NSVT - En route to ED and in ED, heart rate in 40s. Atropine x2 did not improve bradycardia, external pacing initiated. - Levophed and Dopamine started, have been weaned off - Nephrology team following, CRRT per nephrology recommendations - Monitor electrolytes, goal of K > 4 and Magnesium > 2 - Bradycardia likely caused by hyperkalemia - Given history of atrial fibrillation and NSVT, advise resuming amiodarone. For concerns of bradycardia, advise 200mg amiodarone qday (reduced from patient's home BID dose). Given bradycardia and hypotension concerns, agree with holding home metoprolol for now until clinical status improves - ICD not indicated in patient for following reasons: Patient has NYHA Class IV with drug-refractory CHF, reasonable expectation of survival with an acceptable functional status < 6 months. #JADIEL on CKD?on CRRT #Hyperkalemia #Lactic acidosis #History of osteomyelitis status post BKA #History of atrial fibrillation - Management per primary team Patient case discussed with attending physician Dr. Marcus Raman, DO PGY-3
--- NOTE | 2024-08-24 13:28 | PC.SS ---
SS met with patient and spouse Shreya Galdamez at bedside. Patient?s spouse Shreya provided information for initial assessment. She confirmed patient demographic information and stated patient is a resident at [facility]. Patient?s spouse Shreya stated she is patient?s primary medical surrogate decision maker. Patient?s spouse Shreya explained patient is max assist with ADLs and ambulation; staff supports patient with both. PCP: Dr. Jalil Le. Discharge plan: Return to [facility] Primary medical surrogate decision maker: Spouse Shreya Galdamez [phone]
--- NOTE | 2024-08-24 13:29 | ESPR_ITS ---
<Statement entered by Jeffery Anand MD - 08/24/24 17:02> Patient was examined bedside this morning , he is AOx3 . he is off pressores since 8 am .his Beta hydroxy butarate was high, most likely sec to starvation ketoacidosis , we started him on D10 @60 . we will follow up on renal pannel, which showed decrease in BHB and gap closed, so the pt had starvation ketoacidodis . will continue to feed him . restarted amio with daily dose . I discussed with and supervised my co-resident involved in the care of this patient. I agree with the assessment and plan as documented above. Jeffery Anand,PGY-3 Disclaimer: Despite multiple revisions, due to the dictation software being used, the document below may not be free of grammatical errors including phonetic/typographic errors. However, this does not deter from our commitment to providing health care in the patient's best interest in mind. Documentation for date of: 08/24/24 Subjective Subjective Interval history: Patient seen and examined at bedside. Overnight, said to have been slightly altered, otherwise, no acute overnight events. Urine output all day yesterday, 125 cc. At bedside today, patient is AAOx3, has no new complaints. MAP over 65, off pressors Completed another labs reviewed, downtrending leukocytosis, anemia at 7, currently stable, will continue to monitor. Hypokalemia of 3.3 and creatinine at 1.5. Anion gap of 20, normal lactic acidosis, elevated BHB-patient ketosis versus euglycemic DKA. Patient was started on clear liquid diet yesterday, however only had minimal meal intake. Will start on D10 drip with glucose checks every 2 hours and repeat renal panel in 4 hours. 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 Eyes open, symetrical and celar CARDIO: No chest pain on palpation. Heart RRR, no obvious murmurs PULM: Minimal crackles bilaterally, no coughing or dyspnea, saturating 98% on room air GI: Abdomen soft, nondistended. BSx4 URO/INTERN BRAND:: No further abnormalities noted. Prather catheter in situ SKIN/MSK/EXT: Bilateral BKA, right stump has no discharge, dried blood, aprroximated skin over stump Objective Labs 08/25/24 07:22 08/25/24 04:22 Labs: Laboratory Results - last 24 hr 08/23/24 08/24/24 08/24/24 18:31 04:57 08:40 WBC 14.3 H RBC 2.69 L Hgb 7.0 L Hct 22.3 L MCV 83 MCH 26.0 MCHC 31.4 RDW Std Deviation 63.5 H Plt Count 98 L D Neut % (Auto) 91 H Lymph % (Auto) 4 L Cooke % (Auto) 4 Eos % (Auto) 0 Baso % (Auto) 0 Neut # (Auto) 12.9 H Lymph # (Auto) 0.6 L Cooke # (Auto) 0.6 Eos # (Auto) 0.0 Baso # (Auto) 0.0 Immature Gran # (Auto) 0.08 H Absolute Nucleated RBC 0.00 Immature Gran % 1 H Nucleated RBC % 0 VBG pH 7.36 VBG pCO2 31 L VBG pO2 80 H VBG O2 Sat (Catherine) 97 VBG Base Excess -8 L Sodium 137 136 Potassium 3.3 L D 3.3 L Chloride 102 99 Carbon Dioxide 22.7 17.1 L Anion Gap 12 20 H BUN 7 L 14 Creatinine 0.8 D 1.5 H D Estim Creat Clear Calc 77.0 41.0 L eGFR > 60 51 L BUN/Creatinine Ratio 9 L 9 L Glucose 99 D 131 H Calculated Osmolality 271 L 274 L Lactic Acid 0.8 Calcium 8.4 8.4 Corrected Calcium 9.0 9.0 Phosphorus 1.3 L 2.9 Magnesium 1.9 Total Bilirubin 0.3 AST 53 H ALT 91 H Alkaline Phosphatase 77 Total Protein 6.0 Albumin 3.2 L 3.3 L Globulin 2.7 Albumin/Globulin Ratio 1.2 Beta-Hydroxybutyrate/Acetoacetate > 6.4 H Blood Type Antibody Screen Blood Bank Wristband ID 08/24/24 09:05 WBC RBC Hgb Hct MCV MCH MCHC RDW Std Deviation Plt Count Neut % (Auto) Lymph % (Auto) Cooke % (Auto) Eos % (Auto) Baso % (Auto) Neut # (Auto) Lymph # (Auto) Cooke # (Auto) Eos # (Auto) Baso # (Auto) Immature Gran # (Auto) Absolute Nucleated RBC Immature Gran % Nucleated RBC % VBG pH VBG pCO2 VBG pO2 VBG O2 Sat (Catherine) VBG Base Excess Sodium Potassium Chloride Carbon Dioxide Anion Gap BUN Creatinine Estim Creat Clear Calc eGFR BUN/Creatinine Ratio Glucose Calculated Osmolality Lactic Acid Calcium Corrected Calcium Phosphorus Magnesium Total Bilirubin AST ALT Alkaline Phosphatase Total Protein Albumin Globulin Albumin/Globulin Ratio Beta-Hydroxybutyrate/Acetoacetate Blood Type AB Positive Antibody Screen NEGATIVE Blood Bank Wristband ID Yes ABG Interpretation ABG results: 08/21/24 08/21/24 08/22/24 20:24 23:24 04:35 ABG pH 7.26 L ABG pCO2 31 L ABG pO2 92 ABG HCO3 14 L ABG O2 Saturation 97 ABG Base Excess -12 L VBG pH 7.32 L 7.22 L VBG pCO2 30 L 35 L VBG pO2 66 H 85 H VBG Base Excess -10 L -12 L 08/24/24 08:40 ABG pH ABG pCO2 ABG pO2 ABG HCO3 ABG O2 Saturation ABG Base Excess VBG pH 7.36 VBG pCO2 31 L VBG pO2 80 H VBG Base Excess -8 L Quality Measures Quality Measures none Advance care planning discussed with:: patient Assessment & Plan Assessment Current Active Medications: Generic Name Dose Route Start Last Admin Trade Name Freq PRN Reason Stop Dose Admin Acetaminophen 650 mg 08/21/24 23:37 Acetaminophen 325 Mg Tablet PO 09/20/24 23:36 Q4HR PRN PAIN SCALE 1-3 (mild Acetaminophen 650 mg 08/21/24 23:37 Acetaminophen Supp 650 Mg Supp NH 09/20/24 23:36 Q4HR PRN PAIN SCALE 1-3 (mild Acetylcysteine 3 ml 08/22/24 15:00 08/24/24 10:29 Acetylcysteine Rt Jing 10% 4 Ml Nebu INH 09/21/24 14:59 3 ml Q4HRRT KENNY Administration Al Hydrox/Mg Hydrox/Simethicone 30 ml 08/22/24 00:31 Mg Hyd/Al Hyd/Stephy (Maalox Reg) Susp 30 Ml Udc PO 09/20/24 23:36 Q4HR PRN Heartburn or Upset Stomach Albuterol 2.5 mg 08/22/24 15:00 08/24/24 10:29 Albuterol Rt 2.5 Mg/0.5 Ml Nebu INH 09/21/24 14:59 2.5 mg Q4HRRT KENNY Administration Dextrose 25 ml 08/22/24 04:20 08/22/24 11:43 Dextrose 50%-Water Inj 50 Ml Syringe IV 09/21/24 04:19 25 ml Q15MIN PRN Administration BG 50-70 responsive npo pt Dextrose 50 ml 08/22/24 04:20 Dextrose 50%-Water Inj 50 Ml Syringe IV 09/21/24 04:19 Q15MIN PRN BG <50 OR BG <70 & pt unresponsive Ferrous Sulfate 325 mg 08/24/24 08:30 08/24/24 08:53 Ferrous Sulf 325 Mg Tablet PO 09/23/24 08:29 325 mg QOD KENNY Administration Heparin Sodium (Porcine) 5,000 unit 08/22/24 09:00 08/24/24 08:52 Heparin Sod Inj 5000 Unit/Ml Vial SC 09/05/24 08:59 5,000 unit BID KENNY Administration Heparin Sodium (Porcine) 3,000 unit 08/22/24 05:34 08/23/24 20:17 Heparin Sod Inj 1000 Unit/Ml Vial 10 Ml [facility] 09/05/24 05:33 3,000 unit PRN PRN Administration DIALYSIS Heparin Sodium (Porcine) 3,500 unit 08/23/24 08:26 08/23/24 10:01 Heparin Sod Inj 1000 Unit/Ml Vial 10 Ml [facility] 09/06/24 08:25 3,500 unit PRN PRN Administration Clotting Albumin Human 25 gm in 100 mls @ 100 mls/min 08/22/24 05:34 Albuminar-25 Ivpb IV PRN PRN DIALYSIS Dextrose 500 mls @ 60 mls/hr 08/24/24 10:30 08/24/24 10:34 D10w IV 08/24/24 18:49 60 mls/hr .Q8H20M ONE Administration Ceftriaxone Sodium 1,000 mg/ 50 mls @ 100 mls/hr 08/25/24 09:00 Sodium Chloride IV 09/01/24 08:59 QDAY [facility] Insulin Glargine 15 unit 08/22/24 09:00 08/23/24 10:00 Insulin Glargine (Lantus) 5 Unit/0.05 Ml (Per 5 Units) SC 09/21/24 08:59 Not Given BID [facility] Insulin Human Lispro 0 unit 08/24/24 14:00 Insulin Lispro (Admelog) 1 Unit/0.01 Ml Unit SC 09/23/24 13:59 Q4HR [facility] Protocol Magnesium Hydroxide 30 ml 08/21/24 23:37 Milk Of Magnesia Susp 30 Ml Udc PO 09/20/24 23:36 QDAY PRN CONSTIPATION Midodrine 10 mg 08/24/24 11:00 08/24/24 11:31 Midodrine 5 Mg Tablet PO 09/23/24 10:59 10 mg Q6HR KENNY Administration Pharmacy Consult 1 each 08/23/24 08:21 Pharmacy To Consult Patient XX 09/22/24 08:20 PRN PRN Starting 24Hr Continuous/Intermittent Dialysis Sodium Chloride 3 ml 08/22/24 14:07 08/23/24 06:17 Sodium Chloride Rt Jing 0.9% 3 Ml Nebu INH 09/21/24 14:06 3 ml PRN PRN Administration SOLN Plan Summary: The patient is a 64-year-old male with a past medical history of hypertension, hyperlipidemia, CKD stage IIIb, diabetes, bilateral BKA's, A-fib, CAD status post stent, HFrEF with ejection fraction 10 to 15% who presented to the ED on 08/21/2024 from [facility] with altered mental status and generalized weakness. Neuro #Acute encephalopathy-resolved #Uremic versus infectious Patient presented with confusion and weakness from the facility. UA significant for UTI with pyuria. Additionally, renal function panel significant for azotemia with significantly elevated creatinine, lactic acidosis and hyperkalemia. Cardiovascular #Shock, likely mixed etiology #Cardiogenic plus distributive The patient presented to the ED with a blood pressure of 77/55. Due to history of HFrEF with ejection fraction of 10 to 15%, he received only 500 cc bolus of fluids. Blood pressure continued to remain soft with a MAP lower than 65 and the patient was admitted to the ICU for pressor support. Additionally, patient does meet SIRS criteria for sepsis with urine as a source. 08/24/2024- Patient was on levodopa a 0.01 this morning, MAP >65, subsequently downtitrated. Started on Midodrine 10mg Q6HR. Plan: - on Levo and dopa-> off dopa - minimal levo -> titrated off and started on midodrine 10mg q6 - cx NTD however Ucx sent a few days after abx started #History of HFrEF 10-15% The patient has a history of HFrEF with last ejection fraction noted to be 10 to 15%. He is on metoprolol on outpatient basis as well as dapagliflozin. Medications currently held as patient came in bradycardic. Per cardiology, patient currently not a candidate for surgical intervention On discharge, patient will benefit from GDMT optimized with Entresto if blood pressure tolerates. Per cardiology- ICD not indicated in patient for following reasons: Patient has NYHA Class IV with drug-refractory CHF, reasonable expectation of survival with an acceptable functional status < 6 months Plan: - once BP slightly improved start low dose coreg - would start entresto after able to tolerate BB - may also benefit from spirinolactone -> eval once JADIEL has improved - on dapagliflozin as outpt-> eval appropriateness of cont meds tmw - per cards no ICD -> recs are for amio for VT prevention # History of A-fib The patient has a history of A-fib on exam amiodarone, metoprolol and Eliquis. Medications initially held as patient came in with bradycardia and possibly of bleeding. Per cardiology, amiodarone is more indicated for prevention of V. tachs and recommends to resume. Plan: -currently in sinus rhythm - will resume eliquis when stable #Sinus bradycardia- resolved - likely due to Amio and BB in setting of JADIEL - currently resolved - cards recs appreciated Respiratory #Acute hypoxic respiratory failure-resolved The patient on presentation had increasing oxygen requirement, placed on 3 L of oxygen via nasal cannula. Chest x-ray shows some moderate vascular congestion, otherwise unremarkable. Likely as a result of decreased cardiac output as well as acidosis. GI #Transaminitis-improving Initial labs show slightly elevated AST and ALT, likely as a result of shock. T. bili and ALP normal Plan: -Continue to monitor LFTs for any new trends Renal #Acute on chronic kidney injury-improving #Hyperkalemia-resolved #Lactic acidosis-resolved The patient has a history of stage III CKD. He is reported to have had poor oral intake in the last couple days. Likely prerenal due to decreased volume, likely progressing to ATN. Had 1 session of hemodialysis this morning, repeat labs showed improving hyperkalemia and creatinine reduction to 4.3, lactic acidosis is resolving. Nephrology consulted, patient currently on session of CRRT. 08/24/2024-completed another session of CRRT yesterday. Labs this morning, improving creatinine at 1.5. However, patient is still in oliguric acute kidney injury. Will get nephrology recommendations for fluids/diuretics. Plan: - minimal UOP - ? IVF v lasix -> d/w nephrology -Avoid nephrotoxic medications -Renally dose medications #Anion gap metabolic acidosis Anion gap- 20. Normal lactate BHB >6.4 Plan: -Dextrose 10% drip -Glucose check 2Hr - unclear if this is a starvation ketosis vs euglycemic DKA. started on D10 and will fu on labs this afternoon - if no significant change will presume eugylcemic DKA and tx as such Hematology/oncology #Leukocytosis-improving #Anemia Likely combination of iron deficiency anemia as well as anemia of chronic disease. Hemoglobin currently stable, will continue to monitor H&H and transfuse if less than 7. Endocrinology #History of type II DM The patient was on glargine 15 units twice daily at home Last A1c was 10.2 Blood glucose currently within normal limits. Plan: -ISS -Follow-up A1c -Hypoglycemic is in place -Keep blood levels between 140 and 180 ID #Sepsis secondary to UTI Patient presented with confusion, urinalysis showed turbid urine with pyuria. Urine sample not collected yesterday, still pending. 08/24/2024- Urine culture pending although might be unreliable as sample was taken after 2 days of antibiotics. Plan: -Reduce IV Ceftriaxone 1g daily -Pending urine culture Urology #Hematuria Per chart review, noted the patient has had consistent hematuria for months. has also reported gross hematuria Prather does have some blood and possible clots. For now, cause unknown 08/23/2024 : No active bleeding, no blood in Prather. Renal ultrasound was done which showed findings suggestive of medical renal disease, no stones present. Health maintenance: Dispo: ICU for shock cardiogenic and likely distributive. s/p pressors, HD and CRRT. Diet: Clear liquid diet DVT: SC Heparin Prather: In-Situ Lines: Left IJ, peripherals Code: DNR Case was discussed with Dr Anand PGY-3 and attending physician, Dr Preet Castro MD PGY-1 Disclaimer: This note was dictated by speech recognition. Minor errors in balloon maker may be present due to voice recognition software. Attending Provider Attestation/Addendum Patient seen and examined, discussed with resident. In brief this is a 60-year-old male admitted to the ICU with shock secondary to both cardiogenic as well as distributive etiologies. On arrival he was bradycardic and started on a dopamine drip. It is unclear if the bradycardia was due to his elevated potassium or more likely combination of Amio and metoprolol in the setting of acute renal failure. These meds have been on hold since arrival and he is off dopamine. Will touch base with cardiology as it is currently unclear if the amiodarone was for his A-fib versus VT. Yesterday he was on CRRT and tolerated well. This morning he is on minimal Levophed at 0.01 mcg/kg/min with a MAP above 60. Will start him on midodrine and titrate Levophed off. He presented with acute kidney injury and continues to have minimal urinary output. Over the last 24 hours she has produced 120 cc of urine. He is currently being followed by nephrology. He was noted to have an anion gap today. A lactate was checked and found to be within normal limits, beta hydroxy was checked and found to be elevated at greater than 6.4. It is unclear if the patient's ketosis is a starvation ketosis versus a euglycemic DKA. Will start him on D10 and reevaluate. If there is no significant improvement we will treat as euglycemic DKA and start on DKA protocol. Will obtain repeat labs. Overall the patient's mental status improved significantly since arrival. case d/w ICU team labs, imaging, records reviewed ~42ccmin required for evaluation, exam, review, intervention, discussion of formulation of plan of care for [id number] gentleman at high risk for further and ongoing decompensation
[2024-08-24 14:33] LABS: Alanine Aminotransferase 91 U/L (10-49); Albumin, Serum 3.1 gm/dL (3.4-4.8); Albumin/Globulin Ratio 1.2 (1.2-2.2); Alkaline Phosphatase 73 U/L (46-116); Anion Gap 15 (7-16); Aspartate Amino Transferase 37 U/L (0-34); BUN/Creatinine Ratio 8 Ratio (12-20); Bilirubin,Total 0.3 mg/dL (0.3-1.2); Blood Urea Nitrogen 18 mg/dL (9-23); Calcium 8.3 mg/dL (8.3-10.6); Carbon Dioxide 19.5 mMol/L (20.0-31.0); Chloride 101 mMol/L (98-107); Creatinine (Component) 2.2 mg/dL (0.6-1.3); Estimated Creatinine Clearance 23.1 mL/min (>60); Globulin 2.5 gm/dL (2.3-3.5); Glucose 195 mg/dL (74-106); Osmolality,Calculated 277 (275-295); Sodium 135 mMol/L (136-145); Total Protein 5.6 gm/dL (5.7-8.2); eGFR 32 See Note
[2024-08-24 14:33] LABS: Beta Hydroxybutyrate 4.2 mmol/L (<0.6)
[2024-08-24] MEDS: INSULIN LISPRO (AdmeLOG) 1 UNIT/0.01 ML UNIT SC ×2 (14:57→17:20)
[2024-08-24] MEDS: AMIODARONE HCL 200 MG TABLET PO (15:31)
[2024-08-25] VITALS (53 sets, daily range): BP systolic 93–118; BP diastolic 50–69; PULSE 66–76; RESP 4–100; TEMP 36.1–36.7; O2SAT 85–100
[2024-08-25] MEDS: MIDODRINE 5 MG TABLET 10 MG PO ×4 (00:05→17:39)
[2024-08-25] MEDS: ALBUTEROL RT 2.5 MG/0.5 ML NEBU INH ×6 (02:15→23:35)
[2024-08-25] MEDS: ACETYLCYSTEINE RT SOL 10% 4 ML NEBU 3 ML INH ×6 (02:15→23:35)
[2024-08-25 04:47] LABS: Basophils % (Auto) 0 % (0-2.5); Eosinophils # (Auto) 0.2 Thou/mm3 (0.0-0.5); Eosinophils % (Auto) 2 % (0-10); Immature Granulocytes % (Auto) 1 % (0-0); Immature Granulocytes Auto 0.05 Thou/mm3 (0.00-0.00); Lymphocytes # (Auto) 0.7 Thou/mm3 (1.0-4.8); Lymphocytes % (Auto) 7 % (10-50); Mean Corpuscular HGB Conc 31.8 g/dl (31.0-37.0); Mean Corpuscular Hemoglobin 25.6 pg (25.0-35.0); Mean Corpuscular Volume 81 fL (80-100); Monocytes # (Auto) 0.5 Thou/mm3 (0.0-0.8); Monocytes % (Auto) 5 % (0-12); Neutrophils # (Auto) 8.3 Thou/mm3 (1.8-7.7); Neutrophils % (Auto) 86 % (37-80); Nucleated Red Blood Cell % 0 /100 WBC (0); Platelet Count 92 Thou/mm3 (140-440); RDW Standard Deviation 61.9 fL (35.1-43.9); Red Blood Count 2.66 Miln/mm3 (4.50-5.90); White Blood Count 9.7 Thou/mm3 (3.8-10.6)
[2024-08-25 04:49] LABS: Beta Hydroxybutyrate 0.6 mmol/L (<0.6)
[2024-08-25 04:54] LABS: Hematocrit 21.4 % (41.0-53.0); Hemoglobin 6.8 g/dL (13.5-16.0)
[2024-08-25 05:13] LABS: Alanine Aminotransferase 78 U/L (10-49); Albumin/Globulin Ratio 1.1 (1.2-2.2); Alkaline Phosphatase 71 U/L (46-116); Anion Gap 12 (7-16); Aspartate Amino Transferase < 8 U/L (0-34); BUN/Creatinine Ratio 9 Ratio (12-20); Bilirubin,Total 0.3 mg/dL (0.3-1.2); Blood Urea Nitrogen 25 mg/dL (9-23); Calcium 8.3 mg/dL (8.3-10.6); Calcium (Corrected) 9.1 mg/dL (8.5-10.1); Carbon Dioxide 22.4 mMol/L (20.0-31.0); Chloride 101 mMol/L (98-107); Creatinine (Component) 2.8 mg/dL (0.6-1.3); Estimated Creatinine Clearance 18.1 mL/min (>60); Globulin 2.7 gm/dL (2.3-3.5); Glucose 142 mg/dL (74-106); Osmolality,Calculated 276 (275-295); Potassium 3.6 mMol/L (3.4-5.1); Sodium 135 mMol/L (136-145); Total Protein 5.7 gm/dL (5.7-8.2); eGFR 24 See Note
[2024-08-25 07:54] LABS: Hematocrit 22.3 % (41.0-53.0)
[2024-08-25 07:59] LABS: Hemoglobin 7.1 g/dL (13.5-16.0)
[2024-08-25] MEDS: cefTRIAXone 1,000 MG in SODIUM CHLORIDE 0.9% (Popper) 50 ML 100 MG IV (09:08)
[2024-08-25] MEDS: CITRIC ACID/SODIUM CITR 15 ML UDC (BICITRA) 30 ML PO ×2 (09:10→21:00)
[2024-08-25] MEDS: AMIODARONE HCL 200 MG TABLET PO (09:10)
[2024-08-25] MEDS: HEPARIN SOD INJ 5000 UNIT/ML VIAL SC ×2 (09:11→21:00)
--- NOTE | 2024-08-25 10:22 | ESPR_ITS ---
Documentation for date of: 08/25/24 Subjective Subjective Interval history: Mr. Galdamez is a 64-year-old male with significant past medical history of hypertension, insulin-dependent diabetes mellitus, CAD s/p PCI, HFrEF [EF 10 to 15%], CKD stage III, bilateral below-knee amputations, atrial fibrillation living in assisted facility was brought to the hospital with chief complaints of worsening mentation, shortness of breath and generalized weakness for the past 2 days. Patient was noted to have heart rate dropped to 40s during transit time in the ambulance for which patient was externally paced and 2 doses of atropine was given without response. In the ED, patient was found to have heart rate of 40 with blood pressure of 80/45 mmHg for which cardiology was consulted for suspected AV block. Per upset operator, there is no concern for AV block and patient was found to have junctional escape rhythm with underlying atrial fibrillation and recommended to start on Levophed and low-dose dopamine. Patient was admitted to ICU for further care. Also noted patient had decreased p.o. intake 2 days before the day of admission and abdominal discomfort. ED Course: -Initial vitals were blood pressure 111/58 mmHg, SpO2 79% with 15 L oxygen -Labs significant for Hb 8.3, potassium 7.5, bicarb 14, anion gap 19, BUN 85, creatinine 6.2, lactate 7. Urine analysis showed 5000 RBC and 2000 WBC. -Head CT was negative for acute hemorrhage and infarct. -Patient was admitted for shock requiring vasopressors Nephrology was consulted for acute on chronic kidney injury. Overnight patient received 2 hours of conventional hemo-dialysis session due to metabolic acidosis and hyperkalemia. Decided to proceed with CRRT as patient currently on pressors. 08/24/2024 Patient was seen and examined at bedside. Overall medical condition significantly improved and patient has been alert and awake. Currently sleeping. Off pressors. Hold off on CRRT. Labs and medications reviewed. No events overnight. Will continue to monitor renal functions-if no urine output-will need conventional dialysis. 08/25/2024 Patient was seen and examined at the bedside in ICU No acute overnight events. Denies any other complaints Vitals are stable. Not able to produce adequate amount of urine Will do HD today in view of decreased urine output and worsening renal functions Exam Vital Signs Temp Pulse Resp BP Pulse Ox O2 Del Method O2 Flow Rate 97.9 F 68 17 107/65 96 Room Air 1 08/25/24 08:00 08/25/24 09:10 08/25/24 09:00 08/25/24 09:10 08/25/24 09:00 08/25/24 04:00 08/23/24 22:40 Narrative Exam General: Awake. Lying comfortably on the bed HEENT: Normocephalic, atraumatic, mucous membranes moist. Heart: Regular rate and rhythm, no murmurs. Lungs: Clear to auscultation with no wheezing or crackles. Abdomen: Soft, nondistended, nontender, positive bowel sounds. ?No guarding or rebound tenderness. Neurologic: Alert and oriented x3, no gross neurological deficit, and patient able to move all 4 extremities. Extremities: No edema. 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 B/L BKA Skin: No rash or ecchymoses. Objective Labs 08/26/24 05:30 08/25/24 04:22 Labs: Laboratory Results - last 24 hr 08/24/24 08/24/24 08/24/24 09:05 13:43 14:15 WBC RBC Hgb Hct MCV MCH MCHC RDW Std Deviation Plt Count Neut % (Auto) Lymph % (Auto) [place] % (Auto) Eos % (Auto) Baso % (Auto) Neut # (Auto) Lymph # (Auto) [place] # (Auto) Eos # (Auto) Baso # (Auto) Immature Gran # (Auto) Absolute Nucleated RBC Immature Gran % Nucleated RBC % Sodium 135 L Potassium 4.0 D Chloride 101 Carbon Dioxide 19.5 L Anion Gap 15 BUN 18 Creatinine 2.2 H D Estim Creat Clear Calc 23.1 L eGFR 32 L BUN/Creatinine Ratio 8 L Glucose 195 H D Calculated Osmolality 277 Calcium 8.3 Corrected Calcium 9.0 Total Bilirubin 0.3 AST 37 H ALT 91 H Alkaline Phosphatase 73 Total Protein 5.6 L Albumin 3.1 L Globulin 2.5 Albumin/Globulin Ratio 1.2 Beta-Hydroxybutyrate/Acetoacetate 4.2 H Blood Type AB Positive Antibody Screen NEGATIVE Blood Bank Wristband ID Yes 08/25/24 08/25/24 04:22 07:22 WBC 9.7 RBC 2.66 L Hgb 6.8 L* 7.1 L Hct 21.4 L* 22.3 L MCV 81 MCH 25.6 MCHC 31.8 RDW Std Deviation 61.9 H Plt Count 92 L Neut % (Auto) 86 H Lymph % (Auto) 7 L [place] % (Auto) 5 Eos % (Auto) 2 Baso % (Auto) 0 Neut # (Auto) 8.3 H Lymph # (Auto) 0.7 L [place] # (Auto) 0.5 Eos # (Auto) 0.2 Baso # (Auto) 0.0 Immature Gran # (Auto) 0.05 H Absolute Nucleated RBC 0.00 Immature Gran % 1 H Nucleated RBC % 0 Sodium 135 L Potassium 3.6 Chloride 101 Carbon Dioxide 22.4 Anion Gap 12 BUN 25 H Creatinine 2.8 H D Estim Creat Clear Calc 18.1 L eGFR 24 L BUN/Creatinine Ratio 9 L Glucose 142 H D Calculated Osmolality 276 Calcium 8.3 Corrected Calcium 9.1 Total Bilirubin 0.3 AST < 8 ALT 78 H Alkaline Phosphatase 71 Total Protein 5.7 Albumin 3.0 L Globulin 2.7 Albumin/Globulin Ratio 1.1 L Beta-Hydroxybutyrate/Acetoacetate 0.6 H Blood Type Antibody Screen Blood Bank Wristband ID ABG Interpretation ABG results: 08/21/24 08/21/24 08/22/24 20:24 23:24 04:35 ABG pH 7.26 L ABG pCO2 31 L ABG pO2 92 ABG HCO3 14 L ABG O2 Saturation 97 ABG Base Excess -12 L VBG pH 7.32 L 7.22 L VBG pCO2 30 L 35 L VBG pO2 66 H 85 H VBG Base Excess -10 L -12 L 08/24/24 08:40 ABG pH ABG pCO2 ABG pO2 ABG HCO3 ABG O2 Saturation ABG Base Excess VBG pH 7.36 VBG pCO2 31 L VBG pO2 80 H VBG Base Excess -8 L Quality Measures Quality Measures none Advance care planning discussed with:: patient Assessment & Plan Assessment Current Active Medications: Generic Name Dose Route Start Last Admin Trade Name Freq PRN Reason Stop Dose Admin Acetaminophen 650 mg 08/21/24 23:37 Acetaminophen 325 Mg Tablet PO 09/20/24 23:36 Q4HR PRN PAIN SCALE 1-3 (mild Acetaminophen 650 mg 08/21/24 23:37 Acetaminophen Supp 650 Mg Supp [place] 09/20/24 23:36 Q4HR PRN PAIN SCALE 1-3 (mild Acetylcysteine 3 ml 08/22/24 15:00 08/25/24 06:53 Acetylcysteine Rt Jing 10% 4 Ml Nebu INH 09/21/24 14:59 3 ml Q4HRRT KENNY Administration Al Hydrox/Mg Hydrox/Simethicone 30 ml 08/22/24 00:31 Mg Hyd/Al Hyd/Stephy (Maalox Reg) Susp 30 Ml Udc PO 09/20/24 23:36 Q4HR PRN Heartburn or Upset Stomach Albuterol 2.5 mg 08/22/24 15:00 08/25/24 06:52 Albuterol Rt 2.5 Mg/0.5 Ml Nebu INH 09/21/24 14:59 2.5 mg Q4HRRT KENNY Administration Amiodarone HCl 200 mg 08/24/24 15:00 08/25/24 09:10 Amiodarone Hcl 200 Mg Tablet PO 09/23/24 14:59 200 mg QDAY KENNY Administration Citric Acid/Sodium Citrate 30 ml 08/24/24 21:00 08/25/24 09:10 Citric Acid/Sodium Citr 15 Ml Udc (Bicitra) PO 09/23/24 20:59 30 ml BID KENNY Administration Dextrose 25 ml 08/22/24 04:20 08/22/24 11:43 Dextrose 50%-Water Inj 50 Ml Syringe IV 09/21/24 04:19 25 ml Q15MIN PRN Administration BG 50-70 responsive npo pt Dextrose 50 ml 08/22/24 04:20 Dextrose 50%-Water Inj 50 Ml Syringe IV 09/21/24 04:19 Q15MIN PRN BG <50 OR BG <70 & pt unresponsive Ferrous Sulfate 325 mg 08/24/24 08:30 08/24/24 08:53 Ferrous Sulf 325 Mg Tablet PO 09/23/24 08:29 325 mg QOD KENNY Administration Heparin Sodium (Porcine) 5,000 unit 08/22/24 09:00 08/25/24 09:11 Heparin Sod Inj 5000 Unit/Ml Vial SC 09/05/24 08:59 5,000 unit BID KENNY Administration Heparin Sodium (Porcine) 3,000 unit 08/22/24 05:34 08/23/24 20:17 Heparin Sod Inj 1000 Unit/Ml Vial 10 Ml INDWELLCAT 09/05/24 05:33 3,000 unit PRN PRN Administration DIALYSIS Heparin Sodium (Porcine) 3,500 unit 08/23/24 08:26 08/23/24 10:01 Heparin Sod Inj 1000 Unit/Ml Vial 10 Ml INDWELLCAT 09/06/24 08:25 3,500 unit PRN PRN Administration Clotting Albumin Human 25 gm in 100 mls @ 100 mls/min 08/22/24 05:34 Albuminar-25 Ivpb IV PRN PRN DIALYSIS Ceftriaxone Sodium 1,000 mg/ 50 mls @ 100 mls/hr 08/25/24 09:00 08/25/24 09:08 Sodium Chloride IV 09/01/24 08:59 100 mls/hr QDAY KENNY Administration Insulin Human Lispro 0 unit 08/24/24 14:00 08/25/24 06:40 Insulin Lispro (Admelog) 1 Unit/0.01 Ml Unit SC 09/23/24 13:59 Not Given Q4HR KENNY Protocol Magnesium Hydroxide 30 ml 08/21/24 23:37 Milk Of Magnesia Susp 30 Ml Udc PO 09/20/24 23:36 QDAY PRN CONSTIPATION Midodrine 10 mg 08/24/24 11:00 08/25/24 07:37 Midodrine 5 Mg Tablet PO 09/23/24 10:59 10 mg Q6HR KENNY Administration Pharmacy Consult 1 each 08/23/24 08:21 Pharmacy To Consult Patient XX 09/22/24 08:20 PRN PRN Starting 24Hr Continuous/Intermittent Dialysis Sodium Chloride 3 ml 08/22/24 14:07 08/23/24 06:17 Sodium Chloride Rt Jing 0.9% 3 Ml Nebu INH 09/21/24 14:06 3 ml PRN PRN Administration SOLN Plan A 64-year-old male with significant past medical history of hypertension, insulin-dependent diabetes mellitus, CAD s/p PCI, HFrEF [EF 10 to 15%], CKD stage III, bilateral below-knee amputations, atrial fibrillation living in assisted facility was brought to the hospital with chief complaints of worsening mentation, shortness of breath and generalized weakness for the past 2 days. # Acute on chronic kidney disease, stage IIIb Likely prerenal versus ATN in the setting of shock -Patient presented to the hospital with the complaints of shortness of breath worsening mentation and per patient's patient had abdominal pain and foul- smelling urine. -Baseline creatinine as of 07/2024 is 2.4 -On the day of admission, 08/21/2024, creatinine is 6.3 > 08/25, BUN 25, Cr 2.8 -Urine analysis showed turbid urine with 2+ proteinuria, 3+ blood, 5180 RBC, 1928 WBC Plan -Patient got CRRT on 08/22 and one more session done on 08/23, will do HD today as patient is still not able to make adequate amount of urine -Monitor renal functions and avoid nephrotoxic medications -Continue antibiotics # Hyperkalemia, resolved # Hyperphosphatemia, resolved # Lactic acidosis, resolved -Found to have potassium of 7.5 at the time of admission -Since 08/23/2024, Electrolytes are within normal limits -Will do HD #Acute encephalopathy 07/13 UTI #Chronic right parietal stroke #Shock #Acute hypoxic respiratory failure. #Complicated UTI #Chronic anemia #IDDM #Elevated LFT's To be treated per ICU team Thank you for allowing us to involved in the care of the patient Patient plan of care was discussed with the attending physician, Dr. Marian Gates, PGY1 Attending Provider Attestation/Addendum Patient seen and examined with resident physician Dr. Pollard. Note reviewed, agree with findings and recommendations. Patient with sepsis and JADIEL. On broad-spectrum antibiotics. Patient received 2 hours of conventional hemodialysis overnight due to metabolic acidosis and hyperkalemia. Urine output still remains low. Currently on pressors. Decided to proceed with CRRT. Patient tolerated CRRT yesterday. More alert and awake today. Daughter at bedside. Critical care time spent more than 40 minutes regarding plan of care and disease management. Please see CRRT flowsheet. CRRT for 10 hours, 3K, 39 bicarbonate, blood flow 100 to 150 mL/min, tight heparin, dialysate flow rate 100 mL/min, saline flush 50 mL/h. 08/25/2024 patient currently seen in ICU. Off pressors. Urine output very minimal. BUN and creatinine still rising. In the beginning patient decided no dialysis and after talking to him he agreed to proceed with dialysis. Patient currently seen on conventional dialysis. Tolerating dialysis without any problems. Hemodialysis for 3 hours, 2K, ultrafiltration 2L, Epogen 6000, no heparin ordered. Plan of care discussed with the dialysis nurse. Please see dialysis flowsheet for further details. Plan of care discussed with ICU team and Dr. Oviedo. Will need PermCath once he comes out of ICU.
--- NOTE | 2024-08-25 14:05 | ESPR_ITS ---
<Statement entered by Janee Velazquez MD - 08/26/24 12:37> The patient in the intensive care unit patient continues to improve gradually not have any chest pain shortness of breath remains stable on midodrine 10 mg 4 times daily blood pressure stable in sinus rhythm maintaining medical management patient continued on amiodarone 200 mg once a day for antiarrhythmic drug therapy and continue with dialysis as per nephrology conditions stable today but long-term progress report will monitor patient's closely will restart low-dose beta-yesika metoprolol if cannot tolerate a 25 agree with the treatment plan recommendation as documented with PGY 3 Documentation for date of: 08/25/24 Subjective Subjective Interval history: Overnight events, lab/imaging results, and notes reviewed. Patient examined bedside, reports feeling well this afternoon without any medical complaints, MAP 71 at time of examination without vasopressor support. Creatinine noted to uptrend to 2.8 from 2.2, nephrology team following and may consider dialysis if patient is agreeable. Patient has been started on amiodarone 200mg qday, half of home BID dose, to prevent ventricular dysarythmias. Cardiology team will continue to follow. Exam Vital Signs Temp Pulse Resp BP Pulse Ox O2 Del Method O2 Flow Rate 97.9 F 71 20 99/57 L 100 Room Air 1 08/25/24 08:00 08/25/24 13:40 08/25/24 10:34 08/25/24 13:40 08/25/24 10:34 08/25/24 04:00 08/23/24 22:40 Narrative Exam General: AOx3, cooperative, in no acute distress HEENT: Atraumatic/normocephalic, RUPERT Heart: RRR, S1 and S2 without clicks or murmurs Lungs: Clear on auscultation bilaterally, no difficulty breathing Abdomen: Soft, nontender. Bowel sounds present on all quadrants Skin: Bilateral lower extremity BKAs, no edema or cyanosis noted Neuro: No focal neurological deficits noted on appearance Objective Labs 08/25/24 07:22 08/25/24 04:22 Labs: Laboratory Results - last 24 hr 08/24/24 08/24/24 08/25/24 13:43 14:15 04:22 WBC 9.7 RBC 2.66 L Hgb 6.8 L* Hct 21.4 L* MCV 81 MCH 25.6 MCHC 31.8 RDW Std Deviation 61.9 H Plt Count 92 L Neut % (Auto) 86 H Lymph % (Auto) 7 L [place] % (Auto) 5 Eos % (Auto) 2 Baso % (Auto) 0 Neut # (Auto) 8.3 H Lymph # (Auto) 0.7 L [place] # (Auto) 0.5 Eos # (Auto) 0.2 Baso # (Auto) 0.0 Immature Gran # (Auto) 0.05 H Absolute Nucleated RBC 0.00 Immature Gran % 1 H Nucleated RBC % 0 Sodium 135 L 135 L Potassium 4.0 D 3.6 Chloride 101 101 Carbon Dioxide 19.5 L 22.4 Anion Gap 15 12 BUN 18 25 H Creatinine 2.2 H D 2.8 H D Estim Creat Clear Calc 23.1 L 18.1 L eGFR 32 L 24 L BUN/Creatinine Ratio 8 L 9 L Glucose 195 H D 142 H D Calculated Osmolality 277 276 Calcium 8.3 8.3 Corrected Calcium 9.0 9.1 Total Bilirubin 0.3 0.3 AST 37 H < 8 ALT 91 H 78 H Alkaline Phosphatase 73 71 Total Protein 5.6 L 5.7 Albumin 3.1 L 3.0 L Globulin 2.5 2.7 Albumin/Globulin Ratio 1.2 1.1 L Beta-Hydroxybutyrate/Acetoacetate 4.2 H 0.6 H 08/25/24 07:22 WBC RBC Hgb 7.1 L Hct 22.3 L MCV MCH MCHC RDW Std Deviation Plt Count Neut % (Auto) Lymph % (Auto) [place] % (Auto) Eos % (Auto) Baso % (Auto) Neut # (Auto) Lymph # (Auto) [place] # (Auto) Eos # (Auto) Baso # (Auto) Immature Gran # (Auto) Absolute Nucleated RBC Immature Gran % Nucleated RBC % Sodium Potassium Chloride Carbon Dioxide Anion Gap BUN Creatinine Estim Creat Clear Calc eGFR BUN/Creatinine Ratio Glucose Calculated Osmolality Calcium Corrected Calcium Total Bilirubin AST ALT Alkaline Phosphatase Total Protein Albumin Globulin Albumin/Globulin Ratio Beta-Hydroxybutyrate/Acetoacetate ABG Interpretation ABG results: 08/21/24 08/21/24 08/22/24 20:24 23:24 04:35 ABG pH 7.26 L ABG pCO2 31 L ABG pO2 92 ABG HCO3 14 L ABG O2 Saturation 97 ABG Base Excess -12 L VBG pH 7.32 L 7.22 L VBG pCO2 30 L 35 L VBG pO2 66 H 85 H VBG Base Excess -10 L -12 L 08/24/24 08:40 ABG pH ABG pCO2 ABG pO2 ABG HCO3 ABG O2 Saturation ABG Base Excess VBG pH 7.36 VBG pCO2 31 L VBG pO2 80 H VBG Base Excess -8 L Quality Measures Quality Measures none Advance care planning discussed with:: patient Assessment & Plan Assessment Current Active Medications: Generic Name Dose Route Start Last Admin Trade Name Freq PRN Reason Stop Dose Admin Acetaminophen 650 mg 08/21/24 23:37 Acetaminophen 325 Mg Tablet PO 09/20/24 23:36 Q4HR PRN PAIN SCALE 1-3 (mild Acetaminophen 650 mg 08/21/24 23:37 Acetaminophen Supp 650 Mg Supp [place] 09/20/24 23:36 Q4HR PRN PAIN SCALE 1-3 (mild Acetylcysteine 3 ml 08/22/24 15:00 08/25/24 10:27 Acetylcysteine Rt Jing 10% 4 Ml Nebu INH 09/21/24 14:59 3 ml Q4HRRT KENNY Administration Al Hydrox/Mg Hydrox/Simethicone 30 ml 08/22/24 00:31 Mg Hyd/Al Hyd/Stephy (Maalox Reg) Susp 30 Ml Udc PO 09/20/24 23:36 Q4HR PRN Heartburn or Upset Stomach Albuterol 2.5 mg 08/22/24 15:00 08/25/24 10:27 Albuterol Rt 2.5 Mg/0.5 Ml Nebu INH 09/21/24 14:59 2.5 mg Q4HRRT KENNY Administration Amiodarone HCl 200 mg 08/24/24 15:00 08/25/24 09:10 Amiodarone Hcl 200 Mg Tablet PO 09/23/24 14:59 200 mg QDAY KENNY Administration Citric Acid/Sodium Citrate 30 ml 08/24/24 21:00 08/25/24 09:10 Citric Acid/Sodium Citr 15 Ml Udc (Bicitra) PO 09/23/24 20:59 30 ml BID KENNY Administration Dextrose 25 ml 08/22/24 04:20 08/22/24 11:43 Dextrose 50%-Water Inj 50 Ml Syringe IV 09/21/24 04:19 25 ml Q15MIN PRN Administration BG 50-70 responsive npo pt Dextrose 50 ml 08/22/24 04:20 Dextrose 50%-Water Inj 50 Ml Syringe IV 09/21/24 04:19 Q15MIN PRN BG <50 OR BG <70 & pt unresponsive Epoetin Jens 10,000 unit 08/25/24 15:00 Epoetin Jens-Epbx Inj 10,000 Unit/Ml Vial (Esrd) SC 08/25/24 15:01 X1 ONE Ferrous Sulfate 325 mg 08/24/24 08:30 08/24/24 08:53 Ferrous Sulf 325 Mg Tablet PO 09/23/24 08:29 325 mg QOD KENNY Administration Heparin Sodium (Porcine) 5,000 unit 08/22/24 09:00 08/25/24 09:11 Heparin Sod Inj 5000 Unit/Ml Vial SC 09/05/24 08:59 5,000 unit BID KENNY Administration Heparin Sodium (Porcine) 3,000 unit 08/22/24 05:34 08/23/24 20:17 Heparin Sod Inj 1000 Unit/Ml Vial 10 Ml INDWELLCAT 09/05/24 05:33 3,000 unit PRN PRN Administration DIALYSIS Albumin Human 25 gm in 100 mls @ 100 mls/min 08/22/24 05:34 Albuminar-25 Ivpb IV PRN PRN DIALYSIS Ceftriaxone Sodium 1,000 mg/ 50 mls @ 100 mls/hr 08/25/24 09:00 08/25/24 09:08 Sodium Chloride IV 09/01/24 08:59 100 mls/hr QDAY KENNY Administration Insulin Human Lispro 0 unit 08/24/24 14:00 08/25/24 10:00 Insulin Lispro (Admelog) 1 Unit/0.01 Ml Unit SC 09/23/24 13:59 Not Given Q4HR [facility] Protocol Magnesium Hydroxide 30 ml 08/21/24 23:37 Milk Of Magnesia Susp 30 Ml Udc PO 09/20/24 23:36 QDAY PRN CONSTIPATION Midodrine 10 mg 08/24/24 11:00 08/25/24 13:40 Midodrine 5 Mg Tablet PO 09/23/24 10:59 10 mg Q6HR KENNY Administration Pharmacy Consult 1 each 08/23/24 08:21 Pharmacy To Consult Patient XX 09/22/24 08:20 PRN PRN Starting 24Hr Continuous/Intermittent Dialysis Sodium Chloride 3 ml 08/22/24 14:07 08/23/24 06:17 Sodium Chloride Rt Jing 0.9% 3 Ml Nebu INH 09/21/24 14:06 3 ml PRN PRN Administration SOLN Plan Patient is a 64-year-old male past medical history of HFrEF (EF 10-15%), ischemic cardiomyopathy, CKD IIIb, CAD s/p stents, atrial fibrillation, NSVT, hypertension, hyperlipidemia, IDDM2, and bilateral BKAs who was admitted to the ICU for cardiogenic shock and acute on chronic renal failure requiring vasopressor support and CRRT. Patient was noted to have severe bradycardia in 40s both in ED and en route to ED, given atropine x2 however bradycardia did not resolve, external pacing was initiated. Cardiology team consulted for severe bradycardia in setting of hyperkalemia 7.5. #Cardiogenic shock #Symptomatic bradycardia secondary to hyperkalemia #HFrEF EF (10-15%) #Ischemic cardiomyopathy #History of Atrial fibrillation #History of NSVT - En route to ED and in ED, heart rate in 40s. Atropine x2 did not improve bradycardia, external pacing initiated. - Levophed and Dopamine started, have been weaned off - Nephrology team following, CRRT per nephrology recommendations. Nephrology team may consider dialysis if patient is agreeable, creatinine uptrended 2.8 on 08/25 - Monitor electrolytes, goal of K > 4 and Magnesium > 2 - Bradycardia likely caused by hyperkalemia - Given history of atrial fibrillation and NSVT, advise resuming amiodarone. For concerns of bradycardia, advise 200mg amiodarone qday (reduced from patient's home BID dose). Given bradycardia and hypotension concerns, agree with holding home metoprolol for now until clinical status improves - Agree with midodrine 10mg q6 hours - If patient continues dialysis outpatient, may consider adding spironolactone to regimen - ICD not indicated in patient for following reasons: Patient has NYHA Class IV with drug-refractory CHF, reasonable expectation of survival with an acceptable functional status < 6 months. #JADIEL on CKD?on CRRT #Hyperkalemia #Lactic acidosis #History of osteomyelitis status post BKA #History of atrial fibrillation - Management per primary team Patient case discussed with attending physician Dr. Marcus Raman, DO PGY-3
[2024-08-25] MEDS: SODIUM CHLORIDE RT SOL 0.9% 3 ML NEBU INH (15:03)
--- NOTE | 2024-08-25 15:50 | PD.RESPRO ---
Documentation for date of: 08/25/24 Subjective Subjective Interval history: Patient was examined bedside this morning, he was AO x 3. Labs reviewed. Initially patient said in the morning that he is tired and does not want to continue treatment family was informed about it but later patient agreed on doing the treatment including hemodialysis if necessary put a Vas-Cath and follow-up outpatient dialysis. He will have 1 session of dialysis today. Hemoglobin in the morning was 6.8 repeat H&H came back to 7.1. He is beta-hydroxybutyrate today morning was 0.6, anion gap closed. His anion gap yesterday was secondary to starvation ketoacidosis patient is eating a lot better today. Patient is downgraded to floors. Will continue midodrine 3 times daily. Exam Vital Signs Temp Pulse Resp BP Pulse Ox O2 Del Method O2 Flow Rate 98.0 F 71 17 104/62 100 Room Air 1 08/25/24 12:00 08/25/24 15:12 08/25/24 15:12 08/25/24 14:00 08/25/24 15:12 08/25/24 04:00 08/23/24 22:40 Narrative Exam GENERAL: AAOX3, tired looking gentleman NEURO: ALLERGY PHYSICIAN grossly intact, No CN deficits HEENT: Dry mucosa. Eyes open, symetrical and celar CARDIO: No chest pain on palpation. Heart RRR, no obvious murmurs PULM: Minimal crackles bilaterally, no coughing or dyspnea, saturating 98% on room air GI: Abdomen soft, nondistended. BSx4 URO/GENETICIST:: No further abnormalities noted. Prather catheter in situ SKIN/MSK/EXT: Bilateral BKA, right stump has no discharge, dried blood, aprroximated skin over stump Objective Labs 08/26/24 05:30 08/26/24 05:30 Labs: Laboratory Results - last 24 hr 08/25/24 08/25/24 04:22 07:22 WBC 9.7 RBC 2.66 L Hgb 6.8 L* 7.1 L Hct 21.4 L* 22.3 L MCV 81 MCH 25.6 MCHC 31.8 RDW Std Deviation 61.9 H Plt Count 92 L Neut % (Auto) 86 H Lymph % (Auto) 7 L [place] % (Auto) 5 Eos % (Auto) 2 Baso % (Auto) 0 Neut # (Auto) 8.3 H Lymph # (Auto) 0.7 L [place] # (Auto) 0.5 Eos # (Auto) 0.2 Baso # (Auto) 0.0 Immature Gran # (Auto) 0.05 H Absolute Nucleated RBC 0.00 Immature Gran % 1 H Nucleated RBC % 0 Sodium 135 L Potassium 3.6 Chloride 101 Carbon Dioxide 22.4 Anion Gap 12 BUN 25 H Creatinine 2.8 H D Estim Creat Clear Calc 18.1 L eGFR 24 L BUN/Creatinine Ratio 9 L Glucose 142 H D Calculated Osmolality 276 Calcium 8.3 Corrected Calcium 9.1 Total Bilirubin 0.3 AST < 8 ALT 78 H Alkaline Phosphatase 71 Total Protein 5.7 Albumin 3.0 L Globulin 2.7 Albumin/Globulin Ratio 1.1 L Beta-Hydroxybutyrate/Acetoacetate 0.6 H ABG Interpretation ABG results: 08/21/24 08/21/24 08/22/24 20:24 23:24 04:35 ABG pH 7.26 L ABG pCO2 31 L ABG pO2 92 ABG HCO3 14 L ABG O2 Saturation 97 ABG Base Excess -12 L VBG pH 7.32 L 7.22 L VBG pCO2 30 L 35 L VBG pO2 66 H 85 H VBG Base Excess -10 L -12 L 08/24/24 08:40 ABG pH ABG pCO2 ABG pO2 ABG HCO3 ABG O2 Saturation ABG Base Excess VBG pH 7.36 VBG pCO2 31 L VBG pO2 80 H VBG Base Excess -8 L Quality Measures Quality Measures none Advance care planning discussed with:: patient Assessment & Plan Assessment Current Active Medications: Generic Name Dose Route Start Last Admin Trade Name Freq PRN Reason Stop Dose Admin Acetaminophen 650 mg 08/21/24 23:37 Acetaminophen 325 Mg Tablet PO 09/20/24 23:36 Q4HR PRN PAIN SCALE 1-3 (mild Acetaminophen 650 mg 08/21/24 23:37 Acetaminophen Supp 650 Mg Supp NE 09/20/24 23:36 Q4HR PRN PAIN SCALE 1-3 (mild Acetylcysteine 3 ml 08/22/24 15:00 08/25/24 15:03 Acetylcysteine Rt Jing 10% 4 Ml Nebu INH 09/21/24 14:59 3 ml Q4HRRT KENNY Administration Al Hydrox/Mg Hydrox/Simethicone 30 ml 08/22/24 00:31 Mg Hyd/Al Hyd/Stephy (Maalox Reg) Susp 30 Ml Udc PO 09/20/24 23:36 Q4HR PRN Heartburn or Upset Stomach Albuterol 2.5 mg 08/22/24 15:00 08/25/24 15:03 Albuterol Rt 2.5 Mg/0.5 Ml Nebu INH 09/21/24 14:59 2.5 mg Q4HRRT KENNY Administration Amiodarone HCl 200 mg 08/24/24 15:00 08/25/24 09:10 Amiodarone Hcl 200 Mg Tablet PO 09/23/24 14:59 200 mg QDAY KENNY Administration Citric Acid/Sodium Citrate 30 ml 08/24/24 21:00 08/25/24 09:10 Citric Acid/Sodium Citr 15 Ml Udc (Bicitra) PO 09/23/24 20:59 30 ml BID KENNY Administration Dextrose 25 ml 08/22/24 04:20 08/22/24 11:43 Dextrose 50%-Water Inj 50 Ml Syringe IV 09/21/24 04:19 25 ml Q15MIN PRN Administration BG 50-70 responsive npo pt Dextrose 50 ml 08/22/24 04:20 Dextrose 50%-Water Inj 50 Ml Syringe IV 09/21/24 04:19 Q15MIN PRN BG <50 OR BG <70 & pt unresponsive Ferrous Sulfate 325 mg 08/24/24 08:30 08/24/24 08:53 Ferrous Sulf 325 Mg Tablet PO 09/23/24 08:29 325 mg QOD KENNY Administration Heparin Sodium (Porcine) 5,000 unit 08/22/24 09:00 08/25/24 09:11 Heparin Sod Inj 5000 Unit/Ml Vial SC 09/05/24 08:59 5,000 unit BID KENNY Administration Heparin Sodium (Porcine) 3,000 unit 08/22/24 05:34 08/23/24 20:17 Heparin Sod Inj 1000 Unit/Ml Vial 10 Ml INDWELLCAT 09/05/24 05:33 3,000 unit PRN PRN Administration DIALYSIS Albumin Human 25 gm in 100 mls @ 100 mls/min 08/22/24 05:34 Albuminar-25 Ivpb IV PRN PRN DIALYSIS Ceftriaxone Sodium 1,000 mg/ 50 mls @ 100 mls/hr 08/25/24 09:00 08/25/24 09:08 Sodium Chloride IV 09/01/24 08:59 100 mls/hr QDAY KENNY Administration Insulin Human Lispro 0 unit 08/24/24 14:00 08/25/24 14:34 Insulin Lispro (Admelog) 1 Unit/0.01 Ml Unit SC 09/23/24 13:59 Not Given Q4HR KENNY Protocol Magnesium Hydroxide 30 ml 08/21/24 23:37 Milk Of Magnesia Susp 30 Ml Udc PO 09/20/24 23:36 QDAY PRN CONSTIPATION Midodrine 10 mg 08/24/24 11:00 08/25/24 13:40 Midodrine 5 Mg Tablet PO 09/23/24 10:59 10 mg Q6HR KENNY Administration Pharmacy Consult 1 each 08/23/24 08:21 Pharmacy To Consult Patient XX 09/22/24 08:20 PRN PRN Starting 24Hr Continuous/Intermittent Dialysis Sodium Chloride 3 ml 08/22/24 14:07 08/25/24 15:03 Sodium Chloride Rt Jing 0.9% 3 Ml Nebu INH 09/21/24 14:06 3 ml PRN PRN Administration SOLN Plan The patient is a 64-year-old male with a past medical history of hypertension, hyperlipidemia, CKD stage IIIb, diabetes, bilateral BKA's, A-fib, CAD status post stent, HFrEF with ejection fraction 10 to 15% who presented to the ED on 08/21/2024 from [facility] with altered mental status and generalized weakness. Neuro #Acute encephalopathy-resolved #Uremic versus infectious Patient presented with confusion and weakness from the facility. UA significant for UTI with pyuria. Additionally, renal function panel significant for azotemia with significantly elevated creatinine, lactic acidosis and hyperkalemia. Cardiovascular #Shock, likely mixed etiology #Cardiogenic plus distributive- resolved The patient presented to the ED with a blood pressure of 77/55. Due to history of HFrEF with ejection fraction of 10 to 15%, he received only 500 cc bolus of fluids. Blood pressure continued to remain soft with a MAP lower than 65 and the patient was admitted to the ICU for pressor support. Additionally, patient does meet SIRS criteria for sepsis with urine as a source. 08/24/2024- Patient was on levodopa a 0.01 this morning, MAP >65, subsequently downtitrated. Started on Midodrine 10mg Q6HR. , on Levo and dopa-> off dopa, minimal levo -> titrated off and started on midodrine 10mg q6 - cx NTD however Ucx sent a few days after abx started -08/25/24: he is off levo, continie midodrine 10 tid #History of HFrEF 10-15% The patient has a history of HFrEF with last ejection fraction noted to be 10 to 15%. He is on metoprolol on outpatient basis as well as dapagliflozin. Medications currently held as patient came in bradycardic. Per cardiology, patient currently not a candidate for surgical intervention On discharge, patient will benefit from GDMT optimized with Entresto if blood pressure tolerates. Per cardiology- ICD not indicated in patient for following reasons: Patient has NYHA Class IV with drug-refractory CHF, reasonable expectation of survival with an acceptable functional status < 6 months Plan: - once BP slightly improved start low dose coreg - would start entresto after able to tolerate BB - may also benefit from spirinolactone -> eval once JADIEL has improved - on dapagliflozin as outpt-> eval appropriateness of cont meds tmw - per cards no ICD -> recs are for amio for VT prevention # History of A-fib The patient has a history of A-fib on exam amiodarone, metoprolol and Eliquis. Medications initially held as patient came in with bradycardia and possibly of bleeding. Per cardiology, amiodarone is more indicated for prevention of V. tachs and recommends to resume. Plan: -currently in sinus rhythm - will resume eliquis when stable -Currently on Amiodarone Q day #Sinus bradycardia- resolved - likely due to Amio and BB in setting of JADIEL - currently resolved - cards recs appreciated Respiratory #Acute hypoxic respiratory failure-resolved The patient on presentation had increasing oxygen requirement, placed on 3 L of oxygen via nasal cannula. Chest x-ray shows some moderate vascular congestion, otherwise unremarkable. Likely as a result of decreased cardiac output as well as acidosis. GI #Transaminitis-improving Initial labs show slightly elevated AST and ALT, likely as a result of shock. T. bili and ALP normal Plan: -Continue to monitor LFTs for any new trends Renal #Acute on chronic kidney injury-improving #Hyperkalemia-resolved #Lactic acidosis-resolved The patient has a history of stage III CKD. He is reported to have had poor oral intake in the last couple days. Likely prerenal due to decreased volume, likely progressing to ATN. Had 1 session of hemodialysis this morning, repeat labs showed improving hyperkalemia and creatinine reduction to 4.3, lactic acidosis is resolving. Nephrology consulted, patient currently on session of CRRT. 08/24/2024-completed another session of CRRT yesterday. Labs this morning, improving creatinine at 1.5. However, patient is still in oliguric acute kidney injury. Will get nephrology recommendations for fluids/diuretics. 08/25/2024: nephrology is planning HD today Plan: - minimal UOP - ? IVF v lasix -> d/w nephrology -Avoid nephrotoxic medications -Renally dose medications #Anion gap metabolic acidosis- resolved #Starvation ketoacidosis Anion gap- 20. Normal lactate, BHB >6.4 -her BHB is 0.6 today , GAP closed - he is trying to eat more , will encourage him to eat more Hematology/oncology #Leukocytosis-improving #Anemia Likely combination of iron deficiency anemia as well as anemia of chronic disease. 08/25- his Hb was 6.8 , repeat H&H was 7.1 , will transfuse if hb <7 Endocrinology #History of type II DM The patient was on glargine 15 units twice daily at home Last A1c was 10.2 Blood glucose currently within normal limits. Plan: -ISS -Follow-up A1c -Hypoglycemic is in place -Keep blood levels between 140 and 180 -Discontinued glargine ID #Sepsis secondary to UTI Patient presented with confusion, urinalysis showed turbid urine with pyuria. Urine sample not collected yesterday, still pending. 08/24/2024- Urine culture pending although might be unreliable as sample was taken after 2 days of antibiotics. Plan: -Reduce IV Ceftriaxone 1g daily -Pending urine culture Urology #Hematuria Per chart review, noted the patient has had consistent hematuria for months. has also reported gross hematuria Prather does have some blood and possible clots. For now, cause unknown No active bleeding, no blood in Prather. Renal ultrasound was done which showed findings suggestive of medical renal disease, no stones present. Health maintenance: Dispo: ICU for shock cardiogenic and likely distributive. s/p pressors, HD and CRRT.downgraded to floors Diet: Clear liquid diet DVT: SC Heparin Prather: In-Situ Lines: Left IJ, peripherals Code: DNR Case was discussed with attending physician, Dr Preet Anand PGY-3 Attending Provider Attestation/Addendum Patient seen and examined, discussed with resident team. In brief this is a 64-year-old male admitted to the ICU with septic/cardiogenic shock. He is off pressors. He went into ketoacidosis felt to be 2/2 starvation ketosis. He was started on a D10 gtt and this improved. Today off pressors and with resolved ketosis. Still with minimal UOP and for HD. Today he intitially stated he was tired and wanted an eval with hospice. However once family arrived he changed his mind and declined. He is stable to tranfser to [facility] at this time. case d/w ICU team labs, imaging, records reviewed ~37min required for eval, exam, review, intervention, discussion and formulation of POC for this acutely ill pt
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
--- NOTE | 2024-08-25 17:19 | PC.SS ---
SLITTING MACHINE FEEDER discussed hospice with patient's spouse. Hospice has been declined at this time. Plan is to continue course of treatment. Patient is a resident of [facility].
[2024-08-25] MEDS: EPOETIN ALFA-EPBX INJ 10,000 UNIT/ML VIAL (ESRD) 10000 UNIT SC (22:44)
[2024-08-25] MEDS: HEPARIN SOD INJ 1000 UNIT/ML VIAL 10 ML 3000 UNIT INDWELLCAT (22:51)
[2024-08-26] VITALS (28 sets, daily range): BP systolic 88–118; BP diastolic 55–72; PULSE 68–83; RESP 12–98; TEMP 36.1–36.7; O2SAT 91–100; BMI 31.3
[2024-08-26] MEDS: MIDODRINE 5 MG TABLET 10 MG PO ×3 (00:01→21:20)
[2024-08-26] MEDS: ALBUTEROL RT 2.5 MG/0.5 ML NEBU INH ×3 (03:30→22:20)
[2024-08-26] MEDS: ACETYLCYSTEINE RT SOL 10% 4 ML NEBU 3 ML INH ×3 (03:30→22:20)
[2024-08-26 06:05] LABS: Basophils % (Auto) 0 % (0-2.5); Eosinophils # (Auto) 0.1 Thou/mm3 (0.0-0.5); Eosinophils % (Auto) 2 % (0-10); Immature Granulocytes % (Auto) 1 % (0-0); Immature Granulocytes Auto 0.08 Thou/mm3 (0.00-0.00); Lymphocytes # (Auto) 0.6 Thou/mm3 (1.0-4.8); Lymphocytes % (Auto) 6 % (10-50); Mean Corpuscular Hemoglobin 25.9 pg (25.0-35.0); Mean Corpuscular Volume 81 fL (80-100); Monocytes # (Auto) 0.5 Thou/mm3 (0.0-0.8); Monocytes % (Auto) 6 % (0-12); Neutrophils # (Auto) 7.3 Thou/mm3 (1.8-7.7); Neutrophils % (Auto) 85 % (37-80); Nucleated Red Blood Cell % 0 /100 WBC (0); Platelet Count 123 Thou/mm3 (140-440); RDW Standard Deviation 61.6 fL (35.1-43.9); Red Blood Count 2.55 Miln/mm3 (4.50-5.90); White Blood Count 8.6 Thou/mm3 (3.8-10.6)
[2024-08-26 06:12] LABS: Hematocrit 20.6 % (41.0-53.0); Hemoglobin 6.6 g/dL (13.5-16.0)
[2024-08-26 06:59] LABS: Alanine Aminotransferase 57 U/L (10-49); Albumin/Globulin Ratio 1.2 (1.2-2.2); Alkaline Phosphatase 80 U/L (46-116); Anion Gap 12 (7-16); Aspartate Amino Transferase 16 U/L (0-34); BUN/Creatinine Ratio 9 Ratio (12-20); Bilirubin,Total 0.3 mg/dL (0.3-1.2); Blood Urea Nitrogen 18 mg/dL (9-23); Calcium 8.4 mg/dL (8.3-10.6); Calcium (Corrected) 9.2 mg/dL (8.5-10.1); Carbon Dioxide 25.4 mMol/L (20.0-31.0); Chloride 101 mMol/L (98-107); Estimated Creatinine Clearance 25.4 mL/min (>60); Globulin 2.6 gm/dL (2.3-3.5); Glucose 167 mg/dL (74-106); Osmolality,Calculated 281 (275-295); Potassium 3.6 mMol/L (3.4-5.1); Sodium 138 mMol/L (136-145); Total Protein 5.6 gm/dL (5.7-8.2); eGFR 36 See Note
--- NOTE | 2024-08-26 08:03 | XR_ITS ---
Ultrasound-guided needle placement right internal jugular vein Permanent tunneled dialysis catheter insertion, percutaneous Fluoroscopy AP chest, portable, single view. Date and time of procedure: August 26, 2024 1345 hours INDICATIONS: Requires long-term dialysis for renal failure, utilizing permanent tunneled dialysis catheter Informed consent provided Technique: A timeout was completed verifying correct patient, procedure, site, positioning, and special equipment if applicable. The patient was placed in a dependent position appropriate for dialysis catheter placement based on the vein to be cannulated. The patient'sright neck was prepped and draped in sterile fashion. Maximum Sterile Barrier Technique used including cap, mask, sterile gown, sterile gloves, and sterile full body drape. If ultrasound technique used: sterile gel and sterile probe covers. Hand Hygiene performed using proper scrub, soap and water, or alcohol-based hand rub. 1% lidocaine was used to anesthetize the surrounding skin area The [employer] portable ultrasound apparatus utilized to confirm patency of the right internal jugular vein Utilizing ultrasonographic guidance successful 21-gauge needle puncture into the right internal jugular vein Ultrasound images were recorded and stored. Vessel micropuncture was performed with 21-gauge needle. 0.18 wire guide is introduced into the vein. 0.18 wire is introduced into the vena cava under fluoroscopy. Subcutaneous tunnel formed in the upper chest. Permanent tunneled dialysis catheter placed in the subcutaneous tunnel. Dilators were introduced over the J-wire guide. Tunneled dialysis catheter is introduced through a dilator with venous sheath into the superior vena cava under fluoroscopic guidance. The catheter is sutured in place to the skin and a sterile dressing applied. Perfusion to the extremity distal to the point of catheter insertion is checked and found to be adequate Attending radiologist was present for the entire procedure Estimated blood loss2 cc. The patient tolerated the procedure well and there were no complications Impression: Successful ultrasound-guided needle placement right internal blood or vein Successful permanent tunneled dialysis catheter insertion, percutaneous Fluoroscopy 0.4 minute radiation dose 3.34 milligray 1 spot fluoroscopic chest film. AP chest performed at completion procedure demonstrates satisfactory position dialysis catheter. May use dialysis catheter.
[2024-08-26] MEDS: AMIODARONE HCL 200 MG TABLET PO (08:20)
[2024-08-26] MEDS: CITRIC ACID/SODIUM CITR 15 ML UDC (BICITRA) 30 ML PO ×2 (08:21→21:20)
[2024-08-26] MEDS: cefTRIAXone 1,000 MG in SODIUM CHLORIDE 0.9% (Popper) 50 ML 100 MG IV (08:21)
[2024-08-26] MEDS: FERROUS SULF 325 MG TABLET PO (08:21)
--- NOTE | 2024-08-26 09:31 | PD.RESPRO ---
Documentation for date of: 08/26/24 Subjective Subjective Interval history: Mr. Galdamez is a 64-year-old male with significant past medical history of hypertension, insulin-dependent diabetes mellitus, CAD s/p PCI, HFrEF [EF 10 to 15%], CKD stage III, bilateral below-knee amputations, atrial fibrillation living in residential facility was brought to the hospital with chief complaints of worsening mentation, shortness of breath and generalized weakness for the past 2 days. Patient was noted to have heart rate dropped to 40s during transit time in the ambulance for which patient was externally paced and 2 doses of atropine was given without response. In the ED, patient was found to have heart rate of 40 with blood pressure of 80/45 mmHg for which cardiology was consulted for suspected AV block. Per radiology technician, there is no concern for AV block and patient was found to have junctional escape rhythm with underlying atrial fibrillation and recommended to start on Levophed and low-dose dopamine. Patient was admitted to ICU for further care. Also noted patient had decreased p.o. intake 2 days before the day of admission and abdominal discomfort. ED Course: -Initial vitals were blood pressure 111/58 mmHg, SpO2 79% with 15 L oxygen -Labs significant for Hb 8.3, potassium 7.5, bicarb 14, anion gap 19, BUN 85, creatinine 6.2, lactate 7. Urine analysis showed 5000 RBC and 2000 WBC. -Head CT was negative for acute hemorrhage and infarct. -Patient was admitted for shock requiring vasopressors Nephrology was consulted for acute on chronic kidney injury. 08/26/2024 Patient was seen and examined bedside in the telemetry. Patient denies any other complaints. No acute overnight events. Patient is still oliguric. Vitals are stable. Labs showed hemoglobin 6.6, BUN 18, creatinine 2.2 Patient received HD yesterday. Patient is scheduled for tunneled dialysis catheter tomorrow as his renal functions are not improving Patient may require dialysis sessions for few more weeks till the kidney functions come back to its baseline. Explained about his current condition to him and his family at the bedside Recommended to remove the Prather catheter and monitor urine output Exam Vital Signs Temp Pulse Resp BP Pulse Ox O2 Del Method O2 Flow Rate 98.0 F 77 22 H 104/62 100 Room Air 1 08/26/24 04:10 08/26/24 08:20 08/26/24 06:19 08/26/24 08:20 08/26/24 06:19 08/26/24 04:10 08/23/24 22:40 Narrative Exam General: Awake. Lying comfortably on the bed HEENT: Normocephalic, atraumatic, mucous membranes moist. Heart: Regular rate and rhythm, no murmurs. Lungs: Clear to auscultation with no wheezing or crackles. Abdomen: Soft, nondistended, nontender, positive bowel sounds. ?No guarding or rebound tenderness. Neurologic: Alert and oriented x3, no gross neurological deficit, and patient able to move all 4 extremities. Extremities: No edema. 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 B/L BKA Skin: No rash or ecchymoses. Objective Labs 08/27/24 05:02 08/27/24 05:02 Labs: Laboratory Results - last 24 hr 08/24/24 08/26/24 09:05 05:30 WBC 8.6 RBC 2.55 L Hgb 6.6 L* Hct 20.6 L* MCV 81 MCH 25.9 MCHC 32.0 RDW Std Deviation 61.6 H Plt Count 123 L D Neut % (Auto) 85 H Lymph % (Auto) 6 L [place] % (Auto) 6 Eos % (Auto) 2 Baso % (Auto) 0 Neut # (Auto) 7.3 Lymph # (Auto) 0.6 L [place] # (Auto) 0.5 Eos # (Auto) 0.1 Baso # (Auto) 0.0 Immature Gran # (Auto) 0.08 H Absolute Nucleated RBC 0.00 Immature Gran % 1 H Nucleated RBC % 0 PT 11.0 INR 1.0 Sodium 138 Potassium 3.6 Chloride 101 Carbon Dioxide 25.4 Anion Gap 12 BUN 18 Creatinine 2.0 H D Estim Creat Clear Calc 25.4 L eGFR 36 L BUN/Creatinine Ratio 9 L Glucose 167 H Calculated Osmolality 281 Calcium 8.4 Corrected Calcium 9.2 Total Bilirubin 0.3 AST 16 ALT 57 H Alkaline Phosphatase 80 Total Protein 5.6 L Albumin 3.0 L Globulin 2.6 Albumin/Globulin Ratio 1.2 Blood Type AB Positive Antibody Screen NEGATIVE Crossmatch See Detail Blood Bank Wristband ID Yes ABG Interpretation ABG results: 08/21/24 08/21/24 08/22/24 20:24 23:24 04:35 ABG pH 7.26 L ABG pCO2 31 L ABG pO2 92 ABG HCO3 14 L ABG O2 Saturation 97 ABG Base Excess -12 L VBG pH 7.32 L 7.22 L VBG pCO2 30 L 35 L VBG pO2 66 H 85 H VBG Base Excess -10 L -12 L 08/24/24 08:40 ABG pH ABG pCO2 ABG pO2 ABG HCO3 ABG O2 Saturation ABG Base Excess VBG pH 7.36 VBG pCO2 31 L VBG pO2 80 H VBG Base Excess -8 L Quality Measures Quality Measures none Advance care planning discussed with:: patient Assessment & Plan Assessment Current Active Medications: Generic Name Dose Route Start Last Admin Trade Name Freq PRN Reason Stop Dose Admin Acetaminophen 650 mg 08/21/24 23:37 Acetaminophen 325 Mg Tablet PO 09/20/24 23:36 Q4HR PRN PAIN SCALE 1-3 (mild Acetaminophen 650 mg 08/21/24 23:37 Acetaminophen Supp 650 Mg Supp [place] 09/20/24 23:36 Q4HR PRN PAIN SCALE 1-3 (mild Acetylcysteine 3 ml 08/22/24 15:00 08/26/24 06:16 Acetylcysteine Rt Jing 10% 4 Ml Nebu INH 09/21/24 14:59 3 ml Q4HRRT KENNY Administration Al Hydrox/Mg Hydrox/Simethicone 30 ml 08/22/24 00:31 Mg Hyd/Al Hyd/Stephy (Maalox Reg) Susp 30 Ml Udc PO 09/20/24 23:36 Q4HR PRN Heartburn or Upset Stomach Albuterol 2.5 mg 08/22/24 15:00 08/26/24 06:17 Albuterol Rt 2.5 Mg/0.5 Ml Nebu INH 09/21/24 14:59 2.5 mg Q4HRRT KENNY Administration Amiodarone HCl 200 mg 08/24/24 15:00 08/26/24 08:20 Amiodarone Hcl 200 Mg Tablet PO 09/23/24 14:59 200 mg QDAY KENNY Administration Citric Acid/Sodium Citrate 30 ml 08/24/24 21:00 08/26/24 08:21 Citric Acid/Sodium Citr 15 Ml Udc (Bicitra) PO 09/23/24 20:59 30 ml BID KENNY Administration Dextrose 25 ml 08/22/24 04:20 08/22/24 11:43 Dextrose 50%-Water Inj 50 Ml Syringe IV 09/21/24 04:19 25 ml Q15MIN PRN Administration BG 50-70 responsive npo pt Dextrose 50 ml 08/22/24 04:20 Dextrose 50%-Water Inj 50 Ml Syringe IV 09/21/24 04:19 Q15MIN PRN BG <50 OR BG <70 & pt unresponsive Ferrous Sulfate 325 mg 08/24/24 08:30 08/26/24 08:21 Ferrous Sulf 325 Mg Tablet PO 09/23/24 08:29 325 mg QOD KENNY Administration Heparin Sodium (Porcine) 5,000 unit 08/22/24 09:00 08/25/24 21:00 Heparin Sod Inj 5000 Unit/Ml Vial SC 09/05/24 08:59 5,000 unit BID KENNY Administration Heparin Sodium (Porcine) 3,000 unit 08/22/24 05:34 08/25/24 22:51 Heparin Sod Inj 1000 Unit/Ml Vial 10 Ml INDWELLCAT 09/05/24 05:33 3,000 unit PRN PRN Administration DIALYSIS Albumin Human 25 gm in 100 mls @ 100 mls/min 08/22/24 05:34 Albuminar-25 Ivpb IV PRN PRN DIALYSIS Ceftriaxone Sodium 1,000 mg/ 50 mls @ 100 mls/hr 08/25/24 09:00 08/26/24 08:21 Sodium Chloride IV 09/01/24 08:59 100 mls/hr QDAY KENNY Administration Insulin Human Lispro 0 unit 08/26/24 06:00 08/26/24 05:05 Insulin Lispro (Admelog) 1 Unit/0.01 Ml Unit SC 09/25/24 05:59 Not Given Q6HR [facility] Protocol Magnesium Hydroxide 30 ml 08/21/24 23:37 Milk Of Magnesia Susp 30 Ml Udc PO 09/20/24 23:36 QDAY PRN CONSTIPATION Midodrine 10 mg 08/24/24 11:00 08/26/24 05:09 Midodrine 5 Mg Tablet PO 09/23/24 10:59 10 mg Q6HR KENNY Administration Pharmacy Consult 1 each 08/23/24 08:21 Pharmacy To Consult Patient XX 09/22/24 08:20 PRN PRN Starting 24Hr Continuous/Intermittent Dialysis Sodium Chloride 3 ml 08/22/24 14:07 03/17/25 15:03 Sodium Chloride Rt Jing 0.9% 3 Ml Nebu INH 09/21/24 14:06 3 ml PRN PRN Administration SOLN Plan A 64-year-old male with significant past medical history of hypertension, insulin-dependent diabetes mellitus, CAD s/p PCI, HFrEF [EF 10 to 15%], CKD stage III, bilateral below-knee amputations, atrial fibrillation living in residential facility was brought to the hospital with chief complaints of worsening mentation, shortness of breath and generalized weakness for the past 2 days. # Acute on chronic kidney disease, stage IIIb Likely prerenal versus ATN in the setting of shock -Patient presented to the hospital with the complaints of shortness of breath worsening mentation and per patient's patient had abdominal pain and foul-smelling urine. -Baseline creatinine as of 07/2024 is 2.4 -On the day of admission, 08/21/2024, creatinine is 6.3 > 08/25, BUN 25, Cr 2.8 1 >08/26, BUN 18, Cr 2 -Urine analysis showed turbid urine with 2+ proteinuria, 3+ blood, 5180 RBC, 1928 WBC Plan -Patient got CRRT on 08/22 and one more session done on 08/23,HD on 08/26 -Will get permanent dialysis catheter tomorrow morning and will continue dialysis 2 times per week till patient renal functions come back to his normal baseline -Monitor renal functions and avoid nephrotoxic medications -Continue antibiotics # Hyperkalemia, resolved # Hyperphosphatemia, resolved # Lactic acidosis, resolved -Found to have potassium of 7.5 at the time of admission -Since 08/23/2024, Electrolytes are within normal limits #Acute encephalopathy 2/2 UTI #Chronic right parietal stroke #Shock #Acute hypoxic respiratory failure. #Complicated UTI #Chronic anemia #IDDM #Elevated LFT's To be treated per primary team Thank you for allowing us to involved in the care of the patient Patient plan of care was discussed with the attending physician, Dr. Marian Gates, PGY1 Attending Provider Attestation/Addendum Patient seen and examined with resident physician Dr. Pollard. Note reviewed, agree with findings and recommendations. Patient with sepsis and JADIEL. On broad-spectrum antibiotics. Patient received 2 conventional dialysis treatments and 2 CRRT treatment days. No urine output. I had a long conversation with the patient and he agreed for outpatient dialysis-twice weekly. Will arrange PermCath in AM. Outpatient dialysis to be arranged. Hep panel and PPD ordered.
[2024-08-26] MEDS: TUBERCULIN PPD INJ 5 UNIT/0.1 ML DOSE ID (10:19)
[2024-08-26 11:26] LABS: Hepatitis B Surface Antigen Non Reactive (Non React)
--- NOTE | 2024-08-26 12:41 | PC.NURSE ---
notified by Alexandrea woo patient can be brought down once CBC lab draw has been collected.
--- NOTE | 2024-08-26 13:55 | ESPR_ITS ---
<Statement entered by Janee Velazquez MD - 08/27/24 12:40> Personally evaluated the patient with resident physician patient is doing much better transfer to telemetry no chest pain shortness of breath cardiac agree. Showed some improvement from LV function from previous admission ejection fraction now at 40% in the high slightly high is not 20% with severely depressed in May but now ejection fraction for which is a good sign clinically doing better still requiring midodrine the dose that should be decreased slowly. Recommend continue medical management agree with treatment plan recommendation as documented by Dr Raman PGY 3 resident physician Documentation for date of: 08/26/24 Subjective Subjective Interval history: Overnight events, lab/imaging results, and notes reviewed. Patient examined bedside, reports feeling well today without any complaints, blood pressure noted to be improving today 110/71 this afternoon, still on midodrine 10mg [id number]. Recommend reducing midodrine dose to 10mg TID, goal of MAP ~70. Heart rate remains controlled, currently on amiodarone 200mg qday. Patient has agreed to hemodialysis, nephrology team guiding dialysis sessions. Echo completed, revealing EF 40% with anteroseptal akinesis with moderate LV dysfunction. Exam Vital Signs Temp Pulse Resp BP Pulse Ox O2 Del Method O2 Flow Rate 97.9 F 70 23 H 110/71 99 Room Air 1 08/26/24 12:00 08/26/24 12:00 08/26/24 12:00 08/26/24 12:00 08/26/24 12:00 08/26/24 12:00 08/26/24 12:00 Narrative Exam General: AOx3, cooperative, in no acute distress HEENT: Atraumatic/normocephalic, RUPERT Heart: RRR, S1 and S2 without clicks or murmurs Lungs: Clear on auscultation bilaterally, no difficulty breathing Abdomen: Soft, nontender. Bowel sounds present on all quadrants Skin: Bilateral lower extremity BKAs, no edema or cyanosis noted Neuro: No focal neurological deficits noted on appearance Objective Labs 08/26/24 13:40 08/26/24 05:30 Labs: Laboratory Results - last 24 hr 08/24/24 08/26/24 09:05 05:30 WBC 8.6 RBC 2.55 L Hgb 6.6 L* Hct 20.6 L* MCV 81 MCH 25.9 MCHC 32.0 RDW Std Deviation 61.6 H Plt Count 123 L D Neut % (Auto) 85 H Lymph % (Auto) 6 L [place] % (Auto) 6 Eos % (Auto) 2 Baso % (Auto) 0 Neut # (Auto) 7.3 Lymph # (Auto) 0.6 L [place] # (Auto) 0.5 Eos # (Auto) 0.1 Baso # (Auto) 0.0 Immature Gran # (Auto) 0.08 H Absolute Nucleated RBC 0.00 Immature Gran % 1 H Nucleated RBC % 0 PT 11.0 INR 1.0 Sodium 138 Potassium 3.6 Chloride 101 Carbon Dioxide 25.4 Anion Gap 12 BUN 18 Creatinine 2.0 H D Estim Creat Clear Calc 25.4 L eGFR 36 L BUN/Creatinine Ratio 9 L Glucose 167 H Calculated Osmolality 281 Calcium 8.4 Corrected Calcium 9.2 Total Bilirubin 0.3 AST 16 ALT 57 H Alkaline Phosphatase 80 Total Protein 5.6 L Albumin 3.0 L Globulin 2.6 Albumin/Globulin Ratio 1.2 Hep Bs Antigen Non Reactive Blood Type AB Positive Antibody Screen NEGATIVE Crossmatch See Detail Blood Bank Wristband ID Yes ABG Interpretation ABG results: 08/21/24 08/21/24 08/22/24 20:24 23:24 04:35 ABG pH 7.26 L ABG pCO2 31 L ABG pO2 92 ABG HCO3 14 L ABG O2 Saturation 97 ABG Base Excess -12 L VBG pH 7.32 L 7.22 L VBG pCO2 30 L 35 L VBG pO2 66 H 85 H VBG Base Excess -10 L -12 L 08/24/24 08:40 ABG pH ABG pCO2 ABG pO2 ABG HCO3 ABG O2 Saturation ABG Base Excess VBG pH 7.36 VBG pCO2 31 L VBG pO2 80 H VBG Base Excess -8 L Quality Measures Quality Measures none Advance care planning discussed with:: patient Assessment & Plan Assessment Current Active Medications: Generic Name Dose Route Start Last Admin Trade Name Freq PRN Reason Stop Dose Admin Acetaminophen 650 mg 08/21/24 23:37 Acetaminophen 325 Mg Tablet PO 09/20/24 23:36 Q4HR PRN PAIN SCALE 1-3 (mild Acetaminophen 650 mg 08/21/24 23:37 Acetaminophen Supp 650 Mg Supp [place] 09/20/24 23:36 Q4HR PRN PAIN SCALE 1-3 (mild Acetylcysteine 3 ml 08/26/24 15:00 Acetylcysteine Rt Jing 10% 4 Ml Nebu INH 09/25/24 14:59 Q8HRRT KENNY Al Hydrox/Mg Hydrox/Simethicone 30 ml 08/22/24 00:31 Mg Hyd/Al Hyd/Stephy (Maalox Reg) Susp 30 Ml Udc PO 09/20/24 23:36 Q4HR PRN Heartburn or Upset Stomach Albuterol 2.5 mg 08/26/24 15:00 Albuterol Rt 2.5 Mg/0.5 Ml Nebu INH 09/25/24 14:59 Q8HRRT KENNY Amiodarone HCl 200 mg 08/24/24 15:00 08/26/24 08:20 Amiodarone Hcl 200 Mg Tablet PO 09/23/24 14:59 200 mg QDAY KENNY Administration Citric Acid/Sodium Citrate 30 ml 08/24/24 21:00 08/26/24 08:21 Citric Acid/Sodium Citr 15 Ml Udc (Bicitra) PO 09/23/24 20:59 30 ml BID KENNY Administration Dextrose 25 ml 08/22/24 04:20 08/22/24 11:43 Dextrose 50%-Water Inj 50 Ml Syringe IV 09/21/24 04:19 25 ml Q15MIN PRN Administration BG 50-70 responsive npo pt Dextrose 50 ml 08/22/24 04:20 Dextrose 50%-Water Inj 50 Ml Syringe IV 09/21/24 04:19 Q15MIN PRN BG <50 OR BG <70 & pt unresponsive Ferrous Sulfate 325 mg 08/24/24 08:30 08/26/24 08:21 Ferrous Sulf 325 Mg Tablet PO 09/23/24 08:29 325 mg QOD KENNY Administration Heparin Sodium (Porcine) 5,000 unit 08/22/24 09:00 08/25/24 21:00 Heparin Sod Inj 5000 Unit/Ml Vial SC 09/05/24 08:59 5,000 unit BID KENNY Administration Heparin Sodium (Porcine) 3,000 unit 08/22/24 05:34 08/25/24 22:51 Heparin Sod Inj 1000 Unit/Ml Vial 10 Ml INDWELLCAT 09/05/24 05:33 3,000 unit PRN PRN Administration DIALYSIS Albumin Human 25 gm in 100 mls @ 100 mls/min 08/22/24 05:34 Albuminar-25 Ivpb IV PRN PRN DIALYSIS Ceftriaxone Sodium/Dextrose 50 mls @ 100 mls/hr 08/27/24 09:00 Rocephin/D5w 1gm Iv Premix IV 09/01/24 08:59 QDAY [facility]1983 Insulin Human Lispro 0 unit 08/26/24 06:00 08/26/24 05:05 Insulin Lispro (Admelog) 1 Unit/0.01 Ml Unit SC 09/25/24 05:59 Not Given Q6HR [facility] Protocol Magnesium Hydroxide 30 ml 08/21/24 23:37 Milk Of Magnesia Susp 30 Ml Udc PO 09/20/24 23:36 QDAY PRN CONSTIPATION Midodrine 10 mg 08/24/24 11:00 08/26/24 05:09 Midodrine 5 Mg Tablet PO 09/23/24 10:59 10 mg Q6HR KENNY Administration Pharmacy Consult 1 each 08/23/24 08:21 Pharmacy To Consult Patient XX 09/22/24 08:20 PRN PRN Starting 24Hr Continuous/Intermittent Dialysis Sodium Chloride 3 ml 08/22/24 14:07 08/25/24 15:03 Sodium Chloride Rt Jing 0.9% 3 Ml Nebu INH 09/21/24 14:06 3 ml PRN PRN Administration SOLN Plan Patient is a 64-year-old male past medical history of HFrEF (EF 10-15%), ischemic cardiomyopathy, CKD IIIb, CAD s/p stents, atrial fibrillation, NSVT, hypertension, hyperlipidemia, IDDM2, and bilateral BKAs who was admitted to the ICU for cardiogenic shock and acute on chronic renal failure requiring vasopressor support and CRRT. Patient was noted to have severe bradycardia in 40s both in ED and en route to ED, given atropine x2 however bradycardia did not resolve, external pacing was initiated. Cardiology team consulted for severe bradycardia in setting of hyperkalemia 7.5. 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 Atropine x2 did not improve bradycardia, external pacing initiated. - Echo (May 2024): EF 10-15% with severe systolic dysfunction. Grade III DD with akinetic apex with severe global hypokinesis - Echo (Aug 2024): EF 40% with anteroseptal akinesis with moderate LV dysfunction. - Levophed and Dopamine started, have been weaned off - Nephrology team following, CRRT per nephrology recommendations. Nephrology team may consider dialysis if patient is agreeable, creatinine uptrended 2.8 on 08/25 - Monitor electrolytes, goal of K > 4 and Magnesium > 2 - Bradycardia likely caused by hyperkalemia - Given history of atrial fibrillation and NSVT, advise resuming amiodarone. For concerns of bradycardia, advise 200mg amiodarone qday (reduced from patient's home BID dose). Given bradycardia and hypotension concerns, agree with holding home metoprolol for now until clinical status improves - If patient continues dialysis outpatient, may consider adding spironolactone to regimen - ICD not indicated in patient for following reasons: Patient has NYHA Class IV with drug-refractory CHF, reasonable expectation of survival with an acceptable functional status < 6 months. - Advise reducing midodrine dose to 10mg TID with MAP goal ~ 70. #JADIEL on CKD?on CRRT #Hyperkalemia #Lactic acidosis #History of osteomyelitis status post BKA - Management per primary team Patient case discussed with attending physician Dr. Marcus Raman, DO PGY-3
--- NOTE | 2024-08-26 14:00 | ESPR_ITS ---
<Statement entered by Harjinder Neville MD - 08/26/24 20:43> Patient was seen and examined at the bedside. Overnight, patient had a hemoglobin drop to 6.6 and 1 unit was transfused. Patient was more awake and alert and was contemplating regarding placement of dialysis catheter. Kidney functions did not show much improvement. Urine culture showed no growth. Repeat echo showed EF 50% with mild to moderate MR. Given patient had acute blood loss anemia we will follow-up with FOBT and likely consider GI consult if necessary. Tunneled dialysis catheter was placed. Nephrology is following the case. Patient be set up for outpatient hemodialysis. Hepatitis panel, PPD were ordered. web services professional were updated. All labs and orders were reviewed. I saw and examined the patient, and I agree with current management stated by Dr Gabe MD,PGY1. Plan of care was discussed with the attending physician and resident physician. Disclaimer: Despite multiple revisions, due to the dictation software being used, the document bellow may not be free of grammatical errors including phonetic/typographic errors. However, this does not deter from our commitment to providing health care in the patient's best interest in mind. Dr. Kimberli MD, PGY 2 Documentation for date of: 08/26/24 Subjective Subjective Interval history: Overnight team reported pt Hgb dropped to 6.6 and 1 unit pRBC is transfused. pt is seen and examined at bedside this morning, pt is more alert and awake, as well as engaging in more conversation than he did yesterday. post transfusion Hgb is 8.5. Pt denies any dizness, nausea or vomiting, pt also denies chest pain or abdominal pain. Pt continues to have poor oral intake and eats less than 25% of his meals. Telemetry is review and pt is in sinus rhythm. remainder of labs are stable and creatinine is downtrending to 2.0 today. blood and urine cultures have no growth. Pt is not making any urine therefore will order permanent dialysis cath and remove jameson. Repeat echo showed EF 40%, and mild to moderate mitral regurgitation and moderate TR. which is improved from previous echo of EF 10-15%. Will order FOBT, to determine if pt will need further work up as colonoscopy. Exam Vital Signs Temp Pulse Resp BP Pulse Ox O2 Del Method O2 Flow Rate 97.9 F 70 23 H 110/71 99 Room Air 1 08/26/24 12:00 08/26/24 12:00 08/26/24 12:00 08/26/24 12:00 08/26/24 12:00 08/26/24 12:00 08/26/24 12:00 Narrative Exam GENERAL: A&Ox3 . awake, ill appear elderly male. NEURO: no focal neurological deficits HEENT: Atraumatic, Normocephalic. mucous membranes moist. Eyes open, symmetrical, & clear HEART: Normal Heart Sounds LUNGS: Clear to auscultation with no wheezing or crackles. ABDOMEN: soft, non-distended, non-tender, bowel sounds heard, no guarding or rebound tenderness SKIN: No Rash or ecchymoses EXTREMITIES: bilateral BKA, amputation of the digits 3,4,5 of the right hand Objective Labs 08/27/24 05:02 08/27/24 05:02 Labs: Laboratory Results - last 24 hr 08/24/24 08/26/24 09:05 05:30 WBC 8.6 RBC 2.55 L Hgb 6.6 L* Hct 20.6 L* MCV 81 MCH 25.9 MCHC 32.0 RDW Std Deviation 61.6 H Plt Count 123 L D Neut % (Auto) 85 H Lymph % (Auto) 6 L Perkins % (Auto) 6 Eos % (Auto) 2 Baso % (Auto) 0 Neut # (Auto) 7.3 Lymph # (Auto) 0.6 L Perkins # (Auto) 0.5 Eos # (Auto) 0.1 Baso # (Auto) 0.0 Immature Gran # (Auto) 0.08 H Absolute Nucleated RBC 0.00 Immature Gran % 1 H Nucleated RBC % 0 PT 11.0 INR 1.0 Sodium 138 Potassium 3.6 Chloride 101 Carbon Dioxide 25.4 Anion Gap 12 BUN 18 Creatinine 2.0 H D Estim Creat Clear Calc 25.4 L eGFR 36 L BUN/Creatinine Ratio 9 L Glucose 167 H Calculated Osmolality 281 Calcium 8.4 Corrected Calcium 9.2 Total Bilirubin 0.3 AST 16 ALT 57 H Alkaline Phosphatase 80 Total Protein 5.6 L Albumin 3.0 L Globulin 2.6 Albumin/Globulin Ratio 1.2 Hep Bs Antigen Non Reactive Blood Type AB Positive Antibody Screen NEGATIVE Crossmatch See Detail Blood Bank Wristband ID Yes ABG Interpretation ABG results: 03/08/21/24 08/22/24 20:24 23:24 04:35 ABG pH 7.26 L ABG pCO2 31 L ABG pO2 92 ABG HCO3 14 L ABG O2 Saturation 97 ABG Base Excess -12 L VBG pH 7.32 L 7.22 L VBG pCO2 30 L 35 L VBG pO2 66 H 85 H VBG Base Excess -10 L -12 L 08/24/24 08:40 ABG pH ABG pCO2 ABG pO2 ABG HCO3 ABG O2 Saturation ABG Base Excess VBG pH 7.36 VBG pCO2 31 L VBG pO2 80 H VBG Base Excess -8 L Quality Measures Quality Measures none Advance care planning discussed with:: patient and spouse Assessment & Plan Assessment Current Active Medications: Generic Name Dose Route Start Last Admin Trade Name Freq PRN Reason Stop Dose Admin Acetaminophen 650 mg 08/21/24 23:37 Acetaminophen 325 Mg Tablet PO 09/20/24 23:36 Q4HR PRN PAIN SCALE 1-3 (mild Acetaminophen 650 mg 08/21/24 23:37 Acetaminophen Supp 650 Mg Supp NJ 09/20/24 23:36 Q4HR PRN PAIN SCALE 1-3 (mild Acetylcysteine 3 ml 08/26/24 15:00 Acetylcysteine Rt Jing 10% 4 Ml Nebu INH 09/25/24 14:59 Q8HRRT KENNY Al Hydrox/Mg Hydrox/Simethicone 30 ml 08/22/24 00:31 Mg Hyd/Al Hyd/Stephy (Maalox Reg) Susp 30 Ml Udc PO 09/20/24 23:36 Q4HR PRN Heartburn or Upset Stomach Albuterol 2.5 mg 08/26/24 15:00 Albuterol Rt 2.5 Mg/0.5 Ml Nebu INH 09/25/24 14:59 Q8HRRT KENNY Amiodarone HCl 200 mg 08/24/24 15:00 08/26/24 08:20 Amiodarone Hcl 200 Mg Tablet PO 09/23/24 14:59 200 mg QDAY KENNY Administration Citric Acid/Sodium Citrate 30 ml 08/24/24 21:00 08/26/24 08:21 Citric Acid/Sodium Citr 15 Ml Udc (Bicitra) PO 09/23/24 20:59 30 ml BID KENNY Administration Dextrose 25 ml 08/22/24 04:20 08/22/24 11:43 Dextrose 50%-Water Inj 50 Ml Syringe IV 09/21/24 04:19 25 ml Q15MIN PRN Administration BG 50-70 responsive npo pt Dextrose 50 ml 08/22/24 04:20 Dextrose 50%-Water Inj 50 Ml Syringe IV 09/21/24 04:19 Q15MIN PRN BG <50 OR BG <70 & pt unresponsive Ferrous Sulfate 325 mg 08/24/24 08:30 08/26/24 08:21 Ferrous Sulf 325 Mg Tablet PO 09/23/24 08:29 325 mg QOD KENNY Administration Heparin Sodium (Porcine) 5,000 unit 08/22/24 09:00 08/25/24 21:00 Heparin Sod Inj 5000 Unit/Ml Vial SC 09/05/24 08:59 5,000 unit BID KENNY Administration Heparin Sodium (Porcine) 3,000 unit 08/22/24 05:34 08/25/24 22:51 Heparin Sod Inj 1000 Unit/Ml Vial 10 Ml INDWELLCAT 09/05/24 05:33 3,000 unit PRN PRN Administration DIALYSIS Albumin Human 25 gm in 100 mls @ 100 mls/min 08/22/24 05:34 Albuminar-25 Ivpb IV PRN PRN DIALYSIS Ceftriaxone Sodium/Dextrose 50 mls @ 100 mls/hr 08/27/24 09:00 Rocephin/D5w 1gm Iv Premix IV 09/01/24 08:[address] [facility] Insulin Human Lispro 0 unit 08/26/24 06:00 08/26/24 05:05 Insulin Lispro (Admelog) 1 Unit/0.01 Ml Unit SC 09/25/24 05:[address] [facility] Protocol Magnesium Hydroxide 30 ml 08/21/24 23:37 Milk Of Magnesia Susp 30 Ml Udc PO 09/20/24 23:36 QDAY PRN CONSTIPATION Midodrine 10 mg 08/24/24 11:00 08/26/24 05:09 Midodrine 5 Mg Tablet PO 09/23/24 10:[address] [facility] Administration Pharmacy Consult 1 each 08/23/24 08:21 Pharmacy To Consult Patient XX 09/22/24 08:20 PRN PRN Starting 24Hr Continuous/Intermittent Dialysis Sodium Chloride 3 ml 08/22/24 14:07 08/25/24 15:03 Sodium Chloride Rt Jing 0.9% 3 Ml Nebu INH 09/21/24 14:06 3 ml PRN PRN Administration SOLN Plan Mr. Galdamez is a 64-year-old male with a past medical history of hypertension, hyperlipidemia, CKD stage IIIb, diabetes, bilateral BKA's, A-fib, CAD status post stent, HFrEF with ejection fraction 10 to 15% who presented to the ED on 08/21/2024 from [facility] with altered mental status and generalized weakness. #Acute blood loss anemia #Iron deficiency anemia -Morning labs Hgb 6.6 and 1 unit transfused -source of bleeding is yet to be determined, upper vs. lower GI, Pt also developed ESRD could be due to decrease erythropoitin -Iron panel: Iron 42, TIBC 235, Iron sat 17 and unsat Iron binding 193 -FOBT ordered -Will consider GI consult if FOBT is positive. #Cardiogenic shock #symptomatic bradycardia 2/2 to hyperkalemia #HFrEF (10-15%) -On admission pt was found to have bradycardia with HR in 40's, atropine x2 was given in the ED -Due to hypotension with BP of 77/55 and MAP <65, pt was started on levophed and dopamine drips, eventually weaned off on 08/24 -started on midodrine 10mg Q6HR -Per cardiology- ICD not indicated in patient for following reasons: Patient has NYHA Class IV with drug-refractory CHF, reasonable expectation of survival with an acceptable functional status < 6 months -Per cardiology, patient currently not a candidate for surgical intervention -On discharge, patient will benefit from GDMT optimized with Entresto if blood pressure tolerates. -Cardio following #history of A-fib -Pt has history of a-fib and home meds include metoprolol, amiodarone and eliquis. metoprolol and eliquis -currently on hold due to bradycardia and acute blood loss anemia -Pt is in sinus rhythm and will resume meds when able -resumed amiodarone Qday #New onset hemodialysis post tunneled dialysis catheter, 08/26 # Worsening JADIEL on CKD required CRRT #Lactic acidosis #Hyperkalemia -creatinine on admission 6.3, GFR 9, lactic acid 5.1, potassium on admission 7.5 -During this ICU admission pt is started on CRRT -ordered -nephrology following #UTI #hematuria #pyuria -Urinalysis is positive for leukocyte esterace, urine rbc 5180, urine wbc 1928 -urine culture show no growth -Pt is started on ceftriaoxone #insulin dependent Type 2 diabetes, uncontrolled #Hx of osteomylitis s/p bialteraly BKA -A1c 10.2 -Pt home medications include glargine 15 units BID -insulin sliding scale started -hypoglycemic protocol in place -Pt underwent bilateral BKA due to long standing uncontrolled T2DM #Transiminitis -improving -on admission AST and ALT mildy elevated, T. bili and ALP with in normal range. -Likely secondary to shock, will continue to monitor as shock has now resolved. Health Maintenance Disposition: telemetry DVT Prophylaxis: Heparin 5000 units SC Q12 hrs GI Prophylaxis: not indicated Diet: regular diet plus ensure Lines: Peripheral lines Code status: DNR Assessment and plan discussed with my senior resident Dr. Neville & attending physician Dr. Matthew Bernal (PGY-1)- Internal medicine resident Attending Provider Attestation/Addendum I have discussed and was present for the essential components of the history, physical examination, diagnosis, and treatment plan with the resident. I agree with the patient's care as documented by the resident and amended herein by me. Dann Castro DO. Although this document has been carefully reviewed, there may still be some phonetic and other typographical errors. These errors are purely grammatical due to imperfections in the software program and should not be construed in any way to compromise the substance of the patient's medical care during this visit.
[2024-08-26 14:10] LABS: Hematocrit 26.1 % (41.0-53.0)
--- NOTE | 2024-08-26 14:13 | XR_ITS ---
Examination: Venous access removal temporary dialysis catheter Fluoroscopy 3 spot fluoroscopic chest films Exam date and time: August 26, 2024 1424 hours INDICATIONS: Status post insertion permanent tunneled dialysis catheter today, no longer needs a temporary dialysis catheter for long-term dialysis TECHNIQUE AND FINDINGS: Informed consent provided. Timeout performed. Skin prepped over the left neck and sterile drape applied hand hygiene Careful removal of the temporary dialysis catheter, direct pressure applied for hemostasis Estimated blood loss 0 cc Fluoroscopy 0.1 minute radiation dose 0.19 milligray 3 spot fluoroscopic chest films, the last 2 films no longer demonstrating the temporary dialysis catheter IMPRESSION: Successful venous assess removal temporary left internal jugular dialysis catheter
--- NOTE | 2024-08-26 14:13 | ECHO_ITS ---
Transthoracic Echo Report Ht (in): 54 Wt (lb): 129 Exam Location: Portable Status: Inpatient Director Sterile Processing: PAREDES Merlyn^^^^ Indications: Procedure Performed: BP: 119 / 79 HR: 74 Technical Quality: Fair MEASUREMENTS (Male / Female) Normal Values 2D ECHO LV Diastolic Diameter PLAX 3.7 cm 4.2 - 5.9 / 3.9 - 5.3 cm LV Systolic Diameter PLAX 3.1 cm IVS Diastolic Thickness 0.9 cm 0.6 - 1.0 / 0.6 - 0.9 cm LVPW Diastolic Thickness 0.7 cm 0.6 - 1.0 / 0.6 - 0.9 cm LV Relative Wall Thickness 0.4 LVOT Diameter 1.8 cm Aortic Root Diameter 3.2 cm LA Systolic Diameter LX 3.6 cm 3.0 - 4.0 / 2.7 - 3.8 cm LV Ejection Fraction MOD BP 50.7 % >= 55 % LV Cardiac Index MOD BP 3941.4 cm?/min?m? LV Ejection Fraction MOD 4C 60.3 % LV Cardiac Index MOD 4C 4981.5 cm?/min?m? LV Ejection Fraction 4C AL 61.0 % LV Cardiac Index 4C AL 5153.6 cm?/min?m? LV Ejection Fraction MOD 2C 42.6 % LV Cardiac Index MOD 2C 2916.0 cm?/min?m? LV Ejection Fraction 2C AL 45.2 % LV Cardiac Index 2C AL 3119.9 cm?/min?m? LA Volume Index 58.6 cm?/m? 16 - 28 cm?/m? DOPPLER AV Peak Velocity 131.0 cm/s AV Peak Gradient 6.9 mmHg AV Mean Gradient 5.0 mmHg AV Velocity Time Integral 25.8 cm LVOT Peak Velocity 70.2 cm/s LVOT Peak Gradient 2.0 mmHg LVOT Velocity Time Integral 15.7 cm LVOT Cardiac Index 1941.6 cm?/min?m? AV Area Cont Eq vti 1.5 cm? AV Area Cont Eq pk 1.4 cm? MV Area PHT 6.7 cm? MR Peak Velocity 483.0 cm/s MR Peak Gradient 93.3 mmHg Mitral E Point Velocity 64.6 cm/s Mitral A Point Velocity 42.8 cm/s Mitral E to A Ratio 1.5 LV E' Lateral Velocity 8.4 cm/s Mitral E to LV E' Lateral Ratio 7.7 LV E' Septal Velocity 6.1 cm/s Mitral E to LV E' Septal Ratio 10.6 TR Peak Velocity 345.7 cm/s TR Peak Gradient 47.8 mmHg PV Peak Velocity 73.2 cm/s PV Peak Gradient 2.1 mmHg RVOT Peak Velocity 48.8 cm/s FINDINGS Left Ventricle The left ventricular cavity size is normal. with anterior septal akinesis with moderate LV dysfunction LVEF 40% Right Ventricle The right ventricle is normal in size and systolic function. The estimated right ventricular systolic pressureis moderately elevated, 45 mmHg. Left Atrium Moderately increased left atrial volume 58.6 mL/m?. Right Atrium The right atrium is normal by two-dimensional imaging, color flow and Doppler imaging with no structural abnormalities, no thrombus formation present. Atrial Septum The interatrial septum appears normal with no evidence of a shunt. Aorta The aorta is normal by two-dimensional, color flow and Doppler interrogation. Mitral Valve Moderate mitral regurgitation. Moderate mitral annular calcification. Aortic Valve Aortic valve sclerosis. Tricuspid Valve There is moderate to severe tricuspid valve regurgitation. Pulmonic Valve Trivial pulmonic valve regurgitation. Vessels The pulmonary artery appears normal. The inferior vena cava pulmonary and hepatic veins appear normal. Pericardium The pericardium is normal by two-dimensional imaging. There is no significant pericardial effusion. CONCLUSIONS indication: evaluate LV function Ischemic cardiomyopatrhy Anteroseptal akinesis with moderate LV dysfunction approximate ejection fraction is 40%. Normal RV function normal PA pressure Mild to moderate mitral regurgitation Moderate TR Ankita Patino (Electronically Signed) Final Date: 26 August 2024 12:57
[2024-08-26 14:16] LABS: Hemoglobin 8.5 g/dL (13.5-16.0)
[2024-08-26] MEDS: LIDOCAINE INJ PF 1% 30 ML VIAL 10 ML INFL (14:26)
[2024-08-26] MEDS: HEPARIN SOD LOCK SYR 100 UNIT/ML 500 UNIT STFIELD (14:26)
[2024-08-26] MEDS: fentaNYL CIT INJ 50 mCg/ML AMP 2ML IVP (14:26)
[2024-08-26] MEDS: HEPARIN SOD INJ 1000 UNIT/ML VIAL 3500 UNIT INDWELLCAT (14:40)
--- NOTE | 2024-08-26 15:00 | PC.NURSE ---
1500 patient had tunneled hemodialysis catheter insertion to right IJ, removal of left IJ temporary dialysis catheter, dresssing dry with no bleeding, report given to dontae NELSON, patient transferred back to room 270 with tele box
[2024-08-26] MEDS: INSULIN LISPRO (AdmeLOG) 1 UNIT/0.01 ML UNIT SC (17:14)
[2024-08-27] VITALS (30 sets, daily range): BP systolic 92–129; BP diastolic 57–72; PULSE 62–86; RESP 14–97; TEMP 36.3–37.1; O2SAT 95–100; BMI 20.3
[2024-08-27] MEDS: INSULIN LISPRO (AdmeLOG) 1 UNIT/0.01 ML UNIT SC ×3 (00:18→23:36)
[2024-08-27 03:27] LABS: OBS Card Lot # 23001; OBS Developer Lot # 23002; OBS Performed By pozoc; OBS QC OK? Yes; Occult Blood, Stool Negative (Negative)
[2024-08-27] MEDS: MIDODRINE 5 MG TABLET 10 MG PO ×2 (05:33→13:50)
[2024-08-27 05:55] LABS: Basophils % (Auto) 0 % (0-2.5); Eosinophils # (Auto) 0.2 Thou/mm3 (0.0-0.5); Eosinophils % (Auto) 3 % (0-10); Hematocrit 25.4 % (41.0-53.0); Immature Granulocytes % (Auto) 1 % (0-0); Immature Granulocytes Auto 0.04 Thou/mm3 (0.00-0.00); Lymphocytes % (Auto) 14 % (10-50); Mean Corpuscular HGB Conc 32.7 g/dl (31.0-37.0); Mean Corpuscular Volume 83 fL (80-100); Monocytes # (Auto) 0.8 Thou/mm3 (0.0-0.8); Monocytes % (Auto) 10 % (0-12); Neutrophils # (Auto) 5.3 Thou/mm3 (1.8-7.7); Neutrophils % (Auto) 72 % (37-80); Nucleated Red Blood Cell % 0 /100 WBC (0); Platelet Count 128 Thou/mm3 (140-440); RDW Standard Deviation 58.3 fL (35.1-43.9); Red Blood Count 3.07 Miln/mm3 (4.50-5.90); White Blood Count 7.3 Thou/mm3 (3.8-10.6)
[2024-08-27 05:59] LABS: Hemoglobin 8.3 g/dL (13.5-16.0)
[2024-08-27 06:12] LABS: Prothrombin Time 10.9 Seconds (9.0-12.2)
[2024-08-27 06:17] LABS: Alanine Aminotransferase 41 U/L (10-49); Albumin/Globulin Ratio 1.2 (1.2-2.2); Alkaline Phosphatase 72 U/L (46-116); Anion Gap 9 (7-16); Aspartate Amino Transferase 15 U/L (0-34); BUN/Creatinine Ratio 10 Ratio (12-20); Bilirubin,Total 0.3 mg/dL (0.3-1.2); Blood Urea Nitrogen 30 mg/dL (9-23); Calcium 8.3 mg/dL (8.3-10.6); Calcium (Corrected) 9.1 mg/dL (8.5-10.1); Carbon Dioxide 28.3 mMol/L (20.0-31.0); Chloride 101 mMol/L (98-107); Estimated Creatinine Clearance 16.9 mL/min (>60); Globulin 2.5 gm/dL (2.3-3.5); Glucose 71 mg/dL (74-106); Osmolality,Calculated 279 (275-295); Phosphorous 1.5 mg/dL (2.4-5.1); Potassium 3.4 mMol/L (3.4-5.1); Sodium 138 mMol/L (136-145); Total Protein 5.5 gm/dL (5.7-8.2); eGFR 22 See Note
[2024-08-27] MEDS: ACETYLCYSTEINE RT SOL 10% 4 ML NEBU 3 ML INH ×2 (06:57→22:50)
[2024-08-27] MEDS: ALBUTEROL RT 2.5 MG/0.5 ML NEBU INH ×2 (06:58→22:50)
[2024-08-27] MEDS: AMIODARONE HCL 200 MG TABLET PO (09:03)
[2024-08-27] MEDS: CITRIC ACID/SODIUM CITR 15 ML UDC (BICITRA) 30 ML PO ×2 (09:04→21:35)
[2024-08-27] MEDS: cefTRIAXone/D5w 1gm IV premix 50 ML IV (09:04)
--- NOTE | 2024-08-27 09:37 | PC.SS ---
SS follow up note; SS sent tunnel cath placement to SUKUMAR Spann.
--- NOTE | 2024-08-27 13:36 | ESPR_ITS ---
<Statement entered by Harjinder Neville MD - 08/27/24 14:26> Patient was seen and examined at the bedside. No acute overnight events were reported. Blood pressure this morning was slightly soft. Hemoglobin around 8.3. Tunneled dialysis catheter was placed yesterday. FOBT came out negative. [employer] Android Developer recommended to hold off on dialysis and evaluate the patient's urine output tomorrow and will decide based on that. Kidney functions continue to decline with BUN 30 and creatinine 3.0. Blood sugars were slightly decreased as patient is not liking the food in the hospital. Electrolytes were repleted. Will follow-up with nephrology recommendations and continuing Rocephin for urine tract infection. Most likely blood loss explained by kidney failure. Epo injection was given x 1. All labs and orders were reviewed. I saw and examined the patient, and I agree with current management stated by Dr Gabe MD,PGY1. Plan of care was discussed with the attending physician and resident physician. Disclaimer: Despite multiple revisions, due to the dictation software being used, the document bellow may not be free of grammatical errors including phonetic/typographic errors. However, this does not deter from our commitment to providing health care in the patient's best interest in mind. Dr. Kimberli MD, PGY 2 Documentation for date of: 08/27/24 Subjective Subjective Interval history: No acute overnight events. Patient seen and examined at bedside this morning. Vitals are stable patient is saturating 95% on 1 L oxygen via nasal cannula. Due to acute anemia FOBT was obtained which was negative. Hemoglobin is stable at 8.3. Patient underwent tunneled dialysis catheter placement today and per nephrology recommendations patient may undergo HD dialysis tomorrow depending on his labs are. Today labs are stable with the exception of creatinine of 3.0 which is uptrending. Patient has no other complaints, patient continues to have poor oral intake that he contributes that to not liking the hospital food therefore encouraged the to bring food from home. Exam Vital Signs Temp Pulse Resp BP Pulse Ox O2 Del Method O2 Flow Rate 97.3 F 68 19 96/63 97 Room Air 2 08/27/24 12:00 08/27/24 12:00 08/27/24 12:00 08/27/24 12:00 08/27/24 12:00 08/27/24 12:08/26/24 14:46 Narrative Exam GENERAL: A&Ox3 . awake, ill appear elderly male. NEURO: no focal neurological deficits HEENT: Atraumatic, Normocephalic. mucous membranes moist. Eyes open, symmetrical, & clear HEART: Normal Heart Sounds LUNGS: Clear to auscultation with no wheezing or crackles. ABDOMEN: soft, non-distended, non-tender, bowel sounds heard, no guarding or rebound tenderness SKIN: No Rash or ecchymoses EXTREMITIES: bilateral BKA, amputation of the digits 3,4,5 of the right hand Objective Labs 08/27/24 05:02 08/27/24 05:02 Labs: Laboratory Results - last 24 hr 08/26/24 08/27/24 08/27/24 13:40 03:19 05:02 WBC 7.3 RBC 3.07 L Hgb 8.5 L D 8.3 L Hct 26.1 L 25.4 L MCV 83 MCH 27.0 MCHC 32.7 RDW Std Deviation 58.3 H Plt Count 128 L Neut % (Auto) 72 Lymph % (Auto) 14 [place] % (Auto) 10 Eos % (Auto) 3 Baso % (Auto) 0 Neut # (Auto) 5.3 Lymph # (Auto) 1.0 [place] # (Auto) 0.8 Eos # (Auto) 0.2 Baso # (Auto) 0.0 Immature Gran # (Auto) 0.04 H Absolute Nucleated RBC 0.00 Immature Gran % 1 H Nucleated RBC % 0 PT 10.9 INR 1.0 Sodium 138 Potassium 3.4 Chloride 101 Carbon Dioxide 28.3 Anion Gap 9 BUN 30 H Creatinine 3.0 H D Estim Creat Clear Calc 16.9 L eGFR 22 L BUN/Creatinine Ratio 10 L Glucose 71 L D Calculated Osmolality 279 Calcium 8.3 Corrected Calcium 9.1 Phosphorus 1.5 L Magnesium 2.0 Total Bilirubin 0.3 AST 15 ALT 41 Alkaline Phosphatase 72 Total Protein 5.5 L Albumin 3.0 L Globulin 2.5 Albumin/Globulin Ratio 1.2 Stool Occult Blood Negative ABG Interpretation ABG results: 08/21/24 08/21/24 08/22/24 20:24 23:24 04:35 ABG pH 7.26 L ABG pCO2 31 L ABG pO2 92 ABG HCO3 14 L ABG O2 Saturation 97 ABG Base Excess -12 L VBG pH 7.32 L 7.22 L VBG pCO2 30 L 35 L VBG pO2 66 H 85 H VBG Base Excess -10 L -12 L 08/24/24 08:40 ABG pH ABG pCO2 ABG pO2 ABG HCO3 ABG O2 Saturation ABG Base Excess VBG pH 7.36 VBG pCO2 31 L VBG pO2 80 H VBG Base Excess -8 L Quality Measures Quality Measures none Advance care planning discussed with:: patient Assessment & Plan Assessment Current Active Medications: Generic Name Dose Route Start Last Admin Trade Name Freq PRN Reason Stop Dose Admin Acetaminophen 650 mg 08/21/24 23:37 Acetaminophen 325 Mg Tablet PO 09/20/24 23:36 Q4HR PRN PAIN SCALE 1-3 (mild Acetaminophen 650 mg 08/21/24 23:37 Acetaminophen Supp 650 Mg Supp NM 09/20/24 23:36 Q4HR PRN PAIN SCALE 1-3 (mild Acetylcysteine 3 ml 08/26/24 15:00 08/27/24 06:57 Acetylcysteine Rt Jing 10% 4 Ml Nebu INH 09/25/24 14:59 3 ml Q8HRRT KENNY Administration Al Hydrox/Mg Hydrox/Simethicone 30 ml 08/22/24 00:31 Mg Hyd/Al Hyd/Stephy (Maalox Reg) Susp 30 Ml Udc PO 09/20/24 23:36 Q4HR PRN Heartburn or Upset Stomach Albuterol 2.5 mg 08/26/24 15:00 08/27/24 06:58 Albuterol Rt 2.5 Mg/0.5 Ml Nebu INH 09/25/24 14:59 2.5 mg Q8HRRT KENNY Administration Amiodarone HCl 200 mg 08/24/24 15:00 08/27/24 09:03 Amiodarone Hcl 200 Mg Tablet PO 09/23/24 14:59 200 mg QDAY KENNY Administration Citric Acid/Sodium Citrate 30 ml 08/24/24 21:00 08/27/24 09:04 Citric Acid/Sodium Citr 15 Ml Udc (Bicitra) PO 09/23/24 20:59 30 ml BID KENNY Administration Dextrose 25 ml 08/22/24 04:20 08/22/24 11:43 Dextrose 50%-Water Inj 50 Ml Syringe IV 09/21/24 04:19 25 ml Q15MIN PRN Administration BG 50-70 responsive npo pt Dextrose 50 ml 08/22/24 04:20 Dextrose 50%-Water Inj 50 Ml Syringe IV 09/21/24 04:19 Q15MIN PRN BG <50 OR BG <70 & pt unresponsive Epoetin Jens 10,000 unit 08/27/24 14:00 Epoetin Jens-Epbx Inj 10,000 Unit/Ml Vial (Esrd) SC 08/27/24 14:01 X1 ONE Ferrous Sulfate 325 mg 08/24/24 08:30 08/26/24 08:21 Ferrous Sulf 325 Mg Tablet PO 09/23/24 08:29 325 mg QOD [facility] Administration Heparin Sodium (Porcine) 5,000 unit 08/22/24 09:00 08/25/24 21:00 Heparin Sod Inj 5000 Unit/Ml Vial SC 09/05/24 08:59 5,000 unit BID KENNY Administration Heparin Sodium (Porcine) 3,000 unit 08/22/24 05:34 08/25/24 22:51 Heparin Sod Inj 1000 Unit/Ml Vial 10 Ml INDWELLCAT 09/05/24 05:33 3,000 unit PRN PRN Administration DIALYSIS Albumin Human 25 gm in 100 mls @ 100 mls/min 08/22/24 05:34 Albuminar-25 Ivpb IV PRN PRN DIALYSIS Ceftriaxone Sodium/Dextrose 50 mls @ 100 mls/hr 08/27/24 09:00 08/27/24 09:04 Rocephin/D5w 1gm Iv Premix IV 09/01/24 08:59 100 mls/hr QDAY [facility] Administration Insulin Human Lispro 0 unit 08/26/24 06:00 08/27/24 12:11 Insulin Lispro (Admelog) 1 Unit/0.01 Ml Unit SC 09/25/24 05:59 3 unit Q6HR [facility] Administration Protocol Magnesium Hydroxide 30 ml 08/21/24 23:37 Milk Of Magnesia Susp 30 Ml Udc PO 09/20/24 23:36 QDAY PRN CONSTIPATION Midodrine 10 mg 08/27/24 07:12 Midodrine 5 Mg Tablet PO 09/25/24 21:59 TID [facility] Pharmacy Consult 1 each 08/23/24 08:21 Pharmacy To Consult Patient XX 09/22/24 08:20 PRN PRN Starting 24Hr Continuous/Intermittent Dialysis Sodium Chloride 3 ml 08/22/24 14:07 08/25/24 15:03 Sodium Chloride Rt Jing 0.9% 3 Ml Nebu INH 09/21/24 14:06 3 ml PRN PRN Administration JAXON Delaney Mr. Galdamez is a 64-year-old male with a past medical history of hypertension, hyperlipidemia, CKD stage IIIb, diabetes, bilateral BKA's, A-fib, CAD status post stent, HFrEF with ejection fraction 10 to 15% who presented to the ED on 08/21/2024 from [facility] with altered mental status and generalized weakness. #Acute blood loss anemia #Iron deficiency anemia -Morning labs Hgb 6.6 and 1 unit transfused -source of bleeding is yet to be determined, upper vs. lower GI, Pt also developed ESRD could be due to decrease erythropoitin -Iron panel: Iron 42, TIBC 235, Iron sat 17 and unsat Iron binding 193 -FOBT ordered -Will consider GI consult if FOBT is positive. #Cardiogenic shock #symptomatic bradycardia 2/2 to hyperkalemia #HFrEF (10-15%) -On admission pt was found to have bradycardia with HR in 40's, atropine x2 was given in the ED -Due to hypotension with BP of 77/55 and MAP <65, pt was started on levophed and dopamine drips, eventually weaned off on 08/24 -started on midodrine 10mg Q6HR -Per cardiology- ICD not indicated in patient for following reasons: Patient has NYHA Class IV with drug-refractory CHF, reasonable expectation of survival with an acceptable functional status < 6 months -Per cardiology, patient currently not a candidate for surgical intervention -On discharge, patient will benefit from GDMT optimized with Entresto if blood pressure tolerates. -Cardio following #history of A-fib -Pt has history of a-fib and home meds include metoprolol, amiodarone and eliquis. metoprolol and eliquis -currently on hold due to bradycardia and acute blood loss anemia CHADVAS score 3 and MELDs score 17 -Pt is in sinus rhythm and will resume meds when able -resumed amiodarone Qday #New onset hemodialysis post tunneled dialysis catheter, 08/26 # Worsening JADIEL on CKD required CRRT #Lactic acidosis -improved #Hyperkalemia - resolved -creatinine on admission 6.3, GFR 9, lactic acid 5.1, potassium on admission 7.5 -During this ICU admission pt is started on CRRT -ordered -nephrology following #UTI #hematuria #pyuria -Urinalysis is positive for leukocyte esterace, urine rbc 5180, urine wbc 1928 -urine culture show no growth -Pt is started on ceftriaoxone #insulin dependent Type 2 diabetes, uncontrolled #Hx of osteomylitis s/p bialteraly BKA -A1c 10.2 -Pt home medications include glargine 15 units BID -insulin sliding scale started -hypoglycemic protocol in place -Pt underwent bilateral BKA due to long standing uncontrolled T2DM #Transiminitis -improving -on admission AST and ALT mildy elevated, T. bili and ALP with in normal range. -Likely secondary to shock, will continue to monitor as shock has now resolved. Health Maintenance Disposition: telemetry DVT Prophylaxis: Heparin 5000 units SC Q12 hrs GI Prophylaxis: not indicated Diet: regular diet plus ensure Lines: Peripheral lines Code status: DNR Assessment and plan discussed with my senior resident Dr. Neville & attending physician Dr. Matthew Bernal (PGY-1)- Internal medicine resident Attending Provider Attestation/Addendum I have discussed and was present for the essential components of the history, physical examination, diagnosis, and treatment plan with the resident. I agree with the patient's care as documented by the resident and amended herein by me. Dann Castro DO. Patient seen and evaluated this AM. No acute events overnight, SBP labile from the 80s to 120s. Patient afebrile overnight. SpO2 100% on room air, minimal urine output, 3 BMs recorded. Echocardiogram demonstrating ischemic cardiomyopathy, EF 40%. All cultures negative thus far. CBC demonstrating a improvement in hemoglobin to 8 today, BUN 36, creatinine uptrend to 3. Fecal occult negative. TDC placed, will continue the patient on ceftriaxone for now for suspected UTI despite urine cultures being negative which was ordered after antibiotics were started. Will also consider GDMT as the patient further improves. Cardiology and nephrology consulted, appreciate further recommendations. Although this document has been carefully reviewed, there may still be some phonetic and other typographical errors. These errors are purely grammatical due to imperfections in the software program and should not be construed in any way to compromise the substance of the patient's medical care during this visit.
--- NOTE | 2024-08-27 14:15 | PC.NURSE ---
Patient transported to dialysis via bed per ronny Edgar tech. Patient awake, alert and oriented with no signs of acute distress.
--- NOTE | 2024-08-27 15:22 | PD.RESPRO ---
Documentation for date of: 08/27/24 Subjective Subjective Interval history: Mr. Galdamez is a 64-year-old male with significant past medical history of hypertension, insulin-dependent diabetes mellitus, CAD s/p PCI, HFrEF [EF 10 to 15%], CKD stage III, bilateral below-knee amputations, atrial fibrillation living in long-term facility was brought to the hospital with chief complaints of worsening mentation, shortness of breath and generalized weakness for the past 2 days. Patient was noted to have heart rate dropped to 40s during transit time in the ambulance for which patient was externally paced and 2 doses of atropine was given without response. In the ED, patient was found to have heart rate of 40 with blood pressure of 80/45 mmHg for which cardiology was consulted for suspected AV block. Per land planner, there is no concern for AV block and patient was found to have junctional escape rhythm with underlying atrial fibrillation and recommended to start on Levophed and low-dose dopamine. Patient was admitted to ICU for further care. Also noted patient had decreased p.o. intake 2 days before the day of admission and abdominal discomfort. ED Course: -Initial vitals were blood pressure 111/58 mmHg, SpO2 79% with 15 L oxygen -Labs significant for Hb 8.3, potassium 7.5, bicarb 14, anion gap 19, BUN 85, creatinine 6.2, lactate 7. Urine analysis showed 5000 RBC and 2000 WBC. -Head CT was negative for acute hemorrhage and infarct. -Patient was admitted for shock requiring vasopressors Nephrology was consulted for acute on chronic kidney injury. 08/26/2024 Patient was seen and examined bedside in the telemetry. Patient denies any other complaints. No acute overnight events. Patient is still oliguric. Vitals are stable. Labs showed hemoglobin 6.6, BUN 18, creatinine 2.2 Patient received HD yesterday. Patient is scheduled for tunneled dialysis catheter tomorrow as his renal functions are not improving Patient may require dialysis sessions for few more weeks till the kidney functions come back to its baseline. Explained about his current condition to him and his family at the bedside Recommended to remove the Prather catheter and monitor urine output 08/27/2024 Patient is seen and examined bedside No acute overnight events. Denies any other complaints Still oliguric. Labs showed uptrending Creatinine. will continue 2 HD sessions/ week till the renal functions come back to his normal baseline Exam Vital Signs Temp Pulse Resp BP Pulse Ox O2 Del Method O2 Flow Rate 98.2 F 64 18 100/66 98 Room Air 2 08/27/24 14:03 08/27/24 15:15 08/27/24 14:03 08/27/24 15:15 08/27/24 14:03 08/27/24 12:00 08/26/24 14:46 Narrative Exam General: Awake. Lying comfortably on the bed HEENT: Normocephalic, atraumatic, mucous membranes moist. Heart: Regular rate and rhythm, no murmurs. Lungs: Clear to auscultation with no wheezing or crackles. Abdomen: Soft, nondistended, nontender, positive bowel sounds. ?No guarding or rebound tenderness. Neurologic: Alert and oriented x3, no gross neurological deficit, and patient able to move all 4 extremities. Extremities: No edema. 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 B/L BKA Skin: No rash or ecchymoses. Objective Labs 08/28/24 05:28 08/28/24 05:28 Labs: Laboratory Results - last 24 hr 08/27/24 08/27/24 03:19 05:02 WBC 7.3 RBC 3.07 L Hgb 8.3 L Hct 25.4 L MCV 83 MCH 27.0 MCHC 32.7 RDW Std Deviation 58.3 H Plt Count 128 L Neut % (Auto) 72 Lymph % (Auto) 14 [place] % (Auto) 10 Eos % (Auto) 3 Baso % (Auto) 0 Neut # (Auto) 5.3 Lymph # (Auto) 1.0 [place] # (Auto) 0.8 Eos # (Auto) 0.2 Baso # (Auto) 0.0 Immature Gran # (Auto) 0.04 H Absolute Nucleated RBC 0.00 Immature Gran % 1 H Nucleated RBC % 0 PT 10.9 INR 1.0 Sodium 138 Potassium 3.4 Chloride 101 Carbon Dioxide 28.3 Anion Gap 9 BUN 30 H Creatinine 3.0 H D Estim Creat Clear Calc 16.9 L eGFR 22 L BUN/Creatinine Ratio 10 L Glucose 71 L D Calculated Osmolality 279 Calcium 8.3 Corrected Calcium 9.1 Phosphorus 1.5 L Magnesium 2.0 Total Bilirubin 0.3 AST 15 ALT 41 Alkaline Phosphatase 72 Total Protein 5.5 L Albumin 3.0 L Globulin 2.5 Albumin/Globulin Ratio 1.2 Stool Occult Blood Negative ABG Interpretation ABG results: 08/21/24 08/21/24 08/22/24 20:24 23:24 04:35 ABG pH 7.26 L ABG pCO2 31 L ABG pO2 92 ABG HCO3 14 L ABG O2 Saturation 97 ABG Base Excess -12 L VBG pH 7.32 L 7.22 L VBG pCO2 30 L 35 L VBG pO2 66 H 85 H VBG Base Excess -10 L -12 L 08/24/24 08:40 ABG pH ABG pCO2 ABG pO2 ABG HCO3 ABG O2 Saturation ABG Base Excess VBG pH 7.36 VBG pCO2 31 L VBG pO2 80 H VBG Base Excess -8 L Quality Measures Quality Measures none Advance care planning discussed with:: patient and spouse Assessment & Plan Assessment Current Active Medications: Generic Name Dose Route Start Last Admin Trade Name Freq PRN Reason Stop Dose Admin Acetaminophen 650 mg 08/21/24 23:37 Acetaminophen 325 Mg Tablet PO 09/20/24 23:36 Q4HR PRN PAIN SCALE 1-3 (mild Acetaminophen 650 mg 08/21/24 23:37 Acetaminophen Supp 650 Mg Supp RI 09/20/24 23:36 Q4HR PRN PAIN SCALE 1-3 (mild Acetylcysteine 3 ml 08/26/24 15:00 08/27/24 14:44 Acetylcysteine Rt Jing 10% 4 Ml Nebu INH 09/25/24 14:59 Not Given Q8HRRT KENNY Al Hydrox/Mg Hydrox/Simethicone 30 ml 08/22/24 00:31 Mg Hyd/Al Hyd/Stephy (Maalox Reg) Susp 30 Ml Udc PO 09/20/24 23:36 Q4HR PRN Heartburn or Upset Stomach Albuterol 2.5 mg 08/26/24 15:00 08/27/24 14:45 Albuterol Rt 2.5 Mg/0.5 Ml Nebu INH 09/25/24 14:59 Not Given Q8HRRT KENNY Amiodarone HCl 200 mg 08/24/24 15:00 08/27/24 09:03 Amiodarone Hcl 200 Mg Tablet PO 09/23/24 14:59 200 mg QDAY KENNY Administration Citric Acid/Sodium Citrate 30 ml 08/24/24 21:00 08/27/24 09:04 Citric Acid/Sodium Citr 15 Ml Udc (Bicitra) PO 09/23/24 20:59 30 ml BID KENNY Administration Dextrose 25 ml 08/22/24 04:20 08/22/24 11:43 Dextrose 50%-Water Inj 50 Ml Syringe IV 09/21/24 04:19 25 ml Q15MIN PRN Administration BG 50-70 responsive npo pt Dextrose 50 ml 08/22/24 04:20 Dextrose 50%-Water Inj 50 Ml Syringe IV 09/21/24 04:19 Q15MIN PRN BG <50 OR BG <70 & pt unresponsive Ferrous Sulfate 325 mg 08/24/24 08:30 08/26/24 08:21 Ferrous Sulf 325 Mg Tablet PO 09/23/24 08:29 325 mg QOD KENNY Administration Heparin Sodium (Porcine) 5,000 unit 08/22/24 09:00 08/25/24 21:00 Heparin Sod Inj 5000 Unit/Ml Vial SC 09/05/24 08:59 5,000 unit BID KENNY Administration Heparin Sodium (Porcine) 3,000 unit 08/22/24 05:34 08/25/24 22:51 Heparin Sod Inj 1000 Unit/Ml Vial 10 Ml INDWELLCAT 09/05/24 05:33 3,000 unit PRN PRN Administration DIALYSIS Albumin Human 25 gm in 100 mls @ 100 mls/min 08/22/24 05:34 Albuminar-25 Ivpb IV PRN PRN DIALYSIS Ceftriaxone Sodium/Dextrose 50 mls @ 100 mls/hr 08/27/24 09:00 08/27/24 09:04 Rocephin/D5w 1gm Iv Premix IV 09/01/24 08:59 100 mls/hr QDAY KENNY Administration Insulin Human Lispro 0 unit 08/26/24 06:00 08/27/24 12:11 Insulin Lispro (Admelog) 1 Unit/0.01 Ml Unit SC 09/25/24 05:59 3 unit Q6HR KENNY Administration Protocol Magnesium Hydroxide 30 ml 08/21/24 23:37 Milk Of Magnesia Susp 30 Ml Udc PO 09/20/24 23:36 QDAY PRN CONSTIPATION Midodrine 10 mg 08/27/24 07:12 08/27/24 13:50 Midodrine 5 Mg Tablet PO 09/25/24 21:59 10 mg TID KENNY Administration Pharmacy Consult 1 each 08/23/24 08:21 Pharmacy To Consult Patient XX 09/22/24 08:20 PRN PRN Starting 24Hr Continuous/Intermittent Dialysis Sodium Chloride 3 ml 08/22/24 14:07 08/25/24 15:03 Sodium Chloride Rt Jing 0.9% 3 Ml Nebu INH 09/21/24 14:06 3 ml PRN PRN Administration SOLN Plan A 64-year-old male with significant past medical history of hypertension, insulin-dependent diabetes mellitus, CAD s/p PCI, HFrEF [EF 10 to 15%], CKD stage III, bilateral below-knee amputations, atrial fibrillation living in long-term facility was brought to the hospital with chief complaints of worsening mentation, shortness of breath and generalized weakness for the past 2 days. # Acute on chronic kidney disease, stage IIIb Likely prerenal versus ATN in the setting of shock -Patient presented to the hospital with the complaints of shortness of breath worsening mentation and per patient's patient had abdominal pain and foul-smelling urine. -Baseline creatinine as of 07/2024 is 2.4 -On the day of admission, 08/21/2024, creatinine is 6.3 > 08/25, BUN 25, Cr 2.8 1 >08/26, BUN 18, Cr 2 -Urine analysis showed turbid urine with 2+ proteinuria, 3+ blood, 5180 RBC, 1928 WBC Plan -Patient got CRRT on 08/22 and one more session done on 08/23,HD on 08/26, 08/27 -will continue dialysis 2 times per week till patient renal functions come back to his normal baseline -Monitor renal functions and avoid nephrotoxic medications -Continue antibiotics # Hyperkalemia, resolved # Hyperphosphatemia, resolved # Lactic acidosis, resolved -Found to have potassium of 7.5 at the time of admission -Since 08/23/2024, Electrolytes are within normal limits #Acute encephalopathy 2/2 UTI #Chronic right parietal stroke #Shock #Acute hypoxic respiratory failure. #Complicated UTI #Chronic anemia #IDDM #Elevated LFT's To be treated per primary team Thank you for allowing us to involved in the care of the patient Patient plan of care was discussed with the attending physician, Dr. Marian Gates, PGY1 Attending Provider Attestation/Addendum Patient seen and examined with resident physician Dr. Pollard. Note reviewed, agree with findings and recommendations. Patient with sepsis and JADIEL. On broad-spectrum antibiotics. Patient received 2 conventional dialysis treatments and 2 CRRT treatment days. No urine output. I had a long conversation with the patient and he agreed for outpatient dialysis-twice weekly. Outpatient dialysis to be arranged. Hep panel and PPD ordered. Status post PermCath. patient currently seen on dialysis. Tolerating dialysis without any problems. Hemodialysis for 3 hours, 2K, ultrafiltration 2-3 L, Epogen 6000, no heparin ordered. Plan of care discussed with the dialysis nurse. Please see dialysis flowsheet for further details.
[2024-08-27] MEDS: EPOETIN ALFA-EPBX INJ 10,000 UNIT/ML VIAL (ESRD) 10000 UNIT SC (17:04)
--- NOTE | 2024-08-27 17:20 | ESPR_ITS ---
<Statement entered by Janee Velazquez MD - 08/31/24 13:36> I personally examined the patient with resident physician PGY 3 Dr. Raman agree with the treatment plan recommendation patient clinically improving ejection fraction is around 40% and continue the medical management including low-dose beta-yesika as tolerated amiodarone for arrhythmias will monitor cardiac status closely. Documentation for date of: 08/27/24 Subjective Subjective Interval history: Overnight events, lab/imaging results, and notes reviewed. Patient examined bedside during dialysis session, reports feeling well without any complaints today. Vitals reviewed, BP steady around ~100s/70s today, midodrine regimen reduced yesterday and advise continued dose. Patient and family updated bedside regarding improvement in EF and prognosis, will not pursue ICD at this time as EF is improving to medications. Exam Vital Signs Temp Pulse Resp BP Pulse Ox O2 Del Method O2 Flow Rate 97.8 F 64 18 107/72 98 Room Air 2 08/27/24 17:01 08/27/24 17:15 08/27/24 17:01 08/27/24 17:15 08/27/24 17:01 08/27/24 12:00 08/26/24 14:46 Narrative Exam General: AOx3, cooperative, in no acute distress HEENT: Atraumatic/normocephalic, RUPERT Heart: RRR, S1 and S2 without clicks or murmurs Lungs: Clear on auscultation bilaterally, no difficulty breathing Abdomen: Soft, nontender. Bowel sounds present on all quadrants Skin: Bilateral lower extremity BKAs, no edema or cyanosis noted. Right hand amputations digits 3-5. Neuro: No focal neurological deficits noted on appearance Objective Labs 08/27/24 05:02 08/27/24 05:02 Labs: Laboratory Results - last 24 hr 08/27/24 08/27/24 03:19 05:02 WBC 7.3 RBC 3.07 L Hgb 8.3 L Hct 25.4 L MCV 83 MCH 27.0 MCHC 32.7 RDW Std Deviation 58.3 H Plt Count 128 L Neut % (Auto) 72 Lymph % (Auto) 14 [place] % (Auto) 10 Eos % (Auto) 3 Baso % (Auto) 0 Neut # (Auto) 5.3 Lymph # (Auto) 1.0 [place] # (Auto) 0.8 Eos # (Auto) 0.2 Baso # (Auto) 0.0 Immature Gran # (Auto) 0.04 H Absolute Nucleated RBC 0.00 Immature Gran % 1 H Nucleated RBC % 0 PT 10.9 INR 1.0 Sodium 138 Potassium 3.4 Chloride 101 Carbon Dioxide 28.3 Anion Gap 9 BUN 30 H Creatinine 3.0 H D Estim Creat Clear Calc 16.9 L eGFR 22 L BUN/Creatinine Ratio 10 L Glucose 71 L D Calculated Osmolality 279 Calcium 8.3 Corrected Calcium 9.1 Phosphorus 1.5 L Magnesium 2.0 Total Bilirubin 0.3 AST 15 ALT 41 Alkaline Phosphatase 72 Total Protein 5.5 L Albumin 3.0 L Globulin 2.5 Albumin/Globulin Ratio 1.2 Stool Occult Blood Negative ABG Interpretation ABG results: 08/21/24 08/21/24 08/22/24 20:24 23:24 04:35 ABG pH 7.26 L ABG pCO2 31 L ABG pO2 92 ABG HCO3 14 L ABG O2 Saturation 97 ABG Base Excess -12 L VBG pH 7.32 L 7.22 L VBG pCO2 30 L 35 L VBG pO2 66 H 85 H VBG Base Excess -10 L -12 L 08/24/24 08:40 ABG pH ABG pCO2 ABG pO2 ABG HCO3 ABG O2 Saturation ABG Base Excess VBG pH 7.36 VBG pCO2 31 L VBG pO2 80 H VBG Base Excess -8 L Quality Measures Quality Measures none Advance care planning discussed with:: patient Assessment & Plan Assessment Current Active Medications: Generic Name Dose Route Start Last Admin Trade Name Freq PRN Reason Stop Dose Admin Acetaminophen 650 mg 08/21/24 23:37 Acetaminophen 325 Mg Tablet PO 09/20/24 23:36 Q4HR PRN PAIN SCALE 1-3 (mild Acetaminophen 650 mg 08/21/24 23:37 Acetaminophen Supp 650 Mg Supp NE 09/20/24 23:36 Q4HR PRN PAIN SCALE 1-3 (mild Acetylcysteine 3 ml 08/26/24 15:00 08/27/24 14:44 Acetylcysteine Rt Jing 10% 4 Ml Nebu INH 09/25/24 14:59 Not Given Q8HRRT KENNY Al Hydrox/Mg Hydrox/Simethicone 30 ml 08/22/24 00:31 Mg Hyd/Al Hyd/Stephy (Maalox Reg) Susp 30 Ml Udc PO 09/20/24 23:36 Q4HR PRN Heartburn or Upset Stomach Albuterol 2.5 mg 08/26/24 15:00 08/27/24 14:45 Albuterol Rt 2.5 Mg/0.5 Ml Nebu INH 09/25/24 14:59 Not Given Q8HRRT KENNY Amiodarone HCl 200 mg 08/24/24 15:00 08/27/24 09:03 Amiodarone Hcl 200 Mg Tablet PO 09/23/24 14:59 200 mg QDAY KENNY Administration Citric Acid/Sodium Citrate 30 ml 08/24/24 21:00 08/27/24 09:04 Citric Acid/Sodium Citr 15 Ml Udc (Bicitra) PO 09/23/24 20:59 30 ml BID KENNY Administration Dextrose 25 ml 08/22/24 04:20 08/22/24 11:43 Dextrose 50%-Water Inj 50 Ml Syringe IV 09/21/24 04:19 25 ml Q15MIN PRN Administration BG 50-70 responsive npo pt Dextrose 50 ml 08/22/24 04:20 Dextrose 50%-Water Inj 50 Ml Syringe IV 09/21/24 04:19 Q15MIN PRN BG <50 OR BG <70 & pt unresponsive Ferrous Sulfate 325 mg 08/24/24 08:30 08/26/24 08:21 Ferrous Sulf 325 Mg Tablet PO 09/23/24 08:29 325 mg QOD KENNY Administration Heparin Sodium (Porcine) 5,000 unit 08/22/24 09:00 08/25/24 21:00 Heparin Sod Inj 5000 Unit/Ml Vial SC 09/05/24 08:59 5,000 unit BID KENNY Administration Heparin Sodium (Porcine) 3,500 unit 08/27/24 15:36 Heparin Sod Inj 1000 Unit/Ml Vial 10 Ml INDWELLCAT 09/10/24 15:35 PRN PRN DIALYSIS Albumin Human 25 gm in 100 mls @ 100 mls/min 08/22/24 05:34 Albuminar-25 Ivpb IV PRN PRN DIALYSIS Ceftriaxone Sodium/Dextrose 50 mls @ 100 mls/hr 08/27/24 09:00 08/27/24 09:04 Rocephin/D5w 1gm Iv Premix IV 09/01/24 08:59 100 mls/hr QDAY KENNY Administration Insulin Human Lispro 0 unit 08/26/24 06:00 08/27/24 12:11 Insulin Lispro (Admelog) 1 Unit/0.01 Ml Unit SC 09/25/24 05:59 3 unit Q6HR [facility] Administration Protocol Magnesium Hydroxide 30 ml 08/21/24 23:37 Milk Of Magnesia Susp 30 Ml Udc PO 09/20/24 23:36 QDAY PRN CONSTIPATION Midodrine 10 mg 08/27/24 07:12 08/27/24 13:50 Midodrine 5 Mg Tablet PO 09/25/24 21:59 10 mg TID KENNY Administration Pharmacy Consult 1 each 08/23/24 08:21 Pharmacy To Consult Patient XX 09/22/24 08:20 PRN PRN Starting 24Hr Continuous/Intermittent Dialysis Sodium Chloride 3 ml 08/22/24 14:07 08/25/24 15:03 Sodium Chloride Rt Jing 0.9% 3 Ml Nebu INH 09/21/24 14:06 3 ml PRN PRN Administration SOLN Plan Patient is a 64-year-old male past medical history of HFrEF (EF 10-15%), ischemic cardiomyopathy, CKD IIIb, CAD s/p stents, atrial fibrillation, NSVT, hypertension, hyperlipidemia, IDDM2, and bilateral BKAs who was admitted to the ICU for cardiogenic shock and acute on chronic renal failure requiring vasopressor support and CRRT. Patient was noted to have severe bradycardia in 40s both in ED and en route to ED, given atropine x2 however bradycardia did not resolve, external pacing was initiated. Cardiology team consulted for severe bradycardia in setting of hyperkalemia 7.5. 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 Atropine x2 did not improve bradycardia, external pacing initiated. - Echo (May 2024): EF 10-15% with severe systolic dysfunction. Grade III DD with akinetic apex with severe global hypokinesis - Echo (Aug 2024): EF 40% with anteroseptal akinesis with moderate LV dysfunction. - Levophed and Dopamine started, have been weaned off - Nephrology team following, CRRT per nephrology recommendations. Nephrology team may consider dialysis if patient is agreeable, creatinine uptrended 2.8 on 08/25 - Monitor electrolytes, goal of K > 4 and Magnesium > 2 - Bradycardia likely caused by hyperkalemia - Given history of atrial fibrillation and NSVT, advise resuming amiodarone. For concerns of bradycardia, advise 200mg amiodarone qday (reduced from patient's home BID dose). Given bradycardia and hypotension concerns, agree with holding home metoprolol for now until clinical status improves - If patient continues dialysis outpatient, may consider adding spironolactone to regimen - Midodrine 10mg TID with MAP goal ~ 70. - ICD no longer considered as patient's EF has been noted to improve between May 2024 and Aug 2024. Previously was contraindicated due to NYHA Class IV with drug-refractory CHF and survival prognosis < 6 months, these reasons are no longer applicable. #JADIEL on CKD?on CRRT #Hyperkalemia #Lactic acidosis #History of osteomyelitis status post BKA - Management per primary team Patient case discussed with attending physician Dr. Marcus Raman, DO PGY-3
[2024-08-27] MEDS: HEPARIN SOD INJ 1000 UNIT/ML VIAL 10 ML 3500 UNIT INDWELLCAT (17:40)
--- NOTE | 2024-08-27 17:55 | PC.NURSE ---
Patient returned from dialysis via bed. Patient awake, alert and oriented with no signs of acute distress. at bedside.
[2024-08-28] VITALS (19 sets, daily range): BP systolic 96–116; BP diastolic 52–70; PULSE 60–81; RESP 9–99; TEMP 36.2–36.6; O2SAT 92–100; BMI 20.5
[2024-08-28 05:58] LABS: Basophils % (Auto) 0 % (0-2.5); Eosinophils # (Auto) 0.3 Thou/mm3 (0.0-0.5); Eosinophils % (Auto) 4 % (0-10); Hematocrit 27.9 % (41.0-53.0); Immature Granulocytes % (Auto) 1 % (0-0); Immature Granulocytes Auto 0.08 Thou/mm3 (0.00-0.00); Lymphocytes % (Auto) 14 % (10-50); Mean Corpuscular HGB Conc 32.3 g/dl (31.0-37.0); Mean Corpuscular Hemoglobin 26.4 pg (25.0-35.0); Mean Corpuscular Volume 82 fL (80-100); Monocytes # (Auto) 0.9 Thou/mm3 (0.0-0.8); Monocytes % (Auto) 12 % (0-12); Neutrophils # (Auto) 4.8 Thou/mm3 (1.8-7.7); Neutrophils % (Auto) 69 % (37-80); Nucleated Red Blood Cell # 0.02 Thou/mm3 (0.00-0.00); Nucleated Red Blood Cell % 0 /100 WBC (0); Platelet Count 132 Thou/mm3 (140-440); RDW Standard Deviation 57.6 fL (35.1-43.9); Red Blood Count 3.41 Miln/mm3 (4.50-5.90); White Blood Count 7.1 Thou/mm3 (3.8-10.6)
[2024-08-28 06:48] LABS: Alanine Aminotransferase 31 U/L (10-49); Albumin, Serum 2.9 gm/dL (3.4-4.8); Albumin/Globulin Ratio 1.2 (1.2-2.2); Alkaline Phosphatase 72 U/L (46-116); Anion Gap 10 (7-16); Aspartate Amino Transferase 14 U/L (0-34); BUN/Creatinine Ratio 7 Ratio (12-20); Bilirubin,Total 0.3 mg/dL (0.3-1.2); Blood Urea Nitrogen 15 mg/dL (9-23); Calcium (Corrected) 8.9 mg/dL (8.5-10.1); Chloride 100 mMol/L (98-107); Creatinine (Component) 2.1 mg/dL (0.6-1.3); Globulin 2.5 gm/dL (2.3-3.5); Glucose 123 mg/dL (74-106); Magnesium 1.9 mg/dL (1.6-2.6); Osmolality,Calculated 277 (275-295); Phosphorous 1.1 mg/dL (2.4-5.1); Potassium 3.2 mMol/L (3.4-5.1); Sodium 138 mMol/L (136-145); Total Protein 5.4 gm/dL (5.7-8.2); eGFR 34 See Note
[2024-08-28] MEDS: ALBUTEROL RT 2.5 MG/0.5 ML NEBU INH ×3 (07:53→22:30)
[2024-08-28] MEDS: ACETYLCYSTEINE RT SOL 10% 4 ML NEBU 3 ML INH ×3 (07:54→22:30)
--- NOTE | 2024-08-28 08:38 | PC.SS ---
SS follow up note; SS contacted [facility] in [place] to check status on chair time, Tiffany reported that at the time Insurance verification was still pending.
[2024-08-28] MEDS: POT PHOS 15 mMol in NS 250 ML 15 MMOL/250 ML BAG 62.5 MMOL IV ×2 (09:11→13:48)
[2024-08-28] MEDS: cefTRIAXone/D5w 1gm IV premix 50 ML IV (09:12)
[2024-08-28] MEDS: CITRIC ACID/SODIUM CITR 15 ML UDC (BICITRA) 30 ML PO ×2 (09:14→20:07)
[2024-08-28] MEDS: FERROUS SULF 325 MG TABLET PO (09:14)
[2024-08-28] MEDS: AMIODARONE HCL 200 MG TABLET PO (09:14)
[2024-08-28] MEDS: INSULIN LISPRO (AdmeLOG) 1 UNIT/0.01 ML UNIT SC ×3 (11:41→23:50)
--- NOTE | 2024-08-28 13:42 | PC.SS ---
SS follow up note; SS contacted Tiffany in [place] and she informed SS that insurance verification was still pending at the time.
[2024-08-28] MEDS: MIDODRINE 5 MG TABLET 10 MG PO (13:51)
--- NOTE | 2024-08-28 14:16 | ESPR_ITS ---
Documentation for date of: 08/28/24 Subjective Subjective Interval history: Mr. Galdamez is a 64-year-old male with significant past medical history of hypertension, insulin-dependent diabetes mellitus, CAD s/p PCI, HFrEF [EF 10 to 15%], CKD stage III, bilateral below-knee amputations, atrial fibrillation living in [facility] facility was brought to the hospital with chief complaints of worsening mentation, shortness of breath and generalized weakness for the past 2 days. Patient was noted to have heart rate dropped to 40s during transit time in the ambulance for which patient was externally paced and 2 doses of atropine was given without response. In the ED, patient was found to have heart rate of 40 with blood pressure of 80/45 mmHg for which cardiology was consulted for suspected AV block. Per machine spring former, there is no concern for AV block and patient was found to have junctional escape rhythm with underlying atrial fibrillation and recommended to start on Levophed and low-dose dopamine. Patient was admitted to ICU for further care. Also noted patient had decreased p.o. intake 2 days before the day of admission and abdominal discomfort. ED Course: -Initial vitals were blood pressure 111/58 mmHg, SpO2 79% with 15 L oxygen -Labs significant for Hb 8.3, potassium 7.5, bicarb 14, anion gap 19, BUN 85, creatinine 6.2, lactate 7. Urine analysis showed 5000 RBC and 2000 WBC. -Head CT was negative for acute hemorrhage and infarct. -Patient was admitted for shock requiring vasopressors Nephrology was consulted for acute on chronic kidney injury. 08/26/2024 Patient was seen and examined bedside in the telemetry. Patient denies any other complaints. No acute overnight events. Patient is still oliguric. Vitals are stable. Labs showed hemoglobin 6.6, BUN 18, creatinine 2.2 Patient received HD yesterday. Patient is scheduled for tunneled dialysis catheter tomorrow as his renal functions are not improving Patient may require dialysis sessions for few more weeks till the kidney functions come back to its baseline. Explained about his current condition to him and his family at the bedside Recommended to remove the [place] catheter and monitor urine output 08/27/2024 Patient is seen and examined bedside No acute overnight events. Denies any other complaints Still oliguric. Labs showed uptrending Creatinine. will continue 2 HD sessions/ week till the renal functions come back to his normal baseline 08/28/2024 The patient is seen and examined by bedside No acute overnight events. Denies any other complaints. Vitals all stable. Patient is still oliguric. Labs showed sodium 138, potassium 3.2, creatinine 2.1, BUN 15 Recommended to continue dialysis 2 times in a week till patient produces adequate urine output. Exam Vital Signs Temp Pulse Resp BP Pulse Ox O2 Del Method O2 Flow Rate 97.2 F 72 18 97/57 L 95 Nasal Cannula 2 08/28/24 08:00 08/28/24 13:51 08/28/24 08:00 08/28/24 13:51 08/28/24 08:00 08/28/24 08:00 08/28/24 08:00 Narrative Exam General: Awake. Lying comfortably on the bed HEENT: Normocephalic, atraumatic, mucous membranes moist. Heart: Regular rate and rhythm, no murmurs. Lungs: Clear to auscultation with no wheezing or crackles. Abdomen: Soft, nondistended, nontender, positive bowel sounds. ?No guarding or rebound tenderness. Neurologic: Alert and oriented x3, no gross neurological deficit, and patient able to move all 4 extremities. Extremities: No edema. 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 B/L BKA Skin: No rash or ecchymoses. Objective Labs 08/28/24 05:28 08/28/24 05:28 Labs: Laboratory Results - last 24 hr 08/28/24 05:28 WBC 7.1 RBC 3.41 L Hgb 9.0 L Hct 27.9 L MCV 82 MCH 26.4 MCHC 32.3 RDW Std Deviation 57.6 H Plt Count 132 L Neut % (Auto) 69 Lymph % (Auto) 14 [place] % (Auto) 12 Eos % (Auto) 4 Baso % (Auto) 0 Neut # (Auto) 4.8 Lymph # (Auto) 1.0 [place] # (Auto) 0.9 H Eos # (Auto) 0.3 Baso # (Auto) 0.0 Immature Gran # (Auto) 0.08 H Absolute Nucleated RBC 0.02 H Immature Gran % 1 H Nucleated RBC % 0 Sodium 138 Potassium 3.2 L Chloride 100 Carbon Dioxide 28.0 Anion Gap 10 BUN 15 Creatinine 2.1 H D Estim Creat Clear Calc 29.0 L eGFR 34 L BUN/Creatinine Ratio 7 L Glucose 123 H D Calculated Osmolality 277 Calcium 8.0 L Corrected Calcium 8.9 Phosphorus 1.1 L Magnesium 1.9 Total Bilirubin 0.3 AST 14 ALT 31 Alkaline Phosphatase 72 Total Protein 5.4 L Albumin 2.9 L Globulin 2.5 Albumin/Globulin Ratio 1.2 ABG Interpretation ABG results: 08/21/24 08/21/24 08/22/24 20:24 23:24 04:35 ABG pH 7.26 L ABG pCO2 31 L ABG pO2 92 ABG HCO3 14 L ABG O2 Saturation 97 ABG Base Excess -12 L VBG pH 7.32 L 7.22 L VBG pCO2 30 L 35 L VBG pO2 66 H 85 H VBG Base Excess -10 L -12 L 08/24/24 08:40 ABG pH ABG pCO2 ABG pO2 ABG HCO3 ABG O2 Saturation ABG Base Excess VBG pH 7.36 VBG pCO2 31 L VBG pO2 80 H VBG Base Excess -8 L Quality Measures Quality Measures none Advance care planning discussed with:: patient Assessment & Plan Assessment Current Active Medications: Generic Name Dose Route Start Last Admin Trade Name Freq PRN Reason Stop Dose Admin Acetaminophen 650 mg 08/21/24 23:37 Acetaminophen 325 Mg Tablet PO 09/20/24 23:36 Q4HR PRN PAIN SCALE 1-3 (mild Acetaminophen 650 mg 08/21/24 23:37 Acetaminophen Supp 650 Mg Supp MD 09/20/24 23:36 Q4HR PRN PAIN SCALE 1-3 (mild Acetylcysteine 3 ml 08/26/24 15:00 08/28/24 07:54 Acetylcysteine Rt Jing 10% 4 Ml Nebu INH 09/25/24 14:59 3 ml Q8HRRT KENNY Administration Al Hydrox/Mg Hydrox/Simethicone 30 ml 08/22/24 00:31 Mg Hyd/Al Hyd/Stephy (Maalox Reg) Susp 30 Ml Udc PO 09/20/24 23:36 Q4HR PRN Heartburn or Upset Stomach Albuterol 2.5 mg 08/26/24 15:00 08/28/24 07:53 Albuterol Rt 2.5 Mg/0.5 Ml Nebu INH 09/25/24 14:59 2.5 mg Q8HRRT KENNY Administration Amiodarone HCl 200 mg 08/24/24 15:00 08/28/24 09:14 Amiodarone Hcl 200 Mg Tablet PO 09/23/24 14:59 200 mg QDAY KENNY Administration Carvedilol 3.125 mg 08/28/24 17:30 Carvedilol 3.125 Mg Tablet PO 09/27/24 17:29 BIDWM KENNY Citric Acid/Sodium Citrate 30 ml 08/24/24 21:00 08/28/24 09:14 Citric Acid/Sodium Citr 15 Ml Udc (Bicitra) PO 09/23/24 20:59 30 ml BID KENNY Administration Dextrose 25 ml 08/22/24 04:20 08/22/24 11:43 Dextrose 50%-Water Inj 50 Ml Syringe IV 09/21/24 04:19 25 ml Q15MIN PRN Administration BG 50-70 responsive npo pt Dextrose 50 ml 08/22/24 04:20 Dextrose 50%-Water Inj 50 Ml Syringe IV 09/21/24 04:19 Q15MIN PRN BG <50 OR BG <70 & pt unresponsive Ferrous Sulfate 325 mg 08/24/24 08:30 08/28/24 09:14 Ferrous Sulf 325 Mg Tablet PO 09/23/24 08:29 325 mg QOD KENNY Administration Heparin Sodium (Porcine) 3,500 unit 08/27/24 15:36 08/27/24 17:40 Heparin Sod Inj 1000 Unit/Ml Vial 10 Ml INDWELLCAT 09/10/24 15:35 3,500 unit PRN PRN Administration DIALYSIS Albumin Human 25 gm in 100 mls @ 100 mls/min 08/22/24 05:34 Albuminar-25 Ivpb IV PRN PRN DIALYSIS Ceftriaxone Sodium/Dextrose 50 mls @ 100 mls/hr 08/27/24 09:00 08/28/24 09:12 Rocephin/D5w 1gm Iv Premix IV 08/29/24 08:59 100 mls/hr QDAY KENNY Administration Potassium Phosphate 15 mmol in 250 mls @ 62.5 mls/hr 08/28/24 08:08 08/28/24 13:48 Pot Phos 15 Mmol In Ns 250 Ml IV 08/28/24 16:07 62.5 mls/hr Q4H KENNY Administration Insulin Human Lispro 0 unit 08/26/24 06:00 08/28/24 11:41 Insulin Lispro (Admelog) 1 Unit/0.01 Ml Unit SC 09/25/24 05:59 5 unit Q6HR KENNY Administration Protocol Magnesium Hydroxide 30 ml 08/21/24 23:37 Milk Of Magnesia Susp 30 Ml Udc PO 09/20/24 23:36 QDAY PRN CONSTIPATION Midodrine 10 mg 08/27/24 07:12 08/28/24 13:51 Midodrine 5 Mg Tablet PO 09/25/24 21:59 10 mg TID KENNY Administration Pharmacy Consult 1 each 08/23/24 08:21 Pharmacy To Consult Patient XX 09/22/24 08:20 PRN PRN Starting 24Hr Continuous/Intermittent Dialysis Sodium Chloride 3 ml 08/22/24 14:07 08/25/24 15:03 Sodium Chloride Rt Jing 0.9% 3 Ml Nebu INH 09/21/24 14:06 3 ml PRN PRN Administration SOLN Plan A 64-year-old male with significant past medical history of hypertension, insulin-dependent diabetes mellitus, CAD s/p PCI, HFrEF [EF 10 to 15%], CKD stage III, bilateral below-knee amputations, atrial fibrillation living in [facility] facility was brought to the hospital with chief complaints of worsening mentation, shortness of breath and generalized weakness for the past 2 days. # Acute on chronic kidney disease, stage IIIb Likely prerenal versus ATN in the setting of shock -Patient presented to the hospital with the complaints of shortness of breath worsening mentation and per patient's patient had abdominal pain and foul- smelling urine. -Baseline creatinine as of 07/2024 is 2.4 -On the day of admission, 08/21/2024, creatinine is 6.3 > 08/25, BUN 25, Cr 2.8 1 >08/26, BUN 18, Cr 2 >08/28, BUN 15, Cr 2.1 -Urine analysis showed turbid urine with 2+ proteinuria, 3+ blood, 5180 RBC, 1928 WBC Plan -Patient got CRRT on 08/22 and one more session done on 08/23,HD on 08/26, 08/27 -will continue dialysis 2 times per week till patient renal functions come back to his normal baseline and makes adequate amount of urine output -Monitor renal functions and avoid nephrotoxic medications -Continue antibiotics #Hypokalemia -On 08/28/2024, potassium is 3.2 -Patient received IV potassium -Recommend to monitor electrolytes and replete accordingly. # Hyperkalemia, resolved # Hyperphosphatemia, resolved # Lactic acidosis, resolved -Found to have potassium of 7.5 at the time of admission -Since 08/23/2024, Electrolytes are within normal limits #Acute encephalopathy 2/2 UTI #Chronic right parietal stroke #Shock #Acute hypoxic respiratory failure. #Complicated UTI #Chronic anemia #IDDM #Elevated LFT's To be treated per primary team Thank you for allowing us to involved in the care of the patient Patient plan of care was discussed with the attending physician, Dr. Marian Gates, PGY1 Attending Provider Attestation/Addendum Patient seen and examined with resident physician Dr. Pollard. Note reviewed, agree with findings and recommendations. Patient with sepsis and JADIEL. On broad-spectrum antibiotics. Patient received 2 conventional dialysis treatments and 2 CRRT treatment days. No urine output. I had a long conversation with the patient and he agreed for outpatient dialysis-twice weekly. Outpatient dialysis to be arranged. Hep panel and PPD negative Status post PermCath. Next dialysis scheduled for tomorrow.
--- NOTE | 2024-08-28 15:03 | ESPR_ITS ---
<Statement entered by Janee Velazquez MD - 08/31/24 13:37> I personally examined the patient with resident physician PGY 3 Dr. Raman agree with the treatment plan recommendation patient clinically improving ejection fraction is around 40% and continue the medical management including low-dose beta-yesika as tolerated amiodarone for arrhythmias will monitor cardiac status closely. Documentation for date of: 08/28/24 Subjective Subjective Interval history: Overnight events, lab/imaging results, and notes reviewed. Patient examined bedside, continues to report feeling well without any complaints today. Vitals reviewed, BP ~110/60 today, remains on midodrine with addition of carvedilol by primary team. Creatinine improving 2.1 from 3.0, nephrology team guiding dialysis treatments. Will advice reducing midodrine to 5mg TID if blood pressures allow, will gradually start GDMT, likely to pursue GDMT in outpatient setting. Exam Vital Signs Temp Pulse Resp BP Pulse Ox O2 Del Method O2 Flow Rate 97.2 F 72 18 97/57 L 95 Nasal Cannula 2 08/28/24 08:00 08/28/24 13:51 08/28/24 08:00 08/28/24 13:51 08/28/24 08:00 08/28/24 08:00 08/28/24 08:00 Narrative Exam General: AOx3, cooperative, in no acute distress HEENT: Atraumatic/normocephalic, RUPERT Heart: RRR, S1 and S2 without clicks or murmurs Lungs: Clear on auscultation bilaterally, no difficulty breathing Abdomen: Soft, nontender. Bowel sounds present on all quadrants Skin: Bilateral lower extremity BKAs, no edema or cyanosis noted. Right hand amputations digits 3-5. Neuro: No focal neurological deficits noted on appearance Objective Labs 08/28/24 05:28 08/28/24 05:28 Labs: Laboratory Results - last 24 hr 08/28/24 05:28 WBC 7.1 RBC 3.41 L Hgb 9.0 L Hct 27.9 L MCV 82 MCH 26.4 MCHC 32.3 RDW Std Deviation 57.6 H Plt Count 132 L Neut % (Auto) 69 Lymph % (Auto) 14 [place] % (Auto) 12 Eos % (Auto) 4 Baso % (Auto) 0 Neut # (Auto) 4.8 Lymph # (Auto) 1.0 [place] # (Auto) 0.9 H Eos # (Auto) 0.3 Baso # (Auto) 0.0 Immature Gran # (Auto) 0.08 H Absolute Nucleated RBC 0.02 H Immature Gran % 1 H Nucleated RBC % 0 Sodium 138 Potassium 3.2 L Chloride 100 Carbon Dioxide 28.0 Anion Gap 10 BUN 15 Creatinine 2.1 H D Estim Creat Clear Calc 29.0 L eGFR 34 L BUN/Creatinine Ratio 7 L Glucose 123 H D Calculated Osmolality 277 Calcium 8.0 L Corrected Calcium 8.9 Phosphorus 1.1 L Magnesium 1.9 Total Bilirubin 0.3 AST 14 ALT 31 Alkaline Phosphatase 72 Total Protein 5.4 L Albumin 2.9 L Globulin 2.5 Albumin/Globulin Ratio 1.2 ABG Interpretation ABG results: 08/21/24 08/21/24 08/22/24 20:24 23:24 04:35 ABG pH 7.26 L ABG pCO2 31 L ABG pO2 92 ABG HCO3 14 L ABG O2 Saturation 97 ABG Base Excess -12 L VBG pH 7.32 L 7.22 L VBG pCO2 30 L 35 L VBG pO2 66 H 85 H VBG Base Excess -10 L -12 L 08/24/24 08:40 ABG pH ABG pCO2 ABG pO2 ABG HCO3 ABG O2 Saturation ABG Base Excess VBG pH 7.36 VBG pCO2 31 L VBG pO2 80 H VBG Base Excess -8 L Quality Measures Quality Measures none Advance care planning discussed with:: patient Assessment & Plan Assessment Current Active Medications: Generic Name Dose Route Start Last Admin Trade Name Freq PRN Reason Stop Dose Admin Acetaminophen 650 mg 08/21/24 23:37 Acetaminophen 325 Mg Tablet PO 09/20/24 23:36 Q4HR PRN PAIN SCALE 1-3 (mild Acetaminophen 650 mg 08/21/24 23:37 Acetaminophen Supp 650 Mg Supp [place] 09/20/24 23:36 Q4HR PRN PAIN SCALE 1-3 (mild Acetylcysteine 3 ml 08/26/24 15:00 08/28/24 07:54 Acetylcysteine Rt Jing 10% 4 Ml Nebu INH 09/25/24 14:59 3 ml Q8HRRT KENNY Administration Al Hydrox/Mg Hydrox/Simethicone 30 ml 08/22/24 00:31 Mg Hyd/Al Hyd/Stephy (Maalox Reg) Susp 30 Ml Udc PO 09/20/24 23:36 Q4HR PRN Heartburn or Upset Stomach Albuterol 2.5 mg 08/26/24 15:00 08/28/24 07:53 Albuterol Rt 2.5 Mg/0.5 Ml Nebu INH 09/25/24 14:59 2.5 mg Q8HRRT KENNY Administration Amiodarone HCl 200 mg 08/24/24 15:00 08/28/24 09:14 Amiodarone Hcl 200 Mg Tablet PO 09/23/24 14:59 200 mg QDAY KENNY Administration Carvedilol 3.125 mg 08/28/24 17:30 Carvedilol 3.125 Mg Tablet PO 09/27/24 17:29 BIDWM KENNY Citric Acid/Sodium Citrate 30 ml 08/24/24 21:00 08/28/24 09:14 Citric Acid/Sodium Citr 15 Ml Udc (Bicitra) PO 09/23/24 20:59 30 ml BID KENNY Administration Dextrose 25 ml 08/22/24 04:20 08/22/24 11:43 Dextrose 50%-Water Inj 50 Ml Syringe IV 09/21/24 04:19 25 ml Q15MIN PRN Administration BG 50-70 responsive npo pt Dextrose 50 ml 08/22/24 04:20 Dextrose 50%-Water Inj 50 Ml Syringe IV 09/21/24 04:19 Q15MIN PRN BG <50 OR BG <70 & pt unresponsive Ferrous Sulfate 325 mg 08/24/24 08:30 08/28/24 09:14 Ferrous Sulf 325 Mg Tablet PO 09/23/24 08:29 325 mg QOD KENNY Administration Heparin Sodium (Porcine) 3,500 unit 08/27/24 15:36 08/27/24 17:40 Heparin Sod Inj 1000 Unit/Ml Vial 10 Ml INDWELLCAT 09/10/24 15:35 3,500 unit PRN PRN Administration DIALYSIS Albumin Human 25 gm in 100 mls @ 100 mls/min 08/22/24 05:34 Albuminar-25 Ivpb IV PRN PRN DIALYSIS Ceftriaxone Sodium/Dextrose 50 mls @ 100 mls/hr 08/27/24 09:00 08/28/24 09:12 Rocephin/D5w 1gm Iv Premix IV 08/29/24 08:59 100 mls/hr QDAY KENNY Administration Potassium Phosphate 15 mmol in 250 mls @ 62.5 mls/hr 08/28/24 08:08 08/28/24 13:48 Pot Phos 15 Mmol In Ns 250 Ml IV 08/28/24 16:07 62.5 mls/hr Q4H KENNY Administration Insulin Human Lispro 0 unit 08/26/24 06:00 08/28/24 11:41 Insulin Lispro (Admelog) 1 Unit/0.01 Ml Unit SC 09/25/24 05:59 5 unit Q6HR KENNY Administration Protocol Magnesium Hydroxide 30 ml 08/21/24 23:37 Milk Of Magnesia Susp 30 Ml Udc PO 09/20/24 23:36 QDAY PRN CONSTIPATION Midodrine 10 mg 08/27/24 07:12 08/28/24 13:51 Midodrine 5 Mg Tablet PO 09/25/24 21:59 10 mg TID KENNY Administration Pharmacy Consult 1 each 08/23/24 08:21 Pharmacy To Consult Patient XX 09/22/24 08:20 PRN PRN Starting 24Hr Continuous/Intermittent Dialysis Sodium Chloride 3 ml 08/22/24 14:07 08/25/24 15:03 Sodium Chloride Rt Jing 0.9% 3 Ml Nebu INH 09/21/24 14:06 3 ml PRN PRN Administration SOLN Plan Patient is a 64-year-old male past medical history of HFrEF (EF 10-15%), ischemic cardiomyopathy, CKD IIIb, CAD s/p stents, atrial fibrillation, NSVT, hypertension, hyperlipidemia, IDDM2, and bilateral BKAs who was admitted to the ICU for cardiogenic shock and acute on chronic renal failure requiring vasopressor support and CRRT. Patient was noted to have severe bradycardia in 40s both in ED and en route to ED, given atropine x2 however bradycardia did not resolve, external pacing was initiated. Cardiology team consulted for severe bradycardia in setting of hyperkalemia 7.5. 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 Atropine x2 did not improve bradycardia, external pacing initiated. - Echo (May 2024): EF 10-15% with severe systolic dysfunction. Grade III DD with akinetic apex with severe global hypokinesis - Echo (Aug 2024): EF 40% with anteroseptal akinesis with moderate LV dysfunction. - Levophed and Dopamine started, have been weaned off - Nephrology team following, CRRT per nephrology recommendations. Nephrology team may consider dialysis if patient is agreeable, creatinine uptrended 2.8 on 08/25 - Monitor electrolytes, goal of K > 4 and Magnesium > 2 - Bradycardia likely caused by hyperkalemia - Given history of atrial fibrillation and NSVT, advise resuming amiodarone. For concerns of bradycardia, advise 200mg amiodarone qday (reduced from patient's home BID dose). Given bradycardia and hypotension concerns, agree with holding home metoprolol for now until clinical status improves - If patient continues dialysis outpatient, may consider adding spironolactone to regimen - ICD no longer considered as patient's EF has been noted to improve between May 2024 and Aug 2024. Previously was contraindicated due to NYHA Class IV with drug-refractory CHF and survival prognosis < 6 months, these reasons are no longer applicable. - Carvedilol 3.125 mg BID started - Midodrine 10mg TID with MAP goal ~ 70, advising reducing dose to 5mg TID if blood pressure allow - Will gradually begin GDMT as vitals allow, will play to initiate ARB in outpatient setting #JADIEL on CKD?on CRRT #Hyperkalemia #Lactic acidosis #History of osteomyelitis status post BKA - Management per primary team Patient case discussed with attending physician Dr. Marcus Raman, DO PGY-3
--- NOTE | 2024-08-28 16:52 | ESPR_ITS ---
<Statement entered by Harjinder Neville MD - 08/28/24 18:01> Patient was seen and examined at the bedside. Patient has been eating and drinking more and has been doing better. Vitals were stable. Patient received hemodialysis yesterday. Urine output recorded was 100 cc. Hemoglobin was stable. KCl was repleted as potassium was 3.2. Kidney functions improved after dialysis. Phosphorus was repleted. Nephrology recommended that patient will require dialysis twice weekly. We started Coreg for GDMT for HFrEF. Currently awaiting insurance authorization for outpatient dialysis. Completing course of Rocephin for UTI tomorrow morning. All labs and orders were reviewed. I saw and examined the patient, and I agree with current management stated by Dr Gabe MD,PGY1. Plan of care was discussed with the attending physician and resident physician. Disclaimer: Despite multiple revisions, due to the dictation software being used, the document bellow may not be free of grammatical errors including phonetic/typographic errors. However, this does not deter from our commitment to providing health care in the patient's best interest in mind. Dr. Kimberli MD, PGY 2 Documentation for date of: 08/28/24 Subjective Subjective Interval history: No acute overnight events. Patient seen and examined at bedside this morning. Patient is currently saturating above 95% on room air. Patient feels great and states that he has been able to eat a little more than usual and enjoys and drinks all of the Glucerna shakes. Encouraged the at bedside to bring him food from home with low-salt. Patient is having regular bowel movement and about 100 cc of urine. Patient states that he has been using urinal and he usually urinates couple times a day approximately 50 mL. Vitals are stable labs are stable with hemoglobin of 9.0 sodium is 138 potassium 3.2 creatinine is improved to 2.1 BUN 15 and GFR 34. Patient will receive his last dose of ceftriaxone tomorrow and currently will undergo dialysis 2 times a week as per nephrology's recommendation. Patient is awaiting insurance authorization for outpatient dialysis. Cardiology team is following but patient has not been started on goal-directed medical therapy due to shock and hypotension as patient continues to have soft blood pressure. Will add Coreg for now and patient will need to follow-up with outpatient cardiology to add goal-directed medical therapy. Exam Vital Signs Temp Pulse Resp BP Pulse Ox O2 Del Method O2 Flow Rate 97.8 F 74 18 96/52 L 96 Room Air 2 08/28/24 16:00 08/28/24 16:00 08/28/24 16:00 08/28/24 16:00 08/28/24 16:00 08/28/24 16:00 08/28/24 08:00 Narrative Exam GENERAL: A&Ox3 . awake, ill appear elderly male, in pleasant mood NEURO: no focal neurological deficits HEENT: Atraumatic, Normocephalic. mucous membranes moist. Eyes open, symmetrical, & clear HEART: Normal Heart Sounds LUNGS: Clear to auscultation with no wheezing or crackles. ABDOMEN: soft, non-distended, non-tender, bowel sounds heard, no guarding or rebound tenderness SKIN: No Rash or ecchymoses EXTREMITIES: bilateral BKA, amputation of the digits 3,4,5 of the right hand Objective Labs 08/30/24 05:00 08/30/24 05:00 Labs: Laboratory Results - last 24 hr 08/28/24 05:28 WBC 7.1 RBC 3.41 L Hgb 9.0 L Hct 27.9 L MCV 82 MCH 26.4 MCHC 32.3 RDW Std Deviation 57.6 H Plt Count 132 L Neut % (Auto) 69 Lymph % (Auto) 14 [place] % (Auto) 12 Eos % (Auto) 4 Baso % (Auto) 0 Neut # (Auto) 4.8 Lymph # (Auto) 1.0 [place] # (Auto) 0.9 H Eos # (Auto) 0.3 Baso # (Auto) 0.0 Immature Gran # (Auto) 0.08 H Absolute Nucleated RBC 0.02 H Immature Gran % 1 H Nucleated RBC % 0 Sodium 138 Potassium 3.2 L Chloride 100 Carbon Dioxide 28.0 Anion Gap 10 BUN 15 Creatinine 2.1 H D Estim Creat Clear Calc 29.0 L eGFR 34 L BUN/Creatinine Ratio 7 L Glucose 123 H D Calculated Osmolality 277 Calcium 8.0 L Corrected Calcium 8.9 Phosphorus 1.1 L Magnesium 1.9 Total Bilirubin 0.3 AST 14 ALT 31 Alkaline Phosphatase 72 Total Protein 5.4 L Albumin 2.9 L Globulin 2.5 Albumin/Globulin Ratio 1.2 ABG Interpretation ABG results: 08/21/24 08/21/24 08/22/24 20:24 23:24 04:35 ABG pH 7.26 L ABG pCO2 31 L ABG pO2 92 ABG HCO3 14 L ABG O2 Saturation 97 ABG Base Excess -12 L VBG pH 7.32 L 7.22 L VBG pCO2 30 L 35 L VBG pO2 66 H 85 H VBG Base Excess -10 L -12 L 08/24/24 08:40 ABG pH ABG pCO2 ABG pO2 ABG HCO3 ABG O2 Saturation ABG Base Excess VBG pH 7.36 VBG pCO2 31 L VBG pO2 80 H VBG Base Excess -8 L Quality Measures Quality Measures none Advance care planning discussed with:: patient Assessment & Plan Assessment Current Active Medications: Generic Name Dose Route Start Last Admin Trade Name Freq PRN Reason Stop Dose Admin Acetaminophen 650 mg 08/21/24 23:37 Acetaminophen 325 Mg Tablet PO 09/20/24 23:36 Q4HR PRN PAIN SCALE 1-3 (mild Acetaminophen 650 mg 08/21/24 23:37 Acetaminophen Supp 650 Mg Supp [place] 09/20/24 23:36 Q4HR PRN PAIN SCALE 1-3 (mild Acetylcysteine 3 ml 08/26/24 15:00 08/28/24 15:08 Acetylcysteine Rt Jing 10% 4 Ml Nebu INH 09/25/24 14:59 3 ml Q8HRRT KENNY Administration Al Hydrox/Mg Hydrox/Simethicone 30 ml 08/22/24 00:31 Mg Hyd/Al Hyd/Stephy (Maalox Reg) Susp 30 Ml Udc PO 09/20/24 23:36 Q4HR PRN Heartburn or Upset Stomach Albuterol 2.5 mg 08/26/24 15:00 08/28/24 15:08 Albuterol Rt 2.5 Mg/0.5 Ml Nebu INH 09/25/24 14:59 2.5 mg Q8HRRT KENNY Administration Amiodarone HCl 200 mg 08/24/24 15:00 08/28/24 09:14 Amiodarone Hcl 200 Mg Tablet PO 09/23/24 14:59 200 mg QDAY KENNY Administration Carvedilol 3.125 mg 08/28/24 17:30 Carvedilol 3.125 Mg Tablet PO 09/27/24 17:29 BIDWM KENNY Citric Acid/Sodium Citrate 30 ml 08/24/24 21:00 08/28/24 09:14 Citric Acid/Sodium Citr 15 Ml Udc (Bicitra) PO 09/23/24 20:59 30 ml BID KENNY Administration Dextrose 25 ml 08/22/24 04:20 08/22/24 11:43 Dextrose 50%-Water Inj 50 Ml Syringe IV 09/21/24 04:19 25 ml Q15MIN PRN Administration BG 50-70 responsive npo pt Dextrose 50 ml 08/22/24 04:20 Dextrose 50%-Water Inj 50 Ml Syringe IV 09/21/24 04:19 Q15MIN PRN BG <50 OR BG <70 & pt unresponsive Ferrous Sulfate 325 mg 08/24/24 08:30 08/28/24 09:14 Ferrous Sulf 325 Mg Tablet PO 09/23/24 08:29 325 mg QOD KENNY Administration Heparin Sodium (Porcine) 3,500 unit 08/27/24 15:36 08/27/24 17:40 Heparin Sod Inj 1000 Unit/Ml Vial 10 Ml INDWELLCAT 09/10/24 15:35 3,500 unit PRN PRN Administration DIALYSIS Albumin Human 25 gm in 100 mls @ 100 mls/min 08/22/24 05:34 Albuminar-25 Ivpb IV PRN PRN DIALYSIS Ceftriaxone Sodium/Dextrose 50 mls @ 100 mls/hr 08/27/24 09:00 08/28/24 09:12 Rocephin/D5w 1gm Iv Premix IV 08/29/24 08:59 100 mls/hr QDAY KENNY Administration Insulin Human Lispro 0 unit 08/26/24 06:00 08/28/24 16:22 Insulin Lispro (Admelog) 1 Unit/0.01 Ml Unit SC 09/25/24 05:59 5 unit Q6HR KENNY Administration Protocol Magnesium Hydroxide 30 ml 08/21/24 23:37 Milk Of Magnesia Susp 30 Ml Udc PO 09/20/24 23:36 QDAY PRN CONSTIPATION Midodrine 10 mg 08/27/24 07:12 08/28/24 13:51 Midodrine 5 Mg Tablet PO 09/25/24 21:59 10 mg TID KENNY Administration Pharmacy Consult 1 each 08/23/24 08:21 Pharmacy To Consult Patient XX 09/22/24 08:20 PRN PRN Starting 24Hr Continuous/Intermittent Dialysis Sodium Chloride 3 ml 08/22/24 14:07 08/25/24 15:03 Sodium Chloride Rt Jing 0.9% 3 Ml Nebu INH 09/21/24 14:06 3 ml PRN PRN Administration SOLN Plan Mr. Galdamez is a 64-year-old male with a past medical history of hypertension, hyperlipidemia, CKD stage IIIb, diabetes, bilateral BKA's, A-fib, CAD status post stent, HFrEF with ejection fraction 10 to 15% who presented to the ED on 08/21/2024 from [facility] with altered mental status and generalized weakness. #ESRD #New onset hemodialysis post tunneled dialysis catheter, 08/26 # Worsening JADIEL on CKD required CRRT #Lactic acidosis -improved #Hyperkalemia - resolved -creatinine on admission 6.3, GFR 9, lactic acid 5.1, potassium on admission 7.5 -During this ICU admission pt is started on CRRT -Pt underwent permanent tunneled dialysis catheter, per nephrology recs pt will need to undergo HD dialysis 2x per week out patient -nephrology following #Acute blood loss anemia #Iron deficiency anemia -Morning labs Hgb 6.6 and 1 unit transfused -source of bleeding is yet to be determined, upper vs. lower GI, Pt also developed ESRD could be due to decrease erythropoitin -Iron panel: Iron 42, TIBC 235, Iron sat 17 and unsat Iron binding 193 -FOBT ordered -Will consider GI consult if FOBT is positive. #UTI #hematuria #pyuria -Urinalysis is positive for leukocyte esterace, urine rbc 5180, urine wbc 1928 -urine culture show no growth -Pt is started on ceftriaoxone 08/27- #Cardiogenic shock- resolved #symptomatic bradycardia 2/2 to hyperkalemia #HFrEF (10-15%) -On admission pt was found to have bradycardia with HR in 40's, atropine x2 was given in the ED -Due to hypotension with BP of 77/55 and MAP <65, pt was started on levophed and dopamine drips, eventually weaned off on 08/24 -started on midodrine 10mg Q6HR -Per cardiology- ICD not indicated in patient for following reasons: Patient has NYHA Class IV with drug-refractory CHF, reasonable expectation of survival with an acceptable functional status < 6 months -Per cardiology, patient currently not a candidate for surgical intervention -On discharge, patient will benefit from GDMT optimized with Entresto if blood pressure tolerates. Currently BP is too soft to start GDMT, pt will need to follow up outpatient cardiology -Cardio following -Started Coreg 3.25mg BID (parameters hold if SBP <100, HR <50, MAP <65) #history of A-fib -Pt has history of a-fib and home meds include metoprolol, amiodarone and eliquis. metoprolol and eliquis -currently on hold due to bradycardia and acute blood loss anemia CHADVAS score 3 and MELDs score 17 -Pt is in sinus rhythm and will resume meds when able -resumed amiodarone Qday #insulin dependent Type 2 diabetes, uncontrolled #Hx of osteomylitis s/p bilaterally BKA -A1c 10.2 -Pt home medications include glargine 15 units BID -insulin sliding scale started -hypoglycemic protocol in place -Pt underwent bilateral BKA due to long standing uncontrolled T2DM #Transiminitis -improving -On admission AST and ALT mildy elevated, T. bili and ALP with in normal range. -Likely secondary to shock, will continue to monitor as shock has now resolved. Health Maintenance Disposition: telemetry DVT Prophylaxis: Heparin 5000 units SC Q12 hrs GI Prophylaxis: not indicated Diet: regular diet plus ensure Lines: Peripheral lines Code status: DNR Assessment and plan discussed with my senior resident Dr. Neville & attending physician Dr. Matthew Bernal (PGY-1)- Internal medicine resident Attending Provider Attestation/Addendum I have discussed and was present for the essential components of the history, physical examination, diagnosis, and treatment plan with the resident. I agree with the patient's care as documented by the resident and amended herein by me. Dann Castro DO. Although this document has been carefully reviewed, there may still be some phonetic and other typographical errors. These errors are purely grammatical due to imperfections in the software program and should not be construed in any way to compromise the substance of the patient's medical care during this visit.
[2024-08-28] MEDS: carVEDILOL 3.125 MG TABLET PO (16:59)
[2024-08-28] MEDS: MIDODRINE 5 MG TABLET PO (21:03)
[2024-08-29] VITALS (33 sets, daily range): BP systolic 90–124; BP diastolic 48–68; PULSE 59–90; RESP 12–94; TEMP 36.1–36.8; O2SAT 92–99; BMI 20.5
[2024-08-29] MEDS: MIDODRINE 5 MG TABLET PO ×2 (05:06→15:14)
[2024-08-29 05:50] LABS: Basophils % (Auto) 1 % (0-2.5); Eosinophils # (Auto) 0.5 Thou/mm3 (0.0-0.5); Eosinophils % (Auto) 6 % (0-10); Hematocrit 27.1 % (41.0-53.0); Immature Granulocytes % (Auto) 3 % (0-0); Lymphocytes # (Auto) 1.2 Thou/mm3 (1.0-4.8); Lymphocytes % (Auto) 15 % (10-50); Mean Corpuscular HGB Conc 33.2 g/dl (31.0-37.0); Mean Corpuscular Hemoglobin 27.4 pg (25.0-35.0); Mean Corpuscular Volume 82 fL (80-100); Monocytes # (Auto) 0.9 Thou/mm3 (0.0-0.8); Monocytes % (Auto) 11 % (0-12); Neutrophils # (Auto) 4.9 Thou/mm3 (1.8-7.7); Neutrophils % (Auto) 64 % (37-80); Nucleated Red Blood Cell # 0.04 Thou/mm3 (0.00-0.00); Nucleated Red Blood Cell % 1 /100 WBC (0); Platelet Count 172 Thou/mm3 (140-440); RDW Standard Deviation 59.2 fL (35.1-43.9); Red Blood Count 3.29 Miln/mm3 (4.50-5.90); White Blood Count 7.6 Thou/mm3 (3.8-10.6)
[2024-08-29 06:44] LABS: Alanine Aminotransferase 28 U/L (10-49); Albumin, Serum 2.9 gm/dL (3.4-4.8); Albumin/Globulin Ratio 1.2 (1.2-2.2); Alkaline Phosphatase 70 U/L (46-116); Anion Gap 10 (7-16); Aspartate Amino Transferase 11 U/L (0-34); BUN/Creatinine Ratio 11 Ratio (12-20); Bilirubin,Total 0.3 mg/dL (0.3-1.2); Blood Urea Nitrogen 30 mg/dL (9-23); Calcium 7.7 mg/dL (8.3-10.6); Calcium (Corrected) 8.6 mg/dL (8.5-10.1); Carbon Dioxide 29.4 mMol/L (20.0-31.0); Chloride 99 mMol/L (98-107); Creatinine (Component) 2.8 mg/dL (0.6-1.3); Estimated Creatinine Clearance 21.7 mL/min (>60); Globulin 2.5 gm/dL (2.3-3.5); Glucose 120 mg/dL (74-106); Magnesium 1.8 mg/dL (1.6-2.6); Osmolality,Calculated 282 (275-295); Phosphorous 2.1 mg/dL (2.4-5.1); Potassium 3.2 mMol/L (3.4-5.1); Sodium 138 mMol/L (136-145); Total Protein 5.4 gm/dL (5.7-8.2); eGFR 24 See Note
[2024-08-29] MEDS: ALBUTEROL RT 2.5 MG/0.5 ML NEBU INH ×3 (07:28→22:30)
[2024-08-29] MEDS: ACETYLCYSTEINE RT SOL 10% 4 ML NEBU 3 ML INH ×3 (07:29→22:30)
--- NOTE | 2024-08-29 08:34 | PC.NURSE ---
Decreased goal to 500 cc as BP dropped.
--- NOTE | 2024-08-29 09:11 | PC.SS ---
SS follow up note; SS contacted SUKUMAR Vidal and Tiffany reported that she just received an email that patient is still pending Insurance verification.
[2024-08-29] MEDS: CITRIC ACID/SODIUM CITR 15 ML UDC (BICITRA) 30 ML PO ×2 (12:01→20:54)
[2024-08-29] MEDS: INSULIN LISPRO (AdmeLOG) 1 UNIT/0.01 ML UNIT SC ×2 (12:01→17:40)
[2024-08-29] MEDS: AMIODARONE HCL 200 MG TABLET PO (12:02)
[2024-08-29] MEDS: HEPARIN SOD INJ 1000 UNIT/ML VIAL 10 ML 3500 UNIT INDWELLCAT (12:14)
--- NOTE | 2024-08-29 15:09 | PD.RESPRO ---
Documentation for date of: 08/29/24 Subjective Subjective Interval history: No acute overnight events reported patient seen and examined at during dialysis this morning. Patient is resting comfortably, saturating well room air , has no complaints. Blood pressure is a little soft 93/49 therefore Coreg dose was held. Hemoglobin is stable at 9.0 and other pertinent labs include potassium 3.2 BUN 30 creatinine 2.8 and GFR 24, kidney function appears to be a little worse however patient is undergoing dialysis. Blood glucose is 120. Patient is pending insurance authorization for outpatient dialysis 2 times a week. Exam Vital Signs Temp Pulse Resp BP Pulse Ox O2 Del Method O2 Flow Rate 97.0 F 94 22 H 124/66 95 Room Air 2 08/29/24 12:00 08/29/24 15:06 08/29/24 15:06 08/29/24 12:02 08/29/24 15:06 08/29/24 12:00 08/28/24 08:00 Narrative Exam GENERAL: A&Ox3 . awake, ill appearing elderly male NEURO: no focal neurological deficits HEENT: Atraumatic, Normocephalic. mucous membranes moist. Eyes open, symmetrical, & clear, tunneled dialysis cath in place, dressing clean and dry HEART: Normal Heart Sounds LUNGS: Clear to auscultation with no wheezing or crackles. ABDOMEN: soft, non-distended, non-tender, bowel sounds heard, no guarding or rebound tenderness SKIN: No Rash or ecchymoses EXTREMITIES: bilateral BKA, amputation of the digits 3,4,5 of the right hand Objective Labs 08/30/24 05:00 08/30/24 05:00 Labs: Laboratory Results - last 24 hr 08/29/24 05:42 WBC 7.6 RBC 3.29 L Hgb 9.0 L Hct 27.1 L MCV 82 MCH 27.4 MCHC 33.2 RDW Std Deviation 59.2 H Plt Count 172 D Neut % (Auto) 64 Lymph % (Auto) 15 [place]imes % (Auto) 11 Eos % (Auto) 6 Baso % (Auto) 1 Neut # (Auto) 4.9 Lymph # (Auto) 1.2 [place]imes # (Auto) 0.9 H Eos # (Auto) 0.5 Baso # (Auto) 0.0 Immature Gran # (Auto) 0.20 H Absolute Nucleated RBC 0.04 H Immature Gran % 3 H Nucleated RBC % 1 H Sodium 138 Potassium 3.2 L Chloride 99 Carbon Dioxide 29.4 Anion Gap 10 BUN 30 H Creatinine 2.8 H D Estim Creat Clear Calc 21.7 L eGFR 24 L BUN/Creatinine Ratio 11 L Glucose 120 H Calculated Osmolality 282 Calcium 7.7 L Corrected Calcium 8.6 Phosphorus 2.1 L Magnesium 1.8 Total Bilirubin 0.3 AST 11 ALT 28 Alkaline Phosphatase 70 Total Protein 5.4 L Albumin 2.9 L Globulin 2.5 Albumin/Globulin Ratio 1.2 ABG Interpretation ABG results: 08/21/24 08/21/24 08/22/24 20:24 23:24 04:35 ABG pH 7.26 L ABG pCO2 31 L ABG pO2 92 ABG HCO3 14 L ABG O2 Saturation 97 ABG Base Excess -12 L VBG pH 7.32 L 7.22 L VBG pCO2 30 L 35 L VBG pO2 66 H 85 H VBG Base Excess -10 L -12 L 08/24/24 08:40 ABG pH ABG pCO2 ABG pO2 ABG HCO3 ABG O2 Saturation ABG Base Excess VBG pH 7.36 VBG pCO2 31 L VBG pO2 80 H VBG Base Excess -8 L Quality Measures Quality Measures none Advance care planning discussed with:: patient Assessment & Plan Assessment Current Active Medications: Generic Name Dose Route Start Last Admin Trade Name Freq PRN Reason Stop Dose Admin Acetaminophen 650 mg 08/21/24 23:37 Acetaminophen 325 Mg Tablet PO 09/20/24 23:36 Q4HR PRN PAIN SCALE 1-3 (mild Acetaminophen 650 mg 08/21/24 23:37 Acetaminophen Supp 650 Mg Supp DE 09/20/24 23:36 Q4HR PRN PAIN SCALE 1-3 (mild Acetylcysteine 3 ml 08/26/24 15:00 08/29/24 07:29 Acetylcysteine Rt Jing 10% 4 Ml Nebu INH 09/25/24 14:59 3 ml Q8HRRT KENNY Administration Al Hydrox/Mg Hydrox/Simethicone 30 ml 08/22/24 00:31 Mg Hyd/Al Hyd/Stephy (Maalox Reg) Susp 30 Ml Udc PO 09/20/24 23:36 Q4HR PRN Heartburn or Upset Stomach Albuterol 2.5 mg 08/26/24 15:00 08/29/24 07:28 Albuterol Rt 2.5 Mg/0.5 Ml Nebu INH 09/25/24 14:59 2.5 mg Q8HRRT KENNY Administration Amiodarone HCl 200 mg 08/24/24 15:00 08/29/24 12:02 Amiodarone Hcl 200 Mg Tablet PO 09/23/24 14:59 200 mg QDAY KENNY Administration Carvedilol 3.125 mg 08/28/24 17:30 08/29/24 07:53 Carvedilol 3.125 Mg Tablet PO 09/27/24 17:29 Not Given BIDWM KENNY Citric Acid/Sodium Citrate 30 ml 08/24/24 21:00 08/29/24 12:01 Citric Acid/Sodium Citr 15 Ml Udc (Bicitra) PO 09/23/24 20:59 30 ml BID KENNY Administration Dextrose 25 ml 08/22/24 04:20 08/22/24 11:43 Dextrose 50%-Water Inj 50 Ml Syringe IV 09/21/24 04:19 25 ml Q15MIN PRN Administration BG 50-70 responsive npo pt Dextrose 50 ml 08/22/24 04:20 Dextrose 50%-Water Inj 50 Ml Syringe IV 09/21/24 04:19 Q15MIN PRN BG <50 OR BG <70 & pt unresponsive Ferrous Sulfate 325 mg 08/24/24 08:30 08/28/24 09:14 Ferrous Sulf 325 Mg Tablet PO 09/23/24 08:29 325 mg QOD KENNY Administration Heparin Sodium (Porcine) 3,500 unit 08/27/24 15:36 08/29/24 12:14 Heparin Sod Inj 1000 Unit/Ml Vial 10 Ml INDWELLCAT 09/10/24 15:35 3,500 unit PRN PRN Administration DIALYSIS Albumin Human 25 gm in 100 mls @ 100 mls/min 08/22/24 05:34 Albuminar-25 Ivpb IV PRN PRN DIALYSIS Insulin Human Lispro 0 unit 08/29/24 07:30 08/29/24 12:01 Insulin Lispro (Admelog) 1 Unit/0.01 Ml Unit SC 09/28/24 07:29 2 unit AC KENNY Administration Protocol Magnesium Hydroxide 30 ml 08/21/24 23:37 Milk Of Magnesia Susp 30 Ml Udc PO 09/20/24 23:36 QDAY PRN CONSTIPATION Midodrine 5 mg 08/28/24 22:00 08/29/24 05:06 Midodrine 5 Mg Tablet PO 09/27/24 21:59 5 mg TID KENNY Administration Pharmacy Consult 1 each 08/23/24 08:21 Pharmacy To Consult Patient XX 09/22/24 08:20 PRN PRN Starting 24Hr Continuous/Intermittent Dialysis Sodium Chloride 3 ml 08/22/24 14:07 08/25/24 15:03 Sodium Chloride Rt Jing 0.9% 3 Ml Nebu INH 09/21/24 14:06 3 ml PRN PRN Administration SOLN Plan Mr. Galdamez is a 64-year-old male with a past medical history of hypertension, hyperlipidemia, CKD stage IIIb, diabetes, bilateral BKA's, A-fib, CAD status post stent, HFrEF with ejection fraction 10 to 15% who presented to the ED on 08/21/2024 from [facility] with altered mental status and generalized weakness. #ESRD #New onset hemodialysis post tunneled dialysis catheter, 08/26 # Worsening JADIEL on CKD required CRRT #Lactic acidosis -improved #Hyperkalemia - resolved -creatinine on admission 6.3, GFR 9, lactic acid 5.1, potassium on admission 7.5 -During this ICU admission pt is started on CRRT -Pt underwent permanent tunneled dialysis catheter, per nephrology recs pt will need to undergo HD dialysis 2x per week out patient -nephrology following #Acute blood loss anemia #Iron deficiency anemia -Morning labs Hgb 6.6 and 1 unit transfused -source of bleeding is yet to be determined, upper vs. lower GI, Pt also developed ESRD could be due to decrease erythropoitin -Iron panel: Iron 42, TIBC 235, Iron sat 17 and unsat Iron binding 193 -FOBT negative -Pt receive EPO with dialysis, which has stabilized Hgb #UTI #hematuria #pyuria -Urinalysis is positive for leukocyte esterace, urine rbc 5180, urine wbc 1928 -urine culture show no growth -Pt is started on ceftriaoxone 08/27- #Cardiogenic shock- resolved #symptomatic bradycardia 2/2 to hyperkalemia #HFrEF (10-15%) -On admission pt was found to have bradycardia with HR in 40's, atropine x2 was given in the ED -Due to hypotension with BP of 77/55 and MAP <65, pt was started on levophed and dopamine drips, eventually weaned off on 08/24 -started on midodrine 10mg Q6HR -Per cardiology- ICD not indicated in patient for following reasons: Patient has NYHA Class IV with drug-refractory CHF, reasonable expectation of survival with an acceptable functional status < 6 months -Per cardiology, patient currently not a candidate for surgical intervention -On discharge, patient will benefit from GDMT optimized with Entresto if blood pressure tolerates. Currently BP is too soft to start GDMT, pt will need to follow up outpatient cardiology -Repeat echo results : Anteroseptal akinesis with moderate LV dysfunction approximate ejection fraction is 40%. Normal RV function normal PA pressure Mild to moderate mitral regurgitation Moderate TR -Cardio following -Started Coreg 3.25mg BID (parameters hold if SBP <100, HR <50, MAP <65) #history of A-fib -Pt has history of a-fib and home meds include metoprolol, amiodarone and eliquis. metoprolol and eliquis -currently on hold due to bradycardia and acute blood loss anemia CHADVAS score 3 and MELDs score 17 -Pt is in sinus rhythm and will resume meds when able -resumed amiodarone Qday #insulin dependent Type 2 diabetes, uncontrolled #Hx of osteomylitis s/p bilaterally BKA -A1c 10.2 -Pt home medications include glargine 15 units BID -insulin sliding scale started -hypoglycemic protocol in place -Pt underwent bilateral BKA due to long standing uncontrolled T2DM #Transiminitis - resolved -On admission AST and ALT mildy elevated, T. bili and ALP with in normal range. -Likely secondary to shock, will continue to monitor as shock has now resolved. Health Maintenance Disposition: telemetry DVT Prophylaxis: Heparin 5000 units SC Q12 hrs GI Prophylaxis: not indicated Diet: regular diet plus ensure Lines: Peripheral lines Code status: DNR Assessment and plan discussed with my attending physician Dr. Matthew Bernal (PGY-1)- Internal medicine resident Attending Provider Attestation/Addendum I have discussed and was present for the essential components of the history, physical examination, diagnosis, and treatment plan with the resident. I agree with the patient's care as documented by the resident and amended herein by me. Dann Castro DO. Although this document has been carefully reviewed, there may still be some phonetic and other typographical errors. These errors are purely grammatical due to imperfections in the software program and should not be construed in any way to compromise the substance of the patient's medical care during this visit.
--- NOTE | 2024-08-29 15:26 | ESPR_ITS ---
<Statement entered by Janee Velazquez MD - 08/31/24 13:37> I personally examined the patient with resident physician PGY 3 Dr. Raman agree with the treatment plan recommendation patient clinically improving ejection fraction is around 40% and continue the medical management including low-dose beta-yesika as tolerated amiodarone for arrhythmias will monitor cardiac status closely.Continue midodrine lower dose and carvedilol as tolerated Documentation for date of: 08/29/24 Subjective Subjective Interval history: Overnight events, lab/imaging results, and notes reviewed. Patient examined bedside, reports feeling without any complains today. Coreg was held today due to soft blood pressures, otherwise charted vitals show normo-tensive blood pressures. Recommend continuing midodrine 5mg TID. Exam Vital Signs Temp Pulse Resp BP Pulse Ox O2 Del Method O2 Flow Rate 97.0 F 72 23 H 109/48 L 97 Room Air 2 08/29/24 12:00 08/29/24 15:14 08/29/24 15:06 08/29/24 15:14 08/29/24 15:06 08/29/24 12:00 08/28/24 08:00 Narrative Exam General: AOx3, cooperative, in no acute distress HEENT: Atraumatic/normocephalic, RUPERT Heart: RRR, S1 and S2 without clicks or murmurs Lungs: Clear on auscultation bilaterally, no difficulty breathing Abdomen: Soft, nontender. Bowel sounds present on all quadrants Skin: Bilateral lower extremity BKAs, no edema or cyanosis noted. Right hand amputations digits 3-5. Neuro: No focal neurological deficits noted on appearance Objective Labs 08/29/24 05:42 08/29/24 05:42 Labs: Laboratory Results - last 24 hr 08/29/24 05:42 WBC 7.6 RBC 3.29 L Hgb 9.0 L Hct 27.1 L MCV 82 MCH 27.4 MCHC 33.2 RDW Std Deviation 59.2 H Plt Count 172 D Neut % (Auto) 64 Lymph % (Auto) 15 [place] % (Auto) 11 Eos % (Auto) 6 Baso % (Auto) 1 Neut # (Auto) 4.9 Lymph # (Auto) 1.2 [place] # (Auto) 0.9 H Eos # (Auto) 0.5 Baso # (Auto) 0.0 Immature Gran # (Auto) 0.20 H Absolute Nucleated RBC 0.04 H Immature Gran % 3 H Nucleated RBC % 1 H Sodium 138 Potassium 3.2 L Chloride 99 Carbon Dioxide 29.4 Anion Gap 10 BUN 30 H Creatinine 2.8 H D Estim Creat Clear Calc 21.7 L eGFR 24 L BUN/Creatinine Ratio 11 L Glucose 120 H Calculated Osmolality 282 Calcium 7.7 L Corrected Calcium 8.6 Phosphorus 2.1 L Magnesium 1.8 Total Bilirubin 0.3 AST 11 ALT 28 Alkaline Phosphatase 70 Total Protein 5.4 L Albumin 2.9 L Globulin 2.5 Albumin/Globulin Ratio 1.2 ABG Interpretation ABG results: 08/21/24 08/21/24 08/22/24 20:24 23:24 04:35 ABG pH 7.26 L ABG pCO2 31 L ABG pO2 92 ABG HCO3 14 L ABG O2 Saturation 97 ABG Base Excess -12 L VBG pH 7.32 L 7.22 L VBG pCO2 30 L 35 L VBG pO2 66 H 85 H VBG Base Excess -10 L -12 L 08/24/24 08:40 ABG pH ABG pCO2 ABG pO2 ABG HCO3 ABG O2 Saturation ABG Base Excess VBG pH 7.36 VBG pCO2 31 L VBG pO2 80 H VBG Base Excess -8 L Quality Measures Quality Measures none Advance care planning discussed with:: patient Assessment & Plan Assessment Current Active Medications: Generic Name Dose Route Start Last Admin Trade Name Freq PRN Reason Stop Dose Admin Acetaminophen 650 mg 08/21/24 23:37 Acetaminophen 325 Mg Tablet PO 09/20/24 23:36 Q4HR PRN PAIN SCALE 1-3 (mild Acetaminophen 650 mg 08/21/24 23:37 Acetaminophen Supp 650 Mg Supp WI 09/20/24 23:36 Q4HR PRN PAIN SCALE 1-3 (mild Acetylcysteine 3 ml 08/26/24 15:00 08/29/24 15:12 Acetylcysteine Rt Jing 10% 4 Ml Nebu INH 09/25/24 14:59 3 ml Q8HRRT KENNY Administration Al Hydrox/Mg Hydrox/Simethicone 30 ml 08/22/24 00:31 Mg Hyd/Al Hyd/Stephy (Maalox Reg) Susp 30 Ml Udc PO 09/20/24 23:36 Q4HR PRN Heartburn or Upset Stomach Albuterol 2.5 mg 08/26/24 15:00 08/29/24 15:12 Albuterol Rt 2.5 Mg/0.5 Ml Nebu INH 09/25/24 14:59 2.5 mg Q8HRRT KENNY Administration Amiodarone HCl 200 mg 08/24/24 15:00 08/29/24 12:02 Amiodarone Hcl 200 Mg Tablet PO 09/23/24 14:59 200 mg QDAY KENNY Administration Carvedilol 3.125 mg 08/28/24 17:30 08/29/24 07:53 Carvedilol 3.125 Mg Tablet PO 09/27/24 17:29 Not Given BIDWM KENNY Citric Acid/Sodium Citrate 30 ml 08/24/24 21:00 08/29/24 12:01 Citric Acid/Sodium Citr 15 Ml Udc (Bicitra) PO 09/23/24 20:59 30 ml BID KENNY Administration Dextrose 25 ml 08/22/24 04:20 08/22/24 11:43 Dextrose 50%-Water Inj 50 Ml Syringe IV 09/21/24 04:19 25 ml Q15MIN PRN Administration BG 50-70 responsive npo pt Dextrose 50 ml 08/22/24 04:20 Dextrose 50%-Water Inj 50 Ml Syringe IV 09/21/24 04:19 Q15MIN PRN BG <50 OR BG <70 & pt unresponsive Ferrous Sulfate 325 mg 08/24/24 08:30 08/28/24 09:14 Ferrous Sulf 325 Mg Tablet PO 09/23/24 08:29 325 mg QOD KENNY Administration Heparin Sodium (Porcine) 3,500 unit 08/27/24 15:36 08/29/24 12:14 Heparin Sod Inj 1000 Unit/Ml Vial 10 Ml INDWELLCAT 09/10/24 15:35 3,500 unit PRN PRN Administration DIALYSIS Albumin Human 25 gm in 100 mls @ 100 mls/min 08/22/24 05:34 Albuminar-25 Ivpb IV PRN PRN DIALYSIS Insulin Human Lispro 0 unit 08/29/24 07:30 08/29/24 12:01 Insulin Lispro (Admelog) 1 Unit/0.01 Ml Unit SC 09/28/24 07:29 2 unit AC KENNY Administration Protocol Magnesium Hydroxide 30 ml 08/21/24 23:37 Milk Of Magnesia Susp 30 Ml Udc PO 09/20/24 23:36 QDAY PRN CONSTIPATION Midodrine 5 mg 08/28/24 22:00 08/29/24 15:14 Midodrine 5 Mg Tablet PO 09/27/24 21:59 5 mg TID KENNY Administration Pharmacy Consult 1 each 08/23/24 08:21 Pharmacy To Consult Patient XX 09/22/24 08:20 PRN PRN Starting 24Hr Continuous/Intermittent Dialysis Sodium Chloride 3 ml 08/22/24 14:07 08/25/24 15:03 Sodium Chloride Rt Jing 0.9% 3 Ml Nebu INH 09/21/24 14:06 3 ml PRN PRN Administration SOLN Plan Patient is a 64-year-old male past medical history of HFrEF (EF 10-15%), ischemic cardiomyopathy, CKD IIIb, CAD s/p stents, atrial fibrillation, NSVT, hypertension, hyperlipidemia, IDDM2, and bilateral BKAs who was admitted to the ICU for cardiogenic shock and acute on chronic renal failure requiring vasopressor support and CRRT. Patient was noted to have severe bradycardia in 40s both in ED and en route to ED, given atropine x2 however bradycardia did not resolve, external pacing was initiated. Cardiology team consulted for severe bradycardia in setting of hyperkalemia 7.5. 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 Atropine x2 did not improve bradycardia, external pacing initiated. - Echo (May 2024): EF 10-15% with severe systolic dysfunction. Grade III DD with akinetic apex with severe global hypokinesis - Echo (Aug 2024): EF 40% with anteroseptal akinesis with moderate LV dysfunction. - Levophed and Dopamine started, have been weaned off - Nephrology team following, CRRT per nephrology recommendations. Nephrology team may consider dialysis if patient is agreeable, creatinine uptrended 2.8 on 08/25 - Monitor electrolytes, goal of K > 4 and Magnesium > 2 - Bradycardia likely caused by hyperkalemia - Given history of atrial fibrillation and NSVT, advise resuming amiodarone. For concerns of bradycardia, advise 200mg amiodarone qday (reduced from patient's home BID dose). Given bradycardia and hypotension concerns, agree with holding home metoprolol for now until clinical status improves - If patient continues dialysis outpatient, may consider adding spironolactone to regimen - ICD no longer considered as patient's EF has been noted to improve between May 2024 and Aug 2024. Previously was contraindicated due to NYHA Class IV with drug-refractory CHF and survival prognosis < 6 months, these reasons are no longer applicable. - Carvedilol 3.125 mg BID started - Midodrine reduced dose to 5mg TID if blood pressure allow, MAP goal of ~ 70+. Continue midodrine for now - Will gradually begin GDMT as vitals allow, will play to initiate ARB in outpatient setting #JADIEL on CKD?on CRRT #Hyperkalemia #Lactic acidosis #History of osteomyelitis status post BKA - Management per primary team Patient case discussed with attending physician Dr. Marcus Raman, DO PGY-3
--- NOTE | 2024-08-29 15:27 | PD.RESPRO ---
Documentation for date of: 08/29/24 Subjective Subjective Interval history: Mr. Galdamez is a 64-year-old male with significant past medical history of hypertension, insulin-dependent diabetes mellitus, CAD s/p PCI, HFrEF [EF 10 to 15%], CKD stage III, bilateral below-knee amputations, atrial fibrillation living in [place] [facility] was brought to the hospital with chief complaints of worsening mentation, shortness of breath and generalized weakness for the past 2 days. Patient was noted to have heart rate dropped to 40s during transit time in the ambulance for which patient was externally paced and 2 doses of atropine was given without response. In the ED, patient was found to have heart rate of 40 with blood pressure of 80/45 mmHg for which cardiology was consulted for suspected AV block. Per industrial engineer, there is no concern for AV block and patient was found to have junctional escape rhythm with underlying atrial fibrillation and recommended to start on Levophed and low-dose dopamine. Patient was admitted to ICU for further care. Also noted patient had decreased p.o. intake 2 days before the day of admission and abdominal discomfort. ED Course: -Initial vitals were blood pressure 111/58 mmHg, SpO2 79% with 15 L oxygen -Labs significant for Hb 8.3, potassium 7.5, bicarb 14, anion gap 19, BUN 85, creatinine 6.2, lactate 7. Urine analysis showed 5000 RBC and 2000 WBC. -Head CT was negative for acute hemorrhage and infarct. -Patient was admitted for shock requiring vasopressors Nephrology was consulted for acute on chronic kidney injury. 08/26/2024 Patient was seen and examined bedside in the telemetry. Patient denies any other complaints. No acute overnight events. Patient is still oliguric. Vitals are stable. Labs showed hemoglobin 6.6, BUN 18, creatinine 2.2 Patient received HD yesterday. Patient is scheduled for tunneled dialysis catheter tomorrow as his renal functions are not improving Patient may require dialysis sessions for few more weeks till the kidney functions come back to its baseline. Explained about his current condition to him and his family at the bedside Recommended to remove the Prather catheter and monitor urine output 08/27/2024 Patient is seen and examined bedside No acute overnight events. Denies any other complaints Still oliguric. Labs showed uptrending Creatinine. will continue 2 HD sessions/ week till the renal functions come back to his normal baseline 08/28/2024 The patient is seen and examined by bedside No acute overnight events. Denies any other complaints. Vitals all stable. Patient is still oliguric. Labs showed sodium 138, potassium 3.2, creatinine 2.1, BUN 15 Recommended to continue dialysis 2 times in a week till patient produces adequate urine output. 08/29/2024 Patient is seen and examined at bedside in the dialysis unit No acute overnight events. Patient denies any other complaints Vitals are stable. Patient is tolerating hemodialysis well Patient still found to be oliguric. Labs showed sodium 138, potassium 3.2, BUN 30, creatinine 2.8 Patient is pending for dialysis chair placement. Will continue dialysis twice in a week tell patient's kidney functions come back to his baseline and able to produce adequate amount of urine Exam Vital Signs Temp Pulse Resp BP Pulse Ox O2 Del Method O2 Flow Rate 97.0 F 72 23 H 109/48 L 97 Room Air 2 08/29/24 12:00 08/29/24 15:14 08/29/24 15:06 08/29/24 15:14 08/29/24 15:06 08/29/24 12:00 08/28/24 08:00 Narrative Exam General: Awake. Lying comfortably on the bed HEENT: Normocephalic, atraumatic, mucous membranes moist. Heart: Regular rate and rhythm, no murmurs. Lungs: Clear to auscultation with no wheezing or crackles. Abdomen: Soft, nondistended, nontender, positive bowel sounds. ?No guarding or rebound tenderness. Neurologic: Alert and oriented x3, no gross neurological deficit, and patient able to move all 4 extremities. Extremities: No edema. 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 B/L BKA Skin: No rash or ecchymoses. Objective Labs 08/31/24 04:48 08/31/24 04:48 Labs: Laboratory Results - last 24 hr 08/29/24 05:42 WBC 7.6 RBC 3.29 L Hgb 9.0 L Hct 27.1 L MCV 82 MCH 27.4 MCHC 33.2 RDW Std Deviation 59.2 H Plt Count 172 D Neut % (Auto) 64 Lymph % (Auto) 15 [place] % (Auto) 11 Eos % (Auto) 6 Baso % (Auto) 1 Neut # (Auto) 4.9 Lymph # (Auto) 1.2 [place] # (Auto) 0.9 H Eos # (Auto) 0.5 Baso # (Auto) 0.0 Immature Gran # (Auto) 0.20 H Absolute Nucleated RBC 0.04 H Immature Gran % 3 H Nucleated RBC % 1 H Sodium 138 Potassium 3.2 L Chloride 99 Carbon Dioxide 29.4 Anion Gap 10 BUN 30 H Creatinine 2.8 H D Estim Creat Clear Calc 21.7 L eGFR 24 L BUN/Creatinine Ratio 11 L Glucose 120 H Calculated Osmolality 282 Calcium 7.7 L Corrected Calcium 8.6 Phosphorus 2.1 L Magnesium 1.8 Total Bilirubin 0.3 AST 11 ALT 28 Alkaline Phosphatase 70 Total Protein 5.4 L Albumin 2.9 L Globulin 2.5 Albumin/Globulin Ratio 1.2 ABG Interpretation ABG results: 08/21/24 08/21/24 08/22/24 20:24 23:24 04:35 ABG pH 7.26 L ABG pCO2 31 L ABG pO2 92 ABG HCO3 14 L ABG O2 Saturation 97 ABG Base Excess -12 L VBG pH 7.32 L 7.22 L VBG pCO2 30 L 35 L VBG pO2 66 H 85 H VBG Base Excess -10 L -12 L 08/24/24 08:40 ABG pH ABG pCO2 ABG pO2 ABG HCO3 ABG O2 Saturation ABG Base Excess VBG pH 7.36 VBG pCO2 31 L VBG pO2 80 H VBG Base Excess -8 L Quality Measures Quality Measures none Advance care planning discussed with:: patient Assessment & Plan Assessment Current Active Medications: Generic Name Dose Route Start Last Admin Trade Name Freq PRN Reason Stop Dose Admin Acetaminophen 650 mg 08/21/24 23:37 Acetaminophen 325 Mg Tablet PO 09/20/24 23:36 Q4HR PRN PAIN SCALE 1-3 (mild Acetaminophen 650 mg 08/21/24 23:37 Acetaminophen Supp 650 Mg Supp KS 09/20/24 23:36 Q4HR PRN PAIN SCALE 1-3 (mild Acetylcysteine 3 ml 08/26/24 15:00 08/29/24 15:12 Acetylcysteine Rt Jing 10% 4 Ml Nebu INH 09/25/24 14:59 3 ml Q8HRRT KENNY Administration Al Hydrox/Mg Hydrox/Simethicone 30 ml 08/22/24 00:31 Mg Hyd/Al Hyd/Stephy (Maalox Reg) Susp 30 Ml Udc PO 09/20/24 23:36 Q4HR PRN Heartburn or Upset Stomach Albuterol 2.5 mg 08/26/24 15:00 08/29/24 15:12 Albuterol Rt 2.5 Mg/0.5 Ml Nebu INH 09/25/24 14:59 2.5 mg Q8HRRT KENNY Administration Amiodarone HCl 200 mg 08/24/24 15:00 08/29/24 12:02 Amiodarone Hcl 200 Mg Tablet PO 09/23/24 14:59 200 mg QDAY KENNY Administration Carvedilol 3.125 mg 08/28/24 17:30 08/29/24 07:53 Carvedilol 3.125 Mg Tablet PO 09/27/24 17:29 Not Given BIDWM KENNY Citric Acid/Sodium Citrate 30 ml 08/24/24 21:00 08/29/24 12:01 Citric Acid/Sodium Citr 15 Ml Udc (Bicitra) PO 09/23/24 20:59 30 ml BID KENNY Administration Dextrose 25 ml 08/22/24 04:20 08/22/24 11:43 Dextrose 50%-Water Inj 50 Ml Syringe IV 09/21/24 04:19 25 ml Q15MIN PRN Administration BG 50-70 responsive npo pt Dextrose 50 ml 08/22/24 04:20 Dextrose 50%-Water Inj 50 Ml Syringe IV 09/21/24 04:19 Q15MIN PRN BG <50 OR BG <70 & pt unresponsive Ferrous Sulfate 325 mg 08/24/24 08:30 08/28/24 09:14 Ferrous Sulf 325 Mg Tablet PO 09/23/24 08:29 325 mg QOD KENNY Administration Heparin Sodium (Porcine) 3,500 unit 08/27/24 15:36 08/29/24 12:14 Heparin Sod Inj 1000 Unit/Ml Vial 10 Ml INDWELLCAT 09/10/24 15:35 3,500 unit PRN PRN Administration DIALYSIS Albumin Human 25 gm in 100 mls @ 100 mls/min 08/22/24 05:34 Albuminar-25 Ivpb IV PRN PRN DIALYSIS Insulin Human Lispro 0 unit 08/29/24 07:30 08/29/24 12:01 Insulin Lispro (Admelog) 1 Unit/0.01 Ml Unit SC 09/28/24 07:29 2 unit AC KENNY Administration Protocol Magnesium Hydroxide 30 ml 08/21/24 23:37 Milk Of Magnesia Susp 30 Ml Udc PO 09/20/24 23:36 QDAY PRN CONSTIPATION Midodrine 5 mg 08/28/24 22:00 08/29/24 15:14 Midodrine 5 Mg Tablet PO 09/27/24 21:59 5 mg TID KENNY Administration Pharmacy Consult 1 each 08/23/24 08:21 Pharmacy To Consult Patient XX 09/22/24 08:20 PRN PRN Starting 24Hr Continuous/Intermittent Dialysis Sodium Chloride 3 ml 08/22/24 14:07 08/25/24 15:03 Sodium Chloride Rt Jing 0.9% 3 Ml Nebu INH 09/21/24 14:06 3 ml PRN PRN Administration SOLN Plan A 64-year-old male with significant past medical history of hypertension, insulin-dependent diabetes mellitus, CAD s/p PCI, HFrEF [EF 10 to 15%], CKD stage III, bilateral below-knee amputations, atrial fibrillation living in [place] [facility] was brought to the hospital with chief complaints of worsening mentation, shortness of breath and generalized weakness for the past 2 days. # Acute on chronic kidney disease, stage IIIb Likely prerenal versus ATN in the setting of shock -Patient presented to the hospital with the complaints of shortness of breath worsening mentation and per patient's patient had abdominal pain and foul-smelling urine. -Baseline creatinine as of 07/2024 is 2.4 -On the day of admission, 08/21/2024, creatinine is 6.3 > 08/25, BUN 25, Cr 2.8 1 >08/26, BUN 18, Cr 2 >08/28, BUN 15, Cr 2.1 >08/29, BUN 30, Cr 2.8 -Urine analysis showed turbid urine with 2+ proteinuria, 3+ blood, 5180 RBC, 1928 WBC Plan -Patient got CRRT on 08/22 and one more session done on 08/23,HD on 08/26, 08/27, 08/29 -will continue dialysis 2 times per week till patient renal functions come back to his normal baseline and makes adequate amount of urine output -Monitor renal functions and avoid nephrotoxic medications -Continue antibiotics #Hypokalemia -On 08/29/2024, potassium is 3.2 -Recommend to monitor electrolytes and replete accordingly. # Hyperkalemia, resolved # Hyperphosphatemia, resolved # Lactic acidosis, resolved -Found to have potassium of 7.5 at the time of admission -Since 08/23/2024, Electrolytes are within normal limits #Acute encephalopathy 2/2 UTI #Chronic right parietal stroke #Shock #Acute hypoxic respiratory failure. #Complicated UTI #Chronic anemia #IDDM #Elevated LFT's To be treated per primary team Thank you for allowing us to involved in the care of the patient Patient plan of care was discussed with the attending physician, Dr. Marian Gates, PGY1 Attending Provider Attestation/Addendum Patient seen and examined with resident physician Dr. Pollard. Note reviewed, agree with findings and recommendations. Patient with sepsis and JADIEL. On broad-spectrum antibiotics. Patient received 2 conventional dialysis treatments and 2 CRRT treatment days. No urine output. I had a long conversation with the patient and he agreed for outpatient dialysis-twice weekly. Outpatient dialysis to be arranged. Hep panel and PPD negative Status post PermCath. Patient currently seen on dialysis. Tolerating dialysis without any problems. Hemodialysis for 3 hours, 2K, ultrafiltration 2-3 L, Epogen 6000, no heparin ordered. Plan of care discussed with the dialysis nurse. Please see dialysis flowsheet for further details.
[2024-08-29] MEDS: carVEDILOL 3.125 MG TABLET PO (17:39)
--- NOTE | 2024-08-29 19:24 | PC.NURSE ---
Pt family bringing in food from home due to patient having low appetite, educated family to adjust food choices to match carb consistent diet due to BS 365 and to ask before brining food.
[2024-08-30] VITALS (14 sets, daily range): BP systolic 103–124; BP diastolic 61–69; PULSE 58–93; RESP 16–92; TEMP 36.2–37; O2SAT 90–97
[2024-08-30 05:45] LABS: Basophils % (Auto) 1 % (0-2.5); Eosinophils # (Auto) 0.4 Thou/mm3 (0.0-0.5); Eosinophils % (Auto) 5 % (0-10); Hematocrit 28.2 % (41.0-53.0); Hemoglobin 9.1 g/dL (13.5-16.0); Immature Granulocytes % (Auto) 3 % (0-0); Immature Granulocytes Auto 0.18 Thou/mm3 (0.00-0.00); Lymphocytes # (Auto) 1.7 Thou/mm3 (1.0-4.8); Lymphocytes % (Auto) 24 % (10-50); Mean Corpuscular HGB Conc 32.3 g/dl (31.0-37.0); Mean Corpuscular Volume 84 fL (80-100); Monocytes # (Auto) 0.9 Thou/mm3 (0.0-0.8); Monocytes % (Auto) 13 % (0-12); Neutrophils # (Auto) 3.8 Thou/mm3 (1.8-7.7); Neutrophils % (Auto) 55 % (37-80); Nucleated Red Blood Cell % 0 /100 WBC (0); Platelet Count 120 Thou/mm3 (140-440); RDW Standard Deviation 58.4 fL (35.1-43.9); Red Blood Count 3.37 Miln/mm3 (4.50-5.90)
[2024-08-30 06:17] LABS: Alanine Aminotransferase 16 U/L (10-49); Albumin, Serum 2.8 gm/dL (3.4-4.8); Albumin/Globulin Ratio 1.2 (1.2-2.2); Alkaline Phosphatase 68 U/L (46-116); Anion Gap 9 (7-16); Aspartate Amino Transferase 10 U/L (0-34); BUN/Creatinine Ratio 12 Ratio (12-20); Bilirubin,Total 0.3 mg/dL (0.3-1.2); Blood Urea Nitrogen 23 mg/dL (9-23); Calcium 8.5 mg/dL (8.3-10.6); Calcium (Corrected) 9.5 mg/dL (8.5-10.1); Carbon Dioxide 31.5 mMol/L (20.0-31.0); Chloride 98 mMol/L (98-107); Estimated Creatinine Clearance 30.4 mL/min (>60); Globulin 2.4 gm/dL (2.3-3.5); Glucose 204 mg/dL (74-106); Magnesium 1.8 mg/dL (1.6-2.6); Osmolality,Calculated 285 (275-295); Phosphorous 1.5 mg/dL (2.4-5.1); Potassium 3.1 mMol/L (3.4-5.1); Sodium 138 mMol/L (136-145); Total Protein 5.2 gm/dL (5.7-8.2); eGFR 36 See Note
[2024-08-30] MEDS: ALBUTEROL RT 2.5 MG/0.5 ML NEBU INH ×3 (07:36→23:02)
[2024-08-30] MEDS: ACETYLCYSTEINE RT SOL 10% 4 ML NEBU 3 ML INH (07:36)
[2024-08-30] MEDS: INSULIN LISPRO (AdmeLOG) 1 UNIT/0.01 ML UNIT SC ×3 (08:50→17:40)
[2024-08-30] MEDS: CITRIC ACID/SODIUM CITR 15 ML UDC (BICITRA) 30 ML PO ×2 (08:50→20:15)
[2024-08-30] MEDS: AMIODARONE HCL 200 MG TABLET PO (08:50)
[2024-08-30] MEDS: carVEDILOL 3.125 MG TABLET PO ×2 (08:50→17:39)
[2024-08-30] MEDS: FERROUS SULF 325 MG TABLET PO (08:50)
--- NOTE | 2024-08-30 10:21 | ESPR_ITS ---
<Statement entered by Janee Velazquez MD - 08/31/24 13:38> I personally examined the patient with resident physician PGY 3 Dr. robledo agree with the treatment plan recommendation patient clinically improving ejection fraction is around 40% and continue the medical management including low-dose beta-yesika as tolerated amiodarone for arrhythmias will monitor cardiac status closely.Patient can be discharged and I will see him for follow-up as an outpatient Documentation for date of: 08/30/24 Subjective Subjective Interval history: Patient is evaluated at bedside, asymptomatic, saturating well, stable vitals, patient is awaiting placement, and waiting on dialysis chair, case management and primary team working on securing dialysis chair outpatient. Currently in sinus rhythm, rate controlled on low-dose beta-yesika, continue amiodarone 200 mg daily, carvedilol 3.125 mg twice daily, reasonable to continue midodrine on discharge, can be discharged from cardiology standpoint, follow-up with straddle truck operator outpatient within 2 weeks of discharge. Exam Vital Signs Temp Pulse Resp BP Pulse Ox O2 Del Method O2 Flow Rate 98.6 F 93 16 118/64 95 Room Air 2 08/30/24 08:00 08/30/24 08:50 08/30/24 08:00 08/30/24 08:50 08/30/24 08:00 08/30/24 08:00 08/28/24 08:00 Narrative Exam General: AOx3, cooperative, in no acute distress HEENT: Atraumatic/normocephalic, RUPERT Heart: RRR, S1 and S2 without clicks or murmurs Lungs: Clear on auscultation bilaterally, no difficulty breathing Abdomen: Soft, nontender. Bowel sounds present on all quadrants Skin: Bilateral lower extremity BKAs, no edema or cyanosis noted. Right hand amputations digits 3-5. Neuro: No focal neurological deficits noted on appearance Objective Labs 08/30/24 05:00 08/30/24 05:00 Labs: Laboratory Results - last 24 hr 08/30/24 05:00 WBC 7.0 RBC 3.37 L Hgb 9.1 L Hct 28.2 L MCV 84 MCH 27.0 MCHC 32.3 RDW Std Deviation 58.4 H Plt Count 120 L D Neut % (Auto) 55 Lymph % (Auto) 24 [place] % (Auto) 13 H Eos % (Auto) 5 Baso % (Auto) 1 Neut # (Auto) 3.8 Lymph # (Auto) 1.7 [place] # (Auto) 0.9 H Eos # (Auto) 0.4 Baso # (Auto) 0.0 Immature Gran # (Auto) 0.18 H Absolute Nucleated RBC 0.00 Immature Gran % 3 H Nucleated RBC % 0 Sodium 138 Potassium 3.1 L Chloride 98 Carbon Dioxide 31.5 H Anion Gap 9 BUN 23 Creatinine 2.0 H D Estim Creat Clear Calc 30.4 L eGFR 36 L BUN/Creatinine Ratio 12 Glucose 204 H D Calculated Osmolality 285 Calcium 8.5 Corrected Calcium 9.5 Phosphorus 1.5 L Magnesium 1.8 Total Bilirubin 0.3 AST 10 ALT 16 Alkaline Phosphatase 68 Total Protein 5.2 L Albumin 2.8 L Globulin 2.4 Albumin/Globulin Ratio 1.2 ABG Interpretation ABG results: 08/21/24 08/21/24 08/22/24 20:24 23:24 04:35 ABG pH 7.26 L ABG pCO2 31 L ABG pO2 92 ABG HCO3 14 L ABG O2 Saturation 97 ABG Base Excess -12 L VBG pH 7.32 L 7.22 L VBG pCO2 30 L 35 L VBG pO2 66 H 85 H VBG Base Excess -10 L -12 L 08/24/24 08:40 ABG pH ABG pCO2 ABG pO2 ABG HCO3 ABG O2 Saturation ABG Base Excess VBG pH 7.36 VBG pCO2 31 L VBG pO2 80 H VBG Base Excess -8 L Quality Measures Quality Measures none Advance care planning discussed with:: patient Assessment & Plan Assessment Current Active Medications: Generic Name Dose Route Start Last Admin Trade Name Freq PRN Reason Stop Dose Admin Acetaminophen 650 mg 08/21/24 23:37 Acetaminophen 325 Mg Tablet PO 09/20/24 23:36 Q4HR PRN PAIN SCALE 1-3 (mild Acetaminophen 650 mg 08/21/24 23:37 Acetaminophen Supp 650 Mg Supp MD 09/20/24 23:36 Q4HR PRN PAIN SCALE 1-3 (mild Acetylcysteine 3 ml 08/26/24 15:00 08/30/24 07:36 Acetylcysteine Rt Jing 10% 4 Ml Nebu INH 09/25/24 14:59 3 ml Q8HRRT KENNY Administration Al Hydrox/Mg Hydrox/Simethicone 30 ml 08/22/24 00:31 Mg Hyd/Al Hyd/Stephy (Maalox Reg) Susp 30 Ml Udc PO 09/20/24 23:36 Q4HR PRN Heartburn or Upset Stomach Albuterol 2.5 mg 08/26/24 15:00 08/30/24 07:36 Albuterol Rt 2.5 Mg/0.5 Ml Nebu INH 09/25/24 14:59 2.5 mg Q8HRRT KENNY Administration Amiodarone HCl 200 mg 08/24/24 15:00 08/30/24 08:50 Amiodarone Hcl 200 Mg Tablet PO 09/23/24 14:59 200 mg QDAY KENNY Administration Carvedilol 3.125 mg 08/28/24 17:30 08/30/24 08:50 Carvedilol 3.125 Mg Tablet PO 09/27/24 17:29 3.125 mg BIDWM KENNY Administration Citric Acid/Sodium Citrate 30 ml 08/24/24 21:00 08/30/24 08:50 Citric Acid/Sodium Citr 15 Ml Udc (Bicitra) PO 09/23/24 20:59 30 ml BID KENNY Administration Dextrose 25 ml 08/22/24 04:20 08/22/24 11:43 Dextrose 50%-Water Inj 50 Ml Syringe IV 09/21/24 04:19 25 ml Q15MIN PRN Administration BG 50-70 responsive npo pt Dextrose 50 ml 08/22/24 04:20 Dextrose 50%-Water Inj 50 Ml Syringe IV 09/21/24 04:19 Q15MIN PRN BG <50 OR BG <70 & pt unresponsive Ferrous Sulfate 325 mg 08/24/24 08:30 08/30/24 08:50 Ferrous Sulf 325 Mg Tablet PO 09/23/24 08:29 325 mg QOD KENNY Administration Heparin Sodium (Porcine) 3,500 unit 08/27/24 15:36 08/29/24 12:14 Heparin Sod Inj 1000 Unit/Ml Vial 10 Ml INDWELLCAT 09/10/24 15:35 3,500 unit PRN PRN Administration DIALYSIS Albumin Human 25 gm in 100 mls @ 100 mls/min 08/22/24 05:34 Albuminar-25 Ivpb IV PRN PRN DIALYSIS Insulin Human Lispro 0 unit 08/29/24 07:30 08/30/24 08:50 Insulin Lispro (Admelog) 1 Unit/0.01 Ml Unit SC 09/28/24 07:29 2 unit AC [facility] Administration Protocol Magnesium Hydroxide 30 ml 08/21/24 23:37 Milk Of Magnesia Susp 30 Ml Udc PO 09/20/24 23:36 QDAY PRN CONSTIPATION Midodrine 5 mg 08/28/24 22:00 08/30/24 05:07 Midodrine 5 Mg Tablet PO 09/27/24 21:59 Not Given TID [facility] Pharmacy Consult 1 each 08/23/24 08:21 Pharmacy To Consult Patient XX 09/22/24 08:20 PRN PRN Starting 24Hr Continuous/Intermittent Dialysis Sodium Chloride 3 ml 08/22/24 14:07 08/25/24 15:03 Sodium Chloride Rt Jing 0.9% 3 Ml Nebu INH 09/21/24 14:06 3 ml PRN PRN Administration SOLN Plan Patient is a 64-year-old male past medical history of HFrEF (EF 10-15%), ischemic cardiomyopathy, CKD IIIb, CAD s/p stents, atrial fibrillation, NSVT, hypertension, hyperlipidemia, IDDM2, and bilateral BKAs who was admitted to the ICU for cardiogenic shock and acute on chronic renal failure requiring vasopressor support and CRRT. Patient was noted to have severe bradycardia in 40s both in ED and en route to ED, given atropine x2 however bradycardia did not resolve, external pacing was initiated. Cardiology team consulted for severe bradycardia in setting of hyperkalemia 7.5. 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 Atropine x2 did not improve bradycardia, external pacing initiated. - Echo (May 2024): EF 10-15% with severe systolic dysfunction. Grade III DD with akinetic apex with severe global hypokinesis - Echo (Aug 2024): EF 40% with anteroseptal akinesis with moderate LV dysfunction. - Monitor electrolytes, goal of K > 4 and Magnesium > 2 - Bradycardia likely caused by hyperkalemia - Given history of atrial fibrillation and NSVT, advise resuming amiodarone. For concerns of bradycardia, advise 200mg amiodarone qday (reduced from patient's home BID dose). Given bradycardia and hypotension concerns, agree with holding home metoprolol for now until clinical status improves - If patient continues dialysis outpatient, may consider adding spironolactone to regimen - ICD no longer considered as patient's EF has been noted to improve between May 2024 and Aug 2024. Previously was contraindicated due to NYHA Class IV with drug-refractory CHF and survival prognosis < 6 months, these reasons are no longer applicable. - Carvedilol 3.125 mg BID started - Midodrine reduced dose to 5mg TID if blood pressure allow, MAP goal of ~ 70+. Continue midodrine for now - Will gradually begin GDMT as vitals allow, will plan to initiate ARB in outpatient setting - Currently in sinus rhythm, rate controlled on low-dose beta-yesika, continue amiodarone 200 mg daily, carvedilol 3.125 mg twice daily, reasonable to continue midodrine on discharge, can be discharged from cardiology standpoint, follow-up with straddle truck operator outpatient within 2 weeks of discharge. #JADIEL on CKD?on CRRT #Hyperkalemia #Lactic acidosis #History of osteomyelitis status post BKA - Management per primary team Case discussed with straddle truck operator Dr Marcus Robledo PGY2
[2024-08-30] MEDS: POTASSIUM CHLORIDE 20 mEq TABCR PO (12:52)
--- NOTE | 2024-08-30 12:58 | ESPR_ITS ---
Documentation for date of: 08/30/24 Subjective Subjective Interval history: Patient seen and examined this morning with at bedside. No acute overnight events. Vitals, labs, stable. Patient has not needed midodrine over the past day, will continue to monitor VS and consider changing KENNY to PRN. Patient made approximately 100 cc of urine output, and will continue with HD 2 times per week. Pending hepatitis B core antibody and outpatient dialysis chair. Patient appears in a better mood and encouraged him to increase his dietary intake. Recommended to bring low-salt diet from home if patient is not eating at the hospital. Exam Vital Signs Temp Pulse Resp BP Pulse Ox O2 Del Method O2 Flow Rate 97.7 F 62 17 124/63 95 Room Air 2 08/30/24 12:00 08/30/24 12:00 08/30/24 12:00 08/30/24 12:00 08/30/24 12:00 08/30/24 12:00 08/28/24 08:00 Narrative Exam GENERAL: A&Ox3 . awake, ill appearing elderly male NEURO: no focal neurological deficits HEENT: Atraumatic, Normocephalic. mucous membranes moist. Eyes open, symmetrical, & clear, tunneled dialysis cath in place, dressing clean and dry HEART: Normal Heart Sounds LUNGS: Clear to auscultation with no wheezing or crackles. ABDOMEN: soft, non-distended, non-tender, bowel sounds heard, no guarding or rebound tenderness SKIN: No Rash or ecchymoses EXTREMITIES: bilateral BKA, amputation of the digits 3,4,5 of the right hand Objective Labs 08/30/24 05:00 08/30/24 05:00 Labs: Laboratory Results - last 24 hr 08/30/24 05:00 WBC 7.0 RBC 3.37 L Hgb 9.1 L Hct 28.2 L MCV 84 MCH 27.0 MCHC 32.3 RDW Std Deviation 58.4 H Plt Count 120 L D Neut % (Auto) 55 Lymph % (Auto) 24 Banner % (Auto) 13 H Eos % (Auto) 5 Baso % (Auto) 1 Neut # (Auto) 3.8 Lymph # (Auto) 1.7 Banner # (Auto) 0.9 H Eos # (Auto) 0.4 Baso # (Auto) 0.0 Immature Gran # (Auto) 0.18 H Absolute Nucleated RBC 0.00 Immature Gran % 3 H Nucleated RBC % 0 Sodium 138 Potassium 3.1 L Chloride 98 Carbon Dioxide 31.5 H Anion Gap 9 BUN 23 Creatinine 2.0 H D Estim Creat Clear Calc 30.4 L eGFR 36 L BUN/Creatinine Ratio 12 Glucose 204 H D Calculated Osmolality 285 Calcium 8.5 Corrected Calcium 9.5 Phosphorus 1.5 L Magnesium 1.8 Total Bilirubin 0.3 AST 10 ALT 16 Alkaline Phosphatase 68 Total Protein 5.2 L Albumin 2.8 L Globulin 2.4 Albumin/Globulin Ratio 1.2 ABG Interpretation ABG results: 08/21/24 08/21/24 08/22/24 20:24 23:24 04:35 ABG pH 7.26 L ABG pCO2 31 L ABG pO2 92 ABG HCO3 14 L ABG O2 Saturation 97 ABG Base Excess -12 L VBG pH 7.32 L 7.22 L VBG pCO2 30 L 35 L VBG pO2 66 H 85 H VBG Base Excess -10 L -12 L 08/24/24 08:40 ABG pH ABG pCO2 ABG pO2 ABG HCO3 ABG O2 Saturation ABG Base Excess VBG pH 7.36 VBG pCO2 31 L VBG pO2 80 H VBG Base Excess -8 L Quality Measures Quality Measures none Advance care planning discussed with:: patient and spouse Assessment & Plan Assessment Current Active Medications: Generic Name Dose Route Start Last Admin Trade Name Freq PRN Reason Stop Dose Admin Acetaminophen 650 mg 08/21/24 23:37 Acetaminophen 325 Mg Tablet PO 09/20/24 23:36 Q4HR PRN PAIN SCALE 1-3 (mild Acetaminophen 650 mg 08/21/24 23:37 Acetaminophen Supp 650 Mg Supp RI 09/20/24 23:36 Q4HR PRN PAIN SCALE 1-3 (mild Al Hydrox/Mg Hydrox/Simethicone 30 ml 08/22/24 00:31 Mg Hyd/Al Hyd/Stephy (Maalox Reg) Susp 30 Ml Udc PO 09/20/24 23:36 Q4HR PRN Heartburn or Upset Stomach Albuterol 2.5 mg 08/26/24 15:00 08/30/24 07:36 Albuterol Rt 2.5 Mg/0.5 Ml Nebu INH 09/25/24 14:59 2.5 mg Q8HRRT KENNY Administration Amiodarone HCl 200 mg 08/24/24 15:00 08/30/24 08:50 Amiodarone Hcl 200 Mg Tablet PO 09/23/24 14:59 200 mg QDAY KENNY Administration Carvedilol 3.125 mg 08/28/24 17:30 08/30/24 08:50 Carvedilol 3.125 Mg Tablet PO 09/27/24 17:29 3.125 mg BIDWM KENNY Administration Citric Acid/Sodium Citrate 30 ml 08/24/24 21:00 08/30/24 08:50 Citric Acid/Sodium Citr 15 Ml Udc (Bicitra) PO 09/23/24 20:59 30 ml BID KENNY Administration Dextrose 25 ml 08/22/24 04:20 08/22/24 11:43 Dextrose 50%-Water Inj 50 Ml Syringe IV 09/21/24 04:19 25 ml Q15MIN PRN Administration BG 50-70 responsive npo pt Dextrose 50 ml 08/22/24 04:20 Dextrose 50%-Water Inj 50 Ml Syringe IV 09/21/24 04:19 Q15MIN PRN BG <50 OR BG <70 & pt unresponsive Ferrous Sulfate 325 mg 08/24/24 08:30 08/30/24 08:50 Ferrous Sulf 325 Mg Tablet PO 09/23/24 08:29 325 mg QOD KENNY Administration Heparin Sodium (Porcine) 3,500 unit 08/27/24 15:36 08/29/24 12:14 Heparin Sod Inj 1000 Unit/Ml Vial 10 Ml INDWELLCAT 09/10/24 15:35 3,500 unit PRN PRN Administration DIALYSIS Albumin Human 25 gm in 100 mls @ 100 mls/min 08/22/24 05:34 Albuminar-25 Ivpb IV PRN PRN DIALYSIS Insulin Human Lispro 0 unit 08/29/24 07:30 08/30/24 12:54 Insulin Lispro (Admelog) 1 Unit/0.01 Ml Unit SC 09/28/24 07:29 2 unit AC KENNY Administration Protocol Magnesium Hydroxide 30 ml 08/21/24 23:37 Milk Of Magnesia Susp 30 Ml Udc PO 09/20/24 23:36 QDAY PRN CONSTIPATION Midodrine 5 mg 08/28/24 22:00 08/30/24 05:07 Midodrine 5 Mg Tablet PO 09/27/24 21:59 Not Given TID [facility] Pharmacy Consult 1 each 08/23/24 08:21 Pharmacy To Consult Patient XX 09/22/24 08:20 PRN PRN Starting 24Hr Continuous/Intermittent Dialysis Sodium Chloride 3 ml 08/22/24 14:07 08/25/24 15:03 Sodium Chloride Rt Jing 0.9% 3 Ml Nebu INH 09/21/24 14:06 3 ml PRN PRN Administration SOLN Plan Mr. Galdamez is a 64-year-old male with a past medical history of hypertension, hyperlipidemia, CKD stage IIIb, diabetes, bilateral BKA's, A-fib, CAD status post stent, HFrEF with ejection fraction 10 to 15% who presented to the ED on 08/21/2024 from [facility] with altered mental status and generalized weakness. #ESRD #New onset hemodialysis post tunneled dialysis catheter, 08/26 #Worsening JADIEL on CKD required CRRT, off CRRT #Lactic acidosis -improved #Hyperkalemia - resolved -creatinine on admission 6.3, GFR 9, lactic acid 5.1, potassium on admission 7.5 -During this ICU admission pt is started on CRRT -Pt underwent permanent tunneled dialysis catheter, per nephrology recs pt will need to undergo HD dialysis 2x per week out patient -nephrology following 08/30: Patient makes minimal urine at this time, approximately 100 cc / 24 hours. Will continue with HD twice weekly. Pending hepatitis B core antibody and outpatient chair time. Anticipate HBcAb to return on Sunday as it was a send out. #Acute blood loss anemia #Iron deficiency anemia -Morning labs Hgb 6.6 and 1 unit transfused -source of bleeding is yet to be determined, upper vs. lower GI, Pt also developed ESRD could be due to decrease erythropoitin -Iron panel: Iron 42, TIBC 235, Iron sat 17 and unsat Iron binding 193 -FOBT negative -Pt receive EPO with dialysis, which has stabilized Hgb #UTI, resolved #hematuria #pyuria -Urinalysis is positive for leukocyte esterace, urine rbc 5180, urine wbc 1928 -urine culture show no growth -Patient completed 7-day course of Rocephin #Cardiogenic shock- resolved #symptomatic bradycardia 2/2 to hyperkalemia #HFrEF (10-15%) => improved to 40% -On admission pt was found to have bradycardia with HR in 40's, atropine x2 was given in the ED -Due to hypotension with BP of 77/55 and MAP <65, pt was started on levophed and dopamine drips, eventually weaned off on 08/24 -Per cardiology- ICD not indicated in patient for following reasons: Patient has NYHA Class IV with drug-refractory CHF, reasonable expectation of survival with an acceptable functional status < 6 months -Per cardiology, patient currently not a candidate for surgical intervention -On discharge, patient will benefit from GDMT optimized with Entresto if blood pressure tolerates. Currently BP is too soft to start GDMT, pt will need to follow up outpatient cardiology -Repeat echo results : Anteroseptal akinesis with moderate LV dysfunction approximate ejection fraction is 40%. Normal RV function normal PA pressure Mild to moderate mitral regurgitation Moderate TR -Cardio following -Started Coreg 3.25mg BID (parameters hold if SBP <100, HR <50, MAP <65) 08/30: Will change midodrine to as needed as patient's BP has been much improved #history of A-fib -Pt has history of a-fib and home meds include metoprolol, amiodarone and eliquis. metoprolol and eliquis -currently on hold due to bradycardia and acute blood loss anemia CHADVAS score 3 and MELDs score 17 -Pt is in sinus rhythm and will resume meds when able -resumed amiodarone Qday #insulin dependent Type 2 diabetes, uncontrolled #Hx of osteomylitis s/p bilaterally BKA -A1c 10.2 -Pt home medications include glargine 15 units BID -insulin sliding scale started -hypoglycemic protocol in place -Pt underwent bilateral BKA due to long standing uncontrolled T2DM #Transiminitis - resolved -On admission AST and ALT mildy elevated, T. bili and ALP with in normal range. => likely secondary to shock Health Maintenance Disposition: telemetry DVT Prophylaxis: Heparin DC'ed due to dec in platelets; reevaluate in A.M. GI Prophylaxis: not indicated Diet: regular diet plus ensure Lines: Peripheral lines Code status: DNR Patient seen and care discussed with my attending Dr. Castro. Jasiel Aggarwal MD PGY-3 Attending Provider Attestation/Addendum I have discussed and was present for the essential components of the history, physical examination, diagnosis, and treatment plan with the resident. I agree with the patient's care as documented by the resident and amended herein by me. Dann Castro DO. Patient seen and evaluated this AM. Vital signs stable, patient afebrile overnight. Hemoglobin stable at 9.1, platelets did drop to 120 today however we will closely monitor. Potassium 3.1, bicarb 31, BUN 23 and creatinine 2.0 today. Hemodialysis chair authorization still pending, will replete electrolytes as necessary and continue to add GDMT as tolerated. Appreciate specialist recommendations. Although this document has been carefully reviewed, there may still be some phonetic and other typographical errors. These errors are purely grammatical due to imperfections in the software program and should not be construed in any way to compromise the substance of the patient's medical care during this visit.
--- NOTE | 2024-08-30 13:35 | PD.RESPRO ---
Documentation for date of: 08/30/24 Subjective Subjective Interval history: Mr. Galdamez is a 64-year-old male with significant past medical history of hypertension, insulin-dependent diabetes mellitus, CAD s/p PCI, HFrEF [EF 10 to 15%], CKD stage III, bilateral below-knee amputations, atrial fibrillation living in halfway facility was brought to the hospital with chief complaints of worsening mentation, shortness of breath and generalized weakness for the past 2 days. Patient was noted to have heart rate dropped to 40s during transit time in the ambulance for which patient was externally paced and 2 doses of atropine was given without response. In the ED, patient was found to have heart rate of 40 with blood pressure of 80/45 mmHg for which cardiology was consulted for suspected AV block. Per tarper, there is no concern for AV block and patient was found to have junctional escape rhythm with underlying atrial fibrillation and recommended to start on Levophed and low-dose dopamine. Patient was admitted to ICU for further care. Also noted patient had decreased p.o. intake 2 days before the day of admission and abdominal discomfort. ED Course: -Initial vitals were blood pressure 111/58 mmHg, SpO2 79% with 15 L oxygen -Labs significant for Hb 8.3, potassium 7.5, bicarb 14, anion gap 19, BUN 85, creatinine 6.2, lactate 7. Urine analysis showed 5000 RBC and 2000 WBC. -Head CT was negative for acute hemorrhage and infarct. -Patient was admitted for shock requiring vasopressors Nephrology was consulted for acute on chronic kidney injury. 08/26/2024 Patient was seen and examined bedside in the telemetry. Patient denies any other complaints. No acute overnight events. Patient is still oliguric. Vitals are stable. Labs showed hemoglobin 6.6, BUN 18, creatinine 2.2 Patient received HD yesterday. Patient is scheduled for tunneled dialysis catheter tomorrow as his renal functions are not improving Patient may require dialysis sessions for few more weeks till the kidney functions come back to its baseline. Explained about his current condition to him and his family at the bedside Recommended to remove the Prather catheter and monitor urine output 08/27/2024 Patient is seen and examined bedside No acute overnight events. Denies any other complaints Still oliguric. Labs showed uptrending Creatinine. will continue 2 HD sessions/ week till the renal functions come back to his normal baseline 08/28/2024 The patient is seen and examined by bedside No acute overnight events. Denies any other complaints. Vitals all stable. Patient is still oliguric. Labs showed sodium 138, potassium 3.2, creatinine 2.1, BUN 15 Recommended to continue dialysis 2 times in a week till patient produces adequate urine output. 08/29/2024 Patient is seen and examined at bedside in the dialysis unit No acute overnight events. Patient denies any other complaints Vitals are stable. Patient is tolerating hemodialysis well Patient still found to be oliguric. Labs showed sodium 138, potassium 3.2, BUN 30, creatinine 2.8 Patient is pending for dialysis chair placement. Will continue dialysis twice in a week tell patient's kidney functions come back to his baseline and able to produce adequate amount of urine 08/30/2024 Patient is seen and examined with at interventions from our side they have any questions bedside No acute overnight events and patient denies any other complaints Vitals are stable. Patient still appears to be oliguric Labs showed BUN 23, creatinine 2 Pending dialysis chair placement. Exam Vital Signs Temp Pulse Resp BP Pulse Ox O2 Del Method O2 Flow Rate 97.7 F 62 17 124/63 95 Room Air 2 08/30/24 12:00 08/30/24 12:00 08/30/24 12:00 08/30/24 12:00 08/30/24 12:00 08/30/24 12:00 08/28/24 08:00 Narrative Exam General: Awake. Lying comfortably on the bed HEENT: Normocephalic, atraumatic, mucous membranes moist. Heart: Regular rate and rhythm, no murmurs. Lungs: Clear to auscultation with no wheezing or crackles. Abdomen: Soft, nondistended, nontender, positive bowel sounds. ?No guarding or rebound tenderness. Neurologic: Alert and oriented x3, no gross neurological deficit, and patient able to move all 4 extremities. Extremities: No edema. 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 B/L BKA Skin: No rash or ecchymoses. Objective Labs 08/31/24 04:48 08/31/24 04:48 Labs: Laboratory Results - last 24 hr 08/30/24 05:00 WBC 7.0 RBC 3.37 L Hgb 9.1 L Hct 28.2 L MCV 84 MCH 27.0 MCHC 32.3 RDW Std Deviation 58.4 H Plt Count 120 L D Neut % (Auto) 55 Lymph % (Auto) 24 Ford % (Auto) 13 H Eos % (Auto) 5 Baso % (Auto) 1 Neut # (Auto) 3.8 Lymph # (Auto) 1.7 Ford # (Auto) 0.9 H Eos # (Auto) 0.4 Baso # (Auto) 0.0 Immature Gran # (Auto) 0.18 H Absolute Nucleated RBC 0.00 Immature Gran % 3 H Nucleated RBC % 0 Sodium 138 Potassium 3.1 L Chloride 98 Carbon Dioxide 31.5 H Anion Gap 9 BUN 23 Creatinine 2.0 H D Estim Creat Clear Calc 30.4 L eGFR 36 L BUN/Creatinine Ratio 12 Glucose 204 H D Calculated Osmolality 285 Calcium 8.5 Corrected Calcium 9.5 Phosphorus 1.5 L Magnesium 1.8 Total Bilirubin 0.3 AST 10 ALT 16 Alkaline Phosphatase 68 Total Protein 5.2 L Albumin 2.8 L Globulin 2.4 Albumin/Globulin Ratio 1.2 ABG Interpretation ABG results: 08/21/24 08/21/24 08/22/24 20:24 23:24 04:35 ABG pH 7.26 L ABG pCO2 31 L ABG pO2 92 ABG HCO3 14 L ABG O2 Saturation 97 ABG Base Excess -12 L VBG pH 7.32 L 7.22 L VBG pCO2 30 L 35 L VBG pO2 66 H 85 H VBG Base Excess -10 L -12 L 08/24/24 08:40 ABG pH ABG pCO2 ABG pO2 ABG HCO3 ABG O2 Saturation ABG Base Excess VBG pH 7.36 VBG pCO2 31 L VBG pO2 80 H VBG Base Excess -8 L Quality Measures Quality Measures none Advance care planning discussed with:: patient and spouse Assessment & Plan Assessment Current Active Medications: Generic Name Dose Route Start Last Admin Trade Name Freq PRN Reason Stop Dose Admin Acetaminophen 650 mg 08/21/24 23:37 Acetaminophen 325 Mg Tablet PO 09/20/24 23:36 Q4HR PRN PAIN SCALE 1-3 (mild Acetaminophen 650 mg 08/21/24 23:37 Acetaminophen Supp 650 Mg Supp VT 09/20/24 23:36 Q4HR PRN PAIN SCALE 1-3 (mild Al Hydrox/Mg Hydrox/Simethicone 30 ml 08/22/24 00:31 Mg Hyd/Al Hyd/Stephy (Maalox Reg) Susp 30 Ml Udc PO 09/20/24 23:36 Q4HR PRN Heartburn or Upset Stomach Albuterol 2.5 mg 08/26/24 15:00 08/30/24 07:36 Albuterol Rt 2.5 Mg/0.5 Ml Nebu INH 09/25/24 14:59 2.5 mg Q8HRRT KENNY Administration Amiodarone HCl 200 mg 08/24/24 15:00 08/30/24 08:50 Amiodarone Hcl 200 Mg Tablet PO 09/23/24 14:59 200 mg QDAY KENNY Administration Carvedilol 3.125 mg 08/28/24 17:30 08/30/24 08:50 Carvedilol 3.125 Mg Tablet PO 09/27/24 17:29 3.125 mg BIDWM KENNY Administration Citric Acid/Sodium Citrate 30 ml 08/24/24 21:00 08/30/24 08:50 Citric Acid/Sodium Citr 15 Ml Udc (Bicitra) PO 09/23/24 20:59 30 ml BID KENNY Administration Dextrose 25 ml 08/22/24 04:20 08/22/24 11:43 Dextrose 50%-Water Inj 50 Ml Syringe IV 09/21/24 04:19 25 ml Q15MIN PRN Administration BG 50-70 responsive npo pt Dextrose 50 ml 08/22/24 04:20 Dextrose 50%-Water Inj 50 Ml Syringe IV 09/21/24 04:19 Q15MIN PRN BG <50 OR BG <70 & pt unresponsive Ferrous Sulfate 325 mg 08/24/24 08:30 08/30/24 08:50 Ferrous Sulf 325 Mg Tablet PO 09/23/24 08:29 325 mg QOD KENNY Administration Heparin Sodium (Porcine) 3,500 unit 08/27/24 15:36 08/29/24 12:14 Heparin Sod Inj 1000 Unit/Ml Vial 10 Ml INDWELLCAT 09/10/24 15:35 3,500 unit PRN PRN Administration DIALYSIS Albumin Human 25 gm in 100 mls @ 100 mls/min 08/22/24 05:34 Albuminar-25 Ivpb IV PRN PRN DIALYSIS Insulin Human Lispro 0 unit 08/29/24 07:30 08/30/24 12:54 Insulin Lispro (Admelog) 1 Unit/0.01 Ml Unit SC 09/28/24 07:29 2 unit AC KENNY Administration Protocol Magnesium Hydroxide 30 ml 08/21/24 23:37 Milk Of Magnesia Susp 30 Ml Udc PO 09/20/24 23:36 QDAY PRN CONSTIPATION Midodrine 5 mg 08/30/24 13:24 Midodrine 5 Mg Tablet PO 09/27/24 21:59 TID PRN SBP < 100 or MAP < 65 Pharmacy Consult 1 each 08/23/24 08:21 Pharmacy To Consult Patient XX 09/22/24 08:20 PRN PRN Starting 24Hr Continuous/Intermittent Dialysis Sodium Chloride 3 ml 08/22/24 14:07 08/25/24 15:03 Sodium Chloride Rt Jing 0.9% 3 Ml Nebu INH 09/21/24 14:06 3 ml PRN PRN Administration SOLN Plan A 64-year-old male with significant past medical history of hypertension, insulin-dependent diabetes mellitus, CAD s/p PCI, HFrEF [EF 10 to 15%], CKD stage III, bilateral below-knee amputations, atrial fibrillation living in halfway facility was brought to the hospital with chief complaints of worsening mentation, shortness of breath and generalized weakness for the past 2 days. # Acute on chronic kidney disease, stage IIIb Likely prerenal versus ATN in the setting of shock -Patient presented to the hospital with the complaints of shortness of breath worsening mentation and per patient's patient had abdominal pain and foul-smelling urine. -Baseline creatinine as of 07/2024 is 2.4 -On the day of admission, 08/21/2024, creatinine is 6.3 > 08/25, BUN 25, Cr 2.8 1 >08/26, BUN 18, Cr 2 >08/28, BUN 15, Cr 2.1 >08/29, BUN 30, Cr 2.8 -Urine analysis showed turbid urine with 2+ proteinuria, 3+ blood, 5180 RBC, 1928 WBC Plan -Patient got CRRT on 08/22 and one more session done on 08/23,HD on 08/26, 08/27, 08/29 -will continue dialysis 2 times per week till patient renal functions come back to his normal baseline and makes adequate amount of urine output -Monitor renal functions and avoid nephrotoxic medications -Continue antibiotics #Hypokalemia -On 08/30/2024, potassium is 3.1, 20mEq of potassium is given -Recommend to monitor electrolytes and replete accordingly. # Hyperkalemia, resolved # Hyperphosphatemia, resolved # Lactic acidosis, resolved -Found to have potassium of 7.5 at the time of admission -Since 08/23/2024, Electrolytes are within normal limits #Acute encephalopathy 2/2 UTI #Chronic right parietal stroke #Shock #Acute hypoxic respiratory failure. #Complicated UTI #Chronic anemia #IDDM #Elevated LFT's To be treated per primary team Thank you for allowing us to involved in the care of the patient Patient plan of care was discussed with the attending physician, Dr. Marian Gates, PGY1 Attending Provider Attestation/Addendum Patient seen and examined with resident physician Dr. Pollard. Note reviewed, agree with findings and recommendations. Patient with sepsis and JADIEL. On broad-spectrum antibiotics. Patient received 2 conventional dialysis treatments and 2 CRRT treatment days. No urine output. I had a long conversation with the patient and he agreed for outpatient dialysis-twice weekly. Outpatient dialysis to be arranged. Hep panel and PPD negative Status post PermCath. Next dialysis scheduled for Sunday. Plan of care discussed with at bedside. Patient more alert and awake and is feeling much better.
[2024-08-30] MEDS: SODIUM CHLORIDE RT SOL 0.9% 3 ML NEBU INH (23:03)
[2024-08-31] VITALS (14 sets, daily range): BP systolic 98–116; BP diastolic 51–69; PULSE 57–93; RESP 15–93; TEMP 36.2–37.2; O2SAT 91–100
[2024-08-31 06:11] LABS: Basophils # (Auto) 0.1 Thou/mm3 (0.0-0.2); Basophils % (Auto) 1 % (0-2.5); Eosinophils # (Auto) 0.3 Thou/mm3 (0.0-0.5); Eosinophils % (Auto) 4 % (0-10); Hematocrit 27.9 % (41.0-53.0); Hemoglobin 8.9 g/dL (13.5-16.0); Immature Granulocytes % (Auto) 3 % (0-0); Lymphocytes # (Auto) 1.5 Thou/mm3 (1.0-4.8); Lymphocytes % (Auto) 22 % (10-50); Mean Corpuscular HGB Conc 31.9 g/dl (31.0-37.0); Mean Corpuscular Hemoglobin 26.6 pg (25.0-35.0); Mean Corpuscular Volume 83 fL (80-100); Monocytes # (Auto) 0.8 Thou/mm3 (0.0-0.8); Monocytes % (Auto) 12 % (0-12); Neutrophils % (Auto) 59 % (37-80); Nucleated Red Blood Cell % 0 /100 WBC (0); Platelet Count 152 Thou/mm3 (140-440); RDW Standard Deviation 58.9 fL (35.1-43.9); Red Blood Count 3.35 Miln/mm3 (4.50-5.90); White Blood Count 6.8 Thou/mm3 (3.8-10.6)
[2024-08-31 06:43] LABS: Alanine Aminotransferase 18 U/L (10-49); Albumin, Serum 2.7 gm/dL (3.4-4.8); Albumin/Globulin Ratio 1.1 (1.2-2.2); Alkaline Phosphatase 66 U/L (46-116); Anion Gap 7 (7-16); Aspartate Amino Transferase 13 U/L (0-34); BUN/Creatinine Ratio 12 Ratio (12-20); Bilirubin,Total 0.3 mg/dL (0.3-1.2); Blood Urea Nitrogen 29 mg/dL (9-23); Carbon Dioxide 31.1 mMol/L (20.0-31.0); Chloride 99 mMol/L (98-107); Creatinine (Component) 2.4 mg/dL (0.6-1.3); Globulin 2.5 gm/dL (2.3-3.5); Glucose 206 mg/dL (74-106); Magnesium 1.6 mg/dL (1.6-2.6); Osmolality,Calculated 285 (275-295); Phosphorous 1.4 mg/dL (2.4-5.1); Potassium 3.2 mMol/L (3.4-5.1); Sodium 137 mMol/L (136-145); Total Protein 5.2 gm/dL (5.7-8.2); eGFR 29 See Note
[2024-08-31] MEDS: ALBUTEROL RT 2.5 MG/0.5 ML NEBU INH ×3 (07:05→22:17)
[2024-08-31] MEDS: CITRIC ACID/SODIUM CITR 15 ML UDC (BICITRA) 30 ML PO ×2 (08:12→20:10)
[2024-08-31] MEDS: AMIODARONE HCL 200 MG TABLET PO (08:13)
[2024-08-31] MEDS: carVEDILOL 3.125 MG TABLET PO (08:13)
[2024-08-31] MEDS: INSULIN LISPRO (AdmeLOG) 1 UNIT/0.01 ML UNIT SC ×3 (08:14→18:03)
--- NOTE | 2024-08-31 10:23 | PD.NEPHPROG ---
Documentation for date of: 08/31/24 Subjective Subjective Interval history: Mr. Galdamez is a 64-year-old male with significant past medical history of hypertension, insulin-dependent diabetes mellitus, CAD s/p PCI, HFrEF [EF 10 to 15%], CKD stage III, bilateral below-knee amputations, atrial fibrillation living [facility] was brought to the hospital with chief complaints of worsening mentation, shortness of breath and generalized weakness for the past 2 days. Patient was noted to have heart rate dropped to 40s during transit time in the ambulance for which patient was externally paced and 2 doses of atropine was given without response. In the ED, patient was found to have heart rate of 40 with blood pressure of 80/45 mmHg for which cardiology was consulted for suspected AV block. Per polymerization oven operator, there is no concern for AV block and patient was found to have junctional escape rhythm with underlying atrial fibrillation and recommended to start on Levophed and low-dose dopamine. Patient was admitted to ICU for further care. Also noted patient had decreased p.o. intake 2 days before the day of admission and abdominal discomfort. ED Course: -Initial vitals were blood pressure 111/58 mmHg, SpO2 79% with 15 L oxygen -Labs significant for Hb 8.3, potassium 7.5, bicarb 14, anion gap 19, BUN 85, creatinine 6.2, lactate 7. Urine analysis showed 5000 RBC and 2000 WBC. -Head CT was negative for acute hemorrhage and infarct. -Patient was admitted for shock requiring vasopressors Nephrology was consulted for acute on chronic kidney injury. Overnight patient received 2 hours of conventional hemo-dialysis session due to metabolic acidosis and hyperkalemia. Decided to proceed with CRRT as patient currently on pressors. 08/31/2024 patient currently seen in medical floor. Received 2 CRRT sessions and subsequently on conventional dialysis. Last dialysis Sunday. Moved out of ICU. Feeling much better today. Review of Systems Review of Systems Narrative Review of Systems: CONSTITUTIONAL: Patient denies any fever, chills. HEENT: Denies any visual disturbances or hearing problems. CARDIOVASCULAR: Patient denies any chest pain, shortness of breath, swelling in the lower extremities. PULMONARY: Patient denies any shortness of breath, cough. GASTROINTESTINAL: Patient denies any abdominal pain, constipation, nausea, vomiting, diarrhea. GENITOURINARY: Patient denies any urinary symptoms of burning or frequency or hematuria, denies any form in the urine. SKIN: Denies any rash. MUSCULOSKELETAL: Gait imbalance, bilateral BKA NEUROLOGICAL: Denies any neurological problems of strokes, seizures or confusion. Denies any memory problems. PSYCHIATRIC: Denies any depression or anxiety. LYMPHATICS : No lymphadenopathy Exam Vital Signs Temp Pulse Resp BP Pulse Ox O2 Del Method O2 Flow Rate 36.7 C 60 18 116/68 94 L Room Air 2 08/31/24 08:00 08/31/24 08:13 08/31/24 08:00 08/31/24 08:13 08/31/24 08:00 08/31/24 08:00 08/28/24 08:00 Narrative Exam GENERAL APPEARANCE: Patient seems to be comfortable, adequately hydrated and nourished. HEENT: EOMI, PERRLA NECK: Neck supple, no JVD or bruit CARDIOVASCULAR: Heart regular, no murmurs LUNGS/CHEST: Chest clear to auscultation. No rales, rhonchi, wheezing ABDOMEN: Soft, nontender, nondistended. No masses. Normal bowel sounds. EXTREMITIES: No edema, clubbing or cyanosis. SKIN: Skin exam normal without any rashes. IJ dialysis catheter MUSCULOSKELETAL: Bilateral BKA NEUROLOGICAL : No neurological deficits Objective Labs 09/02/24 05:10 09/02/24 05:10 Labs: Laboratory Results - last 24 hr 08/31/24 04:48 WBC 6.8 RBC 3.35 L Hgb 8.9 L Hct 27.9 L MCV 83 MCH 26.6 MCHC 31.9 RDW Std Deviation 58.9 H Plt Count 152 D Neut % (Auto) 59 Lymph % (Auto) 22 [place] % (Auto) 12 Eos % (Auto) 4 Baso % (Auto) 1 Neut # (Auto) 4.0 Lymph # (Auto) 1.5 [place] # (Auto) 0.8 Eos # (Auto) 0.3 Baso # (Auto) 0.1 Immature Gran # (Auto) 0.20 H Absolute Nucleated RBC 0.00 Immature Gran % 3 H Nucleated RBC % 0 Sodium 137 Potassium 3.2 L Chloride 99 Carbon Dioxide 31.1 H Anion Gap 7 BUN 29 H Creatinine 2.4 H Estim Creat Clear Calc 26.0 L eGFR 29 L BUN/Creatinine Ratio 12 Glucose 206 H Calculated Osmolality 285 Calcium 8.0 L Corrected Calcium 9.0 Phosphorus 1.4 L Magnesium 1.6 Total Bilirubin 0.3 AST 13 ALT 18 Alkaline Phosphatase 66 Total Protein 5.2 L Albumin 2.7 L Globulin 2.5 Albumin/Globulin Ratio 1.1 L ABG Interpretation ABG results: 08/21/24 08/21/24 08/22/24 20:24 23:24 04:35 ABG pH 7.26 L ABG pCO2 31 L ABG pO2 92 ABG HCO3 14 L ABG O2 Saturation 97 ABG Base Excess -12 L VBG pH 7.32 L 7.22 L VBG pCO2 30 L 35 L VBG pO2 66 H 85 H VBG Base Excess -10 L -12 L 08/24/24 08:40 ABG pH ABG pCO2 ABG pO2 ABG HCO3 ABG O2 Saturation ABG Base Excess VBG pH 7.36 VBG pCO2 31 L VBG pO2 80 H VBG Base Excess -8 L Assessment & Plan Additional Assessment & Plan Additional Plan: 64-year-old male with significant past medical history of hypertension, insulin-dependent diabetes mellitus, CAD s/p PCI, HFrEF [EF 10 to 15%], CKD stage III, bilateral below-knee amputations, atrial fibrillation [facility] was brought to the hospital with chief complaints of worsening mentation, shortness of breath and generalized weakness for the past 2 days. # Acute on chronic kidney disease, stage IIIb Likely prerenal versus ATN in the setting of shock -Patient presented to the hospital with the complaints of shortness of breath worsening mentation and per patient's patient had abdominal pain and foul-smelling urine. -Baseline creatinine as of 07/2024 is 2.4 -On the day of admission, 08/21/2024, creatinine is 6.3 -Urine analysis showed turbid urine with 2+ proteinuria, 3+ blood, 5180 RBC, 1928 WBC Plan -Patient got CRRT on 08/22 , 08/23 --subsequently on intermittent hemodialysis. Status post PermCath. Pending outpatient dialysis arrangements. Suspect patient in ATN -Monitor renal functions and avoid nephrotoxic medications -Continue antibiotics Next dialysis scheduled for tomorrow # Hyperkalemia, resolved # Hyperphosphatemia, resolved # Lactic acidosis, resolved Marked improvement with CRRT #Chronic right parietal stroke #Complicated UTI #Chronic anemia #IDDM #Elevated LFT's Per primary team Procedures Arterial Line Size (Gauge): 18
[2024-08-31] MEDS: Magnesium Sulfate 4 GM Ivpb 4 GM/50 ML BAG IV (11:40)
[2024-08-31] MEDS: NAPH,KPH MBDB 1 PACKET (1.5 GM) 2 PACKET PO (11:40)
--- NOTE | 2024-08-31 16:16 | ESPR_ITS ---
RE: RAFA SIDDIQI : 1960 DATE OF SERVICE: 08/31/2024 SUBJECTIVE: Rafa Siddiqi is a 64-year-old male admitted to the hospital with severe bradycardia, hyperkalemia, acute renal failure, chronic kidney disease, undergoing dialysis. His HFrEF, low ejection fraction improved to 40% this time, tolerating medical management well. No A-Fib episodes. He has had A-Fib and VT episodes in the past with low ejection fraction. His examination today is stable. Clinically not having chest pain, shortness of breath. OBJECTIVE: Vital Signs: Blood pressure 103/53, pulse 60, respirations 16. Temperature normal. Neck: Supple. Lung: Decreased breath sounds, no rales heard. Heart: S1, S2 regular. S4 gallop heard. Abdomen: Thin and soft. Extremities: Evidence of bilateral [id number] amputation. LABORATORY DATA: Showed hemoglobin 8.9, stable. Creatinine is at 2.4, BUN 29. The patient undergoing dialysis, potassium slightly low 3.2. IMPRESSION: 1. Ischemic cardiomyopathy, chronic systolic heart failure, well compensated. 2. Paroxysmal A-fib, now in sinus rhythm, on amiodarone. 3. Chronic kidney disease, acute renal failure, on hemodialysis. 4. Status post bilateral qjndr-fwm-liqu amputation. RECOMMENDATIONS: 1. Continue present medications. He is tolerating continued amiodarone 200 mg once a day, carvedilol low dose has also been tolerating 3.125 b.i.d. and midodrine low dose to keep the blood pressure systolic at least 100 and main arterial pressure about 60 or above. DT: 12:43:49 TT: 16:02:00 Ref: [id number] - TID: [id number]
--- NOTE | 2024-08-31 17:31 | ESPR_ITS ---
<Statement entered by Harjinder Neville MD - 08/31/24 23:26> Patient was seen and examined at the bedside. No acute overnight events reported. Vitals were stable. Patient had no active concerns. Hemoglobin stable at 8.9. Electrolyte panel showed borderline hypokalemia and kidney functions consistent with ESRD. Patient will be getting scheduled dialysis tomorrow morning. Hepatitis B core total antibody still pending. Awaiting outpatient dialysis set up likely tomorrow morning. All labs and orders were reviewed. I saw and examined the patient, and I agree with current management stated by Dr Gabe MD,PGY1. Plan of care was discussed with the attending physician and resident physician. Disclaimer: Despite multiple revisions, due to the dictation software being used, the document bellow may not be free of grammatical errors including phonetic/typographic errors. However, this does not deter from our commitment to providing health care in the patient's best interest in mind. Dr. Kimberli MD, PGY 2 Documentation for date of: 08/31/24 Subjective Subjective Interval history: no acute overnight events, Pt is seen and examined at bedside. Pt is resting comfortable, saturating on room air. Pt ate approximately 15% of his breakfast, encouraged the pt to increase oral intake. vitals are stable, significant labs include hgb stable at 8.9 hct 27.9, BUN 29, Cr 2.4. Pt is still waiting for insurance authorization for outpatient dialysis chair 2x a week. Exam Vital Signs Temp Pulse Resp BP Pulse Ox O2 Del Method O2 Flow Rate 98.9 F 60 15 98/51 L 95 Room Air 2 08/31/24 16:00 08/31/24 16:00 08/31/24 16:00 08/31/24 16:00 08/31/24 16:00 08/31/24 16:00 08/28/24 08:00 Narrative Exam GENERAL: A&Ox3 . awake, elderly male in pleasant NEURO: no focal neurological deficits HEENT: Atraumatic, Normocephalic. mucous membranes moist. Eyes open, symmetrical, & clear, tunneled dialysis cath in place, dressing clean and dry HEART: Normal Heart Sounds LUNGS: Clear to auscultation with no wheezing or crackles. ABDOMEN: soft, non-distended, non-tender, bowel sounds heard, no guarding or rebound tenderness SKIN: No Rash or ecchymoses EXTREMITIES: bilateral BKA, amputation of the digits 3,4,5 of the right hand Objective Labs 09/01/24 05:26 09/01/24 05:26 Labs: Laboratory Results - last 24 hr 08/31/24 04:48 WBC 6.8 RBC 3.35 L Hgb 8.9 L Hct 27.9 L MCV 83 MCH 26.6 MCHC 31.9 RDW Std Deviation 58.9 H Plt Count 152 D Neut % (Auto) 59 Lymph % (Auto) 22 [place] % (Auto) 12 Eos % (Auto) 4 Baso % (Auto) 1 Neut # (Auto) 4.0 Lymph # (Auto) 1.5 [place] # (Auto) 0.8 Eos # (Auto) 0.3 Baso # (Auto) 0.1 Immature Gran # (Auto) 0.20 H Absolute Nucleated RBC 0.00 Immature Gran % 3 H Nucleated RBC % 0 Sodium 137 Potassium 3.2 L Chloride 99 Carbon Dioxide 31.1 H Anion Gap 7 BUN 29 H Creatinine 2.4 H Estim Creat Clear Calc 26.0 L eGFR 29 L BUN/Creatinine Ratio 12 Glucose 206 H Calculated Osmolality 285 Calcium 8.0 L Corrected Calcium 9.0 Phosphorus 1.4 L Magnesium 1.6 Total Bilirubin 0.3 AST 13 ALT 18 Alkaline Phosphatase 66 Total Protein 5.2 L Albumin 2.7 L Globulin 2.5 Albumin/Globulin Ratio 1.1 L ABG Interpretation ABG results: 08/21/24 08/21/24 08/22/24 20:24 23:24 04:35 ABG pH 7.26 L ABG pCO2 31 L ABG pO2 92 ABG HCO3 14 L ABG O2 Saturation 97 ABG Base Excess -12 L VBG pH 7.32 L 7.22 L VBG pCO2 30 L 35 L VBG pO2 66 H 85 H VBG Base Excess -10 L -12 L 08/24/24 08:40 ABG pH ABG pCO2 ABG pO2 ABG HCO3 ABG O2 Saturation ABG Base Excess VBG pH 7.36 VBG pCO2 31 L VBG pO2 80 H VBG Base Excess -8 L Quality Measures Quality Measures none Advance care planning discussed with:: patient Assessment & Plan Assessment Current Active Medications: Generic Name Dose Route Start Last Admin Trade Name Freq PRN Reason Stop Dose Admin Acetaminophen 650 mg 08/21/24 23:37 Acetaminophen 325 Mg Tablet PO 04/12/25 23:36 Q4HR PRN PAIN SCALE 1-3 (mild Acetaminophen 650 mg 08/21/24 23:37 Acetaminophen Supp 650 Mg Supp AL 09/20/24 23:36 Q4HR PRN PAIN SCALE 1-3 (mild Al Hydrox/Mg Hydrox/Simethicone 30 ml 08/22/24 00:31 Mg Hyd/Al Hyd/Stephy (Maalox Reg) Susp 30 Ml Udc PO 09/20/24 23:36 Q4HR PRN Heartburn or Upset Stomach Albuterol 2.5 mg 08/26/24 15:00 08/31/24 14:37 Albuterol Rt 2.5 Mg/0.5 Ml Nebu INH 09/25/24 14:59 2.5 mg Q8HRRT KENNY Administration Amiodarone HCl 200 mg 08/24/24 15:00 08/31/24 08:13 Amiodarone Hcl 200 Mg Tablet PO 09/23/24 14:59 200 mg QDAY KENNY Administration Carvedilol 3.125 mg 08/28/24 17:30 08/31/24 08:13 Carvedilol 3.125 Mg Tablet PO 09/27/24 17:29 3.125 mg BIDWM KENNY Administration Citric Acid/Sodium Citrate 30 ml 08/24/24 21:00 08/31/24 08:12 Citric Acid/Sodium Citr 15 Ml Udc (Bicitra) PO 09/23/24 20:59 30 ml BID KENNY Administration Dextrose 25 ml 08/22/24 04:20 08/22/24 11:43 Dextrose 50%-Water Inj 50 Ml Syringe IV 09/21/24 04:19 25 ml Q15MIN PRN Administration BG 50-70 responsive npo pt Dextrose 50 ml 08/22/24 04:20 Dextrose 50%-Water Inj 50 Ml Syringe IV 09/21/24 04:19 Q15MIN PRN BG <50 OR BG <70 & pt unresponsive Ferrous Sulfate 325 mg 08/24/24 08:30 08/30/24 08:50 Ferrous Sulf 325 Mg Tablet PO 09/23/24 08:29 325 mg QOD KENNY Administration Heparin Sodium (Porcine) 3,500 unit 08/27/24 15:36 08/29/24 12:14 Heparin Sod Inj 1000 Unit/Ml Vial 10 Ml INDWELLCAT 09/10/24 15:35 3,500 unit PRN PRN Administration DIALYSIS Albumin Human 25 gm in 100 mls @ 100 mls/min 08/22/24 05:34 Albuminar-25 Ivpb IV PRN PRN DIALYSIS Insulin Human Lispro 0 unit 08/29/24 07:30 08/31/24 12:20 Insulin Lispro (Admelog) 1 Unit/0.01 Ml Unit SC 09/28/24 07:29 3 unit AC KENNY Administration Protocol Magnesium Hydroxide 30 ml 08/21/24 23:37 Milk Of Magnesia Susp 30 Ml Udc PO 09/20/24 23:36 QDAY PRN CONSTIPATION Midodrine 5 mg 08/30/24 13:24 Midodrine 5 Mg Tablet PO 09/27/24 21:59 TID PRN SBP < 100 or MAP < 65 Pharmacy Consult 1 each 08/23/24 08:21 Pharmacy To Consult Patient XX 09/22/24 08:20 PRN PRN Starting 24Hr Continuous/Intermittent Dialysis Sodium Chloride 3 ml 08/22/24 14:07 08/30/24 23:03 Sodium Chloride Rt Jing 0.9% 3 Ml Nebu INH 09/21/24 14:06 3 ml PRN PRN Administration SOLN Plan Mr. Galdamez is a 64-year-old male with a past medical history of hypertension, hyperlipidemia, CKD stage IIIb, diabetes, bilateral BKA's, A-fib, CAD status post stent, HFrEF with ejection fraction 10 to 15% who presented to the ED on 08/21/2024 from [facility] with altered mental status and generalized weakness. #ESRD #New onset hemodialysis post tunneled dialysis catheter, 08/26 # Worsening JADIEL on CKD required CRRT #Lactic acidosis -improved #Hyperkalemia - resolved -creatinine on admission 6.3, GFR 9, lactic acid 5.1, potassium on admission 7.5 -During this ICU admission pt is started on CRRT -Pt underwent permanent tunneled dialysis catheter, per nephrology recs pt will need to undergo HD dialysis 2x per week out patient -nephrology following -Pending insurance authorization for outpatient dialysis #Acute blood loss anemia #Iron deficiency anemia -Morning labs Hgb 6.6 and 1 unit transfused -source of bleeding is yet to be determined, upper vs. lower GI, Pt also developed ESRD could be due to decrease erythropoitin -Iron panel: Iron 42, TIBC 235, Iron sat 17 and unsat Iron binding 193 -FOBT negative -Pt receive EPO with dialysis, which has stabilized Hgb #UTI #hematuria #pyuria -Urinalysis is positive for leukocyte esterace, urine rbc 5180, urine wbc 1928 -urine culture show no growth -Pt is started on ceftriaoxone 08/27- #Cardiogenic shock- resolved #symptomatic bradycardia 2/2 to hyperkalemia #HFrEF (10-15%) -On admission pt was found to have bradycardia with HR in 40's, atropine x2 was given in the ED -Due to hypotension with BP of 77/55 and MAP <65, pt was started on levophed and dopamine drips, eventually weaned off on 08/24 -started on midodrine 10mg Q6HR -Per cardiology- ICD not indicated in patient for following reasons: Patient has NYHA Class IV with drug-refractory CHF, reasonable expectation of survival with an acceptable functional status < 6 months -Per cardiology, patient currently not a candidate for surgical intervention -On discharge, patient will benefit from GDMT optimized with Entresto if blood pressure tolerates. Currently BP is too soft to start GDMT, pt will need to follow up outpatient cardiology -Repeat echo results : Anteroseptal akinesis with moderate LV dysfunction approximate ejection fraction is 40%. Normal RV function normal PA pressure Mild to moderate mitral regurgitation Moderate TR -Cardio following -Started Coreg 3.25mg BID (parameters hold if SBP <100, HR <50, MAP <65) #history of A-fib -Pt has history of a-fib and home meds include metoprolol, amiodarone and eliquis. metoprolol and eliquis -currently on hold due to bradycardia and acute blood loss anemia CHADVAS score 3 and MELDs score 17 -Pt is in sinus rhythm and will resume meds when able -resumed amiodarone Qday #insulin dependent Type 2 diabetes, uncontrolled #Hx of osteomylitis s/p bilaterally BKA -A1c 10.2 -Pt home medications include glargine 15 units BID -insulin sliding scale started -hypoglycemic protocol in place -Pt underwent bilateral BKA due to long standing uncontrolled T2DM #Transiminitis - resolved -On admission AST and ALT mildy elevated, T. bili and ALP with in normal range. -Likely secondary to shock, will continue to monitor as shock has now resolved. Health Maintenance Disposition: telemetry DVT Prophylaxis: Heparin 5000 units SC Q12 hrs GI Prophylaxis: not indicated Diet: regular diet plus ensure Lines: Peripheral lines Code status: DNR Assessment and plan discussed with my senior resident Dr. Neville and attending physician Dr. Matthew Bernal (PGY-1)- Internal medicine resident Attending Provider Attestation/Addendum I have discussed and was present for the essential components of the history, physical examination, diagnosis, and treatment plan with the resident. I agree with the patient's care as documented by the resident and amended herein by me. Dann Castro DO. Patient seen and evaluated this AM. No acute events overnight, insurance authorization for HD chair pending Although this document has been carefully reviewed, there may still be some phonetic and other typographical errors. These errors are purely grammatical due to imperfections in the software program and should not be construed in any way to compromise the substance of the patient's medical care during this visit.
[2024-08-31] MEDS: SODIUM CHLORIDE RT SOL 0.9% 3 ML NEBU INH (22:17)
[2024-09-01] VITALS (27 sets, daily range): BP systolic 94–158; BP diastolic 55–80; PULSE 60–80; RESP 16–19; TEMP 36.1–36.9; O2SAT 92–96; BMI 21.0
[2024-09-01 06:22] LABS: Basophils # (Auto) 0.1 Thou/mm3 (0.0-0.2); Basophils % (Auto) 1 % (0-2.5); Eosinophils # (Auto) 0.3 Thou/mm3 (0.0-0.5); Eosinophils % (Auto) 4 % (0-10); Hematocrit 28.1 % (41.0-53.0); Hemoglobin 9.1 g/dL (13.5-16.0); Immature Granulocytes % (Auto) 3 % (0-0); Immature Granulocytes Auto 0.25 Thou/mm3 (0.00-0.00); Lymphocytes # (Auto) 1.5 Thou/mm3 (1.0-4.8); Lymphocytes % (Auto) 18 % (10-50); Mean Corpuscular HGB Conc 32.4 g/dl (31.0-37.0); Mean Corpuscular Hemoglobin 26.5 pg (25.0-35.0); Mean Corpuscular Volume 82 fL (80-100); Monocytes # (Auto) 0.8 Thou/mm3 (0.0-0.8); Monocytes % (Auto) 10 % (0-12); Neutrophils # (Auto) 5.1 Thou/mm3 (1.8-7.7); Neutrophils % (Auto) 65 % (37-80); Nucleated Red Blood Cell % 0 /100 WBC (0); Platelet Count 172 Thou/mm3 (140-440); RDW Standard Deviation 59.3 fL (35.1-43.9); Red Blood Count 3.44 Miln/mm3 (4.50-5.90); White Blood Count 7.9 Thou/mm3 (3.8-10.6)
[2024-09-01 06:33] LABS: Alanine Aminotransferase 17 U/L (10-49); Albumin, Serum 2.9 gm/dL (3.4-4.8); Albumin/Globulin Ratio 1.2 (1.2-2.2); Alkaline Phosphatase 69 U/L (46-116); Anion Gap 8 (7-16); Aspartate Amino Transferase 13 U/L (0-34); BUN/Creatinine Ratio 14 Ratio (12-20); Bilirubin,Total 0.3 mg/dL (0.3-1.2); Blood Urea Nitrogen 36 mg/dL (9-23); Calcium 7.9 mg/dL (8.3-10.6); Calcium (Corrected) 8.8 mg/dL (8.5-10.1); Carbon Dioxide 33.1 mMol/L (20.0-31.0); Chloride 97 mMol/L (98-107); Creatinine (Component) 2.5 mg/dL (0.6-1.3); Globulin 2.5 gm/dL (2.3-3.5); Glucose 248 mg/dL (74-106); Magnesium 2.4 mg/dL (1.6-2.6); Osmolality,Calculated 291 (275-295); Phosphorous 1.4 mg/dL (2.4-5.1); Potassium 3.4 mMol/L (3.4-5.1); Sodium 138 mMol/L (136-145); Total Protein 5.4 gm/dL (5.7-8.2); eGFR 28 See Note
[2024-09-01 06:55] LABS: Hepatitis B Core Ab,Total* NONREACTIVE
[2024-09-01] MEDS: ALBUTEROL RT 2.5 MG/0.5 ML NEBU INH ×3 (07:23→22:45)
--- NOTE | 2024-09-01 09:09 | PC.SS ---
Addendum entered by Silvia Sykes 09/01/24 14:35: SS follow up note; SS contacted [employer] and spoke to Janine, she checked status and at the time Insurance authorization is still pending and informed SS she would contact SS once she has an answer from Corporate office. Original Note: SS follow up note; SS contacted [employer] and Insurance Authorization is still pending at the time.
[2024-09-01] MEDS: AMIODARONE HCL 200 MG TABLET PO (11:42)
[2024-09-01] MEDS: carVEDILOL 3.125 MG TABLET PO ×2 (11:42→17:40)
[2024-09-01] MEDS: FERROUS SULF 325 MG TABLET PO (11:42)
[2024-09-01] MEDS: NAPH,KPH MBDB 1 PACKET (1.5 GM) 2 PACKET PO (11:43)
[2024-09-01] MEDS: INSULIN LISPRO (AdmeLOG) 1 UNIT/0.01 ML UNIT SC (11:46)
[2024-09-01] MEDS: CITRIC ACID/SODIUM CITR 15 ML UDC (BICITRA) 30 ML PO ×2 (11:47→20:26)
--- NOTE | 2024-09-01 11:52 | ESPR_ITS ---
<Statement entered by Harjinder Neville MD - 09/01/24 15:15> Patient was seen and examined at the bedside. Patient received scheduled hemodialysis. PT evaluation was ordered as per rn social work for insurance authorization. Hepatitis B core was negative. Hemoglobin was stable. Kidney functions consistent with ESRD pattern. Blood glucose was elevated he was informed not to drink Ensure as those drinks are making his blood sugars go higher. Monitor blood sugars were under control. Phosphorus was repleted. Urine cultures grew VRE however patient was asymptomatic therefore antibiotic coverage was not given. Currently awaiting insurance authorization. All labs and orders were reviewed. I saw and examined the patient, and I agree with current management stated by Dr aGbe MD,PGY1. Plan of care was discussed with the attending physician and resident physician. Disclaimer: Despite multiple revisions, due to the dictation software being used, the document bellow may not be free of grammatical errors including phonetic/typographic errors. However, this does not deter from our commitment to providing health care in the patient's best interest in mind. Dr. Kelin MD, PGY 2 Documentation for date of: 09/01/24 Subjective Subjective Interval history: No acute overnight events reported, Pt is seen and examined at bedside this morning. pt is seen and examined during dialysis this morning. Pt endorses to feeling great, Discussed with pt that his blood glucose is high therefore to slow down on the soda drink. Since his is bringing food from home,will decrease the ensure protein drinks as it contains high sugar. Will continue to monitor blood glucose. vitals are stable, and significant labs include BUN 36 and creatinine 2.5, blood glucose 248. Pt has completed course of antibiotics for UTI and bacteremia. Pt is still pending insurance authorization for outpatient dialysis. Exam Vital Signs Temp Pulse Resp BP Pulse Ox O2 Del Method O2 Flow Rate 97.2 F 60 18 139/72 H 95 Room Air 2 09/01/24 11:06 09/01/24 11:42 09/01/24 11:06 09/01/24 11:42 09/01/24 11:06 09/01/24 08:00 09/01/24 08:09 Narrative Exam GENERAL: A&Ox3 . awake, elderly male in pleasant NEURO: no focal neurological deficits HEENT: Atraumatic, Normocephalic. mucous membranes moist. Eyes open, symmetrical, & clear, tunneled dialysis cath in place, dressing clean and dry HEART: Normal Heart Sounds LUNGS: Clear to auscultation with no wheezing or crackles. ABDOMEN: soft, non-distended, non-tender, bowel sounds heard, no guarding or rebound tenderness SKIN: No Rash or ecchymoses EXTREMITIES: bilateral BKA, amputation of the digits 3,4,5 of the right hand Objective Labs 09/01/24 05:26 09/01/24 05:26 Labs: Laboratory Results - last 24 hr 08/26/24 09/01/24 05:30 05:26 WBC 7.9 RBC 3.44 L Hgb 9.1 L Hct 28.1 L MCV 82 MCH 26.5 MCHC 32.4 RDW Std Deviation 59.3 H Plt Count 172 Neut % (Auto) 65 Lymph % (Auto) 18 [place] % (Auto) 10 Eos % (Auto) 4 Baso % (Auto) 1 Neut # (Auto) 5.1 Lymph # (Auto) 1.5 [place] # (Auto) 0.8 Eos # (Auto) 0.3 Baso # (Auto) 0.1 Immature Gran # (Auto) 0.25 H Absolute Nucleated RBC 0.00 Immature Gran % 3 H Nucleated RBC % 0 Sodium 138 Potassium 3.4 Chloride 97 L Carbon Dioxide 33.1 H Anion Gap 8 BUN 36 H Creatinine 2.5 H Estim Creat Clear Calc 25.0 L eGFR 28 L BUN/Creatinine Ratio 14 Glucose 248 H Calculated Osmolality 291 Calcium 7.9 L Corrected Calcium 8.8 Phosphorus 1.4 L Magnesium 2.4 Total Bilirubin 0.3 AST 13 ALT 17 Alkaline Phosphatase 69 Total Protein 5.4 L Albumin 2.9 L Globulin 2.5 Albumin/Globulin Ratio 1.2 Hep B Core Total Ab NONREACTIVE ABG Interpretation ABG results: 08/21/24 08/21/24 08/22/24 20:24 23:24 04:35 ABG pH 7.26 L ABG pCO2 31 L ABG pO2 92 ABG HCO3 14 L ABG O2 Saturation 97 ABG Base Excess -12 L VBG pH 7.32 L 7.22 L VBG pCO2 30 L 35 L VBG pO2 66 H 85 H VBG Base Excess -10 L -12 L 08/24/24 08:40 ABG pH ABG pCO2 ABG pO2 ABG HCO3 ABG O2 Saturation ABG Base Excess VBG pH 7.36 VBG pCO2 31 L VBG pO2 80 H VBG Base Excess -8 L Quality Measures Quality Measures none Advance care planning discussed with:: patient Assessment & Plan Assessment Current Active Medications: Generic Name Dose Route Start Last Admin Trade Name Freq PRN Reason Stop Dose Admin Acetaminophen 650 mg 08/21/24 23:37 Acetaminophen 325 Mg Tablet PO 09/20/24 23:36 Q4HR PRN PAIN SCALE 1-3 (mild Acetaminophen 650 mg 08/21/24 23:37 Acetaminophen Supp 650 Mg Supp AK 09/20/24 23:36 Q4HR PRN PAIN SCALE 1-3 (mild Al Hydrox/Mg Hydrox/Simethicone 30 ml 08/22/24 00:31 Mg Hyd/Al Hyd/Stephy (Maalox Reg) Susp 30 Ml Udc PO 09/20/24 23:36 Q4HR PRN Heartburn or Upset Stomach Albuterol 2.5 mg 08/26/24 15:00 09/01/24 07:23 Albuterol Rt 2.5 Mg/0.5 Ml Nebu INH 09/25/24 14:59 2.5 mg Q8HRRT KENNY Administration Amiodarone HCl 200 mg 08/24/24 15:00 09/01/24 11:42 Amiodarone Hcl 200 Mg Tablet PO 09/23/24 14:59 200 mg QDAY KENNY Administration Carvedilol 3.125 mg 08/28/24 17:30 09/01/24 11:42 Carvedilol 3.125 Mg Tablet PO 09/27/24 17:29 3.125 mg BIDWM KENNY Administration Citric Acid/Sodium Citrate 30 ml 08/24/24 21:00 09/01/24 11:47 Citric Acid/Sodium Citr 15 Ml Udc (Bicitra) PO 09/23/24 20:59 30 ml BID KENNY Administration Dextrose 25 ml 08/22/24 04:20 08/22/24 11:43 Dextrose 50%-Water Inj 50 Ml Syringe IV 09/21/24 04:19 25 ml Q15MIN PRN Administration BG 50-70 responsive npo pt Dextrose 50 ml 08/22/24 04:20 Dextrose 50%-Water Inj 50 Ml Syringe IV 09/21/24 04:19 Q15MIN PRN BG <50 OR BG <70 & pt unresponsive Ferrous Sulfate 325 mg 08/24/24 08:30 09/01/24 11:42 Ferrous Sulf 325 Mg Tablet PO 09/23/24 08:29 325 mg QOD KENNY Administration Heparin Sodium (Porcine) 3,500 unit 08/27/24 15:36 08/29/24 12:14 Heparin Sod Inj 1000 Unit/Ml Vial 10 Ml INDWELLCAT 09/10/24 15:35 3,500 unit PRN PRN Administration DIALYSIS Albumin Human 25 gm in 100 mls @ 100 mls/min 08/22/24 05:34 Albuminar-25 Ivpb IV PRN PRN DIALYSIS Insulin Human Lispro 0 unit 08/29/24 07:30 09/01/24 11:46 Insulin Lispro (Admelog) 1 Unit/0.01 Ml Unit SC 09/28/24 07:29 2 unit AC KENNY Administration Protocol Magnesium Hydroxide 30 ml 08/21/24 23:37 Milk Of Magnesia Susp 30 Ml Udc PO 09/20/24 23:36 QDAY PRN CONSTIPATION Midodrine 5 mg 08/30/24 13:24 Midodrine 5 Mg Tablet PO 09/27/24 21:59 TID PRN SBP < 100 or MAP < 65 Pharmacy Consult 1 each 08/23/24 08:21 Pharmacy To Consult Patient XX 09/22/24 08:20 PRN PRN Starting 24Hr Continuous/Intermittent Dialysis Potassium Phos/Sodium Phos 1 packet 09/01/24 13:00 [facility] 1 Packet (1.5 Gm) PO 09/01/24 13:01 X1 ONE Sodium Chloride 3 ml 08/22/24 14:07 08/31/24 22:17 Sodium Chloride Rt Jing 0.9% 3 Ml Nebu INH 09/21/24 14:06 3 ml PRN PRN Administration SOLN Plan Mr. Galdamez is a 64-year-old male with a past medical history of hypertension, hyperlipidemia, CKD stage IIIb, diabetes, bilateral BKA's, A-fib, CAD status post stent, HFrEF with ejection fraction 10 to 15% who presented to the ED on 08/21/2024 from [facility] with altered mental status and generalized weakness. #ESRD #New onset hemodialysis post tunneled dialysis catheter, 08/26 # Worsening JADEIL on CKD required CRRT #Lactic acidosis -improved #Hyperkalemia - resolved -creatinine on admission 6.3, GFR 9, lactic acid 5.1, potassium on admission 7.5 -During this ICU admission pt is started on CRRT -Pt underwent permanent tunneled dialysis catheter, per nephrology recs pt will need to undergo HD dialysis 2x per week out patient -nephrology following -Pending insurance authorization for outpatient dialysis #Acute blood loss anemia #Iron deficiency anemia -Morning labs Hgb 6.6 and 1 unit transfused -source of bleeding is yet to be determined, upper vs. lower GI, Pt also developed ESRD could be due to decrease erythropoitin -Iron panel: Iron 42, TIBC 235, Iron sat 17 and unsat Iron binding 193 -FOBT negative -Pt receive EPO with dialysis, which has stabilized Hgb #UTI #hematuria #pyuria -Urinalysis is positive for leukocyte esterace, urine rbc 5180, urine wbc 1928 -Pt denies any UTI symtoms including dysuria or urgency -urine culture show no growth initially -Repeat urine cultures on 08/28 grew VRE -Pt is started on ceftriaoxone 08/27- 08/30 #Cardiogenic shock- resolved #symptomatic bradycardia 2/2 to hyperkalemia #HFrEF (10-15%) -On admission pt was found to have bradycardia with HR in 40's, atropine x2 was given in the ED -Due to hypotension with BP of 77/55 and MAP <65, pt was started on levophed and dopamine drips, eventually weaned off on 08/24 -started on midodrine 10mg Q6HR -Per cardiology- ICD not indicated in patient for following reasons: Patient has NYHA Class IV with drug-refractory CHF, reasonable expectation of survival with an acceptable functional status < 6 months -Per cardiology, patient currently not a candidate for surgical intervention -On discharge, patient will benefit from GDMT optimized with Entresto if blood pressure tolerates. Currently BP is too soft to start GDMT, pt will need to follow up outpatient cardiology -Repeat echo results : Anteroseptal akinesis with moderate LV dysfunction approximate ejection fraction is 40%. Normal RV function normal PA pressure Mild to moderate mitral regurgitation Moderate TR -Cardio following -Started Coreg 3.25mg BID (parameters hold if SBP <100, HR <50, MAP <65) #history of A-fib -Pt has history of a-fib and home meds include metoprolol, amiodarone and eliquis. metoprolol and eliquis -currently on hold due to bradycardia and acute blood loss anemia CHADVAS score 3 and MELDs score 17 -Pt is in sinus rhythm and will resume meds when able -resumed amiodarone Qday #insulin dependent Type 2 diabetes, uncontrolled #Hx of osteomylitis s/p bilaterally BKA -A1c 10.2 -Pt home medications include glargine 15 units BID -insulin sliding scale started -hypoglycemic protocol in place -Pt underwent bilateral BKA due to long standing uncontrolled T2DM #Transiminitis - resolved -On admission AST and ALT mildy elevated, T. bili and ALP with in normal range. -Likely secondary to shock, will continue to monitor as shock has now resolved. Health Maintenance Disposition: telemetry DVT Prophylaxis: Heparin 5000 units SC Q12 hrs GI Prophylaxis: not indicated Diet: regular diet plus ensure Lines: Peripheral lines Code status: DNR Assessment and plan discussed with my senior resident Dr. Neville and attending physician Dr. Matthew Benral (PGY-1)- Internal medicine resident Attending Provider Attestation/Addendum I have discussed and was present for the essential components of the history, physical examination, diagnosis, and treatment plan with the resident. I agree with the patient's care as documented by the resident and amended herein by me. Dann Castro DO. Patient seen and evaluated this AM. No acute events overnight, vital signs stable, patient afebrile, hemoglobin stable at 9.1, BUN 36, creatinine stable 2.5. Next hemodialysis session Sunday. Urine culture demonstrating VRE however patient asymptomatic. Insurance authorization for HD chair still pending, I did speak with Dr. Fonseca today, she would like the patient to follow-up with dialysis center here in [place] however insurance may not cover this, we will have to wait and see in the next 1 to 2 days hopefully what the insurance will approve. Patient is doing quite well otherwise. Although this document has been carefully reviewed, there may still be some phonetic and other typographical errors. These errors are purely grammatical due to imperfections in the software program and should not be construed in any way to compromise the substance of the patient's medical care during this visit.
[2024-09-01] MEDS: HEPARIN SOD INJ 1000 UNIT/ML VIAL 10 ML 3500 UNIT INDWELLCAT (11:53)
[2024-09-01] MEDS: NAPH,KPH MBDB 1 PACKET (1.5 GM) PO (13:16)
--- NOTE | 2024-09-01 14:31 | ESPR_ITS ---
Documentation for date of: 09/01/24 Subjective Subjective Interval history: Mr. Galdamez is a 64-year-old male with significant past medical history of hypertension, insulin-dependent diabetes mellitus, CAD s/p PCI, HFrEF [EF 10 to 15%], CKD stage III, bilateral below-knee amputations, atrial fibrillation living in [facility] was brought to the hospital with chief complaints of worsening mentation, shortness of breath and generalized weakness for the past 2 days. Patient was noted to have heart rate dropped to 40s during transit time in the ambulance for which patient was externally paced and 2 doses of atropine was given without response. In the ED, patient was found to have heart rate of 40 with blood pressure of 80/45 mmHg for which cardiology was consulted for suspected AV block. Per vice squad police officer, there is no concern for AV block and patient was found to have junctional escape rhythm with underlying atrial fibrillation and recommended to start on Levophed and low-dose dopamine. Patient was admitted to ICU for further care. Also noted patient had decreased p.o. intake 2 days before the day of admission and abdominal discomfort. ED Course: -Initial vitals were blood pressure 111/58 mmHg, SpO2 79% with 15 L oxygen -Labs significant for Hb 8.3, potassium 7.5, bicarb 14, anion gap 19, BUN 85, creatinine 6.2, lactate 7. Urine analysis showed 5000 RBC and 2000 WBC. -Head CT was negative for acute hemorrhage and infarct. -Patient was admitted for shock requiring vasopressors Nephrology was consulted for acute on chronic kidney injury. 08/30/2024 Patient is seen and examined with at interventions from our side they have any questions bedside No acute overnight events and patient denies any other complaints Vitals are stable. Patient still appears to be oliguric Labs showed BUN 23, creatinine 2 Pending dialysis chair placement. 09/01/2024 Patient is seen and examined in dialysis unit No acute overnight events. Denies any other complaints Vitals are stable. Physical examination remains unchanged Labs showed WBC 7.9, Hb 9.1, sodium 138, potassium 3.4, BUN 36, creatinine 2.5 Still pending outpatient dialysis chair placement. Patient is tolerating dialysis well Exam Vital Signs Temp Pulse Resp BP Pulse Ox O2 Del Method O2 Flow Rate 97.1 F 75 18 127/63 95 Room Air 2 09/01/24 12:00 09/01/24 14:13 09/01/24 14:13 09/01/24 12:00 09/01/24 14:13 09/01/24 12:00 09/01/24 08:09 Narrative Exam General: Awake. Lying comfortably on the bed HEENT: Normocephalic, atraumatic, mucous membranes moist. Heart: Regular rate and rhythm, no murmurs. Lungs: Clear to auscultation with no wheezing or crackles. Abdomen: Soft, nondistended, nontender, positive bowel sounds. ?No guarding or rebound tenderness. Neurologic: Alert and oriented x3, no gross neurological deficit, and patient able to move all 4 extremities. Extremities: No edema. 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 B/L BKA Skin: No rash or ecchymoses. Objective Labs 09/02/24 05:10 09/02/24 05:10 Labs: Laboratory Results - last 24 hr 08/26/24 09/01/24 05:30 05:26 WBC 7.9 RBC 3.44 L Hgb 9.1 L Hct 28.1 L MCV 82 MCH 26.5 MCHC 32.4 RDW Std Deviation 59.3 H Plt Count 172 Neut % (Auto) 65 Lymph % (Auto) 18 [place] % (Auto) 10 Eos % (Auto) 4 Baso % (Auto) 1 Neut # (Auto) 5.1 Lymph # (Auto) 1.5 [place] # (Auto) 0.8 Eos # (Auto) 0.3 Baso # (Auto) 0.1 Immature Gran # (Auto) 0.25 H Absolute Nucleated RBC 0.00 Immature Gran % 3 H Nucleated RBC % 0 Sodium 138 Potassium 3.4 Chloride 97 L Carbon Dioxide 33.1 H Anion Gap 8 BUN 36 H Creatinine 2.5 H Estim Creat Clear Calc 25.0 L eGFR 28 L BUN/Creatinine Ratio 14 Glucose 248 H Calculated Osmolality 291 Calcium 7.9 L Corrected Calcium 8.8 Phosphorus 1.4 L Magnesium 2.4 Total Bilirubin 0.3 AST 13 ALT 17 Alkaline Phosphatase 69 Total Protein 5.4 L Albumin 2.9 L Globulin 2.5 Albumin/Globulin Ratio 1.2 Hep B Core Total Ab NONREACTIVE ABG Interpretation ABG results: 08/21/24 08/21/24 08/22/24 20:24 23:24 04:35 ABG pH 7.26 L ABG pCO2 31 L ABG pO2 92 ABG HCO3 14 L ABG O2 Saturation 97 ABG Base Excess -12 L VBG pH 7.32 L 7.22 L VBG pCO2 30 L 35 L VBG pO2 66 H 85 H VBG Base Excess -10 L -12 L 08/24/24 08:40 ABG pH ABG pCO2 ABG pO2 ABG HCO3 ABG O2 Saturation ABG Base Excess VBG pH 7.36 VBG pCO2 31 L VBG pO2 80 H VBG Base Excess -8 L Quality Measures Quality Measures none Advance care planning discussed with:: patient Assessment & Plan Assessment Current Active Medications: Generic Name Dose Route Start Last Admin Trade Name Freq PRN Reason Stop Dose Admin Acetaminophen 650 mg 08/21/24 23:37 Acetaminophen 325 Mg Tablet PO 09/20/24 23:36 Q4HR PRN PAIN SCALE 1-3 (mild Acetaminophen 650 mg 08/21/24 23:37 Acetaminophen Supp 650 Mg Supp NV 09/20/24 23:36 Q4HR PRN PAIN SCALE 1-3 (mild Al Hydrox/Mg Hydrox/Simethicone 30 ml 08/22/24 00:31 Mg Hyd/Al Hyd/Stephy (Maalox Reg) Susp 30 Ml Udc PO 09/20/24 23:36 Q4HR PRN Heartburn or Upset Stomach Albuterol 2.5 mg 08/26/24 15:00 09/01/24 14:12 Albuterol Rt 2.5 Mg/0.5 Ml Nebu INH 09/25/24 14:59 2.5 mg Q8HRRT KENNY Administration Amiodarone HCl 200 mg 08/24/24 15:00 09/01/24 11:42 Amiodarone Hcl 200 Mg Tablet PO 09/23/24 14:59 200 mg QDAY KENNY Administration Carvedilol 3.125 mg 08/28/24 17:30 09/01/24 11:42 Carvedilol 3.125 Mg Tablet PO 09/27/24 17:29 3.125 mg BIDWM KENNY Administration Citric Acid/Sodium Citrate 30 ml 08/24/24 21:00 09/01/24 11:47 Citric Acid/Sodium Citr 15 Ml Udc (Bicitra) PO 09/23/24 20:59 30 ml BID KENNY Administration Dextrose 25 ml 08/22/24 04:20 08/22/24 11:43 Dextrose 50%-Water Inj 50 Ml Syringe IV 09/21/24 04:19 25 ml Q15MIN PRN Administration BG 50-70 responsive npo pt Dextrose 50 ml 08/22/24 04:20 Dextrose 50%-Water Inj 50 Ml Syringe IV 09/21/24 04:19 Q15MIN PRN BG <50 OR BG <70 & pt unresponsive Ferrous Sulfate 325 mg 08/24/24 08:30 09/01/24 11:42 Ferrous Sulf 325 Mg Tablet PO 09/23/24 08:29 325 mg QOD KENNY Administration Heparin Sodium (Porcine) 3,500 unit 08/27/24 15:36 09/01/24 11:53 Heparin Sod Inj 1000 Unit/Ml Vial 10 Ml INDWELLCAT 09/10/24 15:35 3,500 unit PRN PRN Administration DIALYSIS Albumin Human 25 gm in 100 mls @ 100 mls/min 08/22/24 05:34 Albuminar-25 Ivpb IV PRN PRN DIALYSIS Insulin Human Lispro 0 unit 08/29/24 07:30 09/01/24 11:46 Insulin Lispro (Admelog) 1 Unit/0.01 Ml Unit SC 09/28/24 07:29 2 unit AC KENNY Administration Protocol Magnesium Hydroxide 30 ml 08/21/24 23:37 Milk Of Magnesia Susp 30 Ml Udc PO 09/20/24 23:36 QDAY PRN CONSTIPATION Midodrine 5 mg 08/30/24 13:24 Midodrine 5 Mg Tablet PO 09/27/24 21:59 TID PRN SBP < 100 or MAP < 65 Pharmacy Consult 1 each 08/23/24 08:21 Pharmacy To Consult Patient XX 09/22/24 08:20 PRN PRN Starting 24Hr Continuous/Intermittent Dialysis Sodium Chloride 3 ml 08/22/24 14:07 08/31/24 22:17 Sodium Chloride Rt Jing 0.9% 3 Ml Nebu INH 09/21/24 14:06 3 ml PRN PRN Administration SOLN Plan A 64-year-old male with significant past medical history of hypertension, insulin-dependent diabetes mellitus, CAD s/p PCI, HFrEF [EF 10 to 15%], CKD stage III, bilateral below-knee amputations, atrial fibrillation living in [facility] facility was brought to the hospital with chief complaints of worsening mentation, shortness of breath and generalized weakness for the past 2 days. # Acute on chronic kidney disease, stage IIIb Likely prerenal versus ATN in the setting of shock -Patient presented to the hospital with the complaints of shortness of breath worsening mentation and per patient's patient had abdominal pain and foul- smelling urine. -Baseline creatinine as of 07/2024 is 2.4 -On the day of admission, 08/21/2024, creatinine is 6.3 > 08/25, BUN 25, Cr 2.8 1 >08/26, BUN 18, Cr 2 >08/28, BUN 15, Cr 2.1 >08/29, BUN 30, Cr 2.8 -Urine analysis showed turbid urine with 2+ proteinuria, 3+ blood, 5180 RBC, 1928 WBC Plan -Patient got CRRT on 08/22 and one more session done on 08/23, HD on 08/26, 08/27, 08/29, 09/01 -will continue dialysis 2 times per week till patient renal functions come back to his normal baseline and makes adequate amount of urine output -Monitor renal functions and avoid nephrotoxic medications #Hypokalemia, resolved -On 09/01/2024, potassium is 3.4 -Recommend to monitor electrolytes and replete accordingly. # Hyperkalemia, resolved # Hyperphosphatemia, resolved # Lactic acidosis, resolved -Found to have potassium of 7.5 at the time of admission -Since 08/23/2024, Electrolytes are within normal limits #Acute encephalopathy 2/2 UTI #Chronic right parietal stroke #Shock #Acute hypoxic respiratory failure. #Complicated UTI #Chronic anemia #IDDM #Elevated LFT's To be treated per primary team Thank you for allowing us to involved in the care of the patient Patient plan of care was discussed with the attending physician, Dr. Marian Gates, PGY1 Attending Provider Attestation/Addendum Patient seen and examined with resident physician Dr. Pollard. Note reviewed, agree with findings and recommendations. Patient with sepsis and JADIEL. On broad-spectrum antibiotics. Patient received 2 conventional dialysis treatments and 2 CRRT treatment days. No urine output. I had a long conversation with the patient and he agreed for outpatient dialysis-twice weekly. Outpatient dialysis to be arranged. Hep panel and PPD negative Status post PermCath. Plan of care discussed with at bedside. Patient more alert and awake and is feeling much better. Patient currently seen on dialysis. Tolerating dialysis without any problems. Hemodialysis for 3 hours, 2K, ultrafiltration 2-3 L, Epogen 6000, no heparin ordered. Plan of care discussed with the dialysis nurse. Please see dialysis flowsheet for further details. Patient awaiting outpatient dialysis at [facility]. He cannot go to [place] or [place].
--- NOTE | 2024-09-01 17:36 | ESPR_ITS ---
<Statement entered by Janee Velazquez MD - 09/05/24 08:51> I personally evaluated the patient examined patient history of ischemic cardiomyopathy chronic systolic heart failure ejection fraction of 40 to 45% range bilaterally patient continues to get dialysis with additional beta-yesika doses per heart rate and blood pressure and amiodarone to be continued evaluate the patient agree with treatment plan as documented by PGY . Documentation for date of: 09/01/24 Subjective Subjective Interval history: Changes evaluated at bedside, asymptomatic, getting breathing treatment. Reported no chest pain or shortness of breath. Patient can be discharged from cardiology standpoint. Exam Vital Signs Temp Pulse Resp BP Pulse Ox O2 Del Method O2 Flow Rate 98.4 F 68 17 115/65 94 L Room Air 2 09/01/24 16:00 09/01/24 16:00 09/01/24 16:00 09/01/24 16:09/01/24 16:09/01/24 16:09/01/24 08:09 Narrative Exam General: AOx3, cooperative, in no acute distress HEENT: Atraumatic/normocephalic, RUPERT Heart: RRR, S1 and S2 without clicks or murmurs Lungs: Clear on auscultation bilaterally, no difficulty breathing Abdomen: Soft, nontender. Bowel sounds present on all quadrants Skin: Bilateral lower extremity BKAs, no edema or cyanosis noted. Right hand amputations digits 3-5. Neuro: No focal neurological deficits noted on appearance Objective Labs 09/01/24 05:26 09/01/24 05:26 Labs: Laboratory Results - last 24 hr 08/26/24 09/01/24 05:30 05:26 WBC 7.9 RBC 3.44 L Hgb 9.1 L Hct 28.1 L MCV 82 MCH 26.5 MCHC 32.4 RDW Std Deviation 59.3 H Plt Count 172 Neut % (Auto) 65 Lymph % (Auto) 18 [place] % (Auto) 10 Eos % (Auto) 4 Baso % (Auto) 1 Neut # (Auto) 5.1 Lymph # (Auto) 1.5 [place] # (Auto) 0.8 Eos # (Auto) 0.3 Baso # (Auto) 0.1 Immature Gran # (Auto) 0.25 H Absolute Nucleated RBC 0.00 Immature Gran % 3 H Nucleated RBC % 0 Sodium 138 Potassium 3.4 Chloride 97 L Carbon Dioxide 33.1 H Anion Gap 8 BUN 36 H Creatinine 2.5 H Estim Creat Clear Calc 25.0 L eGFR 28 L BUN/Creatinine Ratio 14 Glucose 248 H Calculated Osmolality 291 Calcium 7.9 L Corrected Calcium 8.8 Phosphorus 1.4 L Magnesium 2.4 Total Bilirubin 0.3 AST 13 ALT 17 Alkaline Phosphatase 69 Total Protein 5.4 L Albumin 2.9 L Globulin 2.5 Albumin/Globulin Ratio 1.2 Hep B Core Total Ab NONREACTIVE ABG Interpretation ABG results: 08/21/24 08/21/24 08/22/24 20:24 23:24 04:35 ABG pH 7.26 L ABG pCO2 31 L ABG pO2 92 ABG HCO3 14 L ABG O2 Saturation 97 ABG Base Excess -12 L VBG pH 7.32 L 7.22 L VBG pCO2 30 L 35 L VBG pO2 66 H 85 H VBG Base Excess -10 L -12 L 08/24/24 08:40 ABG pH ABG pCO2 ABG pO2 ABG HCO3 ABG O2 Saturation ABG Base Excess VBG pH 7.36 VBG pCO2 31 L VBG pO2 80 H VBG Base Excess -8 L Quality Measures Quality Measures none Advance care planning discussed with:: patient Assessment & Plan Assessment Current Active Medications: Generic Name Dose Route Start Last Admin Trade Name Freq PRN Reason Stop Dose Admin Acetaminophen 650 mg 08/21/24 23:37 Acetaminophen 325 Mg Tablet PO 09/20/24 23:36 Q4HR PRN PAIN SCALE 1-3 (mild Acetaminophen 650 mg 08/21/24 23:37 Acetaminophen Supp 650 Mg Supp DC 09/20/24 23:36 Q4HR PRN PAIN SCALE 1-3 (mild Al Hydrox/Mg Hydrox/Simethicone 30 ml 08/22/24 00:31 Mg Hyd/Al Hyd/Stephy (Maalox Reg) Susp 30 Ml Udc PO 09/20/24 23:36 Q4HR PRN Heartburn or Upset Stomach Albuterol 2.5 mg 08/26/24 15:00 09/01/24 14:12 Albuterol Rt 2.5 Mg/0.5 Ml Nebu INH 09/25/24 14:59 2.5 mg Q8HRRT KENNY Administration Amiodarone HCl 200 mg 08/24/24 15:00 09/01/24 11:42 Amiodarone Hcl 200 Mg Tablet PO 09/23/24 14:59 200 mg QDAY KENNY Administration Carvedilol 3.125 mg 08/28/24 17:30 09/01/24 11:42 Carvedilol 3.125 Mg Tablet PO 09/27/24 17:29 3.125 mg BIDWM KENNY Administration Citric Acid/Sodium Citrate 30 ml 08/24/24 21:00 09/01/24 11:47 Citric Acid/Sodium Citr 15 Ml Udc (Bicitra) PO 09/23/24 20:59 30 ml BID KENNY Administration Dextrose 25 ml 08/22/24 04:20 08/22/24 11:43 Dextrose 50%-Water Inj 50 Ml Syringe IV 09/21/24 04:19 25 ml Q15MIN PRN Administration BG 50-70 responsive npo pt Dextrose 50 ml 08/22/24 04:20 Dextrose 50%-Water Inj 50 Ml Syringe IV 09/21/24 04:19 Q15MIN PRN BG <50 OR BG <70 & pt unresponsive Ferrous Sulfate 325 mg 08/24/24 08:30 09/01/24 11:42 Ferrous Sulf 325 Mg Tablet PO 09/23/24 08:29 325 mg QOD KENNY Administration Heparin Sodium (Porcine) 3,500 unit 08/27/24 15:36 09/01/24 11:53 Heparin Sod Inj 1000 Unit/Ml Vial 10 Ml INDWELLCAT 09/10/24 15:35 3,500 unit PRN PRN Administration DIALYSIS Albumin Human 25 gm in 100 mls @ 100 mls/min 08/22/24 05:34 Albuminar-25 Ivpb IV PRN PRN DIALYSIS Insulin Human Lispro 0 unit 08/29/24 07:30 09/01/24 11:46 Insulin Lispro (Admelog) 1 Unit/0.01 Ml Unit SC 09/28/24 07:29 2 unit AC KENNY Administration Protocol Magnesium Hydroxide 30 ml 08/21/24 23:37 Milk Of Magnesia Susp 30 Ml Udc PO 09/20/24 23:36 QDAY PRN CONSTIPATION Midodrine 5 mg 08/30/24 13:24 Midodrine 5 Mg Tablet PO 09/27/24 21:59 TID PRN SBP < 100 or MAP < 65 Pharmacy Consult 1 each 08/23/24 08:21 Pharmacy To Consult Patient XX 09/22/24 08:20 PRN PRN Starting 24Hr Continuous/Intermittent Dialysis Sodium Chloride 3 ml 08/22/24 14:07 08/31/24 22:17 Sodium Chloride Rt Jing 0.9% 3 Ml Nebu INH 09/21/24 14:06 3 ml PRN PRN Administration SOLN Plan Patient is a 64-year-old male past medical history of HFrEF (EF 10-15%), ischemic cardiomyopathy, CKD IIIb, CAD s/p stents, atrial fibrillation, NSVT, hypertension, hyperlipidemia, IDDM2, and bilateral BKAs who was admitted to the ICU for cardiogenic shock and acute on chronic renal failure requiring vasopressor support and CRRT. Patient was noted to have severe bradycardia in 40s both in ED and en route to ED, given atropine x2 however bradycardia did not resolve, external pacing was initiated. Cardiology team consulted for severe bradycardia in setting of hyperkalemia 7.5. #Paroxysmal atrial fibrillation?now in sinus rhythm Patient has history of atrial fibrillation, presented with slow ventricular rate, symptomatic bradycardia, electrolyte abnormalities likely precipitating bradycardia, hyperkalemia requiring hemodialysis, now resolved, currently patient is not sinus rhythm, will continue amiodarone 200 mg daily. # Systolic CHF?now improved ejection fraction Patient had prior echocardiogram with a EF 15%, now repeat echocardiogram showed EF 40%, improvement in ejection fraction noted with medical management. Will continue carvedilol low-dose for GDMT, but due to concern for hypotension can also use midodrine to keep systolic pressure at least 100, and MAP above 60. - Monitor electrolytes, goal of K > 4 and Magnesium > 2 - reasonable to continue midodrine on discharge, can be discharged from cardiology standpoint, follow-up with field installer outpatient within 2 weeks of discharge. #History of ventricular tachycardia #Severe bradycardia?now resolved Bradycardia secondary to hyperkalemia, unresponsive to medical management, bradycardia now resolved after hemodialysis, currently in sinus rhythm. #History of CKD progressing to ESRD -Management per nephrology, patient is pending outpatient dialysis chair placement #History of osteomyelitis status post BKA - Management per primary team Case discussed with field installer Dr Marcus Montanez PGY2
[2024-09-02] VITALS (14 sets, daily range): BP systolic 98–125; BP diastolic 54–84; PULSE 56–65; RESP 17–98; TEMP 36.1–36.5; O2SAT 93–99; BMI 20.7
[2024-09-02 05:59] LABS: Basophils # (Auto) 0.1 Thou/mm3 (0.0-0.2); Basophils % (Auto) 1 % (0-2.5); Eosinophils # (Auto) 0.3 Thou/mm3 (0.0-0.5); Eosinophils % (Auto) 3 % (0-10); Hematocrit 27.9 % (41.0-53.0); Hemoglobin 8.9 g/dL (13.5-16.0); Immature Granulocytes % (Auto) 2 % (0-0); Immature Granulocytes Auto 0.16 Thou/mm3 (0.00-0.00); Lymphocytes # (Auto) 1.4 Thou/mm3 (1.0-4.8); Lymphocytes % (Auto) 19 % (10-50); Mean Corpuscular HGB Conc 31.9 g/dl (31.0-37.0); Mean Corpuscular Volume 85 fL (80-100); Monocytes # (Auto) 0.7 Thou/mm3 (0.0-0.8); Monocytes % (Auto) 9 % (0-12); Neutrophils % (Auto) 66 % (37-80); Nucleated Red Blood Cell % 0 /100 WBC (0); Platelet Count 145 Thou/mm3 (140-440); RDW Standard Deviation 61.5 fL (35.1-43.9); White Blood Count 7.6 Thou/mm3 (3.8-10.6)
[2024-09-02 06:34] LABS: Alanine Aminotransferase 16 U/L (10-49); Albumin/Globulin Ratio 1.2 (1.2-2.2); Alkaline Phosphatase 71 U/L (46-116); Anion Gap 6 (7-16); Aspartate Amino Transferase 13 U/L (0-34); BUN/Creatinine Ratio 11 Ratio (12-20); Bilirubin,Total 0.4 mg/dL (0.3-1.2); Blood Urea Nitrogen 20 mg/dL (9-23); Calcium 8.7 mg/dL (8.3-10.6); Calcium (Corrected) 9.5 mg/dL (8.5-10.1); Carbon Dioxide 30.9 mMol/L (20.0-31.0); Chloride 100 mMol/L (98-107); Creatinine (Component) 1.8 mg/dL (0.6-1.3); Estimated Creatinine Clearance 34.3 mL/min (>60); Globulin 2.5 gm/dL (2.3-3.5); Glucose 163 mg/dL (74-106); Magnesium 1.9 mg/dL (1.6-2.6); Osmolality,Calculated 280 (275-295); Phosphorous 2.2 mg/dL (2.4-5.1); Potassium 3.7 mMol/L (3.4-5.1); Sodium 137 mMol/L (136-145); Total Protein 5.5 gm/dL (5.7-8.2); eGFR 41 See Note
[2024-09-02] MEDS: SODIUM CHLORIDE RT SOL 0.9% 3 ML NEBU INH ×2 (06:59→14:24)
[2024-09-02] MEDS: ALBUTEROL RT 2.5 MG/0.5 ML NEBU INH ×3 (06:59→22:36)
[2024-09-02] MEDS: INSULIN LISPRO (AdmeLOG) 1 UNIT/0.01 ML UNIT SC ×2 (07:43→18:06)
[2024-09-02] MEDS: CITRIC ACID/SODIUM CITR 15 ML UDC (BICITRA) 30 ML PO ×2 (08:05→20:51)
[2024-09-02] MEDS: carVEDILOL 3.125 MG TABLET PO ×2 (08:06→18:00)
[2024-09-02] MEDS: AMIODARONE HCL 200 MG TABLET PO (08:06)
--- NOTE | 2024-09-02 12:20 | PC.SS ---
SS follow up note; SS contacted [employer] [facility] and spoke to Janine in regards to Insurance verification, she reported they denied however another form is being submitted in the attempt for approval.
--- NOTE | 2024-09-02 14:17 | ESPR_ITS ---
Documentation for date of: 09/02/24 Subjective Subjective Interval history: Patient seen and examined at bedside this morning. No acute overnight events. Patient with ~300cc urine output/24hours, and explained to patient that while he is making some urine, it is not enough to filter his blood/eliminate toxins, which he understood. Vitals stable; patient has not needed midodrine therefore will D/C and increase GDMT as tolerated. Labs reviewed, Hgb stable, FBG within acceptable limits. Currently pending insurance authorization for outpatient hemodialysis. Patient is tolerating diet and last BM this morning. ROS was negative at bedside. Med rec reviewed and will resume patient's home Eliquis, ASA, iron and flomax. Exam Vital Signs Temp Pulse Resp BP Pulse Ox O2 Del Method O2 Flow Rate 97 F 59 L 17 122/84 95 Room Air 2 09/02/24 12:00 09/02/24 12:00 09/02/24 12:00 09/02/24 12:00 09/02/24 12:00 09/02/24 12:00 09/02/24 04:00 Narrative Exam GENERAL: A&Ox3 . awake, ill appearing elderly male, pleasant to speak with NEURO: CN 2-12 grossly normal but not formally tested; no focal neurological deficits HEENT: Atraumatic, Normocephalic. mucous membranes moist. Eyes open, symmetrical, & clear, tunneled dialysis cath in place, dressing clean and dry HEART: Normal S1, S2; RRR; no MRG appreciated LUNGS: Clear to auscultation with no wheezing or crackles. ABDOMEN: soft, non-distended, non-tender, bowel sounds heard, no guarding or rebound tenderness SKIN: No Rash or ecchymoses EXTREMITIES: bilateral BKA, amputation of the digits 3,4,5 of the right hand Objective Labs 09/03/24 05:10 09/03/24 05:10 Labs: Laboratory Results - last 24 hr 09/02/24 05:10 WBC 7.6 RBC 3.30 L Hgb 8.9 L Hct 27.9 L MCV 85 MCH 27.0 MCHC 31.9 RDW Std Deviation 61.5 H Plt Count 145 Neut % (Auto) 66 Lymph % (Auto) 19 [place] % (Auto) 9 Eos % (Auto) 3 Baso % (Auto) 1 Neut # (Auto) 5.0 Lymph # (Auto) 1.4 [place] # (Auto) 0.7 Eos # (Auto) 0.3 Baso # (Auto) 0.1 Immature Gran # (Auto) 0.16 H Absolute Nucleated RBC 0.00 Immature Gran % 2 H Nucleated RBC % 0 Sodium 137 Potassium 3.7 Chloride 100 Carbon Dioxide 30.9 Anion Gap 6 L BUN 20 Creatinine 1.8 H D Estim Creat Clear Calc 34.3 L eGFR 41 L BUN/Creatinine Ratio 11 L Glucose 163 H D Calculated Osmolality 280 Calcium 8.7 Corrected Calcium 9.5 Phosphorus 2.2 L Magnesium 1.9 Total Bilirubin 0.4 AST 13 ALT 16 Alkaline Phosphatase 71 Total Protein 5.5 L Albumin 3.0 L Globulin 2.5 Albumin/Globulin Ratio 1.2 ABG Interpretation ABG results: 08/21/24 08/21/24 08/22/24 20:24 23:24 04:35 ABG pH 7.26 L ABG pCO2 31 L ABG pO2 92 ABG HCO3 14 L ABG O2 Saturation 97 ABG Base Excess -12 L VBG pH 7.32 L 7.22 L VBG pCO2 30 L 35 L VBG pO2 66 H 85 H VBG Base Excess -10 L -12 L 08/24/24 08:40 ABG pH ABG pCO2 ABG pO2 ABG HCO3 ABG O2 Saturation ABG Base Excess VBG pH 7.36 VBG pCO2 31 L VBG pO2 80 H VBG Base Excess -8 L Quality Measures Quality Measures VTE prophylaxis Advance care planning discussed with:: patient and spouse Assessment & Plan Assessment Current Active Medications: Generic Name Dose Route Start Last Admin Trade Name Freq PRN Reason Stop Dose Admin Acetaminophen 650 mg 08/21/24 23:37 Acetaminophen 325 Mg Tablet PO 09/20/24 23:36 Q4HR PRN PAIN SCALE 1-3 (mild Acetaminophen 650 mg 08/21/24 23:37 Acetaminophen Supp 650 Mg Supp DC 09/20/24 23:36 Q4HR PRN PAIN SCALE 1-3 (mild Al Hydrox/Mg Hydrox/Simethicone 30 ml 08/22/24 00:31 Mg Hyd/Al Hyd/Stephy (Maalox Reg) Susp 30 Ml Udc PO 09/20/24 23:36 Q4HR PRN Heartburn or Upset Stomach Albuterol 2.5 mg 08/26/24 15:00 09/02/24 06:59 Albuterol Rt 2.5 Mg/0.5 Ml Nebu INH 09/25/24 14:59 2.5 mg Q8HRRT KENNY Administration Amiodarone HCl 200 mg 08/24/24 15:00 09/02/24 08:06 Amiodarone Hcl 200 Mg Tablet PO 09/23/24 14:59 200 mg QDAY KENNY Administration Carvedilol 3.125 mg 08/28/24 17:30 09/02/24 08:06 Carvedilol 3.125 Mg Tablet PO 09/27/24 17:29 3.125 mg BIDWM KENNY Administration Citric Acid/Sodium Citrate 30 ml 08/24/24 21:00 09/02/24 08:05 Citric Acid/Sodium Citr 15 Ml Udc (Bicitra) PO 09/23/24 20:59 30 ml BID KENNY Administration Dextrose 25 ml 08/22/24 04:20 08/22/24 11:43 Dextrose 50%-Water Inj 50 Ml Syringe IV 09/21/24 04:19 25 ml Q15MIN PRN Administration BG 50-70 responsive npo pt Dextrose 50 ml 08/22/24 04:20 Dextrose 50%-Water Inj 50 Ml Syringe IV 09/21/24 04:19 Q15MIN PRN BG <50 OR BG <70 & pt unresponsive Ferrous Sulfate 325 mg 08/24/24 08:30 09/01/24 11:42 Ferrous Sulf 325 Mg Tablet PO 09/23/24 08:29 325 mg QOD KENNY Administration Heparin Sodium (Porcine) 3,500 unit 08/27/24 15:36 09/01/24 11:53 Heparin Sod Inj 1000 Unit/Ml Vial 10 Ml INDWELLCAT 09/10/24 15:35 3,500 unit PRN PRN Administration DIALYSIS Albumin Human 25 gm in 100 mls @ 100 mls/min 08/22/24 05:34 Albuminar-25 Ivpb IV PRN PRN DIALYSIS Insulin Human Lispro 0 unit 08/29/24 07:30 09/02/24 12:03 Insulin Lispro (Admelog) 1 Unit/0.01 Ml Unit SC 09/28/24 07:29 Not Given AC KENNY Protocol Magnesium Hydroxide 30 ml 08/21/24 23:37 Milk Of Magnesia Susp 30 Ml Udc PO 09/20/24 23:36 QDAY PRN CONSTIPATION Midodrine 5 mg 08/30/24 13:24 Midodrine 5 Mg Tablet PO 09/27/24 21:59 TID PRN SBP < 100 or MAP < 65 Pharmacy Consult 1 each 08/23/24 08:21 Pharmacy To Consult Patient XX 09/22/24 08:20 PRN PRN Starting 24Hr Continuous/Intermittent Dialysis Sodium Chloride 3 ml 08/22/24 14:07 09/02/24 06:59 Sodium Chloride Rt Jing 0.9% 3 Ml Nebu INH 09/21/24 14:06 3 ml PRN PRN Administration SOLN Plan Mr. Galdamez is a 64-year-old male with a past medical history of hypertension, hyperlipidemia, CKD stage IIIb, diabetes, bilateral BKA's, A-fib, CAD status post stent, HFrEF with ejection fraction 10 to 15% who presented to the ED on 08/21/2024 from [facility] with altered mental status and generalized weakness. #ESRD #New onset hemodialysis post tunneled dialysis catheter, 08/26 #Worsening JADIEL on CKD required CRRT, now ESRD #Lactic acidosis -improved #Hyperkalemia - resolved -creatinine on admission 6.3, GFR 9, lactic acid 5.1, potassium on admission 7.5 -During this ICU admission pt is started on CRRT -Pt underwent permanent tunneled dialysis catheter, per nephrology recs pt will need to undergo HD dialysis 2x per week out patient -nephrology following -Pending insurance authorization for outpatient dialysis #Acute blood loss anemia, resolved #Iron deficiency anemia patient required 1 transfusion early in admission; not thought to be a GI bleed but moreso related to ESRD/lack of EPO => improved after Epo Iron panel: Iron 42, TIBC 235, Iron sat 17 and unsat Iron binding 193 FOBT negative Continue home FeSO4 qOD #UTI, resolved #hematuria, resolved #pyuria, resolved -On admission, Urinalysis is positive for leukocyte esterace, urine rbc 5180, urine wbc 1928 -urine culture show no growth initially -Repeat urine cultures on 08/28 grew VRE however patient is asymptomatic; labs/vitals do not reflect a current infection => likely colonization -Pt completed ceftriaoxone 08/27-08/30 #Cardiogenic shock- resolved #symptomatic bradycardia 2/2 to hyperkalemia #HFrEF (10-15%, improved to 40%) -On admission pt was found to have bradycardia with HR in 40's, atropine x2 was given in the ED -Due to hypotension with BP of 77/55 and MAP <65, pt was started on levophed and dopamine drips, eventually weaned off on 08/24 -Per cardiology-ICD not indicated in patient for following reasons: Patient has NYHA Class IV with drug-refractory CHF, reasonable expectation of survival with an acceptable functional status < 6 months -Per cardiology, patient currently not a candidate for surgical intervention -On discharge, patient will benefit from GDMT optimized with Entresto if blood pressure tolerates. Currently BP is too soft to start GDMT, pt will need to follow up outpatient cardiology -Repeat echo results : Anteroseptal akinesis with moderate LV dysfunction approximate ejection fraction is 40%. Normal RV function normal PA pressure Mild to moderate mitral regurgitation Moderate TR -Cardio following -Started Coreg 3.25mg BID (parameters hold if SBP <100, HR <50, MAP <65) #history of A-fib -Pt has history of a-fib and home meds include metoprolol, amiodarone and eliquis. => CHADVASc score 4 and HAS-BLED 3 -NSR -resumed amiodarone Qday; will resume low dose eliquis 2.5mg BID #insulin dependent Type 2 diabetes, uncontrolled #Hx of osteomylitis s/p bilaterally BKA -A1c 10.2 -Pt home medications include glargine 15 units BID -insulin sliding scale started -hypoglycemic protocol in place -Pt underwent bilateral BKA due to long standing uncontrolled T2DM #BPH resumed home flomax #Transiminitis - resolved -On admission AST and ALT mildy elevated, T. bili and ALP with in normal range. -Likely secondary to shock, will continue to monitor as shock has now resolved. Health Maintenance Disposition: telemetry DVT Prophylaxis: eliquis 2.5mg BID GI Prophylaxis: not indicated Diet: renal + glucerna Lines: Peripheral lines Code status: DNR Patient seen and care discussed with my attending Dr. Castro. Jasiel Aggarwal MD PGY-3 Attending Provider Attestation/Addendum I reviewed labs, imaging, EKG, home medications and prior available records. Face to face evaluation was performed by me. I have personally examined the patient and discussed assessment and plan with the IM team. I reviewed the resident note and agree with the plan with exceptions as below. Cardiogenic shock, resolved HFrEF ESRD Hemodialysis status Hyperkalemia, resolved Continue hemodialysis per nephrology recommendations Pending authorization for hemodialysis chair Dose medications based on GFR
--- NOTE | 2024-09-02 15:43 | ESPR_ITS ---
Documentation for date of: 09/02/24 Subjective Subjective Interval history: Mr. Galdamez is a 64-year-old male with significant past medical history of hypertension, insulin-dependent diabetes mellitus, CAD s/p PCI, HFrEF [EF 10 to 15%], CKD stage III, bilateral below-knee amputations, atrial fibrillation living in [facility] facility was brought to the hospital with chief complaints of worsening mentation, shortness of breath and generalized weakness for the past 2 days. Patient was noted to have heart rate dropped to 40s during transit time in the ambulance for which patient was externally paced and 2 doses of atropine was given without response. In the ED, patient was found to have heart rate of 40 with blood pressure of 80/45 mmHg for which cardiology was consulted for suspected AV block. Per dope house operator helper, there is no concern for AV block and patient was found to have junctional escape rhythm with underlying atrial fibrillation and recommended to start on Levophed and low-dose dopamine. Patient was admitted to ICU for further care. Also noted patient had decreased p.o. intake 2 days before the day of admission and abdominal discomfort. ED Course: -Initial vitals were blood pressure 111/58 mmHg, SpO2 79% with 15 L oxygen -Labs significant for Hb 8.3, potassium 7.5, bicarb 14, anion gap 19, BUN 85, creatinine 6.2, lactate 7. Urine analysis showed 5000 RBC and 2000 WBC. -Head CT was negative for acute hemorrhage and infarct. -Patient was admitted for shock requiring vasopressors Nephrology was consulted for acute on chronic kidney injury. 08/30/2024 Patient is seen and examined with at interventions from our side they have any questions bedside No acute overnight events and patient denies any other complaints Vitals are stable. Patient still appears to be oliguric Labs showed BUN 23, creatinine 2 Pending dialysis chair placement. 09/01/2024 Patient is seen and examined in dialysis unit No acute overnight events. Denies any other complaints Vitals are stable. Physical examination remains unchanged Labs showed WBC 7.9, Hb 9.1, sodium 138, potassium 3.4, BUN 36, creatinine 2.5 Still pending outpatient dialysis chair placement. Patient is tolerating dialysis well 09/02/2024 Patient is seen and examined at the bedside No acute overnight events. Denies any other complaints Vitals are stable. Physical examination remains unchanged Urine output is 300ml and seems to be improving Labs showed WBC 7.6, Hb 8.9, BUN 20, Cr 1.8 Exam Vital Signs Temp Pulse Resp BP Pulse Ox O2 Del Method O2 Flow Rate 97 F 62 18 122/84 98 Room Air 2 09/02/24 12:00 09/02/24 14:25 09/02/24 14:25 09/02/24 12:00 09/02/24 14:25 09/02/24 12:00 09/02/24 04:00 Narrative Exam General: Awake. Lying comfortably on the bed HEENT: Normocephalic, atraumatic, mucous membranes moist. Heart: Regular rate and rhythm, no murmurs. Lungs: Clear to auscultation with no wheezing or crackles. Abdomen: Soft, nondistended, nontender, positive bowel sounds. ?No guarding or rebound tenderness. Neurologic: Alert and oriented x3, no gross neurological deficit, and patient able to move all 4 extremities. Extremities: No edema. 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 B/L BKA Skin: No rash or ecchymoses. Objective Labs 09/02/24 05:10 09/02/24 05:10 Labs: Laboratory Results - last 24 hr 09/02/24 05:10 WBC 7.6 RBC 3.30 L Hgb 8.9 L Hct 27.9 L MCV 85 MCH 27.0 MCHC 31.9 RDW Std Deviation 61.5 H Plt Count 145 Neut % (Auto) 66 Lymph % (Auto) 19 [place] % (Auto) 9 Eos % (Auto) 3 Baso % (Auto) 1 Neut # (Auto) 5.0 Lymph # (Auto) 1.4 [place] # (Auto) 0.7 Eos # (Auto) 0.3 Baso # (Auto) 0.1 Immature Gran # (Auto) 0.16 H Absolute Nucleated RBC 0.00 Immature Gran % 2 H Nucleated RBC % 0 Sodium 137 Potassium 3.7 Chloride 100 Carbon Dioxide 30.9 Anion Gap 6 L BUN 20 Creatinine 1.8 H D Estim Creat Clear Calc 34.3 L eGFR 41 L BUN/Creatinine Ratio 11 L Glucose 163 H D Calculated Osmolality 280 Calcium 8.7 Corrected Calcium 9.5 Phosphorus 2.2 L Magnesium 1.9 Total Bilirubin 0.4 AST 13 ALT 16 Alkaline Phosphatase 71 Total Protein 5.5 L Albumin 3.0 L Globulin 2.5 Albumin/Globulin Ratio 1.2 ABG Interpretation ABG results: 08/21/24 08/21/24 08/22/24 20:24 23:24 04:35 ABG pH 7.26 L ABG pCO2 31 L ABG pO2 92 ABG HCO3 14 L ABG O2 Saturation 97 ABG Base Excess -12 L VBG pH 7.32 L 7.22 L VBG pCO2 30 L 35 L VBG pO2 66 H 85 H VBG Base Excess -10 L -12 L 08/24/24 08:40 ABG pH ABG pCO2 ABG pO2 ABG HCO3 ABG O2 Saturation ABG Base Excess VBG pH 7.36 VBG pCO2 31 L VBG pO2 80 H VBG Base Excess -8 L Quality Measures Quality Measures VTE prophylaxis Advance care planning discussed with:: patient Assessment & Plan Assessment Current Active Medications: Generic Name Dose Route Start Last Admin Trade Name Freq PRN Reason Stop Dose Admin Acetaminophen 650 mg 08/21/24 23:37 Acetaminophen 325 Mg Tablet PO 09/20/24 23:36 Q4HR PRN PAIN SCALE 1-3 (mild Acetaminophen 650 mg 08/21/24 23:37 Acetaminophen Supp 650 Mg Supp WV 09/20/24 23:36 Q4HR PRN PAIN SCALE 1-3 (mild Al Hydrox/Mg Hydrox/Simethicone 30 ml 08/22/24 00:31 Mg Hyd/Al Hyd/Stephy (Maalox Reg) Susp 30 Ml Udc PO 09/20/24 23:36 Q4HR PRN Heartburn or Upset Stomach Albuterol 2.5 mg 08/26/24 15:00 09/02/24 14:23 Albuterol Rt 2.5 Mg/0.5 Ml Nebu INH 09/25/24 14:59 2.5 mg Q8HRRT KENNY Administration Amiodarone HCl 200 mg 08/24/24 15:00 09/02/24 08:06 Amiodarone Hcl 200 Mg Tablet PO 09/23/24 14:59 200 mg QDAY KENNY Administration Apixaban 2.5 mg 09/02/24 21:00 Apixaban 2.5 Mg Tablet PO 10/02/24 20:59 BID KENNY Aspirin 81 mg 09/03/24 09:00 Aspirin Ec 81 Mg Tabec PO 10/03/24 08:59 QDAY KENNY Carvedilol 3.125 mg 08/28/24 17:30 09/02/24 08:06 Carvedilol 3.125 Mg Tablet PO 09/27/24 17:29 3.125 mg BIDWM KENNY Administration Citric Acid/Sodium Citrate 30 ml 08/24/24 21:00 09/02/24 08:05 Citric Acid/Sodium Citr 15 Ml Udc (Bicitra) PO 09/23/24 20:59 30 ml BID KENNY Administration Dextrose 25 ml 08/22/24 04:20 08/22/24 11:43 Dextrose 50%-Water Inj 50 Ml Syringe IV 09/21/24 04:19 25 ml Q15MIN PRN Administration BG 50-70 responsive npo pt Dextrose 50 ml 08/22/24 04:20 Dextrose 50%-Water Inj 50 Ml Syringe IV 09/21/24 04:19 Q15MIN PRN BG <50 OR BG <70 & pt unresponsive Ferrous Sulfate 325 mg 08/24/24 08:30 09/01/24 11:42 Ferrous Sulf 325 Mg Tablet PO 09/23/24 08:29 325 mg QOD KENNY Administration Heparin Sodium (Porcine) 3,500 unit 08/27/24 15:36 09/01/24 11:53 Heparin Sod Inj 1000 Unit/Ml Vial 10 Ml INDWELLCAT 09/10/24 15:35 3,500 unit PRN PRN Administration DIALYSIS Albumin Human 25 gm in 100 mls @ 100 mls/min 08/22/24 05:34 Albuminar-25 Ivpb IV PRN PRN DIALYSIS Insulin Human Lispro 0 unit 08/29/24 07:30 09/02/24 12:03 Insulin Lispro (Admelog) 1 Unit/0.01 Ml Unit SC 09/28/24 07:29 Not Given AC [facility] Protocol Magnesium Hydroxide 30 ml 08/21/24 23:37 Milk Of Magnesia Susp 30 Ml Udc PO 09/20/24 23:36 QDAY PRN CONSTIPATION Midodrine 5 mg 08/30/24 13:24 Midodrine 5 Mg Tablet PO 09/27/24 21:59 TID PRN SBP < 100 or MAP < 65 Pharmacy Consult 1 each 08/23/24 08:21 Pharmacy To Consult Patient XX 09/22/24 08:20 PRN PRN Starting 24Hr Continuous/Intermittent Dialysis Sodium Chloride 3 ml 08/22/24 14:07 09/02/24 14:24 Sodium Chloride Rt Jing 0.9% 3 Ml Nebu INH 09/21/24 14:06 3 ml PRN PRN Administration SOLN Tamsulosin HCl 0.4 mg 09/02/24 21:00 Tamsulosin Hcl 0.4 Mg Capsule PO 10/02/24 20:59 HS KENNY Plan A 64-year-old male with significant past medical history of hypertension, insulin-dependent diabetes mellitus, CAD s/p PCI, HFrEF [EF 10 to 15%], CKD stage III, bilateral below-knee amputations, atrial fibrillation living in [facility] facility was brought to the hospital with chief complaints of worsening mentation, shortness of breath and generalized weakness for the past 2 days. # Acute on chronic kidney disease, stage IIIb, resolving Likely prerenal versus ATN in the setting of shock -Patient presented to the hospital with the complaints of shortness of breath worsening mentation and per patient's patient had abdominal pain and foul- smelling urine. -Baseline creatinine as of 07/2024 is 2.4 -On the day of admission, 08/21/2024, creatinine is 6.3 > 08/25, BUN 25, Cr 2.8 1 >08/26, BUN 18, Cr 2 >08/28, BUN 15, Cr 2.1 >08/29, BUN 30, Cr 2.8 -Urine analysis showed turbid urine with 2+ proteinuria, 3+ blood, 5180 RBC, 1928 WBC Plan -Patient got CRRT on 08/22 and one more session done on 08/23, HD on 08/26, 08/27, 08/29, 09/01 -will continue dialysis 2 times per week till patient renal functions come back to his normal baseline and makes adequate amount of urine output -Monitor renal functions and avoid nephrotoxic medications #Hypokalemia, resolved -On 09/01/2024, potassium is 3.4 -Recommend to monitor electrolytes and replete accordingly. # Hyperkalemia, resolved # Hyperphosphatemia, resolved # Lactic acidosis, resolved -Found to have potassium of 7.5 at the time of admission -Since 08/23/2024, Electrolytes are within normal limits #Acute encephalopathy 2/2 UTI #Chronic right parietal stroke #Shock #Acute hypoxic respiratory failure. #Complicated UTI #Chronic anemia #IDDM #Elevated LFT's To be treated per primary team Thank you for allowing us to involved in the care of the patient Patient plan of care was discussed with the attending physician, Dr. Marian Gates, PGY1 Attending Provider Attestation/Addendum Patient seen and examined with resident physician Dr. Pollard. Note reviewed, agree with findings and recommendations. Patient with sepsis and JADIEL. On broad-spectrum antibiotics. Patient received 2 conventional dialysis treatments and 2 CRRT treatment days. No urine output. I had a long conversation with the patient and he agreed for outpatient dialysis-twice weekly. Outpatient dialysis to be arranged. Hep panel and PPD negative Status post PermCath. Patient awaiting outpatient dialysis at [facility] unit. Unfortunately [facility] declined due to insurance reasons. Might need to go to [facility]. Next dialysis scheduled for Sunday. Decided to do twice weekly dialysis unless he is short of breath tomorrow.
--- NOTE | 2024-09-02 16:00 | PC.SS ---
SS follow up note; SS sent updated Clinicals and PT notes to Romy from [facility] in order to obtain auth, MANDI informed Romy that patient was pending Insurance approval from [facility] in [place].
--- NOTE | 2024-09-02 17:20 | ESPR_ITS ---
<Statement entered by Janee Velazquez MD - 09/05/24 08:51> I personally evaluated the patient examined patient history of ischemic cardiomyopathy chronic systolic heart failure ejection fraction of 40 to 45% range bilaterally patient continues to get dialysis with additional beta-yesika doses per heart rate and blood pressure and amiodarone to be continued evaluate the patient agree with treatment plan as documented by PGY . Documentation for date of: 09/02/24 Subjective Subjective Interval history: Patient is evaluated at the bedside, currently asymptomatic, saturating well on room air, pending placement to group home, case management working on securing dialysis chair. Patient is seen with isolation precautions due to VRE in urine. Exam Vital Signs Temp Pulse Resp BP Pulse Ox O2 Del Method O2 Flow Rate 97 F 62 18 122/84 98 Room Air 2 09/02/24 12:00 09/02/24 14:25 09/02/24 14:25 09/02/24 12:00 09/02/24 14:09/02/24 12:00 09/02/24 04:00 Narrative Exam General: AOx3, cooperative, in no acute distress HEENT: Atraumatic/normocephalic, RUPERT Heart: RRR, S1 and S2 without clicks or murmurs Lungs: Clear on auscultation bilaterally, no difficulty breathing Abdomen: Soft, nontender. Bowel sounds present on all quadrants Skin: Bilateral lower extremity BKAs, no edema or cyanosis noted. Right hand amputations digits 3-5. Neuro: No focal neurological deficits noted on appearance Objective Labs 09/02/24 05:10 09/02/24 05:10 Labs: Laboratory Results - last 24 hr 09/02/24 05:10 WBC 7.6 RBC 3.30 L Hgb 8.9 L Hct 27.9 L MCV 85 MCH 27.0 MCHC 31.9 RDW Std Deviation 61.5 H Plt Count 145 Neut % (Auto) 66 Lymph % (Auto) 19 [place] % (Auto) 9 Eos % (Auto) 3 Baso % (Auto) 1 Neut # (Auto) 5.0 Lymph # (Auto) 1.4 [place] # (Auto) 0.7 Eos # (Auto) 0.3 Baso # (Auto) 0.1 Immature Gran # (Auto) 0.16 H Absolute Nucleated RBC 0.00 Immature Gran % 2 H Nucleated RBC % 0 Sodium 137 Potassium 3.7 Chloride 100 Carbon Dioxide 30.9 Anion Gap 6 L BUN 20 Creatinine 1.8 H D Estim Creat Clear Calc 34.3 L eGFR 41 L BUN/Creatinine Ratio 11 L Glucose 163 H D Calculated Osmolality 280 Calcium 8.7 Corrected Calcium 9.5 Phosphorus 2.2 L Magnesium 1.9 Total Bilirubin 0.4 AST 13 ALT 16 Alkaline Phosphatase 71 Total Protein 5.5 L Albumin 3.0 L Globulin 2.5 Albumin/Globulin Ratio 1.2 ABG Interpretation ABG results: 08/21/24 08/21/24 08/22/24 20:24 23:24 04:35 ABG pH 7.26 L ABG pCO2 31 L ABG pO2 92 ABG HCO3 14 L ABG O2 Saturation 97 ABG Base Excess -12 L VBG pH 7.32 L 7.22 L VBG pCO2 30 L 35 L VBG pO2 66 H 85 H VBG Base Excess -10 L -12 L 08/24/24 08:40 ABG pH ABG pCO2 ABG pO2 ABG HCO3 ABG O2 Saturation ABG Base Excess VBG pH 7.36 VBG pCO2 31 L VBG pO2 80 H VBG Base Excess -8 L Quality Measures Quality Measures VTE prophylaxis Advance care planning discussed with:: patient Assessment & Plan Assessment Current Active Medications: Generic Name Dose Route Start Last Admin Trade Name Freq PRN Reason Stop Dose Admin Acetaminophen 650 mg 08/21/24 23:37 Acetaminophen 325 Mg Tablet PO 09/20/24 23:36 Q4HR PRN PAIN SCALE 1-3 (mild Acetaminophen 650 mg 08/21/24 23:37 Acetaminophen Supp 650 Mg Supp IN 09/20/24 23:36 Q4HR PRN PAIN SCALE 1-3 (mild Al Hydrox/Mg Hydrox/Simethicone 30 ml 08/22/24 00:31 Mg Hyd/Al Hyd/Stephy (Maalox Reg) Susp 30 Ml Udc PO 09/20/24 23:36 Q4HR PRN Heartburn or Upset Stomach Albuterol 2.5 mg 08/26/24 15:00 09/02/24 14:23 Albuterol Rt 2.5 Mg/0.5 Ml Nebu INH 09/25/24 14:59 2.5 mg Q8HRRT KENNY Administration Amiodarone HCl 200 mg 08/24/24 15:00 09/02/24 08:06 Amiodarone Hcl 200 Mg Tablet PO 09/23/24 14:59 200 mg QDAY KENNY Administration Apixaban 2.5 mg 09/02/24 21:00 Apixaban 2.5 Mg Tablet PO 10/02/24 20:59 BID KENNY Aspirin 81 mg 09/03/24 09:00 Aspirin Ec 81 Mg Tabec PO 10/03/24 08:59 QDAY KENNY Carvedilol 3.125 mg 08/28/24 17:30 09/02/24 08:06 Carvedilol 3.125 Mg Tablet PO 09/27/24 17:29 3.125 mg BIDWM KENNY Administration Citric Acid/Sodium Citrate 30 ml 08/24/24 21:00 09/02/24 08:05 Citric Acid/Sodium Citr 15 Ml Udc (Bicitra) PO 09/23/24 20:59 30 ml BID KENNY Administration Dextrose 25 ml 08/22/24 04:20 08/22/24 11:43 Dextrose 50%-Water Inj 50 Ml Syringe IV 09/21/24 04:19 25 ml Q15MIN PRN Administration BG 50-70 responsive npo pt Dextrose 50 ml 08/22/24 04:20 Dextrose 50%-Water Inj 50 Ml Syringe IV 09/21/24 04:19 Q15MIN PRN BG <50 OR BG <70 & pt unresponsive Ferrous Sulfate 325 mg 08/24/24 08:30 09/01/24 11:42 Ferrous Sulf 325 Mg Tablet PO 09/23/24 08:29 325 mg QOD KENNY Administration Heparin Sodium (Porcine) 3,500 unit 08/27/24 15:36 09/01/24 11:53 Heparin Sod Inj 1000 Unit/Ml Vial 10 Ml INDWELLCAT 09/10/24 15:35 3,500 unit PRN PRN Administration DIALYSIS Albumin Human 25 gm in 100 mls @ 100 mls/min 08/22/24 05:34 Albuminar-25 Ivpb IV PRN PRN DIALYSIS Insulin Human Lispro 0 unit 08/29/24 07:30 09/02/24 12:03 Insulin Lispro (Admelog) 1 Unit/0.01 Ml Unit SC 09/28/24 07:29 Not Given AC [facility] Protocol Magnesium Hydroxide 30 ml 08/21/24 23:37 Milk Of Magnesia Susp 30 Ml Udc PO 09/20/24 23:36 QDAY PRN CONSTIPATION Midodrine 5 mg 08/30/24 13:24 Midodrine 5 Mg Tablet PO 09/27/24 21:59 TID PRN SBP < 100 or MAP < 65 Pharmacy Consult 1 each 08/23/24 08:21 Pharmacy To Consult Patient RICHIE 09/22/24 08:20 PRN PRN Starting 24Hr Continuous/Intermittent Dialysis Sodium Chloride 3 ml 08/22/24 14:07 09/02/24 14:24 Sodium Chloride Rt Jing 0.9% 3 Ml Nebu INH 09/21/24 14:06 3 ml PRN PRN Administration SOLN Tamsulosin HCl 0.4 mg 09/02/24 21:00 Tamsulosin Hcl 0.4 Mg Capsule PO 10/02/24 20:59 HS KENNY Plan Patient is a 64-year-old male past medical history of HFrEF (EF 10-15%), ischemic cardiomyopathy, CKD IIIb, CAD s/p stents, atrial fibrillation, NSVT, hypertension, hyperlipidemia, IDDM2, and bilateral BKAs who was admitted to the ICU for cardiogenic shock and acute on chronic renal failure requiring vasopressor support and CRRT. Patient was noted to have severe bradycardia in 40s both in ED and en route to ED, given atropine x2 however bradycardia did not resolve, external pacing was initiated. Cardiology team consulted for severe bradycardia in setting of hyperkalemia 7.5. #Paroxysmal atrial fibrillation?now in sinus rhythm Patient has history of atrial fibrillation, presented with slow ventricular rate, symptomatic bradycardia, electrolyte abnormalities likely precipitating bradycardia, hyperkalemia requiring hemodialysis, now resolved, currently patient is not sinus rhythm, will continue amiodarone 200 mg daily. # Systolic CHF?now improved ejection fraction Patient had prior echocardiogram with a EF 15%, now repeat echocardiogram showed EF 40%, improvement in ejection fraction noted with medical management. Will continue carvedilol low-dose for GDMT, but due to concern for hypotension can also use midodrine to keep systolic pressure at least 100, and MAP above 60. - Monitor electrolytes, goal of K > 4 and Magnesium > 2 - reasonable to continue midodrine on discharge, can be discharged from cardiology standpoint, follow-up with overhauler outpatient within 2 weeks of discharge. #History of ventricular tachycardia #Severe bradycardia?now resolved Bradycardia secondary to hyperkalemia, unresponsive to medical management, bradycardia now resolved after hemodialysis, currently in sinus rhythm. #History of CKD progressing to ESRD -Management per nephrology, patient is pending outpatient dialysis chair placement #History of osteomyelitis status post BKA - Management per primary team Case discussed with overhauler Dr Marcus Montanez PGY2
[2024-09-02] MEDS: TAMSULOSIN HCL 0.4 MG CAPSULE PO (20:51)
[2024-09-02] MEDS: APIXABAN 2.5 MG TABLET PO (20:51)
[2024-09-03] VITALS (15 sets, daily range): BP systolic 98–122; BP diastolic 58–68; PULSE 55–71; RESP 17–97; TEMP 36.1–36.6; O2SAT 90–99; BMI 20.7
[2024-09-03 06:02] LABS: Basophils # (Auto) 0.1 Thou/mm3 (0.0-0.2); Basophils % (Auto) 1 % (0-2.5); Eosinophils # (Auto) 0.2 Thou/mm3 (0.0-0.5); Eosinophils % (Auto) 3 % (0-10); Hematocrit 29.4 % (41.0-53.0); Hemoglobin 9.4 g/dL (13.5-16.0); Immature Granulocytes % (Auto) 2 % (0-0); Immature Granulocytes Auto 0.14 Thou/mm3 (0.00-0.00); Lymphocytes # (Auto) 1.5 Thou/mm3 (1.0-4.8); Lymphocytes % (Auto) 19 % (10-50); Mean Corpuscular Hemoglobin 27.1 pg (25.0-35.0); Mean Corpuscular Volume 85 fL (80-100); Monocytes # (Auto) 0.6 Thou/mm3 (0.0-0.8); Monocytes % (Auto) 8 % (0-12); Neutrophils # (Auto) 5.5 Thou/mm3 (1.8-7.7); Neutrophils % (Auto) 69 % (37-80); Nucleated Red Blood Cell # 0.02 Thou/mm3 (0.00-0.00); Nucleated Red Blood Cell % 0 /100 WBC (0); Platelet Count 163 Thou/mm3 (140-440); RDW Standard Deviation 63.1 fL (35.1-43.9); Red Blood Count 3.47 Miln/mm3 (4.50-5.90)
[2024-09-03 06:34] LABS: Alanine Aminotransferase 16 U/L (10-49); Albumin/Globulin Ratio 1.2 (1.2-2.2); Alkaline Phosphatase 75 U/L (46-116); Anion Gap 7 (7-16); Aspartate Amino Transferase 17 U/L (0-34); BUN/Creatinine Ratio 12 Ratio (12-20); Bilirubin,Total 0.4 mg/dL (0.3-1.2); Blood Urea Nitrogen 25 mg/dL (9-23); Calcium 8.3 mg/dL (8.3-10.6); Calcium (Corrected) 9.1 mg/dL (8.5-10.1); Carbon Dioxide 32.9 mMol/L (20.0-31.0); Chloride 99 mMol/L (98-107); Creatinine (Component) 2.1 mg/dL (0.6-1.3); Estimated Creatinine Clearance 29.4 mL/min (>60); Globulin 2.6 gm/dL (2.3-3.5); Glucose 150 mg/dL (74-106); Magnesium 1.9 mg/dL (1.6-2.6); Osmolality,Calculated 284 (275-295); Sodium 139 mMol/L (136-145); Total Protein 5.6 gm/dL (5.7-8.2); eGFR 34 See Note
[2024-09-03] MEDS: ALBUTEROL RT 2.5 MG/0.5 ML NEBU INH ×3 (07:11→22:24)
[2024-09-03] MEDS: SODIUM CHLORIDE RT SOL 0.9% 3 ML NEBU INH ×2 (07:12→15:23)
[2024-09-03] MEDS: carVEDILOL 3.125 MG TABLET PO ×2 (08:08→17:04)
[2024-09-03] MEDS: CITRIC ACID/SODIUM CITR 15 ML UDC (BICITRA) 30 ML PO ×2 (08:08→20:09)
[2024-09-03] MEDS: ASPIRIN EC 81 MG TABEC PO (08:08)
[2024-09-03] MEDS: AMIODARONE HCL 200 MG TABLET PO (08:09)
[2024-09-03] MEDS: APIXABAN 2.5 MG TABLET PO ×2 (08:10→20:11)
[2024-09-03] MEDS: FERROUS SULF 325 MG TABLET PO (08:10)
--- NOTE | 2024-09-03 09:15 | CHAP ---
Visited with patient giving encouragement and prayer.
[2024-09-03] MEDS: INSULIN LISPRO (AdmeLOG) 1 UNIT/0.01 ML UNIT SC ×2 (11:13→17:03)
--- NOTE | 2024-09-03 13:36 | ESPR_ITS ---
<Statement entered by Janee Velazquez MD - 09/05/24 08:52> I personally evaluated the patient examined patient history of ischemic cardiomyopathy chronic systolic heart failure ejection fraction of 40 to 45% range bilaterally patient continues to get dialysis with additional beta-yesika doses per heart rate and blood pressure and amiodarone to be continued evaluate the patient agree with treatment plan as documented by PGY . the patient is normal sinus rhythm no evidence of VT or A-fib episodes Documentation for date of: 09/03/24 Subjective Subjective Interval history: Patient evaluated at bedside, asymptomatic, telemetry review shows heart rate dropped to 56 to 58 bpm mostly at night when patient asleep, patient asymptomatic, maintaining normal vitals, no chest pain or palpitations. At this point recommend continuing patient's Coreg and amiodarone, continue watch for symptoms, will consider reducing medication dosages if patient becomes symptomatic. Exam Vital Signs Temp Pulse Resp BP Pulse Ox O2 Del Method O2 Flow Rate 97.4 F 57 L 18 121/66 92 L Room Air 2 09/03/24 12:00 09/03/24 12:00 09/03/24 12:00 09/03/24 12:00 09/03/24 12:00 09/03/24 12:00 09/02/24 04:00 Narrative Exam General: AOx3, cooperative, in no acute distress HEENT: Atraumatic/normocephalic, RUPERT Heart: RRR, S1 and S2 without clicks or murmurs Lungs: Clear on auscultation bilaterally, no difficulty breathing Abdomen: Soft, nontender. Bowel sounds present on all quadrants Skin: Bilateral lower extremity BKAs, no edema or cyanosis noted. Right hand amputations digits 3-5. Neuro: No focal neurological deficits noted on appearance Objective Labs 09/03/24 05:10 09/03/24 05:10 Labs: Laboratory Results - last 24 hr 09/03/24 05:10 WBC 8.0 RBC 3.47 L Hgb 9.4 L Hct 29.4 L MCV 85 MCH 27.1 MCHC 32.0 RDW Std Deviation 63.1 H Plt Count 163 Neut % (Auto) 69 Lymph % (Auto) 19 [place] % (Auto) 8 Eos % (Auto) 3 Baso % (Auto) 1 Neut # (Auto) 5.5 Lymph # (Auto) 1.5 [place] # (Auto) 0.6 Eos # (Auto) 0.2 Baso # (Auto) 0.1 Immature Gran # (Auto) 0.14 H Absolute Nucleated RBC 0.02 H Immature Gran % 2 H Nucleated RBC % 0 Sodium 139 Potassium 4.0 Chloride 99 Carbon Dioxide 32.9 H Anion Gap 7 BUN 25 H Creatinine 2.1 H Estim Creat Clear Calc 29.4 L eGFR 34 L BUN/Creatinine Ratio 12 Glucose 150 H Calculated Osmolality 284 Calcium 8.3 Corrected Calcium 9.1 Phosphorus 3.0 Magnesium 1.9 Total Bilirubin 0.4 AST 17 ALT 16 Alkaline Phosphatase 75 Total Protein 5.6 L Albumin 3.0 L Globulin 2.6 Albumin/Globulin Ratio 1.2 ABG Interpretation ABG results: 08/21/24 08/21/24 08/22/24 20:24 23:24 04:35 ABG pH 7.26 L ABG pCO2 31 L ABG pO2 92 ABG HCO3 14 L ABG O2 Saturation 97 ABG Base Excess -12 L VBG pH 7.32 L 7.22 L VBG pCO2 30 L 35 L VBG pO2 66 H 85 H VBG Base Excess -10 L -12 L 08/24/24 08:40 ABG pH ABG pCO2 ABG pO2 ABG HCO3 ABG O2 Saturation ABG Base Excess VBG pH 7.36 VBG pCO2 31 L VBG pO2 80 H VBG Base Excess -8 L Quality Measures Quality Measures VTE prophylaxis Advance care planning discussed with:: patient Assessment & Plan Assessment Current Active Medications: Generic Name Dose Route Start Last Admin Trade Name Freq PRN Reason Stop Dose Admin Acetaminophen 650 mg 08/21/24 23:37 Acetaminophen 325 Mg Tablet PO 09/20/24 23:36 Q4HR PRN PAIN SCALE 1-3 (mild Acetaminophen 650 mg 08/21/24 23:37 Acetaminophen Supp 650 Mg Supp CO 09/20/24 23:36 Q4HR PRN PAIN SCALE 1-3 (mild Al Hydrox/Mg Hydrox/Simethicone 30 ml 08/22/24 00:31 Mg Hyd/Al Hyd/Stephy (Maalox Reg) Susp 30 Ml Udc PO 09/20/24 23:36 Q4HR PRN Heartburn or Upset Stomach Albuterol 2.5 mg 08/26/24 15:00 09/03/24 07:11 Albuterol Rt 2.5 Mg/0.5 Ml Nebu INH 09/25/24 14:59 2.5 mg Q8HRRT KENNY Administration Amiodarone HCl 200 mg 08/24/24 15:00 09/03/24 08:09 Amiodarone Hcl 200 Mg Tablet PO 09/23/24 14:59 200 mg QDAY KENNY Administration Apixaban 2.5 mg 09/02/24 21:00 09/03/24 08:10 Apixaban 2.5 Mg Tablet PO 10/02/24 20:59 2.5 mg BID KENNY Administration Aspirin 81 mg 09/03/24 09:00 09/03/24 08:08 Aspirin Ec 81 Mg Tabec PO 10/03/24 08:59 81 mg QDAY KENNY Administration Carvedilol 3.125 mg 08/28/24 17:30 09/03/24 08:08 Carvedilol 3.125 Mg Tablet PO 09/27/24 17:29 3.125 mg BIDWM KENNY Administration Citric Acid/Sodium Citrate 30 ml 08/24/24 21:00 09/03/24 08:08 Citric Acid/Sodium Citr 15 Ml Udc (Bicitra) PO 09/23/24 20:59 30 ml BID KENNY Administration Dextrose 25 ml 08/22/24 04:20 08/22/24 11:43 Dextrose 50%-Water Inj 50 Ml Syringe IV 09/21/24 04:19 25 ml Q15MIN PRN Administration BG 50-70 responsive npo pt Dextrose 50 ml 08/22/24 04:20 Dextrose 50%-Water Inj 50 Ml Syringe IV 09/21/24 04:19 Q15MIN PRN BG <50 OR BG <70 & pt unresponsive Ferrous Sulfate 325 mg 08/24/24 08:30 09/03/24 08:10 Ferrous Sulf 325 Mg Tablet PO 09/23/24 08:29 325 mg QOD KENNY Administration Heparin Sodium (Porcine) 3,500 unit 08/27/24 15:36 09/01/24 11:53 Heparin Sod Inj 1000 Unit/Ml Vial 10 Ml INDWELLCAT 09/10/24 15:35 3,500 unit PRN PRN Administration DIALYSIS Albumin Human 25 gm in 100 mls @ 100 mls/min 08/22/24 05:34 Albuminar-25 Ivpb IV PRN PRN DIALYSIS Insulin Human Lispro 0 unit 08/29/24 07:30 09/03/24 11:13 Insulin Lispro (Admelog) 1 Unit/0.01 Ml Unit SC 09/28/24 07:29 2 unit AC KENNY Administration Protocol Magnesium Hydroxide 30 ml 08/21/24 23:37 Milk Of Magnesia Susp 30 Ml Udc PO 09/20/24 23:36 QDAY PRN CONSTIPATION Midodrine 5 mg 08/30/24 13:24 Midodrine 5 Mg Tablet PO 09/27/24 21:59 TID PRN SBP < 100 or MAP < 65 Pharmacy Consult 1 each 08/23/24 08:21 Pharmacy To Consult Patient XX 09/22/24 08:20 PRN PRN Starting 24Hr Continuous/Intermittent Dialysis Sodium Chloride 3 ml 08/22/24 14:07 09/03/24 07:12 Sodium Chloride Rt Jing 0.9% 3 Ml Nebu INH 09/21/24 14:06 3 ml PRN PRN Administration SOLN Tamsulosin HCl 0.4 mg 09/02/24 21:00 09/02/24 20:51 Tamsulosin Hcl 0.4 Mg Capsule PO 10/02/24 20:59 0.4 mg HS KENNY Administration Plan Patient is a 64-year-old male past medical history of HFrEF (EF 10-15%), ischemic cardiomyopathy, CKD IIIb, CAD s/p stents, atrial fibrillation, NSVT, hypertension, hyperlipidemia, IDDM2, and bilateral BKAs who was admitted to the ICU for cardiogenic shock and acute on chronic renal failure requiring vasopressor support and CRRT. Patient was noted to have severe bradycardia in 40s both in ED and en route to ED, given atropine x2 however bradycardia did not resolve, external pacing was initiated. Cardiology team consulted for severe bradycardia in setting of hyperkalemia 7.5. #Paroxysmal atrial fibrillation?now in sinus rhythm Patient has history of atrial fibrillation, presented with slow ventricular rate, symptomatic bradycardia, electrolyte abnormalities likely precipitating bradycardia, hyperkalemia requiring hemodialysis, now resolved, currently patient is not sinus rhythm, will continue amiodarone 200 mg daily. - Telemetry review shows heart rate dropped to 56 to 58 bpm mostly at night when patient asleep, patient asymptomatic, maintaining normal vitals, no chest pain or palpitations. At this point recommend continuing patient's Coreg and amiodarone, continue watch for symptoms, will consider reducing medication dosages if patient becomes symptomatic. # Systolic CHF?now improved ejection fraction Patient had prior echocardiogram with a EF 15%, now repeat echocardiogram showed EF 40%, improvement in ejection fraction noted with medical management. Will continue carvedilol low-dose for GDMT, but due to concern for hypotension can also use midodrine to keep systolic pressure at least 100, and MAP above 60. - Monitor electrolytes, goal of K > 4 and Magnesium > 2 - reasonable to continue midodrine on discharge, can be discharged from cardiology standpoint, follow-up with compensation administrator outpatient within 2 weeks of discharge. #History of ventricular tachycardia #Severe bradycardia?now resolved - Bradycardia secondary to hyperkalemia, unresponsive to medical management, bradycardia now resolved after hemodialysis, currently in sinus rhythm. - Telemetry review shows heart rate dropped to 56 to 58 bpm mostly at night when patient asleep, patient asymptomatic, maintaining normal vitals, no chest pain or palpitations. At this point recommend continuing patient's Coreg and amiodarone, continue watch for symptoms, will consider reducing medication dosages if patient becomes symptomatic. #History of CKD progressing to ESRD - Management per nephrology, patient is pending outpatient dialysis chair placement #History of osteomyelitis status post BKA - Management per primary team Case discussed with compensation administrator Dr Marcus Montanez PGY2
--- NOTE | 2024-09-03 13:51 | PC.SS ---
Addendum entered by Silvia Sykes 09/03/24 16:28: SS follow up note; SS met with patient, he was very upset at . SS informed him that it was out of SS control and that [facility] does not accept his insurance. SS informed patient that SS would contact his to update her. SS contacted patient's and she informed SS she was going to contact primary Insurance to see if she is able to switch his medicare to primary. Patient's verbalized understanding and informed SS she would contact SS tomorrow. SS also contacted Registration to see why patients medicare was not primary. Registration reported that patient's primary and it's through his employer and is primary insurance. Addendum entered by Silvia Sykes 09/03/24 15:48: SS contacted [facility] [place] and they informed SS that email was received and cooperate office denied patient. SS submitted through [employer]. SS will meet with patient and inform him he was not approved at [facility]. Original Note: SS follow up note; SS contacted [facility] [place] and they informed SS that they have not received an update from cooperate office however they would contact them and then contact SS.
--- NOTE | 2024-09-03 15:53 | PD.RESPRO ---
Documentation for date of: 09/03/24 Subjective Subjective Interval history: Patient seen and examined at bedside this morning. No acute overnight events. Patient with ~450cc urine output/24hours. He is having bowel movements, tolerating diet however states he lost his appetite after receiving bicitra due to the taste. Will request RNs to give medication after breakfast. Vitals & labs stable. Currently pending outpatient HD chair. Will follow up with CM team. Patient endorses feeling cold this morning, and requested a warm blanket. Remainder of ROS negative. Exam Vital Signs Temp Pulse Resp BP Pulse Ox O2 Del Method O2 Flow Rate 97.4 F 64 18 121/66 98 Room Air 2 09/03/24 12:00 09/03/24 15:30 09/03/24 15:30 09/03/24 12:00 09/03/24 15:30 09/03/24 12:00 09/02/24 04:00 Narrative Exam GENERAL: A&Ox3 . awake, ill appearing elderly male, pleasant to speak with NEURO: CN 2-12 grossly normal but not formally tested; no focal neurological deficits HEENT: Atraumatic, Normocephalic. mucous membranes moist. Eyes open, symmetrical, & clear, tunneled dialysis cath in place, dressing clean and dry. Mild ecchymosis noted on neck HEART: Normal S1, S2; RRR; no MRG appreciated LUNGS: Clear to auscultation with no wheezing or crackles. ABDOMEN: soft, non-distended, non-tender, bowel sounds heard, no guarding or rebound tenderness SKIN: No Rash or ecchymoses EXTREMITIES: bilateral BKA, amputation of the digits 3,4,5 of the right hand Objective Labs 09/03/24 05:10 09/04/24 05:53 Labs: Laboratory Results - last 24 hr 09/03/24 05:10 WBC 8.0 RBC 3.47 L Hgb 9.4 L Hct 29.4 L MCV 85 MCH 27.1 MCHC 32.0 RDW Std Deviation 63.1 H Plt Count 163 Neut % (Auto) 69 Lymph % (Auto) 19 [place] % (Auto) 8 Eos % (Auto) 3 Baso % (Auto) 1 Neut # (Auto) 5.5 Lymph # (Auto) 1.5 [place] # (Auto) 0.6 Eos # (Auto) 0.2 Baso # (Auto) 0.1 Immature Gran # (Auto) 0.14 H Absolute Nucleated RBC 0.02 H Immature Gran % 2 H Nucleated RBC % 0 Sodium 139 Potassium 4.0 Chloride 99 Carbon Dioxide 32.9 H Anion Gap 7 BUN 25 H Creatinine 2.1 H Estim Creat Clear Calc 29.4 L eGFR 34 L BUN/Creatinine Ratio 12 Glucose 150 H Calculated Osmolality 284 Calcium 8.3 Corrected Calcium 9.1 Phosphorus 3.0 Magnesium 1.9 Total Bilirubin 0.4 AST 17 ALT 16 Alkaline Phosphatase 75 Total Protein 5.6 L Albumin 3.0 L Globulin 2.6 Albumin/Globulin Ratio 1.2 ABG Interpretation ABG results: 08/21/24 08/21/24 08/22/24 20:24 23:24 04:35 ABG pH 7.26 L ABG pCO2 31 L ABG pO2 92 ABG HCO3 14 L ABG O2 Saturation 97 ABG Base Excess -12 L VBG pH 7.32 L 7.22 L VBG pCO2 30 L 35 L VBG pO2 66 H 85 H VBG Base Excess -10 L -12 L 08/24/24 08:40 ABG pH ABG pCO2 ABG pO2 ABG HCO3 ABG O2 Saturation ABG Base Excess VBG pH 7.36 VBG pCO2 31 L VBG pO2 80 H VBG Base Excess -8 L Quality Measures Quality Measures VTE prophylaxis Advance care planning discussed with:: patient and spouse Assessment & Plan Assessment Current Active Medications: Generic Name Dose Route Start Last Admin Trade Name Freq PRN Reason Stop Dose Admin Acetaminophen 650 mg 08/21/24 23:37 Acetaminophen 325 Mg Tablet PO 09/20/24 23:36 Q4HR PRN PAIN SCALE 1-3 (mild Acetaminophen 650 mg 08/21/24 23:37 Acetaminophen Supp 650 Mg Supp MI 09/20/24 23:36 Q4HR PRN PAIN SCALE 1-3 (mild Al Hydrox/Mg Hydrox/Simethicone 30 ml 08/22/24 00:31 Mg Hyd/Al Hyd/Stephy (Maalox Reg) Susp 30 Ml Udc PO 09/20/24 23:36 Q4HR PRN Heartburn or Upset Stomach Albuterol 2.5 mg 08/26/24 15:00 09/03/24 15:23 Albuterol Rt 2.5 Mg/0.5 Ml Nebu INH 09/25/24 14:59 2.5 mg Q8HRRT KENNY Administration Amiodarone HCl 200 mg 08/24/24 15:00 09/03/24 08:09 Amiodarone Hcl 200 Mg Tablet PO 09/23/24 14:59 200 mg QDAY KENNY Administration Apixaban 2.5 mg 09/02/24 21:00 09/03/24 08:10 Apixaban 2.5 Mg Tablet PO 10/02/24 20:59 2.5 mg BID KENNY Administration Aspirin 81 mg 09/03/24 09:00 09/03/24 08:08 Aspirin Ec 81 Mg Tabec PO 10/03/24 08:59 81 mg QDAY KENNY Administration Carvedilol 3.125 mg 08/28/24 17:30 09/03/24 08:08 Carvedilol 3.125 Mg Tablet PO 09/27/24 17:29 3.125 mg BIDWM KENNY Administration Citric Acid/Sodium Citrate 30 ml 09/03/24 15:52 Citric Acid/Sodium Citr 15 Ml Udc (Bicitra) PO 09/23/24 20:59 BID KENNY Dextrose 25 ml 08/22/24 04:20 08/22/24 11:43 Dextrose 50%-Water Inj 50 Ml Syringe IV 09/21/24 04:19 25 ml Q15MIN PRN Administration BG 50-70 responsive npo pt Dextrose 50 ml 08/22/24 04:20 Dextrose 50%-Water Inj 50 Ml Syringe IV 09/21/24 04:19 Q15MIN PRN BG <50 OR BG <70 & pt unresponsive Ferrous Sulfate 325 mg 08/24/24 08:30 09/03/24 08:10 Ferrous Sulf 325 Mg Tablet PO 09/23/24 08:29 325 mg QOD KENNY Administration Heparin Sodium (Porcine) 3,500 unit 08/27/24 15:36 09/01/24 11:53 Heparin Sod Inj 1000 Unit/Ml Vial 10 Ml INDWELLCAT 09/10/24 15:35 3,500 unit PRN PRN Administration DIALYSIS Albumin Human 25 gm in 100 mls @ 100 mls/min 08/22/24 05:34 Albuminar-25 Ivpb IV PRN PRN DIALYSIS Insulin Human Lispro 0 unit 08/29/24 07:30 09/03/24 11:13 Insulin Lispro (Admelog) 1 Unit/0.01 Ml Unit SC 09/28/24 07:29 2 unit AC KENNY Administration Protocol Magnesium Hydroxide 30 ml 08/21/24 23:37 Milk Of Magnesia Susp 30 Ml Udc PO 09/20/24 23:36 QDAY PRN CONSTIPATION Midodrine 5 mg 08/30/24 13:24 Midodrine 5 Mg Tablet PO 09/27/24 21:59 TID PRN SBP < 100 or MAP < 65 Pharmacy Consult 1 each 08/23/24 08:21 Pharmacy To Consult Patient XX 09/22/24 08:20 PRN PRN Starting 24Hr Continuous/Intermittent Dialysis Sodium Chloride 3 ml 08/22/24 14:07 09/03/24 15:23 Sodium Chloride Rt Jing 0.9% 3 Ml Nebu INH 09/21/24 14:06 3 ml PRN PRN Administration SOLN Tamsulosin HCl 0.4 mg 09/02/24 21:00 09/02/24 20:51 Tamsulosin Hcl 0.4 Mg Capsule PO 10/02/24 20:59 0.4 mg HS KENNY Administration Plan Mr. Galdamez is a 64-year-old male with a past medical history of hypertension, hyperlipidemia, CKD stage IIIb, diabetes, bilateral BKA's, A-fib, CAD status post stent, HFrEF with ejection fraction 10 to 15% who presented to the ED on 08/21/[facility] with altered mental status and generalized weakness. #ESRD #New onset hemodialysis post tunneled dialysis catheter, 08/26 #Worsening JADIEL on CKD required CRRT, now ESRD #Lactic acidosis -improved #Hyperkalemia - resolved -creatinine on admission 6.3, GFR 9, lactic acid 5.1, potassium on admission 7.5 -During this ICU admission pt is started on CRRT -Pt underwent permanent tunneled dialysis catheter, per nephrology recs pt will need to undergo HD dialysis 2x per week out patient -nephrology following -Pending insurance authorization for outpatient dialysis #Acute blood loss anemia, resolved #Iron deficiency anemia patient required 1 transfusion early in admission; not thought to be a GI bleed but moreso related to ESRD/lack of EPO => improved after Epo Iron panel: Iron 42, TIBC 235, Iron sat 17 and unsat Iron binding 193 FOBT negative Continue home FeSO4 qOD #UTI, resolved #hematuria, resolved #pyuria, resolved -On admission, Urinalysis is positive for leukocyte esterace, urine rbc 5180, urine wbc 1928 -urine culture show no growth initially -Repeat urine cultures on 08/28 grew VRE however patient is asymptomatic; labs/vitals do not reflect a current infection => likely colonization -Pt completed ceftriaoxone 08/27-08/30 #Cardiogenic shock- resolved #symptomatic bradycardia 2/2 to hyperkalemia #HFrEF (10-15%, improved to 40%) -On admission pt was found to have bradycardia with HR in 40's, atropine x2 was given in the ED -Due to hypotension with BP of 77/55 and MAP <65, pt was started on levophed and dopamine drips, eventually weaned off on 08/24 -Per cardiology-ICD not indicated in patient for following reasons: Patient has NYHA Class IV with drug-refractory CHF, reasonable expectation of survival with an acceptable functional status < 6 months -Per cardiology, patient currently not a candidate for surgical intervention -On discharge, patient will benefit from GDMT optimized with Entresto if blood pressure tolerates. Currently BP is too soft to start GDMT, pt will need to follow up outpatient cardiology -Repeat echo results : Anteroseptal akinesis with moderate LV dysfunction approximate ejection fraction is 40%. Normal RV function normal PA pressure Mild to moderate mitral regurgitation Moderate TR -Cardio following -Started Coreg 3.25mg BID (parameters hold if SBP <100, HR <50, MAP <65) -Will hold off on adding ACEi/ARB due to possible kidney recovery #history of A-fib -Pt has history of a-fib and home meds include metoprolol, amiodarone and eliquis. CHADVASc score 4 and HAS-BLED 3 -NSR -Continue home amiodarone Qday; eliquis 2.5mg BID #insulin dependent Type 2 diabetes, uncontrolled #Hx of osteomylitis s/p bilaterally BKA -A1c 10.2 -Pt home medications include glargine 15 units BID -insulin sliding scale started -hypoglycemic protocol in place -Pt underwent bilateral BKA due to long standing uncontrolled T2DM #BPH resumed home flomax #Transiminitis - resolved -On admission AST and ALT mildy elevated, T. bili and ALP with in normal range. -Likely secondary to shock, will continue to monitor as shock has now resolved. Health Maintenance Disposition: telemetry DVT Prophylaxis: eliquis 2.5mg BID GI Prophylaxis: not indicated Diet: renal + glucerna Lines: Peripheral lines Code status: DNR Patient seen and care discussed with my attending Dr. Raman. Jasiel Aggarwal MD PGY-3 Attending Provider Attestation/Addendum I reviewed labs, imaging, EKG, home medications and prior available records. Face to face evaluation was performed by me. I have personally examined the patient and discussed assessment and plan with the IM team. I reviewed the resident note and agree with the plan with exceptions as below. Cardiogenic shock, resolved HFrEF EF 40% ESRD Hemodialysis status Hyperkalemia, resolved Continue hemodialysis per nephrology recommendations Pending authorization for hemodialysis chair Discussed with social worker health services: Declined dialysis in [place] for which she will search in nearby cities. Dose medications based on GFR Continue Coreg. No ACEI/ARBs in the setting of possible kidney recovery in the next few weeks
--- NOTE | 2024-09-03 17:06 | ESPR_ITS ---
Documentation for date of: 09/03/24 Subjective Subjective Interval history: Mr. Galdamez is a 64-year-old male with significant past medical history of hypertension, insulin-dependent diabetes mellitus, CAD s/p PCI, HFrEF [EF 10 to 15%], CKD stage III, bilateral below-knee amputations, atrial fibrillation [facility] in [facility] was brought to the hospital with chief complaints of worsening mentation, shortness of breath and generalized weakness for the past 2 days. Patient was noted to have heart rate dropped to 40s during transit time in the ambulance for which patient was externally paced and 2 doses of atropine was given without response. In the ED, patient was found to have heart rate of 40 with blood pressure of 80/45 mmHg for which cardiology was consulted for suspected AV block. Per perforator, there is no concern for AV block and patient was found to have junctional escape rhythm with underlying atrial fibrillation and recommended to start on Levophed and low-dose dopamine. Patient was admitted to ICU for further care. Also noted patient had decreased p.o. intake 2 days before the day of admission and abdominal discomfort. ED Course: -Initial vitals were blood pressure 111/58 mmHg, SpO2 79% with 15 L oxygen -Labs significant for Hb 8.3, potassium 7.5, bicarb 14, anion gap 19, BUN 85, creatinine 6.2, lactate 7. Urine analysis showed 5000 RBC and 2000 WBC. -Head CT was negative for acute hemorrhage and infarct. -Patient was admitted for shock requiring vasopressors Nephrology was consulted for acute on chronic kidney injury. 08/30/2024 Patient is seen and examined with at interventions from our side they have any questions bedside No acute overnight events and patient denies any other complaints Vitals are stable. Patient still appears to be oliguric Labs showed BUN 23, creatinine 2 Pending dialysis chair placement. 09/01/2024 Patient is seen and examined in dialysis unit No acute overnight events. Denies any other complaints Vitals are stable. Physical examination remains unchanged Labs showed WBC 7.9, Hb 9.1, sodium 138, potassium 3.4, BUN 36, creatinine 2.5 Still pending outpatient dialysis chair placement. Patient is tolerating dialysis well 09/02/2024 Patient is seen and examined at the bedside No acute overnight events. Denies any other complaints Vitals are stable. Physical examination remains unchanged Urine output is 300ml and seems to be improving Labs showed WBC 7.6, Hb 8.9, BUN 20, Cr 1.8 09/03/2024 Patient is seen and examined at the bedside. No acute overnight events. Denies any other complaints. Vitals are stable and physical examination remains unchanged Patient is still oliguric. Labs showed WBC 8, Hb 9.4, sodium 139, potassium 4, bicarb 22.9, BUN 25, creatinine 2.1 Next dialysis will be scheduled on sunday Still pending discharge placement Exam Vital Signs Temp Pulse Resp BP Pulse Ox O2 Del Method O2 Flow Rate 97.4 F 61 18 121/68 98 Room Air 2 09/03/24 12:00 09/03/24 17:04 09/03/24 15:30 09/03/24 17:04 09/03/24 15:30 09/03/24 12:00 09/02/24 04:00 Narrative Exam General: Awake. Lying comfortably on the bed HEENT: Normocephalic, atraumatic, mucous membranes moist. Heart: Regular rate and rhythm, no murmurs. Lungs: Clear to auscultation with no wheezing or crackles. Right tunneled dialysis catheter Abdomen: Soft, nondistended, nontender, positive bowel sounds. ?No guarding or rebound tenderness. Neurologic: Alert and oriented x3, no gross neurological deficit, and patient able to move all 4 extremities. Extremities: No edema. 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 B/L BKA Skin: No rash or ecchymoses. Objective Labs 09/03/24 05:10 09/04/24 05:53 Labs: Laboratory Results - last 24 hr 09/03/24 05:10 WBC 8.0 RBC 3.47 L Hgb 9.4 L Hct 29.4 L MCV 85 MCH 27.1 MCHC 32.0 RDW Std Deviation 63.1 H Plt Count 163 Neut % (Auto) 69 Lymph % (Auto) 19 [place] % (Auto) 8 Eos % (Auto) 3 Baso % (Auto) 1 Neut # (Auto) 5.5 Lymph # (Auto) 1.5 [place] # (Auto) 0.6 Eos # (Auto) 0.2 Baso # (Auto) 0.1 Immature Gran # (Auto) 0.14 H Absolute Nucleated RBC 0.02 H Immature Gran % 2 H Nucleated RBC % 0 Sodium 139 Potassium 4.0 Chloride 99 Carbon Dioxide 32.9 H Anion Gap 7 BUN 25 H Creatinine 2.1 H Estim Creat Clear Calc 29.4 L eGFR 34 L BUN/Creatinine Ratio 12 Glucose 150 H Calculated Osmolality 284 Calcium 8.3 Corrected Calcium 9.1 Phosphorus 3.0 Magnesium 1.9 Total Bilirubin 0.4 AST 17 ALT 16 Alkaline Phosphatase 75 Total Protein 5.6 L Albumin 3.0 L Globulin 2.6 Albumin/Globulin Ratio 1.2 ABG Interpretation ABG results: 08/21/24 08/21/24 08/22/24 20:24 23:24 04:35 ABG pH 7.26 L ABG pCO2 31 L ABG pO2 92 ABG HCO3 14 L ABG O2 Saturation 97 ABG Base Excess -12 L VBG pH 7.32 L 7.22 L VBG pCO2 30 L 35 L VBG pO2 66 H 85 H VBG Base Excess -10 L -12 L 08/24/24 08:40 ABG pH ABG pCO2 ABG pO2 ABG HCO3 ABG O2 Saturation ABG Base Excess VBG pH 7.36 VBG pCO2 31 L VBG pO2 80 H VBG Base Excess -8 L Quality Measures Quality Measures VTE prophylaxis Advance care planning discussed with:: patient Assessment & Plan Assessment Current Active Medications: Generic Name Dose Route Start Last Admin Trade Name Freq PRN Reason Stop Dose Admin Acetaminophen 650 mg 08/21/24 23:37 Acetaminophen 325 Mg Tablet PO 09/20/24 23:36 Q4HR PRN PAIN SCALE 1-3 (mild Acetaminophen 650 mg 08/21/24 23:37 Acetaminophen Supp 650 Mg Supp MA 09/20/24 23:36 Q4HR PRN PAIN SCALE 1-3 (mild Al Hydrox/Mg Hydrox/Simethicone 30 ml 08/22/24 00:31 Mg Hyd/Al Hyd/Stephy (Maalox Reg) Susp 30 Ml Udc PO 09/20/24 23:36 Q4HR PRN Heartburn or Upset Stomach Albuterol 2.5 mg 08/26/24 15:00 09/03/24 15:23 Albuterol Rt 2.5 Mg/0.5 Ml Nebu INH 09/25/24 14:59 2.5 mg Q8HRRT KENNY Administration Amiodarone HCl 200 mg 08/24/24 15:00 09/03/24 08:09 Amiodarone Hcl 200 Mg Tablet PO 09/23/24 14:59 200 mg QDAY KENNY Administration Apixaban 2.5 mg 09/02/24 21:00 09/03/24 08:10 Apixaban 2.5 Mg Tablet PO 10/02/24 20:59 2.5 mg BID KENNY Administration Aspirin 81 mg 09/03/24 09:00 09/03/24 08:08 Aspirin Ec 81 Mg Tabec PO 10/03/24 08:59 81 mg QDAY KENNY Administration Carvedilol 3.125 mg 08/28/24 17:30 09/03/24 17:04 Carvedilol 3.125 Mg Tablet PO 09/27/24 17:29 3.125 mg BIDWM KENNY Administration Citric Acid/Sodium Citrate 30 ml 09/03/24 21:00 Citric Acid/Sodium Citr 15 Ml Udc (Bicitra) PO 10/03/24 20:59 BID KENNY Dextrose 25 ml 08/22/24 04:20 08/22/24 11:43 Dextrose 50%-Water Inj 50 Ml Syringe IV 09/21/24 04:19 25 ml Q15MIN PRN Administration BG 50-70 responsive npo pt Dextrose 50 ml 08/22/24 04:20 Dextrose 50%-Water Inj 50 Ml Syringe IV 09/21/24 04:19 Q15MIN PRN BG <50 OR BG <70 & pt unresponsive Ferrous Sulfate 325 mg 08/24/24 08:30 09/03/24 08:10 Ferrous Sulf 325 Mg Tablet PO 09/23/24 08:29 325 mg QOD KENNY Administration Heparin Sodium (Porcine) 3,500 unit 08/27/24 15:36 09/01/24 11:53 Heparin Sod Inj 1000 Unit/Ml Vial 10 Ml INDWELLCAT 09/10/24 15:35 3,500 unit PRN PRN Administration DIALYSIS Albumin Human 25 gm in 100 mls @ 100 mls/min 08/22/24 05:34 Albuminar-25 Ivpb IV PRN PRN DIALYSIS Insulin Human Lispro 0 unit 08/29/24 07:30 09/03/24 17:03 Insulin Lispro (Admelog) 1 Unit/0.01 Ml Unit SC 09/28/24 07:29 3 unit AC KENNY Administration Protocol Magnesium Hydroxide 30 ml 08/21/24 23:37 Milk Of Magnesia Susp 30 Ml Udc PO 09/20/24 23:36 QDAY PRN CONSTIPATION Midodrine 5 mg 08/30/24 13:24 Midodrine 5 Mg Tablet PO 09/27/24 21:59 TID PRN SBP < 100 or MAP < 65 Pharmacy Consult 1 each 08/23/24 08:21 Pharmacy To Consult Patient XX 09/22/24 08:20 PRN PRN Starting 24Hr Continuous/Intermittent Dialysis Sodium Chloride 3 ml 08/22/24 14:07 09/03/24 15:23 Sodium Chloride Rt Jing 0.9% 3 Ml Nebu INH 09/21/24 14:06 3 ml PRN PRN Administration SOLN Tamsulosin HCl 0.4 mg 09/02/24 21:00 09/02/24 20:51 Tamsulosin Hcl 0.4 Mg Capsule PO 10/02/24 20:59 0.4 mg HS KENNY Administration Plan A 64-year-old male with significant past medical history of hypertension, insulin-dependent diabetes mellitus, CAD s/p PCI, HFrEF [EF 10 to 15%], CKD stage III, bilateral below-knee amputations, atrial fibrillation living in [facility] was brought to the hospital with chief complaints of worsening mentation, shortness of breath and generalized weakness for the past 2 days. # Acute on chronic kidney disease, stage IIIb, resolving Likely prerenal versus ATN in the setting of shock -Patient presented to the hospital with the complaints of shortness of breath worsening mentation and per patient's patient had abdominal pain and foul- smelling urine. -Baseline creatinine as of 07/2024 is 2.4 -On the day of admission, 08/21/2024, creatinine is 6.3 > 08/25, BUN 25, Cr 2.8 1 >08/26, BUN 18, Cr 2 >08/28, BUN 15, Cr 2.1 >08/29, BUN 30, Cr 2.8 -Urine analysis showed turbid urine with 2+ proteinuria, 3+ blood, 5180 RBC, 1928 WBC Plan -Patient got CRRT on 08/22 and one more session done on 08/23, HD on 08/26, 08/27, 08/29, 09/01 -will continue dialysis 2 times per week till patient renal functions come back to his normal baseline and makes adequate amount of urine output -Monitor renal functions and avoid nephrotoxic medications #Hypokalemia, resolved -On 09/01/2024, potassium is 3.4 -Recommend to monitor electrolytes and replete accordingly. # Hyperkalemia, resolved # Hyperphosphatemia, resolved # Lactic acidosis, resolved -Found to have potassium of 7.5 at the time of admission -Since 08/23/2024, Electrolytes are within normal limits #Acute encephalopathy 2/2 UTI #Chronic right parietal stroke #Shock #Acute hypoxic respiratory failure. #Complicated UTI #Chronic anemia #IDDM #Elevated LFT's To be treated per primary team Thank you for allowing us to involved in the care of the patient Patient plan of care was discussed with the attending physician, Dr. Marian Gates, PGY1 Attending Provider Attestation/Addendum Patient seen and examined with resident physician Dr. Pollard. Note reviewed, agree with findings and recommendations. Patient with sepsis and JADIEL. On broad-spectrum antibiotics. Patient received 2 conventional dialysis treatments and 2 CRRT treatment days. No urine output. I had a long conversation with the patient and he agreed for outpatient dialysis-twice weekly. Outpatient dialysis to be arranged. Hep panel and PPD negative Status post PermCath. Patient awaiting outpatient dialysis at [facility] unit. Unfortunately [facility] declined due to insurance reasons. Might need to go to [facility]. Next dialysis scheduled for Sunday. Decided to do twice weekly dialysis unless he is short of breath tomorrow.
[2024-09-03] MEDS: TAMSULOSIN HCL 0.4 MG CAPSULE PO (20:11)
[2024-09-04] VITALS (14 sets, daily range): BP systolic 107–131; BP diastolic 58–77; PULSE 57–74; RESP 18–96; TEMP 36–36.9; O2SAT 91–99
[2024-09-04 06:32] LABS: Magnesium 1.8 mg/dL (1.6-2.6); Phosphorous 3.2 mg/dL (2.4-5.1)
[2024-09-04] MEDS: SODIUM CHLORIDE RT SOL 0.9% 3 ML NEBU INH ×3 (07:07→23:23)
[2024-09-04] MEDS: ALBUTEROL RT 2.5 MG/0.5 ML NEBU INH ×3 (07:07→23:23)
[2024-09-04 07:26] LABS: Albumin, Serum 3.2 gm/dL (3.4-4.8); Anion Gap 12 (7-16); BUN/Creatinine Ratio 13 Ratio (12-20); Blood Urea Nitrogen 29 mg/dL (9-23); Calcium 8.1 mg/dL (8.3-10.6); Calcium (Corrected) 8.7 mg/dL (8.5-10.1); Carbon Dioxide 29.5 mMol/L (20.0-31.0); Chloride 99 mMol/L (98-107); Creatinine (Component) 2.3 mg/dL (0.6-1.3); Estimated Creatinine Clearance 26.9 mL/min (>60); Glucose 167 mg/dL (74-106); Osmolality,Calculated 289 (275-295); Potassium 4.3 mMol/L (3.4-5.1); Sodium 140 mMol/L (136-145); eGFR 31 See Note
[2024-09-04] MEDS: carVEDILOL 3.125 MG TABLET PO ×2 (08:08→17:24)
[2024-09-04] MEDS: INSULIN LISPRO (AdmeLOG) 1 UNIT/0.01 ML UNIT SC ×2 (08:08→17:24)
[2024-09-04] MEDS: CITRIC ACID/SODIUM CITR 15 ML UDC (BICITRA) 30 ML PO (09:13)
[2024-09-04] MEDS: APIXABAN 2.5 MG TABLET PO ×2 (09:14→20:14)
[2024-09-04] MEDS: ASPIRIN EC 81 MG TABEC PO (09:14)
[2024-09-04] MEDS: AMIODARONE HCL 200 MG TABLET PO (09:14)
--- NOTE | 2024-09-04 10:42 | ESPR_ITS ---
<Statement entered by Janee Velazquez MD - 09/08/24 13:27> I personally examined the patient evaluated patient is doing much better now still undergoing dialysis for renal failure started back on amiodarone tolerating well and diuretics will be restarted if the patient does not have any dialysis renal function improving gradually evaluate the patient with PGY 2 Tino will continue to monitor the patient. Documentation for date of: 09/04/24 Subjective Subjective Interval history: The patient is evaluated the bedside, asymptomatic, noted bradycardia only during sleep, normal vitals. Continue same medications. Exam Vital Signs Temp Pulse Resp BP Pulse Ox O2 Del Method O2 Flow Rate 97.8 F 74 18 122/70 92 L Room Air 2 09/04/24 08:00 09/04/24 09:14 09/04/24 08:00 09/04/24 09:14 09/04/24 08:00 09/04/24 08:00 09/02/24 04:00 Narrative Exam General: AOx3, cooperative, in no acute distress HEENT: Atraumatic/normocephalic, RUPERT Heart: RRR, S1 and S2 without clicks or murmurs Lungs: Clear on auscultation bilaterally, no difficulty breathing Abdomen: Soft, nontender. Bowel sounds present on all quadrants Skin: Bilateral lower extremity BKAs, no edema or cyanosis noted. Right hand amputations digits 3-5. Neuro: No focal neurological deficits noted on appearance Objective Labs 09/05/24 05:54 09/05/24 05:54 Labs: Laboratory Results - last 24 hr 09/04/24 05:53 Sodium 140 Potassium 4.3 Chloride 99 Carbon Dioxide 29.5 Anion Gap 12 BUN 29 H Creatinine 2.3 H Estim Creat Clear Calc 26.9 L eGFR 31 L BUN/Creatinine Ratio 13 Glucose 167 H Calculated Osmolality 289 Calcium 8.1 L Corrected Calcium 8.7 Phosphorus 3.2 Magnesium 1.8 Albumin 3.2 L ABG Interpretation ABG results: 08/21/24 08/21/24 08/22/24 20:24 23:24 04:35 ABG pH 7.26 L ABG pCO2 31 L ABG pO2 92 ABG HCO3 14 L ABG O2 Saturation 97 ABG Base Excess -12 L VBG pH 7.32 L 7.22 L VBG pCO2 30 L 35 L VBG pO2 66 H 85 H VBG Base Excess -10 L -12 L 08/24/24 08:40 ABG pH ABG pCO2 ABG pO2 ABG HCO3 ABG O2 Saturation ABG Base Excess VBG pH 7.36 VBG pCO2 31 L VBG pO2 80 H VBG Base Excess -8 L Quality Measures Quality Measures VTE prophylaxis Advance care planning discussed with:: patient Assessment & Plan Assessment Current Active Medications: Generic Name Dose Route Start Last Admin Trade Name Freq PRN Reason Stop Dose Admin Acetaminophen 650 mg 08/21/24 23:37 Acetaminophen 325 Mg Tablet PO 09/20/24 23:36 Q4HR PRN PAIN SCALE 1-3 (mild Acetaminophen 650 mg 08/21/24 23:37 Acetaminophen Supp 650 Mg Supp [place] 09/20/24 23:36 Q4HR PRN PAIN SCALE 1-3 (mild Al Hydrox/Mg Hydrox/Simethicone 30 ml 08/22/24 00:31 Mg Hyd/Al Hyd/Stephy (Maalox Reg) Susp 30 Ml Udc PO 09/20/24 23:36 Q4HR PRN Heartburn or Upset Stomach Albuterol 2.5 mg 08/26/24 15:00 09/04/24 07:07 Albuterol Rt 2.5 Mg/0.5 Ml Nebu INH 09/25/24 14:59 2.5 mg Q8HRRT KENNY Administration Amiodarone HCl 200 mg 08/24/24 15:00 09/04/24 09:14 Amiodarone Hcl 200 Mg Tablet PO 09/23/24 14:59 200 mg QDAY KENNY Administration Apixaban 2.5 mg 09/02/24 21:00 09/04/24 09:14 Apixaban 2.5 Mg Tablet PO 10/02/24 20:59 2.5 mg BID KENNY Administration Aspirin 81 mg 09/03/24 09:00 09/04/24 09:14 Aspirin Ec 81 Mg Tabec PO 10/03/24 08:59 81 mg QDAY KENNY Administration Carvedilol 3.125 mg 08/28/24 17:30 09/04/24 08:08 Carvedilol 3.125 Mg Tablet PO 09/27/24 17:29 3.125 mg BIDWM KENNY Administration Citric Acid/Sodium Citrate 30 ml 09/03/24 21:00 09/04/24 09:13 Citric Acid/Sodium Citr 15 Ml Udc (Bicitra) PO 10/03/24 20:59 30 ml BID KENNY Administration Dextrose 25 ml 08/22/24 04:20 08/22/24 11:43 Dextrose 50%-Water Inj 50 Ml Syringe IV 09/21/24 04:19 25 ml Q15MIN PRN Administration BG 50-70 responsive npo pt Dextrose 50 ml 08/22/24 04:20 Dextrose 50%-Water Inj 50 Ml Syringe IV 09/21/24 04:19 Q15MIN PRN BG <50 OR BG <70 & pt unresponsive Ferrous Sulfate 325 mg 08/24/24 08:30 09/03/24 08:10 Ferrous Sulf 325 Mg Tablet PO 09/23/24 08:29 325 mg QOD KENNY Administration Heparin Sodium (Porcine) 3,500 unit 08/27/24 15:36 09/01/24 11:53 Heparin Sod Inj 1000 Unit/Ml Vial 10 Ml INDWELLCAT 09/10/24 15:35 3,500 unit PRN PRN Administration DIALYSIS Albumin Human 25 gm in 100 mls @ 100 mls/min 08/22/24 05:34 Albuminar-25 Ivpb IV PRN PRN DIALYSIS Insulin Human Lispro 0 unit 08/29/24 07:30 09/04/24 08:08 Insulin Lispro (Admelog) 1 Unit/0.01 Ml Unit SC 09/28/24 07:29 2 unit AC KENNY Administration Protocol Magnesium Hydroxide 30 ml 08/21/24 23:37 Milk Of Magnesia Susp 30 Ml Udc PO 09/20/24 23:36 QDAY PRN CONSTIPATION Midodrine 5 mg 08/30/24 13:24 Midodrine 5 Mg Tablet PO 09/27/24 21:59 TID PRN SBP < 100 or MAP < 65 Pharmacy Consult 1 each 08/23/24 08:21 Pharmacy To Consult Patient XX 09/22/24 08:20 PRN PRN Starting 24Hr Continuous/Intermittent Dialysis Sodium Chloride 3 ml 08/22/24 14:07 09/04/24 07:07 Sodium Chloride Rt Jing 0.9% 3 Ml Nebu INH 09/21/24 14:06 3 ml PRN PRN Administration SOLN Tamsulosin HCl 0.4 mg 09/02/24 21:00 09/03/24 20:11 Tamsulosin Hcl 0.4 Mg Capsule PO 10/02/24 20:59 0.4 mg HS KENNY Administration Plan Patient is a 64-year-old male past medical history of HFrEF (EF 10-15%), ischemic cardiomyopathy, CKD IIIb, CAD s/p stents, atrial fibrillation, NSVT, hypertension, hyperlipidemia, IDDM2, and bilateral BKAs who was admitted to the ICU for cardiogenic shock and acute on chronic renal failure requiring vasopressor support and CRRT. Patient was noted to have severe bradycardia in 40s both in ED and en route to ED, given atropine x2 however bradycardia did not resolve, external pacing was initiated. Cardiology team consulted for severe bradycardia in setting of hyperkalemia 7.5. #Paroxysmal atrial fibrillation?now in sinus rhythm Patient has history of atrial fibrillation, presented with slow ventricular rate, symptomatic bradycardia, electrolyte abnormalities likely precipitating bradycardia, hyperkalemia requiring hemodialysis, now resolved, currently patient is not sinus rhythm, will continue amiodarone 200 mg daily. - Telemetry review shows heart rate dropped to 56 to 58 bpm mostly at night when patient asleep, patient asymptomatic, maintaining normal vitals, no chest pain or palpitations. At this point recommend continuing patient's Coreg and amiodarone, continue watch for symptoms, will consider reducing medication dosages if patient becomes symptomatic. # Systolic CHF?now improved ejection fraction Patient had prior echocardiogram with a EF 15%, now repeat echocardiogram showed EF 40%, improvement in ejection fraction noted with medical management. Will continue carvedilol low-dose for GDMT, but due to concern for hypotension can also use midodrine to keep systolic pressure at least 100, and MAP above 60. - Monitor electrolytes, goal of K > 4 and Magnesium > 2 - reasonable to continue midodrine on discharge, can be discharged from cardiology standpoint, follow-up with senior ui ux developer outpatient within 2 weeks of discharge. #History of ventricular tachycardia #Severe bradycardia?now resolved - Bradycardia secondary to hyperkalemia, unresponsive to medical management, bradycardia now resolved after hemodialysis, currently in sinus rhythm. - Telemetry review shows heart rate dropped to 56 to 58 bpm mostly at night when patient asleep, patient asymptomatic, maintaining normal vitals, no chest pain or palpitations. At this point recommend continuing patient's Coreg and amiodarone, continue watch for symptoms, will consider reducing medication dosages if patient becomes symptomatic. #History of CKD progressing to ESRD - Management per nephrology, patient is pending outpatient dialysis chair placement #History of osteomyelitis status post BKA - Management per primary team Case discussed with senior ui ux developer Dr Marcus Montanez PGY2
--- NOTE | 2024-09-04 11:15 | PC.SS ---
SS follow up note; SS was contacted by patient's requesting [employer] in [employer] contact number. Patient's adamant and reported she is not able to provide transportation for patient. SS also contacted Romy from [employer] and she informed SS that patient's needs to be aware that she will be responsible for transportation. SS contacted patient's to inform her that goals of care meeting needs to be conducted. SS informed Team A. Meeting will be at 3PM. Patient's verbalized understanding.
--- NOTE | 2024-09-04 15:28 | PC.SS ---
SS follow up note; SS met with patient and as well as DR. Neville, Dr. Raman and BASIL Chau. Patient's reported that she had spoke to Janine about submitting a hardship statement to [facility] in [place]. SS informed her that patient is medically cleared and [facility] provided charir time. SS informed patient's that SS will revaluate this tomorrow and confirm with Tiffany since Janine had left for the day and Tiffany will be the one to talk to tomorrow. SS will stand by for further needs.
--- NOTE | 2024-09-04 17:15 | ESPR_ITS ---
Documentation for date of: 09/04/24 Subjective Subjective Interval history: Mr. Galdamez is a 64-year-old male with significant past medical history of hypertension, insulin-dependent diabetes mellitus, CAD s/p PCI, HFrEF [EF 10 to 15%], CKD stage III, bilateral below-knee amputations, atrial fibrillation living in senior living facility was brought to the hospital with chief complaints of worsening mentation, shortness of breath and generalized weakness for the past 2 days. Patient was noted to have heart rate dropped to 40s during transit time in the ambulance for which patient was externally paced and 2 doses of atropine was given without response. In the ED, patient was found to have heart rate of 40 with blood pressure of 80/45 mmHg for which cardiology was consulted for suspected AV block. Per visual effects editor, there is no concern for AV block and patient was found to have junctional escape rhythm with underlying atrial fibrillation and recommended to start on Levophed and low-dose dopamine. Patient was admitted to ICU for further care. Also noted patient had decreased p.o. intake 2 days before the day of admission and abdominal discomfort. ED Course: -Initial vitals were blood pressure 111/58 mmHg, SpO2 79% with 15 L oxygen -Labs significant for Hb 8.3, potassium 7.5, bicarb 14, anion gap 19, BUN 85, creatinine 6.2, lactate 7. Urine analysis showed 5000 RBC and 2000 WBC. -Head CT was negative for acute hemorrhage and infarct. -Patient was admitted for shock requiring vasopressors Nephrology was consulted for acute on chronic kidney injury. 08/30/2024 Patient is seen and examined with at interventions from our side they have any questions bedside No acute overnight events and patient denies any other complaints Vitals are stable. Patient still appears to be oliguric Labs showed BUN 23, creatinine 2 Pending dialysis chair placement. 09/01/2024 Patient is seen and examined in dialysis unit No acute overnight events. Denies any other complaints Vitals are stable. Physical examination remains unchanged Labs showed WBC 7.9, Hb 9.1, sodium 138, potassium 3.4, BUN 36, creatinine 2.5 Still pending outpatient dialysis chair placement. Patient is tolerating dialysis well 09/02/2024 Patient is seen and examined at the bedside No acute overnight events. Denies any other complaints Vitals are stable. Physical examination remains unchanged Urine output is 300ml and seems to be improving Labs showed WBC 7.6, Hb 8.9, BUN 20, Cr 1.8 09/03/2024 Patient is seen and examined at the bedside. No acute overnight events. Denies any other complaints. Vitals are stable and physical examination remains unchanged Patient is still oliguric. Labs showed WBC 8, Hb 9.4, sodium 139, potassium 4, bicarb 22.9, BUN 25, creatinine 2.1 Next dialysis will be scheduled on sunday Still pending discharge placement 09/04/2024 Patient is seen and examined at bedside No acute overnight events. Denies any other complaints Vitals are stable. Patient is still oliguric Labs showed uptrending creatinine to 2.3 Still pending placement for dialysis. Rejected for dialysis in [place]. Will do dialysis tomorrow based on his urine output and renal functions Exam Vital Signs Temp Pulse Resp BP Pulse Ox O2 Del Method O2 Flow Rate 97.1 F 60 18 131/77 H 95 Room Air 2 09/04/24 16:00 09/04/24 16:00 09/04/24 16:00 09/04/24 16:00 09/04/24 16:09/04/24 16:09/02/24 04:00 Narrative Exam General: Awake. Lying comfortably on the bed HEENT: Normocephalic, atraumatic, mucous membranes moist. Heart: Regular rate and rhythm, no murmurs. Lungs: Clear to auscultation with no wheezing or crackles. Right tunneled dialysis catheter Abdomen: Soft, nondistended, nontender, positive bowel sounds. ?No guarding or rebound tenderness. Neurologic: Alert and oriented x3, no gross neurological deficit, and patient able to move all 4 extremities. Extremities: No edema. 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 B/L BKA Skin: No rash or ecchymoses. Objective Labs 09/06/24 11:50 09/06/24 11:50 Labs: Laboratory Results - last 24 hr 09/04/24 05:53 Sodium 140 Potassium 4.3 Chloride 99 Carbon Dioxide 29.5 Anion Gap 12 BUN 29 H Creatinine 2.3 H Estim Creat Clear Calc 26.9 L eGFR 31 L BUN/Creatinine Ratio 13 Glucose 167 H Calculated Osmolality 289 Calcium 8.1 L Corrected Calcium 8.7 Phosphorus 3.2 Magnesium 1.8 Albumin 3.2 L ABG Interpretation ABG results: 08/21/24 08/21/24 08/22/24 20:24 23:24 04:35 ABG pH 7.26 L ABG pCO2 31 L ABG pO2 92 ABG HCO3 14 L ABG O2 Saturation 97 ABG Base Excess -12 L VBG pH 7.32 L 7.22 L VBG pCO2 30 L 35 L VBG pO2 66 H 85 H VBG Base Excess -10 L -12 L 08/24/24 08:40 ABG pH ABG pCO2 ABG pO2 ABG HCO3 ABG O2 Saturation ABG Base Excess VBG pH 7.36 VBG pCO2 31 L VBG pO2 80 H VBG Base Excess -8 L Quality Measures Quality Measures VTE prophylaxis Advance care planning discussed with:: patient Assessment & Plan Assessment Current Active Medications: Generic Name Dose Route Start Last Admin Trade Name Freq PRN Reason Stop Dose Admin Acetaminophen 650 mg 08/21/24 23:37 Acetaminophen 325 Mg Tablet PO 09/20/24 23:36 Q4HR PRN PAIN SCALE 1-3 (mild Acetaminophen 650 mg 08/21/24 23:37 Acetaminophen Supp 650 Mg Supp ND 09/20/24 23:36 Q4HR PRN PAIN SCALE 1-3 (mild Al Hydrox/Mg Hydrox/Simethicone 30 ml 08/22/24 00:31 Mg Hyd/Al Hyd/Stephy (Maalox Reg) Susp 30 Ml Udc PO 09/20/24 23:36 Q4HR PRN Heartburn or Upset Stomach Albuterol 2.5 mg 08/26/24 15:00 09/04/24 15:43 Albuterol Rt 2.5 Mg/0.5 Ml Nebu INH 09/25/24 14:59 2.5 mg Q8HRRT KENNY Administration Amiodarone HCl 200 mg 08/24/24 15:00 09/04/24 09:14 Amiodarone Hcl 200 Mg Tablet PO 09/23/24 14:59 200 mg QDAY KENNY Administration Apixaban 2.5 mg 09/02/24 21:00 09/04/24 09:14 Apixaban 2.5 Mg Tablet PO 10/02/24 20:59 2.5 mg BID KENNY Administration Aspirin 81 mg 09/03/24 09:00 09/04/24 09:14 Aspirin Ec 81 Mg Tabec PO 10/03/24 08:59 81 mg QDAY KENNY Administration Carvedilol 3.125 mg 08/28/24 17:30 09/04/24 08:08 Carvedilol 3.125 Mg Tablet PO 09/27/24 17:29 3.125 mg BIDWM KENNY Administration Citric Acid/Sodium Citrate 30 ml 09/03/24 21:00 09/04/24 09:13 Citric Acid/Sodium Citr 15 Ml Udc (Bicitra) PO 10/03/24 20:59 30 ml BID KENNY Administration Dextrose 25 ml 08/22/24 04:20 08/22/24 11:43 Dextrose 50%-Water Inj 50 Ml Syringe IV 09/21/24 04:19 25 ml Q15MIN PRN Administration BG 50-70 responsive npo pt Dextrose 50 ml 08/22/24 04:20 Dextrose 50%-Water Inj 50 Ml Syringe IV 09/21/24 04:19 Q15MIN PRN BG <50 OR BG <70 & pt unresponsive Ferrous Sulfate 325 mg 08/24/24 08:30 09/03/24 08:10 Ferrous Sulf 325 Mg Tablet PO 09/23/24 08:29 325 mg QOD KENNY Administration Heparin Sodium (Porcine) 3,500 unit 08/27/24 15:36 09/01/24 11:53 Heparin Sod Inj 1000 Unit/Ml Vial 10 Ml INDWELLCAT 09/10/24 15:35 3,500 unit PRN PRN Administration DIALYSIS Albumin Human 25 gm in 100 mls @ 100 mls/min 08/22/24 05:34 Albuminar-25 Ivpb IV PRN PRN DIALYSIS Insulin Human Lispro 0 unit 08/29/24 07:30 09/04/24 11:57 Insulin Lispro (Admelog) 1 Unit/0.01 Ml Unit SC 09/28/24 07:29 Not Given AC [facility] Protocol Magnesium Hydroxide 30 ml 08/21/24 23:37 Milk Of Magnesia Susp 30 Ml Udc PO 09/20/24 23:36 QDAY PRN CONSTIPATION Midodrine 5 mg 08/30/24 13:24 Midodrine 5 Mg Tablet PO 09/27/24 21:59 TID PRN SBP < 100 or MAP < 65 Pharmacy Consult 1 each 08/23/24 08:21 Pharmacy To Consult Patient XX 09/22/24 08:20 PRN PRN Starting 24Hr Continuous/Intermittent Dialysis Sodium Chloride 3 ml 08/22/24 14:07 09/04/24 15:43 Sodium Chloride Rt Jing 0.9% 3 Ml Nebu INH 09/21/24 14:06 3 ml PRN PRN Administration SOLN Tamsulosin HCl 0.4 mg 09/02/24 21:00 09/03/24 20:11 Tamsulosin Hcl 0.4 Mg Capsule PO 10/02/24 20:59 0.4 mg HS KENNY Administration Plan A 64-year-old male with significant past medical history of hypertension, insulin-dependent diabetes mellitus, CAD s/p PCI, HFrEF [EF 10 to 15%], CKD stage III, bilateral below-knee amputations, atrial fibrillation living in senior living facility was brought to the hospital with chief complaints of worsening mentation, shortness of breath and generalized weakness for the past 2 days. # Acute on chronic kidney disease, stage IIIb, resolving Likely prerenal versus ATN in the setting of shock -Patient presented to the hospital with the complaints of shortness of breath worsening mentation and per patient's patient had abdominal pain and foul- smelling urine. -Baseline creatinine as of 07/2024 is 2.4 -On the day of admission, 08/21/2024, creatinine is 6.3 > 08/25, BUN 25, Cr 2.8 1 >08/26, BUN 18, Cr 2 >08/28, BUN 15, Cr 2.1 >08/29, BUN 30, Cr 2.8 -Urine analysis showed turbid urine with 2+ proteinuria, 3+ blood, 5180 RBC, 1928 WBC Plan -Patient got CRRT on 08/22 and one more session done on 08/23, HD on 08/26, 08/27, 08/29, 09/01 -will continue dialysis 2 times per week till patient renal functions come back to his normal baseline and makes adequate amount of urine output -Monitor renal functions and avoid nephrotoxic medications #Hypokalemia, resolved -On 09/04/2024, potassium is 4.3 -Recommend to monitor electrolytes and replete accordingly. # Hyperkalemia, resolved # Hyperphosphatemia, resolved # Lactic acidosis, resolved -Found to have potassium of 7.5 at the time of admission -Since 08/23/2024, Electrolytes are within normal limits #Acute encephalopathy 2/2 UTI #Chronic right parietal stroke #Shock #Acute hypoxic respiratory failure. #Complicated UTI #Chronic anemia #IDDM #Elevated LFT's To be treated per primary team Thank you for allowing us to involved in the care of the patient Patient plan of care was discussed with the attending physician, Dr. Marian Gates, PGY1 Attending Provider Attestation/Addendum Patient seen and examined with resident physician Dr. Pollard. Note reviewed, agree with findings and recommendations. Patient with sepsis and JADIEL. On broad-spectrum antibiotics. Patient received 2 conventional dialysis treatments and 2 CRRT treatment days and 4 HD sessions. Patient started to make urine. Hold HD today and hope he will have renal recovery. Cr stable. No need for emergency dialysis
--- NOTE | 2024-09-04 17:27 | PD.RESPRO ---
Documentation for date of: 09/04/24 Subjective Subjective Interval history: Patient seen and examined at bedside this morning. No acute overnight events. Patient with ~800cc urine output/24hours. Patient is upset as he was declined by dialysis center in [place]. He has been accepted for outpatient HD in [place], however states he has no transportation that would get him there. Will follow up with SS team, and possibly have GOC this afternoon. Patient tolerating diet. Vitals stable, labs reviewed with mild elevation in creatinine. Exam Vital Signs Temp Pulse Resp BP Pulse Ox O2 Del Method O2 Flow Rate 97.1 F 60 18 131/77 H 95 Room Air 2 09/04/24 16:00 09/04/24 16:00 09/04/24 16:00 09/04/24 16:00 09/04/24 16:00 09/04/24 16:00 09/02/24 04:00 Narrative Exam GENERAL: A&Ox3 . awake, ill appearing elderly male, pleasant to speak with NEURO: CN 2-12 grossly normal but not formally tested; no focal neurological deficits HEENT: Atraumatic, Normocephalic. mucous membranes moist. Eyes open, symmetrical, & clear, tunneled dialysis cath in place, dressing clean and dry. Mild ecchymosis noted on neck HEART: Normal S1, S2; RRR; no MRG appreciated LUNGS: Clear to auscultation with no wheezing or crackles. ABDOMEN: soft, non-distended, non-tender, bowel sounds heard, no guarding or rebound tenderness SKIN: No Rash or ecchymoses EXTREMITIES: bilateral BKA, amputation of the digits 3,4,5 of the right hand Objective Labs 09/05/24 05:54 09/05/24 05:54 Labs: Laboratory Results - last 24 hr 09/04/24 05:53 Sodium 140 Potassium 4.3 Chloride 99 Carbon Dioxide 29.5 Anion Gap 12 BUN 29 H Creatinine 2.3 H Estim Creat Clear Calc 26.9 L eGFR 31 L BUN/Creatinine Ratio 13 Glucose 167 H Calculated Osmolality 289 Calcium 8.1 L Corrected Calcium 8.7 Phosphorus 3.2 Magnesium 1.8 Albumin 3.2 L ABG Interpretation ABG results: 08/21/24 08/21/24 08/22/24 20:24 23:24 04:35 ABG pH 7.26 L ABG pCO2 31 L ABG pO2 92 ABG HCO3 14 L ABG O2 Saturation 97 ABG Base Excess -12 L VBG pH 7.32 L 7.22 L VBG pCO2 30 L 35 L VBG pO2 66 H 85 H VBG Base Excess -10 L -12 L 08/24/24 08:40 ABG pH ABG pCO2 ABG pO2 ABG HCO3 ABG O2 Saturation ABG Base Excess VBG pH 7.36 VBG pCO2 31 L VBG pO2 80 H VBG Base Excess -8 L Quality Measures Quality Measures VTE prophylaxis Advance care planning discussed with:: patient and spouse Assessment & Plan Assessment Current Active Medications: Generic Name Dose Route Start Last Admin Trade Name Freq PRN Reason Stop Dose Admin Acetaminophen 650 mg 08/21/24 23:37 Acetaminophen 325 Mg Tablet PO 09/20/24 23:36 Q4HR PRN PAIN SCALE 1-3 (mild Acetaminophen 650 mg 08/21/24 23:37 Acetaminophen Supp 650 Mg Supp CO 09/20/24 23:36 Q4HR PRN PAIN SCALE 1-3 (mild Al Hydrox/Mg Hydrox/Simethicone 30 ml 08/22/24 00:31 Mg Hyd/Al Hyd/Stephy (Maalox Reg) Susp 30 Ml Udc PO 09/20/24 23:36 Q4HR PRN Heartburn or Upset Stomach Albuterol 2.5 mg 08/26/24 15:00 09/04/24 15:43 Albuterol Rt 2.5 Mg/0.5 Ml Nebu INH 09/25/24 14:59 2.5 mg Q8HRRT KENNY Administration Amiodarone HCl 200 mg 08/24/24 15:00 09/04/24 09:14 Amiodarone Hcl 200 Mg Tablet PO 09/23/24 14:59 200 mg QDAY KENNY Administration Apixaban 2.5 mg 09/02/24 21:00 09/04/24 09:14 Apixaban 2.5 Mg Tablet PO 10/02/24 20:59 2.5 mg BID KENNY Administration Aspirin 81 mg 09/03/24 09:00 09/04/24 09:14 Aspirin Ec 81 Mg Tabec PO 10/03/24 08:59 81 mg QDAY KENNY Administration Carvedilol 3.125 mg 08/28/24 17:30 09/04/24 08:08 Carvedilol 3.125 Mg Tablet PO 09/27/24 17:29 3.125 mg BIDWM KENNY Administration Citric Acid/Sodium Citrate 30 ml 09/03/24 21:00 09/04/24 09:13 Citric Acid/Sodium Citr 15 Ml Udc (Bicitra) PO 10/03/24 20:59 30 ml BID KENNY Administration Dextrose 25 ml 08/22/24 04:20 08/22/24 11:43 Dextrose 50%-Water Inj 50 Ml Syringe IV 09/21/24 04:19 25 ml Q15MIN PRN Administration BG 50-70 responsive npo pt Dextrose 50 ml 08/22/24 04:20 Dextrose 50%-Water Inj 50 Ml Syringe IV 09/21/24 04:19 Q15MIN PRN BG <50 OR BG <70 & pt unresponsive Ferrous Sulfate 325 mg 08/24/24 08:30 09/03/24 08:10 Ferrous Sulf 325 Mg Tablet PO 09/23/24 08:29 325 mg QOD KENNY Administration Heparin Sodium (Porcine) 3,500 unit 08/27/24 15:36 09/01/24 11:53 Heparin Sod Inj 1000 Unit/Ml Vial 10 Ml INDWELLCAT 09/10/24 15:35 3,500 unit PRN PRN Administration DIALYSIS Albumin Human 25 gm in 100 mls @ 100 mls/min 08/22/24 05:34 Albuminar-25 Ivpb IV PRN PRN DIALYSIS Insulin Human Lispro 0 unit 08/29/24 07:30 09/04/24 11:57 Insulin Lispro (Admelog) 1 Unit/0.01 Ml Unit SC 09/28/24 07:29 Not Given AC [facility] Protocol Magnesium Hydroxide 30 ml 08/21/24 23:37 Milk Of Magnesia Susp 30 Ml Udc PO 09/20/24 23:36 QDAY PRN CONSTIPATION Midodrine 5 mg 08/30/24 13:24 Midodrine 5 Mg Tablet PO 09/27/24 21:59 TID PRN SBP < 100 or MAP < 65 Pharmacy Consult 1 each 08/23/24 08:21 Pharmacy To Consult Patient XX 09/22/24 08:20 PRN PRN Starting 24Hr Continuous/Intermittent Dialysis Sodium Chloride 3 ml 08/22/24 14:07 09/04/24 15:43 Sodium Chloride Rt Jing 0.9% 3 Ml Nebu INH 09/21/24 14:06 3 ml PRN PRN Administration SOLN Tamsulosin HCl 0.4 mg 09/02/24 21:00 09/03/24 20:11 Tamsulosin Hcl 0.4 Mg Capsule PO 10/02/24 20:59 0.4 mg HS KENNY Administration Plan Mr. Galdamez is a 64-year-old male with a past medical history of hypertension, hyperlipidemia, CKD stage IIIb, diabetes, bilateral BKA's, A-fib, CAD status post stent, HFrEF with ejection fraction 10 to 15% who presented to the ED on 08/21/[address] [facility] with altered mental status and generalized weakness. #Goals of care Had this afternoon. is working with her insurance to try and have dialysis to be authorized in [place] via [employer]. Patient will need HD tomorrow. Per SS, plan to follow up with dialysis center in a.m. #ESRD #New onset hemodialysis post tunneled dialysis catheter, 08/26 #Worsening JADIEL on CKD required CRRT, now ESRD #Lactic acidosis -improved #Hyperkalemia - resolved -creatinine on admission 6.3, GFR 9, lactic acid 5.1, potassium on admission 7.5 -During this ICU admission pt is started on CRRT -Pt underwent permanent tunneled dialysis catheter, per nephrology recs pt will need to undergo HD dialysis 2x per week out patient -nephrology following -Pending insurance authorization for outpatient dialysis => accepted in [place] however patient unable to secure transport; see GOC above #Acute blood loss anemia, resolved #Iron deficiency anemia patient required 1 transfusion early in admission; not thought to be a GI bleed but moreso related to ESRD/lack of EPO => improved after Epo Iron panel: Iron 42, TIBC 235, Iron sat 17 and unsat Iron binding 193 FOBT negative Continue home FeSO4 qOD #UTI, resolved #hematuria, resolved #pyuria, resolved -On admission, Urinalysis is positive for leukocyte esterace, urine rbc 5180, urine wbc 1928 -urine culture show no growth initially -Repeat urine cultures on 08/28 grew VRE however patient is asymptomatic; labs/vitals do not reflect a current infection => likely colonization -Pt completed ceftriaoxone 08/27-08/30 #Cardiogenic shock- resolved #symptomatic bradycardia 2/2 to hyperkalemia #HFrEF (10-15%, improved to 40%) -On admission pt was found to have bradycardia with HR in 40's, atropine x2 was given in the ED -Due to hypotension with BP of 77/55 and MAP <65, pt was started on levophed and dopamine drips, eventually weaned off on 08/24 -Per cardiology-ICD not indicated in patient for following reasons: Patient has NYHA Class IV with drug-refractory CHF, reasonable expectation of survival with an acceptable functional status < 6 months -Per cardiology, patient currently not a candidate for surgical intervention -On discharge, patient will benefit from GDMT optimized with Entresto if blood pressure tolerates. Currently BP is too soft to start GDMT, pt will need to follow up outpatient cardiology -Repeat echo results : Anteroseptal akinesis with moderate LV dysfunction approximate ejection fraction is 40%. Normal RV function normal PA pressure Mild to moderate mitral regurgitation Moderate TR -Cardio following -Started Coreg 3.25mg BID (parameters hold if SBP <100, HR <50, MAP <65) -Will hold off on adding ACEi/ARB due to possible kidney recovery #history of A-fib -Pt has history of a-fib and home meds include metoprolol, amiodarone and eliquis. CHADVASc score 4 and HAS-BLED 3 -NSR -Continue home amiodarone Qday; eliquis 2.5mg BID #insulin dependent Type 2 diabetes, uncontrolled #Hx of osteomylitis s/p bilaterally BKA -A1c 10.2 -Pt home medications include glargine 15 units BID -insulin sliding scale started -hypoglycemic protocol in place -Pt underwent bilateral BKA due to long standing uncontrolled T2DM #BPH resumed home flomax #Transiminitis - resolved -On admission AST and ALT mildy elevated, T. bili and ALP with in normal range. -Likely secondary to shock, will continue to monitor as shock has now resolved. Health Maintenance Disposition: telemetry DVT Prophylaxis: eliquis 2.5mg BID GI Prophylaxis: not indicated Diet: renal + glucerna Lines: Peripheral lines Code status: DNR Patient seen and care discussed with my attending Dr. Raman. Jasiel Aggarwal MD PGY-3 Attending Provider Attestation/Addendum I reviewed labs, imaging, EKG, home medications and prior available records. Face to face evaluation was performed by me. I have personally examined the patient and discussed assessment and plan with the IM team. I reviewed the resident note and agree with the plan with exceptions as below. Cardiogenic shock, resolved HFrEF EF 40% ESRD Hemodialysis status Hyperkalemia, resolved Continue hemodialysis per nephrology recommendations Patient received his hemodialysis chair however it is in [place] and he does not have transportation. Discussed with patient and : contacted the insurance company to get an exemption so he can get the dialysis chair in [place] Discussed with social worker psychiatric: Had a meeting with the family. Patient declined hospice which was the other choice. Dose medications based on GFR Continue Coreg. No ACEI/ARBs in the setting of possible kidney recovery in the next few weeks
[2024-09-04] MEDS: TAMSULOSIN HCL 0.4 MG CAPSULE PO (20:15)
[2024-09-05] VITALS (15 sets, daily range): BP systolic 102–123; BP diastolic 56–69; PULSE 56–83; RESP 15–95; TEMP 36.1–36.9; O2SAT 90–100; BMI 21.9; BMI 21.0
[2024-09-05 06:32] LABS: Basophils % (Auto) 0 % (0-2.5); Eosinophils # (Auto) 0.2 Thou/mm3 (0.0-0.5); Eosinophils % (Auto) 3 % (0-10); Immature Granulocytes % (Auto) 1 % (0-0); Immature Granulocytes Auto 0.09 Thou/mm3 (0.00-0.00); Lymphocytes # (Auto) 1.7 Thou/mm3 (1.0-4.8); Lymphocytes % (Auto) 19 % (10-50); Mean Corpuscular HGB Conc 32.1 g/dl (31.0-37.0); Mean Corpuscular Volume 84 fL (80-100); Monocytes # (Auto) 0.7 Thou/mm3 (0.0-0.8); Monocytes % (Auto) 7 % (0-12); Neutrophils # (Auto) 6.3 Thou/mm3 (1.8-7.7); Neutrophils % (Auto) 70 % (37-80); Nucleated Red Blood Cell % 0 /100 WBC (0); Platelet Count 237 Thou/mm3 (140-440); RDW Standard Deviation 61.9 fL (35.1-43.9); Red Blood Count 3.33 Miln/mm3 (4.50-5.90); White Blood Count 8.9 Thou/mm3 (3.8-10.6)
[2024-09-05 06:55] LABS: Anion Gap 8 (7-16); BUN/Creatinine Ratio 13 Ratio (12-20); Blood Urea Nitrogen 29 mg/dL (9-23); Calcium 7.8 mg/dL (8.3-10.6); Carbon Dioxide 31.1 mMol/L (20.0-31.0); Chloride 99 mMol/L (98-107); Creatinine (Component) 2.3 mg/dL (0.6-1.3); Estimated Creatinine Clearance 28.4 mL/min (>60); Glucose 180 mg/dL (74-106); Magnesium 1.8 mg/dL (1.6-2.6); Osmolality,Calculated 286 (275-295); Phosphorous 3.8 mg/dL (2.4-5.1); Potassium 4.1 mMol/L (3.4-5.1); Sodium 138 mMol/L (136-145); eGFR 31 See Note
[2024-09-05] MEDS: ALBUTEROL RT 2.5 MG/0.5 ML NEBU INH ×3 (07:19→23:43)
[2024-09-05] MEDS: INSULIN LISPRO (AdmeLOG) 1 UNIT/0.01 ML UNIT SC ×2 (07:41→12:09)
[2024-09-05] MEDS: carVEDILOL 3.125 MG TABLET PO ×2 (07:42→17:37)
[2024-09-05] MEDS: FERROUS SULF 325 MG TABLET PO (08:29)
[2024-09-05] MEDS: AMIODARONE HCL 200 MG TABLET PO (08:29)
[2024-09-05] MEDS: ASPIRIN EC 81 MG TABEC PO (08:29)
[2024-09-05] MEDS: APIXABAN 2.5 MG TABLET PO ×2 (08:30→21:40)
[2024-09-05] MEDS: CITRIC ACID/SODIUM CITR 15 ML UDC (BICITRA) 30 ML PO ×2 (08:30→21:40)
--- NOTE | 2024-09-05 11:37 | ESPR_ITS ---
Documentation for date of: 09/05/24 Subjective Subjective Interval history: Patient seen and examined at bedside this afternoon. Initially seen this morning however was sleeping, patient was allowed to sleep and evaluated in the afternoon. No acute overnight events. Vitals stable, labs reviewed. Creatinine stable at 2.3. Of note, patient did make approximately 1100 cc of urine in past 24 hours. Will discuss with nephrology as patient may not need dialysis outpatient due to recovery of kidney function. He is tolerating diet and has no acute complaints at this time. Exam Vital Signs Temp Pulse Resp BP Pulse Ox O2 Del Method O2 Flow Rate 97.2 F 67 18 123/69 90 L Room Air 2 09/05/24 08:00 09/05/24 08:29 09/05/24 08:00 09/05/24 08:29 09/05/24 08:00 09/05/24 04:00 09/02/24 04:00 Narrative Exam GENERAL: A&Ox3 . awake, ill appearing elderly male, pleasant to speak with NEURO: CN 2-12 grossly normal but not formally tested; no focal neurological deficits HEENT: Atraumatic, Normocephalic. mucous membranes moist. Eyes open, symmetrical, & clear, tunneled dialysis cath in place, dressing clean and dry. Mild ecchymosis noted on neck HEART: Normal S1, S2; RRR; no MRG appreciated LUNGS: Clear to auscultation with no wheezing or crackles. ABDOMEN: soft, non-distended, non-tender, bowel sounds heard, no guarding or rebound tenderness SKIN: No Rash or ecchymoses EXTREMITIES: bilateral BKA, amputation of the digits 3,4,5 of the right hand Objective Labs 09/05/24 05:54 09/05/24 05:54 Labs: Laboratory Results - last 24 hr 09/05/24 05:54 WBC 8.9 RBC 3.33 L Hgb 9.0 L Hct 28.0 L MCV 84 MCH 27.0 MCHC 32.1 RDW Std Deviation 61.9 H Plt Count 237 D Neut % (Auto) 70 Lymph % (Auto) 19 [place] % (Auto) 7 Eos % (Auto) 3 Baso % (Auto) 0 Neut # (Auto) 6.3 Lymph # (Auto) 1.7 [place] # (Auto) 0.7 Eos # (Auto) 0.2 Baso # (Auto) 0.0 Immature Gran # (Auto) 0.09 H Absolute Nucleated RBC 0.00 Immature Gran % 1 H Nucleated RBC % 0 Sodium 138 Potassium 4.1 Chloride 99 Carbon Dioxide 31.1 H Anion Gap 8 BUN 29 H Creatinine 2.3 H Estim Creat Clear Calc 28.4 L eGFR 31 L BUN/Creatinine Ratio 13 Glucose 180 H Calculated Osmolality 286 Calcium 7.8 L Phosphorus 3.8 Magnesium 1.8 ABG Interpretation ABG results: 08/21/24 08/21/24 08/22/24 20:24 23:24 04:35 ABG pH 7.26 L ABG pCO2 31 L ABG pO2 92 ABG HCO3 14 L ABG O2 Saturation 97 ABG Base Excess -12 L VBG pH 7.32 L 7.22 L VBG pCO2 30 L 35 L VBG pO2 66 H 85 H VBG Base Excess -10 L -12 L 08/24/24 08:40 ABG pH ABG pCO2 ABG pO2 ABG HCO3 ABG O2 Saturation ABG Base Excess VBG pH 7.36 VBG pCO2 31 L VBG pO2 80 H VBG Base Excess -8 L Quality Measures Quality Measures VTE prophylaxis Advance care planning discussed with:: patient and spouse Assessment & Plan Assessment Current Active Medications: Generic Name Dose Route Start Last Admin Trade Name Freq PRN Reason Stop Dose Admin Acetaminophen 650 mg 08/21/24 23:37 Acetaminophen 325 Mg Tablet PO 09/20/24 23:36 Q4HR PRN PAIN SCALE 1-3 (mild Acetaminophen 650 mg 08/21/24 23:37 Acetaminophen Supp 650 Mg Supp MA 09/20/24 23:36 Q4HR PRN PAIN SCALE 1-3 (mild Al Hydrox/Mg Hydrox/Simethicone 30 ml 08/22/24 00:31 Mg Hyd/Al Hyd/Stephy (Maalox Reg) Susp 30 Ml Udc PO 09/20/24 23:36 Q4HR PRN Heartburn or Upset Stomach Albuterol 2.5 mg 08/26/24 15:00 09/05/24 07:19 Albuterol Rt 2.5 Mg/0.5 Ml Nebu INH 09/25/24 14:59 2.5 mg Q8HRRT KENNY Administration Amiodarone HCl 200 mg 08/24/24 15:00 09/05/24 08:29 Amiodarone Hcl 200 Mg Tablet PO 09/23/24 14:59 200 mg QDAY KENNY Administration Apixaban 2.5 mg 09/02/24 21:00 09/05/24 08:30 Apixaban 2.5 Mg Tablet PO 10/02/24 20:59 2.5 mg BID KENNY Administration Aspirin 81 mg 09/03/24 09:00 09/05/24 08:29 Aspirin Ec 81 Mg Tabec PO 10/03/24 08:59 81 mg QDAY KENNY Administration Carvedilol 3.125 mg 08/28/24 17:30 09/05/24 07:42 Carvedilol 3.125 Mg Tablet PO 09/27/24 17:29 3.125 mg BIDWM KENNY Administration Citric Acid/Sodium Citrate 30 ml 09/03/24 21:00 09/05/24 08:30 Citric Acid/Sodium Citr 15 Ml Udc (Bicitra) PO 10/03/24 20:59 30 ml BID KENNY Administration Dextrose 25 ml 08/22/24 04:20 08/22/24 11:43 Dextrose 50%-Water Inj 50 Ml Syringe IV 09/21/24 04:19 25 ml Q15MIN PRN Administration BG 50-70 responsive npo pt Dextrose 50 ml 08/22/24 04:20 Dextrose 50%-Water Inj 50 Ml Syringe IV 09/21/24 04:19 Q15MIN PRN BG <50 OR BG <70 & pt unresponsive Ferrous Sulfate 325 mg 08/24/24 08:30 09/05/24 08:29 Ferrous Sulf 325 Mg Tablet PO 09/23/24 08:29 325 mg QOD KENNY Administration Heparin Sodium (Porcine) 3,500 unit 08/27/24 15:36 09/01/24 11:53 Heparin Sod Inj 1000 Unit/Ml Vial 10 Ml INDWELLCAT 09/10/24 15:35 3,500 unit PRN PRN Administration DIALYSIS Albumin Human 25 gm in 100 mls @ 100 mls/min 08/22/24 05:34 Albuminar-25 Ivpb IV PRN PRN DIALYSIS Insulin Human Lispro 0 unit 08/29/24 07:30 09/05/24 07:41 Insulin Lispro (Admelog) 1 Unit/0.01 Ml Unit SC 09/28/24 07:29 2 unit AC KENNY Administration Protocol Magnesium Hydroxide 30 ml 08/21/24 23:37 Milk Of Magnesia Susp 30 Ml Udc PO 09/20/24 23:36 QDAY PRN CONSTIPATION Midodrine 5 mg 08/30/24 13:24 Midodrine 5 Mg Tablet PO 09/27/24 21:59 TID PRN SBP < 100 or MAP < 65 Pharmacy Consult 1 each 08/23/24 08:21 Pharmacy To Consult Patient XX 09/22/24 08:20 PRN PRN Starting 24Hr Continuous/Intermittent Dialysis Sodium Chloride 3 ml 08/22/24 14:07 09/04/24 23:23 Sodium Chloride Rt Jing 0.9% 3 Ml Nebu INH 09/21/24 14:06 3 ml PRN PRN Administration SOLN Tamsulosin HCl 0.4 mg 09/02/24 21:00 09/04/24 20:15 Tamsulosin Hcl 0.4 Mg Capsule PO 10/02/24 20:59 0.4 mg HS KENNY Administration Plan Mr. Galdamez is a 64-year-old male with a past medical history of hypertension, hyperlipidemia, CKD stage IIIb, diabetes, bilateral BKA's, A-fib, CAD status post stent, HFrEF with ejection fraction 10 to 15% who presented to the ED on 08/21/2024 from [facility] with altered mental status and generalized weakness. #Goals of care Had on 09/05. is working with her insurance to try and have dialysis to be authorized in [place] via hardship. Per SS, plan to follow up with dialysis center in a.m. #ESRD #New onset hemodialysis post tunneled dialysis catheter, 08/26 #Worsening JADIEL on CKD required CRRT, now ESRD #Lactic acidosis -improved #Hyperkalemia - resolved -creatinine on admission 6.3, GFR 9, lactic acid 5.1, potassium on admission 7.5 -During this ICU admission pt is started on CRRT -Pt underwent permanent tunneled dialysis catheter, per nephrology recs pt will need to undergo HD dialysis 2x per week out patient -nephrology following -Pending insurance authorization for outpatient dialysis at [facility] => accepted in [facility] in [place] however patient unable to secure transport; see GOC above -09/05: Patient had approximate 1100 cc of urine output in past 24 hours, with creatinine stable at 2.3; discussed with nephro, and patient's kidneys may be recovering; he is pending Auth for SNF therefore we will monitor patient's renal function #Acute blood loss anemia, resolved #Iron deficiency anemia patient required 1 transfusion early in admission; not thought to be a GI bleed but moreso related to ESRD/lack of EPO => improved after Epo Iron panel: Iron 42, TIBC 235, Iron sat 17 and unsat Iron binding 193 FOBT negative Continue home FeSO4 qOD #UTI, resolved #hematuria, resolved #pyuria, resolved -On admission, Urinalysis is positive for leukocyte esterace, urine rbc 5180, urine wbc 1928 -urine culture show no growth initially -Repeat urine cultures on 08/28 grew VRE however patient is asymptomatic; labs/vitals do not reflect a current infection => likely colonization -Pt completed ceftriaoxone 08/27-08/30 #Cardiogenic shock- resolved #symptomatic bradycardia 2/2 to hyperkalemia #HFrEF (10-15%, improved to 40%) -On admission pt was found to have bradycardia with HR in 40's, atropine x2 was given in the ED -Due to hypotension with BP of 77/55 and MAP <65, pt was started on levophed and dopamine drips, eventually weaned off on 08/24 -Per cardiology-ICD not indicated in patient for following reasons: Patient has NYHA Class IV with drug-refractory CHF, reasonable expectation of survival with an acceptable functional status < 6 months -Per cardiology, patient currently not a candidate for surgical intervention -On discharge, patient will benefit from GDMT optimized with Entresto if blood pressure tolerates. Currently BP is too soft to start GDMT, pt will need to follow up outpatient cardiology -Repeat echo results : Anteroseptal akinesis with moderate LV dysfunction approximate ejection fraction is 40%. Normal RV function normal PA pressure Mild to moderate mitral regurgitation Moderate TR -Cardio following -Started Coreg 3.25mg BID (parameters hold if SBP <100, HR <50, MAP <65) -Will hold off on adding ACEi/ARB due to possible kidney recovery #history of A-fib -Pt has history of a-fib and home meds include metoprolol, amiodarone and eliquis. CHADVASc score 4 and HAS-BLED 3 -NSR -Continue home amiodarone Qday; eliquis 2.5mg BID #insulin dependent Type 2 diabetes, uncontrolled #Hx of osteomylitis s/p bilaterally BKA -A1c 10.2 -Pt home medications include glargine 15 units BID -insulin sliding scale started -hypoglycemic protocol in place -Pt underwent bilateral BKA due to long standing uncontrolled T2DM #BPH resumed home flomax #Transiminitis - resolved -On admission AST and ALT mildy elevated, T. bili and ALP with in normal range. -Likely secondary to shock, will continue to monitor as shock has now resolved. Health Maintenance Disposition: telemetry DVT Prophylaxis: eliquis 2.5mg BID GI Prophylaxis: not indicated Diet: renal + glucerna Lines: Peripheral lines Code status: DNR Patient seen and care discussed with my attending Dr. Raman. Jasiel Aggarwal MD PGY-3 Attending Provider Attestation/Addendum I reviewed labs, imaging, EKG, home medications and prior available records. Face to face evaluation was performed by me. I have personally examined the patient and discussed assessment and plan with the IM team. I reviewed the resident note and agree with the plan with exceptions as below. Cardiogenic shock, resolved HFrEF EF 40% Acute kidney injury Hemodialysis status Hyperkalemia, resolved S/p bilateral BKA Discussed with nephrology: Since the kidney function is stable, he may not need hemodialysis. Keep the patient and monitor kidney function closely Patient is pending authorization to go back to SNF. If he needs dialysis, he needs to go to [place] as his insurance denied dialysis chair in [place] Discussed with social sciences chair: Had a meeting with the family. Patient declined hospice which was the other choice. Dose medications based on GFR Continue Coreg. No ACEI/ARBs in the setting of possible kidney recovery in the next few weeks
--- NOTE | 2024-09-05 12:00 | CHAP ---
Patient was visited by the Spiritual Care Volunteer who prayed for them. (Volunteer was in the hospital from 10:00-12:00)
--- NOTE | 2024-09-05 13:37 | PC.SS ---
SS attempted to contact SUKUMAR in [place], SS left Voicemail with call back number. SS contacted Andr[employer]chip from [facility] and at the time auth is still pending.
--- NOTE | 2024-09-05 15:10 | PD.RESPRO ---
Documentation for date of: 09/05/24 Subjective Subjective Interval history: Patient is seen and examined bedside No acute overnight events. Denies any other complaints. Patient found to have urine output of 1080 mL in the last 24 hours, improving urine output Vitals are stable. Physical examination remains unchanged Labs showed WBC 8.9, Hb 9, platelets 237, BUN 29, creatinine 2.3 As urine output is improving and renal functions remained stable, will withhold dialysis for today If patient remains stable as his current condition, may not need dialysis Exam Vital Signs Temp Pulse Resp BP Pulse Ox O2 Del Method O2 Flow Rate 97.4 F 83 18 110/61 92 L Room Air 2 09/05/24 12:00 09/05/24 12:00 09/05/24 12:00 09/05/24 12:00 09/05/24 12:00 09/05/24 12:00 09/02/24 04:00 Narrative Exam General: Awake. Lying comfortably on the bed HEENT: Normocephalic, atraumatic, mucous membranes moist. Heart: Regular rate and rhythm, no murmurs. Lungs: Clear to auscultation with no wheezing or crackles. Right tunneled dialysis catheter Abdomen: Soft, nondistended, nontender, positive bowel sounds. ?No guarding or rebound tenderness. Neurologic: Alert and oriented x3, no gross neurological deficit, and patient able to move all 4 extremities. Extremities: No edema. 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 B/L BKA Skin: No rash or ecchymoses. Objective Labs 09/06/24 11:50 09/06/24 11:50 Labs: Laboratory Results - last 24 hr 09/05/24 05:54 WBC 8.9 RBC 3.33 L Hgb 9.0 L Hct 28.0 L MCV 84 MCH 27.0 MCHC 32.1 RDW Std Deviation 61.9 H Plt Count 237 D Neut % (Auto) 70 Lymph % (Auto) 19 [place] % (Auto) 7 Eos % (Auto) 3 Baso % (Auto) 0 Neut # (Auto) 6.3 Lymph # (Auto) 1.7 [place] # (Auto) 0.7 Eos # (Auto) 0.2 Baso # (Auto) 0.0 Immature Gran # (Auto) 0.09 H Absolute Nucleated RBC 0.00 Immature Gran % 1 H Nucleated RBC % 0 Sodium 138 Potassium 4.1 Chloride 99 Carbon Dioxide 31.1 H Anion Gap 8 BUN 29 H Creatinine 2.3 H Estim Creat Clear Calc 28.4 L eGFR 31 L BUN/Creatinine Ratio 13 Glucose 180 H Calculated Osmolality 286 Calcium 7.8 L Phosphorus 3.8 Magnesium 1.8 ABG Interpretation ABG results: 08/21/24 08/21/24 08/22/24 20:24 23:24 04:35 ABG pH 7.26 L ABG pCO2 31 L ABG pO2 92 ABG HCO3 14 L ABG O2 Saturation 97 ABG Base Excess -12 L VBG pH 7.32 L 7.22 L VBG pCO2 30 L 35 L VBG pO2 66 H 85 H VBG Base Excess -10 L -12 L 08/24/24 08:40 ABG pH ABG pCO2 ABG pO2 ABG HCO3 ABG O2 Saturation ABG Base Excess VBG pH 7.36 VBG pCO2 31 L VBG pO2 80 H VBG Base Excess -8 L Quality Measures Quality Measures VTE prophylaxis Advance care planning discussed with:: patient Assessment & Plan Assessment Current Active Medications: Generic Name Dose Route Start Last Admin Trade Name Freq PRN Reason Stop Dose Admin Acetaminophen 650 mg 08/21/24 23:37 Acetaminophen 325 Mg Tablet PO 09/20/24 23:36 Q4HR PRN PAIN SCALE 1-3 (mild Acetaminophen 650 mg 08/21/24 23:37 Acetaminophen Supp 650 Mg Supp [place] 09/20/24 23:36 Q4HR PRN PAIN SCALE 1-3 (mild Al Hydrox/Mg Hydrox/Simethicone 30 ml 08/22/24 00:31 Mg Hyd/Al Hyd/Stephy (Maalox Reg) Susp 30 Ml Udc PO 09/20/24 23:36 Q4HR PRN Heartburn or Upset Stomach Albuterol 2.5 mg 08/26/24 15:00 09/05/24 07:19 Albuterol Rt 2.5 Mg/0.5 Ml Nebu INH 09/25/24 14:59 2.5 mg Q8HRRT KENNY Administration Amiodarone HCl 200 mg 08/24/24 15:00 09/05/24 08:29 Amiodarone Hcl 200 Mg Tablet PO 09/23/24 14:59 200 mg QDAY KENNY Administration Apixaban 2.5 mg 09/02/24 21:00 09/05/24 08:30 Apixaban 2.5 Mg Tablet PO 10/02/24 20:59 2.5 mg BID KENNY Administration Aspirin 81 mg 09/03/24 09:00 09/05/24 08:29 Aspirin Ec 81 Mg Tabec PO 10/03/24 08:59 81 mg QDAY KENNY Administration Carvedilol 3.125 mg 08/28/24 17:30 09/05/24 07:42 Carvedilol 3.125 Mg Tablet PO 09/27/24 17:29 3.125 mg BIDWM KENNY Administration Citric Acid/Sodium Citrate 30 ml 09/03/24 21:00 09/05/24 08:30 Citric Acid/Sodium Citr 15 Ml Udc (Bicitra) PO 10/03/24 20:59 30 ml BID KENNY Administration Dextrose 25 ml 08/22/24 04:20 08/22/24 11:43 Dextrose 50%-Water Inj 50 Ml Syringe IV 09/21/24 04:19 25 ml Q15MIN PRN Administration BG 50-70 responsive npo pt Dextrose 50 ml 08/22/24 04:20 Dextrose 50%-Water Inj 50 Ml Syringe IV 09/21/24 04:19 Q15MIN PRN BG <50 OR BG <70 & pt unresponsive Ferrous Sulfate 325 mg 08/24/24 08:30 09/05/24 08:29 Ferrous Sulf 325 Mg Tablet PO 09/23/24 08:29 325 mg QOD KENNY Administration Heparin Sodium (Porcine) 3,500 unit 08/27/24 15:36 09/01/24 11:53 Heparin Sod Inj 1000 Unit/Ml Vial 10 Ml INDWELLCAT 09/10/24 15:35 3,500 unit PRN PRN Administration DIALYSIS Albumin Human 25 gm in 100 mls @ 100 mls/min 08/22/24 05:34 Albuminar-25 Ivpb IV PRN PRN DIALYSIS Insulin Human Lispro 0 unit 08/29/24 07:30 09/05/24 12:09 Insulin Lispro (Admelog) 1 Unit/0.01 Ml Unit SC 09/28/24 07:29 3 unit AC KENNY Administration Protocol Magnesium Hydroxide 30 ml 08/21/24 23:37 Milk Of Magnesia Susp 30 Ml Udc PO 09/20/24 23:36 QDAY PRN CONSTIPATION Midodrine 5 mg 08/30/24 13:24 Midodrine 5 Mg Tablet PO 09/27/24 21:59 TID PRN SBP < 100 or MAP < 65 Pharmacy Consult 1 each 08/23/24 08:21 Pharmacy To Consult Patient XX 09/22/24 08:20 PRN PRN Starting 24Hr Continuous/Intermittent Dialysis Sodium Chloride 3 ml 08/22/24 14:07 09/04/24 23:23 Sodium Chloride Rt Jing 0.9% 3 Ml Nebu INH 09/21/24 14:06 3 ml PRN PRN Administration SOLN Tamsulosin HCl 0.4 mg 09/02/24 21:00 09/04/24 20:15 Tamsulosin Hcl 0.4 Mg Capsule PO 10/02/24 20:59 0.4 mg HS KENNY Administration Plan A 64-year-old male with significant past medical history of hypertension, insulin-dependent diabetes mellitus, CAD s/p PCI, HFrEF [EF 10 to 15%], CKD stage III, bilateral below-knee amputations, atrial fibrillation living in senior living facility was brought to the hospital with chief complaints of worsening mentation, shortness of breath and generalized weakness for the past 2 days. # Acute on chronic kidney disease, stage IIIb, resolving Likely prerenal versus ATN in the setting of shock -Patient presented to the hospital with the complaints of shortness of breath worsening mentation and per patient's patient had abdominal pain and foul-smelling urine. -Baseline creatinine as of 07/2024 is 2.4 -On the day of admission, 08/21/2024, creatinine is 6.3 > 08/25, BUN 25, Cr 2.8 1 >08/26, BUN 18, Cr 2 >08/28, BUN 15, Cr 2.1 >08/29, BUN 30, Cr 2.8 >08/26, Cr 2.8 -Urine analysis showed turbid urine with 2+ proteinuria, 3+ blood, 5180 RBC, 1928 WBC Plan -Patient got CRRT on 08/22 and one more session done on 08/23, HD on 08/26, 08/27, 08/29, 09/01 -As the patient renal functions remained stable and is able to maintain adequate amount of urine output, will withhold dialysis for today -will continue dialysis 2 times per week till patient renal functions come back to his normal baseline and makes adequate amount of urine output -Monitor renal functions and avoid nephrotoxic medications #Hypokalemia, resolved -On 09/05/2024, potassium is 4.1 -Recommend to monitor electrolytes and replete accordingly. # Hyperkalemia, resolved # Hyperphosphatemia, resolved # Lactic acidosis, resolved -Found to have potassium of 7.5 at the time of admission -Since 08/23/2024, Electrolytes are within normal limits #Acute encephalopathy 2/2 UTI #Chronic right parietal stroke #Shock #Acute hypoxic respiratory failure. #Complicated UTI #Chronic anemia #IDDM #Elevated LFT's To be treated per primary team Thank you for allowing us to involved in the care of the patient Patient plan of care was discussed with the attending physician, Dr. Marian Gates, PGY1 Attending Provider Attestation/Addendum Patient seen and examined with resident physician Dr. Pollard. Note reviewed, agree with findings and recommendations. Patient with sepsis and JADIEL. On broad-spectrum antibiotics. Patient received 2 conventional dialysis treatments and 2 CRRT treatment days and 4 sessions of conventional dialysis. Noted he started to make urine. Creatinine improving. Will hold off on dialysis and wait for renal recovery. Plan of care discussed with primary team.
[2024-09-05] MEDS: SODIUM CHLORIDE RT SOL 0.9% 3 ML NEBU INH (15:22)
--- NOTE | 2024-09-05 21:02 | ESPR_ITS ---
<Statement entered by Janee Velazquez MD - 09/08/24 13:31> Patient examined by me along with resident physician PGY2 clinically doing well stable to be discharged home will recommend continuing medical management follow-up as an outpatient in 2 to 3 weeks following discharge to SNF. Documentation for date of: 09/05/24 Subjective Subjective Interval history: Overnight events, labs reviewed. The patient examined this a.m. at bedside, resting comfartbly in bed , The patient has no active complaints. Exam Vital Signs Temp Pulse Resp BP Pulse Ox O2 Del Method O2 Flow Rate 97.1 F 61 18 113/63 93 L Room Air 2 09/05/24 16:00 09/05/24 17:37 09/05/24 16:00 09/05/24 17:37 09/05/24 16:00 09/05/24 12:00 09/02/24 04:00 Narrative Exam General: AOx3, cooperative, in no acute distress HEENT: Atraumatic/normocephalic, RUPERT Heart: RRR, S1 and S2 without clicks or murmurs Lungs: Clear on auscultation bilaterally, no difficulty breathing Abdomen: Soft, nontender. Bowel sounds present on all quadrants Skin: Bilateral lower extremity BKAs, no edema or cyanosis noted. Right hand amputations digits 3-5. Neuro: No focal neurological deficits noted on appearance Objective Labs 09/05/24 05:54 09/05/24 05:54 Labs: Laboratory Results - last 24 hr 09/05/24 05:54 WBC 8.9 RBC 3.33 L Hgb 9.0 L Hct 28.0 L MCV 84 MCH 27.0 MCHC 32.1 RDW Std Deviation 61.9 H Plt Count 237 D Neut % (Auto) 70 Lymph % (Auto) 19 Elbert % (Auto) 7 Eos % (Auto) 3 Baso % (Auto) 0 Neut # (Auto) 6.3 Lymph # (Auto) 1.7 Elbert # (Auto) 0.7 Eos # (Auto) 0.2 Baso # (Auto) 0.0 Immature Gran # (Auto) 0.09 H Absolute Nucleated RBC 0.00 Immature Gran % 1 H Nucleated RBC % 0 Sodium 138 Potassium 4.1 Chloride 99 Carbon Dioxide 31.1 H Anion Gap 8 BUN 29 H Creatinine 2.3 H Estim Creat Clear Calc 28.4 L eGFR 31 L BUN/Creatinine Ratio 13 Glucose 180 H Calculated Osmolality 286 Calcium 7.8 L Phosphorus 3.8 Magnesium 1.8 ABG Interpretation ABG results: 08/21/24 08/21/24 08/22/24 20:24 23:24 04:35 ABG pH 7.26 L ABG pCO2 31 L ABG pO2 92 ABG HCO3 14 L ABG O2 Saturation 97 ABG Base Excess -12 L VBG pH 7.32 L 7.22 L VBG pCO2 30 L 35 L VBG pO2 66 H 85 H VBG Base Excess -10 L -12 L 08/24/24 08:40 ABG pH ABG pCO2 ABG pO2 ABG HCO3 ABG O2 Saturation ABG Base Excess VBG pH 7.36 VBG pCO2 31 L VBG pO2 80 H VBG Base Excess -8 L Quality Measures Quality Measures VTE prophylaxis Advance care planning discussed with:: patient Assessment & Plan Assessment Current Active Medications: Generic Name Dose Route Start Last Admin Trade Name Freq PRN Reason Stop Dose Admin Acetaminophen 650 mg 08/21/24 23:37 Acetaminophen 325 Mg Tablet PO 09/20/24 23:36 Q4HR PRN PAIN SCALE 1-3 (mild Acetaminophen 650 mg 08/21/24 23:37 Acetaminophen Supp 650 Mg Supp MT 09/20/24 23:36 Q4HR PRN PAIN SCALE 1-3 (mild Al Hydrox/Mg Hydrox/Simethicone 30 ml 08/22/24 00:31 Mg Hyd/Al Hyd/Stephy (Maalox Reg) Susp 30 Ml Udc PO 09/20/24 23:36 Q4HR PRN Heartburn or Upset Stomach Albuterol 2.5 mg 08/26/24 15:00 09/05/24 15:22 Albuterol Rt 2.5 Mg/0.5 Ml Nebu INH 09/25/24 14:59 2.5 mg Q8HRRT KENNY Administration Amiodarone HCl 200 mg 08/24/24 15:00 09/05/24 08:29 Amiodarone Hcl 200 Mg Tablet PO 09/23/24 14:59 200 mg QDAY KENNY Administration Apixaban 2.5 mg 09/02/24 21:00 09/05/24 08:30 Apixaban 2.5 Mg Tablet PO 10/02/24 20:59 2.5 mg BID KENNY Administration Aspirin 81 mg 09/03/24 09:00 09/05/24 08:29 Aspirin Ec 81 Mg Tabec PO 10/03/24 08:59 81 mg QDAY KENNY Administration Carvedilol 3.125 mg 08/28/24 17:30 09/05/24 17:37 Carvedilol 3.125 Mg Tablet PO 09/27/24 17:29 3.125 mg BIDWM KENNY Administration Citric Acid/Sodium Citrate 30 ml 09/03/24 21:00 09/05/24 08:30 Citric Acid/Sodium Citr 15 Ml Udc (Bicitra) PO 10/03/24 20:59 30 ml BID KENNY Administration Dextrose 25 ml 08/22/24 04:20 08/22/24 11:43 Dextrose 50%-Water Inj 50 Ml Syringe IV 09/21/24 04:19 25 ml Q15MIN PRN Administration BG 50-70 responsive npo pt Dextrose 50 ml 08/22/24 04:20 Dextrose 50%-Water Inj 50 Ml Syringe IV 09/21/24 04:19 Q15MIN PRN BG <50 OR BG <70 & pt unresponsive Ferrous Sulfate 325 mg 08/24/24 08:30 09/05/24 08:29 Ferrous Sulf 325 Mg Tablet PO 09/23/24 08:29 325 mg QOD KENNY Administration Heparin Sodium (Porcine) 3,500 unit 08/27/24 15:36 09/01/24 11:53 Heparin Sod Inj 1000 Unit/Ml Vial 10 Ml INDWELLCAT 09/10/24 15:35 3,500 unit PRN PRN Administration DIALYSIS Albumin Human 25 gm in 100 mls @ 100 mls/min 08/22/24 05:34 Albuminar-25 Ivpb IV PRN PRN DIALYSIS Insulin Human Lispro 0 unit 08/29/24 07:30 09/05/24 17:35 Insulin Lispro (Admelog) 1 Unit/0.01 Ml Unit SC 09/28/24 07:29 Not Given AC [facility] Protocol Magnesium Hydroxide 30 ml 08/21/24 23:37 Milk Of Magnesia Susp 30 Ml Udc PO 09/20/24 23:36 QDAY PRN CONSTIPATION Midodrine 5 mg 08/30/24 13:24 Midodrine 5 Mg Tablet PO 09/27/24 21:59 TID PRN SBP < 100 or MAP < 65 Pharmacy Consult 1 each 08/23/24 08:21 Pharmacy To Consult Patient XX 09/22/24 08:20 PRN PRN Starting 24Hr Continuous/Intermittent Dialysis Sodium Chloride 3 ml 08/22/24 14:07 09/05/24 15:22 Sodium Chloride Rt Jing 0.9% 3 Ml Nebu INH 09/21/24 14:06 3 ml PRN PRN Administration SOLN Tamsulosin HCl 0.4 mg 09/02/24 21:00 09/04/24 20:15 Tamsulosin Hcl 0.4 Mg Capsule PO 10/02/24 20:59 0.4 mg HS KENNY Administration Plan Patient is a 64-year-old male past medical history of HFrEF (EF 10-15%), ischemic cardiomyopathy, CKD IIIb, CAD s/p stents, atrial fibrillation, NSVT, hypertension, hyperlipidemia, IDDM2, and bilateral BKAs who was admitted to the ICU for cardiogenic shock and acute on chronic renal failure requiring vasopressor support and CRRT. Patient was noted to have severe bradycardia in 40s both in ED and en route to ED, given atropine x2 however bradycardia did not resolve, external pacing was initiated. Cardiology team consulted for severe bradycardia in setting of hyperkalemia 7.5. #Paroxysmal atrial fibrillation?now in sinus rhythm Patient has history of atrial fibrillation, presented with slow ventricular rate, symptomatic bradycardia, electrolyte abnormalities likely precipitating bradycardia, hyperkalemia requiring hemodialysis, now resolved, currently patient is not sinus rhythm, will continue amiodarone 200 mg daily. - Telemetry review shows heart rate dropped to 56 to 58 bpm mostly at night when patient asleep, patient asymptomatic, maintaining normal vitals, no chest pain or palpitations. At this point recommend continuing patient's Coreg and amiodarone, continue watch for symptoms, will consider reducing medication dosages if patient becomes symptomatic. # Systolic CHF?now improved ejection fraction Patient had prior echocardiogram with a EF 15%, now repeat echocardiogram showed EF 40%, improvement in ejection fraction noted with medical management. Will continue carvedilol low-dose for GDMT, but due to concern for hypotension can also use midodrine to keep systolic pressure at least 100, and MAP above 60. - Monitor electrolytes, goal of K > 4 and Magnesium > 2 - reasonable to continue midodrine on discharge, can be discharged from cardiology standpoint, follow-up with cephalometric analyst outpatient within 2 weeks of discharge. #History of ventricular tachycardia #Severe bradycardia?now resolved - Bradycardia secondary to hyperkalemia, unresponsive to medical management, bradycardia now resolved after hemodialysis, currently in sinus rhythm. - Telemetry review shows heart rate dropped to 56 to 58 bpm mostly at night when patient asleep, patient asymptomatic, maintaining normal vitals, no chest pain or palpitations. At this point recommend continuing patient's Coreg and amiodarone, continue watch for symptoms, will consider reducing medication dosages if patient becomes symptomatic. #History of CKD progressing to ESRD - Management per nephrology, patient is pending outpatient dialysis chair placement #History of osteomyelitis status post BKA - Management per primary team Case discussed with cephalometric analyst Dr Marcus Montanez PGY2
[2024-09-05] MEDS: TAMSULOSIN HCL 0.4 MG CAPSULE PO (21:40)
[2024-09-06] VITALS (16 sets, daily range): BP systolic 108–120; BP diastolic 55–72; PULSE 59–84; RESP 17–95; TEMP 36.4–36.8; O2SAT 91–99
[2024-09-06] MEDS: ALBUTEROL RT 2.5 MG/0.5 ML NEBU INH ×3 (07:22→22:52)
[2024-09-06] MEDS: SODIUM CHLORIDE RT SOL 0.9% 3 ML NEBU INH ×3 (07:23→22:52)
--- NOTE | 2024-09-06 08:40 | PD.RESPRO ---
Documentation for date of: 09/06/24 Subjective Subjective Interval history: Patient seen and examined at bedside this morning. No acute overnight events. Patient made approximately 1.3 L of urine output in past 24 hours. Vitals are stable. Unfortunately no labs were drawn due to patient being a hard stick this morning. Discussed with nephrology and patient, patient will not have hemodialysis today. Plan will be to monitor patient's kidney function/urine output over the weekend while he is awaiting SNF authorization, and if everything is stable, we will remove tunneled dialysis catheter. At bedside, patient has no acute complaints other than not having a bowel movement for several days. Will add bowel regimen. Exam Vital Signs Temp Pulse Resp BP Pulse Ox O2 Del Method O2 Flow Rate 97.6 F 61 18 118/70 93 L Room Air 2 09/06/24 08:00 09/06/24 08:00 09/06/24 08:00 09/06/24 08:00 09/06/24 08:00 09/06/24 08:00 09/02/24 04:00 Narrative Exam GENERAL: A&Ox3 . awake, elderly male, pleasant to speak with NEURO: CN 2-12 grossly normal but not formally tested; no focal neurological deficits HEENT: Atraumatic, Normocephalic. mucous membranes moist. Eyes open, symmetrical, & clear, tunneled dialysis cath in place, dressing clean and dry. Mild ecchymosis noted on neck, improving HEART: Normal S1, S2; RRR; no MRG appreciated LUNGS: Clear to auscultation with no wheezing or crackles. ABDOMEN: soft, non-distended, non-tender, bowel sounds heard, no guarding or rebound tenderness SKIN: No Rash or ecchymoses EXTREMITIES: bilateral BKA, amputation of the digits 3,4,5 of the right hand Objective Labs 09/07/24 04:45 09/07/24 04:45 ABG Interpretation ABG results: 08/21/24 08/21/24 08/22/24 20:24 23:24 04:35 ABG pH 7.26 L ABG pCO2 31 L ABG pO2 92 ABG HCO3 14 L ABG O2 Saturation 97 ABG Base Excess -12 L VBG pH 7.32 L 7.22 L VBG pCO2 30 L 35 L VBG pO2 66 H 85 H VBG Base Excess -10 L -12 L 08/24/24 08:40 ABG pH ABG pCO2 ABG pO2 ABG HCO3 ABG O2 Saturation ABG Base Excess VBG pH 7.36 VBG pCO2 31 L VBG pO2 80 H VBG Base Excess -8 L Quality Measures Quality Measures VTE prophylaxis Advance care planning discussed with:: patient and spouse Assessment & Plan Assessment Current Active Medications: Generic Name Dose Route Start Last Admin Trade Name Freq PRN Reason Stop Dose Admin Acetaminophen 650 mg 08/21/24 23:37 Acetaminophen 325 Mg Tablet PO 09/20/24 23:36 Q4HR PRN PAIN SCALE 1-3 (mild Acetaminophen 650 mg 08/21/24 23:37 Acetaminophen Supp 650 Mg Supp RI 09/20/24 23:36 Q4HR PRN PAIN SCALE 1-3 (mild Al Hydrox/Mg Hydrox/Simethicone 30 ml 08/22/24 00:31 Mg Hyd/Al Hyd/Stephy (Maalox Reg) Susp 30 Ml Udc PO 09/20/24 23:36 Q4HR PRN Heartburn or Upset Stomach Albuterol 2.5 mg 08/26/24 15:00 09/06/24 07:22 Albuterol Rt 2.5 Mg/0.5 Ml Nebu INH 09/25/24 14:59 2.5 mg Q8HRRT KENNY Administration Amiodarone HCl 200 mg 08/24/24 15:00 09/05/24 08:29 Amiodarone Hcl 200 Mg Tablet PO 09/23/24 14:59 200 mg QDAY KENNY Administration Apixaban 2.5 mg 09/02/24 21:00 09/05/24 21:40 Apixaban 2.5 Mg Tablet PO 10/02/24 20:59 2.5 mg BID KENNY Administration Aspirin 81 mg 09/03/24 09:00 09/05/24 08:29 Aspirin Ec 81 Mg Tabec PO 10/03/24 08:59 81 mg QDAY KENNY Administration Carvedilol 3.125 mg 08/28/24 17:30 09/05/24 17:37 Carvedilol 3.125 Mg Tablet PO 09/27/24 17:29 3.125 mg BIDWM KENNY Administration Citric Acid/Sodium Citrate 30 ml 09/03/24 21:00 09/05/24 21:40 Citric Acid/Sodium Citr 15 Ml Udc (Bicitra) PO 10/03/24 20:59 30 ml BID KENNY Administration Dextrose 25 ml 08/22/24 04:20 08/22/24 11:43 Dextrose 50%-Water Inj 50 Ml Syringe IV 09/21/24 04:19 25 ml Q15MIN PRN Administration BG 50-70 responsive npo pt Dextrose 50 ml 08/22/24 04:20 Dextrose 50%-Water Inj 50 Ml Syringe IV 09/21/24 04:19 Q15MIN PRN BG <50 OR BG <70 & pt unresponsive Ferrous Sulfate 325 mg 08/24/24 08:30 09/05/24 08:29 Ferrous Sulf 325 Mg Tablet PO 09/23/24 08:29 325 mg QOD KENNY Administration Heparin Sodium (Porcine) 3,500 unit 08/27/24 15:36 09/01/24 11:53 Heparin Sod Inj 1000 Unit/Ml Vial 10 Ml INDWELLCAT 09/10/24 15:35 3,500 unit PRN PRN Administration DIALYSIS Albumin Human 25 gm in 100 mls @ 100 mls/min 08/22/24 05:34 Albuminar-25 Ivpb IV PRN PRN DIALYSIS Insulin Human Lispro 0 unit 08/29/24 07:30 09/06/24 08:01 Insulin Lispro (Admelog) 1 Unit/0.01 Ml Unit SC 09/28/24 07:29 Not Given AC [facility] Protocol Magnesium Hydroxide 30 ml 08/21/24 23:37 Milk Of Magnesia Susp 30 Ml Udc PO 09/20/24 23:36 QDAY PRN CONSTIPATION Midodrine 5 mg 08/30/24 13:24 Midodrine 5 Mg Tablet PO 09/27/24 21:59 TID PRN SBP < 100 or MAP < 65 Pharmacy Consult 1 each 08/23/24 08:21 Pharmacy To Consult Patient XX 09/22/24 08:20 PRN PRN Starting 24Hr Continuous/Intermittent Dialysis Sodium Chloride 3 ml 08/22/24 14:07 09/06/24 07:23 Sodium Chloride Rt Jing 0.9% 3 Ml Nebu INH 09/21/24 14:06 3 ml PRN PRN Administration SOLN Tamsulosin HCl 0.4 mg 09/02/24 21:00 09/05/24 21:40 Tamsulosin Hcl 0.4 Mg Capsule PO 04/24/25 20:59 0.4 mg HS KENNY Administration Plan Mr. Galdamez is a 64-year-old male with a past medical history of hypertension, hyperlipidemia, CKD stage IIIb, diabetes, bilateral BKA's, A-fib, CAD status post stent, HFrEF with ejection fraction 10 to 15% who presented to the ED on 08/21/2024 from [facility] with altered mental status and generalized weakness. #Goals of care Had on 09/05. is working with her insurance to try and have dialysis to be authorized in [place] via [facility]. Per SS, plan to follow up with dialysis center in a.m. #ESRD #New onset hemodialysis post tunneled dialysis catheter, 08/26 #Worsening JADIEL on CKD required CRRT, now ESRD #Lactic acidosis -improved #Hyperkalemia - resolved -creatinine on admission 6.3, GFR 9, lactic acid 5.1, potassium on admission 7.5 -During this ICU admission pt is started on CRRT -Pt underwent permanent tunneled dialysis catheter, per nephrology recs pt will need to undergo HD dialysis 2x per week out patient -nephrology following -Pending insurance authorization for outpatient dialysis at [facility] => accepted in [facility] in [place] however patient unable to secure transport; see GOC above -09/06: Patient had approximate 1300 cc of urine output in past 24 hours; no labs today; case discussed with patient & nephro: NO HD TODAY; continue to monitor U output with strict I/Os and renal function. Likely DC tunneled dialysis catheter on Sunday if patient continues to improve #Acute blood loss anemia, resolved #Iron deficiency anemia patient required 1 transfusion early in admission; not thought to be a GI bleed but moreso related to ESRD/lack of EPO => improved after Epo Iron panel: Iron 42, TIBC 235, Iron sat 17 and unsat Iron binding 193 FOBT negative Continue home FeSO4 qOD #UTI, resolved #hematuria, resolved #pyuria, resolved -On admission, Urinalysis is positive for leukocyte esterace, urine rbc 5180, urine wbc 1928 -urine culture show no growth initially -Repeat urine cultures on 08/28 grew VRE however patient is asymptomatic; labs/vitals do not reflect a current infection => likely colonization -Pt completed ceftriaoxone 08/27-08/30 #Cardiogenic shock- resolved #symptomatic bradycardia 2/2 to hyperkalemia #HFrEF (10-15%, improved to 40%) -On admission pt was found to have bradycardia with HR in 40's, atropine x2 was given in the ED -Due to hypotension with BP of 77/55 and MAP <65, pt was started on levophed and dopamine drips, eventually weaned off on 08/24 -Per cardiology-ICD not indicated in patient for following reasons: Patient has NYHA Class IV with drug-refractory CHF, reasonable expectation of survival with an acceptable functional status < 6 months -Per cardiology, patient currently not a candidate for surgical intervention -On discharge, patient will benefit from GDMT optimized with Entresto if blood pressure tolerates. Currently BP is too soft to start GDMT, pt will need to follow up outpatient cardiology -Repeat echo results : Anteroseptal akinesis with moderate LV dysfunction approximate ejection fraction is 40%. Normal RV function normal PA pressure Mild to moderate mitral regurgitation Moderate TR -Cardio following -Started Coreg 3.25mg BID (parameters hold if SBP <100, HR <50, MAP <65) -Will hold off on adding ACEi/ARB due to possible kidney recovery #history of A-fib -Pt has history of a-fib and home meds include metoprolol, amiodarone and eliquis. CHADVASc score 4 and HAS-BLED 3 -NSR -Continue home amiodarone Qday; eliquis 2.5mg BID #insulin dependent Type 2 diabetes, uncontrolled #Hx of osteomylitis s/p bilaterally BKA -A1c 10.2 -Pt home medications include glargine 15 units BID -insulin sliding scale started -hypoglycemic protocol in place -Pt underwent bilateral BKA due to long standing uncontrolled T2DM #BPH resumed home flomax #Transiminitis - resolved -On admission AST and ALT mildy elevated, T. bili and ALP with in normal range. -Likely secondary to shock, will continue to monitor as shock has now resolved. Health Maintenance Disposition: Pending SNF auth; likely removal of TDC on Friday 09/08 DVT Prophylaxis: eliquis 2.5mg BID GI Prophylaxis: not indicated Diet: renal + glucerna Lines: Peripheral lines Code status: DNR Patient seen and care discussed with my attending Dr. Raman. Jasiel Aggarwal MD PGY-3 Attending Provider Attestation/Addendum I reviewed labs, imaging, EKG, home medications and prior available records. Face to face evaluation was performed by me. I have personally examined the patient and discussed assessment and plan with the IM team. I reviewed the resident note and agree with the plan with exceptions as below. Cardiogenic shock, resolved HFrEF EF 40% Acute kidney injury Hemodialysis status Hyperkalemia, resolved S/p bilateral BKA Discussed with nephrology: Since the kidney function is stable, he may not need hemodialysis. Keep the patient and monitor kidney function closely. Remove dialysis catheter on Sunday if kidney function remains stable Patient is pending authorization to go back to SNF. If he needs dialysis, he needs to go to [place] as his insurance denied dialysis chair in [place] Discussed with social worker psychiatric: Had a meeting with the family. Patient declined hospice which was the other choice. Dose medications based on GFR Continue Coreg. No ACEI/ARBs in the setting of possible kidney recovery in the next few weeks Renal diet upon discharge
[2024-09-06] MEDS: AMIODARONE HCL 200 MG TABLET PO (08:42)
[2024-09-06] MEDS: carVEDILOL 3.125 MG TABLET PO ×2 (08:43→18:12)
[2024-09-06] MEDS: APIXABAN 2.5 MG TABLET PO ×2 (08:43→21:16)
[2024-09-06] MEDS: CITRIC ACID/SODIUM CITR 15 ML UDC (BICITRA) 30 ML PO ×2 (08:43→21:16)
[2024-09-06] MEDS: ASPIRIN EC 81 MG TABEC PO (08:43)
--- NOTE | 2024-09-06 10:54 | ESPR_ITS ---
Documentation for date of: 09/06/24 Subjective Subjective Interval history: Patient is seen and examined bedside No acute overnight events. Denies any other complaints. Patient found to have urine output of 1325mL in the last 24 hours, improving urine output Vitals are stable. Physical examination remains unchanged Labs are not done today yet As urine output is improving and renal functions remained stable, will withhold dialysis. If patient remains stable as his current condition, may not need dialysis Exam Vital Signs Temp Pulse Resp BP Pulse Ox O2 Del Method O2 Flow Rate 97.6 F 61 18 118/70 93 L Room Air 2 09/06/24 08:00 09/06/24 08:43 09/06/24 08:00 09/06/24 08:43 09/06/24 08:00 09/06/24 08:00 09/02/24 04:00 Narrative Exam General: Awake. Lying comfortably on the bed HEENT: Normocephalic, atraumatic, mucous membranes moist. Heart: Regular rate and rhythm, no murmurs. Lungs: Clear to auscultation with no wheezing or crackles. Right tunneled dialysis catheter Abdomen: Soft, nondistended, nontender, positive bowel sounds. ?No guarding or rebound tenderness. Neurologic: Alert and oriented x3, no gross neurological deficit, and patient able to move all 4 extremities. Extremities: No edema. 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 B/L BKA Skin: No rash or ecchymoses. Objective Labs 09/06/24 11:50 09/06/24 11:50 ABG Interpretation ABG results: 08/21/24 08/21/24 08/22/24 20:24 23:24 04:35 ABG pH 7.26 L ABG pCO2 31 L ABG pO2 92 ABG HCO3 14 L ABG O2 Saturation 97 ABG Base Excess -12 L VBG pH 7.32 L 7.22 L VBG pCO2 30 L 35 L VBG pO2 66 H 85 H VBG Base Excess -10 L -12 L 08/24/24 08:40 ABG pH ABG pCO2 ABG pO2 ABG HCO3 ABG O2 Saturation ABG Base Excess VBG pH 7.36 VBG pCO2 31 L VBG pO2 80 H VBG Base Excess -8 L Quality Measures Quality Measures VTE prophylaxis Advance care planning discussed with:: patient Assessment & Plan Assessment Current Active Medications: Generic Name Dose Route Start Last Admin Trade Name Freq PRN Reason Stop Dose Admin Acetaminophen 650 mg 08/21/24 23:37 Acetaminophen 325 Mg Tablet PO 09/20/24 23:36 Q4HR PRN PAIN SCALE 1-3 (mild Acetaminophen 650 mg 08/21/24 23:37 Acetaminophen Supp 650 Mg Supp OR 09/20/24 23:36 Q4HR PRN PAIN SCALE 1-3 (mild Al Hydrox/Mg Hydrox/Simethicone 30 ml 08/22/24 00:31 Mg Hyd/Al Hyd/Stephy (Maalox Reg) Susp 30 Ml Udc PO 09/20/24 23:36 Q4HR PRN Heartburn or Upset Stomach Albuterol 2.5 mg 08/26/24 15:00 09/06/24 07:22 Albuterol Rt 2.5 Mg/0.5 Ml Nebu INH 09/25/24 14:59 2.5 mg Q8HRRT KENNY Administration Amiodarone HCl 200 mg 08/24/24 15:00 09/06/24 08:42 Amiodarone Hcl 200 Mg Tablet PO 09/23/24 14:59 200 mg QDAY KENNY Administration Apixaban 2.5 mg 09/02/24 21:00 09/06/24 08:43 Apixaban 2.5 Mg Tablet PO 10/02/24 20:59 2.5 mg BID KENNY Administration Aspirin 81 mg 09/03/24 09:00 09/06/24 08:43 Aspirin Ec 81 Mg Tabec PO 10/03/24 08:59 81 mg QDAY KENNY Administration Carvedilol 3.125 mg 08/28/24 17:30 09/06/24 08:43 Carvedilol 3.125 Mg Tablet PO 09/27/24 17:29 3.125 mg BIDWM KENNY Administration Citric Acid/Sodium Citrate 30 ml 09/03/24 21:00 09/06/24 08:43 Citric Acid/Sodium Citr 15 Ml Udc (Bicitra) PO 10/03/24 20:59 30 ml BID KENNY Administration Dextrose 25 ml 08/22/24 04:20 08/22/24 11:43 Dextrose 50%-Water Inj 50 Ml Syringe IV 09/21/24 04:19 25 ml Q15MIN PRN Administration BG 50-70 responsive npo pt Dextrose 50 ml 08/22/24 04:20 Dextrose 50%-Water Inj 50 Ml Syringe IV 09/21/24 04:19 Q15MIN PRN BG <50 OR BG <70 & pt unresponsive Ferrous Sulfate 325 mg 08/24/24 08:30 09/05/24 08:29 Ferrous Sulf 325 Mg Tablet PO 09/23/24 08:29 325 mg QOD KENNY Administration Heparin Sodium (Porcine) 3,500 unit 08/27/24 15:36 09/01/24 11:53 Heparin Sod Inj 1000 Unit/Ml Vial 10 Ml INDWELLCAT 09/10/24 15:35 3,500 unit PRN PRN Administration DIALYSIS Albumin Human 25 gm in 100 mls @ 100 mls/min 08/22/24 05:34 Albuminar-25 Ivpb IV PRN PRN DIALYSIS Insulin Human Lispro 0 unit 08/29/24 07:30 09/06/24 08:01 Insulin Lispro (Admelog) 1 Unit/0.01 Ml Unit SC 09/28/24 07:29 Not Given AC [facility] Protocol Magnesium Hydroxide 30 ml 08/21/24 23:37 Milk Of Magnesia Susp 30 Ml Udc PO 09/20/24 23:36 QDAY PRN CONSTIPATION Midodrine 5 mg 08/30/24 13:24 Midodrine 5 Mg Tablet PO 09/27/24 21:59 TID PRN SBP < 100 or MAP < 65 Pharmacy Consult 1 each 08/23/24 08:21 Pharmacy To Consult Patient XX 09/22/24 08:20 PRN PRN Starting 24Hr Continuous/Intermittent Dialysis Sodium Chloride 3 ml 08/22/24 14:07 09/06/24 07:23 Sodium Chloride Rt Jing 0.9% 3 Ml Nebu INH 09/21/24 14:06 3 ml PRN PRN Administration SOLN Tamsulosin HCl 0.4 mg 09/02/24 21:00 09/05/24 21:40 Tamsulosin Hcl 0.4 Mg Capsule PO 10/02/24 20:59 0.4 mg HS KENNY Administration Plan A 64-year-old male with significant past medical history of hypertension, insulin-dependent diabetes mellitus, CAD s/p PCI, HFrEF [EF 10 to 15%], CKD stage III, bilateral below-knee amputations, atrial fibrillation living in long-term facility was brought to the hospital with chief complaints of worsening mentation, shortness of breath and generalized weakness for the past 2 days. # Acute on chronic kidney disease, stage IIIb, resolving Likely prerenal versus ATN in the setting of shock -Patient presented to the hospital with the complaints of shortness of breath worsening mentation and per patient's patient had abdominal pain and foul- smelling urine. -Baseline creatinine as of 07/2024 is 2.4 -On the day of admission, 08/21/2024, creatinine is 6.3 > 08/25, BUN 25, Cr 2.8 1 >08/26, BUN 18, Cr 2 >08/28, BUN 15, Cr 2.1 >08/29, BUN 30, Cr 2.8 >08/26, Cr 2.8 -Urine analysis showed turbid urine with 2+ proteinuria, 3+ blood, 5180 RBC, 1928 WBC Plan -Patient got CRRT on 08/22 and one more session done on 08/23, HD on 08/26, 08/27, 08/29, 09/01 -As the patient renal functions remained stable and is able to maintain adequate amount of urine output, will withhold dialysis -will continue dialysis 2 times per week till patient renal functions come back to his normal baseline and makes adequate amount of urine output -Monitor renal functions and avoid nephrotoxic medications #Hypokalemia, resolved -On 09/05/2024, potassium is 4.1 -Recommend to monitor electrolytes and replete accordingly. # Hyperkalemia, resolved # Hyperphosphatemia, resolved # Lactic acidosis, resolved -Found to have potassium of 7.5 at the time of admission -Since 08/23/2024, Electrolytes are within normal limits #Acute encephalopathy 2/2 UTI #Chronic right parietal stroke #Shock #Acute hypoxic respiratory failure. #Complicated UTI #Chronic anemia #IDDM #Elevated LFT's To be treated per primary team Thank you for allowing us to involved in the care of the patient Patient plan of care was discussed with the attending physician, Dr. Marian Gates, PGY1 Attending Provider Attestation/Addendum Patient seen and examined with resident physician Dr. Pollard. Note reviewed, agree with findings and recommendations. Patient with sepsis and JADIEL. On broad-spectrum antibiotics. Patient received 2 conventional dialysis treatments and 2 CRRT treatment days, four conventional dialysis. Patient noted to have improving creatinine with good urine output. Held dialysis. Will reevaluate on Sunday.
[2024-09-06] MEDS: INSULIN LISPRO (AdmeLOG) 1 UNIT/0.01 ML UNIT SC ×2 (11:33→17:04)
[2024-09-06 12:24] LABS: Basophils % (Auto) 1 % (0-2.5); Eosinophils # (Auto) 0.3 Thou/mm3 (0.0-0.5); Eosinophils % (Auto) 3 % (0-10); Hematocrit 28.6 % (41.0-53.0); Hemoglobin 9.3 g/dL (13.5-16.0); Immature Granulocytes % (Auto) 1 % (0-0); Immature Granulocytes Auto 0.05 Thou/mm3 (0.00-0.00); Lymphocytes # (Auto) 1.4 Thou/mm3 (1.0-4.8); Lymphocytes % (Auto) 20 % (10-50); Mean Corpuscular HGB Conc 32.5 g/dl (31.0-37.0); Mean Corpuscular Hemoglobin 27.2 pg (25.0-35.0); Mean Corpuscular Volume 84 fL (80-100); Monocytes # (Auto) 0.5 Thou/mm3 (0.0-0.8); Monocytes % (Auto) 7 % (0-12); Neutrophils % (Auto) 69 % (37-80); Nucleated Red Blood Cell % 0 /100 WBC (0); Platelet Count 294 Thou/mm3 (140-440); RDW Standard Deviation 61.3 fL (35.1-43.9); Red Blood Count 3.42 Miln/mm3 (4.50-5.90); White Blood Count 7.3 Thou/mm3 (3.8-10.6)
[2024-09-06 12:46] LABS: Alanine Aminotransferase 13 U/L (10-49); Albumin, Serum 2.9 gm/dL (3.4-4.8); Albumin/Globulin Ratio 1.1 (1.2-2.2); Alkaline Phosphatase 78 U/L (46-116); Anion Gap 6 (7-16); Aspartate Amino Transferase 17 U/L (0-34); BUN/Creatinine Ratio 13 Ratio (12-20); Bilirubin,Total 0.4 mg/dL (0.3-1.2); Blood Urea Nitrogen 30 mg/dL (9-23); Calcium 7.9 mg/dL (8.3-10.6); Calcium (Corrected) 8.8 mg/dL (8.5-10.1); Carbon Dioxide 33.1 mMol/L (20.0-31.0); Chloride 101 mMol/L (98-107); Creatinine (Component) 2.3 mg/dL (0.6-1.3); Estimated Creatinine Clearance 28.5 mL/min (>60); Globulin 2.7 gm/dL (2.3-3.5); Glucose 201 mg/dL (74-106); Magnesium 1.8 mg/dL (1.6-2.6); Osmolality,Calculated 291 (275-295); Phosphorous 3.9 mg/dL (2.4-5.1); Potassium 4.5 mMol/L (3.4-5.1); Sodium 140 mMol/L (136-145); Total Protein 5.6 gm/dL (5.7-8.2); eGFR 31 See Note
[2024-09-06] MEDS: TAMSULOSIN HCL 0.4 MG CAPSULE PO (21:16)
[2024-09-07] VITALS (11 sets, daily range): BP systolic 101–126; BP diastolic 59–75; PULSE 61–69; RESP 15–92; TEMP 36.2–37.1; O2SAT 91–99
[2024-09-07 05:57] LABS: Basophils % (Auto) 1 % (0-2.5); Eosinophils # (Auto) 0.3 Thou/mm3 (0.0-0.5); Eosinophils % (Auto) 3 % (0-10); Hematocrit 27.7 % (41.0-53.0); Immature Granulocytes % (Auto) 1 % (0-0); Immature Granulocytes Auto 0.06 Thou/mm3 (0.00-0.00); Lymphocytes # (Auto) 1.8 Thou/mm3 (1.0-4.8); Lymphocytes % (Auto) 21 % (10-50); Mean Corpuscular HGB Conc 31.4 g/dl (31.0-37.0); Mean Corpuscular Hemoglobin 26.9 pg (25.0-35.0); Mean Corpuscular Volume 86 fL (80-100); Monocytes # (Auto) 0.7 Thou/mm3 (0.0-0.8); Monocytes % (Auto) 8 % (0-12); Neutrophils % (Auto) 67 % (37-80); Nucleated Red Blood Cell % 0 /100 WBC (0); Platelet Count 323 Thou/mm3 (140-440); RDW Standard Deviation 62.7 fL (35.1-43.9); Red Blood Count 3.23 Miln/mm3 (4.50-5.90); White Blood Count 8.8 Thou/mm3 (3.8-10.6)
[2024-09-07 06:30] LABS: Hemoglobin 8.7 g/dL (13.5-16.0)
[2024-09-07 06:31] LABS: Alanine Aminotransferase 11 U/L (10-49); Albumin/Globulin Ratio 1.2 (1.2-2.2); Alkaline Phosphatase 73 U/L (46-116); Anion Gap 7 (7-16); Aspartate Amino Transferase 20 U/L (0-34); BUN/Creatinine Ratio 14 Ratio (12-20); Bilirubin,Total 0.4 mg/dL (0.3-1.2); Blood Urea Nitrogen 33 mg/dL (9-23); Calcium 7.7 mg/dL (8.3-10.6); Calcium (Corrected) 8.5 mg/dL (8.5-10.1); Carbon Dioxide 30.8 mMol/L (20.0-31.0); Chloride 102 mMol/L (98-107); Creatinine (Component) 2.4 mg/dL (0.6-1.3); Estimated Creatinine Clearance 27.3 mL/min (>60); Globulin 2.5 gm/dL (2.3-3.5); Glucose 174 mg/dL (74-106); Magnesium 1.7 mg/dL (1.6-2.6); Osmolality,Calculated 290 (275-295); Phosphorous 3.5 mg/dL (2.4-5.1); Potassium 4.7 mMol/L (3.4-5.1); Sodium 140 mMol/L (136-145); Total Protein 5.5 gm/dL (5.7-8.2); eGFR 29 See Note
[2024-09-07] MEDS: SODIUM CHLORIDE RT SOL 0.9% 3 ML NEBU INH ×2 (07:19→15:01)
[2024-09-07] MEDS: ALBUTEROL RT 2.5 MG/0.5 ML NEBU INH ×2 (07:19→15:01)
[2024-09-07] MEDS: INSULIN LISPRO (AdmeLOG) 1 UNIT/0.01 ML UNIT SC ×2 (08:07→11:07)
[2024-09-07] MEDS: APIXABAN 2.5 MG TABLET PO ×2 (08:09→20:41)
[2024-09-07] MEDS: ASPIRIN EC 81 MG TABEC PO (08:09)
[2024-09-07] MEDS: CITRIC ACID/SODIUM CITR 15 ML UDC (BICITRA) 30 ML PO ×2 (08:09→20:42)
[2024-09-07] MEDS: carVEDILOL 3.125 MG TABLET PO ×2 (08:09→18:21)
[2024-09-07] MEDS: FERROUS SULF 325 MG TABLET PO (08:09)
[2024-09-07] MEDS: AMIODARONE HCL 200 MG TABLET PO (08:09)
--- NOTE | 2024-09-07 09:55 | ESPR_ITS ---
Documentation for date of: 09/07/24 Subjective Subjective Interval history: Mr. Galdamez is a 64-year-old male with significant past medical history of hypertension, insulin-dependent diabetes mellitus, CAD s/p PCI, HFrEF [EF 10 to 15%], CKD stage III, bilateral below-knee amputations, atrial fibrillation living in [place] [facility] facility was brought to the hospital with chief complaints of worsening mentation, shortness of breath and generalized weakness for the past 2 days. Patient was noted to have heart rate dropped to 40s during transit time in the ambulance for which patient was externally paced and 2 doses of atropine was given without response. In the ED, patient was found to have heart rate of 40 with blood pressure of 80/45 mmHg for which cardiology was consulted for suspected AV block. Per restaurant hostess, there is no concern for AV block and patient was found to have junctional escape rhythm with underlying atrial fibrillation and recommended to start on Levophed and low-dose dopamine. Patient was admitted to ICU for further care. Also noted patient had decreased p.o. intake 2 days before the day of admission and abdominal discomfort. ED Course: -Initial vitals were blood pressure 111/58 mmHg, SpO2 79% with 15 L oxygen -Labs significant for Hb 8.3, potassium 7.5, bicarb 14, anion gap 19, BUN 85, creatinine 6.2, lactate 7. Urine analysis showed 5000 RBC and 2000 WBC. -Head CT was negative for acute hemorrhage and infarct. -Patient was admitted for shock requiring vasopressors Nephrology was consulted for acute on chronic kidney injury. Overnight patient received 2 hours of conventional hemo-dialysis session due to metabolic acidosis and hyperkalemia. Decided to proceed with CRRT as patient currently on pressors. 08/31/2024 patient currently seen in medical floor. Received 2 CRRT sessions and subsequently on conventional dialysis. Last dialysis Sunday. Moved out of ICU. Feeling much better today. 09/07/2024 patient currently seen in medical floor. Urine output good. Hold off on dialysis. Review of Systems Review of Systems Narrative Review of Systems: CONSTITUTIONAL: Patient denies any fever, chills. HEENT: Denies any visual disturbances or hearing problems. CARDIOVASCULAR: Patient denies any chest pain, shortness of breath, swelling in the lower extremities. PULMONARY: Patient denies any shortness of breath, cough. GASTROINTESTINAL: Patient denies any abdominal pain, constipation, nausea, vomiting, diarrhea. GENITOURINARY: Patient denies any urinary symptoms of burning or frequency or hematuria, denies any form in the urine. SKIN: Denies any rash. MUSCULOSKELETAL: Gait imbalance, bilateral BKA NEUROLOGICAL: Denies any neurological problems of strokes, seizures or confusion. Denies any memory problems. PSYCHIATRIC: Denies any depression or anxiety. LYMPHATICS : No lymphadenopathy Exam Vital Signs Temp Pulse Resp BP Pulse Ox O2 Del Method O2 Flow Rate 36.9 C 67 15 120/69 97 Room Air 2 09/07/24 07:40 09/07/24 08:09 09/07/24 07:40 09/07/24 08:09 09/07/24 07:40 09/07/24 07:40 09/02/24 04:00 Narrative Exam GENERAL APPEARANCE: Patient seems to be comfortable, adequately hydrated and nourished. HEENT: EOMI, PERRLA NECK: Neck supple, no JVD or bruit CARDIOVASCULAR: Heart regular, no murmurs LUNGS/CHEST: Chest clear to auscultation. No rales, rhonchi, wheezing ABDOMEN: Soft, nontender, nondistended. No masses. Normal bowel sounds. EXTREMITIES: No edema, clubbing or cyanosis. SKIN: Skin exam normal without any rashes. IJ dialysis catheter MUSCULOSKELETAL: Bilateral BKA NEUROLOGICAL : No neurological deficits Objective Labs 09/09/24 05:00 09/08/24 09:23 Labs: Laboratory Results - last 24 hr 09/06/24 09/07/24 11:50 04:45 WBC 7.3 8.8 RBC 3.42 L 3.23 L Hgb 9.3 L 8.7 L Hct 28.6 L 27.7 L MCV 84 86 MCH 27.2 26.9 MCHC 32.5 31.4 RDW Std Deviation 61.3 H 62.7 H Plt Count 294 D 323 Neut % (Auto) 69 67 Lymph % (Auto) 20 21 [place] % (Auto) 7 8 Eos % (Auto) 3 3 Baso % (Auto) 1 1 Neut # (Auto) 5.0 6.0 Lymph # (Auto) 1.4 1.8 [place] # (Auto) 0.5 0.7 Eos # (Auto) 0.3 0.3 Baso # (Auto) 0.0 0.0 Immature Gran # (Auto) 0.05 H 0.06 H Absolute Nucleated RBC 0.00 0.00 Immature Gran % 1 H 1 H Nucleated RBC % 0 0 Sodium 140 140 Potassium 4.5 4.7 Chloride 101 102 Carbon Dioxide 33.1 H 30.8 Anion Gap 6 L 7 BUN 30 H 33 H Creatinine 2.3 H 2.4 H Estim Creat Clear Calc 28.5 L 27.3 L eGFR 31 L 29 L BUN/Creatinine Ratio 13 14 Glucose 201 H 174 H Calculated Osmolality 291 290 Calcium 7.9 L 7.7 L Corrected Calcium 8.8 8.5 Phosphorus 3.9 3.5 Magnesium 1.8 1.7 Total Bilirubin 0.4 0.4 AST 17 20 ALT 13 11 Alkaline Phosphatase 78 73 Total Protein 5.6 L 5.5 L Albumin 2.9 L 3.0 L Globulin 2.7 2.5 Albumin/Globulin Ratio 1.1 L 1.2 ABG Interpretation ABG results: 08/21/24 08/21/24 08/22/24 20:24 23:24 04:35 ABG pH 7.26 L ABG pCO2 31 L ABG pO2 92 ABG HCO3 14 L ABG O2 Saturation 97 ABG Base Excess -12 L VBG pH 7.32 L 7.22 L VBG pCO2 30 L 35 L VBG pO2 66 H 85 H VBG Base Excess -10 L -12 L 08/24/24 08:40 ABG pH ABG pCO2 ABG pO2 ABG HCO3 ABG O2 Saturation ABG Base Excess VBG pH 7.36 VBG pCO2 31 L VBG pO2 80 H VBG Base Excess -8 L Assessment & Plan Additional Assessment & Plan Additional Plan: 64-year-old male with significant past medical history of hypertension, insulin-dependent diabetes mellitus, CAD s/p PCI, HFrEF [EF 10 to 15%], CKD stage III, bilateral below-knee amputations, atrial fibrillation living in [place] [facility] was brought to the hospital with chief complaints of worsening mentation, shortness of breath and generalized weakness for the past 2 days. # Acute on chronic kidney disease, stage IIIb Likely prerenal versus ATN in the setting of shock -Patient presented to the hospital with the complaints of shortness of breath worsening mentation and per patient's patient had abdominal pain and foul- smelling urine. -Baseline creatinine as of 07/2024 is 2.4 -On the day of admission, 08/21/2024, creatinine is 6.3 -Urine analysis showed turbid urine with 2+ proteinuria, 3+ blood, 5180 RBC, 1928 WBC Plan -Patient got CRRT on 08/22 , 08/23 --subsequently on intermittent hemodialysis. Status post PermCath. Pending outpatient dialysis arrangements. Suspect patient in ATN -Monitor renal functions and avoid nephrotoxic medications -Continue antibiotics Patient started to make urine-hold dialysis. #Chronic right parietal stroke #Complicated UTI #Chronic anemia #IDDM #Elevated LFT's Per primary team Quality - progress note Quality Measures Quality Measures: VTE prophylaxis Reason for Continued Stay Reason for Continued Stay: further monitoring Procedures Arterial Line Size (Gauge): 18
--- NOTE | 2024-09-07 10:41 | ESPR_ITS ---
Documentation for date of: 09/07/24 Subjective Subjective Interval history: Patient seen and examined at bedside this morning. No acute overnight events. Patient noted to make approximately 1.2 L of urine in the past 24 hours and creatinine has been stable, 2.3?2.4. Pending insurance Auth, will follow-up with SS on 09/08. At this point we will plan to remove tunneled dialysis catheter prior to discharge. Vitals, labs reviewed. FBG within acceptable limits however [id number] glucose was 282 in the evening. Will give 5 units of Lantus in addition to SSI. ROS negative. Patient in good spirits. Exam Vital Signs Temp Pulse Resp BP Pulse Ox O2 Del Method O2 Flow Rate 98.4 F 67 15 120/69 97 Room Air 2 09/07/24 07:40 09/07/24 08:09 09/07/24 07:40 09/07/24 08:09 09/07/24 07:40 09/07/24 07:40 09/02/24 04:00 Narrative Exam GENERAL: A&Ox3 . awake, elderly male, pleasant to speak with NEURO: CN 2-12 grossly normal but not formally tested; no focal neurological deficits HEENT: Atraumatic, Normocephalic. mucous membranes moist. Eyes open, symmetrical, & clear, tunneled dialysis cath in place, dressing clean and dry. Mild ecchymosis noted on neck, improving HEART: Normal S1, S2; RRR; no MRG appreciated LUNGS: Clear to auscultation with no wheezing or crackles. ABDOMEN: soft, non-distended, non-tender, bowel sounds heard, no guarding or rebound tenderness SKIN: No Rash or ecchymoses EXTREMITIES: bilateral BKA, amputation of the digits 3,4,5 of the right hand Objective Labs 09/07/24 04:45 09/07/24 04:45 Labs: Laboratory Results - last 24 hr 09/06/24 09/07/24 11:50 04:45 WBC 7.3 8.8 RBC 3.42 L 3.23 L Hgb 9.3 L 8.7 L Hct 28.6 L 27.7 L MCV 84 86 MCH 27.2 26.9 MCHC 32.5 31.4 RDW Std Deviation 61.3 H 62.7 H Plt Count 294 D 323 Neut % (Auto) 69 67 Lymph % (Auto) 20 21 [place] % (Auto) 7 8 Eos % (Auto) 3 3 Baso % (Auto) 1 1 Neut # (Auto) 5.0 6.0 Lymph # (Auto) 1.4 1.8 [place] # (Auto) 0.5 0.7 Eos # (Auto) 0.3 0.3 Baso # (Auto) 0.0 0.0 Immature Gran # (Auto) 0.05 H 0.06 H Absolute Nucleated RBC 0.00 0.00 Immature Gran % 1 H 1 H Nucleated RBC % 0 0 Sodium 140 140 Potassium 4.5 4.7 Chloride 101 102 Carbon Dioxide 33.1 H 30.8 Anion Gap 6 L 7 BUN 30 H 33 H Creatinine 2.3 H 2.4 H Estim Creat Clear Calc 28.5 L 27.3 L eGFR 31 L 29 L BUN/Creatinine Ratio 13 14 Glucose 201 H 174 H Calculated Osmolality 291 290 Calcium 7.9 L 7.7 L Corrected Calcium 8.8 8.5 Phosphorus 3.9 3.5 Magnesium 1.8 1.7 Total Bilirubin 0.4 0.4 AST 17 20 ALT 13 11 Alkaline Phosphatase 78 73 Total Protein 5.6 L 5.5 L Albumin 2.9 L 3.0 L Globulin 2.7 2.5 Albumin/Globulin Ratio 1.1 L 1.2 ABG Interpretation ABG results: 08/21/24 08/21/24 08/22/24 20:24 23:24 04:35 ABG pH 7.26 L ABG pCO2 31 L ABG pO2 92 ABG HCO3 14 L ABG O2 Saturation 97 ABG Base Excess -12 L VBG pH 7.32 L 7.22 L VBG pCO2 30 L 35 L VBG pO2 66 H 85 H VBG Base Excess -10 L -12 L 08/24/24 08:40 ABG pH ABG pCO2 ABG pO2 ABG HCO3 ABG O2 Saturation ABG Base Excess VBG pH 7.36 VBG pCO2 31 L VBG pO2 80 H VBG Base Excess -8 L Quality Measures Quality Measures VTE prophylaxis Advance care planning discussed with:: patient and spouse Assessment & Plan Assessment Current Active Medications: Generic Name Dose Route Start Last Admin Trade Name Freq PRN Reason Stop Dose Admin Acetaminophen 650 mg 08/21/24 23:37 Acetaminophen 325 Mg Tablet PO 09/20/24 23:36 Q4HR PRN PAIN SCALE 1-3 (mild Acetaminophen 650 mg 08/21/24 23:37 Acetaminophen Supp 650 Mg Supp OK 09/20/24 23:36 Q4HR PRN PAIN SCALE 1-3 (mild Al Hydrox/Mg Hydrox/Simethicone 30 ml 08/22/24 00:31 Mg Hyd/Al Hyd/Stephy (Maalox Reg) Susp 30 Ml Udc PO 09/20/24 23:36 Q4HR PRN Heartburn or Upset Stomach Albuterol 2.5 mg 08/26/24 15:00 09/07/24 07:19 Albuterol Rt 2.5 Mg/0.5 Ml Nebu INH 09/25/24 14:59 2.5 mg Q8HRRT KENNY Administration Amiodarone HCl 200 mg 08/24/24 15:00 09/07/24 08:09 Amiodarone Hcl 200 Mg Tablet PO 09/23/24 14:59 200 mg QDAY KENNY Administration Apixaban 2.5 mg 09/02/24 21:00 09/07/24 08:09 Apixaban 2.5 Mg Tablet PO 10/02/24 20:59 2.5 mg BID KENNY Administration Aspirin 81 mg 09/03/24 09:00 09/07/24 08:09 Aspirin Ec 81 Mg Tabec PO 10/03/24 08:59 81 mg QDAY KENNY Administration Carvedilol 3.125 mg 08/28/24 17:30 09/07/24 08:09 Carvedilol 3.125 Mg Tablet PO 09/27/24 17:29 3.125 mg BIDWM KENNY Administration Citric Acid/Sodium Citrate 30 ml 09/03/24 21:00 09/07/24 08:09 Citric Acid/Sodium Citr 15 Ml Udc (Bicitra) PO 10/03/24 20:59 30 ml BID KENNY Administration Dextrose 25 ml 08/22/24 04:20 08/22/24 11:43 Dextrose 50%-Water Inj 50 Ml Syringe IV 09/21/24 04:19 25 ml Q15MIN PRN Administration BG 50-70 responsive npo pt Dextrose 50 ml 08/22/24 04:20 Dextrose 50%-Water Inj 50 Ml Syringe IV 09/21/24 04:19 Q15MIN PRN BG <50 OR BG <70 & pt unresponsive Ferrous Sulfate 325 mg 08/24/24 08:30 09/07/24 08:09 Ferrous Sulf 325 Mg Tablet PO 09/23/24 08:29 325 mg QOD KENNY Administration Heparin Sodium (Porcine) 3,500 unit 08/27/24 15:36 09/01/24 11:53 Heparin Sod Inj 1000 Unit/Ml Vial 10 Ml INDWELLCAT 09/10/24 15:35 3,500 unit PRN PRN Administration DIALYSIS Albumin Human 25 gm in 100 mls @ 100 mls/min 08/22/24 05:34 Albuminar-25 Ivpb IV PRN PRN DIALYSIS Insulin Human Lispro 0 unit 08/29/24 07:30 09/07/24 08:07 Insulin Lispro (Admelog) 1 Unit/0.01 Ml Unit SC 09/28/24 07:29 2 unit AC KENNY Administration Protocol Magnesium Hydroxide 30 ml 08/21/24 23:37 Milk Of Magnesia Susp 30 Ml Udc PO 09/20/24 23:36 QDAY PRN CONSTIPATION Midodrine 5 mg 08/30/24 13:24 Midodrine 5 Mg Tablet PO 09/27/24 21:59 TID PRN SBP < 100 or MAP < 65 Pharmacy Consult 1 each 08/23/24 08:21 Pharmacy To Consult Patient XX 09/22/24 08:20 PRN PRN Starting 24Hr Continuous/Intermittent Dialysis Sodium Chloride 3 ml 08/22/24 14:07 09/07/24 07:19 Sodium Chloride Rt Jing 0.9% 3 Ml Nebu INH 09/21/24 14:06 3 ml PRN PRN Administration SOLN Tamsulosin HCl 0.4 mg 09/02/24 21:00 09/06/24 21:16 Tamsulosin Hcl 0.4 Mg Capsule PO 10/02/24 20:59 0.4 mg HS KENNY Administration Plan Mr. Galdamez is a 64-year-old male with a past medical history of hypertension, hyperlipidemia, CKD stage IIIb, diabetes, bilateral BKA's, A-fib, CAD status post stent, HFrEF with ejection fraction 10 to 15% who presented to the ED on 08/21/2024 from [facility] with altered mental status and generalized weakness. #Goals of care Had on 09/05. is working with her insurance to try and have dialysis to be authorized in [place] via [employer]. Per SS, plan to follow up with dialysis center in a.m. -At this time patient may not require outpatient HD #ESRD, improving --> CKD 4 #New onset hemodialysis post tunneled dialysis catheter, 08/26 #Worsening JADIEL on CKD required CRRT, now ESRD #Lactic acidosis -improved #Hyperkalemia - resolved -creatinine on admission 6.3, GFR 9, lactic acid 5.1, potassium on admission 7.5 -During this ICU admission pt is started on CRRT -Pt underwent permanent tunneled dialysis catheter, per nephrology recs pt will need to undergo HD dialysis 2x per week out patient -nephrology following -Pending insurance authorization for outpatient dialysis at [facility] => accepted in [facility] in [place] however patient unable to secure transport; see GOC above -09/07: Patient had approximate 1200 cc of urine output in past 24 hours; Cr 2.3- 2.4; continue to monitor U output with strict I/Os and renal function. Likely DC tunneled dialysis catheter on Friday 09/08 #Acute blood loss anemia, resolved #Iron deficiency anemia patient required 1 transfusion early in admission; not thought to be a GI bleed but moreso related to ESRD/lack of EPO => improved after Epo Iron panel: Iron 42, TIBC 235, Iron sat 17 and unsat Iron binding 193 FOBT negative Continue home FeSO4 qOD #UTI, resolved #hematuria, resolved #pyuria, resolved -On admission, UA c/w UTI; initial UCx showed no growth => completed 5-day rocephin course; no further symptoms #Cardiogenic shock- resolved #symptomatic bradycardia 2/2 to hyperkalemia #HFrEF (10-15%, improved to 40%) -On admission pt was found to have bradycardia with HR in 40's, atropine x2 was given in the ED -Due to hypotension with BP of 77/55 and MAP <65, pt was started on levophed and dopamine drips, eventually weaned off on 08/24 -Per cardiology-ICD not indicated in patient for following reasons: Patient has NYHA Class IV with drug-refractory CHF, reasonable expectation of survival with an acceptable functional status < 6 months -Per cardiology, patient currently not a candidate for surgical intervention -On discharge, patient will benefit from GDMT optimized with Entresto if blood pressure tolerates. Currently BP is too soft to start GDMT, pt will need to follow up outpatient cardiology -Repeat echo results : Anteroseptal akinesis with moderate LV dysfunction approximate ejection fraction is 40%. Normal RV function normal PA pressure Mild to moderate mitral regurgitation Moderate TR -Cardio following -Started Coreg 3.25mg BID (parameters hold if SBP <100, HR <50, MAP <65) -Will hold off on adding ACEi/ARB due to possible kidney recovery #history of A-fib -Pt has history of a-fib and home meds include metoprolol, amiodarone and eliquis. CHADVASc score 4 and HAS-BLED 3 -NSR -Continue home amiodarone Qday; eliquis 2.5mg BID #insulin dependent Type 2 diabetes, uncontrolled #Hx of osteomylitis s/p bilaterally BKA -A1c 5.7; may be falsely low => repeat with PCP outpatient -Pt home medications include glargine 15 units BID => ordered 5units lantus x1 + SSI -hypoglycemic protocol in place -Pt underwent bilateral BKA due to long standing uncontrolled T2DM #BPH resumed home flomax #Transiminitis - resolved -On admission AST and ALT mildy elevated, T. bili and ALP with in normal range. -Likely secondary to shock, will continue to monitor as shock has now resolved. Health Maintenance Disposition: Pending SNF auth; likely removal of TDC on Friday 09/08 DVT Prophylaxis: eliquis 2.5mg BID GI Prophylaxis: not indicated Diet: renal + glucerna Lines: Peripheral lines Code status: DNR Patient seen and care discussed with my attending Dr. Raman. Jasiel Aggarwal MD PGY-3 Attending Provider Attestation/Addendum I reviewed labs, imaging, EKG, home medications and prior available records. Face to face evaluation was performed by me. I have personally examined the patient and discussed assessment and plan with the IM team. I reviewed the resident note and agree with the plan with exceptions as below. Cardiogenic shock, resolved HFrEF EF 40% Acute kidney injury Hemodialysis status Hyperkalemia, resolved S/p bilateral BKA Uncontrolled diabetes mellitus with hyperglycemia, insulin-dependent Discussed with nephrology: Since the kidney function is stable, he may not need hemodialysis. Keep the patient and monitor kidney function closely. Remove dialysis catheter on Sunday if kidney function remains stable Patient is pending authorization to go back to SNF. If he needs dialysis, he needs to go to [place] as his insurance denied dialysis chair in [place] Discussed with social services manager: Had a meeting with the family. Patient declined hospice which was the other choice. Dose medications based on GFR Continue Coreg. No ACEI/ARBs in the setting of possible kidney recovery in the next few weeks Renal diet upon discharge Started long-acting insulin plus sliding scale. Monitor fingersticks
[2024-09-07] MEDS: INSULIN GLARGINE (Lantus) 5 UNIT/0.05 ML (PER 5 UNITS) SC (14:00)
[2024-09-07] MEDS: TAMSULOSIN HCL 0.4 MG CAPSULE PO (20:41)
[2024-09-08] VITALS (13 sets, daily range): BP systolic 95–124; BP diastolic 56–72; PULSE 56–74; RESP 16–92; TEMP 36.1–36.5; O2SAT 91–99
[2024-09-08] MEDS: ALBUTEROL RT 2.5 MG/0.5 ML NEBU INH ×3 (07:53→23:21)
[2024-09-08] MEDS: carVEDILOL 3.125 MG TABLET PO ×2 (08:47→17:40)
[2024-09-08] MEDS: AMIODARONE HCL 200 MG TABLET PO (08:48)
[2024-09-08] MEDS: CITRIC ACID/SODIUM CITR 15 ML UDC (BICITRA) 30 ML PO ×2 (08:48→20:54)
[2024-09-08] MEDS: Magnesium Sulfate 4 GM Ivpb 4 GM/50 ML BAG IV (08:49)
--- NOTE | 2024-09-08 09:56 | PC.SS ---
SS follow up note; SS contacted [facility] at [phone]. Agent informed SS that it could take up to Seven business day's to obtain authorization. MANDI contacted Romy and she informed SS that auth was submitted on . Romy contacted their billing contact and they informed Romy that Clinicals were in review at the time. SS will stand by for further needs.
[2024-09-08 10:14] LABS: Basophils % (Auto) 0 % (0-2.5); Eosinophils # (Auto) 0.3 Thou/mm3 (0.0-0.5); Eosinophils % (Auto) 4 % (0-10); Hematocrit 30.9 % (41.0-53.0); Hemoglobin 9.7 g/dL (13.5-16.0); Immature Granulocytes % (Auto) 1 % (0-0); Immature Granulocytes Auto 0.04 Thou/mm3 (0.00-0.00); Lymphocytes # (Auto) 1.5 Thou/mm3 (1.0-4.8); Lymphocytes % (Auto) 21 % (10-50); Mean Corpuscular HGB Conc 31.4 g/dl (31.0-37.0); Mean Corpuscular Hemoglobin 27.1 pg (25.0-35.0); Mean Corpuscular Volume 86 fL (80-100); Monocytes # (Auto) 0.5 Thou/mm3 (0.0-0.8); Monocytes % (Auto) 8 % (0-12); Neutrophils # (Auto) 4.7 Thou/mm3 (1.8-7.7); Neutrophils % (Auto) 67 % (37-80); Nucleated Red Blood Cell % 0 /100 WBC (0); Platelet Count 363 Thou/mm3 (140-440); RDW Standard Deviation 63.2 fL (35.1-43.9); Red Blood Count 3.58 Miln/mm3 (4.50-5.90); White Blood Count 7.1 Thou/mm3 (3.8-10.6)
[2024-09-08 10:18] LABS: Prothrombin Time 11.2 Seconds (9.0-12.2)
--- NOTE | 2024-09-08 10:18 | PC.SS ---
was contacted by Sarah Beth from [employer] returning call and she informed that authorization was approved on Sunday, provided [employer] Fax number as well as requested to be faxed to fax number as. Sarah Beth reported she would be working on faxing auth. SS also informed Team A to input discharge orders. SS will stand by for further needs.
[2024-09-08 10:21] LABS: Alanine Aminotransferase 11 U/L (10-49); Albumin, Serum 3.2 gm/dL (3.4-4.8); Albumin/Globulin Ratio 1.1 (1.2-2.2); Alkaline Phosphatase 76 U/L (46-116); Anion Gap 9 (7-16); Aspartate Amino Transferase 24 U/L (0-34); BUN/Creatinine Ratio 15 Ratio (12-20); Bilirubin,Total 0.5 mg/dL (0.3-1.2); Blood Urea Nitrogen 32 mg/dL (9-23); Calcium 8.8 mg/dL (8.3-10.6); Calcium (Corrected) 9.4 mg/dL (8.5-10.1); Carbon Dioxide 28.8 mMol/L (20.0-31.0); Chloride 101 mMol/L (98-107); Creatinine (Component) 2.2 mg/dL (0.6-1.3); Estimated Creatinine Clearance 29.8 mL/min (>60); Globulin 2.9 gm/dL (2.3-3.5); Glucose 139 mg/dL (74-106); Osmolality,Calculated 286 (275-295); Potassium 4.9 mMol/L (3.4-5.1); Sodium 139 mMol/L (136-145); Total Protein 6.1 gm/dL (5.7-8.2); eGFR 32 See Note
--- NOTE | 2024-09-08 11:15 | ESPR_ITS ---
Documentation for date of: 09/08/24 Subjective Subjective Interval history: Patient was seen and examined at the bedside. No acute overnight events were reported. Patient reported to make good urine output around 1.2 L with net -180 cc. Patient reported that he is feeling better and wants to go at SNF. He was frustrated to know about authorization being pending. Vitals were stable. Hemoglobin was stable at 9.7. CHEM panel was unremarkable. Kidney functions slightly improved with BUN 32 and creatinine 2.2. Blood glucose well- controlled. Plan is to hold off on dialysis per nephrology recommendations. Cardiology was consulted who recommended that patient should be continued on Coreg and started on Bumex 0.5 mg once daily as we are planning to stop dialysis as kidney functions and urine output is improving.Patient will be getting tunneled catheter removal tomorrow and pending on SNF authorization. Anticipating discharge tomorrow. Exam Vital Signs Temp Pulse Resp BP Pulse Ox O2 Del Method O2 Flow Rate 97.3 F 67 20 123/70 97 Room Air 2 09/08/24 08:00 09/08/24 08:48 09/08/24 08:00 09/08/24 08:48 09/08/24 08:00 09/08/24 08:00 09/08/24 07:53 Narrative Exam GENERAL: A&Ox3 . awake, elderly male, pleasant to speak with NEURO: CN 2-12 grossly normal but not formally tested; no focal neurological deficits HEENT: Atraumatic, Normocephalic. mucous membranes moist. Eyes open, symmetrical, & clear, tunneled dialysis cath in place, dressing clean and dry. Mild ecchymosis noted on neck, improving HEART: Normal S1, S2; RRR; no MRG appreciated LUNGS: Clear to auscultation with no wheezing or crackles. ABDOMEN: soft, non-distended, non-tender, bowel sounds heard, no guarding or rebound tenderness SKIN: No Rash or ecchymoses EXTREMITIES: bilateral BKA, amputation of the digits 3,4,5 of the right hand Objective Labs 09/09/24 05:00 09/09/24 05:00 Labs: Laboratory Results - last 24 hr 09/08/24 09:23 WBC 7.1 RBC 3.58 L Hgb 9.7 L Hct 30.9 L MCV 86 MCH 27.1 MCHC 31.4 RDW Std Deviation 63.2 H Plt Count 363 D Neut % (Auto) 67 Lymph % (Auto) 21 [place] % (Auto) 8 Eos % (Auto) 4 Baso % (Auto) 0 Neut # (Auto) 4.7 Lymph # (Auto) 1.5 [place] # (Auto) 0.5 Eos # (Auto) 0.3 Baso # (Auto) 0.0 Immature Gran # (Auto) 0.04 H Absolute Nucleated RBC 0.00 Immature Gran % 1 H Nucleated RBC % 0 PT 11.2 INR 1.0 Sodium 139 Potassium 4.9 Chloride 101 Carbon Dioxide 28.8 Anion Gap 9 BUN 32 H Creatinine 2.2 H Estim Creat Clear Calc 29.8 L eGFR 32 L BUN/Creatinine Ratio 15 Glucose 139 H Calculated Osmolality 286 Calcium 8.8 Corrected Calcium 9.4 Total Bilirubin 0.5 AST 24 ALT 11 Alkaline Phosphatase 76 Total Protein 6.1 Albumin 3.2 L Globulin 2.9 Albumin/Globulin Ratio 1.1 L ABG Interpretation ABG results: 08/21/24 08/21/24 08/22/24 20:24 23:24 04:35 ABG pH 7.26 L ABG pCO2 31 L ABG pO2 92 ABG HCO3 14 L ABG O2 Saturation 97 ABG Base Excess -12 L VBG pH 7.32 L 7.22 L VBG pCO2 30 L 35 L VBG pO2 66 H 85 H VBG Base Excess -10 L -12 L 08/24/24 08:40 ABG pH ABG pCO2 ABG pO2 ABG HCO3 ABG O2 Saturation ABG Base Excess VBG pH 7.36 VBG pCO2 31 L VBG pO2 80 H VBG Base Excess -8 L Quality Measures Quality Measures VTE prophylaxis Advance care planning discussed with:: patient Assessment & Plan Assessment Current Active Medications: Generic Name Dose Route Start Last Admin Trade Name Freq PRN Reason Stop Dose Admin Acetaminophen 650 mg 08/21/24 23:37 Acetaminophen 325 Mg Tablet PO 09/20/24 23:36 Q4HR PRN PAIN SCALE 1-3 (mild Acetaminophen 650 mg 08/21/24 23:37 Acetaminophen Supp 650 Mg Supp [place] 09/20/24 23:36 Q4HR PRN PAIN SCALE 1-3 (mild Al Hydrox/Mg Hydrox/Simethicone 30 ml 08/22/24 00:31 Mg Hyd/Al Hyd/Stephy (Maalox Reg) Susp 30 Ml Udc PO 09/20/24 23:36 Q4HR PRN Heartburn or Upset Stomach Albuterol 2.5 mg 08/26/24 15:00 09/08/24 07:53 Albuterol Rt 2.5 Mg/0.5 Ml Nebu INH 09/25/24 14:59 2.5 mg Q8HRRT KENNY Administration Amiodarone HCl 200 mg 08/24/24 15:00 09/08/24 08:48 Amiodarone Hcl 200 Mg Tablet PO 09/23/24 14:59 200 mg QDAY KENNY Administration Apixaban 2.5 mg 09/02/24 21:00 09/07/24 20:41 Apixaban 2.5 Mg Tablet PO 10/02/24 20:59 2.5 mg BID KENNY Administration Aspirin 81 mg 09/03/24 09:00 09/07/24 08:09 Aspirin Ec 81 Mg Tabec PO 10/03/24 08:59 81 mg QDAY KENNY Administration Carvedilol 3.125 mg 08/28/24 17:30 09/08/24 08:47 Carvedilol 3.125 Mg Tablet PO 09/27/24 17:29 3.125 mg BIDWM KENNY Administration Citric Acid/Sodium Citrate 30 ml 09/03/24 21:00 09/08/24 08:48 Citric Acid/Sodium Citr 15 Ml Udc (Bicitra) PO 10/03/24 20:59 30 ml BID KENNY Administration Dextrose 25 ml 08/22/24 04:20 08/22/24 11:43 Dextrose 50%-Water Inj 50 Ml Syringe IV 09/21/24 04:19 25 ml Q15MIN PRN Administration BG 50-70 responsive npo pt Dextrose 50 ml 08/22/24 04:20 Dextrose 50%-Water Inj 50 Ml Syringe IV 09/21/24 04:19 Q15MIN PRN BG <50 OR BG <70 & pt unresponsive Ferrous Sulfate 325 mg 08/24/24 08:30 09/07/24 08:09 Ferrous Sulf 325 Mg Tablet PO 09/23/24 08:29 325 mg QOD KENNY Administration Heparin Sodium (Porcine) 3,500 unit 08/27/24 15:36 09/01/24 11:53 Heparin Sod Inj 1000 Unit/Ml Vial 10 Ml INDWELLCAT 09/10/24 15:35 3,500 unit PRN PRN Administration DIALYSIS Albumin Human 25 gm in 100 mls @ 100 mls/min 08/22/24 05:34 Albuminar-25 Ivpb IV PRN PRN DIALYSIS Magnesium Sulfate 4 gm in 50 mls @ 12.5 mls/hr 09/08/24 08:21 09/08/24 08:49 Magnesium Sulfate Ivpb IV 09/08/24 12:20 12.5 mls/hr X1 ONE Administration Insulin Human Lispro 0 unit 09/08/24 07:45 09/08/24 08:49 Insulin Lispro (Admelog) 1 Unit/0.01 Ml Unit SC 10/08/24 07:44 Not Given Q6HR KENNY Protocol Magnesium Hydroxide 30 ml 08/21/24 23:37 Milk Of Magnesia Susp 30 Ml Udc PO 09/20/24 23:36 QDAY PRN CONSTIPATION Midodrine 5 mg 08/30/24 13:24 Midodrine 5 Mg Tablet PO 09/27/24 21:59 TID PRN SBP < 100 or MAP < 65 Pharmacy Consult 1 each 08/23/24 08:21 Pharmacy To Consult Patient XX 09/22/24 08:20 PRN PRN Starting 24Hr Continuous/Intermittent Dialysis Sodium Chloride 3 ml 08/22/24 14:07 09/07/24 15:01 Sodium Chloride Rt Jing 0.9% 3 Ml Nebu INH 09/21/24 14:06 3 ml PRN PRN Administration SOLN Tamsulosin HCl 0.4 mg 09/02/24 21:00 09/07/24 20:41 Tamsulosin Hcl 0.4 Mg Capsule PO 10/02/24 20:59 0.4 mg HS KENNY Administration Plan Mr. Galdamez is a 64-year-old male with a past medical history of hypertension, hyperlipidemia, CKD stage IIIb, diabetes, bilateral BKA's, A-fib, CAD status post stent, HFrEF with ejection fraction 10 to 15% who presented to the ED on 08/21/2024 from [facility] with altered mental status and generalized weakness. #Goals of care Had on 09/05. is working with her insurance to try and have dialysis to be authorized in [place] via [employer]. Per SS, plan to follow up with dialysis center in a.m. -At this time patient may not require outpatient HD #ESRD, improving --> CKD 4 #Lactic acidosis -improved #Hyperkalemia - resolved -creatinine on admission 6.3, GFR 9, lactic acid 5.1, potassium on admission 7.5 -During this ICU admission pt is started on CRRT -Pt underwent permanent tunneled dialysis catheter, per nephrology recs pt will need to undergo HD dialysis 2x per week out patient -nephrology following -Pending insurance authorization for outpatient dialysis at [facility] => accepted in [facility] in [place] however patient unable to secure transport; see GOC above -09/08: Patient had approximate 1.2 L with net -180 cc. Cr 2.3-2.4; continue to monitor U output with strict I/Os and renal function. ? Patient will be restarted on Bumex 0.5 mg once daily with Coreg per cardiology recommendations ? Likely DC tunneled dialysis catheter on 09/09/2024 ? Holding off Eliquis 2.5 for removal of catheter #Acute blood loss anemia, resolved #Iron deficiency anemia patient required 1 transfusion early in admission; not thought to be a GI bleed but moreso related to ESRD/lack of EPO => improved after Epo Iron panel: Iron 42, TIBC 235, Iron sat 17 and unsat Iron binding 193 FOBT negative Continue home FeSO4 qOD #UTI, resolved #hematuria, resolved #pyuria, resolved -On admission, UA c/w UTI; initial UCx showed no growth => completed 5-day rocephin course; no further symptoms #Cardiogenic shock- resolved #symptomatic bradycardia 2/2 to hyperkalemia #HFrEF (10-15%, improved to 40%) -On admission pt was found to have bradycardia with HR in 40's, atropine x2 was given in the ED -Due to hypotension with BP of 77/55 and MAP <65, pt was started on levophed and dopamine drips, eventually weaned off on 08/24 -Per cardiology-ICD not indicated in patient for following reasons: Patient has NYHA Class IV with drug-refractory CHF, reasonable expectation of survival with an acceptable functional status < 6 months -Per cardiology, patient currently not a candidate for surgical intervention -On discharge, patient will benefit from GDMT optimized with Entresto if blood pressure tolerates. Currently BP is too soft to start GDMT, pt will need to follow up outpatient cardiology -Repeat echo results : Anteroseptal akinesis with moderate LV dysfunction approximate ejection fraction is 40%. Normal RV function normal PA pressure Mild to moderate mitral regurgitation Moderate TR -Cardio following -Recommended to start Bumex 0.5 mg once daily on discharge per cardio recs -Started Coreg 3.25mg BID (parameters hold if SBP <100, HR <50, MAP <65) -Will hold off on adding ACEi/ARB due to possible kidney recovery #history of A-fib -Pt has history of a-fib and home meds include metoprolol, amiodarone and eliquis. CHADVASc score 4 and HAS-BLED 3 -NSR -Continue home amiodarone Qday; eliquis 2.5mg BID upon discharge #insulin dependent Type 2 diabetes, uncontrolled #Hx of osteomylitis s/p bilaterally BKA -A1c 5.7; may be falsely low => repeat with PCP outpatient -Pt home medications include glargine 15 units BID => ordered 5units lantus x1 + SSI -hypoglycemic protocol in place -Pt underwent bilateral BKA due to long standing uncontrolled T2DM #BPH resumed home flomax #Transiminitis - resolved -On admission AST and ALT mildy elevated, T. bili and ALP with in normal range. -Likely secondary to shock, will continue to monitor as shock has now resolved. Health Maintenance Disposition: Pending SNF auth; likely removal of TDC on 09/09/2024 DVT Prophylaxis: Hold eliquis 2.5mg BID for TDC cath removal GI Prophylaxis: not indicated Diet: renal + glucerna Lines: Peripheral lines Code status: DNR Patient was seen and discussed with attending physician, Dr. Danisha Neville MD, PGY 2 Attending Provider Attestation/Addendum I reviewed labs, imaging, EKG, home medications and prior available records. Face to face evaluation was performed by me. I have personally examined the patient and discussed assessment and plan with the IM team. I reviewed the resident note and agree with the plan with exceptions as below. Cardiogenic shock, resolved HFrEF EF 40% Acute kidney injury Hemodialysis status Hyperkalemia, resolved S/p bilateral BKA Uncontrolled diabetes mellitus with hyperglycemia, insulin-dependent Discussed with nephrology: Since the kidney function is stable, okay to remove dialysis line. Discussed with IR: Will wait till 09/09 to remove the catheter Patient is pending authorization to go back to SNF. If he needs dialysis, he needs to go to [place] as his insurance denied dialysis chair in [place] Discussed with child welfare social worker: Had a meeting with the family. Patient declined hospice which was the other choice. Dose medications based on GFR Discussed with cardiology: Start Bumex 0.5 mg daily Continue Coreg. No ACEI/ARBs in the setting of possible kidney recovery in the next few weeks Renal diet upon discharge Started long-acting insulin plus sliding scale. Monitor fingersticks
--- NOTE | 2024-09-08 11:53 | ESPR_ITS ---
Documentation for date of: 09/08/24 Subjective Subjective Interval history: Mr. Galdamez is a 64-year-old male with significant past medical history of hypertension, insulin-dependent diabetes mellitus, CAD s/p PCI, HFrEF [EF 10 to 15%], CKD stage III, bilateral below-knee amputations, atrial fibrillation living in [facility] was brought to the hospital with chief complaints of worsening mentation, shortness of breath and generalized weakness for the past 2 days. Patient was noted to have heart rate dropped to 40s during transit time in the ambulance for which patient was externally paced and 2 doses of atropine was given without response. In the ED, patient was found to have heart rate of 40 with blood pressure of 80/45 mmHg for which cardiology was consulted for suspected AV block. Per budget examiner, there is no concern for AV block and patient was found to have junctional escape rhythm with underlying atrial fibrillation and recommended to start on Levophed and low-dose dopamine. Patient was admitted to ICU for further care. Also noted patient had decreased p.o. intake 2 days before the day of admission and abdominal discomfort. ED Course: -Initial vitals were blood pressure 111/58 mmHg, SpO2 79% with 15 L oxygen -Labs significant for Hb 8.3, potassium 7.5, bicarb 14, anion gap 19, BUN 85, creatinine 6.2, lactate 7. Urine analysis showed 5000 RBC and 2000 WBC. -Head CT was negative for acute hemorrhage and infarct. -Patient was admitted for shock requiring vasopressors Nephrology was consulted for acute on chronic kidney injury. Overnight patient received 2 hours of conventional hemo-dialysis session due to metabolic acidosis and hyperkalemia. Decided to proceed with CRRT as patient currently on pressors. 08/31/2024 patient currently seen in medical floor. Received 2 CRRT sessions and subsequently on conventional dialysis. Last dialysis Sunday. Moved out of ICU. Feeling much better today. 09/08/2024 patient currently seen in medical floor. Resting comfortably. Denies any chest pain, shortness of breath. 5 days with no dialysis. Creatinine stable at 2.4. Will DC dialysis and plan for dialysis catheter removal. Review of Systems Review of Systems Narrative Review of Systems: CONSTITUTIONAL: Patient denies any fever, chills. HEENT: Denies any visual disturbances or hearing problems. CARDIOVASCULAR: Patient denies any chest pain, shortness of breath, swelling in the lower extremities. PULMONARY: Patient denies any shortness of breath, cough. GASTROINTESTINAL: Patient denies any abdominal pain, constipation, nausea, vomiting, diarrhea. GENITOURINARY: Patient denies any urinary symptoms of burning or frequency or hematuria, denies any form in the urine. SKIN: Denies any rash. MUSCULOSKELETAL: Gait imbalance, bilateral BKA NEUROLOGICAL: Denies any neurological problems of strokes, seizures or confusion. Denies any memory problems. PSYCHIATRIC: Denies any depression or anxiety. LYMPHATICS : No lymphadenopathy Exam Vital Signs Temp Pulse Resp BP Pulse Ox O2 Del Method O2 Flow Rate 36.3 C 67 20 123/70 97 Room Air 2 09/08/24 08:00 09/08/24 08:48 09/08/24 08:00 09/08/24 08:48 09/08/24 08:00 09/08/24 08:00 09/08/24 07:53 Narrative Exam GENERAL APPEARANCE: Patient seems to be comfortable, adequately hydrated and nourished. HEENT: EOMI, PERRLA NECK: Neck supple, no JVD or bruit CARDIOVASCULAR: Heart regular, no murmurs LUNGS/CHEST: Chest clear to auscultation. No rales, rhonchi, wheezing ABDOMEN: Soft, nontender, nondistended. No masses. Normal bowel sounds. EXTREMITIES: No edema, clubbing or cyanosis. SKIN: Skin exam normal without any rashes. IJ dialysis catheter MUSCULOSKELETAL: Bilateral BKA NEUROLOGICAL : No neurological deficits Objective Labs 09/09/24 05:00 09/08/24 09:23 Labs: Laboratory Results - last 24 hr 09/08/24 09:23 WBC 7.1 RBC 3.58 L Hgb 9.7 L Hct 30.9 L MCV 86 MCH 27.1 MCHC 31.4 RDW Std Deviation 63.2 H Plt Count 363 D Neut % (Auto) 67 Lymph % (Auto) 21 [place] % (Auto) 8 Eos % (Auto) 4 Baso % (Auto) 0 Neut # (Auto) 4.7 Lymph # (Auto) 1.5 [place] # (Auto) 0.5 Eos # (Auto) 0.3 Baso # (Auto) 0.0 Immature Gran # (Auto) 0.04 H Absolute Nucleated RBC 0.00 Immature Gran % 1 H Nucleated RBC % 0 PT 11.2 INR 1.0 Sodium 139 Potassium 4.9 Chloride 101 Carbon Dioxide 28.8 Anion Gap 9 BUN 32 H Creatinine 2.2 H Estim Creat Clear Calc 29.8 L eGFR 32 L BUN/Creatinine Ratio 15 Glucose 139 H Calculated Osmolality 286 Calcium 8.8 Corrected Calcium 9.4 Total Bilirubin 0.5 AST 24 ALT 11 Alkaline Phosphatase 76 Total Protein 6.1 Albumin 3.2 L Globulin 2.9 Albumin/Globulin Ratio 1.1 L ABG Interpretation ABG results: 08/21/24 08/21/24 08/22/24 20:24 23:24 04:35 ABG pH 7.26 L ABG pCO2 31 L ABG pO2 92 ABG HCO3 14 L ABG O2 Saturation 97 ABG Base Excess -12 L VBG pH 7.32 L 7.22 L VBG pCO2 30 L 35 L VBG pO2 66 H 85 H VBG Base Excess -10 L -12 L 08/24/24 08:40 ABG pH ABG pCO2 ABG pO2 ABG HCO3 ABG O2 Saturation ABG Base Excess VBG pH 7.36 VBG pCO2 31 L VBG pO2 80 H VBG Base Excess -8 L Assessment & Plan Additional Assessment & Plan Additional Plan: 64-year-old male with significant past medical history of hypertension, insulin-dependent diabetes mellitus, CAD s/p PCI, HFrEF [EF 10 to 15%], CKD stage III, bilateral below-knee amputations, atrial fibrillation living in [facility] facility was brought to the hospital with chief complaints of worsening mentation, shortness of breath and generalized weakness for the past 2 days. # Acute on chronic kidney disease, stage IIIb Likely prerenal versus ATN in the setting of shock -Patient presented to the hospital with the complaints of shortness of breath worsening mentation and per patient's patient had abdominal pain and foul- smelling urine. -Baseline creatinine as of 07/2024 is 2.4 -On the day of admission, 08/21/2024, creatinine is 6.3 -Urine analysis showed turbid urine with 2+ proteinuria, 3+ blood, 5180 RBC, 1928 WBC Plan -Patient got CRRT on 08/22 , 08/23 --subsequently on intermittent hemodialysis. Status post PermCath. Suspect patient in ATN -Monitor renal functions and avoid nephrotoxic medications -Continue antibiotics Patient seems to have renal recovery. No need for dialysis. DC dialysis and dialysis catheter. #Chronic right parietal stroke #Complicated UTI #Chronic anemia #IDDM #Elevated LFT's Per primary team Quality - progress note Quality Measures Quality Measures: VTE prophylaxis Reason for Continued Stay Reason for Continued Stay: further monitoring Procedures Arterial Line Size (Gauge): 18
[2024-09-08] MEDS: INSULIN LISPRO (AdmeLOG) 1 UNIT/0.01 ML UNIT SC ×2 (17:41→21:00)
[2024-09-08] MEDS: TAMSULOSIN HCL 0.4 MG CAPSULE PO (20:54)
[2024-09-08] MEDS: SODIUM CHLORIDE RT SOL 0.9% 3 ML NEBU INH (23:21)
[2024-09-09] VITALS (11 sets, daily range): BP systolic 108–128; BP diastolic 63–78; PULSE 57–63; RESP 14–92; TEMP 36–36.3; O2SAT 90–99
[2024-09-09 06:11] LABS: Basophils % (Auto) 0 % (0-2.5); Eosinophils # (Auto) 0.2 Thou/mm3 (0.0-0.5); Eosinophils % (Auto) 3 % (0-10); Hematocrit 28.2 % (41.0-53.0); Hemoglobin 8.9 g/dL (13.5-16.0); Immature Granulocytes % (Auto) 0 % (0-0); Immature Granulocytes Auto 0.03 Thou/mm3 (0.00-0.00); Lymphocytes # (Auto) 1.9 Thou/mm3 (1.0-4.8); Lymphocytes % (Auto) 25 % (10-50); Mean Corpuscular HGB Conc 31.6 g/dl (31.0-37.0); Mean Corpuscular Hemoglobin 27.1 pg (25.0-35.0); Mean Corpuscular Volume 86 fL (80-100); Monocytes # (Auto) 0.6 Thou/mm3 (0.0-0.8); Monocytes % (Auto) 8 % (0-12); Neutrophils # (Auto) 4.8 Thou/mm3 (1.8-7.7); Neutrophils % (Auto) 63 % (37-80); Nucleated Red Blood Cell % 0 /100 WBC (0); Platelet Count 372 Thou/mm3 (140-440); RDW Standard Deviation 61.5 fL (35.1-43.9); Red Blood Count 3.28 Miln/mm3 (4.50-5.90); White Blood Count 7.6 Thou/mm3 (3.8-10.6)
[2024-09-09 06:28] LABS: Partial Thromboplastin Time 31.4 Seconds (22.0-36.0); Prothrombin Time 11.3 Seconds (9.0-12.2)
[2024-09-09] MEDS: ALBUTEROL RT 2.5 MG/0.5 ML NEBU INH ×2 (06:55→15:32)
--- NOTE | 2024-09-09 07:00 | XR_ITS ---
Examination: Venous access removal permanent tunneled dialysis catheter AP chest 2 views Fluoroscopy Exam date and time: September 09, 2024 1208 hours INDICATIONS: No longer needed for dialysis TECHNIQUE AND FINDINGS: Informed consent provided. Timeout performed. Skin prepped over the entrance site of the permanent tunneled dialysis catheter, sterile drape applied hand hygiene 1% lidocaine administered for local anesthesia Careful dissection around the permanent tunneled dialysis catheter was successful removal Estimated blood loss 2 cc Patient instable condition at completion procedure Fluoroscopy 0.1 minute radiation dose 0.42 milligray 2 spot fluoroscopic chest films Chest completion procedure no longer demonstrates the dialysis catheter IMPRESSION: Successful venous access removal permanent tunneled right internal jugular dialysis catheter
[2024-09-09 07:04] LABS: Albumin, Serum 3.1 gm/dL (3.4-4.8); Albumin/Globulin Ratio 1.2 (1.2-2.2); Alkaline Phosphatase 77 U/L (46-116); Anion Gap 7 (7-16); Aspartate Amino Transferase 15 U/L (0-34); BUN/Creatinine Ratio 15 Ratio (12-20); Bilirubin,Total 0.4 mg/dL (0.3-1.2); Blood Urea Nitrogen 35 mg/dL (9-23); Calcium 7.9 mg/dL (8.3-10.6); Calcium (Corrected) 8.6 mg/dL (8.5-10.1); Carbon Dioxide 29.8 mMol/L (20.0-31.0); Chloride 102 mMol/L (98-107); Creatinine (Component) 2.4 mg/dL (0.6-1.3); Estimated Creatinine Clearance 27.3 mL/min (>60); Globulin 2.6 gm/dL (2.3-3.5); Glucose 189 mg/dL (74-106); Magnesium 2.6 mg/dL (1.6-2.6); Osmolality,Calculated 290 (275-295); Phosphorous 3.5 mg/dL (2.4-5.1); Potassium 4.8 mMol/L (3.4-5.1); Sodium 139 mMol/L (136-145); Total Protein 5.7 gm/dL (5.7-8.2); eGFR 29 See Note
[2024-09-09 07:05] LABS: Alanine Aminotransferase 9 U/L (10-49)
[2024-09-09] MEDS: carVEDILOL 3.125 MG TABLET PO ×2 (07:58→16:30)
[2024-09-09] MEDS: CITRIC ACID/SODIUM CITR 15 ML UDC (BICITRA) 30 ML PO (08:00)
[2024-09-09] MEDS: AMIODARONE HCL 200 MG TABLET PO (08:00)
[2024-09-09] MEDS: FERROUS SULF 325 MG TABLET PO (08:01)
--- NOTE | 2024-09-09 09:13 | PC.SS ---
SS follow up note; SS contacted Sarah Beth from [facility] in regards to patients auth, she reported that auth was sent to [facility] yesterday, Romy reported they did not receive it, Sarah Beth informed SS she would follow up with the auth coordinator to resend it. SS will stand by for further needs.
--- NOTE | 2024-09-09 14:17 | PC.SS ---
SS set up transportation with [facility] for 1930. SS contacted patient's , Shreya as well as patient's nurse Leena. SS updated Romy from [facility].
--- NOTE | 2024-09-09 15:02 | PC.SS ---
SS was contacted by patient's nurse Queenie and she informed SS that patient has not had a bowl movement. SS informed mail processing clerk Wendy if patient is unable to have bowl movement before 7:30 He will contact [facility] to cancel transportation. SS will stand by for further needs.
[2024-09-09] MEDS: LACTULOSE SYRUP 20 GM/30 ML UDC 30 GM PO (15:29)
[2024-09-09] MEDS: SENNOSIDES SYRUP 8.8 MG/5 ML UDC PO (15:39)
[2024-09-09] MEDS: INSULIN LISPRO (AdmeLOG) 1 UNIT/0.01 ML UNIT SC (16:46)
--- NOTE | 2024-09-09 16:57 | PD.RESDS ---
Planned Discharge Date 09/09/24 DS: Providers Provider Date of admission: 08/22/24 03:11 Primary care physician: Jalil Le MD Admitting Provider: Nia López MD Attending Provider on Admission: Tristan Raman MD Consults: 08/21/24 23:10 Consult to Nephrology Stat Comment: Consulting Provider: Andry Fonseca 08/24/24 10:14 Referral Nutritional Services Stat Comment: 08/24/24 11:22 Consult to Cardiology Routine Comment: Consulting Provider: Janee Velazquez 08/27/24 03:09 Referral Gabriel Routine Comment: 08/29/24 04:47 Referral Wound Care Routine Comment: PARTIAL THICKNESS WOUND TO COCCYX, NOT POA 09/04/24 15:32 Referral Nutritional Services Routine Comment: Instructions: Deep tissue injury progressed to stage 3 POA Referral Wound Care Routine Comment: Instructions: DTI progressed to stage 3 POA Attending Provider on DC: Atul Gates MD Discharging Provider: Atul Gates MD DS: Diagnosis Problem List Completed Was Problem List Reviewed/Reconciled?: Yes Hospital Course Hospital Course Hospital course: 64-year-old male patient with significant past medical history of hypertension, diabetes mellitus, hyperlipidemia, CKD stage IIIb, HFrEF, history of CAD s/p PCI, history of cardiac arrest s/p ROSC, bilateral BKA, A-fib was brought to the hospital from SNF with the complaints of altered mentation, shortness of breath and generalized weakness and admitted in the hospital for septic shock secondary to UTI and acute on chronic kidney disease Patient is initially admitted in the ICU as patient is hemodynamically unstable and started on vasopressors. Treated with antibiotics and received 1 unit PRBC during ICU stay. Patient received 2 sessions of CRRT in view of acute on chronic kidney disease in the ICU. Later patient was downgraded to floors for further management and received 4 hemodialysis sessions later. Tunneled dialysis catheter was placed as initially thought patient needs to be on hemodialysis for short-term but later patient's urine output improved and the renal functions remained stable [creatinine 2.2-2.4, EGFR 28-31] following which tunneled dialysis catheter was removed and patient is being discharged to SNF. Echo done during the hospital stay showed improvement of ejection fraction to 40% from 10 to 15% in 2024, mild to moderate mitral regurgitation and moderate TR Patient discharged to SNF for the following medications and recommendations Take Bumex 0.5 mg as you have been taken off from dialysis per cardio recs Take coreg 3.125 mg BID for HFmEF 40% Holding off Scott/Arb due to Slow improvement in JADIEL Hold off BP meds and diuretics if SBP<100 If SBP Drops below 100, can take midodrine 5 mg TID as needed F/U with BMP within a week Take Insulin S/S as your blood sugars were well controlled 140-180 mg/dl Take all home medications as prescribed F/U with PCP as outpatient with 2 weeks In case of emergency call 911 or come back to the ED Pt will be discharged to [facility] #ESRD, improving --> CKD 4 #Lactic acidosis -improved #Hyperkalemia - resolved #Acute blood loss anemia, resolved #Iron deficiency anemia #UTI, resolved #hematuria, resolved #pyuria, resolved #Cardiogenic shock- resolved #symptomatic bradycardia 2/2 to hyperkalemia #HFrEF (10-15%, improved to 40%) #history of A-fib #insulin dependent Type 2 diabetes, uncontrolled #Hx of osteomylitis s/p bilaterally BKA #BPH #Transiminitis - resolved Patient plan of care was discussed with the attending physician, Dr. Raman and senior resident Dr. Natalie Gates, PGY1 Time Spent with Patient Time attestation: Total time spent providing and/or coordinating discharge services: Time spent: Greater than 30 minutes Exam Vital Signs Temp Pulse Resp BP Pulse Ox O2 Del Method O2 Flow Rate 97.2 F 62 17 117/77 90 L Room Air 2 09/09/24 16:00 09/09/24 16:30 09/09/24 16:00 09/09/24 16:30 09/09/24 16:00 09/09/24 16:00 09/09/24 08:00 Narrative Exam General: Awake. Lying comfortably on the bed HEENT: Normocephalic, atraumatic, mucous membranes moist. Heart: Regular rate and rhythm, no murmurs. Lungs: Clear to auscultation with no wheezing or crackles. Right tunneled dialysis catheter Abdomen: Soft, nondistended, nontender, positive bowel sounds. ?No guarding or rebound tenderness. Neurologic: Alert and oriented x3, no gross neurological deficit, and patient able to move all 4 extremities. Extremities: No edema. 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 B/L BKA Skin: No rash or ecchymoses. Discharge Plan Plan Patient Disposition: Xfer Skilled Nsg Fac ([facility]) Patient condition on transfer: Stable Care Plan Goals: Take Bumex 0.5 mg as you have been taken off from dialysis per cardio recs Take coreg 3.125 mg BID for HFmEF 40% Holding off Scott/Arb due to Slow improvement in JADIEL Hold off BP meds and diuretics if SBP<100 If SBP Drops below 100, can take midodrine 5 mg TID as needed F/U with BMP within a week Take Insulin S/S as your blood sugars were well controlled 140-180 mg/dl Take all home medications as prescribed F/U with PCP as outpatient with 2 weeks In case of emergency call 911 or come back to the ED Pt will be discharged to [facility] Prescriptions/Referrals Prescriptions/Med Rec: New amiodarone 200 mg Tablet 200 mg PO QDAY Qty: 90 0RF carvedilol 3.125 mg Tablet 3.125 mg PO BIDWM Qty: 90 0RF sodium citrate-citric acid 500-334 mg/5 mL Solution 30 ml PO BID Qty: 1200 0RF tamsulosin 0.4 mg Capsule 0.4 mg PO HS Qty: 60 0RF midodrine 5 mg Tablet 5 mg PO TID PRN (Reason: SBP < 100 or MAP < 65) Qty: 30 0RF alum-mag hydroxide-simeth [Mag-Al Plus] 200-200-20 mg/5 mL Suspension 30 ml PO Q4HR PRN (Reason: Heartburn or Upset Stomach) Qty: 3000 0RF bumetanide 0.5 mg tablet 0.5 mg PO QDAY Qty: 90 0RF Continued aspirin 81 mg Tablet,Delayed Release (Dr/Ec) 81 mg PO QDAY gabapentin 300 mg Capsule 300 mg PO QDAY Eliquis 2.5 mg tablet 2.5 mg PO BID ferrous sulfate [FeroSul] 325 mg (65 mg iron) tablet 325 mg PO Q OTHER DAY hydrocodone-acetaminophen 5-325 mg tablet 1 tab PO Q6H PRN (Reason: pain) Patient Comments: PLEASE SEE ATTACHED FOR DETAILED DIRECTIONS Rx Instructions: MODERATE TO SEVERE PAIN ascorbic acid (vitamin C) [Vitamin C] 500 mg tablet 500 mg PO BID Rx Instructions: END DATE 09/22/24 multivitamin [Daily Multi-Vitamin] Tablet 1 tab PO QDAY famotidine 20 mg tablet 20 mg PO BID PRN (Reason: acid reflux) Qty: 60 0RF mirtazapine 15 mg tablet 30 mg PO QDAY Qty: 60 0RF bisacodyl [Dulcolax (bisacodyl)] 10 mg suppository 10 mg [place] QDAY PRN (Reason: constipation) Rx Instructions: IF MOM IS INEFFECTIVE AND NO BM FOR 8 HRS acetaminophen 650 mg/20.3 mL suspension 650 mg PO Q6H PRN (Reason: fever or pain) Rx Instructions: MILD PAIN; FEVER > 101.5. NOT TO EXCEED 3 GRAMS IN 24HOURS insulin lispro [Admelog SoloStar U-100 Insulin] 100 unit/mL insulin pen 1 sliding scale dose subcut USEASDIRECTD Rx Instructions: subcutaneously use as directed; sodium phosphates 19-7 gram/118 mL enema 118 ml [place] QDAY PRN (Reason: constipation) Rx Instructions: IF MOM AND DULOLAX SUPP ARE INEFFECTVE AND NO BM FOR 8 HRS. Discontinued metformin 1,000 mg tablet 500 mg PO BID tamsulosin [Flomax] 0.4 mg Capsule 0.4 mg PO DAILY amiodarone 200 mg tablet 200 mg PO BID Patient Comments: TAKE 1 TABLET BY MOUTH TWICE A DAY FOR 30 DAYS bumetanide 1 mg tablet 2 mg PO QDAY Patient Comments: HOLD SBP < 100 OR DBP < 60 metoprolol succinate 25 mg tablet extended release 24 hr 12.5 mg PO DAILY Patient Comments: TAKE HALF TABLET ORALLY DAILY FOR HTN HOLD FOR SBP <100 OR HR <60 insulin degludec 100 unit/mL solution 20 unit subcut .QHS Rx Instructions: HOLD IF BS <100 Referrals: Jalil Le MD [Primary Care Provider] - Patient/Caregiver Discharge Instructions Other Discharge Activity Instructions:: Take Bumex 0.5 mg as you have been taken off from dialysis per cardio recs Take coreg 3.125 mg BID for HFmEF 40% Holding off Scott/Arb due to Slow improvement in JADIEL Hold off BP meds and diuretics if SBP<100 If SBP Drops below 100, can take midodrine 5 mg TID as needed F/U with BMP within a week Take Insulin S/S as your blood sugars were well controlled 140-180 mg/dl Take all home medications as prescribed F/U with PCP as outpatient with 2 weeks In case of emergency call 911 or come back to the ED Pt will be discharged to [facility] wound care: Coccyx stage 3: cleanse with wound cleanser, pat dry, apply thera-honey gel and cover with allyven dressing daily and PRN for falling off or soiling. side to side repositioning except meals Education Materials: Diabetes: Caring for Your Body, Diabetes: Meal Planning Print Language: Sami Stand Alone Forms: [employer] Award Info., Patient Portal Info Letter Discharge Order Discharge Orders: Discharge (Routine); Ordered 09/09/24 Ordered By: Kostas Estrada Quality Discharge Quality Measures VTE prophylaxis Attestestation MD Attestation I reviewed labs, imaging, EKG, home medications and prior available records. Face to face evaluation was performed by me. I have personally examined the patient and discussed assessment and plan with the IM team. I reviewed the resident note and agree with the plan with exceptions as below. Cardiogenic shock, resolved HFrEF EF 40% Acute kidney injury Hemodialysis status Hyperkalemia, resolved S/p bilateral BKA Uncontrolled diabetes mellitus with hyperglycemia, insulin-dependent Discussed with nephrology: Since the kidney function is stable, okay to remove dialysis line. Discussed with IR: Will wait till 09/09 to remove the catheter Patient is pending authorization to go back to SNF. If he needs dialysis, he needs to go to [place] as his insurance denied dialysis chair in [place] Discussed with certified social workers in health care: Had a meeting with the family. Patient declined hospice which was the other choice. Dose medications based on GFR Discussed with cardiology: Start Bumex 0.5 mg daily Continue Coreg. No ACEI/ARBs in the setting of possible kidney recovery in the next few weeks Renal diet upon discharge Started long-acting insulin plus sliding scale. Monitor fingersticks Time spent is 40 minutes. More than 50% of the time was spent on patient education and coordination of care.
--- NOTE | 2024-09-09 17:12 | ESPR_ITS ---
Documentation for date of: 09/09/24 Subjective Subjective Interval history: Mr. Galdamez is a 64-year-old male with significant past medical history of hypertension, insulin-dependent diabetes mellitus, CAD s/p PCI, HFrEF [EF 10 to 15%], CKD stage III, bilateral below-knee amputations, atrial fibrillation living in residential facility was brought to the hospital with chief complaints of worsening mentation, shortness of breath and generalized weakness for the past 2 days. Patient was noted to have heart rate dropped to 40s during transit time in the ambulance for which patient was externally paced and 2 doses of atropine was given without response. In the ED, patient was found to have heart rate of 40 with blood pressure of 80/45 mmHg for which cardiology was consulted for suspected AV block. Per certified registered dental assistant, there is no concern for AV block and patient was found to have junctional escape rhythm with underlying atrial fibrillation and recommended to start on Levophed and low-dose dopamine. Patient was admitted to ICU for further care. Also noted patient had decreased p.o. intake 2 days before the day of admission and abdominal discomfort. ED Course: -Initial vitals were blood pressure 111/58 mmHg, SpO2 79% with 15 L oxygen -Labs significant for Hb 8.3, potassium 7.5, bicarb 14, anion gap 19, BUN 85, creatinine 6.2, lactate 7. Urine analysis showed 5000 RBC and 2000 WBC. -Head CT was negative for acute hemorrhage and infarct. -Patient was admitted for shock requiring vasopressors Nephrology was consulted for acute on chronic kidney injury. Overnight patient received 2 hours of conventional hemo-dialysis session due to metabolic acidosis and hyperkalemia. Decided to proceed with CRRT as patient currently on pressors. 08/31/2024 patient currently seen in medical floor. Received 2 CRRT sessions and subsequently on conventional dialysis. Last dialysis Sunday. Moved out of ICU. Feeling much better today. 09/08/2024 patient currently seen in medical floor. Resting comfortably. Denies any chest pain, shortness of breath. 5 days with no dialysis. Creatinine stable at 2.4. Will DC dialysis and plan for dialysis catheter removal. 09/09/2024. Seen at bedside. Appears comfortable. Denies new symptoms or worsening of symptoms. Renal function continues to improve. Creatinine steadily around 2.2?2.4. Stable to discharge from nephrology perspective, to follow-up closely outpatient within 1-2 weeks. DC dialysis catheter prior to discharge. Exam Vital Signs Temp Pulse Resp BP Pulse Ox O2 Del Method O2 Flow Rate 97.2 F 62 17 117/77 90 L Room Air 2 09/09/24 16:00 09/09/24 16:30 09/09/24 16:00 09/09/24 16:30 09/09/24 16:00 09/09/24 16:00 09/09/24 08:00 Narrative Exam GENERAL APPEARANCE: Patient seems to be comfortable, adequately hydrated and nourished. HEENT: EOMI, PERRLA NECK: Neck supple, no JVD or bruit CARDIOVASCULAR: Heart regular, no murmurs LUNGS/CHEST: Chest clear to auscultation. No rales, rhonchi, wheezing ABDOMEN: Soft, nontender, nondistended. No masses. Normal bowel sounds. EXTREMITIES: No edema, clubbing or cyanosis. SKIN: Skin exam normal without any rashes. IJ dialysis catheter MUSCULOSKELETAL: Bilateral BKA NEUROLOGICAL : No neurological deficits Objective Labs 09/09/24 05:00 09/09/24 05:00 Labs: Laboratory Results - last 24 hr 09/09/24 05:00 WBC 7.6 RBC 3.28 L Hgb 8.9 L Hct 28.2 L MCV 86 MCH 27.1 MCHC 31.6 RDW Std Deviation 61.5 H Plt Count 372 Neut % (Auto) 63 Lymph % (Auto) 25 Dickson % (Auto) 8 Eos % (Auto) 3 Baso % (Auto) 0 Neut # (Auto) 4.8 Lymph # (Auto) 1.9 Dickson # (Auto) 0.6 Eos # (Auto) 0.2 Baso # (Auto) 0.0 Immature Gran # (Auto) 0.03 H Absolute Nucleated RBC 0.00 Immature Gran % 0 Nucleated RBC % 0 PT 11.3 INR 1.0 APTT 31.4 Sodium 139 Potassium 4.8 Chloride 102 Carbon Dioxide 29.8 Anion Gap 7 BUN 35 H Creatinine 2.4 H Estim Creat Clear Calc 27.3 L eGFR 29 L BUN/Creatinine Ratio 15 Glucose 189 H D Calculated Osmolality 290 Calcium 7.9 L Corrected Calcium 8.6 Phosphorus 3.5 Magnesium 2.6 Total Bilirubin 0.4 AST 15 ALT 9 L Alkaline Phosphatase 77 Total Protein 5.7 Albumin 3.1 L Globulin 2.6 Albumin/Globulin Ratio 1.2 ABG Interpretation ABG results: 08/21/24 08/21/24 08/22/24 20:24 23:24 04:35 ABG pH 7.26 L ABG pCO2 31 L ABG pO2 92 ABG HCO3 14 L ABG O2 Saturation 97 ABG Base Excess -12 L VBG pH 7.32 L 7.22 L VBG pCO2 30 L 35 L VBG pO2 66 H 85 H VBG Base Excess -10 L -12 L 08/24/24 08:40 ABG pH ABG pCO2 ABG pO2 ABG HCO3 ABG O2 Saturation ABG Base Excess VBG pH 7.36 VBG pCO2 31 L VBG pO2 80 H VBG Base Excess -8 L Quality Measures Quality Measures VTE prophylaxis Advance care planning discussed with:: patient Assessment & Plan Assessment Current Active Medications: Generic Name Dose Route Start Last Admin Trade Name Freq PRN Reason Stop Dose Admin Acetaminophen 650 mg 08/21/24 23:37 Acetaminophen 325 Mg Tablet PO 09/20/24 23:36 Q4HR PRN PAIN SCALE 1-3 (mild Acetaminophen 650 mg 08/21/24 23:37 Acetaminophen Supp 650 Mg Supp MI 09/20/24 23:36 Q4HR PRN PAIN SCALE 1-3 (mild Al Hydrox/Mg Hydrox/Simethicone 30 ml 08/22/24 00:31 Mg Hyd/Al Hyd/Stephy (Maalox Reg) Susp 30 Ml Udc PO 09/20/24 23:36 Q4HR PRN Heartburn or Upset Stomach Albuterol 2.5 mg 08/26/24 15:00 09/09/24 15:32 Albuterol Rt 2.5 Mg/0.5 Ml Nebu INH 09/25/24 14:59 2.5 mg Q8HRRT KENNY Administration Amiodarone HCl 200 mg 08/24/24 15:00 09/09/24 08:00 Amiodarone Hcl 200 Mg Tablet PO 09/23/24 14:59 200 mg QDAY KENNY Administration Apixaban 2.5 mg 09/02/24 21:00 09/07/24 20:41 Apixaban 2.5 Mg Tablet PO 10/02/24 20:59 2.5 mg BID KENNY Administration Aspirin 81 mg 09/03/24 09:00 09/07/24 08:09 Aspirin Ec 81 Mg Tabec PO 10/03/24 08:59 81 mg QDAY KENNY Administration Carvedilol 3.125 mg 08/28/24 17:30 09/09/24 16:30 Carvedilol 3.125 Mg Tablet PO 09/27/24 17:29 3.125 mg BIDWM KENNY Administration Citric Acid/Sodium Citrate 30 ml 09/03/24 21:00 09/09/24 08:00 Citric Acid/Sodium Citr 15 Ml Udc (Bicitra) PO 10/03/24 20:59 30 ml BID KENNY Administration Dextrose 25 ml 08/22/24 04:20 08/22/24 11:43 Dextrose 50%-Water Inj 50 Ml Syringe IV 09/21/24 04:19 25 ml Q15MIN PRN Administration BG 50-70 responsive npo pt Dextrose 50 ml 08/22/24 04:20 Dextrose 50%-Water Inj 50 Ml Syringe IV 09/21/24 04:19 Q15MIN PRN BG <50 OR BG <70 & pt unresponsive Ferrous Sulfate 325 mg 08/24/24 08:30 09/09/24 08:01 Ferrous Sulf 325 Mg Tablet PO 09/23/24 08:29 325 mg QOD KENNY Administration Heparin Sodium (Porcine) 3,500 unit 08/27/24 15:36 09/01/24 11:53 Heparin Sod Inj 1000 Unit/Ml Vial 10 Ml INDWELLCAT 09/10/24 15:35 3,500 unit PRN PRN Administration DIALYSIS Albumin Human 25 gm in 100 mls @ 100 mls/min 08/22/24 05:34 Albuminar-25 Ivpb IV PRN PRN DIALYSIS Insulin Glargine 6 unit 09/09/24 21:00 Insulin Glargine (Lantus) 5 Unit/0.05 Ml (Per 5 Units) SC 10/09/24 20:59 HS KENNY Insulin Human Lispro 0 unit 09/09/24 16:30 09/09/24 16:46 Insulin Lispro (Admelog) 1 Unit/0.01 Ml Unit SC 10/09/24 16:29 2 unit ACHS KENNY Administration Protocol Magnesium Hydroxide 30 ml 08/21/24 23:37 Milk Of Magnesia Susp 30 Ml Udc PO 09/20/24 23:36 QDAY PRN CONSTIPATION Midodrine 5 mg 08/30/24 13:24 Midodrine 5 Mg Tablet PO 09/27/24 21:59 TID PRN SBP < 100 or MAP < 65 Pharmacy Consult 1 each 08/23/24 08:21 Pharmacy To Consult Patient XX 09/22/24 08:20 PRN PRN Starting 24Hr Continuous/Intermittent Dialysis Sodium Chloride 3 ml 08/22/24 14:07 09/08/24 23:21 Sodium Chloride Rt Jing 0.9% 3 Ml Nebu INH 09/21/24 14:06 3 ml PRN PRN Administration SOLN Tamsulosin HCl 0.4 mg 09/02/24 21:00 09/08/24 20:54 Tamsulosin Hcl 0.4 Mg Capsule PO 10/02/24 20:59 0.4 mg HS KENNY Administration Plan 64-year-old male with significant past medical history of hypertension, insulin- dependent diabetes mellitus, CAD s/p PCI, HFrEF [EF 10 to 15%], CKD stage III, bilateral below-knee amputations, atrial fibrillation living in residential facility was brought to the hospital with chief complaints of worsening mentation, shortness of breath and generalized weakness for the past 2 days. Overall renal function appears to be at baseline. Okay to discharge home from nephrology perspective. To follow-up outpatient within 1-2 weeks following discharge. Acute on chronic kidney disease, stage IIIb Likely prerenal versus ATN in the setting of shock. Presented with SOB and worsening mentation, reported abdominal pain and foul- smelling urine per at bedside. Admission creatinine 6.3, improved with management, currently creatinine 2.4 at baseline. Initial UA was turbid with 2+ proteinuria, 3+ blood, RBC 5180, WBC 1928. Received CRRT on 08/22 and 08/23, followed by intermittent hemodialysis. S/p PermCath. ? May discharge from nephrology perspective. ? Will follow-up outpatient within 1-2 weeks. ? Renally dose meds, avoid overdiuresis and NEPHROTOXINS ? Daily CMP Chronic right parietal stroke Complicated UTI Chronic anemia IDDM Elevated LFT's Per primary team Appreciate the opportunity to participate in the care of this patient. Patient case was discussed with attending, Dr. Fonseca. Angelica Stanton, PGYI Attending Provider Attestation/Addendum Patient seen and examined with resident physician Dr. Dominguez.. Note reviewed, agree with findings and recommendations. Creatinine improved to 2.2. Patient continues to make urine. ATN seems to be recovering. Hold off on dialysis. Will remove dialysis catheter.
--- NOTE | 2024-09-10 08:10 | PC.IP ---
At 0740, notified Alejandra López RN [facility] and John Kendall Charge Nurse to place pt. 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 Both verbalized understanding for the need of placing pt. on Contact Precautions
== END 2024-09-09 19:42 | disposition skilled nursing facility (03) | DRG 871 ==
LOC: SERX 21:13 → SERHOLD 08-22 03:16 → S2SX 08-22 04:08 → S2NX 08-26 08:58 → S2SX 09-02 08:37 → S3SX 09-02 08:37
PROVIDERS: Internal Medicine; Student in an Organized Health Care Education/Training Program; Admitting Provider Internal Medicine; Emergency Provider Emergency Medicine; PCP Family Medicine; Visit Provider Student in an Organized Health Care Education/Training Program
DX: A41.81 Sepsis due to Enterococcus (principal); G93.41 Metabolic encephalopathy; J96.01 Acute respiratory failure with hypoxia; R57.0 Cardiogenic shock; N17.0 Acute kidney failure with tubular necrosis; N18.6 End stage renal disease; R65.21 Severe sepsis with septic shock; N39.0 Urinary tract infection, site not specified; E46 Unspecified protein-calorie malnutrition; E87.20 Acidosis, unspecified; D62 Acute posthemorrhagic anemia; I13.2 Hypertensive heart and chronic kidney disease with heart failure and with stage 5 chronic kidney disease, or end stage renal disease; I50.22 Chronic systolic (congestive) heart failure; Z16.21 Resistance to vancomycin; I49.2 Junctional premature depolarization; D50.9 Iron deficiency anemia, unspecified; R00.1 Bradycardia, unspecified; D63.1 Anemia in chronic kidney disease; E11.22 Type 2 diabetes mellitus with diabetic chronic kidney disease; E11.42 Type 2 diabetes mellitus with diabetic polyneuropathy; E11.51 Type 2 diabetes mellitus with diabetic peripheral angiopathy without gangrene; E78.5 Hyperlipidemia, unspecified; E83.39 Other disorders of phosphorus metabolism; E86.0 Dehydration; I95.3 Hypotension of hemodialysis; E86.1 Hypovolemia; E87.5 Hyperkalemia; E87.6 Hypokalemia; I48.0 Paroxysmal atrial fibrillation; I25.10 Atherosclerotic heart disease of native coronary artery without angina pectoris; I25.5 Ischemic cardiomyopathy; N40.0 Benign prostatic hyperplasia without lower urinary tract symptoms; Z79.4 Long term (current) use of insulin; Z79.01 Long term (current) use of anticoagulants; Z79.899 Other long term (current) drug therapy; Z95.5 Presence of coronary angioplasty implant and graft; Z66 Do not resuscitate; S70.10XA Contusion of unspecified thigh, initial encounter; T73.0XXA Starvation, initial encounter; Z78.9 Other specified health status; Z99.2 Dependence on renal dialysis; Z89.512 Acquired absence of left leg below knee; Z89.511 Acquired absence of right leg below knee; Z86.74 Personal history of sudden cardiac arrest
CPT/HCPCS: 36415; 36600; 70450; 71045; 76770; 76937; 77001; 80048; 80053; 80069; 80074; 81001; 82010; 82140; 82270; 82310; 82803; 83036; 83540; 83550; 83605; 83735; 84100; 85014; 85018; 85025; 85610; 85730; 86580; 86704; 86706; 86850; 86900; 86901; 86923; 87040; 87077; 87081; 87086; 87186; 87340; 87811; 93306; 94640; 94664; 94667; 96374; 96375; 97161; 99291; A4649; A9270; C1750; C1751; C1894; J0696; J1265; J1642; J1643; J1815; J2250; J3010; J3475; J3490; J7042; J7050; J7999; P9016; Q5105

== ENCOUNTER 2024-09-10 00:17 | Inpatient (IN) | payer OTHER, MEDICARE, SELFPAY ==
[2024-09-10] VITALS (18 sets, daily range): BP systolic 97–136; BP diastolic 55–87; PULSE 59–73; RESP 15–61; TEMP 36.4–37.1; O2SAT 90–99; BMI 23.7
--- NOTE | 2024-09-10 00:36 | PD.EDSOB ---
ED SOB =RME/HPI General Chief Complaint: Shortness of Breath/Dyspnea Stated Complaint: SOB Time Seen by Provider: 09/10/24 00:43 Source: patient and EMS Arrival date/time: 09/10/24 00:17 Mode of arrival: EMS RME / HPI RME / HPI Narrative: Dr. Chavarria?s Main ED Evaluation: 64-year-old male with history of hypertension, diabetes, hyperlipidemia, CKD stage IIIb, HFrEF (EF 40%), CAD s/p PCI, prior cardiac arrest s/p ROSC, A-fib, and bilateral BKA, was brought in from [facility] with shortness of breath. Patient was recently discharged (less than 24 hours ago) after a hospital stay from 08/21/24 to 09/09/24 for septic shock due to UTI and acute on chronic kidney injury. He was initially in ICU for low blood pressure, treated with vasopressors, antibiotics, 1 unit PRBC, and received CRRT x2 followed by 4 sessions of HD. A dialysis catheter was placed but later removed once kidney function improved (Cr 2.2?2.4, eGFR 28?31). Echo during that stay showed EF improved to 40% (from 10?15% in 2023), with mild-moderate MR and moderate TR. He was discharged to SNF on Bumex 0.5 mg, Coreg 3.125 mg BID, sliding scale insulin, and advised to hold BP meds if SBP <100. Midodrine 5 mg TID PRN was prescribed for low BP. Now returns with shortness of breath. On arrival, patient was found to be hypoxic with oxygen saturation of 62% on room air and was immediately placed on 15L/min. Related Data Home Medications ?Medication ?Instructions ?Recorded ?Confirmed aspirin 81 mg tablet,delayed 81 mg PO QDAY 03/23/22 08/28/24 release gabapentin 300 mg capsule 300 mg PO QDAY 01/01/24 08/28/24 apixaban 2.5 mg tablet (Eliquis) 2.5 mg PO BID 07/20/24 08/28/24 ascorbic acid (vitamin C) 500 mg 500 mg PO BID 07/20/24 08/28/24 tablet (Vitamin C) ferrous sulfate 325 mg (65 mg 325 mg PO Q OTHER DAY 07/20/24 08/28/24 iron) tablet (FeroSul) hydrocodone 5 mg-acetaminophen 325 1 tab PO Q6H PRN pain 07/20/24 08/28/24 mg tablet multivitamin (Daily Multi-Vitamin 1 tab PO QDAY 07/20/24 08/28/24 tablet) acetaminophen 650 mg/20.3 mL oral 650 mg PO Q6H PRN fever or pain 08/28/24 08/28/24 suspension bisacodyl 10 mg rectal suppository 10 mg KS QDAY PRN constipation 08/28/24 08/28/24 (Dulcolax (bisacodyl)) insulin lispro 100 unit/mL 1 sliding scale dose subcut 08/28/24 08/28/24 subcutaneous pen (Admelog SoloStar USEASDIRECTD U-100 Insulin lispro) sodium phosphates 19 gram-7 118 ml KS QDAY PRN constipation 08/28/24 08/28/24 gram/118 mL enema Previous Rx's ?Medication ?Instructions ?Recorded famotidine 20 mg tablet 20 mg PO BID PRN acid reflux #60 07/21/24 tabs mirtazapine 15 mg tablet 30 mg (2 x 15 mg) PO QDAY #60 tabs 07/21/24 aluminum-mag hydroxide-simethicone 30 ml PO Q4HR PRN Heartburn or 09/08/24 200 mg-200 mg-20 mg/5 mL oral susp Upset Stomach #3,000 mL (Mag-Al Plus) amiodarone 200 mg tablet 200 mg PO QDAY #90 tabs 09/08/24 bumetanide 0.5 mg tablet 0.5 mg PO QDAY #90 tabs 09/08/24 carvedilol 3.125 mg tablet 3.125 mg PO BIDWM #90 tabs 09/08/24 midodrine 5 mg tablet 5 mg PO TID PRN SBP < 100 or MAP < 09/08/24 65 #30 tabs sodium citrate-citric acid 500 30 ml PO BID #1,200 mL 09/08/24 mg-334 mg/5 mL oral solution tamsulosin 0.4 mg capsule 0.4 mg PO HS #60 caps 09/08/24 Allergies Allergy/AdvReac Type Severity Reaction Status Date / Time No Known Allergies Allergy Verified 07/20/24 11:39 Review of Systems Review of Systems Systems Reviewed: All systems reviewed, normal except as documented Past Medical History Past Medical History NEUROLOGIC: Positive Neurological Disorders and Peripheral Neuropathy; Negative Cerebrovascular Accident, Transient Ischemic Attacks (TIA), Dementia, Alzheimer's Disease, Parkinson's Disease, Brain Tumor, Meningitis, Seizures, Epilepsy, Multiple Sclerosis, Cerebral Palsy, Amyotrophic Lateral Sclerosis (ALS/Sara Gehrig's), Guillain-Gadsden Syndrome, Spina Bifida, Paralysis, Eldridge's Palsy, Subdural Hematoma, Migraine, Head Trauma, Spinal Cord Injury or Traumatic Brain Injury CARDIAC: Positive Cardiac Disorders, Myocardial Infarction, Coronary Artery Disease, Hypercholesterolemia, Congestive Heart Failure, Cellulitis, Hypertension and Hypotension; Negative Cardiac Arrhythmia, Atrial Fibrillation, Angina, Heart Murmur, Atherosclerotic Heart Disease, Peripheral Vascular Disease, Aneurysm, Congenital Heart Disease, Valvular Heart Disease, Rheumatic Fever, Cardiomyopathy, Edema, Pericarditis, Deep Vein Thrombosis or Varicose Veins RESPIRATORY: Positive Pneumonia; Negative Chronic Obstructive Pulmonary Disease (COPD), Asthma, Bronchitis, Emphysema, Pulmonary Fibrosis, Cystic Fibrosis, Tuberculosis, Pulmonary Embolism, Pulmonary Edema or Sleep Apnea GASTROINTESTINAL: Negative Gastrointestinal Disorders, Hepatitis, Cirrhosis, Pancreatitis, Celiac Disease, Gall Bladder Disease, Gastrointestinal Bleed, Esophageal Varices, Mclaughlin's Esophagus, Colitis, Ulcerative Colitis, Diverticulitis, Diverticulosis, Ulcer, Colorectal Cancer, Irritable Bowel, Crohn's Disease, Obstructive Bowel, Hiatal Hernia, Hemorrhoids, Gastroesophageal Reflux Disease or Obesity GENITOURINARY: Negative Genitourinary Disorders, Renal Disease, Kidney Stones, Polycystic Kidney Disease, Neurogenic Bladder, Inguinal Hernia, Dialysis, Prostate Cancer or Benign Prostatic Hyperplasia REPRODUCTIVE: Negative Breast Cancer or Testicular Cancer MUSCULOSKELETAL: Positive Musculoskeletal Disorders and Osteomyelitis; Negative Muscular Dystrophy, Myasthenia Gravis, Marfan's Syndrome, Bone Cancer, Arthritis, Rheumatoid Arthritis, Osteoporosis, Degenerative Disk Disease, Gout, Scoliosis, Carpal Tunnel Syndrome, Fibromyalgia, Fractures, Degenerative Joint Disease or Poliovirus ENT: Negative Cataracts, Glaucoma, Blind, Retinal Detachment, Macular Degeneration, Ear Infection, Deafness, Head Trauma or Eye Prosthesis ENDOCRINE: Positive Endocrine Disorders and Diabetes Mellitus Type 2; Negative Diabetes Mellitus Type 1, Hypoglycemia, Wally's Syndrome, Breckenridge's Disease, Hyperthyroidism, Hypothyroidism, Parathyroid Disease, Pituitary Disease, Systemic Lupus Erythematosus, Syndrome of Inappropriate Antidiuretic Hormone (SIADH), Adrenal Disease or Graves' Disease HEMATOLOGIC: Negative Blood Disorders, Anemia, Leukemia, Hemophilia, Thalassemia, Sickle Cell Disease or Clotting Problems PSYCHO/SOCIAL: Negative Psychiatric Problems, Schizophrenia, Recreational Drug Use, Bipolar Disorder, Depression, Anxiety, Behavior Problems, Self-Mutilation, Attention Deficit Disorder, Attention Deficit Hyperactivity Disorder, Post Traumatic Stress Disorder or Eating Disorder OTHER HISTORY: Positive Hospitalization and Chicken Pox; Negative Autoimmune Disease, Down Syndrome, Autism, Developmental Delay, Shingles, Falls, Blood Transfusions, Blood Transfusion Reaction, Anesthesia Reactions, Organ Transplant, Chemotherapy, Radiation Therapy, Hyperbaric Therapy, MRSA, VRSA, Vancomycin-Resistant Enterococci, Human Immunodeficiency Virus (HIV), Measles, Mumps, Rubella (Scottish Measles), Pertussis, Clostridium Difficile, Cancer, Breast Cancer, Colorectal Cancer, Lung Cancer, Prostate Cancer or Testicular Cancer Family History FAMILY HISTORY: Positive Family Cardiac Disorders; Negative Family Psychiatric Problems, Family Respiratory Disorders, Family Gastrointestinal Problems, Family Cancer, Family Surgery or Family Anesthesia Reaction Surgical History SURGICAL: Positive Coronary Stent, Cardiac Catheterization and Angiogram; Negative Cardiac Surgery, Open Heart Surgery, Coronary Artery Bypass Graft, Valve Replacement, Vascular Surgery, Pacemaker, Auto Implanted Cardiovert Defib, Carotid Endarterectomy, Endocrine Surgery, Thyroidectomy, Ear Surgery, Tympanostomy Tube, Eye Surgery, Nose Surgery, Oral Surgery, Tonsillectomy, Adenoidectomy, Cochlear Implant, Corneal Transplant, Throat Surgery, Abdominal Surgery, Tracheostomy, Gastric Bypass Surgery, Gastrostomy, Bowel Surgery, Nephrectomy, Transurethral Resection, Joint Replacement, Amputation, Open Reduction Internal Fixation, Arthroscopy, Neurologic Surgery, Brain Shunt, Vasectomy or Organ Transplant Social History SMOKING STATUS: Never smoker SECOND HAND EXPOSURE: No SUBSTANCE USE: does not use ED Exam Narrative Physical exam: GENERAL APPEARANCE: alert and oriented x 4, well-developed, well-nourished, no acute distress, lying down on gurney, in adult diaper. VITALS: All vitals were reviewed and the pulse ox is 90% on 10 L/min via oxy mask which is hypoxic according to my interpretation. HEENT: Normocephalic, atraumatic; pupils equal, round, reactive to light; EOMI; mucous membranes pink, moist; oropharynx clear NECK: Supple LUNGS: Lung auscultation reveals diffuse rales and rhonchi bilaterally. Patient is tachypneic and appears to be in moderate respiratory distress. HEART: Regular rate, regular rhythm; normal S1, S2; no murmurs ABDOMEN: non distended; normal BS; soft, no tenderness, no guarding, no rebound; no masses, no organomegaly, no hernia BACK: no CVA tenderness EXTREMITIES: atraumatic; no edema NEUROLOGIC: awake; alert and oriented x4; cranial nerves II-XII grossly intact; no focal sensory or motor deficits PSYCHIATRIC: appropriate mood and affect SKIN: warm, dry, normal color; no rashes Course Course Course Narrative: CXR is ordered for determining etiology of shortness of breath. 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 Care 09/10/24 00:51 Active Continuous Pulse Oximetry NOW Care 09/10/24 00:50 Completed EKG (ED ONLY) *Do not use* NOW Care 09/10/24 00:51 Completed EKG (ED ONLY) *Do not use* NOW Care 09/10/24 04:12 Active Insert IV NOW Care 09/10/24 00:[address] angio chest Stat Exams 09/10/24 00:53 Stop Req EKG (ED Only) Stat Exams 09/10/24 00:50 Draft EKG (ED Only) Stat Exams 09/10/24 04:12 Ordered XR chest 1V portable Stat Exams 09/10/24 00:47 Taken Arterial Blood Gas Stat Lab 09/10/24 01:26 Completed B-Type Natriuretic Peptide Stat Lab 09/10/24 01:28 Completed CBC Stat Lab 09/10/24 01:28 Completed Comprehensive Metabolic Panel Stat Lab 09/10/24 01:28 Completed Magnesium Stat Lab 09/10/24 01:28 Completed Partial Thromboplastin Time Stat Lab 09/10/24 01:28 Received Prothrombin Time with INR Stat Lab 09/10/24 01:28 Received Troponin I Stat Lab 09/10/24 01:28 Completed Oxygen Delivery NOW RT 09/10/24 00:50 Active Vital Signs Vital signs: Vital Signs Temperature 97.6 F 09/10/24 00:19 Pulse Rate 73 09/10/24 00:19 Respiratory Rate 22 H 09/10/24 00:19 Blood Pressure 136/87 H 09/10/24 00:19 Pulse Oximetry (%) 90 L 09/10/24 00:19 Oxygen Delivery Method Oxy Mask 09/10/24 00:19 Oxygen Flow Rate 10 09/10/24 00:19 Shortness of Breath / Dyspnea MDM Narrative MDM Narrative:: This is a 64-year-old male with significant cardiac, renal, and metabolic comorbidities presenting with shortness of breath. Patient was recently discharged (less than 24 hours ago) after a hospital stay from 08/21/24 to 09/09/24 for septic shock due to UTI and acute on chronic kidney injury. He was initially in ICU for low blood pressure, treated with vasopressors, antibiotics, 1 unit PRBC, and received CRRT x2 followed by 4 sessions of HD. A dialysis catheter was placed but later removed once kidney function improved (Cr 2.2?2.4, eGFR 28?31). Echo during that stay showed EF improved to 40% (from 10?15% in 2023), with mild-moderate MR and moderate TR. He was discharged to SNF on Bumex 0.5 mg, Coreg 3.125 mg BID, sliding scale insulin, and advised to hold BP meds if SBP <100. Midodrine 5 mg TID PRN was prescribed for low BP. Differential includes pneumothorax, CHF, STEMI. Plan includes initiation of continuous cardiac monitoring, establishment of IV access, and completion of diagnostic studies including EKG, chest X-ray, CT chest, ABG, BNP, CBC, CMP, PT, PTT, INR, troponin, magnesium level, and respiratory therapy. Manual EKG obtained at 01:54 shows normal sinus rhythm at a rate of 64 bpm with normal axis, no ectopy, and no evidence of acute ischemia per my interpretation. 0126 ABG pO2 is 55. FiO2 65%. WBC is 11.5. H & H is 9.7/30.9. 0409 Case was discussed with Dr. Gruber, who accepted the patient for hospital admission. Scribe Attestation: I, Jhoana Freitas, am scribing for and in the presence of Dr. Chavarria. Provider Notation: Although this document has been carefully reviewed, there may still be some phonetic and other typographical errors. These errors are purely grammatical due to imperfections in the software program and should not be construed in any way to compromise the substance of the patient's medical care during this visit. Patient data External records reviewed:: [facility] previous records, EMS form and Long-Term records ([facility]) Clinical information provided by:: patient and EMS Social determinants that could affect healthcare access:: none Patient has the following chronic illnesses:: See PMH How is presenting disease/condition affected by chronic disease/condition?: exacerbated by Evaluation data The following diagnostics were reviewed and interpreted by me:: lab results, radiology exam(s) and EKG tracing(s) Lab and/or radiology exams considered but not ordered:: na Interpretation Summary: I personally reviewed the radiology data and agree with the radiologist's interpretation. Medications / Prescriptions Medications or Prescriptions considered but not ordered:: na Medication administrations:: as above, if any Consultations Consultation(s) initiated? (list below): Yes Consultation #1 (Physician, Specialty, Details): See MDM Diagnosis Shortness of Breath Differential Diagnosis: other (See MDM narrative) Most likely diagnosis given after review of the tests above:: See clinical impression Admission Indicated Admission indicated?: indicated Admission Request Was there a request for admission?: Yes Admission Attestation Admission request attestation: Discussed case with [] from Hospitalist service regarding admission. Discussed patients ED course, exam findings, labs, and radiology results. The Hospitalist [agrees,declines] to accept the patient for admission. Disposition Plan Disposition Plan: Admit Discharge Plan Plan Patient Disposition: Admit Acute Care w/in Hospital Patient condition on transfer: Stable Prescriptions/Referrals Prescriptions/Med Rec: No Action aspirin 81 mg Tablet,Delayed Release (Dr/Ec) 81 mg PO QDAY gabapentin 300 mg Capsule 300 mg PO QDAY Eliquis 2.5 mg tablet 2.5 mg PO BID ferrous sulfate [FeroSul] 325 mg (65 mg iron) tablet 325 mg PO Q OTHER DAY hydrocodone-acetaminophen 5-325 mg tablet 1 tab PO Q6H PRN (Reason: pain) Patient Comments: PLEASE SEE ATTACHED FOR DETAILED DIRECTIONS Rx Instructions: MODERATE TO SEVERE PAIN ascorbic acid (vitamin C) [Vitamin C] 500 mg tablet 500 mg PO BID Rx Instructions: END DATE 09/22/24 multivitamin [Daily Multi-Vitamin] Tablet 1 tab PO QDAY famotidine 20 mg tablet 20 mg PO BID PRN (Reason: acid reflux) Qty: 60 0RF mirtazapine 15 mg tablet 30 mg PO QDAY Qty: 60 0RF bisacodyl [Dulcolax (bisacodyl)] 10 mg suppository 10 mg KS QDAY PRN (Reason: constipation) Rx Instructions: IF MOM IS INEFFECTIVE AND NO BM FOR 8 HRS acetaminophen 650 mg/20.3 mL suspension 650 mg PO Q6H PRN (Reason: fever or pain) Rx Instructions: MILD PAIN; FEVER > 101.5. NOT TO EXCEED 3 GRAMS IN 24HOURS insulin lispro [Admelog SoloStar U-100 Insulin] 100 unit/mL insulin pen 1 sliding scale dose subcut USEASDIRECTD Rx Instructions: subcutaneously use as directed; sodium phosphates 19-7 gram/118 mL enema 118 ml KS QDAY PRN (Reason: constipation) Rx Instructions: IF MOM AND DULOLAX SUPP ARE INEFFECTVE AND NO BM FOR 8 HRS. amiodarone 200 mg Tablet 200 mg PO QDAY Qty: 90 0RF carvedilol 3.125 mg Tablet 3.125 mg PO BIDWM Qty: 90 0RF sodium citrate-citric acid 500-334 mg/5 mL Solution 30 ml PO BID Qty: 1200 0RF tamsulosin 0.4 mg Capsule 0.4 mg PO HS Qty: 60 0RF midodrine 5 mg Tablet 5 mg PO TID PRN (Reason: SBP < 100 or MAP < 65) Qty: 30 0RF alum-mag hydroxide-simeth [Mag-Al Plus] 200-200-20 mg/5 mL Suspension 30 ml PO Q4HR PRN (Reason: Heartburn or Upset Stomach) Qty: 3000 0RF bumetanide 0.5 mg tablet 0.5 mg PO QDAY Qty: 90 0RF Referrals: Alfa Le MD [Primary Care Provider] - In 1 week Problem List Clinical Impression: Flash pulmonary edema, Acute hypoxic respiratory failure Patient/Caregiver Discharge Instructions Print Language: Wallisian Stand Alone Forms: [employer] Award Info., Patient Portal Info Letter
--- NOTE | 2024-09-10 00:47 | XR_ITS ---
Examination: AP chest single view Technique one AP portable upright chest single view Exam date and time: September 10, 2024 at 0055 hours Comparison August 22, 2024 INDICATIONS: Difficulty breathing today. FINDINGS: Extensive bilateral lung opacity Normal heart size Moderate vascular congestion IMPRESSION:: Extensive bilateral pneumonia
--- NOTE | 2024-09-10 00:50 | EKG_ITS ---
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1960 Requested By: Genaro Powers Order Number: [id number] Reading MD: Genaro Powers Measurements Intervals [place] Rate: 64 P: 7 TX: 236 QRS: -9 QRSD: 95 T: 62 QT: 416 QTc: 432 Interpretive Statements SINUS RHYTHM WITH FIRST DEGREE AV BLOCK LOW QRS VOLTAGE IN EXTREMITY LEADS [QRS DEFLECTION < 0.5 mV IN LIMB LEADS] POSSIBLE ANTERIOR MYOCARDIAL INFARCTION , OF INDETERMINATE AGE [30 ms Q WAVE IN V3/V4, OR R < 0.2 mV IN V4] Compared to ECG 08/21/2024 19:06:11 First degree AV block now present Low QRS voltage now present Myocardial infarct finding now present Left-axis deviation no longer present Intraventricular conduction delay no longer present Prolonged QT interval no longer present /store/S0/[id number]/[id number].pdf
--- NOTE | 2024-09-10 01:12 | PC.NURSE ---
PT TATIANNA PAGAN FOR SOB AT [facility] PT WAS D/C THIS AM FROM HOSPITAL FOR REMOVAL OF DIALYSIS PORT, PT STATES THAT HE WAS NOT SOB THIS AM. PER EMS PT WAS 72% ON SIMPLE MASK THEN PLACED ON NON REBREATHER 90%, WHEN TRANSFERRED TO ROOM AIR PT SAT 61% ON RA, PT HAD WORK OF BREATHING INCLUDING ABD MUSCLES PT LUNG SOUNDS DIMINISHED BILATERALLY, PT WAS PLACED ON 15 L SIMPLE MASK. PT ALSO HAS A LARGE BRUISE TO LEFT GROIN,PT HAS BRUISE TO LEFT SIDE OF NECK AND RIGHT SIDE OF NECK.
[2024-09-10 01:30] LABS: Base Excess 2 (-3-3); HCO3 28 mEq/L (20-26); O2 Saturation 88 % (91-98); PCO2 48 mmHg (32.0-48.0); pH, Arterial 7.37 (7.35-7.45)
[2024-09-10 01:33] LABS: Allen Test Performed/OK; Inspired Oxygen, FIO2 65 %; PO2 55 mmHg (83-108); Puncture Site Right Radial
[2024-09-10 01:43] LABS: Basophils % (Auto) 0 % (0-2.5); Eosinophils # (Auto) 0.2 Thou/mm3 (0.0-0.5); Eosinophils % (Auto) 2 % (0-10); Hematocrit 30.9 % (41.0-53.0); Hemoglobin 9.7 g/dL (13.5-16.0); Immature Granulocytes % (Auto) 0 % (0-0); Immature Granulocytes Auto 0.05 Thou/mm3 (0.00-0.00); Lymphocytes # (Auto) 0.9 Thou/mm3 (1.0-4.8); Lymphocytes % (Auto) 7 % (10-50); Mean Corpuscular HGB Conc 31.4 g/dl (31.0-37.0); Mean Corpuscular Volume 86 fL (80-100); Monocytes # (Auto) 0.6 Thou/mm3 (0.0-0.8); Monocytes % (Auto) 5 % (0-12); Neutrophils # (Auto) 9.8 Thou/mm3 (1.8-7.7); Neutrophils % (Auto) 85 % (37-80); Nucleated Red Blood Cell % 0 /100 WBC (0); Platelet Count 380 Thou/mm3 (140-440); RDW Standard Deviation 61.8 fL (35.1-43.9); Red Blood Count 3.59 Miln/mm3 (4.50-5.90); White Blood Count 11.5 Thou/mm3 (3.8-10.6)
[2024-09-10 03:52] LABS: Alanine Aminotransferase 11 U/L (10-49); Albumin, Serum 3.5 gm/dL (3.4-4.8); Albumin/Globulin Ratio 1.2 (1.2-2.2); Alkaline Phosphatase 83 U/L (46-116); Anion Gap 8 (7-16); Aspartate Amino Transferase 20 U/L (0-34); B-Type Natriuretic Peptide 1633 pg/mL (0-100); BUN/Creatinine Ratio 15 Ratio (12-20); Bilirubin,Total 0.4 mg/dL (0.3-1.2); Blood Urea Nitrogen 36 mg/dL (9-23); Calcium 8.3 mg/dL (8.3-10.6); Calcium (Corrected) 8.7 mg/dL (8.5-10.1); Carbon Dioxide 28.4 mMol/L (20.0-31.0); Chloride 103 mMol/L (98-107); Creatinine (Component) 2.4 mg/dL (0.6-1.3); Globulin 2.9 gm/dL (2.3-3.5); Glucose 217 mg/dL (74-106); Magnesium 2.6 mg/dL (1.6-2.6); Osmolality,Calculated 292 (275-295); Potassium 5.7 mMol/L (3.4-5.1); Sodium 139 mMol/L (136-145); Total Protein 6.4 gm/dL (5.7-8.2); Troponin I < 0.020 ng/mL (0.0-0.045); eGFR 29 See Note
--- NOTE | 2024-09-10 03:58 | PC.NURSE ---
ct called due to pt creat 2.[address] with contrast notified
--- NOTE | 2024-09-10 04:02 | PC.NURSE ---
WE HAD DOWN TIME FROM [id number].
--- NOTE | 2024-09-10 04:12 | EKG_ITS ---
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
[2024-09-10 04:19] LABS: Partial Thromboplastin Time 28.4 Seconds (22.0-36.0); Prothrombin Time 11.3 Seconds (9.0-12.2)
--- NOTE | 2024-09-10 04:51 | PC.NURSE ---
hospitalist in with pt
--- NOTE | 2024-09-10 04:59 | ECHO_ITS ---
Transthoracic Echo Report Ht (in): 69 Wt (lb): 135 Exam Location: Portable Status: Emergency Rubber Tile Floor Layer: LENA Zuleta^^^^ Indications: Procedure Performed: BP: 122 / 71 HR: MEASUREMENTS (Male / Female) Normal Values 2D ECHO LV Diastolic Diameter PLAX 5.4 cm 4.2 - 5.9 / 3.9 - 5.3 cm LV Systolic Diameter PLAX 4.6 cm IVS Diastolic Thickness 0.8 cm 0.6 - 1.0 / 0.6 - 0.9 cm LVPW Diastolic Thickness 0.7 cm 0.6 - 1.0 / 0.6 - 0.9 cm LV Relative Wall Thickness 0.3 LVOT Diameter 1.8 cm Aortic Root Diameter 3.6 cm LA Systolic Diameter LX 4.2 cm 3.0 - 4.0 / 2.7 - 3.8 cm LV Ejection Fraction MOD BP 36.7 % >= 55 % LV Ejection Fraction MOD 4C 39.4 % LV Ejection Fraction 4C AL 41.1 % LV Ejection Fraction MOD 2C 29.3 % LV Ejection Fraction 2C AL 32.9 % LA Volume Index 58.0 cm?/m? 16 - 28 cm?/m? Ascending Aorta Diameter 3.4 cm DOPPLER AV Peak Velocity 101.5 cm/s AV Peak Gradient 4.1 mmHg AV Mean Gradient 2.5 mmHg AV Velocity Time Integral 22.4 cm LVOT Peak Velocity 65.0 cm/s LVOT Peak Gradient 1.7 mmHg LVOT Velocity Time Integral 17.2 cm AV Area Cont Eq vti 2.0 cm? AV Area Cont Eq pk 1.6 cm? MV Area PHT 6.5 cm? MR Peak Velocity 580.5 cm/s MR Peak Gradient 134.8 mmHg Mitral E Point Velocity 67.3 cm/s Mitral A Point Velocity 45.9 cm/s Mitral E to A Ratio 1.5 LV E' Lateral Velocity 4.3 cm/s Mitral E to LV E' Lateral Ratio 15.5 LV E' Septal Velocity 6.1 cm/s Mitral E to LV E' Septal Ratio 11.0 TR Peak Velocity 336.0 cm/s TR Peak Gradient 45.2 mmHg RVOT Peak Velocity 51.0 cm/s FINDINGS Left Ventricle Left ventricle ios dilated with anterior septal apical akinesis.The left ventricular ejection fraction is severely decreased, estimated at 35%. Right Ventricle The right ventricle is normal in size and systolic function. The estimated right ventricular systolic pressure is elevated 53 mmHg. Left Atrium Moderately increased left atrial volume 58 mL/m?. Right Atrium The right atrium is normal by two-dimensional imaging, color flow and Doppler imaging with no structural abnormalities, no thrombus formation present. Atrial Septum The interatrial septum appears normal with no evidence of a shunt. Aorta The aorta is normal by two-dimensional, color flow and Doppler interrogation. Mitral Valve Moderate mitral regurgitation. Mild thickening of the mitral valve leaflets. Mild mitral annular calcification. Aortic Valve The aortic valve is trileaflet and normal by two-dimensional, color flow and Doppler interrogation. There is no significant aortic valve regurgitation. Tricuspid Valve There is moderate tricuspid regurgitation. Pulmonic Valve Trivial pulmonic valve regurgitation. Vessels The pulmonary artery appears normal. The inferior vena cava pulmonary and hepatic veins appear normal. Pericardium There is a small pericardial effusion. CONCLUSIONS indication: SOB ischemic cardiomyopathy with old anterior apical and septal myocardial infarction LVEF 35%. RV appears normal with elevated RVSP 53 mmHg. LA is moderately dilated. Moderate mitral regurgitation Moderate tricuspid regurgitation Left pleural effusion is present Ankita Patino (Electronically Signed) Final Date: 10 September 2024 11:51
--- NOTE | 2024-09-10 05:19 | PD.RESHP ---
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 The patient suddenly developed SOB and [place] [facility] [place], and EMS found him to be saturating on 70s, was started on oxygen and brought to the ED. He denied any lightheadedness, chest pain, abdominal pain, any leg swelling, fever or chills, nausea or vomiting. In the ED, his vitals were significant for blood pressure 136/87, pulse 133, RR 22, saturating 90% on 10 L oxy mask. Labs were significant for white count 11.5, hemoglobin 9.7, ABG revealing pO2 55, chemistry panel revealed potassium 5.7, BUN 36, creatinine 2.4, GFR 29, blood sugar 217, BNP 1633. EKG revealed [address] segment elevation on lead V2, but no reciprocal ST depression were seen, sinus rhythm. CXR revealed severe vascular congestion, possible pulmonary edema. In the ED, patient was given IV Lasix 40 Mg x 1, and started on high flow nasal cannula. Patient improved significantly and was admitted to telemetry unit for further management of acute hypoxic respiratory failure secondary to pulmonary edema secondary to acute CHF exacerbation. PMH: As mentioned above Surgical history: Left heart catheterization, bilateral below-knee amputation 2/2 work-related injury Social history: Denies smoking, alcohol use or illicit drug use Allergies: NKDA Medications: Amiodarone 200 Mg daily, Bumex 0.85 Mg twice daily, Eliquis 2.5 Mg twice daily, carvedilol 3.375 Mg twice daily, aspirin 81 Mg daily, tamsulosin 0.5 Mg daily Review of Systems Review of Systems Systems Reviewed: All systems reviewed, normal except as documented Exam Vital Signs Temp Pulse Resp BP Pulse Ox O2 Del Method O2 Flow Rate 98.1 F 68 23 H 132/77 H 96 High Flow Nasal Cannula 09/10/24 05:00 09/10/24 05:00 09/10/24 05:00 09/10/24 05:00 09/10/24 05:00 09/10/24 05:00 09/10/24 05:00 FiO2 65 09/10/24 05:00 Narrative Exam General: No acute distress, Alert and Oriented x 3 HEENT: Moist mucous membranes, oropharynx clear Neck: Supple, No masses, No JVD CVS: S1S2 Regular rate and rhythm, No murmurs, rubs or gallops Lungs: Mild bibasilar crackles, no wheeze no rhonchi Abd: Soft, NT/ND, +BS, no organomegaly Ext: No edema, warm and well perfused Skin: No rash Psych: Appropriate mood and affect Results: Labs 09/10/24 05:15 09/10/24 16:07 Labs: Short CBC 09/10/24 Range/Units 01:28 WBC 11.5 H D (3.8-10.6) Thou/mm3 Hgb 9.7 L (13.5-16.0) g/dL Hct 30.9 L (41.0-53.0) % Plt Count 380 (140-440) Thou/mm3 BMP 09/10/24 01:28 Sodium 139 Potassium 5.7 H D Chloride 103 Carbon Dioxide 28.4 BUN 36 H Creatinine 2.4 H Glucose 217 H Calcium 8.3 Cardiac Enzymes 09/10/24 Range/Units 01:28 Troponin I < 0.020 (0.0-0.045) ng/mL Liver Function 09/10/24 Range/Units 01:28 Total Bilirubin 0.4 (0.3-1.2) mg/dL AST 20 (0-34) U/L ALT 11 (10-49) U/L Alkaline Phosphatase 83 (46-116) U/L Albumin 3.5 (3.4-4.8) gm/dL ABG Interpretation ABG results: 09/10/24 01:26 ABG pH 7.37 ABG pCO2 48 ABG pO2 55 L* ABG HCO3 28 H ABG O2 Saturation 88 L ABG Base Excess 2 Quality Measures Quality Measures none Advance care planning discussed with:: patient Medications Home Medications and Allergies Home Medications ?Medication ?Instructions ?Recorded ?Confirmed ?Type aspirin 81 mg tablet,delayed 81 mg PO QDAY 03/23/22 08/28/24 History release gabapentin 300 mg capsule 300 mg PO QDAY 01/01/24 08/28/24 History apixaban 2.5 mg tablet (Eliquis) 2.5 mg PO BID 07/20/24 08/28/24 History ascorbic acid (vitamin C) 500 mg 500 mg PO BID 07/20/24 08/28/24 History tablet (Vitamin C) ferrous sulfate 325 mg (65 mg 325 mg PO Q OTHER DAY 07/20/24 08/28/24 History iron) tablet (FeroSul) hydrocodone 5 mg-acetaminophen 325 1 tab PO Q6H PRN pain 07/20/24 08/28/24 History mg tablet multivitamin (Daily Multi-Vitamin 1 tab PO QDAY 07/20/24 08/28/24 History tablet) acetaminophen 650 mg/20.3 mL oral 650 mg PO Q6H PRN fever or pain 08/28/24 08/28/24 History suspension bisacodyl 10 mg rectal suppository 10 mg KS QDAY PRN constipation 08/28/24 08/28/24 History (Dulcolax (bisacodyl)) insulin lispro 100 unit/mL 1 sliding scale dose subcut 08/28/24 08/28/24 History subcutaneous pen (Admelog SoloStar USEASDIRECTD U-100 Insulin lispro) sodium phosphates 19 gram-7 118 ml KS QDAY PRN constipation 08/28/24 08/28/24 History gram/118 mL enema Allergies Allergy/AdvReac Type Severity Reaction Status Date / Time No Known Allergies Allergy Verified 09/10/24 05:32 Visit Medications Acetaminophen (Acetaminophen 325 Mg Tablet) 650 mg PO Q6H PRN PRN Reason: Fever >101.5 Stop: 10/10/24 04:53 Acetaminophen (Acetaminophen 325 Mg Tablet) 650 mg PO Q6H PRN PRN Reason: PAIN SCALE 1-3 (mild Stop: 10/10/24 04:53 Amiodarone HCl (Amiodarone Hcl 200 Mg Tablet) 200 mg PO QDAY KENNY Stop: 10/10/24 08:59 Apixaban (Apixaban 2.5 Mg Tablet) 2.5 mg PO BID KENNY Stop: 10/10/24 08:59 Aspirin (Aspirin Ec 81 Mg Tabec) 81 mg PO QDAY KENNY Stop: 10/10/24 08:59 Furosemide (Furosemide Inj 10 Mg/Ml 4ml Vial) 40 mg IVP BID KENNY Stop: 10/10/24 08:59 Gabapentin (Gabapentin 300 Mg Capsule) 300 mg PO QDAY KENNY Stop: 10/10/24 08:59 Midodrine (Midodrine 5 Mg Tablet) 5 mg PO TID PRN PRN Reason: SBP <100 or DBP< 65 Stop: 10/10/24 05:59 Tamsulosin HCl (Tamsulosin Hcl 0.4 Mg Capsule) 0.4 mg PO HS KENNY Stop: 10/10/24 20:59 Discontinued Medications Heparin Sodium (Porcine) (Heparin Sod Inj 5000 Unit/Ml Vial) 5,000 unit SC Q8HR KENNY Stop: 09/24/24 05:59 Assessment & Plan Plan The patient is a 64-year-old male with significant past medical history of primary hypertension, insulin-dependent diabetes mellitus, hyperlipidemia, CKD stage IIIb, HFrEF with LVEF 40% 2 weeks ago, CAD s/p PCI, history of cardiac arrest s/p ROSC, 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 Patient improved significantly and was admitted to telemetry unit for further management of acute hypoxic respiratory failure secondary to pulmonary edema secondary to acute CHF exacerbation. #Acute hypoxic respiratory failure 2/2 #Pulmonary edema 2/2 #Acute exacerbation of HFrEF Patient presented with SOB, was found to have hypoxic saturating 70s in his facility, chest x-ray significant for pulmonary edema, last echo done 2 weeks ago was revealing LVEF of 40% and moderate mitral regurgitation. Patient received 40 Mg IV Lasix in the ED and was started on high flow nasal cannula -Continue on high flow nasal cannula for now, taper down oxygen as tolerated -Started on Lasix 40 Mg IV twice daily -Strict ins and outs -Fluid restriction to 1200 cc/day -TTE ordered -GDMT to be started as tolerated -Midodrine 5mg TID to maintain SBP>100 and DBP >65 -Daily a.m. labs were CBC, CMP and electrolytes #Hyperkalemia Presented with potassium of 5.7 -Monitor a.m. labs #Insulin-dependent diabetes mellitus Currently n.p.o. -Started on sliding scale insulin lispro every 6 hourly #CKD stage IIIb Currently stable -Avoid nephrotoxic drugs -Monitor a.m. labs for CMP #Hypertension #Hyperlipidemia #CAD s/p stents -Started on aspirin 81 Mg daily -Blood pressure currently stable, we will hold on carvedilol 3.375 Mg twice daily for now -Continue to monitor #A-fib Patient has history of A-fib -Started on home dose of amiodarone 200 Mg daily -Maintain potassium level greater than 4 and magnesium level greater than 2 Health maintenance: Dispo: Patient admitted to telemetry unit for further management of acute hypoxic respiratory failure secondary to pulmonary edema secondary to CHF exacerbation Diet: N.p.o. for now DVT prophylaxis: On Eliquis 2.5 Mg twice daily CODE STATUS: Full code The patient's management plan was discussed with my attending physician MD Jesus Manuel Daly MD, PGY2 Attending Provider Attestation/Addendum I attest that I was physically present for the evaluation, physical examination, lab and imaging review of the patient with the residents. I discussed the case with the residents and agree with the findings and plans of care as documented above. Patient is a 64 years old male with past medical history of hypertension, diabetes, hyperlipidemia, CKD, HFrEF, CAD, cardiac arrest, bilateral BKA, A-fib and mitral regurgitation who presented to the ED with complaint of shortness of breath. Patient was discharged yesterday after being managed for cardiogenic shock, UTI, acute on CKD, acute blood loss anemia. But after reaching to [facility], he started having shortness of breath few hours ago, was found to be hypoxic with oxygen saturations down up to 70s and was brought back to the ED. In the ED, she is tachycardic, tachypneic, and was started on a high flow nasal cannula 25 L, 65 FiO2. Lab results show WBC of 11.5, hemoglobin 9.7, BUN/creatinine 36/2.4, potassium 5.7, blood glucose 217, BNP 1633. Chest x-ray was done, which shows vascular congestion and possible pulmonary edema. ABG was done, which showed pCO2 of 55. we will admit the patient for management of acute hypoxic respiratory failure secondary to CHF exacerbation, volume overload. We will start him on aggressive diuresis with 40 mg IV Lasix, we will continue with supplemental oxygen, strict ins and out, fluid restriction. We will also obtain transthoracic echocardiogram. We will obtain repeat labs for potassium level, if continues to be high, we will start Kayexalate. Started on insulin regimen for diabetes. Carey Miller MD
[2024-09-10 05:46] LABS: Basophils % (Auto) 0 % (0-2.5); Eosinophils # (Auto) 0.1 Thou/mm3 (0.0-0.5); Eosinophils % (Auto) 2 % (0-10); Hemoglobin 9.9 g/dL (13.5-16.0); Immature Granulocytes % (Auto) 1 % (0-0); Immature Granulocytes Auto 0.04 Thou/mm3 (0.00-0.00); Lymphocytes # (Auto) 1.1 Thou/mm3 (1.0-4.8); Lymphocytes % (Auto) 14 % (10-50); Mean Corpuscular HGB Conc 31.9 g/dl (31.0-37.0); Mean Corpuscular Hemoglobin 27.3 pg (25.0-35.0); Mean Corpuscular Volume 85 fL (80-100); Monocytes # (Auto) 0.5 Thou/mm3 (0.0-0.8); Monocytes % (Auto) 7 % (0-12); Neutrophils # (Auto) 6.1 Thou/mm3 (1.8-7.7); Neutrophils % (Auto) 77 % (37-80); Nucleated Red Blood Cell % 0 /100 WBC (0); Platelet Count 385 Thou/mm3 (140-440); RDW Standard Deviation 60.7 fL (35.1-43.9); Red Blood Count 3.63 Miln/mm3 (4.50-5.90); White Blood Count 7.9 Thou/mm3 (3.8-10.6)
[2024-09-10] MEDS: INSULIN LISPRO (AdmeLOG) 1 UNIT/0.01 ML UNIT SC ×2 (06:08→21:05)
--- NOTE | 2024-09-10 06:19 | PC.NURSE ---
pt augustus called for update. advised that he is being admitted at this time. provided phone to pt so he can speak with as she wanted to take to him.
[2024-09-10 07:27] LABS: Alanine Aminotransferase 12 U/L (10-49); Albumin, Serum 3.5 gm/dL (3.4-4.8); Albumin/Globulin Ratio 1.2 (1.2-2.2); Alkaline Phosphatase 78 U/L (46-116); Anion Gap 9 (7-16); Aspartate Amino Transferase 18 U/L (0-34); BUN/Creatinine Ratio 17 Ratio (12-20); Bilirubin,Total 0.5 mg/dL (0.3-1.2); Blood Urea Nitrogen 38 mg/dL (9-23); Calcium 8.7 mg/dL (8.3-10.6); Calcium (Corrected) 9.1 mg/dL (8.5-10.1); Carbon Dioxide 27.2 mMol/L (20.0-31.0); Chloride 103 mMol/L (98-107); Creatinine (Component) 2.3 mg/dL (0.6-1.3); Estimated Creatinine Clearance 25.4 mL/min (>60); Glucose 166 mg/dL (74-106); Magnesium 2.4 mg/dL (1.6-2.6); Osmolality,Calculated 290 (275-295); Potassium 5.3 mMol/L (3.4-5.1); Sodium 139 mMol/L (136-145); Total Protein 6.5 gm/dL (5.7-8.2); eGFR 31 See Note
[2024-09-10 08:21] LABS: D-Dimer 1370 ng/mL (<600)
[2024-09-10 08:47] LABS: Amphetamine/Methamp Scrn,U Negative (Negative); Barbiturate Screen,Urine Negative (Negative); Benzodiazepines Screen,Urine Negative (Negative); Benzoylecgonine Screen, Ur Negative (Negative); Fentanyl Screen,Urine Negative (Negative); Opiate Screen,Urine Negative (Negative); THC Screen,Urine Negative (Negative)
[2024-09-10] MEDS: GABAPENTIN 300 MG CAPSULE PO (08:47)
[2024-09-10] MEDS: SOD POLYSTYRENE SULFON SUSP 15 GM/60 ML BTL PO (08:47)
[2024-09-10] MEDS: ASPIRIN EC 81 MG TABEC PO (08:48)
[2024-09-10] MEDS: FUROSEMIDE INJ 10 MG/ML 4ML VIAL 40 MG IVP (08:48)
[2024-09-10] MEDS: APIXABAN 2.5 MG TABLET PO ×2 (08:48→20:44)
[2024-09-10] MEDS: AMIODARONE HCL 200 MG TABLET PO (08:48)
--- NOTE | 2024-09-10 09:44 | PC.CC ---
Patient is a 64 year-old male who [facility]. Dawn PRADHAN made face to face contact with patient to complete initial assessment. Patient was asleep at bedside was patient's /Next of Kin Shreya Galdamez who completed initial with ASW. Patient is currently residing at [facility] as he is bedbound and max assist with all ADLs. When patient does ambulate it is with a wheelchair and assistance. Patient also requires oxygen as needed. Patient receives primary care with Alfa Le. Upon discharge patient will be returning back to [facility]. director of creative services to follow-up with any discharge needs.
--- NOTE | 2024-09-10 09:50 | ESCONSULT_ITS ---
<Statement entered by Janee Velazquez MD - 09/12/24 16:47> I personally assessed the patient examined the patient along with resident physician patient is came back to the hospital severe shortness of breath acutely decompensated congestive heart failure ejection fraction dropped to 35% again aggressive diuresis is being given with bumetanide patient is responding well to diuresis continues to improve slowly patient probably will be discharged home on diuretic therapy maintenance at least 2 mg Bumex and monitor blood pressure closely. 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 The patient suddenly developed SOB and [place], and EMS found him to be saturating on 70s, was started on oxygen and brought to the ED. He denied any lightheadedness, chest pain, abdominal pain, any leg swelling, fever or chills, nausea or vomiting. Cardiology consulted for heart failure exacerbation due to fluid overload. cc:: cc: Bradley Canchola MD Exam Vital Signs Temp Pulse Resp BP Pulse Ox O2 Del Method O2 Flow Rate 97.6 F 61 22 H 108/62 97 High Flow Nasal Cannula 25 09/11/24 04:00 09/11/24 09:23 09/11/24 06:38 09/11/24 09:23 09/11/24 06:38 09/11/24 04:00 09/11/24 06:38 FiO2 45 09/11/24 06:38 Narrative Exam General: Awake. on high flow oxygen HEENT: Normocephalic, atraumatic, mucous membranes moist. Heart: Regular rate and rhythm, no murmurs. Lungs: Clear to auscultation with no wheezing. Fine crackles are heard on both sides Abdomen: Soft, nondistended, nontender, positive bowel sounds. ?No guarding or rebound tenderness. Neurologic: Alert and oriented x3, no gross neurological deficit, and patient able to move all 4 extremities. Extremities: No edema. 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 B/L BKA Skin: No rash or ecchymoses. Results Labs 09/11/24 05:30 09/11/24 05:30 Labs: Short CBC 09/11/24 Range/Units 05:30 WBC 6.7 (3.8-10.6) Thou/mm3 Hgb 8.9 L (13.5-16.0) g/dL Hct 28.8 L (41.0-53.0) % Plt Count 400 (140-440) Thou/mm3 BMP 09/10/24 09/11/24 16:07 05:30 Sodium 139 Potassium 4.8 D 4.9 Chloride 103 Carbon Dioxide 27.2 BUN 38 H Creatinine 2.4 H Glucose 144 H Calcium 8.2 L Liver Function 09/11/24 Range/Units 05:30 Total Bilirubin 0.4 (0.3-1.2) mg/dL AST 22 (0-34) U/L ALT 9 L (10-49) U/L Alkaline Phosphatase 73 (46-116) U/L Albumin 3.1 L (3.4-4.8) gm/dL ABG Interpretation ABG results: 09/10/24 09/11/24 01:26 05:30 ABG pH 7.37 ABG pCO2 48 ABG pO2 55 L* ABG HCO3 28 H ABG O2 Saturation 88 L ABG Base Excess 2 VBG pH 7.46 VBG pCO2 43 VBG pO2 47 VBG Base Excess 6 H Quality Measures Quality Measures none Advance care planning discussed with:: patient Medications Home Medications and Allergies Home Medications ?Medication ?Instructions ?Recorded ?Confirmed ?Type bisacodyl 10 mg rectal suppository 10 mg [place] QDAY PRN c onstipation 08/28/24 09/10/24 History (Dulcolax (bisacodyl)) insulin lispro 100 unit/mL 1 sliding scale dose subcut 08/28/24 09/10/24 History subcutaneous pen (Admelog SoloStar USEASDIRECTD U-100 Insulin lispro) sodium phosphates 19 gram-7 118 ml [place] QDAY PRN constip ation 08/28/24 09/10/24 History gram/118 mL enema acetaminophen 325 mg tablet 650 mg PO Q4H PRN fever or pain 09/10/24 09/10/24 History magnesium hydroxide 400 mg/5 mL 30 ml PO Q24H PRN cons tipation 09/10/24 09/10/24 History oral suspension (Milk of Magnesia) sodium citrate-citric acid 500 30 ml PO BID 09/10/24 0 09/10/24 History mg-334 mg/5 mL oral solution (Cytra-2) Allergies Allergy/AdvReac Type Severity Reaction Status Date / Time No Known Allergies Allergy Verified 09/10/24 05:32 Visit Medications Acetaminophen (Acetaminophen 325 Mg Tablet) 650 mg PO Q6H PRN PRN Reason: Fever >101.5 Stop: 10/10/24 04:53 Acetaminophen (Acetaminophen 325 Mg Tablet) 650 mg PO Q6H PRN PRN Reason: PAIN SCALE 1-3 (mild Stop: 10/10/24 04:53 Amiodarone HCl (Amiodarone Hcl 200 Mg Tablet) 200 mg PO QDAY [facility] Stop: 10/10/24 08:59 Last Admin: 09/11/24 09:22 Dose: 200 mg Apixaban (Apixaban 2.5 Mg Tablet) 2.5 mg PO BID [facility] Stop: 10/10/24 08:59 Last Admin: 09/11/24 09:22 Dose: 2.5 mg Aspirin (Aspirin Ec 81 Mg Tabec) 81 mg PO QDAY [facility] Stop: 10/10/24 08:59 Last Admin: 09/11/24 09:22 Dose: 81 mg Bumetanide (Bumetanide Inj 0.25 Mg/Ml Vial 4 Ml) 2 mg IVP BID [facility] Stop: 10/10/24 20:59 Last Admin: 09/11/24 09:23 Dose: 2 mg Dextrose (Dextrose 50%-Water Inj 50 Ml Syringe) 25 ml IV Q15MIN PRN PRN Reason: BG 50-70 responsive npo pt Stop: 10/10/24 05:49 Dextrose (Dextrose 50%-Water Inj 50 Ml Syringe) 50 ml IV Q15MIN PRN PRN Reason: BG <50 OR BG <70 & pt unresponsive Stop: 10/10/24 05:49 Gabapentin (Gabapentin 300 Mg Capsule) 300 mg PO QDAY [facility] Stop: 10/10/24 08:59 Last Admin: 09/11/24 09:24 Dose: Not Given Glucagon (Glucagon Inj 1 Mg Vial) 1 mg IM Q15MIN PRN PRN Reason: BG <70, and no IV access Insulin Human Lispro (Insulin Lispro (Admelog) 1 Unit/0.01 Ml Unit) 0 unit SC ACHS [facility]; Protocol Stop: 10/10/24 11:29 Last Admin: 09/11/24 07:25 Dose: Not Given Midodrine (Midodrine 5 Mg Tablet) 5 mg PO TID PRN PRN Reason: SBP <100 or DBP< 65 Stop: 10/10/24 05:59 Pharmacy Consult (Vancomycin Pharmacy To Dose 1 Each Each) 1 each IV QDAY [facility] Stop: 10/11/24 08:59 Tamsulosin HCl (Tamsulosin Hcl 0.4 Mg Capsule) 0.4 mg PO HS [facility] Stop: 10/10/24 20:59 Last Admin: 09/10/24 20:44 Dose: 0.4 mg Discontinued Medications Furosemide (Furosemide Inj 10 Mg/Ml 4ml Vial) 40 mg IVP BIDD [facility] Stop: 10/10/24 08:59 Last Admin: 09/10/24 08:48 Dose: 40 mg Heparin Sodium (Porcine) (Heparin Sod Inj 5000 Unit/Ml Vial) 5,000 unit SC Q8HR KENNY Stop: 09/24/24 05:59 Cefepime HCl 1 gm/ Sodium (Chloride) 50 mls @ 100 mls/hr IV Q12HR KENNY Stop: 09/17/24 10:55 Last Admin: 09/11/24 09:21 Dose: 100 mls/hr Vancomycin/Sodium Chloride (Vancomycin/Ns 1 Gm Ivpb) 200 mls @ 120 mls/hr IV X1 ONE Stop: 09/10/24 12:33 Last Infusion: 09/10/24 19:23 Dose: Infused Vancomycin/Sodium Chloride (Vancomycin/Ns 500 Mg Ivpb) 100 mls @ 120 mls/hr IV Q24H [facility] Stop: 09/18/24 09:59 Insulin Human Lispro (Insulin Lispro (Admelog) 1 Unit/0.01 Ml Unit) 0 unit SC Q6HR [facility]; Protocol Stop: 10/10/24 05:59 Last Admin: 09/10/24 06:08 Dose: 1 unit Sodium Polystyrene Sulfonate (Sod Polystyrene Sulfon Susp 15 Gm/60 Ml Btl) 15 gm PO X1 ONE Stop: 09/10/24 08:38 Last Admin: 09/10/24 08:47 Dose: 15 gm Assessment & Plan Plan #Acute heart failure exacerbation #Acute hypoxic respiratory failure 2/2 to fluid overload #Hx of HFrEF EF 40% Assessment: Patient had prior echocardiogram with a EF 15%, recent repeat echocardiogram showed EF 40%. Etiology of the exacerbation likely due to fluid overload from renal insufficiency. Will continue carvedilol low-dose for GDMT, but due to concern for hypotension can also use midodrine to keep systolic pressure at least 100, and MAP above 60. Plan: - Monitor electrolytes, goal of K > 4 and Magnesium > 2 - DC lasix 40mg IV BID - start bumex 2mg IV BID - monitor In and Out - hold BP medications - Patient's care was discussed with my attending physician, Dr. Marcus Anders MD Internal Medicine PGY-3
[2024-09-10] MEDS: CEFEPIME INJ 1 GM in SODIUM CHLORIDE 0.9% (Popper) 50 ML IV ×2 (11:22→20:44)
[2024-09-10] MEDS: VANCOMYCIN/NS 1 GM IVPB 200 ML IV (11:33)
--- NOTE | 2024-09-10 15:00 | ESPR_ITS ---
<Statement entered by Kostas Estrada MD - 09/11/24 08:59> Senior Resident Attestation: I supervised/discussed management plan with leadership intern physician Dr. Gates, and was involved in the care of this patient. I personally saw and examined the patient and discussed the assessment and plan with the entire medicine team, including my attending. I agree with the assessment and plan as documented. Patient's care was discussed with attending physician, Dr. Raman. Kostas Estrada MD PGY-2. Documentation for date of: 09/10/24 Subjective Subjective Interval history: Patient is discharged on 09/09 and again got admitted on the same day for sudden onset of shortness of breath and low saturations noted on pulse oximetry Patient is seen and examined with his at the bedside in ED Stated that his shortness of breath improved after receiving medications in the hospital and reported that he is feeling well. Vitals are stable and patient is on high flow oxygen 1 dose of kayexalate is given for hyperkalemia and repeat potassium is ordered Started on cefepime and vancomycin in view of suspicion of HAP that could be the cause of exacerbation of CHF Exam Vital Signs Temp Pulse Resp BP Pulse Ox O2 Del Method O2 Flow Rate 97.9 F 60 17 114/62 96 High Flow Nasal Cannula 25 09/10/24 10:19 09/10/24 10:19 09/10/24 10:19 09/10/24 10:19 09/10/24 10:19 09/10/24 10:19 09/10/24 10:19 FiO2 60 09/10/24 10:19 Narrative Exam General: Awake. on high flow oxygen HEENT: Normocephalic, atraumatic, mucous membranes moist. Heart: Regular rate and rhythm, no murmurs. Lungs: Clear to auscultation with no wheezing. Fine crackles are heard on both sides Abdomen: Soft, nondistended, nontender, positive bowel sounds. ?No guarding or rebound tenderness. Neurologic: Alert and oriented x3, no gross neurological deficit, and patient able to move all 4 extremities. Extremities: No edema. 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 B/L BKA Skin: No rash or ecchymoses. Objective Labs 09/10/24 05:15 09/10/24 05:15 Labs: Laboratory Results - last 24 hr 09/10/24 09/10/24 09/10/24 01:26 01:28 05:15 WBC 11.5 H D 7.9 RBC 3.59 L 3.63 L Hgb 9.7 L 9.9 L Hct 30.9 L 31.0 L MCV 86 85 MCH 27.0 27.3 MCHC 31.4 31.9 RDW Std Deviation 61.8 H 60.7 H Plt Count 380 385 Neut % (Auto) 85 H 77 Lymph % (Auto) 7 L 14 [place] % (Auto) 5 7 Eos % (Auto) 2 2 Baso % (Auto) 0 0 Neut # (Auto) 9.8 H 6.1 Lymph # (Auto) 0.9 L 1.1 [place] # (Auto) 0.6 0.5 Eos # (Auto) 0.2 0.1 Baso # (Auto) 0.0 0.0 Immature Gran # (Auto) 0.05 H 0.04 H Absolute Nucleated RBC 0.00 0.00 Immature Gran % 0 1 H Nucleated RBC % 0 0 PT 11.3 INR 1.0 APTT 28.4 D-Dimer 1370 H Puncture Site Right Radial ABG pH 7.37 ABG pCO2 48 ABG pO2 55 L* ABG HCO3 28 H ABG O2 Saturation 88 L ABG Base Excess 2 FiO2 65 Sodium 139 139 Potassium 5.7 H D 5.3 H Chloride 103 103 Carbon Dioxide 28.4 27.2 Anion Gap 8 9 BUN 36 H 38 H Creatinine 2.4 H 2.3 H Estim Creat Clear Calc Not Performed. 25.4 L eGFR 29 L 31 L BUN/Creatinine Ratio 15 17 Glucose 217 H 166 H D Calculated Osmolality 292 290 Calcium 8.3 8.7 Corrected Calcium 8.7 9.1 Magnesium 2.6 2.4 Total Bilirubin 0.4 0.5 AST 20 18 ALT 11 12 Alkaline Phosphatase 83 78 Troponin I < 0.020 B-Natriuretic Peptide 1633 H* Total Protein 6.4 6.5 Albumin 3.5 3.5 Globulin 2.9 3.0 Albumin/Globulin Ratio 1.2 1.2 Urine Opiates Screen Urine Fentanyl Screen Ur Barbiturates Screen U Amphetamin/Meth Scrn U Benzodiazepines Scrn U Cocaine Metab Screen U Marijuana (THC) Screen 09/10/24 08:10 WBC RBC Hgb Hct MCV MCH MCHC RDW Std Deviation Plt Count Neut % (Auto) Lymph % (Auto) [place] % (Auto) Eos % (Auto) Baso % (Auto) Neut # (Auto) Lymph # (Auto) [place] # (Auto) Eos # (Auto) Baso # (Auto) Immature Gran # (Auto) Absolute Nucleated RBC Immature Gran % Nucleated RBC % PT INR APTT D-Dimer Puncture Site ABG pH ABG pCO2 ABG pO2 ABG HCO3 ABG O2 Saturation ABG Base Excess FiO2 Sodium Potassium Chloride Carbon Dioxide Anion Gap BUN Creatinine Estim Creat Clear Calc eGFR BUN/Creatinine Ratio Glucose Calculated Osmolality Calcium Corrected Calcium Magnesium Total Bilirubin AST ALT Alkaline Phosphatase Troponin I B-Natriuretic Peptide Total Protein Albumin Globulin Albumin/Globulin Ratio Urine Opiates Screen Negative Urine Fentanyl Screen Negative Ur Barbiturates Screen Negative U Amphetamin/Meth Scrn Negative U Benzodiazepines Scrn Negative U Cocaine Metab Screen Negative U Marijuana (THC) Screen Negative ABG Interpretation ABG results: 09/10/24 01:26 ABG pH 7.37 ABG pCO2 48 ABG pO2 55 L* ABG HCO3 28 H ABG O2 Saturation 88 L ABG Base Excess 2 Quality Measures Quality Measures none Advance care planning discussed with:: patient and spouse Assessment & Plan Assessment Current Active Medications: Generic Name Dose Route Start Last Admin Trade Name Freq PRN Reason Stop Dose Admin Acetaminophen 650 mg 09/10/24 04:54 Acetaminophen 325 Mg Tablet PO 10/10/24 04:53 Q6H PRN Fever >101.5 Acetaminophen 650 mg 09/10/24 04:54 Acetaminophen 325 Mg Tablet PO 10/10/24 04:53 Q6H PRN PAIN SCALE 1-3 (mild Amiodarone HCl 200 mg 09/10/24 09:00 09/10/24 08:48 Amiodarone Hcl 200 Mg Tablet PO 10/10/24 08:59 200 mg QDAY KENNY Administration Apixaban 2.5 mg 09/10/24 09:00 09/10/24 08:48 Apixaban 2.5 Mg Tablet PO 10/10/24 08:59 2.5 mg BID KENNY Administration Aspirin 81 mg 09/10/24 09:00 09/10/24 08:48 Aspirin Ec 81 Mg Tabec PO 10/10/24 08:59 81 mg QDAY KENNY Administration Dextrose 25 ml 09/10/24 05:50 Dextrose 50%-Water Inj 50 Ml Syringe IV 10/10/24 05:49 Q15MIN PRN BG 50-70 responsive npo pt Dextrose 50 ml 09/10/24 05:50 Dextrose 50%-Water Inj 50 Ml Syringe IV 10/10/24 05:49 Q15MIN PRN BG <50 OR BG <70 & pt unresponsive Furosemide 40 mg 09/10/24 09:00 09/10/24 08:48 Furosemide Inj 10 Mg/Ml 4ml Vial IVP 10/10/24 08:59 40 mg BIDD KENNY Administration Gabapentin 300 mg 09/10/24 09:00 09/10/24 08:47 Gabapentin 300 Mg Capsule PO 10/10/24 08:59 300 mg QDAY KENNY Administration Glucagon 1 mg 09/10/24 05:50 Glucagon Inj 1 Mg Vial IM Q15MIN PRN BG <70, and no IV access Cefepime HCl 1 gm/ Sodium 50 mls @ 100 mls/hr 09/10/24 10:56 09/10/24 11:22 Chloride IV 09/17/24 10:55 100 mls/hr Q12HR KENNY Administration Insulin Human Lispro 0 unit 09/10/24 11:30 09/10/24 11:27 Insulin Lispro (Admelog) 1 Unit/0.01 Ml Unit SC 10/10/24 11:29 Not Given ACHS KENNY Protocol Midodrine 5 mg 09/10/24 05:07 Midodrine 5 Mg Tablet PO 10/10/24 05:59 TID PRN SBP <100 or DBP< 65 Pharmacy Consult 1 each 09/11/24 09:00 Vancomycin Pharmacy To Dose 1 Each Each IV 10/11/24 08:59 QDAY KENNY Tamsulosin HCl 0.4 mg 09/10/24 21:00 Tamsulosin Hcl 0.4 Mg Capsule PO 10/10/24 20:59 HS KENNY Plan The patient is a 64-year-old male with significant past medical history of primary hypertension, insulin-dependent diabetes mellitus, hyperlipidemia, CKD stage IIIb, HFrEF with LVEF 40% 2 weeks ago, CAD s/p PCI, history of cardiac arrest s/p ROSC, 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 #Acute hypoxic respiratory failure / #Pulmonary edema / #Acute exacerbation of HFrEF # Suspicion of underlying pneumonia, as patient had prolonged hospital stay -Patient is discharged on 09/09/2024 and again admitted on the same day for shortness of breath -Patient presented with SOB, was found to have hypoxic saturating 70s in his facility -Chest x-ray significant for pulmonary edema, last echo done 2 weeks ago was revealing LVEF of 40% and moderate mitral regurgitation. -Patient received 40 Mg IV Lasix in the ED and was started on high flow nasal cannula -BNP is 1633, troponin < 0.02 -Repeat echo showed EF of 35% with moderate TR, moderate MR and left pleural effusion Plan -Continue on high flow nasal cannula for now, taper down oxygen as tolerated -Started on cefepime and vancomycin [09/10-, in view of recent hospital admission -Started on Lasix 40 Mg IV twice daily -Strict ins and outs -Fluid restriction to 1500 cc/day -Midodrine 5mg TID to maintain SBP>100 and DBP >65 #Hyperkalemia, resolving Presented with potassium of 5.7, down trended to 5.3 Plan -1 dose of potassium Kayexalate is given -Repeat potassium is ordered, will follow-up with results and treat accordingly #Insulin-dependent diabetes mellitus -Started on sliding scale insulin lispro every 6 hourly #CKD stage IIIb -Renal functions appears to be stable for now -Avoid nephrotoxic medications and renally dose medications #Hypertension #Hyperlipidemia #CAD s/p stents -Started on aspirin 81 Mg daily -Blood pressure currently stable, we will hold on carvedilol 3.375 Mg twice daily for now -Continue to monitor # History of paroxysmal A-fib Patient has history of A-fib -Started on home dose of amiodarone 200 Mg daily and Eliquis -Maintain potassium level greater than 4 and magnesium level greater than 2 Health maintenance: Dispo: Telemetry Diet: Renal, carb consistent diet DVT prophylaxis: On Eliquis 2.5 Mg twice daily CODE STATUS: Full code Patient plan of care was discussed with the attending physician, Dr. Raman and senior resident Dr. Natalie Gates, PGY1 Attending Provider Attestation/Addendum I reviewed labs, imaging, EKG, home medications and prior available records. Face to face evaluation was performed by me. I have personally examined the patient and discussed assessment and plan with the IM team. I reviewed the resident note and agree with the plan with exceptions as below. Acute hypoxic respiratory failure CKD stage IIIb Hospital-acquired pneumonia Acute exacerbation of HFpEF Trigger of the patient's symptoms is unclear but may be related to hospital- acquired pneumonia versus CHF exacerbation. Started IV Lasix. Monitor I's and O's Started vancomycin/cefepime. Send blood and sputum cultures Monitor kidney function. Avoid nephrotoxins. Renally dosed medications
[2024-09-10 17:13] LABS: Potassium 4.8 mMol/L (3.4-5.1)
[2024-09-10] MEDS: TAMSULOSIN HCL 0.4 MG CAPSULE PO (20:44)
[2024-09-10] MEDS: BUMETANIDE INJ 0.25 MG/ML VIAL 4 ML 2 MG IVP (20:44)
[2024-09-11] VITALS (13 sets, daily range): BP systolic 98–123; BP diastolic 59–66; PULSE 57–70; RESP 19–25; TEMP 36.4–36.6; O2SAT 95–98; BMI 22.6; BMI 21.0
[2024-09-11 05:41] LABS: Base Excess, Venous 6 (-3-3); O2 Saturation, Venous 84 % (96-97); PCO2, Venous 43 mmHg (36-56); PO2, Venous 47 mmHg (15-58); pH, Venous 7.46 (7.33-7.66)
[2024-09-11 05:50] LABS: Basophils % (Auto) 0 % (0-2.5); Eosinophils # (Auto) 0.2 Thou/mm3 (0.0-0.5); Eosinophils % (Auto) 3 % (0-10); Hematocrit 28.8 % (41.0-53.0); Hemoglobin 8.9 g/dL (13.5-16.0); Immature Granulocytes % (Auto) 0 % (0-0); Immature Granulocytes Auto 0.03 Thou/mm3 (0.00-0.00); Lymphocytes # (Auto) 1.5 Thou/mm3 (1.0-4.8); Lymphocytes % (Auto) 23 % (10-50); Mean Corpuscular HGB Conc 30.9 g/dl (31.0-37.0); Mean Corpuscular Hemoglobin 26.6 pg (25.0-35.0); Mean Corpuscular Volume 86 fL (80-100); Monocytes # (Auto) 0.7 Thou/mm3 (0.0-0.8); Monocytes % (Auto) 11 % (0-12); Neutrophils # (Auto) 4.2 Thou/mm3 (1.8-7.7); Neutrophils % (Auto) 63 % (37-80); Nucleated Red Blood Cell % 0 /100 WBC (0); Platelet Count 400 Thou/mm3 (140-440); RDW Standard Deviation 61.3 fL (35.1-43.9); Red Blood Count 3.35 Miln/mm3 (4.50-5.90); White Blood Count 6.7 Thou/mm3 (3.8-10.6)
[2024-09-11 06:40] LABS: Alanine Aminotransferase 9 U/L (10-49); Albumin, Serum 3.1 gm/dL (3.4-4.8); Albumin/Globulin Ratio 1.1 (1.2-2.2); Alkaline Phosphatase 73 U/L (46-116); Anion Gap 9 (7-16); Aspartate Amino Transferase 22 U/L (0-34); BUN/Creatinine Ratio 16 Ratio (12-20); Bilirubin,Total 0.4 mg/dL (0.3-1.2); Blood Urea Nitrogen 38 mg/dL (9-23); Calcium 8.2 mg/dL (8.3-10.6); Calcium (Corrected) 8.9 mg/dL (8.5-10.1); Carbon Dioxide 27.2 mMol/L (20.0-31.0); Chloride 103 mMol/L (98-107); Creatinine (Component) 2.4 mg/dL (0.6-1.3); Estimated Creatinine Clearance 24.4 mL/min (>60); Globulin 2.8 gm/dL (2.3-3.5); Glucose 144 mg/dL (74-106); Magnesium 2.1 mg/dL (1.6-2.6); Osmolality,Calculated 289 (275-295); Phosphorous 4.3 mg/dL (2.4-5.1); Potassium 4.9 mMol/L (3.4-5.1); Sodium 139 mMol/L (136-145); Total Protein 5.9 gm/dL (5.7-8.2); eGFR 29 See Note
--- NOTE | 2024-09-11 07:51 | XR_ITS ---
Examination: AP chest single view Technique one AP portable upright chest single view Exam date and time: September 11, 2024 0800 hours Comparison September 10, 2024 INDICATIONS: Coughing congestion this week pneumonia FINDINGS: Extensive bilateral pneumonia remains Normal heart size Reduced inspiratory effort IMPRESSION: Extensive bilateral pneumonia
[2024-09-11] MEDS: CEFEPIME INJ 1 GM in SODIUM CHLORIDE 0.9% (Popper) 50 ML IV (09:21)
[2024-09-11] MEDS: ASPIRIN EC 81 MG TABEC PO (09:22)
[2024-09-11] MEDS: APIXABAN 2.5 MG TABLET PO ×2 (09:22→20:38)
[2024-09-11] MEDS: AMIODARONE HCL 200 MG TABLET PO (09:22)
[2024-09-11] MEDS: BUMETANIDE INJ 0.25 MG/ML VIAL 4 ML 2 MG IVP ×2 (09:23→20:37)
--- NOTE | 2024-09-11 09:55 | PC.DIETICIAN ---
Addendum entered by Fletcher Busch RD 09/11/24 09:57: RD recommendation: consider adding Vitamin C 250mg BID daily, Zinc 220mg [id number], Nephrovite daily Thank you! Original Note: RD recommendation: consider Vitamin C 500mg BID daily, zinc 220mg [id number], Multivitamin-Mineral daily. Thank you!
--- NOTE | 2024-09-11 10:25 | PC.SS ---
Addendum entered by Sarah Beth Arias 09/11/24 14:56: SS informed by BASIL Flo patient's spouse Shreya at bedside requesting to speak to SS. SS attempted to contact patient's spouse Shreya via telephone [phone] due to her no longer being at bedside. SS left message requesting return call. Addendum entered by Sarah Beth Arais 09/11/24 14:51: SS rounding note: Patient is staying, pending stomach closure due to ileostomy bag. Addendum entered by Sarah Beth Arias 09/11/24 10:56: SNF referrals submitted via [facility], pending responses. PASRR from 09/01/24 included with referral. SS requested SNFs notify SS if a new PASRR needs to be completed. Original Note: SS met with patient at bedside to confirm discharge plan. Patient requesting [facility] due to current SNF not offering private transportation to medical appointments. Patient declined receiving outpatient dialysis services. SS explained to patient it may be a challenge to find a new SNF for snf care. Patient stated he would only be at SNF for 3-4months. SS also informed patient may need insurance authorization depending on length of stay at [facility], patient nodded in acknowledgement. SS to submit referrals on [facility]. SS informed by LESLIE Garcia patient is requesting a new SNF, [facility].
[2024-09-11] MEDS: INSULIN LISPRO (AdmeLOG) 1 UNIT/0.01 ML UNIT SC ×3 (11:27→20:37)
--- NOTE | 2024-09-11 14:45 | ESPR_ITS ---
<Statement entered by Kostas Estrada MD - 09/12/24 09:09> Senior Resident Attestation: I supervised/discussed management plan with international nurse physician Dr. Gates, and was involved in the care of this patient. I personally saw and examined the patient and discussed the assessment and plan with the entire medicine team, including my attending. I agree with the assessment and plan as documented. Patient's care was discussed with attending physician, Dr. Canchola. Kostas Estrada MD PGY-2. Documentation for date of: 09/11/24 Subjective Subjective Interval history: Patient is seen and examined at bedside Still on high flow, 20 L/min, 45% FiO2. No acute overnight events. Denies any other complaints and reported that he is getting better Vitals are stable. On physical examination, bilateral fine crackles are heard Labs showed WBC 6.7, BUN 38, creatinine 2.4 . Repeat chest x-ray showed significant improvement Discontinued antibiotics as there is low suspicion of infection in view of normal WBC count, no history of fever Exam Vital Signs Temp Pulse Resp BP Pulse Ox O2 Del Method O2 Flow Rate 97.6 F 62 23 H 108/62 96 High Flow Nasal Cannula 20 09/11/24 08:00 09/11/24 12:00 09/11/24 12:00 09/11/24 09:23 09/11/24 12:00 09/11/24 08:00 09/11/24 12:00 FiO2 45 09/11/24 12:00 Narrative Exam General: Awake. on high flow oxygen HEENT: Normocephalic, atraumatic, mucous membranes moist. Heart: Regular rate and rhythm, no murmurs. Lungs: Clear to auscultation with no wheezing. Fine crackles are heard on both sides Abdomen: Soft, nondistended, nontender, positive bowel sounds. ?No guarding or rebound tenderness. Neurologic: Alert and oriented x3, no gross neurological deficit, and patient able to move all 4 extremities. Extremities: No edema. 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 B/L BKA Skin: No rash or ecchymoses. Objective Labs 09/12/24 04:59 09/12/24 04:59 Labs: Laboratory Results - last 24 hr 09/10/24 09/11/24 16:07 05:30 WBC 6.7 RBC 3.35 L Hgb 8.9 L Hct 28.8 L MCV 86 MCH 26.6 MCHC 30.9 L RDW Std Deviation 61.3 H Plt Count 400 Neut % (Auto) 63 Lymph % (Auto) 23 [place] % (Auto) 11 Eos % (Auto) 3 Baso % (Auto) 0 Neut # (Auto) 4.2 Lymph # (Auto) 1.5 [place] # (Auto) 0.7 Eos # (Auto) 0.2 Baso # (Auto) 0.0 Immature Gran # (Auto) 0.03 H Absolute Nucleated RBC 0.00 Immature Gran % 0 Nucleated RBC % 0 VBG pH 7.46 VBG pCO2 43 VBG pO2 47 VBG O2 Sat (Catherine) 84 L VBG Base Excess 6 H Sodium 139 Potassium 4.8 D 4.9 Chloride 103 Carbon Dioxide 27.2 Anion Gap 9 BUN 38 H Creatinine 2.4 H Estim Creat Clear Calc 24.4 L eGFR 29 L BUN/Creatinine Ratio 16 Glucose 144 H Calculated Osmolality 289 Calcium 8.2 L Corrected Calcium 8.9 Phosphorus 4.3 Magnesium 2.1 Total Bilirubin 0.4 AST 22 ALT 9 L Alkaline Phosphatase 73 Total Protein 5.9 Albumin 3.1 L Globulin 2.8 Albumin/Globulin Ratio 1.1 L ABG Interpretation ABG results: 09/10/24 09/11/24 01:26 05:30 ABG pH 7.37 ABG pCO2 48 ABG pO2 55 L* ABG HCO3 28 H ABG O2 Saturation 88 L ABG Base Excess 2 VBG pH 7.46 VBG pCO2 43 VBG pO2 47 VBG Base Excess 6 H Quality Measures Quality Measures none Advance care planning discussed with:: patient Assessment & Plan Assessment Current Active Medications: Generic Name Dose Route Start Last Admin Trade Name Freq PRN Reason Stop Dose Admin Acetaminophen 650 mg 09/10/24 04:54 Acetaminophen 325 Mg Tablet PO 10/10/24 04:53 Q6H PRN Fever >101.5 Acetaminophen 650 mg 09/10/24 04:54 Acetaminophen 325 Mg Tablet PO 10/10/24 04:53 Q6H PRN PAIN SCALE 1-3 (mild Amiodarone HCl 200 mg 09/10/24 09:00 09/11/24 09:22 Amiodarone Hcl 200 Mg Tablet PO 10/10/24 08:59 200 mg QDAY KENNY Administration Apixaban 2.5 mg 09/10/24 09:00 09/11/24 09:22 Apixaban 2.5 Mg Tablet PO 10/10/24 08:59 2.5 mg BID KENNY Administration Aspirin 81 mg 09/10/24 09:00 09/11/24 09:22 Aspirin Ec 81 Mg Tabec PO 10/10/24 08:59 81 mg QDAY KENNY Administration Bumetanide 2 mg 09/10/24 21:00 09/11/24 09:23 Bumetanide Inj 0.25 Mg/Ml Vial 4 Ml IVP 10/10/24 20:59 2 mg BID KENNY Administration Dextrose 25 ml 09/10/24 05:50 Dextrose 50%-Water Inj 50 Ml Syringe IV 10/10/24 05:49 Q15MIN PRN BG 50-70 responsive npo pt Dextrose 50 ml 09/10/24 05:50 Dextrose 50%-Water Inj 50 Ml Syringe IV 10/10/24 05:49 Q15MIN PRN BG <50 OR BG <70 & pt unresponsive Gabapentin 300 mg 09/10/24 09:00 09/11/24 09:24 Gabapentin 300 Mg Capsule PO 10/10/24 08:59 Not Given QDAY KENNY Glucagon 1 mg 09/10/24 05:50 Glucagon Inj 1 Mg Vial IM Q15MIN PRN BG <70, and no IV access Insulin Human Lispro 0 unit 09/10/24 11:30 09/11/24 11:27 Insulin Lispro (Admelog) 1 Unit/0.01 Ml Unit SC 10/10/24 11:29 2 unit ACHS KENNY Administration Protocol Midodrine 5 mg 09/10/24 05:07 Midodrine 5 Mg Tablet PO 10/10/24 05:59 TID PRN SBP <100 or DBP< 65 Tamsulosin HCl 0.4 mg 09/10/24 21:00 09/10/24 20:44 Tamsulosin Hcl 0.4 Mg Capsule PO 10/10/24 20:59 0.4 mg HS KENNY Administration Plan The patient is a 64-year-old male with significant past medical history of primary hypertension, insulin-dependent diabetes mellitus, hyperlipidemia, CKD stage IIIb, HFrEF with LVEF 40% 2 weeks ago, CAD s/p PCI, history of cardiac arrest s/p ROSC, 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 #Acute hypoxic respiratory failure 2/2 #Pulmonary edema 2/2 #Acute exacerbation of HFrEF # Likely from fluid overload -Patient is discharged on 09/09/2024 and again admitted on the same day for shortness of breath -Patient presented with SOB, was found to have hypoxic saturating 70s in his facility -Chest x-ray significant for pulmonary edema, last echo done 2 weeks ago was revealing LVEF of 40% and moderate mitral regurgitation. -Patient received 40 Mg IV Lasix in the ED and was started on high flow nasal cannula -BNP is 1633, troponin < 0.02 -Repeat echo showed EF of 35% with moderate TR, moderate MR and left pleural effusion Plan -Continue on high flow nasal cannula for now, taper down oxygen as tolerated -Discontinued antibiotics, in view of low suspicion of pneumonia -Started on Lasix 40 Mg IV twice daily -Strict ins and outs -Fluid restriction to 1500 cc/day -Midodrine 5mg TID to maintain SBP>100 and DBP >65 #Hyperkalemia, resolved -Potassium as of 09/11/2024 is 4.9 -Will continue to monitor potassium and treat accordingly #Insulin-dependent diabetes mellitus -Started on sliding scale insulin lispro ACHS #CKD stage IIIb -Renal functions appears to be stable for now -Avoid nephrotoxic medications and renally dose medications #Hypertension #Hyperlipidemia #CAD s/p stents -Started on aspirin 81 Mg daily -Blood pressure currently stable, we will hold on carvedilol 3.375 Mg twice daily for now -Continue to monitor # History of paroxysmal A-fib Patient has history of A-fib -Started on home dose of amiodarone 200 Mg daily and Eliquis -Maintain potassium level greater than 4 and magnesium level greater than 2 Health maintenance: Dispo: Telemetry Diet: Renal, carb consistent diet DVT prophylaxis: On Eliquis 2.5 Mg twice daily CODE STATUS: Full code Patient plan of care was discussed with the attending physician, Dr. Canchola and senior resident Dr. Natalie Gates, PGY1 Attending Provider Attestation/Addendum Face to face evaluation was performed by me. I have personally seen and examined the patient. I discussed the assessment and plan with the entire medicine team. I reviewed available medical records, imaging studies, laboratory results. I agree with the above subjective data, objective findings, assessment and plan except as corrected by me or noted below #Acute hypoxic respiratory failure with pulmonary edema, 2/2 below #Pulmonary edema 2/2 below #Acute exacerbation of HFrEF -Continue with IV diuresis, high flow nasal cannula wean oxygen as able. Patient was on antibiotics, does not look like bacterial pneumonia so we will probably stop antibiotics. Continue with systemic anticoagulation other appropriate medications as ordered. More than > 30 minutes spent on the encounter
--- NOTE | 2024-09-11 15:15 | PC.SS ---
Addendum entered by Sarah Beth Arias 09/11/24 16:05: Referral to [facility] submitted via [facility], pending response. Original Note: SS received call from patient?s spouse Shreya, she explained she is wanting [facility] or [facility] for patient to discharge to. SS informed patient?s spouse referrals were submitted to SNFs and responses were pending. SS explained to patient?s spouse clarification for [facility] referral would be obtained and she would be contacted. SNF ref[facility] to [facility], , [facility], and [facility]. Addendum entered by Sarah Beth Arias 09/11/24 14:56: SS informed by BASIL Rossi patient's spouse Shreya at bedside requesting to speak to SS. SS attempted to contact patient's spouse Shreya via telephone [phone] due to her no longer being at bedside. SS left message requesting return call. Addendum entered by Sarah Beth Arias 09/11/24 10:56: SNF referrals submitted via [facility], pending responses. PASRR from 09/01/24 included with referral. SS requested SNFs notify SS if a new PASRR needs to be completed. Original Note: SS met with patient at bedside to confirm discharge plan. Patient requesting [facility] due to current SNF not offering private transportation to medical appointments. Patient declined receiving outpatient dialysis services. SS explained to patient it may be a challenge to find a new SNF for [facility] care. Patient stated he would only be at SNF for 3-4months. SS also informed patient may need insurance authorization depending on length of stay at [facility], patient nodded in acknowledgement. SS to submit referrals on [facility]. SS informed by LESLIE Garcia patient is requesting a new SNF, [facility].
[2024-09-11] MEDS: TAMSULOSIN HCL 0.4 MG CAPSULE PO (20:38)
[2024-09-12] VITALS (8 sets, daily range): BP systolic 112–123; BP diastolic 59–75; PULSE 57–67; RESP 18–19; TEMP 36.1–36.2; O2SAT 93–97; BMI 21.0
[2024-09-12 05:42] LABS: Basophils % (Auto) 1 % (0-2.5); Eosinophils # (Auto) 0.2 Thou/mm3 (0.0-0.5); Eosinophils % (Auto) 3 % (0-10); Hematocrit 28.9 % (41.0-53.0); Hemoglobin 9.2 g/dL (13.5-16.0); Immature Granulocytes % (Auto) 1 % (0-0); Immature Granulocytes Auto 0.03 Thou/mm3 (0.00-0.00); Lymphocytes # (Auto) 1.8 Thou/mm3 (1.0-4.8); Lymphocytes % (Auto) 29 % (10-50); Mean Corpuscular HGB Conc 31.8 g/dl (31.0-37.0); Mean Corpuscular Hemoglobin 27.3 pg (25.0-35.0); Mean Corpuscular Volume 86 fL (80-100); Monocytes # (Auto) 0.7 Thou/mm3 (0.0-0.8); Monocytes % (Auto) 11 % (0-12); Neutrophils # (Auto) 3.5 Thou/mm3 (1.8-7.7); Neutrophils % (Auto) 56 % (37-80); Nucleated Red Blood Cell % 0 /100 WBC (0); Platelet Count 378 Thou/mm3 (140-440); RDW Standard Deviation 59.8 fL (35.1-43.9); Red Blood Count 3.37 Miln/mm3 (4.50-5.90); White Blood Count 6.2 Thou/mm3 (3.8-10.6)
[2024-09-12 06:40] LABS: Alanine Aminotransferase 8 U/L (10-49); Albumin, Serum 3.1 gm/dL (3.4-4.8); Albumin/Globulin Ratio 1.1 (1.2-2.2); Alkaline Phosphatase 68 U/L (46-116); Anion Gap 9 (7-16); Aspartate Amino Transferase 13 U/L (0-34); BUN/Creatinine Ratio 18 Ratio (12-20); Bilirubin,Total 0.4 mg/dL (0.3-1.2); Blood Urea Nitrogen 42 mg/dL (9-23); Calcium 8.1 mg/dL (8.3-10.6); Calcium (Corrected) 8.8 mg/dL (8.5-10.1); Carbon Dioxide 27.9 mMol/L (20.0-31.0); Chloride 100 mMol/L (98-107); Creatinine (Component) 2.4 mg/dL (0.6-1.3); Globulin 2.7 gm/dL (2.3-3.5); Glucose 96 mg/dL (74-106); Magnesium 1.8 mg/dL (1.6-2.6); Osmolality,Calculated 284 (275-295); Phosphorous 4.2 mg/dL (2.4-5.1); Potassium 4.2 mMol/L (3.4-5.1); Sodium 137 mMol/L (136-145); Total Protein 5.8 gm/dL (5.7-8.2); eGFR 29 See Note
[2024-09-12] MEDS: ASPIRIN EC 81 MG TABEC PO (08:21)
[2024-09-12] MEDS: AMIODARONE HCL 200 MG TABLET PO (08:21)
[2024-09-12] MEDS: APIXABAN 2.5 MG TABLET PO (08:21)
[2024-09-12] MEDS: BUMETANIDE INJ 0.25 MG/ML VIAL 4 ML 2 MG IVP (08:22)
[2024-09-12] MEDS: carVEDILOL 3.125 MG TABLET PO (10:32)
--- NOTE | 2024-09-12 11:01 | PC.SS ---
Addendum entered by Silvia Sykes 09/12/24 13:12: SS follow up note; SS met with patient at bedside to discuss discharge plan, SS informed him that all facilities were declining him, SS also contacted patient's , and they verbalized understanding, patient agreeable to return back to [facility]. SS contacted [facility] services, they will contact SS with ETA. Original Note: Patient is pending acceptance at [facility], Patient does not want to return to [facility], Auth has been obtained from [facility]. SS met with patient at bedside, Patient upset and stated he will not return to [facility], SS contacted patient's , Katelyn and she informed SS to expand the search. SS expanded the search to, however Facilities are declining patient. SS will stand by for further needs.
--- NOTE | 2024-09-12 13:59 | PD.RESDS ---
Planned Discharge Date 09/12/24 DS: Providers Provider Date of admission: 09/10/24 04:54 Primary care physician: Alfa Le MD Admitting Provider: Carey Miller MD Attending Provider on Admission: Bradley Canchola MD Consults: 09/10/24 15:52 Consult to Cardiology Routine Comment: Acute Pulmonary edema Consulting Provider: Janee Velazquez 09/11/24 00:51 Referral Wound Care Routine Comment: readnut from snf with wound to coccyx and stump 09/11/24 00:55 Referral Nutritional Services Routine Comment: pressure wound 09/12/24 10:29 Referral Physical Therapy Stat Comment: Physician Instructions: Attending Provider on DC: Atul Gates MD Discharging Provider: Atul Gates MD DS: Diagnosis Problem List Completed Was Problem List Reviewed/Reconciled?: Yes Hospital Course Hospital Course Hospital course: A 64-year-old male with significant past medical history of primary hypertension, insulin-dependent diabetes mellitus, hyperlipidemia, CKD stage IIIb, HFrEF with LVEF 40% 2 weeks ago, CAD s/p PCI, history of cardiac arrest s/p ROSC, 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 Chest x-ray done at the time of admission showed bilateral moderate to severe pulm vascular congestion. Labs done during this admission showed mild anemia, creatinine 2.4 which is his baseline renal functions. Echo done showed Ischemic cardiomyopathy with old anterior apical and septal myocardial infarction LVEF 35%. LA is moderately dilated. Moderate mitral regurgitation, tricuspid regurgitation. Left pleural effusion is present. 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 Velazquez was consulted and recommended to continue diuresis. Patient was given IV Bumex during the hospital stay. Patient is discharged to SNF with following medications and recommendations -Follow-up with PCP within 1 week of discharge. If you do not have appointment, please follow-up with the [facility] with Dr. Gates. Call [phone] to make an appointment. -Follow up with Dr. Rudolph for the follow up on prosthesis -Start Jardiance 10 Mg p.o. daily, Eliquis 2.5 Mg p.o. twice daily, aspirin 81 Mg p.o. daily -Continue amiodarone, carvedilol, midodrine, tamsulosin -Bumex dose is changed from 0.5-1 Mg p.o. daily -Recommended salt and fluid restriction. -Return to ED if symptoms persist or return Patient plan of care was discussed with the attending physician, Dr. Raman and senior resident Dr. Natalie Gates, PGY1 Time Spent with Patient Time attestation: Total time spent providing and/or coordinating discharge services: Time spent: Greater than 30 minutes Exam Vital Signs Temp Pulse Resp BP Pulse Ox O2 Del Method O2 Flow Rate 97.1 F 58 L 18 123/75 93 L Nasal Cannula 2 09/12/24 12:00 09/12/24 13:42 09/12/24 13:42 09/12/24 12:00 09/12/24 13:42 09/12/24 12:00 09/12/24 12:00 FiO2 45 09/12/24 12:00 Narrative Exam General: Awake. on high flow oxygen HEENT: Normocephalic, atraumatic, mucous membranes moist. Heart: Regular rate and rhythm, no murmurs. Lungs: Clear to auscultation with no wheezing. Fine crackles are heard on both sides Abdomen: Soft, nondistended, nontender, positive bowel sounds. ?No guarding or rebound tenderness. Neurologic: Alert and oriented x3, no gross neurological deficit, and patient able to move all 4 extremities. Extremities: No edema. 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 B/L BKA Skin: No rash or ecchymoses. Discharge Plan Plan Patient Disposition: [facility] (SNF) Patient condition on transfer: Stable Care Plan Goals: -Follow-up with PCP within 1 week of discharge. If you do not have appointment, please follow-up with the [facility] with Dr. Gates. Call [phone] to make an appointment. -Follow up with Dr. Rudolph for the follow up on prosthesis -Start Jardiance 10 Mg p.o. daily, Eliquis 2.5 Mg p.o. twice daily, aspirin 81 Mg p.o. daily -Continue amiodarone, carvedilol, midodrine, tamsulosin -Bumex dose is changed from 0.5-1 Mg p.o. daily -Recommended salt and fluid restriction. -Return to ED if symptoms persist or return Prescriptions/Referrals Prescriptions/Med Rec: New aspirin [Ecotrin Low Strength] 81 mg Tablet,Delayed Release (Dr/Ec) 81 mg PO QDAY Qty: 30 0RF Eliquis 2.5 mg Tablet 2.5 mg PO BID Qty: 60 0RF Jardiance 10 mg tablet 10 mg PO QAM Qty: 30 0RF Continued bisacodyl [Dulcolax (bisacodyl)] 10 mg suppository 10 mg AR QDAY PRN (Reason: constipation) Rx Instructions: IF MOM IS INEFFECTIVE AND NO BM FOR 8 HRS amiodarone 200 mg Tablet 200 mg PO QDAY Qty: 90 0RF carvedilol 3.125 mg Tablet 3.125 mg PO BIDWM Qty: 90 0RF tamsulosin 0.4 mg Capsule 0.4 mg PO HS Qty: 60 0RF midodrine 5 mg Tablet 5 mg PO TID PRN (Reason: SBP < 100 or MAP < 65) Qty: 30 0RF alum-mag hydroxide-simeth [Mag-Al Plus] 200-200-20 mg/5 mL Suspension 30 ml PO Q4HR PRN (Reason: Heartburn or Upset Stomach) Qty: 3000 0RF Changed bumetanide 0.5 mg tablet 1 mg PO QDAY Qty: 90 0RF Discontinued sodium citrate-citric acid [Cytra-2] 500-334 mg/5 mL solution 30 ml PO BID magnesium hydroxide [Milk of Magnesia] 400 mg/5 mL suspension 30 ml PO Q24H PRN (Reason: constipation) insulin lispro [Admelog SoloStar U-100 Insulin] 100 unit/mL insulin pen 1 sliding scale dose subcut USEASDIRECTD Rx Instructions: subcutaneously use as directed; sodium phosphates 19-7 gram/118 mL enema 118 ml AR QDAY PRN (Reason: constipation) Rx Instructions: IF MOM AND DULOLAX SUPP ARE INEFFECTVE AND NO BM FOR 8 HRS. No Action acetaminophen 325 mg tablet 650 mg PO Q4H PRN (Reason: fever or pain) Referrals: Alfa Le MD [Primary Care Provider] - Patient/Caregiver Discharge Instructions Discharge Activity: activity as tolerated Education Materials: Pulmonary Edema, Residual Limb Care Print Language: Beninese Stand Alone Forms: [employer] Award Info., Patient Portal Info Letter Discharge Order Discharge Orders: Discharge (Routine); Ordered 09/12/24 Ordered By: Atul Gates Quality Discharge Quality Measures VTE prophylaxis MD Attestestation MD Attestation Face to face evaluation was performed by me. I have personally seen and examined the patient. I discussed the assessment and plan with the entire medicine team. I reviewed available medical records, imaging studies, laboratory results. I agree with the above subjective data, objective findings, assessment and plan except as corrected by me or noted below #Acute hypoxic respiratory failure with pulmonary edema, 2/2 below #Pulmonary edema 2/2 below #Acute exacerbation of HFrEF - Patient hypoxemia resolved, he is feeling better, was given IV diuresis plan to discharge on p.o. bumetanide with increased dosage from 0.5 mg to 1 mg daily. MD to follow at facility and continue to adjust diuretics. More than > 30 minutes spent on the encounter
--- NOTE | 2024-09-12 14:18 | PC.SS ---
SS follow up note; [facility] with be providing transportation for patient at 3PM. SS informed patient as well as patient's nurse Gaudencio from [employer].
--- NOTE | 2024-09-12 14:30 | PC.NURSE ---
Report given to Phil NELSON via telephone.
--- NOTE | 2024-09-12 14:44 | PC.PT ---
PT eval received. Patient is set up to leave to go back to SNF in ~15mins. Will cancel PT evaluation.
--- NOTE | 2024-09-12 14:58 | PC.NURSE ---
Patient provided incentive spirometer along with education on how to use device. Patient verbalizes understanding.
== END 2024-09-12 15:10 | disposition skilled nursing facility (03) | DRG 291 ==
LOC: SERX 04:20 → SERHOLD 06:12 → S2NX 15:52
PROVIDERS: Emergency Medicine; Student in an Organized Health Care Education/Training Program; Admitting Provider Student in an Organized Health Care Education/Training Program; Emergency Provider Student in an Organized Health Care Education/Training Program; PCP Family Medicine; Visit Provider Internal Medicine
DX: I13.0 Hypertensive heart and chronic kidney disease with heart failure and stage 1 through stage 4 chronic kidney disease, or unspecified chronic kidney disease (principal); I50.43 Acute on chronic combined systolic (congestive) and diastolic (congestive) heart failure; J96.01 Acute respiratory failure with hypoxia; R57.0 Cardiogenic shock; J18.9 Pneumonia, unspecified organism; N39.0 Urinary tract infection, site not specified; N18.32 Chronic kidney disease, stage 3b; E11.22 Type 2 diabetes mellitus with diabetic chronic kidney disease; I25.10 Atherosclerotic heart disease of native coronary artery without angina pectoris; I48.0 Paroxysmal atrial fibrillation; E78.5 Hyperlipidemia, unspecified; I34.0 Nonrheumatic mitral (valve) insufficiency; E87.5 Hyperkalemia; D63.1 Anemia in chronic kidney disease; Z95.5 Presence of coronary angioplasty implant and graft; Z86.74 Personal history of sudden cardiac arrest; Z89.511 Acquired absence of right leg below knee; Z79.4 Long term (current) use of insulin; Z89.512 Acquired absence of left leg below knee; Y95 Nosocomial condition; Z79.899 Other long term (current) drug therapy; I25.5 Ischemic cardiomyopathy
CPT/HCPCS: 36415; 36600; 71045; 80053; 80307; 82803; 83735; 83880; 84100; 84132; 84484; 85025; 85379; 85610; 85730; 87081; 87811; 93005; 93306; 96365; 96372; 99285; J0692; J1815; J1940; J3370; J3490; J7050; A9270

== ENCOUNTER 2024-11-14 15:47 | Emergency (ER) | payer OTHER, MEDICARE, SELFPAY ==
[2024-11-14] VITALS (12 sets, daily range): BP systolic 93–122; BP diastolic 52–61; PULSE 52–72; RESP 12–20; TEMP 36.5–37.1; O2SAT 59–100; BMI 25.0; BMI 20.7
--- NOTE | 2024-11-14 16:20 | PC.NURSE ---
SENT FROM [facility] DUE TO LOW HGB AND NEED FOR BLOOD TRANSFUSION. PT WITH NO COMPLAINTS
[2024-11-14 17:04] LABS: Basophils % (Auto) 0 % (0-2.5); Eosinophils # (Auto) 0.1 Thou/mm3 (0.0-0.5); Eosinophils % (Auto) 1 % (0-10); Immature Granulocytes % (Auto) 1 % (0-0); Immature Granulocytes Auto 0.14 Thou/mm3 (0.00-0.00); Lymphocytes # (Auto) 1.3 Thou/mm3 (1.0-4.8); Lymphocytes % (Auto) 13 % (10-50); Mean Corpuscular Hemoglobin 26.9 pg (25.0-35.0); Mean Corpuscular Volume 84 fL (80-100); Monocytes # (Auto) 0.8 Thou/mm3 (0.0-0.8); Monocytes % (Auto) 7 % (0-12); Neutrophils # (Auto) 7.9 Thou/mm3 (1.8-7.7); Neutrophils % (Auto) 77 % (37-80); Nucleated Red Blood Cell % 0 /100 WBC (0); Platelet Count 367 Thou/mm3 (140-440); RDW Standard Deviation 43.8 fL (35.1-43.9); Red Blood Count 2.16 Miln/mm3 (4.50-5.90); White Blood Count 10.3 Thou/mm3 (3.8-10.6)
[2024-11-14 17:06] LABS: Hematocrit 18.1 % (41.0-53.0); Hemoglobin 5.8 g/dL (13.5-16.0)
[2024-11-14 17:16] LABS: Alanine Aminotransferase 69 U/L (10-49); Albumin, Serum 3.2 gm/dL (3.4-4.8); Albumin/Globulin Ratio 1.3 (1.2-2.2); Alkaline Phosphatase 75 U/L (46-116); Anion Gap 13 (7-16); BUN/Creatinine Ratio 25 Ratio (12-20); Bilirubin,Total 0.2 mg/dL (0.3-1.2); Blood Urea Nitrogen 74 mg/dL (9-23); Calcium 7.6 mg/dL (8.3-10.6); Calcium (Corrected) 8.2 mg/dL (8.5-10.1); Carbon Dioxide 21.4 mMol/L (20.0-31.0); Chloride 104 mMol/L (98-107); Estimated Creatinine Clearance 21.8 mL/min (>60); Globulin 2.5 gm/dL (2.3-3.5); Glucose 213 mg/dL (74-106); Osmolality,Calculated 303 (275-295); Potassium 4.2 mMol/L (3.4-5.1); Sodium 138 mMol/L (136-145); Total Protein 5.7 gm/dL (5.7-8.2); eGFR 22 See Note
--- NOTE | 2024-11-14 17:33 | EDNOTE_ITS ---
ED Recheck Abnl Lab Rx-RME/HPI General Chief Complaint: Recheck/Abnormal Lab/Rx Stated Complaint: LOW HGB, SENT FROM [facility] FOR BLOD Time Seen by Provider: 11/14/24 18:15 Arrival date/time: 11/14/24 15:47 RME / HPI RME / HPI narrative: A 64-year-old male patient with past medical history of hypertension, insulin- dependent diabetes mellitus, hyperlipidemia, CKD stage IIIb, HFrEF with last ejection fraction of 35%, coronary artery disease, history of cardiac arrest status post ROSC, bilateral BKA, A-fib, mitral regurgitation was brought to the hospital from [facility] after he was found to have worsening lethargy and weakness. They did for him CBC found to have hemoglobin level less than 7. Patient denied any other symptoms denied vomiting blood. Does not know what color of his stool and does not know if he had bleeding per rectum. Patient denied any history of colonoscopy or EGD. Denied any use of ibuprofen's, and history of peptic ulcer. Related Data Home Medications ?Medication ?Instructions ?Recorded ?Confirmed bisacodyl 10 mg rectal suppository 10 mg ID QDAY PRN c onstipation 08/28/24 09/10/24 (Dulcolax (bisacodyl)) acetaminophen 325 mg tablet 650 mg PO Q4H PRN fever or pain 09/10/24 09/10/24 Previous Rx's ?Medication ?Instructions ?Recorded aluminum-mag hydroxide-simethicone 30 ml PO Q4HR PRN H eartburn or 09/08/24 200 mg-200 mg-20 mg/5 mL oral susp Upset Stomach #3,00 0 mL (Mag-Al Plus) amiodarone 200 mg tablet 200 mg PO QDAY #90 tabs 08/11 07/05 carvedilol 3.125 mg tablet 3.125 mg PO BIDWM #90 tabs 09/08/24 midodrine 5 mg tablet 5 mg PO TID PRN SBP < 100 or MAP < 09/08/24 65 #30 tabs tamsulosin 0.4 mg capsule 0.4 mg PO HS #60 caps apixaban 2.5 mg tablet (Eliquis) 2.5 mg PO BID #60 tab s 09/12/24 aspirin 81 mg tablet,delayed 81 mg PO QDAY #30 tabs release (Ecotrin Low Strength) bumetanide 0.5 mg tablet 1 mg (2 x 0.5 mg) PO QDAY #9 0 tabs 09/12/24 empagliflozin 10 mg tablet 10 mg PO QAM #30 tabs 09/12 (Jardiance) Allergies Allergy/AdvReac Type Severity Reaction Status Date / Time No Known Allergies Allergy Verified 11/14/24 16:31 ED Exam Narrative Physical exam: GEN: AOx3, able to speak full sentences HEENT: NC/AC, oral mucosa moist, neck supple CVS: RRR, S1-S2 present, no murmurs appreciated RESP: CTAB GI: soft,non distended, non tender, NBS MSK: Bilateral BKA, multiple fingers hypertension at the right hand. No lower extremity edema SKIN: warm and dry METAL FABRICATION SUPERVISOR: CN II-XII and Sensation grossly intact. Course Quality Measures none Orders Category Date Time Status Pig Conveyor Operator NOW Care 11/14/24 17:30 Active Continuous Pulse Oximetry Care 11/14/24 17:30 Active IV [Insert IV] NOW Care 11/14/24 16:51 Completed Obtain Written Consent For: NOW Care 11/14/24 17:30 Completed Occult Blood,Stool (Nursing) NOW Care 11/14/24 17:31 Active Transfuse,blood/blood products NOW Care 11/14/24 17:30 Active Transfuse,blood/blood products NOW Care 11/14/24 18:18 Active Vital Signs, Non-Routine Q30M Care 11/14/24 17:[address] abdomen pelvis wo con Stat Exams 11/14/24 17:42 Taken CBC Stat Lab 11/14/24 16:47 Completed CMP [Comprehensive Metabolic Panel] Stat Lab 11/14/24 16:47 Completed Free T4 (Free Thyroxine) Stat Lab 11/14/24 16:47 Completed Hgb and Hct Post-Transfusion Stat Lab 11/14/24 20:00 Ordered Magnesium Stat Lab 11/14/24 16:47 Completed PT [Prothrombin Time with INR] Stat Lab 11/14/24 16:47 Completed PTT [Partial Thromboplastin Time] Stat Lab 11/14/24 16:47 [address]pleted [address] Review Blood Smear Stat Lab 11/14/24 16:47 Completed Red Blood Cells Stat Lab 11/14/24 16:47 Results Thyroid Stimulating Hormone Stat Lab 11/14/24 16:47 Completed Troponin I Stat Lab 11/14/24 16:47 Completed Type and Screen Stat Lab 11/14/24 16:47 Results Calcium Chloride 10% Inj 10 ml Med 11/14/24 17:32 Discontinued Dextrose 5%-Water [D5w] 100 ml IV X1 Furosemide [Lasix Inj] Med 11/14/24 17:30 Discontinued 20 mg IVP X1 ONE Ringers Lactated 1000 ml [Lactated Ringers] 1,000 ml Med 11/14/24 17:49 Discontinued IV 999 mls/hr Ringers Lactated 500 ml [Lactated Ringers] 500 ml Med 11/14/24 17:43 Discontinued IV 999 mls/hr Vital Signs Vital signs: Vital Signs Temperature 98.3 F 11/14/24 15:48 Pulse Rate 58 L 11/14/24 15:48 Respiratory Rate 16 11/14/24 15:48 Blood Pressure 93/52 L 11/14/24 15:48 Pulse Oximetry (%) 98 11/14/24 15:48 Recheck / Abnormal Lab / Rx MDM Narrative MDM Narrative:: Patient denied any symptoms except lethargy and weakness. We ordered for the patient 500 mL of NS as his blood pressure was 93/54, we also gave him 1 unit of blood we will reassess after the first unit to see if the patient will need more blood as the patient has severe heart failure with ejection fraction of 30%. Pending stool occult blood test. Abdominal and pelvic CT scan. Patient was signed out to the ED doctor Leighton Rectal exam was done confirmed is guaiac positive strongly turning blue on the card Dr. Burns was called agrees to consult and asked for n.p.o. after midnight give a dose of Protonix and hospitalist was called and they will be admitted Patient data External records reviewed:: [facility] previous records Clinical information provided by:: patient Social determinants that could affect healthcare access:: none Patient has the following chronic illnesses:: Heart failure, hypertension, diabetes mellitus, depression How is presenting disease/condition affected by chronic disease/condition?: uneffected by Evaluation data The following diagnostics were reviewed and interpreted by me:: lab results, radiology exam(s), EKG tracing(s) and other (specify) Lab and/or radiology exams considered but not ordered:: None Interpretation Summary: Anemia of acute blood loss, most likely GI bleed Medications / Prescriptions Medications or Prescriptions considered but not ordered:: None Medication administrations:: Medication Administration History Discontinued Medications Furosemide (Furosemide Inj 10 Mg/Ml Vial 2 Ml) 20 mg IVP X1 ONE Stop: 11/14/24 17:31 Last Admin: 11/14/24 17:44 Dose: Not Given Documented By: KINJAL Non-Admin Reason: Discontinued Calcium Chloride 10 ml/ (Dextrose) 110 mls @ 110 mls/hr IV X1 ONE; Protocol Stop: 11/14/24 18:31 Last Admin: 11/14/24 18:02 Dose: 110 mls/hr Documented By: KINJAL Lactated Ringer's (Lactated Ringers) 500 mls @ 999 mls/hr IV .Q31M ONE Stop: 11/14/24 18:13 Last Admin: 11/14/24 17:50 Dose: Not Given Documented By: KINJAL Non-Admin Reason: Discontinued Lactated Ringer's (Lactated Ringers) 1,000 mls @ 999 mls/hr IV .Q1H1M ONE Stop: 11/14/24 18:49 Last Infusion: 11/14/24 19:06 Dose: Infused Documented By: Admin: 11/14/24 18:00 Dose: 999 mls/hr Documented By: KINJAL As above Consultations Consultation(s) initiated? (list below): No Consultation #1 (Physician, Specialty, Details): Patient may need GI consultation based on the stool occult blood test results. Diagnosis Recheck Differential Diagnosis: other (Acute blood loss anemia, GI bleed, nutritional anemia.) Most likely diagnosis given after review of the tests above:: GI bleed Admission Indicated Admission indicated?: indicated (Pending final results of the CT abdomen pelvis and the stool occult blood test) Explain why admission is indicated or not indicated:: Pending final results of the stool occult blood and abdominal CT. Admission Request Was there a request for admission?: No Disposition Plan Disposition Plan: other (specify) (Patient was signed out to Dr. Brush for final disposition) Discharge Plan Plan Patient Disposition: Admit Acute Care w/in Hospital Discharge Disposition comment: Hospitalist made Dr. Burns to consult Prescriptions/Referrals Prescriptions/Med Rec: No Action acetaminophen 325 mg tablet 650 mg PO Q4H PRN (Reason: fever or pain) aspirin [Ecotrin Low Strength] 81 mg Tablet,Delayed Release (Dr/Ec) 81 mg PO QDAY Qty: 30 0RF Eliquis 2.5 mg Tablet 2.5 mg PO BID Qty: 60 0RF bumetanide 0.5 mg tablet 1 mg PO QDAY Qty: 90 0RF Jardiance 10 mg tablet 10 mg PO QAM Qty: 30 0RF bisacodyl [Dulcolax (bisacodyl)] 10 mg suppository 10 mg ID QDAY PRN (Reason: constipation) Rx Instructions: IF MOM IS INEFFECTIVE AND NO BM FOR 8 HRS amiodarone 200 mg Tablet 200 mg PO QDAY Qty: 90 0RF carvedilol 3.125 mg Tablet 3.125 mg PO BIDWM Qty: 90 0RF tamsulosin 0.4 mg Capsule 0.4 mg PO HS Qty: 60 0RF midodrine 5 mg Tablet 5 mg PO TID PRN (Reason: SBP < 100 or MAP < 65) Qty: 30 0RF alum-mag hydroxide-simeth [Mag-Al Plus] 200-200-20 mg/5 mL Suspension 30 ml PO Q4HR PRN (Reason: Heartburn or Upset Stomach) Qty: 3000 0RF Referrals: Jalil Le MD [Primary Care Provider] - In 1 week Problem List Clinical Impression: Anemia, GI (gastrointestinal bleed), Diabetes Patient/Caregiver Discharge Instructions Print Language: Burkinan Stand Alone Forms: [employer] Award Info., Patient Portal Info Letter Attestation Attestation I, Bharat Manzanares MD, have reviewed the history, exam, and assessment of the patient. I have evaluated the patient independently and agree with the plan of care documented by [ ]. All diagnostic studies were reviewed and discussed. I confirm the diagnosis as documented by the Resident. I was present during the Medical Decision Making for this patient. The patient's plan of care was created between myself and the Resident and consistent with our discussion of the patient's case. Patient presents with lethargy weakness with severe anemia with a 3 g drop from the baselines of the 9-10 range patient has no history of GI bleed. The care was signed out to me at 1900 hrs. We were able to finally get him out of the hallway into a room at approximately 1930 hrs. where he did a rectal exam soon after that he was found to be strongly guaiac positive. I contact Dr. Burns who will be consulting I spoke with the resident who will be admitting.
--- NOTE | 2024-11-14 17:42 | XR_ITS ---
Examination: CT abdomen and pelvis without contrast. Coronal 3-D reconstructions. Sagittal 2-D reconstructions. Date and time of exam:November 14, 2024 1918 hours Comparison April 09, 2024 INDICATIONS: Internal bleeding abdominal pain diarrhea 4 days CTDI: vol (mGy): 8 .1 DLP: (mGycm): 501 Technique: Axial images of the abdomen have been obtained, 3 mm slice thickness Intravenous contrast material has not been administered. Low dose protocols were performed. One or more of the following dose reduction techniques were used; automated exposure control, adjustment of the mA and/or KV according to patient size, use of iterative reconstruction technique. Findings: Calcification interventricular septum Bibasilar pneumonia with small pleural effusions Gallbladder sludge versus small stones No focal liver or splenic lesions No pancreatic mass Bilateral small renal calcifications likely renal arterial Perinephric stranding No hydronephrosis Normal appendix Abundant stool in the colon especially rectosigmoid Marked abnormal thickening of the rectal wall Prostate is enlarged with irregular margins, measuring 5.6 cm in transverse dimension Urinary bladder wall shows irregular thickening on the right side measuring up to 10 mm Prominent osteopenia Moderate disc narrowing L4-L5 Small fat-containing left inguinal hernia IMPRESSION: Recommend rectum gallbladder sonography follow-up to assess for gallstones Bilateral perinephric stranding consider urinary tract infection Very large amounts of stool in the rectosigmoid with abnormal thickening of the rectal wall, differential would include proctitis, rectal carcinoma, recommend direct inspection Abnormal urinary bladder wall thickening on the right side measuring up to 10 mm, differential would include urinary tract outflow obstruction secondary to the patient's prostatomegaly as well as early bladder carcinoma, recommend urology consultation
[2024-11-14] MEDS: RINGERS LACTATED 1000 ML 1,000 ML 999 ML IV (18:00)
[2024-11-14] MEDS: Calcium Chloride 10% Inj 10 ML in DEXTROSE 5%-WATER 100 ML 110 ML IV (18:02)
[2024-11-14 18:18] LABS: Path Review Blood Smear Sent to Pathologist
[2024-11-14 18:46] LABS: Free T4 (Free Thyroxine) 1.46 ng/dL (0.89-1.76); Magnesium 1.7 mg/dL (1.6-2.6); Troponin I < 0.020 ng/mL (0.0-0.045)
--- NOTE | 2024-11-14 19:05 | PC.NURSE ---
PT TAKEN TO CT.
[2024-11-14 19:15] LABS: Partial Thromboplastin Time 35.5 Seconds (22.0-36.0); Prothrombin Time 11.4 Seconds (9.0-12.2)
[2024-11-14] MEDS: PANTOPRAZOLE INJ 40 MG VIAL IVP (20:26)
[2024-11-14] MEDS: LIDOCAINE JELLY 2% (Urojet) 10 ML TUBE TOP (21:15)
--- NOTE | 2024-11-14 22:10 | PD.EDADDENDU ---
Emergency Room Addendum <Santiago Brush MD - Last Filed: 11/15/24 04:56> Addendum Narrative: I took over the care from previous shift physician at 6 PM on 11/14/2024.? See previous notes for complete H & P and ED course.?? I reviewed all diagnostic test results: My review of the abdominal CT report is: Recommend rectum gallbladder sonography follow-up to assess for gallstones. Bilateral perinephric stranding consider urinary tract infection. Very large amounts of stool in the rectosigmoid with abnormal thickening of the rectal wall, differential would include proctitis, rectal carcinoma, recommend direct inspection. Abnormal urinary bladder wall thickening on the right side measuring up to 10 mm, differential would include urinary tract outflow obstruction secondary to the patient's prostatomegaly as well as early bladder carcinoma, recommend urology consultation. Abnormal urinary bladder wall thickening on the right side measuring up to 10 mm, differential would include urinary tract outflow obstruction secondary to the patient's prostatomegaly as well as early bladder carcinoma. Blood tests remarkable for Hgb 5.8, Cr 3.0. UA remarkable for severe hematuria and UTI. Diagnoses include: Severe anemia due to hematuria and UTI. I discussed the case with our hospitalist.? About the presentation and exam and diagnostics and treatments here.? And need of further care in the hospital.? Declined to accept the patient due to no urology service here. I discussed the case with Dr. Carlisle (Urology) and Dr. Browne (ED Attending) at [facility].? About the presentation and exam and diagnostics and treatments here.? And need of further care there.? Will accept the patient. Recommended transfer when Hgb > 8. Recommended CBI. Patient declined CBI. Discussed potential benefits and risks. Patient understood but still declined. We couldn't change his mind. Santiago Brush MD <Rosemary Sandhu - Last Filed: 11/15/24 03:07> Addendum Narrative: I took over the care from previous shift physician at 6 PM on 11/14/2024.? See previous notes for complete H & P and ED course.?? I reviewed all diagnostic test results: My review of the abdominal CT report is: Recommend rectum gallbladder sonography follow-up to assess for gallstones. Bilateral perinephric stranding consider urinary tract infection. Very large amounts of stool in the rectosigmoid with abnormal thickening of the rectal wall, differential would include proctitis, rectal carcinoma, recommend direct inspection. Abnormal urinary bladder wall thickening on the right side measuring up to 10 mm, differential would include urinary tract outflow obstruction secondary to the patient's prostatomegaly as well as early bladder carcinoma, recommend urology consultation. Abnormal urinary bladder wall thickening on the right side measuring up to 10 mm, differential would include urinary tract outflow obstruction secondary to the patient's prostatomegaly as well as early bladder carcinoma. Blood tests remarkable for Hgb 5.8, Cr 3.0. UA remarkable for severe hematuria. Diagnoses include: Severe anemia due to hematuria. Stressed the need for CBI to patient. Patient declined CBI and was adamant about not wanting the procedure performed. I discussed the case with our hospitalist.? About the presentation and exam and diagnostics and treatments here.? And need of further care in the hospital.? Declined to accept the patient due to no urology service here. Santiago Brush MD
[2024-11-15 00:09] VITALS: BP 109/52; PULSE 53; RESP 14; TEMP 37.1; O2SAT 100
[2024-11-15 00:25] VITALS: BP 115/66; PULSE 55; RESP 16; TEMP 37; O2SAT 100
[2024-11-15 00:40] VITALS: BP 124/61; PULSE 56; RESP 16; TEMP 37.1; O2SAT 100
--- NOTE | 2024-11-15 00:55 | PC.NURSE ---
JORDANA FROM THE [facility] CALLED AND ALL THEIR FACILITIES ARE AT CAPACITY AT THIS TIME AND THIS PT IS WAIT LISTED RIGHT NOW WITH A POSSIBLE UPDATE AT 0800 ON 11/15/2024.
--- NOTE | 2024-11-15 01:00 | PC.NURSE ---
PT REFUSED CBI, STATES HE DOESN'T WANT THE [place] CATH REDONE WITH A CBI CATH
--- NOTE | 2024-11-15 01:04 | PC.NURSE ---
THIS PT IS [place] [facility] [place] THE CONTINGENCY THAT THE HGB IS ABOVE 8. WE ARE TO FAX OVER THE NEW LAB RESULTS TO THE TRANSFER CENTER ONCE THE REPEAT LABS ARE RESULTED.
[2024-11-15 02:31] LABS: Collection Type, Urine Clean Catch; Squamous Epithelial Cell,Urine 0 /hpf (0-5)
[2024-11-15 02:35] LABS: Hematocrit 25.5 % (41.0-53.0)
[2024-11-15] MEDS: TRANEXAMIC ACID 1,000 MG IVPB 1,000 MG/100 ML BAG 200 MG IV (02:40)
[2024-11-15 02:41] LABS: Hemoglobin 8.8 g/dL (13.5-16.0)
[2024-11-15 02:45] LABS: Bilirubin,Urine Negative (Negative); Blood,Urine 3+ (Negative); Glucose, Urine 3+ (Negative); Ketones,Urine Negative (Negative); Leukocyte Esterase,Urine Positive (Negative); Nitrite,Urine Negative (Negative); PH,Urine 6.5 (5.0-7.0); Protein,Urine 2+ (Neg - Trace); RBC,Urine 7516 /hpf (0-3); Specific Gravity,Urine 1.012 (1.001-1.035); Urobilinogen,Urine Negative mg/dL (0.0-1.0); WBC,Urine 558 /hpf (0-5)
[2024-11-15 02:48] LABS: Clarity,Urine Turbid (Clear/Hazy); Color,Urine Red (Lt Yel-Yel); Culture Indicated,Urine Yes
[2024-11-15 02:59] VITALS: BP 131/67; PULSE 63; RESP 16; TEMP 36.9; O2SAT 100
[2024-11-15] MEDS: [UNRECOGNIZED DRUG - OTHER] IV (03:09)
[2024-11-15] MEDS: PROTHROMBIN COMPLEX CONCENT IV (03:09)
[2024-11-15] MEDS: STERILE WATER IV (03:09)
[2024-11-15 03:14] VITALS: BP 130/65; PULSE 61; RESP 16; TEMP 37; O2SAT 98
[2024-11-15 03:16] VITALS: BP 134/70; PULSE 66; RESP 16; TEMP 37; O2SAT 99
[2024-11-15] MEDS: cefTRIAXone/D5w 1gm IV premix 1 G/50 ML BAG IV (03:19)
--- NOTE | 2024-11-15 04:29 | PC.NURSE ---
REPORT CALLED TO REBEKAH DALY
== END 2024-11-15 04:32 | disposition short-term general hospital (02) ==
PROVIDERS: Emergency Medicine; Emergency Provider Emergency Medicine; PCP Family Medicine
DX: D62 Acute posthemorrhagic anemia (principal); K92.2 Gastrointestinal hemorrhage, unspecified; E11.22 Type 2 diabetes mellitus with diabetic chronic kidney disease; K62.89 Other specified diseases of anus and rectum; N32.89 Other specified disorders of bladder; K92.1 Melena; I13.0 Hypertensive heart and chronic kidney disease with heart failure and stage 1 through stage 4 chronic kidney disease, or unspecified chronic kidney disease; N18.32 Chronic kidney disease, stage 3b; N39.0 Urinary tract infection, site not specified; R31.9 Hematuria, unspecified; I50.20 Unspecified systolic (congestive) heart failure; Z79.4 Long term (current) use of insulin; Z79.84 Long term (current) use of oral hypoglycemic drugs
CPT/HCPCS: 51702; 36415; 36430; 74176; 80053; 81001; 83735; 84439; 84443; 84484; 85014; 85018; 85025; 85610; 85730; 86850; 86900; 86901; 86923; 87086; 96365; 96367; 96375; 99285; A4216; A4314; J0696; J2470; J3490; J7120; J7168; P9016

== ENCOUNTER 2024-11-26 13:53 | Emergency (ER) | payer OTHER, MEDICARE, SELFPAY ==
[2024-11-26 13:54] VITALS: BP 115/63; PULSE 58; RESP 16; TEMP 37.1; O2SAT 97
[2024-11-26 13:55] VITALS: BMI 17.7
[2024-11-26 14:02] VITALS: PULSE 56; RESP 18; O2SAT 96
--- NOTE | 2024-11-26 14:02 | PD.EDMALE ---
ED Male Genitalurinary RME/HPI General Chief complaint: Urogenital-Male Stated complaint: HEMATURIA Time Seen by Provider: 11/26/24 13:56 Arrival date/time: 11/26/24 13:53 RME / HPI RME / HPI Narrative: 64-year-old male patient with significant history of diabetes mellitus, BPH, came in for evaluation regarding blood in the urine. Patient had prostate biopsy done 6 days ago and starting yesterday noted some blood in the urine. Patient denies any vomiting denies any fever but complains of dysuria. Denies any pelvic pain. Denies any other complaints no medication was taken prior to arrival. Patient is currently taking Eliquis. Also taking aspirin. Related Data Home Medications ?Medication ?Instructions ?Recorded ?Confirmed bisacodyl 10 mg rectal suppository 10 mg TX QDAY PRN constipation 08/28/24 09/10/24 (Dulcolax (bisacodyl)) acetaminophen 325 mg tablet 650 mg PO Q4H PRN fever or pain 09/10/24 09/10/24 Previous Rx's ?Medication ?Instructions ?Recorded aluminum-mag hydroxide-simethicone 30 ml PO Q4HR PRN Heartburn or 09/08/24 200 mg-200 mg-20 mg/5 mL oral susp Upset Stomach #3,000 mL (Mag-Al Plus) amiodarone 200 mg tablet 200 mg PO QDAY #90 tabs 09/08/24 carvedilol 3.125 mg tablet 3.125 mg PO BIDWM #90 tabs 09/08/24 midodrine 5 mg tablet 5 mg PO TID PRN SBP < 100 or MAP < 09/08/24 65 #30 tabs tamsulosin 0.4 mg capsule 0.4 mg PO HS #60 caps 09/08/24 apixaban 2.5 mg tablet (Eliquis) 2.5 mg PO BID #60 tabs 09/12/24 aspirin 81 mg tablet,delayed 81 mg PO QDAY #30 tabs 09/12/24 release (Ecotrin Low Strength) bumetanide 0.5 mg tablet 1 mg (2 x 0.5 mg) PO QDAY #90 tabs 09/12/24 empagliflozin 10 mg tablet 10 mg PO QAM #30 tabs 09/12/24 (Jardiance) ciprofloxacin HCl 500 mg tablet 500 mg PO BID #14 tabs 11/26/24 (Cipro) Allergies Allergy/AdvReac Type Severity Reaction Status Date / Time No Known Allergies Allergy Verified 11/26/24 14:08 Review of Systems Review of Systems Narrative Review of Systems: Review of system reviewed and within normal limits except mentioned in HPI ED Exam Narrative Physical exam: VITAL SIGNS: Reviewed. GENERAL APPEARANCE: Alert and interactive, follows commands, no acute distress, HEAD AND FACE: Non-traumatic. ENT: PERRL, pink conjunctivitis, eyelid no trauma, Mucous membrane moist. NECK: Supple, nontender, no nuchal rigidity. CHEST: No tenderness, no crepitus, no paradoxical movement, no retractions. LUNGS: Clear, well ventilated, symmetric, no rales, no wheezing, no ronchi, no stridor, good breath sounds bilaterally. HEART: Regular rate, regular rhythm, no murmur, no gallops. ABDOMEN: Soft, positive bowel sounds, nondistended, no guarding, nontender, no rebound, no masses, RECTAL: Deferred. GENITAL: Deferred. NEUROLOGICAL: Gross motor function intact sensory function intact, Appropriate for age. MUSCULOSKELETAL: low back nontender, full range of motion. EXTREMITIES: Status post BKA bilateral, full range of motion. SKIN: Color pink, dry, no rash, no lacerations, no abrasions, no contusions. LYMPHATICS: Deferred. Course Quality Measures none Orders Category Date Time Status CBC Stat Lab 11/26/24 14:29 Completed Comprehensive Metabolic Panel Stat Lab 11/26/24 14:29 Completed Partial Thromboplastin Time Stat Lab 11/26/24 14:29 Completed Prothrombin Time with INR Stat Lab 11/26/24 14:29 Completed Urinalysis, C/S if Indicated Stat Lab 11/26/24 14:14 Completed Urine Culture Stat Lab 11/26/24 14:14 Received Sodium Chloride 0.9% 1000 ml [Ns] 1,000 ml Med 11/26/24 14:02 Discontinued IV 999 mls/hr cefTRIAXone/D5w 1gm IV premix [Rocephin/D5w 1gm IV Med 11/26/24 16:08 Discontinued premix] 1 gm in 50 ml IV X1 Vital Signs Vital signs: Vital Signs Temperature 98.7 F 11/26/24 13:54 Pulse Rate 58 L 11/26/24 13:54 Respiratory Rate 16 11/26/24 13:54 Blood Pressure 115/63 11/26/24 13:54 Pulse Oximetry (%) 97 11/26/24 13:54 Oxygen Delivery Method Room Air 11/26/24 13:54 Urogenital - Male [facility] Narrative [facility] Narrative:: 64-year-old male patient with significant history of diabetes mellitus, BPH, came in for evaluation regarding blood in the urine. Patient had prostate biopsy done 6 days ago and starting yesterday noted some blood in the urine. Patient denies any vomiting denies any fever but complains of dysuria. Denies any pelvic pain. Denies any other complaints no medication was taken prior to arrival. Patient is currently taking Eliquis. Also taking aspirin. Patient's workup is significant for chronic kidney disease, creatinine of 2.2 BUN 34. Patient received a liter fluid. Patient was also given IV ceftriaxone. Urinalysis significant for UTI and hematuria Patient is tolerating p.o. fluids in the emergency room. Patient was advised to follow-up with urologist in few days. Patient agrees with the plan Patient data External records reviewed:: None Clinical information provided by:: patient Social determinants that could affect healthcare access:: none Patient has the following chronic illnesses:: BPH, diabetes mellitus How is presenting disease/condition affected by chronic disease/condition?: exacerbated by Evaluation data The following diagnostics were reviewed and interpreted by me:: lab results, radiology exam(s) and EKG tracing(s) Lab and/or radiology exams considered but not ordered:: None Interpretation Summary: See results MDM Medications / Prescriptions Medications or Prescriptions considered but not ordered:: None Medication administrations:: Medication Administration History Discontinued Medications Sodium Chloride (Ns) 1,000 mls @ 999 mls/hr IV .Q1H1M ONE Stop: 11/26/24 15:02 Last Admin: 11/26/24 14:34 Dose: 999 mls/hr Documented By: GM Ceftriaxone Sodium/Dextrose (Rocephin/D5w 1gm Iv Premix) 1 gm in 50 mls @ 100 mls/hr IV X1 ONE Stop: 11/26/24 16:37 Ceftriaxone IV, IV fluids for hydration Consultations Consultation(s) initiated? (list below): No Diagnosis Urogenital Male Differential Diagnosis: urinary tract infection and other (Hematuria, history of chronic kidney disease) Most likely diagnosis given after review of the tests above:: UTI, hematuria, history of chronic kidney disease Admission Indicated Admission indicated?: not indicated Explain why admission is indicated or not indicated:: Stable Admission Request Was there a request for admission?: No Disposition Plan Disposition Plan: Discharge Discharge Attestation Discharge Attestation: The patient and all family members were given an opportunity to ask questions and understood the discharge instructions. Discharge instructions specifically effects, indications for sooner follow up or return to the emergency department, and the expected course of current diagnosis. Patient condition: Stable Discharge Plan Plan Patient Disposition: HOME (Self Care) Discharge Disposition comment: Stable Prescriptions/Referrals Prescriptions/Med Rec: New ciprofloxacin HCl [Cipro] 500 mg tablet 500 mg PO BID Qty: 14 0RF No Action acetaminophen 325 mg tablet 650 mg PO Q4H PRN (Reason: fever or pain) aspirin [Ecotrin Low Strength] 81 mg Tablet,Delayed Release (Dr/Ec) 81 mg PO QDAY Qty: 30 0RF Eliquis 2.5 mg Tablet 2.5 mg PO BID Qty: 60 0RF bumetanide 0.5 mg tablet 1 mg PO QDAY Qty: 90 0RF Jardiance 10 mg tablet 10 mg PO QAM Qty: 30 0RF bisacodyl [Dulcolax (bisacodyl)] 10 mg suppository 10 mg TX QDAY PRN (Reason: constipation) Rx Instructions: IF MOM IS INEFFECTIVE AND NO BM FOR 8 HRS amiodarone 200 mg Tablet 200 mg PO QDAY Qty: 90 0RF carvedilol 3.125 mg Tablet 3.125 mg PO BIDWM Qty: 90 0RF tamsulosin 0.4 mg Capsule 0.4 mg PO HS Qty: 60 0RF midodrine 5 mg Tablet 5 mg PO TID PRN (Reason: SBP < 100 or MAP < 65) Qty: 30 0RF alum-mag hydroxide-simeth [Mag-Al Plus] 200-200-20 mg/5 mL Suspension 30 ml PO Q4HR PRN (Reason: Heartburn or Upset Stomach) Qty: 3000 0RF Referrals: Alfa Le MD [Primary Care Provider] - In 1 week Problem List Clinical Impression: Acute UTI, Hematuria, Chronic kidney disease Patient/Caregiver Discharge Instructions Discharge Activity: activity as tolerated Education Materials: Understanding Urinary Tract ... Additional Instructions: Thank you for the opportunity for serving you today. You are stable for discharged . 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
[2024-11-26] MEDS: SODIUM CHLORIDE 0.9% 1000 ML 1,000 ML 999 ML IV (14:34)
[2024-11-26 14:35] LABS: Collection Type, Urine Clean Catch; Squamous Epithelial Cell,Urine 0 /hpf (0-5)
[2024-11-26 14:41] LABS: Basophils # (Auto) 0.1 Thou/mm3 (0.0-0.2); Basophils % (Auto) 1 % (0-2.5); Eosinophils # (Auto) 0.2 Thou/mm3 (0.0-0.5); Eosinophils % (Auto) 1 % (0-10); Hematocrit 30.5 % (41.0-53.0); Hemoglobin 10.1 g/dL (13.5-16.0); Immature Granulocytes % (Auto) 3 % (0-0); Immature Granulocytes Auto 0.31 Thou/mm3 (0.00-0.00); Lymphocytes # (Auto) 1.7 Thou/mm3 (1.0-4.8); Lymphocytes % (Auto) 15 % (10-50); Mean Corpuscular HGB Conc 33.1 g/dl (31.0-37.0); Mean Corpuscular Hemoglobin 26.7 pg (25.0-35.0); Mean Corpuscular Volume 81 fL (80-100); Monocytes # (Auto) 0.8 Thou/mm3 (0.0-0.8); Monocytes % (Auto) 6 % (0-12); Neutrophils # (Auto) 8.9 Thou/mm3 (1.8-7.7); Neutrophils % (Auto) 75 % (37-80); Nucleated Red Blood Cell % 0 /100 WBC (0); Platelet Count 416 Thou/mm3 (140-440); RDW Standard Deviation 45.1 fL (35.1-43.9); Red Blood Count 3.78 Miln/mm3 (4.50-5.90); White Blood Count 11.9 Thou/mm3 (3.8-10.6)
[2024-11-26 14:55] LABS: Partial Thromboplastin Time 31.8 Seconds (22.0-36.0); Prothrombin Time 11.4 Seconds (9.0-12.2)
[2024-11-26 14:57] LABS: Bilirubin,Urine Negative (Negative); Blood,Urine 3+ (Negative); Color,Urine Red (Lt Yel-Yel); Glucose, Urine 4+ (Negative); Ketones,Urine Negative (Negative); Leukocyte Esterase,Urine Positive (Negative); Nitrite,Urine Negative (Negative); PH,Urine 6.5 (5.0-7.0); Protein,Urine 2+ (Neg - Trace); RBC,Urine 63442 /hpf (0-3); Specific Gravity,Urine 1.007 (1.001-1.035); Urobilinogen,Urine Negative mg/dL (0.0-1.0); WBC,Urine 1387 /hpf (0-5)
[2024-11-26 15:09] LABS: Alanine Aminotransferase 24 U/L (10-49); Albumin, Serum 3.2 gm/dL (3.4-4.8); Albumin/Globulin Ratio 1.2 (1.2-2.2); Alkaline Phosphatase 73 U/L (46-116); Anion Gap 7 (7-16); Aspartate Amino Transferase 33 U/L (0-34); BUN/Creatinine Ratio 15 Ratio (12-20); Bilirubin,Total < 0.2 mg/dL (0.3-1.2); Blood Urea Nitrogen 34 mg/dL (9-23); Calcium 7.9 mg/dL (8.3-10.6); Calcium (Corrected) 8.5 mg/dL (8.5-10.1); Carbon Dioxide 26.6 mMol/L (20.0-31.0); Chloride 102 mMol/L (98-107); Creatinine (Component) 2.2 mg/dL (0.6-1.3); Estimated Creatinine Clearance 25.4 mL/min (>60); Globulin 2.7 gm/dL (2.3-3.5); Glucose 266 mg/dL (74-106); Osmolality,Calculated 288 (275-295); Sodium 136 mMol/L (136-145); Total Protein 5.9 gm/dL (5.7-8.2); eGFR 32 See Note
[2024-11-26 15:11] LABS: Clarity,Urine Bloody (Clear/Hazy); Culture Indicated,Urine Yes
[2024-11-26 15:14] VITALS: BP 119/57; PULSE 56; RESP 16; TEMP 37; O2SAT 97
[2024-11-26] MEDS: cefTRIAXone/D5w 1gm IV premix 1 GM/50 ML BAG IV (17:45)
--- NOTE | 2024-11-26 18:00 | PC.CC ---
Dawn PRADHAN was consulted regarding transportation back to [facility] for the patient. ASW made contact with Harika with [facility] who reports they do not have any drivers for the remaining of the day. Patient does not have coverage and patient;'s reports she is unable to pay for transportation via ambulance. Lori with transfer center signed [facility] for transportation via [facility].
[2024-11-26 18:35] VITALS: BP 103/60; PULSE 59; RESP 19; TEMP 36.3; O2SAT 99
--- NOTE | 2024-11-26 18:55 | PC.NURSE ---
SPOKE TO FANNY BROWN FOR SBAR REPORT AND MADE AWARE THAT PT IS STABLE FOR DISCHARGE AT THIS TIME AND THAT ETA FOR [facility] [employer] [facility] IS AT 2030 BY AMBULANCE.
[2024-11-26 19:17] VITALS: BP 134/68; PULSE 55; RESP 18; TEMP 37.2; O2SAT 98
[2024-11-26 21:29] VITALS: BP 103/60; PULSE 59; RESP 19; O2SAT 99
== END 2024-11-26 21:30 | disposition home or self-care (01) ==
PROVIDERS: Nurse Practitioner Family; Emergency Provider Emergency Medicine; PCP Family Medicine
DX: N39.0 Urinary tract infection, site not specified (principal); R31.9 Hematuria, unspecified; N18.9 Chronic kidney disease, unspecified; E11.22 Type 2 diabetes mellitus with diabetic chronic kidney disease; N40.0 Benign prostatic hyperplasia without lower urinary tract symptoms
CPT/HCPCS: 36415; 80053; 81001; 85025; 85610; 85730; 87086; 96361; 96365; 99284; J0696; J7030